=== PATIENT | male | born 1940 | race Caucasian/White ===

== ENCOUNTER 2017-02-08 08:58 | Inpatient (IN) | payer OTHER ==
[~2017-02-08] VITALS: Ht 175.3 cm; Wt 128.5 kg
[~2017-02-08 08:58] MED LIST: ACAR25TA PO; ALBU0.63 NEB; ASPI-612 PO; ASPI-618 PO; ASPI325T8 PO; ASPI81TA44 PO; BUME2TAB PO; CHOL10003 PO; CLOP75TA PO; FERR325T58 PO; FURO-68 PO; GLIP10TA13 PO; GLYB5TAB3 PO; HYDR-2678 PO; HYDR-2758 PO; INSU100C4 SQ; INSU100I13 SQ; INSU100I17 SQ; LEVO250T25 PO; LEVO500T59 PO; LIRA0.6P SQ; LISI-334 PO; Lidocaine Hcl MM; METF-620 PO; METO2.5T PO; METO25TA4 PO; MULT-208 PO; PHEN-444 PO; SIMV40TA3 PO; SPIR25TA3 PO; TAMS0.4C2 PO; TAMS0.4C97 PO; TORS20TA PO; TORS20TA2 PO; TRAZ50TA15 PO; WARF5TAB7 PO; ZOLP10TA4 PO
--- NOTE | 2017-02-08 09:26 | EKG ---
[facility] [address] [place] [address] Test Date: 2017-02-08 Test Time: 09:10:03 Pat Name: BRIDGET TATE Department: Room: Gender: M Jaw Skinner: : 1940 Requested By: CYDNEY ZAVALA Order Number: [id number] Reading MD: Teddy Butler MD Measurements Intervals [place] Rate: 98 P: -47 NM: 186 QRS: -54 QRSD: 180 T: 127 QT: 402 QTc: 515 Interpretive Statements V-PACED RHYTHM Electronically Signed On 02-11-2017 14:13:06 PHOTOGRAPHER by Teddy Butler MD
[2017-02-08 09:30] LABS: BASO # 0.1 x10^3/uL (0.0-0.2); BASO % 1 % (0-3); EOS % 5 % (0-3); HEMATOCRIT 33.8 % (39.0-53.0); HEMOGLOBIN 11.1 g/dL (13.0-17.5); LYMPH # 1.2 x10^3/uL (1.0-4.8); LYMPH % 10 % (24-48); MEAN CORPUSCULAR HEMOGLOBIN 28 pg (25-35); MEAN CORPUSCULAR HGB CONC 33 g/dL (31-37); MEAN CORPUSCULAR VOLUME 85 fL (79-100); MONO % 11 % (0-9); NEUT % 74 % (31-73); PLATELET COUNT 348 x10^3/uL (140-400); RED BLOOD COUNT 3.98 x10^6/uL (4.30-5.70); RED CELL DISTRIBUTION WIDTH 15.1 % (11.5-14.5); WHITE BLOOD COUNT 12.4 x10^3/uL (4.0-11.0)
[2017-02-08] MEDS ORDERED: FUROSEMIDE 40 MG/4 ML VIAL. IVP ONE (09:30)
[2017-02-08] MEDS ORDERED: IPRATRPIUM/ALBUTEROL 0.5/2.5MG 3 ML NEBU. NEB ONE (09:30)
[2017-02-08] MEDS ORDERED: NITROGLYCERIN OINT 1 GM PACKET. TP ONE (09:30)
[2017-02-08 09:42] LABS: CREATININE 2.9 mg/dL (0.7-1.3); GFR 21.3; POTASSIUM 3.8 mmol/L (3.5-5.1)
--- NOTE | 2017-02-08 09:42 | PHYS DOC ---
Past Medical History Past Medical History: Anxiety, CHF, COPD, Diabetes-Type II, Heart Disease, Hypertension, Renal Disease Past Surgical History: Coronary Bypass Surgery, Pacemaker, Tonsillectomy Alcohol Use: Rarely Drug Use: None Adult General Chief Complaint Chief Complaint: SHORTNESS OF BREATH HPI HPI Patient is a 76 year old with history of CHF who presents with orthopnea and dyspnea at rest. Symptoms been progressive for the past 2 weeks and been associated with a 7 pound weight gain with increased peripheral edema. e. Patient compliant with medications but did not take blood pressure medications this morning. Patient states he has had general increase in shortness of breath over the past 2 months he has been sleeping nightly in a recliner as he is unable to lie supine. He has not seen his primary care doctor chemical detection expert during this time. Patient currently denies fever, chills or sweats cough, chest pain, chest tightness, no nausea, or vomiting. No other acute symptoms or complaints. Patient's chemical detection expert is Dr. Ibarra. [] Review of Systems Review of Systems ROS as per HPI. All other systems were reviewed and found to be within normal limits, except as documented in this note. Current Medications Current Medications Current Medications Medications (Trade) Dose Ordered Sig/Cherie Start Time Stop Time Status Last Admin Dose Admin Albuterol/ Ipratropium (Duoneb) 3 ml 1X ONCE 02/08/17 09:30 02/08/17 09:38 DC 02/08/17 10:25 3 ML Furosemide (Lasix) 40 mg 1X ONCE 02/08/17 09:30 02/08/17 09:38 DC 02/08/17 09:45 40 MG Furosemide 100 mg/ Sodium Chloride 100 ml @ 0 mls/hr CONT PRN 02/08/17 11:30 Nitroglycerin (Nitro-Bid Oint) 1 inch 1X ONCE 02/08/17 09:30 02/08/17 09:38 DC 02/08/17 09:45 1 INCH Ondansetron HCl (Zofran) 4 mg PRN Q8HRS PRN 02/08/17 11:30 02/09/17 11:29 Allergies Allergies Allergies Coded Allergies Type Severity Reaction Last Updated Verified bacitracin Allergy Intermediate 05/07/14 Yes neomycin Allergy Intermediate 05/07/14 Yes polymyxin B Allergy Intermediate 05/07/14 Yes Physical Exam Physical Exam Constitutional: Well developed, well nourished, no acute distress, non-toxic appearance. [] HENT: Normocephalic, atraumatic, bilateral external ears normal, oropharynx moist, no oral exudates, nose normal. [] Eyes: PERRLA, EOMI, conjunctiva normal, no discharge. [] Neck: Normal range of motion, no tenderness, supple, no stridor. [] Cardiovascular:Heart rate regular rhythm, no murmur, pitting edema of lower extremities [] Lungs & Thorax: Bilateral breath sounds clear and is coarse breath sounds bilaterally.[] Abdomen: Bowel sounds normal, soft, habitus limiting exam.[] Extremities: No tenderness, no cyanosis. [] Neurologic: Alert and oriented X 3, normal motor function, normal sensory function, no focal deficits noted. [] Psychologic: Affect normal, judgement normal, mood normal. [] Current Patient Data Vital Signs Vital Signs Date Time Temp Pulse Resp B/P (MAP) Pulse Ox O2 Delivery O2 Flow Rate FiO2 02/08/17 10:33 86 24 164/69 (100) 94 Nasal Cannula 2.0 02/08/17 09:04 98.1 98.1 Lab Values Laboratory Tests Test 02/08/17 09:16 02/08/17 10:20 White Blood Count 12.4 x10^3/uL (4.0-11.0) H Red Blood Count 3.98 x10^6/uL (4.30-5.70) L Hemoglobin 11.1 g/dL (13.0-17.5) L Hematocrit 33.8 % (39.0-53.0) L Mean Corpuscular Volume 85 fL (79-100) Mean Corpuscular Hemoglobin 28 pg (25-35) Mean Corpuscular Hemoglobin Concent 33 g/dL (31-37) Red Cell Distribution Width 15.1 % (11.5-14.5) H Platelet Count 348 x10^3/uL (140-400) Neutrophils (%) (Auto) 74 % (31-73) H Lymphocytes (%) (Auto) 10 % (24-48) L Monocytes (%) (Auto) 11 % (0-9) H Eosinophils (%) (Auto) 5 % (0-3) H Basophils (%) (Auto) 1 % (0-3) Neutrophils # (Auto) 9.2 x10^3uL (1.8-7.7) H Lymphocytes # (Auto) 1.2 x10^3/uL (1.0-4.8) Monocytes # (Auto) 1.3 x10^3/uL (0.0-1.1) H Eosinophils # (Auto) 0.6 x10^3/uL (0.0-0.7) Basophils # (Auto) 0.1 x10^3/uL (0.0-0.2) Prothrombin Time 14.2 SEC (11.7-14.0) H Prothrombin Time INR 1.2 (0.8-1.1) H Sodium Level 127 mmol/L (136-145) L Potassium Level 3.8 mmol/L (3.5-5.1) Chloride Level 86 mmol/L (98-107) L Carbon Dioxide Level 26 mmol/L (21-32) Anion Gap 15 (6-14) H Blood Urea Nitrogen 60 mg/dL (8-26) H Creatinine 2.9 mg/dL (0.7-1.3) H Estimated GFR (Cockcroft-Gault) 21.3 BUN/Creatinine Ratio 21 (6-20) H Glucose Level 181 mg/dL (70-99) H Calcium Level 9.0 mg/dL (8.5-10.1) Total Bilirubin 0.9 mg/dL (0.2-1.0) Aspartate Amino Transferase (AST) 35 U/L (15-37) Alanine Aminotransferase (ALT) 24 U/L (16-63) Alkaline Phosphatase 68 U/L (46-116) Troponin I Quantitative 0.044 ng/mL (0.000-0.055) TL-Rad-R-Type Natriuretic Peptide 9315 pg/mL (0-449) H Total Protein 7.4 g/dL (6.4-8.2) Albumin 3.2 g/dL (3.4-5.0) L Albumin/Globulin Ratio 0.8 (1.0-1.7) L Urine Collection Type Unknown Urine Color Yellow Urine Clarity Cloudy Urine pH 6.0 Urine Specific [place] 1.010 Urine Protein Negative mg/dL (NEG-TRACE) Urine Glucose (UA) Negative mg/dL (NEG) Urine Ketones (Stick) Negative mg/dL (NEG) Urine Blood Negative (NEG) Urine Nitrite Negative (NEG) Urine Bilirubin Negative (NEG) Urine Urobilinogen Dipstick 0.2 mg/dL (0.2 mg/dL) Urine Leukocyte Esterase Large (NEG) Urine RBC 0 /HPF (0-2) Urine WBC >40 /HPF (0-4) Urine Squamous Epithelial Cells Few /LPF Urine Bacteria Few /HPF (0-FEW) Urine Hyaline Casts Few /HPF Laboratory Tests 02/08/17 09:16 Laboratory Tests 02/08/17 09:16 EKG EKG [EKG: A. fib, rate 98, left axis deviation, no acute ST-T wave changes.] Radiology/Procedures Radiology/Procedures [Chest x-ray: Mild pulmonary vascular congestion per radiology report.] Course & Med Decision Making Course & Med Decision Making Pertinent Labs and Imaging studies reviewed. (See chart for details) [Patient with congestive heart failure, chronic renal insufficiency and hyponatremia. Will admit.] Dragon Disclaimer Dragon Disclaimer This electronic medical record was generated, in whole or in part, using a voice recognition dictation system. Departure Departure Impression: Primary Impression: CHF (congestive heart failure) Disposition: ADMITTED INPATIENT Admitting Physician: Albin Damon Condition: STABLE Referrals: UNKNOWN PCP NAME (PCP) CYDNEY ZAVALA DO Feb 08, 2017 09:42
[2017-02-08 09:54] LABS: ALBUMIN 3.2 g/dL (3.4-5.0); ALBUMIN/GLOBULIN RATIO 0.8 (1.0-1.7); TOTAL BILIRUBIN 0.9 mg/dL (0.2-1.0); TOTAL PROTEIN 7.4 g/dL (6.4-8.2)
--- NOTE | 2017-02-08 10:00 | RAD ---
Portable chest, 02/08/2017: History: Shortness of breath, congestive heart failure, COPD Comparison is made to a study from 11/24/2016. There has been a previous median sternotomy. A left-sided transvenous pacemaker is in place with 2 leads extending in the right heart. The heart is enlarged. The pulmonary vascularity appears congested. There are prominent perihilar pulmonary markings compatible with mild parahilar-perivascular pulmonary edema. No significant pleural fluid is seen. IMPRESSION: Mild congestive heart failure
[2017-02-08 10:44] LABS: BILIRUBIN,URINE NEGATIVE (NEG); GLUCOSE,URINE NEGATIVE (NEG); NITRITE,URINE NEGATIVE (NEG); PROTEIN,URINE NEGATIVE (NEG-TRACE); UROBILINOGEN,URINE 0.2 mg/dL (0.2 mg/dL)
[2017-02-08 10:56] LABS: BACTERIA,URINE FEW /HPF (0-FEW); RBC,URINE 0 /HPF (0-2); SQUAMOUS EPITHELIAL CELL,UR FEW /LPF; WBC,URINE >40 /HPF (0-4)
[2017-02-08] MEDS ORDERED: ONDANSETRON PF 4 MG/2 ML VIAL. IV PRN ×2 (11:30→16:30)
[2017-02-08 11:52] LABS: INR 1.2 (0.8-1.1); PROTHROMBIN TIME PATIENT 14.2 SEC (11.7-14.0)
[2017-02-08 12:30] VITALS: BP 121/46
[2017-02-08] MEDS ORDERED: TRAZ100T12 PO (13:54)
[2017-02-08] MEDS: FUROSEMIDE INJ 100 MG in IV NORMAL SALINE 100ML 100 ML IV PRN (14:42)
[2017-02-08 15:00] VITALS: BP 129/52
--- NOTE | 2017-02-08 15:26 | PDOC2 ---
CONSULT Date of Consult Date of Consult DATE: 02/08/17 TIME: 15:18 Reason for Consult Reason for Consult: Dyspnea Referring Physician Referring Physician: Dr Damon Identification/Chief Complaint Chief Complaint Dyspnea Problems: History of Present Illness Reason for Visit: This patient is a 76-year-old gentleman that has a known history of an ischemic cardiomyopathy, hypertension, chronic renal disease and usually I see him at the [facility]. The last echocardiogram that the patient had was done 2 months ago and it showed : Technically difficult study. Left ventricle systolic function is severely impaired. The Ejection Fraction is 25%. The left atrium is moderately dilated. There is a pacemaker lead in the right atrium and right ventricle. Mild tricuspid regurgitation. The pulmonary artery systolic pressure is estimated at 33 mmHg. There is no evidence of significant pericardial effusion. For several days the patient has been getting more and more short of breath and more and more edematous and is unable to get around like he used to because of increasing shortness of breath. He came into the emergency room and after being seen and evaluated he was admitted. At the time that I saw him he is complaining of dyspnea and denies any angina. Past Medical History Cardiovascular: CAD, CHF, HTN, [place], Hyperlipidemia GI: No pertinent hx, Constipation Renal/: Chronic renal insuff Endocrine: Diabetes Past Surgical History Past Surgical History: Pacemaker, Arthroscopy, CABG Family History Family History: Hypertension Social History ALCOHOL: none Drugs: None Current Problem List Problem List Problems Medical Problems: (1) CHF (congestive heart failure) Status: Acute Current Medications Current Medications Current Medications Albuterol/ Ipratropium (Duoneb) 3 ml 1X ONCE NEB Last administered on 10:25; Start 02/08/17 at 09:30; Stop 02/08/17 at 09:38; Status DC Nitroglycerin (Nitro-Bid Oint) 1 inch 1X ONCE TP Last administered on 09:45; Start 02/08/17 at 09:30; Stop 02/08/17 at 09:38; Status DC Furosemide (Lasix) 40 mg 1X ONCE IVP Last administered on 02/08/17 09:45; Start 02/08/17 at 09:30; Stop 02/08/17 at 09:38; Status DC Ondansetron HCl (Zofran) 4 mg PRN Q8HRS PRN IV NAUSEA/VOMITING; Start at 11:30; Stop 02/09/17 at 11:29 Furosemide 100 mg/ Sodium Chloride 100 ml @ 0 mls/hr CONT PRN IV PER PROTOCOL Last administered on 02/08/17t 14:42; Start 02/08/17 at 11:30 Active Scripts Active Novolog (Insulin Aspart) 100 Unit/1 Ml Cartridge 25 Unit SQ TID 30 Days Metolazone 2.5 Mg Tablet 2.5 Mg PO DAILY Flomax (Tamsulosin Hcl) 0.4 Mg Cap.er.24h 0.4 Mg PO DAILY Reported Trazodone Hcl 100 Mg Tablet 100 Mg PO HS Glipizide 10 Mg Tablet 1 Tab PO BID Spironolactone 25 Mg Tablet 1 Tab PO DAILY Multi-Day Vitamins (Multivitamin) 1 Each Tablet 1 Tab PO DAILY Vitamin D3 (Cholecalciferol (Vitamin D3)) 1,000 Unit Tablet 1 Tab PO DAILY Aspirin 325 Mg Tablet 1 Tab PO DAILY Bumetanide 2 Mg Tablet 1 Tab PO DAILY Lantus Solostar (Insulin Glargine,Hum.rec.anlog) 100 Unit/1 Ml Insuln.pen 75 Unit SQ QHS Clopidogrel (Clopidogrel Bisulfate) 75 Mg Tablet 1 Tab PO DAILY Allergies Allergies: Coded Allergies: bacitracin (Verified Allergy, Intermediate, 05/07/14) neomycin (Verified Allergy, Intermediate, 05/07/14) polymyxin B (Verified Allergy, Intermediate, 05/07/14) Physical Exam General: Alert, Oriented X3, Cooperative, mild distress HEENT: PERRLA Lungs: Other (decreased breath sounds with bibasilar rales about a third of the way up. Mild wheezing.) Heart: Regular rate, Other (S1-S2 positive S3.) Abdomen: Normal bowel sounds, Soft Extremities: Other (2-3+ pitting edema of both lower extremities) Psych/Mental Status: Mental status NL Vitals VITALS Vital Signs Date Time Temp Pulse Resp B/P (MAP) Pulse Ox O2 Delivery O2 Flow Rate FiO2 02/08/17 12:15 90 18 119/72 (88) 98 Nasal Cannula 2.0 02/08/17 09:04 98.1 98.1 Labs Labs Laboratory Tests Test 02/08/17 09:16 02/08/17 10:20 White Blood Count 12.4 x10^3/uL (4.0-11.0) Red Blood Count 3.98 x10^6/uL (4.30-5.70) Hemoglobin 11.1 g/dL (13.0-17.5) Hematocrit 33.8 % (39.0-53.0) Mean Corpuscular Volume 85 fL (79-100) Mean Corpuscular Hemoglobin 28 pg (25-35) Mean Corpuscular Hemoglobin Concent 33 g/dL (31-37) Red Cell Distribution Width 15.1 % (11.5-14.5) Platelet Count 348 x10^3/uL (140-400) Neutrophils (%) (Auto) 74 % (31-73) Lymphocytes (%) (Auto) 10 % (24-48) Monocytes (%) (Auto) 11 % (0-9) Eosinophils (%) (Auto) 5 % (0-3) Basophils (%) (Auto) 1 % (0-3) Neutrophils # (Auto) 9.2 x10^3uL (1.8-7.7) Lymphocytes # (Auto) 1.2 x10^3/uL (1.0-4.8) Monocytes # (Auto) 1.3 x10^3/uL (0.0-1.1) Eosinophils # (Auto) 0.6 x10^3/uL (0.0-0.7) Basophils # (Auto) 0.1 x10^3/uL (0.0-0.2) Prothrombin Time 14.2 SEC (11.7-14.0) Prothromb Time International Ratio 1.2 (0.8-1.1) Sodium Level 127 mmol/L (136-145) Potassium Level 3.8 mmol/L (3.5-5.1) Chloride Level 86 mmol/L (98-107) Carbon Dioxide Level 26 mmol/L (21-32) Anion Gap 15 (6-14) Blood Urea Nitrogen 60 mg/dL (8-26) Creatinine 2.9 mg/dL (0.7-1.3) Estimated GFR (Cockcroft-Gault) 21.3 BUN/Creatinine Ratio 21 (6-20) Glucose Level 181 mg/dL (70-99) Calcium Level 9.0 mg/dL (8.5-10.1) Total Bilirubin 0.9 mg/dL (0.2-1.0) Aspartate Amino Transf (AST/SGOT) 35 U/L (15-37) Alanine Aminotransferase (ALT/SGPT) 24 U/L (16-63) Alkaline Phosphatase 68 U/L (46-116) Troponin I Quantitative 0.044 ng/mL (0.000-0.055) QQ-Mrd-N-Type Natriuretic Peptide 9315 pg/mL (0-449) Total Protein 7.4 g/dL (6.4-8.2) Albumin 3.2 g/dL (3.4-5.0) Albumin/Globulin Ratio 0.8 (1.0-1.7) Urine Collection Type Unknown Urine Color Yellow Urine Clarity Cloudy Urine pH 6.0 Urine Specific [place] 1.010 Urine Protein Negative mg/dL (NEG-TRACE) Urine Glucose (UA) Negative mg/dL (NEG) Urine Ketones (Stick) Negative mg/dL (NEG) Urine Blood Negative (NEG) Urine Nitrite Negative (NEG) Urine Bilirubin Negative (NEG) Urine Urobilinogen Dipstick 0.2 mg/dL (0.2 mg/dL) Urine Leukocyte Esterase Large (NEG) Urine RBC 0 /HPF (0-2) Urine WBC >40 /HPF (0-4) Urine Squamous Epithelial Cells Few /LPF Urine Bacteria Few /HPF (0-FEW) Urine Hyaline Casts Few /HPF Laboratory Tests Test 02/08/17 09:16 02/08/17 10:20 White Blood Count 12.4 x10^3/uL (4.0-11.0) Red Blood Count 3.98 x10^6/uL (4.30-5.70) Hemoglobin 11.1 g/dL (13.0-17.5) Hematocrit 33.8 % (39.0-53.0) Mean Corpuscular Volume 85 fL (79-100) Mean Corpuscular Hemoglobin 28 pg (25-35) Mean Corpuscular Hemoglobin Concent 33 g/dL (31-37) Red Cell Distribution Width 15.1 % (11.5-14.5) Platelet Count 348 x10^3/uL (140-400) Neutrophils (%) (Auto) 74 % (31-73) Lymphocytes (%) (Auto) 10 % (24-48) Monocytes (%) (Auto) 11 % (0-9) Eosinophils (%) (Auto) 5 % (0-3) Basophils (%) (Auto) 1 % (0-3) Neutrophils # (Auto) 9.2 x10^3uL (1.8-7.7) Lymphocytes # (Auto) 1.2 x10^3/uL (1.0-4.8) Monocytes # (Auto) 1.3 x10^3/uL (0.0-1.1) Eosinophils # (Auto) 0.6 x10^3/uL (0.0-0.7) Basophils # (Auto) 0.1 x10^3/uL (0.0-0.2) Prothrombin Time 14.2 SEC (11.7-14.0) Prothromb Time International Ratio 1.2 (0.8-1.1) Sodium Level 127 mmol/L (136-145) Potassium Level 3.8 mmol/L (3.5-5.1) Chloride Level 86 mmol/L (98-107) Carbon Dioxide Level 26 mmol/L (21-32) Anion Gap 15 (6-14) Blood Urea Nitrogen 60 mg/dL (8-26) Creatinine 2.9 mg/dL (0.7-1.3) Estimated GFR (Cockcroft-Gault) 21.3 BUN/Creatinine Ratio 21 (6-20) Glucose Level 181 mg/dL (70-99) Calcium Level 9.0 mg/dL (8.5-10.1) Total Bilirubin 0.9 mg/dL (0.2-1.0) Aspartate Amino Transf (AST/SGOT) 35 U/L (15-37) Alanine Aminotransferase (ALT/SGPT) 24 U/L (16-63) Alkaline Phosphatase 68 U/L (46-116) Troponin I Quantitative 0.044 ng/mL (0.000-0.055) YC-Cgg-L-Type Natriuretic Peptide 9315 pg/mL (0-449) Total Protein 7.4 g/dL (6.4-8.2) Albumin 3.2 g/dL (3.4-5.0) Albumin/Globulin Ratio 0.8 (1.0-1.7) Urine Collection Type Unknown Urine Color Yellow Urine Clarity Cloudy Urine pH 6.0 Urine Specific [place] 1.010 Urine Protein Negative mg/dL (NEG-TRACE) Urine Glucose (UA) Negative mg/dL (NEG) Urine Ketones (Stick) Negative mg/dL (NEG) Urine Blood Negative (NEG) Urine Nitrite Negative (NEG) Urine Bilirubin Negative (NEG) Urine Urobilinogen Dipstick 0.2 mg/dL (0.2 mg/dL) Urine Leukocyte Esterase Large (NEG) Urine RBC 0 /HPF (0-2) Urine WBC >40 /HPF (0-4) Urine Squamous Epithelial Cells Few /LPF Urine Bacteria Few /HPF (0-FEW) Urine Hyaline Casts Few /HPF Assessment/Plan Assessment/Plan This patient with a dilated ischemic cardiomyopathy comes in with acute on chronic systolic CHF. He has chronic renal disease and in view of this and a creatinine that is above 2 I would recommend to start the patient on a Lasix drip at 10 mg per hour rather than doing boluses. I would also like to start the patient on a dobutamine drip at 5 mics per KG per minute. We need to have an accurate I/O therefore I would also recommend a Srivastava. I will be happy to follow the patient with you. Thank you very much for asking me to participate in the care of this patient. OKSANA JOSEPH MD Feb 08, 2017 15:26
[2017-02-08] MEDS ORDERED: DEXTROSE 50% 25 GM / 50ML DISP.SYRIN. IV PRN (16:30)
[2017-02-08] MEDS ORDERED: hydrALAZINE 20 MG/ML VIAL. IVP PRN (16:30)
[2017-02-08] MEDS ORDERED: MORPHINE SULFATE 4 MG/ML DISP.SYRIN. IV PRN (16:30)
[2017-02-08] MEDS ORDERED: ACETAMINOPHEN 325 MG TABLET. PO PRN (16:30)
[2017-02-08] MEDS ORDERED: ALBUTEROL SULFATE 2.5 MG/3 ML NEBU. NEB PRN (16:30)
--- NOTE | 2017-02-08 16:32 | PDOC1 ---
History and Physical Date of Admission Date of Admission 02/08/17 Identification/Chief Complaint Chief Complaint sob Problems: Source Source: Chart review, Patient History of Present Illness History of Present Illness HPI HPI Patient is a 76 year old with history of CHF who presents with orthopnea and dyspnea at rest x 2 weeks. pt said he didnot get Echo this year, but as per dr. Ohara, 2ms ago echo showed Ef 25%. pt said has sob for 2 weeks, no home o2, orthopnea, also cough with some green sputum, denies fever, chills. Cannot sleep in bed, use recliner to sleep for at lest 2 months. He is on diuretics, watching his salt intake, noticed bl leg more edema then came to ER. denies N/V, diarrhea. Patient's cyber engineer is Dr. Ibarra. Past Medical History Cardiovascular: CAD, CHF, HTN, [place], Hyperlipidemia GI: No pertinent hx, Constipation Renal/: Chronic renal insuff Endocrine: Diabetes Past Surgical History Past Surgical History: Pacemaker, Arthroscopy, CABG Family History Family History: Hypertension Social History Smoke: No ALCOHOL: none Drugs: None Current Problem List Problem List Problems Medical Problems: (1) CHF (congestive heart failure) Status: Acute Current Medications Current Medications Current Medications Medications (Trade) Dose Ordered Sig/Cherie Start Time Stop Time Status Last Admin Dose Admin Albuterol/ Ipratropium (Duoneb) 3 ml 1X ONCE 02/08/17 09:30 02/08/17 09:38 DC 02/08/17 10:25 3 ML Furosemide (Lasix) 40 mg 1X ONCE 02/08/17 09:30 02/08/17 09:38 DC 02/08/17 09:45 40 MG Furosemide 100 mg/ Sodium Chloride 100 ml @ 0 mls/hr CONT PRN 02/08/17 11:30 02/08/17 14:42 10 MLS/HR Nitroglycerin (Nitro-Bid Oint) 1 inch 1X ONCE 02/08/17 09:30 02/08/17 09:38 DC 02/08/17 09:45 1 INCH Ondansetron HCl (Zofran) 4 mg PRN Q8HRS PRN 02/08/17 11:30 02/09/17 11:29 Allergies Allergies Allergies Coded Allergies Type Severity Reaction Last Updated Verified bacitracin Allergy Intermediate 05/07/14 Yes neomycin Allergy Intermediate 05/07/14 Yes polymyxin B Allergy Intermediate 05/07/14 Yes ROS Review of System CONSTITUTIONAL: No fever or chills EYES: No recent changes SKIN: No rash or itching CARDIOVASCULAR: No chest pain, syncope, palpitations, or edema RESPIRATORY: No SOB or cough GASTROINTESTINAL: No nausea, vomiting or abdominal pain NEUROLOGICAL: No headaches or weakness ENDOCRINE: No cold or heat intolerance GENITOURINARY: No urgency or frequency of urination MUSCULOSKELETAL: No back pain or joint pain LYMPHATICS: No enlarged lymph nodes PSYCHIATRIC: No anxiety or depression Physical Exam Physical Exam GEN.: No apparent distress. Alert and oriented. HEENT: Head is normocephalic, atraumatic NECK: Supple. LUNGS: bl lower lob moderate crackles HEART: RRR, S1, S2 present. Peripheral pulses intact ABDOMEN: Soft, nontender. Positive bowel sounds. EXTREMITIES: Without any cyanosis. bl leg 2+ edema NEUROLOGIC: Normal speech, normal tone PSYCHIATRIC: Normal affect, normal mood. SKIN: No ulcerations Vitals Vitals Vital Signs Date Time Temp Pulse Resp B/P (MAP) Pulse Ox O2 Delivery O2 Flow Rate FiO2 02/08/17 12:30 97.3 99 20 121/46 (71) 93 Nasal Cannula 2.0 97.3 Labs Labs Laboratory Tests Test 02/08/17 09:16 02/08/17 10:20 White Blood Count 12.4 x10^3/uL (4.0-11.0) Red Blood Count 3.98 x10^6/uL (4.30-5.70) Hemoglobin 11.1 g/dL (13.0-17.5) Hematocrit 33.8 % (39.0-53.0) Mean Corpuscular Volume 85 fL (79-100) Mean Corpuscular Hemoglobin 28 pg (25-35) Mean Corpuscular Hemoglobin Concent 33 g/dL (31-37) Red Cell Distribution Width 15.1 % (11.5-14.5) Platelet Count 348 x10^3/uL (140-400) Neutrophils (%) (Auto) 74 % (31-73) Lymphocytes (%) (Auto) 10 % (24-48) Monocytes (%) (Auto) 11 % (0-9) Eosinophils (%) (Auto) 5 % (0-3) Basophils (%) (Auto) 1 % (0-3) Neutrophils # (Auto) 9.2 x10^3uL (1.8-7.7) Lymphocytes # (Auto) 1.2 x10^3/uL (1.0-4.8) Monocytes # (Auto) 1.3 x10^3/uL (0.0-1.1) Eosinophils # (Auto) 0.6 x10^3/uL (0.0-0.7) Basophils # (Auto) 0.1 x10^3/uL (0.0-0.2) Prothrombin Time 14.2 SEC (11.7-14.0) Prothromb Time International Ratio 1.2 (0.8-1.1) Sodium Level 127 mmol/L (136-145) Potassium Level 3.8 mmol/L (3.5-5.1) Chloride Level 86 mmol/L (98-107) Carbon Dioxide Level 26 mmol/L (21-32) Anion Gap 15 (6-14) Blood Urea Nitrogen 60 mg/dL (8-26) Creatinine 2.9 mg/dL (0.7-1.3) Estimated GFR (Cockcroft-Gault) 21.3 BUN/Creatinine Ratio 21 (6-20) Glucose Level 181 mg/dL (70-99) Calcium Level 9.0 mg/dL (8.5-10.1) Total Bilirubin 0.9 mg/dL (0.2-1.0) Aspartate Amino Transf (AST/SGOT) 35 U/L (15-37) Alanine Aminotransferase (ALT/SGPT) 24 U/L (16-63) Alkaline Phosphatase 68 U/L (46-116) Troponin I Quantitative 0.044 ng/mL (0.000-0.055) IA-Cvn-Z-Type Natriuretic Peptide 9315 pg/mL (0-449) Total Protein 7.4 g/dL (6.4-8.2) Albumin 3.2 g/dL (3.4-5.0) Albumin/Globulin Ratio 0.8 (1.0-1.7) Urine Collection Type Unknown Urine Color Yellow Urine Clarity Cloudy Urine pH 6.0 Urine Specific [place] 1.010 Urine Protein Negative mg/dL (NEG-TRACE) Urine Glucose (UA) Negative mg/dL (NEG) Urine Ketones (Stick) Negative mg/dL (NEG) Urine Blood Negative (NEG) Urine Nitrite Negative (NEG) Urine Bilirubin Negative (NEG) Urine Urobilinogen Dipstick 0.2 mg/dL (0.2 mg/dL) Urine Leukocyte Esterase Large (NEG) Urine RBC 0 /HPF (0-2) Urine WBC >40 /HPF (0-4) Urine Squamous Epithelial Cells Few /LPF Urine Bacteria Few /HPF (0-FEW) Urine Hyaline Casts Few /HPF Laboratory Tests Test 02/08/17 09:16 02/08/17 10:20 White Blood Count 12.4 x10^3/uL (4.0-11.0) Red Blood Count 3.98 x10^6/uL (4.30-5.70) Hemoglobin 11.1 g/dL (13.0-17.5) Hematocrit 33.8 % (39.0-53.0) Mean Corpuscular Volume 85 fL (79-100) Mean Corpuscular Hemoglobin 28 pg (25-35) Mean Corpuscular Hemoglobin Concent 33 g/dL (31-37) Red Cell Distribution Width 15.1 % (11.5-14.5) Platelet Count 348 x10^3/uL (140-400) Neutrophils (%) (Auto) 74 % (31-73) Lymphocytes (%) (Auto) 10 % (24-48) Monocytes (%) (Auto) 11 % (0-9) Eosinophils (%) (Auto) 5 % (0-3) Basophils (%) (Auto) 1 % (0-3) Neutrophils # (Auto) 9.2 x10^3uL (1.8-7.7) Lymphocytes # (Auto) 1.2 x10^3/uL (1.0-4.8) Monocytes # (Auto) 1.3 x10^3/uL (0.0-1.1) Eosinophils # (Auto) 0.6 x10^3/uL (0.0-0.7) Basophils # (Auto) 0.1 x10^3/uL (0.0-0.2) Prothrombin Time 14.2 SEC (11.7-14.0) Prothromb Time International Ratio 1.2 (0.8-1.1) Sodium Level 127 mmol/L (136-145) Potassium Level 3.8 mmol/L (3.5-5.1) Chloride Level 86 mmol/L (98-107) Carbon Dioxide Level 26 mmol/L (21-32) Anion Gap 15 (6-14) Blood Urea Nitrogen 60 mg/dL (8-26) Creatinine 2.9 mg/dL (0.7-1.3) Estimated GFR (Cockcroft-Gault) 21.3 BUN/Creatinine Ratio 21 (6-20) Glucose Level 181 mg/dL (70-99) Calcium Level 9.0 mg/dL (8.5-10.1) Total Bilirubin 0.9 mg/dL (0.2-1.0) Aspartate Amino Transf (AST/SGOT) 35 U/L (15-37) Alanine Aminotransferase (ALT/SGPT) 24 U/L (16-63) Alkaline Phosphatase 68 U/L (46-116) Troponin I Quantitative 0.044 ng/mL (0.000-0.055) HE-Zbg-C-Type Natriuretic Peptide 9315 pg/mL (0-449) Total Protein 7.4 g/dL (6.4-8.2) Albumin 3.2 g/dL (3.4-5.0) Albumin/Globulin Ratio 0.8 (1.0-1.7) Urine Collection Type Unknown Urine Color Yellow Urine Clarity Cloudy Urine pH 6.0 Urine Specific [place] 1.010 Urine Protein Negative mg/dL (NEG-TRACE) Urine Glucose (UA) Negative mg/dL (NEG) Urine Ketones (Stick) Negative mg/dL (NEG) Urine Blood Negative (NEG) Urine Nitrite Negative (NEG) Urine Bilirubin Negative (NEG) Urine Urobilinogen Dipstick 0.2 mg/dL (0.2 mg/dL) Urine Leukocyte Esterase Large (NEG) Urine RBC 0 /HPF (0-2) Urine WBC >40 /HPF (0-4) Urine Squamous Epithelial Cells Few /LPF Urine Bacteria Few /HPF (0-FEW) Urine Hyaline Casts Few /HPF VTE Prophylaxis Ordered VTE Prophylaxis Devices: Yes VTE Pharmacological Prophylaxi: Yes Assessment/Plan Assessment/Plan acute resp failure with hypoxia acute on chronic systolic CHF exacerbation EF 25% PPM COPD DM2 ON insulin htn h/o CAD with CABG anxiety 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 Ohara, on lasix drip and dobutamin slightly decrease insulin to levemir 60u qhs, aspart 20u tid, ssi cont home meds, hold po diuretics till ok with card dvt ppx albuterol, duoneb daily weight in and out PTOT NILDA PORTILLO MD Feb 08, 2017 16:32
[2017-02-08] MEDS: IPRATRPIUM/ALBUTEROL 0.5/2.5MG 3 ML NEBU. NEB SCH ×2 (16:39→19:46)
[2017-02-08] MEDS ORDERED: ALPRAZolam 0.25 MG TABLET PO PRN (17:15)
[2017-02-08] MEDS: INSULIN ASPART 300 UNITS/3 ML INSULN.PEN SQ SCH ×2 (17:56→17:57)
[2017-02-08 19:00] VITALS: BP 96/55
[2017-02-08] MEDS: cefTRIAXone IV Push 1 GM VIAL. IVP SCH (20:30)
[2017-02-08] MEDS: traZODone 100 MG TABLET. PO SCH (20:57)
[2017-02-08] MEDS: ALPRAZolam 0.25 MG TABLET PO PRN (20:57)
[2017-02-08] MEDS: HEPARIN PF for SUB-Q USE 5,000 UNIT/0.5 ML VIAL. SQ SCH (21:00)
[2017-02-08] MEDS: INSULIN DETEMIR 300 UNITS/3 ML INSULN.PEN. SQ SCH (21:00)
[2017-02-08] MEDS: traMADol 50 MG TABLET PO PRN (21:45)
[2017-02-08 22:51] VITALS: BP 93/57
[2017-02-09] VITALS (13 sets, daily range): BP systolic 97–152; BP diastolic 35–80
[2017-02-09] MEDS: HEPARIN PF for SUB-Q USE 5,000 UNIT/0.5 ML VIAL. SQ SCH ×3 (06:01→22:16)
[2017-02-09 07:08] LABS: BASO # 0.1 x10^3/uL (0.0-0.2); BASO % 1 % (0-3); EOS % 10 % (0-3); HEMATOCRIT 32.4 % (39.0-53.0); HEMOGLOBIN 10.9 g/dL (13.0-17.5); LYMPH # 1.4 x10^3/uL (1.0-4.8); LYMPH % 13 % (24-48); MEAN CORPUSCULAR HEMOGLOBIN 28 pg (25-35); MEAN CORPUSCULAR HGB CONC 34 g/dL (31-37); MEAN CORPUSCULAR VOLUME 84 fL (79-100); MONO % 12 % (0-9); NEUT % 65 % (31-73); PLATELET COUNT 335 x10^3/uL (140-400); RED BLOOD COUNT 3.83 x10^6/uL (4.30-5.70); WHITE BLOOD COUNT 10.2 x10^3/uL (4.0-11.0)
[2017-02-09 07:13] LABS: CALCIUM 9.3 mg/dL (8.5-10.1); CREATININE 2.6 mg/dL (0.7-1.3); GFR 24.2
[2017-02-09 07:16] LABS: POTASSIUM 2.9 mmol/L (3.5-5.1)
[2017-02-09] MEDS: INSULIN ASPART 300 UNITS/3 ML INSULN.PEN SQ SCH ×6 (07:30→17:33)
[2017-02-09] MEDS: IPRATRPIUM/ALBUTEROL 0.5/2.5MG 3 ML NEBU. NEB SCH ×4 (08:07→20:23)
[2017-02-09] MEDS ORDERED: POTASSIUM CHLORIDE 20 MEQ TABLET.ER. PO ONE ×2 (08:15→12:00)
[2017-02-09] MEDS: FUROSEMIDE INJ 100 MG in IV NORMAL SALINE 100ML 100 ML IV PRN ×2 (08:38→19:44)
[2017-02-09] MEDS: MULTIVITAMIN with MINERAL TABLET. PO SCH (08:41)
[2017-02-09] MEDS: TAMSULOSIN 0.4 MG CAP.ER.24H. PO SCH (08:41)
[2017-02-09] MEDS: CHOLECALCIFEROL (VITAMIN D3) 1,000 UNIT TABLET PO SCH (08:42)
[2017-02-09] MEDS: ASPIRIN 325 MG TABLET PO SCH (08:42)
[2017-02-09] MEDS: CLOPIDOGREL BISULFATE 75 MG TABLET PO SCH (08:42)
[2017-02-09] MEDS: ALPRAZolam 0.25 MG TABLET PO PRN ×2 (08:43→22:35)
[2017-02-09] MEDS ORDERED: metOLazone 2.5 MG TABLET PO SCH (09:00)
[2017-02-09] MEDS ORDERED: SPIRONOLACTONE 25 MG TABLET PO SCH (09:00)
[2017-02-09] MEDS ORDERED: NON FORMULARY ITEM (Bumetanide 1 TAB) PO SCH (09:00)
--- NOTE | 2017-02-09 11:07 | PDOC2 ---
CONSULT Date of Consult Date of Consult DATE: 02/09/17 TIME: 10:55 Reason for Consult Reason for Consult: CKD III/ IV CHF Exac Referring Physician Referring Physician: Dr Damon Identification/Chief Complaint Chief Complaint SOb and edema Problems: Source Source: Chart review, Patient History of Present Illness Reason for Visit: as dictated Past Medical History Cardiovascular: CAD, CHF, HTN, [place], Hyperlipidemia GI: No pertinent hx, Constipation Renal/: Chronic renal insuff Endocrine: Diabetes Past Surgical History Past Surgical History: Pacemaker, Arthroscopy, CABG Family History Family History: Hypertension Social History No ALCOHOL: none Drugs: None Lives: with Family Current Problem List Problem List Problems Medical Problems: (1) CHF (congestive heart failure) Status: Acute Current Medications Current Medications Current Medications Albuterol/ Ipratropium (Duoneb) 3 ml 1X ONCE NEB Last administered on 10:25; Start 02/08/17 at 09:30; Stop 02/08/17 at 09:38; Status DC Nitroglycerin (Nitro-Bid Oint) 1 inch 1X ONCE TP Last administered on 09:45; Start 02/08/17 at 09:30; Stop 02/08/17 at 09:38; Status DC Furosemide (Lasix) 40 mg 1X ONCE IVP Last administered on 02/08/17 09:45; Start 02/08/17 at 09:30; Stop 02/08/17 at 09:38; Status DC Ondansetron HCl (Zofran) 4 mg PRN Q8HRS PRN IV NAUSEA/VOMITING; Start at 11:30; Stop 02/09/17 at 11:29 Furosemide 100 mg/ Sodium Chloride 100 ml @ 0 mls/hr CONT PRN IV PER PROTOCOL Last administered on 02/09/17 08:38; Start 02/08/17 at 11:30 Aspirin (Bhavya Aspirin) 325 mg DAILY PO Last administered on 02/09/17 08:42; Start 02/09/17 at 09:00 Vitamin D (Vitamin D3) 1,000 unit DAILY PO Last administered on 02/09/17 08: 42; Start 02/09/17 at 09:00 Clopidogrel Bisulfate (Plavix) 75 mg DAILY PO Last administered on 02/09/17 08:42; Start 02/09/17 at 09:00 Metolazone (Zaroxolyn) 2.5 mg DAILY PO ; Start 02/09/17 at 09:00; Stop at 09:00; Status DC Spironolactone (Aldactone) 25 mg DAILY PO ; Start 02/09/17 at 09:00 Tamsulosin HCl (Flomax) 0.4 mg DAILY PO Last administered on 02/09/17 08:41; Start 02/09/17 at 09:00 Trazodone HCl (Desyrel) 100 mg HS PO Last administered on 02/08/17 20:57; Start 02/08/17 at 21:00 Non-Formulary Medication 1 tab DAILY PO ; Start 02/09/17 at 09:00; Stop at 09:00; Status DC Glipizide (Glucotrol) 10 mg BIDBFRMEAL PO ; Start 02/09/17 at 17:00 Insulin Aspart (NovoLOG) 20 units TIDAC SQ Last administered on 02/08/17 17: 56; Start 02/08/17 at 16:30 Insulin Detemir (Levemir) 60 units QHS SQ ; Start 02/08/17 at 21:00 Multivitamins (Thera M Plus) 1 tab DAILY PO Last administered on 02/09/17 08: 41; Start 02/09/17 at 09:00 Acetaminophen (Tylenol) 650 mg PRN Q6HRS PRN PO FEVER; Start 02/08/17 at 16:30 Ondansetron HCl (Zofran) 4 mg PRN Q6HRS PRN IV NAUSEA/VOMITING; Start at 16:30 Morphine Sulfate 2 mg PRN Q2HR PRN IV PAIN; Start 02/08/17 at 16:30 Tramadol HCl (Ultram) 50 mg PRN Q6HRS PRN PO PAIN Last administered on 21:45; Start 02/08/17 at 16:30 Hydralazine HCl (Apresoline Inj) 10 mg PRN Q4HRS PRN IVP ELEVATED BP, SEE COMMENTS; Start 02/08/17 at 16:30 Docusate Sodium (Colace) 100 mg PRN DAILY PRN PO CONSTIPATION; Start 02/08/17 at 16:30 Insulin Aspart (NovoLOG) 0-9 UNITS TIDWMEALS SQ Last administered on 17:57; Start 02/08/17 at 17:00 Dextrose (Dextrose 50%-Water Syringe) 12.5 gm PRN Q15MIN PRN IV SEE COMMENTS; Start 02/08/17 at 16:30 Albuterol Sulfate (Ventolin Neb Soln) 2.5 mg PRN Q4HRS PRN NEB SHORTNESS OF BREATH; Start 02/08/17 at 16:30 Albuterol/ Ipratropium (Duoneb) 3 ml RTQID NEB Last administered on 02/09/17 08:07; Start 02/08/17 at 17:00 Heparin Sodium (Porcine) (Heparin Sq) 5,000 unit Q8HRS SQ Last administered on 02/09/17 06:01; Start 02/08/17 at 22:00 Alprazolam (Xanax) 0.25 mg PRN BID PRN PO ANXIETY / AGITATION Last administered on 02/08/17 17:52; Start 02/08/17 at 17:15; Stop 02/08/17 at 19 :44; Status DC Ceftriaxone Sodium 50 ml @ 100 mls/hr DAILY IV ; Start 02/09/17 at 09:00; Status UNV Alprazolam (Xanax) 0.5 mg PRN Q6HRS PRN PO ANXIETY / AGITATION Last administered on 02/09/17 08:43; Start 02/08/17 at 19:45 Ceftriaxone Sodium (Rocephin) 1 gm Q24H IVP Last administered on 02/08/17 20: 30; Start 02/08/17 at 20:00 Potassium Chloride (Klor-Con) 40 meq 1X ONCE PO Last administered on 08:43; Start 02/09/17 at 08:15; Stop 02/09/17 at 08:16; Status DC Potassium Chloride (Klor-Con) 40 meq 1X ONCE PO ; Start 02/09/17 at 12:00; Stop 02/09/17 at 12:01 Dobutamine HCl/ Dextrose 250 ml @ 0 mls/hr CONT PRN IV SEE I/O RECORD Last administered on 02/09/17 08:40; Start 02/09/17 at 08:15 Active Scripts Active Novolog (Insulin Aspart) 100 Unit/1 Ml Cartridge 25 Unit SQ TID 30 Days Metolazone 2.5 Mg Tablet 2.5 Mg PO DAILY Flomax (Tamsulosin Hcl) 0.4 Mg Cap.er.24h 0.4 Mg PO DAILY Reported Trazodone Hcl 100 Mg Tablet 100 Mg PO HS Glipizide 10 Mg Tablet 1 Tab PO BID Spironolactone 25 Mg Tablet 1 Tab PO DAILY Multi-Day Vitamins (Multivitamin) 1 Each Tablet 1 Tab PO DAILY Vitamin D3 (Cholecalciferol (Vitamin D3)) 1,000 Unit Tablet 1 Tab PO DAILY Aspirin 325 Mg Tablet 1 Tab PO DAILY Bumetanide 2 Mg Tablet 1 Tab PO DAILY Lantus Solostar (Insulin Glargine,Hum.rec.anlog) 100 Unit/1 Ml Insuln.pen 75 Unit SQ QHS Clopidogrel (Clopidogrel Bisulfate) 75 Mg Tablet 1 Tab PO DAILY Allergies Allergies: Coded Allergies: bacitracin (Verified Allergy, Intermediate, 05/07/14) neomycin (Verified Allergy, Intermediate, 05/07/14) polymyxin B (Verified Allergy, Intermediate, 05/07/14) ROS Review of System GEN: no Fevers no Chills EYES: no new Visual Complaints ENT: no EN Drainage no Hearing deficiets CVS: min Orthopnea no CP RESP: + SOB + HERNANDEZ GI: no Nausea no Vomiting : + Dysuria occ Urgency HEME: no easy bruising no Palp Ly Nodes NEURO no Focal Weakness no Sz PSYCH: no Suicidal Ideation no Depression SKIN: no Rashes ENDO: no Polyuria or Polydipsia no Hot/Cold Intolerance MU SK: no Arthraigia no Myalgia Physical Exam Physical Exam General Appearance: Awake Alert Oriented x 3 In no Distress - drowsy - morbildy obese Eyes: VIsion Unchanged Conjunctiva Normal EN: No EN Drainage Mucous Memb. mosit Neck: no JVD no JVP Supple no Thyromegaly - thick neck CVS: S1 S2 ? Murmur No Gallop No Rub +2-3 Edema Resp: no Rales no Rhonchi no Acc. Muscle use GI: BAS +ve NO Bruit Non Tender Non Distended - obese : no CVA tenderness; no Suprapubic Tenderness SKIN: no Rashes Breast Exam deferred Mu.Sk: Adequate ROM no Muscle Atrophy Heme: Unable to palpate Obvious LAD no Splenomegaly NEURO: Good Strength and Tone Cranial Nerves II - XII grossly intact Psych: ? Depressed no Active hallucination Vital Signs Vital Signs Date Time Temp Pulse Resp B/P (MAP) Pulse Ox O2 Delivery O2 Flow Rate FiO2 02/09/17 08:07 95 Nasal Cannula 2.0 02/09/17 06:16 98.9 80 18 97/64 (75) 98.9 Assessment & Plan CKD III/ Iv - [facility] been seen [facility] - no records avail. : Current FLuid and E-lyte status does not necessitate emergent need for Dialysis. Will re- evaluate for Dialysis in am and continue on [ ] schedule. hypoNatremia - suspect due to CHF Exac. If not better with lasix gtt then he mauy need Vaprisol Hypokalmeia - repalce PO CHF/ edema - lasix gtt and Ionotropes as ordered Anemia- check Iron Possible UTI - await cx Labs Labs Laboratory Tests Test 02/08/17 09:14 02/08/17 09:16 02/08/17 10:20 02/08/17 17:20 Magnesium Level 2.0 mg/dL (1.8-2.4) White Blood Count 12.4 x10^3/uL (4.0-11.0) Red Blood Count 3.98 x10^6/uL (4.30-5.70) Hemoglobin 11.1 g/dL (13.0-17.5) Hematocrit 33.8 % (39.0-53.0) Mean Corpuscular Volume 85 fL (79-100) Mean Corpuscular Hemoglobin 28 pg (25-35) Mean Corpuscular Hemoglobin Concent 33 g/dL (31-37) Red Cell Distribution Width 15.1 % (11.5-14.5) Platelet Count 348 x10^3/uL (140-400) Neutrophils (%) (Auto) 74 % (31-73) Lymphocytes (%) (Auto) 10 % (24-48) Monocytes (%) (Auto) 11 % (0-9) Eosinophils (%) (Auto) 5 % (0-3) Basophils (%) (Auto) 1 % (0-3) Neutrophils # (Auto) 9.2 x10^3uL (1.8-7.7) Lymphocytes # (Auto) 1.2 x10^3/uL (1.0-4.8) Monocytes # (Auto) 1.3 x10^3/uL (0.0-1.1) Eosinophils # (Auto) 0.6 x10^3/uL (0.0-0.7) Basophils # (Auto) 0.1 x10^3/uL (0.0-0.2) Prothrombin Time 14.2 SEC (11.7-14.0) Prothromb Time International Ratio 1.2 (0.8-1.1) Sodium Level 127 mmol/L (136-145) Potassium Level 3.8 mmol/L (3.5-5.1) Chloride Level 86 mmol/L (98-107) Carbon Dioxide Level 26 mmol/L (21-32) Anion Gap 15 (6-14) Blood Urea Nitrogen 60 mg/dL (8-26) Creatinine 2.9 mg/dL (0.7-1.3) Estimated GFR (Cockcroft-Gault) 21.3 BUN/Creatinine Ratio 21 (6-20) Glucose Level 181 mg/dL (70-99) Calcium Level 9.0 mg/dL (8.5-10.1) Total Bilirubin 0.9 mg/dL (0.2-1.0) Aspartate Amino Transf (AST/SGOT) 35 U/L (15-37) Alanine Aminotransferase (ALT/SGPT) 24 U/L (16-63) Alkaline Phosphatase 68 U/L (46-116) Troponin I Quantitative 0.044 ng/mL (0.000-0.055) SB-Mxn-Q-Type Natriuretic Peptide 9315 pg/mL (0-449) Total Protein 7.4 g/dL (6.4-8.2) Albumin 3.2 g/dL (3.4-5.0) Albumin/Globulin Ratio 0.8 (1.0-1.7) Urine Collection Type Unknown Urine Color Yellow Urine Clarity Cloudy Urine pH 6.0 Urine Specific [place] 1.010 Urine Protein Negative mg/dL (NEG-TRACE) Urine Glucose (UA) Negative mg/dL (NEG) Urine Ketones (Stick) Negative mg/dL (NEG) Urine Blood Negative (NEG) Urine Nitrite Negative (NEG) Urine Bilirubin Negative (NEG) Urine Urobilinogen Dipstick 0.2 mg/dL (0.2 mg/dL) Urine Leukocyte Esterase Large (NEG) Urine RBC 0 /HPF (0-2) Urine WBC >40 /HPF (0-4) Urine Squamous Epithelial Cells Few /LPF Urine Bacteria Few /HPF (0-FEW) Urine Hyaline Casts Few /HPF Glucose (Fingerstick) 174 mg/dL (70-99) Test 02/08/17 20:54 02/09/17 06:40 02/09/17 08:13 Glucose (Fingerstick) 72 mg/dL (70-99) 89 mg/dL (70-99) White Blood Count 10.2 x10^3/uL (4.0-11.0) Red Blood Count 3.83 x10^6/uL (4.30-5.70) Hemoglobin 10.9 g/dL (13.0-17.5) Hematocrit 32.4 % (39.0-53.0) Mean Corpuscular Volume 84 fL (79-100) Mean Corpuscular Hemoglobin 28 pg (25-35) Mean Corpuscular Hemoglobin Concent 34 g/dL (31-37) Red Cell Distribution Width 15.0 % (11.5-14.5) Platelet Count 335 x10^3/uL (140-400) Neutrophils (%) (Auto) 65 % (31-73) Lymphocytes (%) (Auto) 13 % (24-48) Monocytes (%) (Auto) 12 % (0-9) Eosinophils (%) (Auto) 10 % (0-3) Basophils (%) (Auto) 1 % (0-3) Neutrophils # (Auto) 6.6 x10^3uL (1.8-7.7) Lymphocytes # (Auto) 1.4 x10^3/uL (1.0-4.8) Monocytes # (Auto) 1.2 x10^3/uL (0.0-1.1) Eosinophils # (Auto) 1.0 x10^3/uL (0.0-0.7) Basophils # (Auto) 0.1 x10^3/uL (0.0-0.2) Sodium Level 127 mmol/L (136-145) Potassium Level 2.9 mmol/L (3.5-5.1) Chloride Level 87 mmol/L (98-107) Carbon Dioxide Level 27 mmol/L (21-32) Anion Gap 13 (6-14) Blood Urea Nitrogen 65 mg/dL (8-26) Creatinine 2.6 mg/dL (0.7-1.3) Estimated GFR (Cockcroft-Gault) 24.2 Glucose Level 87 mg/dL (70-99) Calcium Level 9.3 mg/dL (8.5-10.1) Laboratory Tests Test 02/08/17 17:20 02/08/17 20:54 02/09/17 06:40 02/09/17 08:13 Glucose (Fingerstick) 174 mg/dL (70-99) 72 mg/dL (70-99) 89 mg/dL (70-99) White Blood Count 10.2 x10^3/uL (4.0-11.0) Red Blood Count 3.83 x10^6/uL (4.30-5.70) Hemoglobin 10.9 g/dL (13.0-17.5) Hematocrit 32.4 % (39.0-53.0) Mean Corpuscular Volume 84 fL (79-100) Mean Corpuscular Hemoglobin 28 pg (25-35) Mean Corpuscular Hemoglobin Concent 34 g/dL (31-37) Red Cell Distribution Width 15.0 % (11.5-14.5) Platelet Count 335 x10^3/uL (140-400) Neutrophils (%) (Auto) 65 % (31-73) Lymphocytes (%) (Auto) 13 % (24-48) Monocytes (%) (Auto) 12 % (0-9) Eosinophils (%) (Auto) 10 % (0-3) Basophils (%) (Auto) 1 % (0-3) Neutrophils # (Auto) 6.6 x10^3uL (1.8-7.7) Lymphocytes # (Auto) 1.4 x10^3/uL (1.0-4.8) Monocytes # (Auto) 1.2 x10^3/uL (0.0-1.1) Eosinophils # (Auto) 1.0 x10^3/uL (0.0-0.7) Basophils # (Auto) 0.1 x10^3/uL (0.0-0.2) Sodium Level 127 mmol/L (136-145) Potassium Level 2.9 mmol/L (3.5-5.1) Chloride Level 87 mmol/L (98-107) Carbon Dioxide Level 27 mmol/L (21-32) Anion Gap 13 (6-14) Blood Urea Nitrogen 65 mg/dL (8-26) Creatinine 2.6 mg/dL (0.7-1.3) Estimated GFR (Cockcroft-Gault) 24.2 Glucose Level 87 mg/dL (70-99) Calcium Level 9.3 mg/dL (8.5-10.1) Images Images Technically difficult study. Left ventricle systolic function is severely impaired. The Ejection Fraction is 25%. The left atrium is moderately dilated. There is a pacemaker lead in the right atrium and right ventricle. Mild tricuspid regurgitation. The pulmonary artery systolic pressure is estimated at 33 mmHg. There is no evidence of significant pericardial effusion. AUGIE MONTELONGO MD Feb 09, 2017 11:07
--- NOTE | 2017-02-09 13:00 | PDOC ---
PROGRESS NOTES Subjective Subjective Patient feels better today. Good diuresis. Objective Objective Vital Signs Date Time Temp Pulse Resp B/P (MAP) Pulse Ox O2 Delivery O2 Flow Rate FiO2 02/09/17 11:43 Nasal Cannula 2.0 02/09/17 11:00 98.2 103 20 111/80 (90) 98.2 02/09/17 08:07 95 Intake and Output 02/10/17 07:00 Intake Total 240 ml Balance 240 ml Intake Oral 240 ml Physical Exam Physical Exam Lungs moving air better less rales no wheezing. Heart no changes. Extremities less edema. Assessment Assessment Acute CHF is improving. Would continue with the Lasix drip and dobutamine drip for another 24 hours. Problems Medical Problems: (1) CHF (congestive heart failure) Status: Acute Comment Review of Relevant I have reviewed the following items sukumar (where applicable) has been applied. Labs Laboratory Tests Test 02/08/17 09:14 02/08/17 09:16 02/08/17 10:20 02/08/17 17:20 Magnesium Level 2.0 mg/dL (1.8-2.4) White Blood Count 12.4 x10^3/uL (4.0-11.0) Red Blood Count 3.98 x10^6/uL (4.30-5.70) Hemoglobin 11.1 g/dL (13.0-17.5) Hematocrit 33.8 % (39.0-53.0) Mean Corpuscular Volume 85 fL (79-100) Mean Corpuscular Hemoglobin 28 pg (25-35) Mean Corpuscular Hemoglobin Concent 33 g/dL (31-37) Red Cell Distribution Width 15.1 % (11.5-14.5) Platelet Count 348 x10^3/uL (140-400) Neutrophils (%) (Auto) 74 % (31-73) Lymphocytes (%) (Auto) 10 % (24-48) Monocytes (%) (Auto) 11 % (0-9) Eosinophils (%) (Auto) 5 % (0-3) Basophils (%) (Auto) 1 % (0-3) Neutrophils # (Auto) 9.2 x10^3uL (1.8-7.7) Lymphocytes # (Auto) 1.2 x10^3/uL (1.0-4.8) Monocytes # (Auto) 1.3 x10^3/uL (0.0-1.1) Eosinophils # (Auto) 0.6 x10^3/uL (0.0-0.7) Basophils # (Auto) 0.1 x10^3/uL (0.0-0.2) Prothrombin Time 14.2 SEC (11.7-14.0) Prothromb Time International Ratio 1.2 (0.8-1.1) Sodium Level 127 mmol/L (136-145) Potassium Level 3.8 mmol/L (3.5-5.1) Chloride Level 86 mmol/L (98-107) Carbon Dioxide Level 26 mmol/L (21-32) Anion Gap 15 (6-14) Blood Urea Nitrogen 60 mg/dL (8-26) Creatinine 2.9 mg/dL (0.7-1.3) Estimated GFR (Cockcroft-Gault) 21.3 BUN/Creatinine Ratio 21 (6-20) Glucose Level 181 mg/dL (70-99) Calcium Level 9.0 mg/dL (8.5-10.1) Total Bilirubin 0.9 mg/dL (0.2-1.0) Aspartate Amino Transf (AST/SGOT) 35 U/L (15-37) Alanine Aminotransferase (ALT/SGPT) 24 U/L (16-63) Alkaline Phosphatase 68 U/L (46-116) Troponin I Quantitative 0.044 ng/mL (0.000-0.055) LX-Vgx-Y-Type Natriuretic Peptide 9315 pg/mL (0-449) Total Protein 7.4 g/dL (6.4-8.2) Albumin 3.2 g/dL (3.4-5.0) Albumin/Globulin Ratio 0.8 (1.0-1.7) Urine Collection Type Unknown Urine Color Yellow Urine Clarity Cloudy Urine pH 6.0 Urine Specific [place] 1.010 Urine Protein Negative mg/dL (NEG-TRACE) Urine Glucose (UA) Negative mg/dL (NEG) Urine Ketones (Stick) Negative mg/dL (NEG) Urine Blood Negative (NEG) Urine Nitrite Negative (NEG) Urine Bilirubin Negative (NEG) Urine Urobilinogen Dipstick 0.2 mg/dL (0.2 mg/dL) Urine Leukocyte Esterase Large (NEG) Urine RBC 0 /HPF (0-2) Urine WBC >40 /HPF (0-4) Urine Squamous Epithelial Cells Few /LPF Urine Bacteria Few /HPF (0-FEW) Urine Hyaline Casts Few /HPF Glucose (Fingerstick) 174 mg/dL (70-99) Test 02/08/17 20:54 02/09/17 06:40 02/09/17 08:13 02/09/17 11:30 Glucose (Fingerstick) 72 mg/dL (70-99) 89 mg/dL (70-99) White Blood Count 10.2 x10^3/uL (4.0-11.0) Red Blood Count 3.83 x10^6/uL (4.30-5.70) Hemoglobin 10.9 g/dL (13.0-17.5) Hematocrit 32.4 % (39.0-53.0) Mean Corpuscular Volume 84 fL (79-100) Mean Corpuscular Hemoglobin 28 pg (25-35) Mean Corpuscular Hemoglobin Concent 34 g/dL (31-37) Red Cell Distribution Width 15.0 % (11.5-14.5) Platelet Count 335 x10^3/uL (140-400) Neutrophils (%) (Auto) 65 % (31-73) Lymphocytes (%) (Auto) 13 % (24-48) Monocytes (%) (Auto) 12 % (0-9) Eosinophils (%) (Auto) 10 % (0-3) Basophils (%) (Auto) 1 % (0-3) Neutrophils # (Auto) 6.6 x10^3uL (1.8-7.7) Lymphocytes # (Auto) 1.4 x10^3/uL (1.0-4.8) Monocytes # (Auto) 1.2 x10^3/uL (0.0-1.1) Eosinophils # (Auto) 1.0 x10^3/uL (0.0-0.7) Basophils # (Auto) 0.1 x10^3/uL (0.0-0.2) Sodium Level 127 mmol/L (136-145) Potassium Level 2.9 mmol/L (3.5-5.1) 3.3 mmol/L (3.5-5.1) Chloride Level 87 mmol/L (98-107) Carbon Dioxide Level 27 mmol/L (21-32) Anion Gap 13 (6-14) Blood Urea Nitrogen 65 mg/dL (8-26) Creatinine 2.6 mg/dL (0.7-1.3) Estimated GFR (Cockcroft-Gault) 24.2 Glucose Level 87 mg/dL (70-99) Calcium Level 9.3 mg/dL (8.5-10.1) Magnesium Level 2.3 mg/dL (1.8-2.4) Test 02/09/17 11:51 Glucose (Fingerstick) 251 mg/dL (70-99) Laboratory Tests Test 02/08/17 17:20 02/08/17 20:54 02/09/17 06:40 02/09/17 08:13 Glucose (Fingerstick) 174 mg/dL (70-99) 72 mg/dL (70-99) 89 mg/dL (70-99) White Blood Count 10.2 x10^3/uL (4.0-11.0) Red Blood Count 3.83 x10^6/uL (4.30-5.70) Hemoglobin 10.9 g/dL (13.0-17.5) Hematocrit 32.4 % (39.0-53.0) Mean Corpuscular Volume 84 fL (79-100) Mean Corpuscular Hemoglobin 28 pg (25-35) Mean Corpuscular Hemoglobin Concent 34 g/dL (31-37) Red Cell Distribution Width 15.0 % (11.5-14.5) Platelet Count 335 x10^3/uL (140-400) Neutrophils (%) (Auto) 65 % (31-73) Lymphocytes (%) (Auto) 13 % (24-48) Monocytes (%) (Auto) 12 % (0-9) Eosinophils (%) (Auto) 10 % (0-3) Basophils (%) (Auto) 1 % (0-3) Neutrophils # (Auto) 6.6 x10^3uL (1.8-7.7) Lymphocytes # (Auto) 1.4 x10^3/uL (1.0-4.8) Monocytes # (Auto) 1.2 x10^3/uL (0.0-1.1) Eosinophils # (Auto) 1.0 x10^3/uL (0.0-0.7) Basophils # (Auto) 0.1 x10^3/uL (0.0-0.2) Sodium Level 127 mmol/L (136-145) Potassium Level 2.9 mmol/L (3.5-5.1) Chloride Level 87 mmol/L (98-107) Carbon Dioxide Level 27 mmol/L (21-32) Anion Gap 13 (6-14) Blood Urea Nitrogen 65 mg/dL (8-26) Creatinine 2.6 mg/dL (0.7-1.3) Estimated GFR (Cockcroft-Gault) 24.2 Glucose Level 87 mg/dL (70-99) Calcium Level 9.3 mg/dL (8.5-10.1) Test 02/09/17 11:30 02/09/17 11:51 Potassium Level 3.3 mmol/L (3.5-5.1) Magnesium Level 2.3 mg/dL (1.8-2.4) Glucose (Fingerstick) 251 mg/dL (70-99) Medications Current Medications Albuterol/ Ipratropium (Duoneb) 3 ml 1X ONCE NEB Last administered on 10:25; Start 02/08/17 at 09:30; Stop 02/08/17 at 09:38; Status DC Nitroglycerin (Nitro-Bid Oint) 1 inch 1X ONCE TP Last administered on 09:45; Start 02/08/17 at 09:30; Stop 02/08/17 at 09:38; Status DC Furosemide (Lasix) 40 mg 1X ONCE IVP Last administered on 02/08/17 09:45; Start 02/08/17 at 09:30; Stop 02/08/17 at 09:38; Status DC Ondansetron HCl (Zofran) 4 mg PRN Q8HRS PRN IV NAUSEA/VOMITING; Start at 11:30; Stop 02/09/17 at 11:29; Status DC Furosemide 100 mg/ Sodium Chloride 100 ml @ 0 mls/hr CONT PRN IV PER PROTOCOL Last administered on 02/09/17 08:38; Start 02/08/17 at 11:30 Aspirin (Bhavya Aspirin) 325 mg DAILY PO Last administered on 02/09/17 08:42; Start 02/09/17 at 09:00 Vitamin D (Vitamin D3) 1,000 unit DAILY PO Last administered on 02/09/17 08: 42; Start 02/09/17 at 09:00 Clopidogrel Bisulfate (Plavix) 75 mg DAILY PO Last administered on 02/09/17 08:42; Start 02/09/17 at 09:00 Metolazone (Zaroxolyn) 2.5 mg DAILY PO ; Start 02/09/17 at 09:00; Stop at 09:00; Status DC Spironolactone (Aldactone) 25 mg DAILY PO ; Start 02/09/17 at 09:00 Tamsulosin HCl (Flomax) 0.4 mg DAILY PO Last administered on 02/09/17 08:41; Start 02/09/17 at 09:00 Trazodone HCl (Desyrel) 100 mg HS PO Last administered on 02/08/17 20:57; Start 02/08/17 at 21:00 Non-Formulary Medication 1 tab DAILY PO ; Start 02/09/17 at 09:00; Stop at 09:00; Status DC Glipizide (Glucotrol) 10 mg BIDBFRMEAL PO ; Start 02/09/17 at 17:00 Insulin Aspart (NovoLOG) 20 units TIDAC SQ Last administered on 02/09/17 12: 26; Start 02/08/17 at 16:30 Insulin Detemir (Levemir) 60 units QHS SQ ; Start 02/08/17 at 21:00 Multivitamins (Thera M Plus) 1 tab DAILY PO Last administered on 02/09/17 08: 41; Start 02/09/17 at 09:00 Acetaminophen (Tylenol) 650 mg PRN Q6HRS PRN PO FEVER; Start 02/08/17 at 16:30 Ondansetron HCl (Zofran) 4 mg PRN Q6HRS PRN IV NAUSEA/VOMITING; Start at 16:30 Morphine Sulfate 2 mg PRN Q2HR PRN IV PAIN; Start 02/08/17 at 16:30 Tramadol HCl (Ultram) 50 mg PRN Q6HRS PRN PO PAIN Last administered on 21:45; Start 02/08/17 at 16:30 Hydralazine HCl (Apresoline Inj) 10 mg PRN Q4HRS PRN IVP ELEVATED BP, SEE COMMENTS; Start 02/08/17 at 16:30 Docusate Sodium (Colace) 100 mg PRN DAILY PRN PO CONSTIPATION; Start 02/08/17 at 16:30 Insulin Aspart (NovoLOG) 0-9 UNITS TIDWMEALS SQ Last administered on 12:26; Start 02/08/17 at 17:00 Dextrose (Dextrose 50%-Water Syringe) 12.5 gm PRN Q15MIN PRN IV SEE COMMENTS; Start 02/08/17 at 16:30 Albuterol Sulfate (Ventolin Neb Soln) 2.5 mg PRN Q4HRS PRN NEB SHORTNESS OF BREATH; Start 02/08/17 at 16:30 Albuterol/ Ipratropium (Duoneb) 3 ml RTQID NEB Last administered on 02/09/17 11:43; Start 02/08/17 at 17:00 Heparin Sodium (Porcine) (Heparin Sq) 5,000 unit Q8HRS SQ Last administered on 02/09/17 06:01; Start 02/08/17 at 22:00 Alprazolam (Xanax) 0.25 mg PRN BID PRN PO ANXIETY / AGITATION Last administered on 02/08/17 17:52; Start 02/08/17 at 17:15; Stop 02/08/17 at 19 :44; Status DC Ceftriaxone Sodium 50 ml @ 100 mls/hr DAILY IV ; Start 02/09/17 at 09:00; Status UNV Alprazolam (Xanax) 0.5 mg PRN Q6HRS PRN PO ANXIETY / AGITATION Last administered on 02/09/17 08:43; Start 02/08/17 at 19:45; Stop 02/09/17 at 10 :55; Status DC Ceftriaxone Sodium (Rocephin) 1 gm Q24H IVP Last administered on 02/08/17 20: 30; Start 02/08/17 at 20:00 Potassium Chloride (Klor-Con) 40 meq 1X ONCE PO Last administered on 08:43; Start 02/09/17 at 08:15; Stop 02/09/17 at 08:16; Status DC Potassium Chloride (Klor-Con) 40 meq 1X ONCE PO Last administered on t 12:23; Start 02/09/17 at 12:00; Stop 02/09/17 at 12:01; Status DC Dobutamine HCl/ Dextrose 250 ml @ 0 mls/hr CONT PRN IV SEE I/O RECORD Last administered on 02/09/17 08:40; Start 02/09/17 at 08:15 Alprazolam (Xanax) 0.25 mg PRN Q6HRS PRN PO ANXIETY / AGITATION; Start at 11:00 Potassium Chloride (Klor-Con) 40 meq PRN Q4HRS PRN PO for K < 4.0 ; Start at 11:15 Active Scripts Active Novolog (Insulin Aspart) 100 Unit/1 Ml Cartridge 25 Unit SQ TID 30 Days Metolazone 2.5 Mg Tablet 2.5 Mg PO DAILY Flomax (Tamsulosin Hcl) 0.4 Mg Cap.er.24h 0.4 Mg PO DAILY Reported Trazodone Hcl 100 Mg Tablet 100 Mg PO HS Glipizide 10 Mg Tablet 1 Tab PO BID Spironolactone 25 Mg Tablet 1 Tab PO DAILY Multi-Day Vitamins (Multivitamin) 1 Each Tablet 1 Tab PO DAILY Vitamin D3 (Cholecalciferol (Vitamin D3)) 1,000 Unit Tablet 1 Tab PO DAILY Aspirin 325 Mg Tablet 1 Tab PO DAILY Bumetanide 2 Mg Tablet 1 Tab PO DAILY Lantus Solostar (Insulin Glargine,Hum.rec.anlog) 100 Unit/1 Ml Insuln.pen 75 Unit SQ QHS Clopidogrel (Clopidogrel Bisulfate) 75 Mg Tablet 1 Tab PO DAILY Vitals/I & O Vital Sign - Last 24 Hours 02/08/17 02/08/17 02/08/17 02/08/17 15:00 19:00 19:17 19:46 Temp 97.9 97.5 97.9 97.5 Pulse 91 101 Resp 20 20 B/P (MAP) 129/52 (77) 96/55 (69) Pulse Ox 97 99 93 O2 Delivery Nasal Cannula Nasal Cannula Nasal Cannula O2 Flow Rate 2.0 2.0 2.0 2.0 02/08/17 02/08/17 02/08/17 02/09/17 21:45 22:50 22:51 02:54 Temp 98.2 98.0 98.2 98.0 Pulse 94 81 Resp 18 18 18 20 B/P (MAP) 93/57 (69) 114/56 (75) Pulse Ox 94 96 96 O2 Delivery Nasal Cannula Nasal Cannula Nasal Cannula Nasal Cannula O2 Flow Rate 2.0 2.0 2.0 2.0 02/09/17 02/09/17 02/09/17 02/09/17 06:16 08:00 08:07 11:00 Temp 98.9 98.2 98.9 98.2 Pulse 80 103 Resp 18 20 B/P (MAP) 97/64 (75) 111/80 (90) Pulse Ox 96 95 O2 Delivery Nasal Cannula Nasal Cannula Nasal Cannula Nasal Cannula O2 Flow Rate 2.0 2.0 2.0 2.0 02/09/17 11:43 O2 Delivery Nasal Cannula O2 Flow Rate 2.0 Intake and Output 02/09/17 02/09/17 02/10/17 15:00 23:00 07:00 Intake Total 240 ml Balance 240 ml OKSANA JOSEPH MD Feb 09, 2017 13:00
--- NOTE | 2017-02-09 13:21 | PDOC ---
PROGRESS NOTES Chief Complaint Chief Complaint acute hypoxia, resp failure from acute CHF acute on chronic systolic CHF exacerbation , last known EF 25% COPD, chroinc hypercarbia DM2 ON insulin htn h/o CAD with CABG anxiety d/o NOS liliane on CKD 3-4 mild malnutrition, in morbid obesity, BMI 40.5 hyponatremia with CHF History of Present Illness History of Present Illness replace K+, marked decrease following w. Dr. Ibarra, , on lasix drip and dobutamine cont insulin to levemir 6 cont home meds, hold po diuretics till ok with card dvt ppx albuterol, duoneb daily weight in and out Vitals Vitals Vital Signs Date Time Temp Pulse Resp B/P (MAP) Pulse Ox O2 Delivery O2 Flow Rate FiO2 02/09/17 11:43 Nasal Cannula 2.0 02/09/17 11:00 98.2 103 20 111/80 (90) 98.2 02/09/17 08:07 95 Physical Exam General: Alert, Oriented X3, Cooperative, mild distress Heart: Regular rate, Other (S1-S2 positive S3.) Lungs: Clear, Other Abdomen: Normal bowel sounds, Soft Extremities: No clubbing, Other (2-3+ pitting edema of both lower extremities) Skin: No rashes Labs LABS Laboratory Tests Test 02/08/17 17:20 02/08/17 20:54 02/09/17 06:40 02/09/17 08:13 Glucose (Fingerstick) 174 mg/dL (70-99) 72 mg/dL (70-99) 89 mg/dL (70-99) White Blood Count 10.2 x10^3/uL (4.0-11.0) Red Blood Count 3.83 x10^6/uL (4.30-5.70) Hemoglobin 10.9 g/dL (13.0-17.5) Hematocrit 32.4 % (39.0-53.0) Mean Corpuscular Volume 84 fL (79-100) Mean Corpuscular Hemoglobin 28 pg (25-35) Mean Corpuscular Hemoglobin Concent 34 g/dL (31-37) Red Cell Distribution Width 15.0 % (11.5-14.5) Platelet Count 335 x10^3/uL (140-400) Neutrophils (%) (Auto) 65 % (31-73) Lymphocytes (%) (Auto) 13 % (24-48) Monocytes (%) (Auto) 12 % (0-9) Eosinophils (%) (Auto) 10 % (0-3) Basophils (%) (Auto) 1 % (0-3) Neutrophils # (Auto) 6.6 x10^3uL (1.8-7.7) Lymphocytes # (Auto) 1.4 x10^3/uL (1.0-4.8) Monocytes # (Auto) 1.2 x10^3/uL (0.0-1.1) Eosinophils # (Auto) 1.0 x10^3/uL (0.0-0.7) Basophils # (Auto) 0.1 x10^3/uL (0.0-0.2) Sodium Level 127 mmol/L (136-145) Potassium Level 2.9 mmol/L (3.5-5.1) Chloride Level 87 mmol/L (98-107) Carbon Dioxide Level 27 mmol/L (21-32) Anion Gap 13 (6-14) Blood Urea Nitrogen 65 mg/dL (8-26) Creatinine 2.6 mg/dL (0.7-1.3) Estimated GFR (Cockcroft-Gault) 24.2 Glucose Level 87 mg/dL (70-99) Calcium Level 9.3 mg/dL (8.5-10.1) Test 02/09/17 11:30 02/09/17 11:51 Potassium Level 3.3 mmol/L (3.5-5.1) Magnesium Level 2.3 mg/dL (1.8-2.4) Glucose (Fingerstick) 251 mg/dL (70-99) Review of Systems Review of Systems anxiety earlier, given xanax, now a little too sleepy, Assessment and Plan Assessmemt and Plan Problems Medical Problems: (1) CHF (congestive heart failure) Status: Acute Problems: Comment Review of Relevant I have reviewed the following items sukumar (where applicable) has been applied. Labs Laboratory Tests Test 02/08/17 09:14 02/08/17 09:16 02/08/17 10:20 02/08/17 17:20 Magnesium Level 2.0 mg/dL (1.8-2.4) White Blood Count 12.4 x10^3/uL (4.0-11.0) Red Blood Count 3.98 x10^6/uL (4.30-5.70) Hemoglobin 11.1 g/dL (13.0-17.5) Hematocrit 33.8 % (39.0-53.0) Mean Corpuscular Volume 85 fL (79-100) Mean Corpuscular Hemoglobin 28 pg (25-35) Mean Corpuscular Hemoglobin Concent 33 g/dL (31-37) Red Cell Distribution Width 15.1 % (11.5-14.5) Platelet Count 348 x10^3/uL (140-400) Neutrophils (%) (Auto) 74 % (31-73) Lymphocytes (%) (Auto) 10 % (24-48) Monocytes (%) (Auto) 11 % (0-9) Eosinophils (%) (Auto) 5 % (0-3) Basophils (%) (Auto) 1 % (0-3) Neutrophils # (Auto) 9.2 x10^3uL (1.8-7.7) Lymphocytes # (Auto) 1.2 x10^3/uL (1.0-4.8) Monocytes # (Auto) 1.3 x10^3/uL (0.0-1.1) Eosinophils # (Auto) 0.6 x10^3/uL (0.0-0.7) Basophils # (Auto) 0.1 x10^3/uL (0.0-0.2) Prothrombin Time 14.2 SEC (11.7-14.0) Prothromb Time International Ratio 1.2 (0.8-1.1) Sodium Level 127 mmol/L (136-145) Potassium Level 3.8 mmol/L (3.5-5.1) Chloride Level 86 mmol/L (98-107) Carbon Dioxide Level 26 mmol/L (21-32) Anion Gap 15 (6-14) Blood Urea Nitrogen 60 mg/dL (8-26) Creatinine 2.9 mg/dL (0.7-1.3) Estimated GFR (Cockcroft-Gault) 21.3 BUN/Creatinine Ratio 21 (6-20) Glucose Level 181 mg/dL (70-99) Calcium Level 9.0 mg/dL (8.5-10.1) Total Bilirubin 0.9 mg/dL (0.2-1.0) Aspartate Amino Transf (AST/SGOT) 35 U/L (15-37) Alanine Aminotransferase (ALT/SGPT) 24 U/L (16-63) Alkaline Phosphatase 68 U/L (46-116) Troponin I Quantitative 0.044 ng/mL (0.000-0.055) EK-Bot-C-Type Natriuretic Peptide 9315 pg/mL (0-449) Total Protein 7.4 g/dL (6.4-8.2) Albumin 3.2 g/dL (3.4-5.0) Albumin/Globulin Ratio 0.8 (1.0-1.7) Urine Collection Type Unknown Urine Color Yellow Urine Clarity Cloudy Urine pH 6.0 Urine Specific Starbuck 1.010 Urine Protein Negative mg/dL (NEG-TRACE) Urine Glucose (UA) Negative mg/dL (NEG) Urine Ketones (Stick) Negative mg/dL (NEG) Urine Blood Negative (NEG) Urine Nitrite Negative (NEG) Urine Bilirubin Negative (NEG) Urine Urobilinogen Dipstick 0.2 mg/dL (0.2 mg/dL) Urine Leukocyte Esterase Large (NEG) Urine RBC 0 /HPF (0-2) Urine WBC >40 /HPF (0-4) Urine Squamous Epithelial Cells Few /LPF Urine Bacteria Few /HPF (0-FEW) Urine Hyaline Casts Few /HPF Glucose (Fingerstick) 174 mg/dL (70-99) Test 02/08/17 20:54 02/09/17 06:40 02/09/17 08:13 02/09/17 11:30 Glucose (Fingerstick) 72 mg/dL (70-99) 89 mg/dL (70-99) White Blood Count 10.2 x10^3/uL (4.0-11.0) Red Blood Count 3.83 x10^6/uL (4.30-5.70) Hemoglobin 10.9 g/dL (13.0-17.5) Hematocrit 32.4 % (39.0-53.0) Mean Corpuscular Volume 84 fL (79-100) Mean Corpuscular Hemoglobin 28 pg (25-35) Mean Corpuscular Hemoglobin Concent 34 g/dL (31-37) Red Cell Distribution Width 15.0 % (11.5-14.5) Platelet Count 335 x10^3/uL (140-400) Neutrophils (%) (Auto) 65 % (31-73) Lymphocytes (%) (Auto) 13 % (24-48) Monocytes (%) (Auto) 12 % (0-9) Eosinophils (%) (Auto) 10 % (0-3) Basophils (%) (Auto) 1 % (0-3) Neutrophils # (Auto) 6.6 x10^3uL (1.8-7.7) Lymphocytes # (Auto) 1.4 x10^3/uL (1.0-4.8) Monocytes # (Auto) 1.2 x10^3/uL (0.0-1.1) Eosinophils # (Auto) 1.0 x10^3/uL (0.0-0.7) Basophils # (Auto) 0.1 x10^3/uL (0.0-0.2) Sodium Level 127 mmol/L (136-145) Potassium Level 2.9 mmol/L (3.5-5.1) 3.3 mmol/L (3.5-5.1) Chloride Level 87 mmol/L (98-107) Carbon Dioxide Level 27 mmol/L (21-32) Anion Gap 13 (6-14) Blood Urea Nitrogen 65 mg/dL (8-26) Creatinine 2.6 mg/dL (0.7-1.3) Estimated GFR (Cockcroft-Gault) 24.2 Glucose Level 87 mg/dL (70-99) Calcium Level 9.3 mg/dL (8.5-10.1) Magnesium Level 2.3 mg/dL (1.8-2.4) Test 02/09/17 11:51 Glucose (Fingerstick) 251 mg/dL (70-99) Laboratory Tests Test 02/08/17 17:20 02/08/17 20:54 02/09/17 06:40 02/09/17 08:13 Glucose (Fingerstick) 174 mg/dL (70-99) 72 mg/dL (70-99) 89 mg/dL (70-99) White Blood Count 10.2 x10^3/uL (4.0-11.0) Red Blood Count 3.83 x10^6/uL (4.30-5.70) Hemoglobin 10.9 g/dL (13.0-17.5) Hematocrit 32.4 % (39.0-53.0) Mean Corpuscular Volume 84 fL (79-100) Mean Corpuscular Hemoglobin 28 pg (25-35) Mean Corpuscular Hemoglobin Concent 34 g/dL (31-37) Red Cell Distribution Width 15.0 % (11.5-14.5) Platelet Count 335 x10^3/uL (140-400) Neutrophils (%) (Auto) 65 % (31-73) Lymphocytes (%) (Auto) 13 % (24-48) Monocytes (%) (Auto) 12 % (0-9) Eosinophils (%) (Auto) 10 % (0-3) Basophils (%) (Auto) 1 % (0-3) Neutrophils # (Auto) 6.6 x10^3uL (1.8-7.7) Lymphocytes # (Auto) 1.4 x10^3/uL (1.0-4.8) Monocytes # (Auto) 1.2 x10^3/uL (0.0-1.1) Eosinophils # (Auto) 1.0 x10^3/uL (0.0-0.7) Basophils # (Auto) 0.1 x10^3/uL (0.0-0.2) Sodium Level 127 mmol/L (136-145) Potassium Level 2.9 mmol/L (3.5-5.1) Chloride Level 87 mmol/L (98-107) Carbon Dioxide Level 27 mmol/L (21-32) Anion Gap 13 (6-14) Blood Urea Nitrogen 65 mg/dL (8-26) Creatinine 2.6 mg/dL (0.7-1.3) Estimated GFR (Cockcroft-Gault) 24.2 Glucose Level 87 mg/dL (70-99) Calcium Level 9.3 mg/dL (8.5-10.1) Test 02/09/17 11:30 02/09/17 11:51 Potassium Level 3.3 mmol/L (3.5-5.1) Magnesium Level 2.3 mg/dL (1.8-2.4) Glucose (Fingerstick) 251 mg/dL (70-99) Microbiology 02/08/17 Urine Culture - Preliminary, Resulted 02/08/17 Urine Culture Result 1 (RIANNA) - Preliminary, Resulted Medications Current Medications Albuterol/ Ipratropium (Duoneb) 3 ml 1X ONCE NEB Last administered on 10:25; Start 02/08/17 at 09:30; Stop 02/08/17 at 09:38; Status DC Nitroglycerin (Nitro-Bid Oint) 1 inch 1X ONCE TP Last administered on 09:45; Start 02/08/17 at 09:30; Stop 02/08/17 at 09:38; Status DC Furosemide (Lasix) 40 mg 1X ONCE IVP Last administered on 02/08/17 09:45; Start 02/08/17 at 09:30; Stop 02/08/17 at 09:38; Status DC Ondansetron HCl (Zofran) 4 mg PRN Q8HRS PRN IV NAUSEA/VOMITING; Start at 11:30; Stop 02/09/17 at 11:29; Status DC Furosemide 100 mg/ Sodium Chloride 100 ml @ 0 mls/hr CONT PRN IV PER PROTOCOL Last administered on 02/09/17 08:38; Start 02/08/17 at 11:30 Aspirin (Bhavya Aspirin) 325 mg DAILY PO Last administered on 02/09/17 08:42; Start 02/09/17 at 09:00 Vitamin D (Vitamin D3) 1,000 unit DAILY PO Last administered on 02/09/17 08: 42; Start 02/09/17 at 09:00 Clopidogrel Bisulfate (Plavix) 75 mg DAILY PO Last administered on 02/09/17 08:42; Start 02/09/17 at 09:00 Metolazone (Zaroxolyn) 2.5 mg DAILY PO ; Start 02/09/17 at 09:00; Stop at 09:00; Status DC Spironolactone (Aldactone) 25 mg DAILY PO ; Start 02/09/17 at 09:00 Tamsulosin HCl (Flomax) 0.4 mg DAILY PO Last administered on 02/09/17 08:41; Start 02/09/17 at 09:00 Trazodone HCl (Desyrel) 100 mg HS PO Last administered on 02/08/17 20:57; Start 02/08/17 at 21:00 Non-Formulary Medication 1 tab DAILY PO ; Start 02/09/17 at 09:00; Stop at 09:00; Status DC Glipizide (Glucotrol) 10 mg BIDBFRMEAL PO ; Start 02/09/17 at 17:00 Insulin Aspart (NovoLOG) 20 units TIDAC SQ Last administered on 02/09/17 12: 26; Start 02/08/17 at 16:30 Insulin Detemir (Levemir) 60 units QHS SQ ; Start 02/08/17 at 21:00 Multivitamins (Thera M Plus) 1 tab DAILY PO Last administered on 02/09/17 08: 41; Start 02/09/17 at 09:00 Acetaminophen (Tylenol) 650 mg PRN Q6HRS PRN PO FEVER; Start 02/08/17 at 16:30 Ondansetron HCl (Zofran) 4 mg PRN Q6HRS PRN IV NAUSEA/VOMITING; Start at 16:30 Morphine Sulfate 2 mg PRN Q2HR PRN IV PAIN; Start 02/08/17 at 16:30 Tramadol HCl (Ultram) 50 mg PRN Q6HRS PRN PO PAIN Last administered on 21:45; Start 02/08/17 at 16:30 Hydralazine HCl (Apresoline Inj) 10 mg PRN Q4HRS PRN IVP ELEVATED BP, SEE COMMENTS; Start 02/08/17 at 16:30 Docusate Sodium (Colace) 100 mg PRN DAILY PRN PO CONSTIPATION; Start 02/08/17 at 16:30 Insulin Aspart (NovoLOG) 0-9 UNITS TIDWMEALS SQ Last administered on 12:26; Start 02/08/17 at 17:00 Dextrose (Dextrose 50%-Water Syringe) 12.5 gm PRN Q15MIN PRN IV SEE COMMENTS; Start 02/08/17 at 16:30 Albuterol Sulfate (Ventolin Neb Soln) 2.5 mg PRN Q4HRS PRN NEB SHORTNESS OF BREATH; Start 02/08/17 at 16:30 Albuterol/ Ipratropium (Duoneb) 3 ml RTQID NEB Last administered on 02/09/17 11:43; Start 02/08/17 at 17:00 Heparin Sodium (Porcine) (Heparin Sq) 5,000 unit Q8HRS SQ Last administered on 02/09/17 06:01; Start 02/08/17 at 22:00 Alprazolam (Xanax) 0.25 mg PRN BID PRN PO ANXIETY / AGITATION Last administered on 02/08/17 17:52; Start 02/08/17 at 17:15; Stop 02/08/17 at 19 :44; Status DC Ceftriaxone Sodium 50 ml @ 100 mls/hr DAILY IV ; Start 02/09/17 at 09:00; Status UNV Alprazolam (Xanax) 0.5 mg PRN Q6HRS PRN PO ANXIETY / AGITATION Last administered on 02/09/17 08:43; Start 02/08/17 at 19:45; Stop 02/09/17 at 10 :55; Status DC Ceftriaxone Sodium (Rocephin) 1 gm Q24H IVP Last administered on 02/08/17 20: 30; Start 02/08/17 at 20:00 Potassium Chloride (Klor-Con) 40 meq 1X ONCE PO Last administered on 08:43; Start 02/09/17 at 08:15; Stop 02/09/17 at 08:16; Status DC Potassium Chloride (Klor-Con) 40 meq 1X ONCE PO Last administered on 12:23; Start 02/09/17 at 12:00; Stop 02/09/17 at 12:01; Status DC Dobutamine HCl/ Dextrose 250 ml @ 0 mls/hr CONT PRN IV SEE I/O RECORD Last administered on 02/09/17 08:40; Start 02/09/17 at 08:15 Alprazolam (Xanax) 0.25 mg PRN Q6HRS PRN PO ANXIETY / AGITATION; Start at 11:00 Potassium Chloride (Klor-Con) 40 meq PRN Q4HRS PRN PO for K < 4.0 ; Start at 11:15 Active Scripts Active Novolog (Insulin Aspart) 100 Unit/1 Ml Cartridge 25 Unit SQ TID 30 Days Metolazone 2.5 Mg Tablet 2.5 Mg PO DAILY Flomax (Tamsulosin Hcl) 0.4 Mg Cap.er.24h 0.4 Mg PO DAILY Reported Trazodone Hcl 100 Mg Tablet 100 Mg PO HS Glipizide 10 Mg Tablet 1 Tab PO BID Spironolactone 25 Mg Tablet 1 Tab PO DAILY Multi-Day Vitamins (Multivitamin) 1 Each Tablet 1 Tab PO DAILY Vitamin D3 (Cholecalciferol (Vitamin D3)) 1,000 Unit Tablet 1 Tab PO DAILY Aspirin 325 Mg Tablet 1 Tab PO DAILY Bumetanide 2 Mg Tablet 1 Tab PO DAILY Lantus Solostar (Insulin Glargine,Hum.rec.anlog) 100 Unit/1 Ml Insuln.pen 75 Unit SQ QHS Clopidogrel (Clopidogrel Bisulfate) 75 Mg Tablet 1 Tab PO DAILY Vitals/I & O Vital Sign - Last 24 Hours 02/08/17 02/08/17 02/08/17 02/08/17 15:00 19:00 19:17 19:46 Temp 97.9 97.5 97.9 97.5 Pulse 91 101 Resp 20 20 B/P (MAP) 129/52 (77) 96/55 (69) Pulse Ox 97 99 93 O2 Delivery Nasal Cannula Nasal Cannula Nasal Cannula O2 Flow Rate 2.0 2.0 2.0 2.0 02/08/17 02/08/17 02/08/17 02/09/17 21:45 22:50 22:51 02:54 Temp 98.2 98.0 98.2 98.0 Pulse 94 81 Resp 18 18 18 20 B/P (MAP) 93/57 (69) 114/56 (75) Pulse Ox 94 96 96 O2 Delivery Nasal Cannula Nasal Cannula Nasal Cannula Nasal Cannula O2 Flow Rate 2.0 2.0 2.0 2.0 02/09/17 02/09/17 02/09/17 02/09/17 06:16 08:00 08:07 11:00 Temp 98.9 98.2 98.9 98.2 Pulse 80 103 Resp 18 20 B/P (MAP) 97/64 (75) 111/80 (90) Pulse Ox 96 95 O2 Delivery Nasal Cannula Nasal Cannula Nasal Cannula Nasal Cannula O2 Flow Rate 2.0 2.0 2.0 2.0 02/09/17 11:43 O2 Delivery Nasal Cannula O2 Flow Rate 2.0 Intake and Output 02/08/17 02/08/17 02/09/17 15:00 23:00 07:00 Intake Total 320 ml 420 ml Output Total 1000 ml 600 ml 2200 ml Balance -1000 ml -280 ml -1780 ml VICENTE FLORES MD Feb 09, 2017 13:21
[2017-02-09] MEDS: glipiZIDE 5 MG TABLET PO SCH (17:25)
[2017-02-09] MEDS: POTASSIUM CHLORIDE 20 MEQ TABLET.ER. PO PRN ×2 (17:26→22:13)
--- NOTE | 2017-02-09 18:11 | CONS ---
DATE OF CONSULTATION: HISTORY OF PRESENT ILLNESS: The patient is a 76-year-old gentleman who gets his renal care out at the [facility]. He tells me that he was told that his kidneys are "holding their own." Again, he does not know precisely his GFR or his baseline creatinine. Based on labs available to me here, his creatinine has been 1.8-2.7 in the past. He remains at 2.6 currently. He is known to have systolic CHF. Sonogram from a year and a half ago was reviewed. He denies NSAID use. He presented with CHF exacerbation and has been evaluated by Dr. Ibarra, he is now on a Lasix drip and dobutamine. He is also felt to have a possible UTI. UA has been done, cultures are pending. For rest of the details, see electronic records. FAMILY HISTORY: No history of renal problems. AUGIE MONTELONGO MD DR: CHRISTIANE/thais JOB#: [id number] / [id number]
[2017-02-09] MEDS: cefTRIAXone IV Push 1 GM VIAL. IVP SCH (19:43)
[2017-02-09] MEDS: traZODone 100 MG TABLET. PO SCH (20:48)
[2017-02-09] MEDS: INSULIN DETEMIR 300 UNITS/3 ML INSULN.PEN. SQ SCH (20:50)
[2017-02-10] VITALS (8 sets, daily range): BP systolic 91–147; BP diastolic 44–68
[2017-02-10] MEDS: HEPARIN PF for SUB-Q USE 5,000 UNIT/0.5 ML VIAL. SQ SCH ×3 (06:04→21:27)
[2017-02-10] MEDS: IPRATRPIUM/ALBUTEROL 0.5/2.5MG 3 ML NEBU. NEB SCH ×4 (07:59→19:39)
[2017-02-10] MEDS: glipiZIDE 5 MG TABLET PO SCH ×2 (08:25→16:59)
[2017-02-10] MEDS: CLOPIDOGREL BISULFATE 75 MG TABLET PO SCH (08:25)
[2017-02-10] MEDS: MULTIVITAMIN with MINERAL TABLET. PO SCH (08:25)
[2017-02-10] MEDS: CHOLECALCIFEROL (VITAMIN D3) 1,000 UNIT TABLET PO SCH (08:26)
[2017-02-10] MEDS: ASPIRIN 325 MG TABLET PO SCH (08:26)
[2017-02-10] MEDS: DOCUSATE SODIUM 100 MG CAPSULE. PO PRN (08:26)
[2017-02-10] MEDS: TAMSULOSIN 0.4 MG CAP.ER.24H. PO SCH (08:26)
[2017-02-10] MEDS: INSULIN ASPART 300 UNITS/3 ML INSULN.PEN SQ SCH ×6 (08:33→17:04)
[2017-02-10 08:39] LABS: BASO # 0.1 x10^3/uL (0.0-0.2); BASO % 1 % (0-3); EOS % 5 % (0-3); HEMATOCRIT 29.7 % (39.0-53.0); HEMOGLOBIN 9.9 g/dL (13.0-17.5); LYMPH # 1.2 x10^3/uL (1.0-4.8); LYMPH % 12 % (24-48); MEAN CORPUSCULAR HEMOGLOBIN 28 pg (25-35); MEAN CORPUSCULAR HGB CONC 33 g/dL (31-37); MEAN CORPUSCULAR VOLUME 85 fL (79-100); MONO % 14 % (0-9); NEUT % 67 % (31-73); PLATELET COUNT 315 x10^3/uL (140-400); RED BLOOD COUNT 3.48 x10^6/uL (4.30-5.70)
[2017-02-10] MEDS: FUROSEMIDE INJ 100 MG in IV NORMAL SALINE 100ML 100 ML IV PRN (08:50)
[2017-02-10 08:52] LABS: CREATININE 2.8 mg/dL (0.7-1.3); GFR 22.2; POTASSIUM 4.4 mmol/L (3.5-5.1)
[2017-02-10] MEDS: ALPRAZolam 0.25 MG TABLET PO PRN ×3 (08:52→22:25)
--- NOTE | 2017-02-10 11:59 | PDOC ---
PROGRESS NOTES Subjective Subjective Patient has a decreasing diuresis. Feels tired and weak. Objective Objective Vital Signs Date Time Temp Pulse Resp B/P (MAP) Pulse Ox O2 Delivery O2 Flow Rate FiO2 02/10/17 11:45 Nasal Cannula 2.0 02/10/17 11:30 98.1 101 20 91/44 (60) 96 98.1 Intake and Output 02/11/17 07:00 Intake Total 200 ml Balance 200 ml Intake Oral 200 ml Physical Exam Physical Exam Lungs breath sounds decreased some rales. Heart no changes. Extremities there is still significant edema present. Assessment Assessment Patient's improvement in the CHF seems to be slowing down and I think that he is third spacing a lot of fluid into his legs therefore I would like to continue with the dobutamine drip and the Lasix drip and then start the patient on some albumin 25% to 100 mL now and repeat in 8 hours. Depending on the diuresis will then decide about further changes. Problems Medical Problems: (1) CHF (congestive heart failure) Status: Acute Comment Review of Relevant I have reviewed the following items sukumar (where applicable) has been applied. Labs Laboratory Tests Test 02/08/17 17:20 02/08/17 20:54 02/09/17 06:40 02/09/17 08:13 Glucose (Fingerstick) 174 mg/dL (70-99) 72 mg/dL (70-99) 89 mg/dL (70-99) White Blood Count 10.2 x10^3/uL (4.0-11.0) Red Blood Count 3.83 x10^6/uL (4.30-5.70) Hemoglobin 10.9 g/dL (13.0-17.5) Hematocrit 32.4 % (39.0-53.0) Mean Corpuscular Volume 84 fL (79-100) Mean Corpuscular Hemoglobin 28 pg (25-35) Mean Corpuscular Hemoglobin Concent 34 g/dL (31-37) Red Cell Distribution Width 15.0 % (11.5-14.5) Platelet Count 335 x10^3/uL (140-400) Neutrophils (%) (Auto) 65 % (31-73) Lymphocytes (%) (Auto) 13 % (24-48) Monocytes (%) (Auto) 12 % (0-9) Eosinophils (%) (Auto) 10 % (0-3) Basophils (%) (Auto) 1 % (0-3) Neutrophils # (Auto) 6.6 x10^3uL (1.8-7.7) Lymphocytes # (Auto) 1.4 x10^3/uL (1.0-4.8) Monocytes # (Auto) 1.2 x10^3/uL (0.0-1.1) Eosinophils # (Auto) 1.0 x10^3/uL (0.0-0.7) Basophils # (Auto) 0.1 x10^3/uL (0.0-0.2) Sodium Level 127 mmol/L (136-145) Potassium Level 2.9 mmol/L (3.5-5.1) Chloride Level 87 mmol/L (98-107) Carbon Dioxide Level 27 mmol/L (21-32) Anion Gap 13 (6-14) Blood Urea Nitrogen 65 mg/dL (8-26) Creatinine 2.6 mg/dL (0.7-1.3) Estimated GFR (Cockcroft-Gault) 24.2 Glucose Level 87 mg/dL (70-99) Calcium Level 9.3 mg/dL (8.5-10.1) Test 02/09/17 11:30 02/09/17 11:51 02/09/17 15:50 02/09/17 17:24 Potassium Level 3.3 mmol/L (3.5-5.1) 3.3 mmol/L (3.5-5.1) Magnesium Level 2.3 mg/dL (1.8-2.4) Glucose (Fingerstick) 251 mg/dL (70-99) 303 mg/dL (70-99) Test 02/09/17 20:30 02/09/17 20:44 02/10/17 00:05 02/10/17 03:00 Potassium Level 3.8 mmol/L (3.5-5.1) 4.0 mmol/L (3.5-5.1) 4.2 mmol/L (3.5-5.1) Glucose (Fingerstick) 329 mg/dL (70-99) Magnesium Level 2.3 mg/dL (1.8-2.4) Test 02/10/17 07:38 02/10/17 08:10 02/10/17 11:30 Glucose (Fingerstick) 225 mg/dL (70-99) 195 mg/dL (70-99) White Blood Count 10.0 x10^3/uL (4.0-11.0) Red Blood Count 3.48 x10^6/uL (4.30-5.70) Hemoglobin 9.9 g/dL (13.0-17.5) Hematocrit 29.7 % (39.0-53.0) Mean Corpuscular Volume 85 fL (79-100) Mean Corpuscular Hemoglobin 28 pg (25-35) Mean Corpuscular Hemoglobin Concent 33 g/dL (31-37) Red Cell Distribution Width 15.0 % (11.5-14.5) Platelet Count 315 x10^3/uL (140-400) Neutrophils (%) (Auto) 67 % (31-73) Lymphocytes (%) (Auto) 12 % (24-48) Monocytes (%) (Auto) 14 % (0-9) Eosinophils (%) (Auto) 5 % (0-3) Basophils (%) (Auto) 1 % (0-3) Neutrophils # (Auto) 6.8 x10^3uL (1.8-7.7) Lymphocytes # (Auto) 1.2 x10^3/uL (1.0-4.8) Monocytes # (Auto) 1.4 x10^3/uL (0.0-1.1) Eosinophils # (Auto) 0.5 x10^3/uL (0.0-0.7) Basophils # (Auto) 0.1 x10^3/uL (0.0-0.2) Sodium Level 127 mmol/L (136-145) Potassium Level 4.4 mmol/L (3.5-5.1) Chloride Level 91 mmol/L (98-107) Carbon Dioxide Level 24 mmol/L (21-32) Anion Gap 12 (6-14) Blood Urea Nitrogen 66 mg/dL (8-26) Creatinine 2.8 mg/dL (0.7-1.3) Estimated GFR (Cockcroft-Gault) 22.2 Glucose Level 230 mg/dL (70-99) Calcium Level 9.0 mg/dL (8.5-10.1) Laboratory Tests Test 02/09/17 15:50 02/09/17 17:24 02/09/17 20:30 02/09/17 20:44 Potassium Level 3.3 mmol/L (3.5-5.1) 3.8 mmol/L (3.5-5.1) Glucose (Fingerstick) 303 mg/dL (70-99) 329 mg/dL (70-99) Test 02/10/17 00:05 02/10/17 03:00 02/10/17 07:38 02/10/17 08:10 Potassium Level 4.0 mmol/L (3.5-5.1) 4.2 mmol/L (3.5-5.1) 4.4 mmol/L (3.5-5.1) Magnesium Level 2.3 mg/dL (1.8-2.4) Glucose (Fingerstick) 225 mg/dL (70-99) White Blood Count 10.0 x10^3/uL (4.0-11.0) Red Blood Count 3.48 x10^6/uL (4.30-5.70) Hemoglobin 9.9 g/dL (13.0-17.5) Hematocrit 29.7 % (39.0-53.0) Mean Corpuscular Volume 85 fL (79-100) Mean Corpuscular Hemoglobin 28 pg (25-35) Mean Corpuscular Hemoglobin Concent 33 g/dL (31-37) Red Cell Distribution Width 15.0 % (11.5-14.5) Platelet Count 315 x10^3/uL (140-400) Neutrophils (%) (Auto) 67 % (31-73) Lymphocytes (%) (Auto) 12 % (24-48) Monocytes (%) (Auto) 14 % (0-9) Eosinophils (%) (Auto) 5 % (0-3) Basophils (%) (Auto) 1 % (0-3) Neutrophils # (Auto) 6.8 x10^3uL (1.8-7.7) Lymphocytes # (Auto) 1.2 x10^3/uL (1.0-4.8) Monocytes # (Auto) 1.4 x10^3/uL (0.0-1.1) Eosinophils # (Auto) 0.5 x10^3/uL (0.0-0.7) Basophils # (Auto) 0.1 x10^3/uL (0.0-0.2) Sodium Level 127 mmol/L (136-145) Chloride Level 91 mmol/L (98-107) Carbon Dioxide Level 24 mmol/L (21-32) Anion Gap 12 (6-14) Blood Urea Nitrogen 66 mg/dL (8-26) Creatinine 2.8 mg/dL (0.7-1.3) Estimated GFR (Cockcroft-Gault) 22.2 Glucose Level 230 mg/dL (70-99) Calcium Level 9.0 mg/dL (8.5-10.1) Test 02/10/17 11:30 Glucose (Fingerstick) 195 mg/dL (70-99) Microbiology 02/08/17 Urine Culture - Preliminary, Resulted 02/08/17 Urine Culture Result 1 (RIANNA) - Preliminary, Resulted Medications Current Medications Albuterol/ Ipratropium (Duoneb) 3 ml 1X ONCE NEB Last administered on 10:25; Start 02/08/17 at 09:30; Stop 02/08/17 at 09:38; Status DC Nitroglycerin (Nitro-Bid Oint) 1 inch 1X ONCE TP Last administered on 09:45; Start 02/08/17 at 09:30; Stop 02/08/17 at 09:38; Status DC Furosemide (Lasix) 40 mg 1X ONCE IVP Last administered on 02/08/17 09:45; Start 02/08/17 at 09:30; Stop 02/08/17 at 09:38; Status DC Ondansetron HCl (Zofran) 4 mg PRN Q8HRS PRN IV NAUSEA/VOMITING; Start at 11:30; Stop 02/09/17 at 11:29; Status DC Furosemide 100 mg/ Sodium Chloride 100 ml @ 0 mls/hr CONT PRN IV PER PROTOCOL Last administered on 02/10/17 08:50; Start 02/08/17 at 11:30 Aspirin (Bhavya Aspirin) 325 mg DAILY PO Last administered on 02/10/17 08:26; Start 02/09/17 at 09:00 Vitamin D (Vitamin D3) 1,000 unit DAILY PO Last administered on 02/10/17 08: 26; Start 02/09/17 at 09:00 Clopidogrel Bisulfate (Plavix) 75 mg DAILY PO Last administered on 02/10/17 08:25; Start 02/09/17 at 09:00 Metolazone (Zaroxolyn) 2.5 mg DAILY PO ; Start 02/09/17 at 09:00; Stop at 09:00; Status DC Spironolactone (Aldactone) 25 mg DAILY PO ; Start 02/09/17 at 09:00; Stop at 13:33; Status DC Tamsulosin HCl (Flomax) 0.4 mg DAILY PO Last administered on 02/10/17 08:26; Start 02/09/17 at 09:00 Trazodone HCl (Desyrel) 100 mg HS PO Last administered on 02/09/17 20:48; Start 02/08/17 at 21:00 Non-Formulary Medication 1 tab DAILY PO ; Start 02/09/17 at 09:00; Stop at 09:00; Status DC Glipizide (Glucotrol) 10 mg BIDBFRMEAL PO Last administered on 02/10/17 08:25 ; Start 02/09/17 at 17:00 Insulin Aspart (NovoLOG) 20 units TIDAC SQ Last administered on 02/10/17 08: 33; Start 02/08/17 at 16:30 Insulin Detemir (Levemir) 60 units QHS SQ Last administered on 02/09/17 20:50 ; Start 02/08/17 at 21:00 Multivitamins (Thera M Plus) 1 tab DAILY PO Last administered on 02/10/17 08: 25; Start 02/09/17 at 09:00 Acetaminophen (Tylenol) 650 mg PRN Q6HRS PRN PO FEVER; Start 02/08/17 at 16:30 Ondansetron HCl (Zofran) 4 mg PRN Q6HRS PRN IV NAUSEA/VOMITING; Start at 16:30 Morphine Sulfate 2 mg PRN Q2HR PRN IV PAIN; Start 02/08/17 at 16:30 Tramadol HCl (Ultram) 50 mg PRN Q6HRS PRN PO PAIN Last administered on 21:45; Start 02/08/17 at 16:30 Hydralazine HCl (Apresoline Inj) 10 mg PRN Q4HRS PRN IVP ELEVATED BP, SEE COMMENTS; Start 02/08/17 at 16:30 Docusate Sodium (Colace) 100 mg PRN DAILY PRN PO CONSTIPATION Last administered on 02/10/17 08:26; Start 02/08/17 at 16:30 Insulin Aspart (NovoLOG) 0-9 UNITS TIDWMEALS SQ Last administered on 08:33; Start 02/08/17 at 17:00 Dextrose (Dextrose 50%-Water Syringe) 12.5 gm PRN Q15MIN PRN IV SEE COMMENTS; Start 02/08/17 at 16:30 Albuterol Sulfate (Ventolin Neb Soln) 2.5 mg PRN Q4HRS PRN NEB SHORTNESS OF BREATH Last administered on 02/10/17 04:31; Start 02/08/17 at 16:30 Albuterol/ Ipratropium (Duoneb) 3 ml RTQID NEB Last administered on 02/10/17 11:45; Start 02/08/17 at 17:00 Heparin Sodium (Porcine) (Heparin Sq) 5,000 unit Q8HRS SQ Last administered on 02/10/17 06:04; Start 02/08/17 at 22:00 Alprazolam (Xanax) 0.25 mg PRN BID PRN PO ANXIETY / AGITATION Last administered on 02/08/17 17:52; Start 02/08/17 at 17:15; Stop 02/08/17 at 19 :44; Status DC Ceftriaxone Sodium 50 ml @ 100 mls/hr DAILY IV ; Start 02/09/17 at 09:00; Status UNV Alprazolam (Xanax) 0.5 mg PRN Q6HRS PRN PO ANXIETY / AGITATION Last administered on 02/09/17 08:43; Start 02/08/17 at 19:45; Stop 02/09/17 at 10 :55; Status DC Ceftriaxone Sodium (Rocephin) 1 gm Q24H IVP Last administered on 02/09/17 19: 43; Start 02/08/17 at 20:00 Potassium Chloride (Klor-Con) 40 meq 1X ONCE PO Last administered on 08:43; Start 02/09/17 at 08:15; Stop 02/09/17 at 08:16; Status DC Potassium Chloride (Klor-Con) 40 meq 1X ONCE PO Last administered on 12:23; Start 02/09/17 at 12:00; Stop 02/09/17 at 12:01; Status DC Dobutamine HCl/ Dextrose 250 ml @ 0 mls/hr CONT PRN IV SEE I/O RECORD Last administered on 02/09/17 22:38; Start 02/09/17 at 08:15 Alprazolam (Xanax) 0.25 mg PRN Q6HRS PRN PO ANXIETY / AGITATION Last administered on 02/10/17 08:52; Start 02/09/17 at 11:00 Potassium Chloride (Klor-Con) 40 meq PRN Q4HRS PRN PO for K < 4.0 Last administered on 02/09/17 22:13; Start 02/09/17 at 11:15 Albumin Human 100 ml @ 100 mls/hr 1X ONCE IV ; Start 02/10/17 at 12:00; Stop 02/10/17 at 12:59 Albumin Human 100 ml @ 100 mls/hr 1X ONCE IV ; Start 02/10/17 at 20:00; Stop 02/10/17 at 20:59 Active Scripts Active Novolog (Insulin Aspart) 100 Unit/1 Ml Cartridge 25 Unit SQ TID 30 Days Metolazone 2.5 Mg Tablet 2.5 Mg PO DAILY Flomax (Tamsulosin Hcl) 0.4 Mg Cap.er.24h 0.4 Mg PO DAILY Reported Trazodone Hcl 100 Mg Tablet 100 Mg PO HS Glipizide 10 Mg Tablet 1 Tab PO BID Spironolactone 25 Mg Tablet 1 Tab PO DAILY Multi-Day Vitamins (Multivitamin) 1 Each Tablet 1 Tab PO DAILY Vitamin D3 (Cholecalciferol (Vitamin D3)) 1,000 Unit Tablet 1 Tab PO DAILY Aspirin 325 Mg Tablet 1 Tab PO DAILY Bumetanide 2 Mg Tablet 1 Tab PO DAILY Lantus Solostar (Insulin Glargine,Hum.rec.anlog) 100 Unit/1 Ml Insuln.pen 75 Unit SQ QHS Clopidogrel (Clopidogrel Bisulfate) 75 Mg Tablet 1 Tab PO DAILY Vitals/I & O Vital Sign - Last 24 Hours 11/1802/09/17 02/09/17 02/09/17 12:30 13:30 14:30 15:30 Pulse 69 91 79 82 Resp 20 20 B/P (MAP) 122/35 (64) 151/57 (88) 114/78 (90) 100/78 (85) O2 Delivery Nasal Cannula Nasal Cannula Nasal Cannula Nasal Cannula O2 Flow Rate 2.0 2.0 2.0 2.0 02/09/17 02/09/17 02/09/17 02/09/17 16:21 16:31 18:36 19:06 Temp 98.7 98.7 Pulse 107 87 Resp 20 20 B/P (MAP) 127/59 (81) 128/70 (89) Pulse Ox 96 O2 Delivery Nasal Cannula Nasal Cannula Nasal Cannula Nasal Cannula O2 Flow Rate 2.0 2.0 2.0 2.0 02/09/17 02/09/17 02/09/17 02/10/17 20:25 22:39 23:00 00:00 Temp 98.5 98.5 Pulse 95 Resp 18 B/P (MAP) 125/51 (75) 152/65 (94) 147/65 (92) Pulse Ox 96 O2 Delivery Nasal Cannula Nasal Cannula O2 Flow Rate 2.0 2.0 02/10/17 02/10/17 02/10/17 02/10/17 01:50 03:00 04:31 06:19 Temp 98.6 98.5 98.6 98.5 Pulse 105 100 Resp 18 18 B/P (MAP) 133/66 (88) 145/59 (87) 119/57 (77) Pulse Ox 96 96 O2 Delivery Nasal Cannula Nasal Cannula Room Air O2 Flow Rate 2.0 2.0 2.0 02/10/17 02/10/17 02/10/17 02/10/17 07:59 08:00 11:30 11:45 Temp 98.1 98.1 Pulse 101 Resp 20 B/P (MAP) 91/44 (60) Pulse Ox 97 96 O2 Delivery Nasal Cannula Nasal Cannula Nasal Cannula Nasal Cannula O2 Flow Rate 2.0 2.0 2.0 2.0 Intake and Output 02/10/17 02/10/17 02/11/17 15:00 23:00 07:00 Intake Total 200 ml Balance 200 ml OKSANA JOSEPH MD Feb 10, 2017 11:59
[2017-02-10] MEDS ORDERED: ALBUMIN HUMAN 25% 100 ML IV ONE ×2 (12:00→20:00)
--- NOTE | 2017-02-10 13:57 | PDOC ---
PROGRESS NOTES Chief Complaint Chief Complaint acute hypoxia, resp failure from acute CHF acute on chronic systolic CHF exacerbation , last known EF 25% COPD, chroinc hypercarbia DM2 ON insulin htn h/o CAD with CABG anxiety d/o NOS liliane on CKD 3-4 mild malnutrition, in morbid obesity, BMI 40.5 hyponatremia with CHF hyponatremia, POA UTI History of Present Illness History of Present Illness following wYamile Ibarra, , on lasix drip and dobutamine, now starting IV albumin today to try to pull fluid cont home meds, insulin, lytes better dvt ppx albuterol, duoneb daily weight in and out Vitals Vitals Vital Signs Date Time Temp Pulse Resp B/P (MAP) Pulse Ox O2 Delivery O2 Flow Rate FiO2 02/10/17 11:45 Nasal Cannula 2.0 02/10/17 11:30 98.1 101 20 91/44 (60) 96 98.1 Physical Exam General: Alert, Oriented X3, Cooperative, mild distress Heart: Regular rate, Other (S1-S2 positive S3.) Lungs: Clear, Other Abdomen: Normal bowel sounds, Soft Extremities: No clubbing, Other (2-3+ pitting edema of both lower extremities) Skin: No rashes Labs LABS Laboratory Tests Test 02/09/17 15:50 02/09/17 17:24 02/09/17 20:30 02/09/17 20:44 Potassium Level 3.3 mmol/L (3.5-5.1) 3.8 mmol/L (3.5-5.1) Glucose (Fingerstick) 303 mg/dL (70-99) 329 mg/dL (70-99) Test 02/10/17 00:05 02/10/17 03:00 02/10/17 07:38 02/10/17 08:10 Potassium Level 4.0 mmol/L (3.5-5.1) 4.2 mmol/L (3.5-5.1) 4.4 mmol/L (3.5-5.1) Magnesium Level 2.3 mg/dL (1.8-2.4) Glucose (Fingerstick) 225 mg/dL (70-99) White Blood Count 10.0 x10^3/uL (4.0-11.0) Red Blood Count 3.48 x10^6/uL (4.30-5.70) Hemoglobin 9.9 g/dL (13.0-17.5) Hematocrit 29.7 % (39.0-53.0) Mean Corpuscular Volume 85 fL (79-100) Mean Corpuscular Hemoglobin 28 pg (25-35) Mean Corpuscular Hemoglobin Concent 33 g/dL (31-37) Red Cell Distribution Width 15.0 % (11.5-14.5) Platelet Count 315 x10^3/uL (140-400) Neutrophils (%) (Auto) 67 % (31-73) Lymphocytes (%) (Auto) 12 % (24-48) Monocytes (%) (Auto) 14 % (0-9) Eosinophils (%) (Auto) 5 % (0-3) Basophils (%) (Auto) 1 % (0-3) Neutrophils # (Auto) 6.8 x10^3uL (1.8-7.7) Lymphocytes # (Auto) 1.2 x10^3/uL (1.0-4.8) Monocytes # (Auto) 1.4 x10^3/uL (0.0-1.1) Eosinophils # (Auto) 0.5 x10^3/uL (0.0-0.7) Basophils # (Auto) 0.1 x10^3/uL (0.0-0.2) Sodium Level 127 mmol/L (136-145) Chloride Level 91 mmol/L (98-107) Carbon Dioxide Level 24 mmol/L (21-32) Anion Gap 12 (6-14) Blood Urea Nitrogen 66 mg/dL (8-26) Creatinine 2.8 mg/dL (0.7-1.3) Estimated GFR (Cockcroft-Gault) 22.2 Glucose Level 230 mg/dL (70-99) Calcium Level 9.0 mg/dL (8.5-10.1) Test 02/10/17 11:30 Glucose (Fingerstick) 195 mg/dL (70-99) Review of Systems Review of Systems LE edema some dyspnea no pain, slept OK Assessment and Plan Assessmemt and Plan Problems Medical Problems: (1) CHF (congestive heart failure) Status: Acute Problems: Comment Review of Relevant I have reviewed the following items sukumar (where applicable) has been applied. Labs Laboratory Tests Test 02/08/17 17:20 11/17/17 20:54 02/09/17 06:40 02/09/17 08:13 Glucose (Fingerstick) 174 mg/dL (70-99) 72 mg/dL (70-99) 89 mg/dL (70-99) White Blood Count 10.2 x10^3/uL (4.0-11.0) Red Blood Count 3.83 x10^6/uL (4.30-5.70) Hemoglobin 10.9 g/dL (13.0-17.5) Hematocrit 32.4 % (39.0-53.0) Mean Corpuscular Volume 84 fL (79-100) Mean Corpuscular Hemoglobin 28 pg (25-35) Mean Corpuscular Hemoglobin Concent 34 g/dL (31-37) Red Cell Distribution Width 15.0 % (11.5-14.5) Platelet Count 335 x10^3/uL (140-400) Neutrophils (%) (Auto) 65 % (31-73) Lymphocytes (%) (Auto) 13 % (24-48) Monocytes (%) (Auto) 12 % (0-9) Eosinophils (%) (Auto) 10 % (0-3) Basophils (%) (Auto) 1 % (0-3) Neutrophils # (Auto) 6.6 x10^3uL (1.8-7.7) Lymphocytes # (Auto) 1.4 x10^3/uL (1.0-4.8) Monocytes # (Auto) 1.2 x10^3/uL (0.0-1.1) Eosinophils # (Auto) 1.0 x10^3/uL (0.0-0.7) Basophils # (Auto) 0.1 x10^3/uL (0.0-0.2) Sodium Level 127 mmol/L (136-145) Potassium Level 2.9 mmol/L (3.5-5.1) Chloride Level 87 mmol/L (98-107) Carbon Dioxide Level 27 mmol/L (21-32) Anion Gap 13 (6-14) Blood Urea Nitrogen 65 mg/dL (8-26) Creatinine 2.6 mg/dL (0.7-1.3) Estimated GFR (Cockcroft-Gault) 24.2 Glucose Level 87 mg/dL (70-99) Calcium Level 9.3 mg/dL (8.5-10.1) Test 02/09/17 11:30 02/09/17 11:51 02/09/17 15:50 02/09/17 17:24 Potassium Level 3.3 mmol/L (3.5-5.1) 3.3 mmol/L (3.5-5.1) Magnesium Level 2.3 mg/dL (1.8-2.4) Glucose (Fingerstick) 251 mg/dL (70-99) 303 mg/dL (70-99) Test 02/09/17 20:30 02/09/17 20:44 02/10/17 00:05 02/10/17 03:00 Potassium Level 3.8 mmol/L (3.5-5.1) 4.0 mmol/L (3.5-5.1) 4.2 mmol/L (3.5-5.1) Glucose (Fingerstick) 329 mg/dL (70-99) Magnesium Level 2.3 mg/dL (1.8-2.4) Test 02/10/17 07:38 02/10/17 08:10 02/10/17 11:30 Glucose (Fingerstick) 225 mg/dL (70-99) 195 mg/dL (70-99) White Blood Count 10.0 x10^3/uL (4.0-11.0) Red Blood Count 3.48 x10^6/uL (4.30-5.70) Hemoglobin 9.9 g/dL (13.0-17.5) Hematocrit 29.7 % (39.0-53.0) Mean Corpuscular Volume 85 fL (79-100) Mean Corpuscular Hemoglobin 28 pg (25-35) Mean Corpuscular Hemoglobin Concent 33 g/dL (31-37) Red Cell Distribution Width 15.0 % (11.5-14.5) Platelet Count 315 x10^3/uL (140-400) Neutrophils (%) (Auto) 67 % (31-73) Lymphocytes (%) (Auto) 12 % (24-48) Monocytes (%) (Auto) 14 % (0-9) Eosinophils (%) (Auto) 5 % (0-3) Basophils (%) (Auto) 1 % (0-3) Neutrophils # (Auto) 6.8 x10^3uL (1.8-7.7) Lymphocytes # (Auto) 1.2 x10^3/uL (1.0-4.8) Monocytes # (Auto) 1.4 x10^3/uL (0.0-1.1) Eosinophils # (Auto) 0.5 x10^3/uL (0.0-0.7) Basophils # (Auto) 0.1 x10^3/uL (0.0-0.2) Sodium Level 127 mmol/L (136-145) Potassium Level 4.4 mmol/L (3.5-5.1) Chloride Level 91 mmol/L (98-107) Carbon Dioxide Level 24 mmol/L (21-32) Anion Gap 12 (6-14) Blood Urea Nitrogen 66 mg/dL (8-26) Creatinine 2.8 mg/dL (0.7-1.3) Estimated GFR (Cockcroft-Gault) 22.2 Glucose Level 230 mg/dL (70-99) Calcium Level 9.0 mg/dL (8.5-10.1) Laboratory Tests Test 02/09/17 15:50 02/09/17 17:24 02/09/17 20:30 02/09/17 20:44 Potassium Level 3.3 mmol/L (3.5-5.1) 3.8 mmol/L (3.5-5.1) Glucose (Fingerstick) 303 mg/dL (70-99) 329 mg/dL (70-99) Test 02/10/17 00:05 02/10/17 03:00 02/10/17 07:38 02/10/17 08:10 Potassium Level 4.0 mmol/L (3.5-5.1) 4.2 mmol/L (3.5-5.1) 4.4 mmol/L (3.5-5.1) Magnesium Level 2.3 mg/dL (1.8-2.4) Glucose (Fingerstick) 225 mg/dL (70-99) White Blood Count 10.0 x10^3/uL (4.0-11.0) Red Blood Count 3.48 x10^6/uL (4.30-5.70) Hemoglobin 9.9 g/dL (13.0-17.5) Hematocrit 29.7 % (39.0-53.0) Mean Corpuscular Volume 85 fL (79-100) Mean Corpuscular Hemoglobin 28 pg (25-35) Mean Corpuscular Hemoglobin Concent 33 g/dL (31-37) Red Cell Distribution Width 15.0 % (11.5-14.5) Platelet Count 315 x10^3/uL (140-400) Neutrophils (%) (Auto) 67 % (31-73) Lymphocytes (%) (Auto) 12 % (24-48) Monocytes (%) (Auto) 14 % (0-9) Eosinophils (%) (Auto) 5 % (0-3) Basophils (%) (Auto) 1 % (0-3) Neutrophils # (Auto) 6.8 x10^3uL (1.8-7.7) Lymphocytes # (Auto) 1.2 x10^3/uL (1.0-4.8) Monocytes # (Auto) 1.4 x10^3/uL (0.0-1.1) Eosinophils # (Auto) 0.5 x10^3/uL (0.0-0.7) Basophils # (Auto) 0.1 x10^3/uL (0.0-0.2) Sodium Level 127 mmol/L (136-145) Chloride Level 91 mmol/L (98-107) Carbon Dioxide Level 24 mmol/L (21-32) Anion Gap 12 (6-14) Blood Urea Nitrogen 66 mg/dL (8-26) Creatinine 2.8 mg/dL (0.7-1.3) Estimated GFR (Cockcroft-Gault) 22.2 Glucose Level 230 mg/dL (70-99) Calcium Level 9.0 mg/dL (8.5-10.1) Test 02/10/17 11:30 Glucose (Fingerstick) 195 mg/dL (70-99) Microbiology 02/08/17 Urine Culture - Final, Complete 02/08/17 Urine Culture Result 1 (RIANNA) - Final, Complete Medications Current Medications Albuterol/ Ipratropium (Duoneb) 3 ml 1X ONCE NEB Last administered on t 10:25; Start 02/08/17 at 09:30; Stop 02/08/17 at 09:38; Status DC Nitroglycerin (Nitro-Bid Oint) 1 inch 1X ONCE TP Last administered on 09:45; Start 02/08/17 at 09:30; Stop 02/08/17 at 09:38; Status DC Furosemide (Lasix) 40 mg 1X ONCE IVP Last administered on 02/08/17 09:45; Start 02/08/17 at 09:30; Stop 02/08/17 at 09:38; Status DC Ondansetron HCl (Zofran) 4 mg PRN Q8HRS PRN IV NAUSEA/VOMITING; Start at 11:30; Stop 02/09/17 at 11:29; Status DC Furosemide 100 mg/ Sodium Chloride 100 ml @ 0 mls/hr CONT PRN IV PER PROTOCOL Last administered on 02/10/17 08:50; Start 02/08/17 at 11:30 Aspirin (Bhavya Aspirin) 325 mg DAILY PO Last administered on 02/10/17 08:26; Start 02/09/17 at 09:00 Vitamin D (Vitamin D3) 1,000 unit DAILY PO Last administered on 02/10/17 08: 26; Start 02/09/17 at 09:00 Clopidogrel Bisulfate (Plavix) 75 mg DAILY PO Last administered on 02/10/17 08:25; Start 02/09/17 at 09:00 Metolazone (Zaroxolyn) 2.5 mg DAILY PO ; Start 02/09/17 at 09:00; Stop at 09:00; Status DC Spironolactone (Aldactone) 25 mg DAILY PO ; Start 02/09/17 at 09:00; Stop at 13:33; Status DC Tamsulosin HCl (Flomax) 0.4 mg DAILY PO Last administered on 02/10/17 08:26; Start 02/09/17 at 09:00 Trazodone HCl (Desyrel) 100 mg HS PO Last administered on 02/09/17 20:48; Start 02/08/17 at 21:00 Non-Formulary Medication 1 tab DAILY PO ; Start 02/09/17 at 09:00; Stop at 09:00; Status DC Glipizide (Glucotrol) 10 mg BIDBFRMEAL PO Last administered on 02/10/17 08:25 ; Start 02/09/17 at 17:00 Insulin Aspart (NovoLOG) 20 units TIDAC SQ Last administered on 02/10/17 12: 02; Start 02/08/17 at 16:30 Insulin Detemir (Levemir) 60 units QHS SQ Last administered on 02/09/17 20:50 ; Start 02/08/17 at 21:00 Multivitamins (Thera M Plus) 1 tab DAILY PO Last administered on 02/10/17 08: 25; Start 02/09/17 at 09:00 Acetaminophen (Tylenol) 650 mg PRN Q6HRS PRN PO FEVER; Start 02/08/17 at 16:30 Ondansetron HCl (Zofran) 4 mg PRN Q6HRS PRN IV NAUSEA/VOMITING; Start at 16:30 Morphine Sulfate 2 mg PRN Q2HR PRN IV PAIN; Start 02/08/17 at 16:30 Tramadol HCl (Ultram) 50 mg PRN Q6HRS PRN PO PAIN Last administered on 21:45; Start 02/08/17 at 16:30 Hydralazine HCl (Apresoline Inj) 10 mg PRN Q4HRS PRN IVP ELEVATED BP, SEE COMMENTS; Start 02/08/17 at 16:30 Docusate Sodium (Colace) 100 mg PRN DAILY PRN PO CONSTIPATION Last administered on 02/10/17 08:26; Start 02/08/17 at 16:30 Insulin Aspart (NovoLOG) 0-9 UNITS TIDWMEALS SQ Last administered on 12:01; Start 02/08/17 at 17:00 Dextrose (Dextrose 50%-Water Syringe) 12.5 gm PRN Q15MIN PRN IV SEE COMMENTS; Start 02/08/17 at 16:30 Albuterol Sulfate (Ventolin Neb Soln) 2.5 mg PRN Q4HRS PRN NEB SHORTNESS OF BREATH Last administered on 02/10/17 04:31; Start 02/08/17 at 16:30 Albuterol/ Ipratropium (Duoneb) 3 ml RTQID NEB Last administered on 02/10/17 11:45; Start 02/08/17 at 17:00 Heparin Sodium (Porcine) (Heparin Sq) 5,000 unit Q8HRS SQ Last administered on 02/10/17 06:04; Start 02/08/17 at 22:00 Alprazolam (Xanax) 0.25 mg PRN BID PRN PO ANXIETY / AGITATION Last administered on 02/08/17 17:52; Start 02/08/17 at 17:15; Stop 02/08/17 at 19 :44; Status DC Ceftriaxone Sodium 50 ml @ 100 mls/hr DAILY IV ; Start 02/09/17 at 09:00; Status UNV Alprazolam (Xanax) 0.5 mg PRN Q6HRS PRN PO ANXIETY / AGITATION Last administered on 02/09/17 08:43; Start 02/08/17 at 19:45; Stop 02/09/17 at 10 :55; Status DC Ceftriaxone Sodium (Rocephin) 1 gm Q24H IVP Last administered on 02/09/17 19: 43; Start 02/08/17 at 20:00 Potassium Chloride (Klor-Con) 40 meq 1X ONCE PO Last administered on 08:43; Start 02/09/17 at 08:15; Stop 02/09/17 at 08:16; Status DC Potassium Chloride (Klor-Con) 40 meq 1X ONCE PO Last administered on 12:23; Start 02/09/17 at 12:00; Stop 02/09/17 at 12:01; Status DC Dobutamine HCl/ Dextrose 250 ml @ 0 mls/hr CONT PRN IV SEE I/O RECORD Last administered on 02/09/17 22:38; Start 02/09/17 at 08:15 Alprazolam (Xanax) 0.25 mg PRN Q6HRS PRN PO ANXIETY / AGITATION Last administered on 02/10/17 08:52; Start 02/09/17 at 11:00 Potassium Chloride (Klor-Con) 40 meq PRN Q4HRS PRN PO for K < 4.0 Last administered on 02/09/17 22:13; Start 02/09/17 at 11:15 Albumin Human 100 ml @ 100 mls/hr 1X ONCE IV Last administered on 02/10/17 12:00; Start 02/10/17 at 12:00; Stop 02/10/17 at 12:59; Status DC Albumin Human 100 ml @ 100 mls/hr 1X ONCE IV ; Start 02/10/17 at 20:00; Stop 02/10/17 at 20:59 Active Scripts Active Novolog (Insulin Aspart) 100 Unit/1 Ml Cartridge 25 Unit SQ TID 30 Days Metolazone 2.5 Mg Tablet 2.5 Mg PO DAILY Flomax (Tamsulosin Hcl) 0.4 Mg Cap.er.24h 0.4 Mg PO DAILY Reported Trazodone Hcl 100 Mg Tablet 100 Mg PO HS Glipizide 10 Mg Tablet 1 Tab PO BID Spironolactone 25 Mg Tablet 1 Tab PO DAILY Multi-Day Vitamins (Multivitamin) 1 Each Tablet 1 Tab PO DAILY Vitamin D3 (Cholecalciferol (Vitamin D3)) 1,000 Unit Tablet 1 Tab PO DAILY Aspirin 325 Mg Tablet 1 Tab PO DAILY Bumetanide 2 Mg Tablet 1 Tab PO DAILY Lantus Solostar (Insulin Glargine,Hum.rec.anlog) 100 Unit/1 Ml Insuln.pen 75 Unit SQ QHS Clopidogrel (Clopidogrel Bisulfate) 75 Mg Tablet 1 Tab PO DAILY Vitals/I & O Vital Sign - Last 24 Hours 02/09/17 02/09/17 02/09/17 02/09/17 14:30 15:30 16:21 16:31 Pulse 79 82 107 Resp 20 20 20 B/P (MAP) 114/78 (90) 100/78 (85) 127/59 (81) O2 Delivery Nasal Cannula Nasal Cannula Nasal Cannula Nasal Cannula O2 Flow Rate 2.0 2.0 2.0 2.0 02/09/17 02/09/17 02/09/17 02/09/17 18:36 19:06 20:25 22:39 Temp 98.7 98.5 98.7 98.5 Pulse 87 95 Resp 20 18 B/P (MAP) 128/70 (89) 125/51 (75) Pulse Ox 96 96 O2 Delivery Nasal Cannula Nasal Cannula Nasal Cannula Nasal Cannula O2 Flow Rate 2.0 2.0 2.0 2.0 02/09/17 02/10/17 02/10/17 02/10/17 23:00 00:00 01:50 03:00 Temp 98.6 98.6 Pulse 105 Resp 18 B/P (MAP) 152/65 (94) 147/65 (92) 133/66 (88) 145/59 (87) Pulse Ox 96 O2 Delivery Nasal Cannula O2 Flow Rate 2.0 02/10/17 02/10/17 02/10/17 02/10/17 04:31 06:19 07:59 08:00 Temp 98.5 98.5 Pulse 100 Resp 18 B/P (MAP) 119/57 (77) Pulse Ox 96 97 O2 Delivery Nasal Cannula Room Air Nasal Cannula Nasal Cannula O2 Flow Rate 2.0 2.0 2.0 2.0 02/10/17 02/10/17 11:30 11:45 Temp 98.1 98.1 Pulse 101 Resp 20 B/P (MAP) 91/44 (60) Pulse Ox 96 O2 Delivery Nasal Cannula Nasal Cannula O2 Flow Rate 2.0 2.0 Intake and Output 02/09/17 02/09/17 02/10/17 15:00 23:00 07:00 Intake Total 480 ml 840 ml 995 ml Output Total 925 ml 450 ml Balance 480 ml -85 ml 545 ml VICENTE FLORES MD Feb 10, 2017 13:57
--- NOTE | 2017-02-10 15:32 | PDOC ---
SUBJECTIVE ROS CKD IV Doing OK overall, Breathing maybe a littl better CVS: min Orthopnea, no CP RESP: min SOB, + HERNANDEZ GI: no Nausea, no Vomiting : no Dysuria, no Urgency - regalado in palce OBJECTIVE Vital Signs Vital Signs Date Time Temp Pulse Resp B/P (MAP) Pulse Ox O2 Delivery O2 Flow Rate FiO2 02/10/17 14:31 18 118/49 (72) Nasal Cannula 2.0 02/10/17 11:30 98.1 101 96 98.1 I & 0 Intake and Output 02/10/17 07:00 Intake Total 2315 ml Output Total 1375 ml Balance 940 ml Intake Oral 1970 ml IV Total 345 ml Output Urine Total 1375 ml PHYSICAL EXAM Physical Exam General Appearance: Awake Alert Oriented x 3 In no Distress - drowsy - morbildy obese Eyes: VIsion Unchanged Conjunctiva Normal EN: No EN Drainage Mucous Memb. mosit Neck: no JVD no JVP Supple no Thyromegaly - thick neck CVS: S1 S2 ? Murmur No Gallop No Rub +2-3 Edema Resp: no Rales no Rhonchi no Acc. Muscle use GI: BAS +ve NO Bruit Non Tender Non Distended - obese : no CVA tenderness; no Suprapubic Tenderness Assessment & Plan CKD III/ Iv - [facility]. : Current FLuid and E-lyte status does not necessitate emergent need for Dialysis. Will re- evaluate for Dialysis in am linda if UO drops off hypoNatremia - suspect due to CHF Exac. If not better with lasix gtt then he mauy need Vaprisol but BP are labile currently; check TSH and liver Hypokalemia - replaced PO CHF/ edema / ansarca - lasix gtt and Ionotropes as ordered - may need HD if unable to mobilize fluid to the point of resp comfort Anemia- check Iron Urine cx -ve COMMENT/RELEVANT DATA Meds Current Medications Medications (Trade) Dose Ordered Sig/Cherie Start Time Stop Time Status Last Admin Dose Admin Acetaminophen (Tylenol) 650 mg PRN Q6HRS PRN 02/08/17 16:30 Albumin Human 100 ml @ 100 mls/hr 1X ONCE 02/10/17 20:00 02/10/17 20:59 Albuterol Sulfate (Ventolin Neb Soln) 2.5 mg PRN Q4HRS PRN 02/08/17 16:30 02/10/17 04:31 2.5 MG Albuterol/ Ipratropium (Duoneb) 3 ml RTQID 02/08/17 17:00 02/10/17 11:45 3 ML Alprazolam (Xanax) 0.25 mg PRN Q6HRS PRN 02/09/17 11:00 02/10/17 08:52 0.25 MG Aspirin (Bhavya Aspirin) 325 mg DAILY 02/09/17 09:00 02/10/17 08:26 325 MG Ceftriaxone Sodium (Rocephin) 1 gm Q24H 02/08/17 20:00 02/09/17 19:43 1 GM Clopidogrel Bisulfate (Plavix) 75 mg DAILY 02/09/17 09:00 02/10/17 08:25 75 MG Dextrose (Dextrose 50%-Water Syringe) 12.5 gm PRN Q15MIN PRN 02/08/17 16:30 Dobutamine HCl/ Dextrose 250 ml @ 0 mls/hr CONT PRN 02/09/17 08:15 02/10/17 14:33 18.8 MLS/HR Docusate Sodium (Colace) 100 mg PRN DAILY PRN 02/08/17 16:30 02/10/17 08:26 100 MG Furosemide (Lasix) 40 mg 1X ONCE 02/08/17 09:30 02/08/17 09:38 DC 02/08/17 09:45 40 MG Furosemide 100 mg/ Sodium Chloride 100 ml @ 0 mls/hr CONT PRN 02/08/17 11:30 02/10/17 08:50 10 MLS/HR Glipizide (Glucotrol) 10 mg BIDBFRMEAL 02/09/17 17:00 02/10/17 08:25 10 MG Heparin Sodium (Porcine) (Heparin Sq) 5,000 unit Q8HRS 02/08/17 22:00 02/10/17 14:37 5,000 UNIT Hydralazine HCl (Apresoline Inj) 10 mg PRN Q4HRS PRN 02/08/17 16:30 Insulin Aspart (NovoLOG) 0-9 UNITS TIDWMEALS 02/08/17 17:00 02/10/17 12:01 4 UNITS Insulin Detemir (Levemir) 60 units QHS 02/08/17 21:00 02/09/17 20:50 60 UNITS Metolazone (Zaroxolyn) 2.5 mg DAILY 02/09/17 09:00 02/09/17 09:00 DC Morphine Sulfate 2 mg PRN Q2HR PRN 02/08/17 16:30 Multivitamins (Thera M Plus) 1 tab DAILY 02/09/17 09:00 02/10/17 08:25 1 TAB Nitroglycerin (Nitro-Bid Oint) 1 inch 1X ONCE 02/08/17 09:30 02/08/17 09:38 DC 02/08/17 09:45 1 INCH Non-Formulary Medication 1 tab DAILY 02/09/17 09:00 02/09/17 09:00 DC Ondansetron HCl (Zofran) 4 mg PRN Q6HRS PRN 02/08/17 16:30 Potassium Chloride (Klor-Con) 40 meq PRN Q4HRS PRN 02/09/17 11:15 02/09/17 22:13 40 MEQ Spironolactone (Aldactone) 25 mg DAILY 02/09/17 09:00 02/09/17 13:33 DC Tamsulosin HCl (Flomax) 0.4 mg DAILY 02/09/17 09:00 02/10/17 08:26 0.4 MG Tramadol HCl (Ultram) 50 mg PRN Q6HRS PRN 02/08/17 16:30 02/08/17 21:45 50 MG Trazodone HCl (Desyrel) 100 mg HS 02/08/17 21:00 02/09/17 20:48 100 MG Vitamin D (Vitamin D3) 1,000 unit DAILY 02/09/17 09:00 02/10/17 08:26 1,000 UNIT Lab Laboratory Tests Test 02/09/17 15:50 02/09/17 17:24 02/09/17 20:30 02/09/17 20:44 Potassium Level 3.3 mmol/L (3.5-5.1) 3.8 mmol/L (3.5-5.1) Glucose (Fingerstick) 303 mg/dL (70-99) 329 mg/dL (70-99) Test 02/10/17 00:05 02/10/17 03:00 02/10/17 07:38 02/10/17 08:10 Potassium Level 4.0 mmol/L (3.5-5.1) 4.2 mmol/L (3.5-5.1) 4.4 mmol/L (3.5-5.1) Magnesium Level 2.3 mg/dL (1.8-2.4) Glucose (Fingerstick) 225 mg/dL (70-99) White Blood Count 10.0 x10^3/uL (4.0-11.0) Red Blood Count 3.48 x10^6/uL (4.30-5.70) Hemoglobin 9.9 g/dL (13.0-17.5) Hematocrit 29.7 % (39.0-53.0) Mean Corpuscular Volume 85 fL (79-100) Mean Corpuscular Hemoglobin 28 pg (25-35) Mean Corpuscular Hemoglobin Concent 33 g/dL (31-37) Red Cell Distribution Width 15.0 % (11.5-14.5) Platelet Count 315 x10^3/uL (140-400) Neutrophils (%) (Auto) 67 % (31-73) Lymphocytes (%) (Auto) 12 % (24-48) Monocytes (%) (Auto) 14 % (0-9) Eosinophils (%) (Auto) 5 % (0-3) Basophils (%) (Auto) 1 % (0-3) Neutrophils # (Auto) 6.8 x10^3uL (1.8-7.7) Lymphocytes # (Auto) 1.2 x10^3/uL (1.0-4.8) Monocytes # (Auto) 1.4 x10^3/uL (0.0-1.1) Eosinophils # (Auto) 0.5 x10^3/uL (0.0-0.7) Basophils # (Auto) 0.1 x10^3/uL (0.0-0.2) Sodium Level 127 mmol/L (136-145) Chloride Level 91 mmol/L (98-107) Carbon Dioxide Level 24 mmol/L (21-32) Anion Gap 12 (6-14) Blood Urea Nitrogen 66 mg/dL (8-26) Creatinine 2.8 mg/dL (0.7-1.3) Estimated GFR (Cockcroft-Gault) 22.2 Glucose Level 230 mg/dL (70-99) Calcium Level 9.0 mg/dL (8.5-10.1) Test 02/10/17 11:30 Glucose (Fingerstick) 195 mg/dL (70-99) UAGIE MONTELONGO MD Feb 10, 2017 15:32
[2017-02-10] MEDS: traZODone 100 MG TABLET. PO SCH (21:24)
[2017-02-10] MEDS: traMADol 50 MG TABLET PO PRN (21:24)
[2017-02-10] MEDS: cefTRIAXone IV Push 1 GM VIAL. IVP SCH (21:24)
[2017-02-10] MEDS: INSULIN DETEMIR 300 UNITS/3 ML INSULN.PEN. SQ SCH (21:29)
[2017-02-11 03:00] VITALS: BP 140/60
[2017-02-11] MEDS: HEPARIN PF for SUB-Q USE 5,000 UNIT/0.5 ML VIAL. SQ SCH ×3 (06:35→20:11)
[2017-02-11 07:25] VITALS: BP 97/53
[2017-02-11] MEDS: INSULIN ASPART 300 UNITS/3 ML INSULN.PEN SQ SCH ×6 (07:30→18:02)
[2017-02-11] MEDS: IPRATRPIUM/ALBUTEROL 0.5/2.5MG 3 ML NEBU. NEB SCH ×4 (07:36→19:45)
--- NOTE | 2017-02-11 07:43 | RAD ---
EXAM: ABDOMINAL ULTRASOUND. HISTORY: Cirrhosis, edema, elevated creatinine. COMPARISON: 07/30/2015. FINDINGS: Sonographic evaluation of the abdomen was performed. Visualization was limited secondary to bowel gas and habitus. Hyperechogenicity of the hepatic parenchyma is consistent with diffuse hepatic steatosis. Sensitivity for focal lesions is decreased in this setting, but none are seen. The liver is enlarged spanning 20 cm. There appears to mild hepatic surface nodularity. The spleen measures 13 cm. The gallbladder is unremarkable without evidence of stones, wall thickening or pericholecystic fluid. There is no sonographic Cohen sign. The common duct measures 6 mm. The visualized portions of the head and body of the pancreas reveal no abnormality. The right kidney measures 10.4 cm. Cortical thickness and echogenicity are preserved. There is no hydronephrosis. The left kidney measures 10.8 cm. Cortical thickness and echogenicity are preserved. There is no hydronephrosis. The visualized portions of the abdominal aorta and inferior vena cava are grossly patent and normal in caliber. There is no clear ascites. IMPRESSION: 1. Mild hepatic surface nodularity is consistent with cirrhotic change. Diffuse hepatic steatosis and hepatomegaly. 2. Unremarkable examination of the kidneys. No hydronephrosis.
[2017-02-11] MEDS: ASPIRIN 325 MG TABLET PO SCH ×2 (09:00→09:13)
[2017-02-11] MEDS: CLOPIDOGREL BISULFATE 75 MG TABLET PO SCH ×2 (09:13→20:12)
[2017-02-11] MEDS: MULTIVITAMIN with MINERAL TABLET. PO SCH (09:13)
[2017-02-11] MEDS: CHOLECALCIFEROL (VITAMIN D3) 1,000 UNIT TABLET PO SCH (09:14)
[2017-02-11] MEDS: glipiZIDE 5 MG TABLET PO SCH ×2 (09:14→17:57)
[2017-02-11] MEDS: DOCUSATE SODIUM 100 MG CAPSULE. PO PRN (09:14)
[2017-02-11] MEDS: TAMSULOSIN 0.4 MG CAP.ER.24H. PO SCH (09:14)
--- NOTE | 2017-02-11 09:49 | PDOC ---
PROGRESS NOTES Subjective Subjective Patient with increased lethargy this AM. In and out of sleep. Patient reports that he feels his breathing has been "on and off" overnight and this morning as well. Continues to have weight gain even on Lasix, dobutamine, and albumin. Patient is up ~10lbs in the last 2 days. Denies any chest pain or discomfort. Objective Objective Vital Signs Date Time Temp Pulse Resp B/P (MAP) Pulse Ox O2 Delivery O2 Flow Rate FiO2 02/11/17 08:00 Nasal Cannula 2.0 02/11/17 07:37 93 02/11/17 07:25 99.0 89 24 97/53 (68) 99.0 Intake and Output 02/11/17 06:59 Intake Total 2100 ml Output Total 1000 ml Balance 1100 ml Intake Oral 2100 ml Output Urine Total 1000 ml Physical Exam COMMENT No acute distress Mildly Lethargic No change in cardiac exam Diminished breath sounds and crackles in lungs b/l. +2-3 pitting edema in LE b/l Assessment Assessment Problems Medical Problems: (1) CHF (congestive heart failure) Status: Acute Plan Plan of Care CHF- Patient on IV Lasix, Dobutamine, and is s/p Albumin. Still with decreased urinary output. Continues to gain weight and appears to be deteriorating. Increased SOB. Nephrology following. Possible need for HD today due to deteriorating condition and urinary output drop-off. Nephrology following and will make decision on need for HD. Continue current cardiac medication regimen. Comment Review of Relevant I have reviewed the following items sukumar (where applicable) has been applied. Labs Laboratory Tests Test 02/09/17 11:30 02/09/17 11:51 02/09/17 15:50 02/09/17 17:24 Potassium Level 3.3 mmol/L (3.5-5.1) 3.3 mmol/L (3.5-5.1) Magnesium Level 2.3 mg/dL (1.8-2.4) Glucose (Fingerstick) 251 mg/dL (70-99) 303 mg/dL (70-99) Test 02/09/17 20:30 02/09/17 20:44 02/10/17 00:05 02/10/17 03:00 Potassium Level 3.8 mmol/L (3.5-5.1) 4.0 mmol/L (3.5-5.1) 4.2 mmol/L (3.5-5.1) Glucose (Fingerstick) 329 mg/dL (70-99) Magnesium Level 2.3 mg/dL (1.8-2.4) Test 02/10/17 07:38 02/10/17 08:10 02/10/17 11:30 02/10/17 16:00 Glucose (Fingerstick) 225 mg/dL (70-99) 195 mg/dL (70-99) White Blood Count 10.0 x10^3/uL (4.0-11.0) Red Blood Count 3.48 x10^6/uL (4.30-5.70) Hemoglobin 9.9 g/dL (13.0-17.5) Hematocrit 29.7 % (39.0-53.0) Mean Corpuscular Volume 85 fL (79-100) Mean Corpuscular Hemoglobin 28 pg (25-35) Mean Corpuscular Hemoglobin Concent 33 g/dL (31-37) Red Cell Distribution Width 15.0 % (11.5-14.5) Platelet Count 315 x10^3/uL (140-400) Neutrophils (%) (Auto) 67 % (31-73) Lymphocytes (%) (Auto) 12 % (24-48) Monocytes (%) (Auto) 14 % (0-9) Eosinophils (%) (Auto) 5 % (0-3) Basophils (%) (Auto) 1 % (0-3) Neutrophils # (Auto) 6.8 x10^3uL (1.8-7.7) Lymphocytes # (Auto) 1.2 x10^3/uL (1.0-4.8) Monocytes # (Auto) 1.4 x10^3/uL (0.0-1.1) Eosinophils # (Auto) 0.5 x10^3/uL (0.0-0.7) Basophils # (Auto) 0.1 x10^3/uL (0.0-0.2) Sodium Level 127 mmol/L (136-145) Potassium Level 4.4 mmol/L (3.5-5.1) 4.5 mmol/L (3.5-5.1) Chloride Level 91 mmol/L (98-107) Carbon Dioxide Level 24 mmol/L (21-32) Anion Gap 12 (6-14) Blood Urea Nitrogen 66 mg/dL (8-26) Creatinine 2.8 mg/dL (0.7-1.3) Estimated GFR (Cockcroft-Gault) 22.2 Glucose Level 230 mg/dL (70-99) Calcium Level 9.0 mg/dL (8.5-10.1) Thyroid Stimulating Hormone (TSH) 0.677 uIU/mL (0.358-3.74) Test 02/10/17 16:58 02/10/17 20:10 02/10/17 21:28 02/11/17 03:50 Glucose (Fingerstick) 346 mg/dL (70-99) 346 mg/dL (70-99) Potassium Level 4.6 mmol/L (3.5-5.1) 5.0 mmol/L (3.5-5.1) Magnesium Level 2.4 mg/dL (1.8-2.4) Test 02/11/17 07:27 02/11/17 07:50 Glucose (Fingerstick) 288 mg/dL (70-99) Potassium Level 4.4 mmol/L (3.5-5.1) Laboratory Tests Test 02/10/17 11:30 02/10/17 16:00 02/10/17 16:58 02/10/17 20:10 Glucose (Fingerstick) 195 mg/dL (70-99) 346 mg/dL (70-99) Potassium Level 4.5 mmol/L (3.5-5.1) 4.6 mmol/L (3.5-5.1) Test 02/10/17 21:28 02/11/17 03:50 02/11/17 07:27 02/11/17 07:50 Glucose (Fingerstick) 346 mg/dL (70-99) 288 mg/dL (70-99) Potassium Level 5.0 mmol/L (3.5-5.1) 4.4 mmol/L (3.5-5.1) Magnesium Level 2.4 mg/dL (1.8-2.4) Microbiology 02/08/17 Urine Culture - Final, Complete 02/08/17 Urine Culture Result 1 (RIANNA) - Final, Complete Medications Current Medications Albuterol/ Ipratropium (Duoneb) 3 ml 1X ONCE NEB Last administered on 10:25; Start 02/08/17 at 09:30; Stop 02/08/17 at 09:38; Status DC Nitroglycerin (Nitro-Bid Oint) 1 inch 1X ONCE TP Last administered on 09:45; Start 02/08/17 at 09:30; Stop 02/08/17 at 09:38; Status DC Furosemide (Lasix) 40 mg 1X ONCE IVP Last administered on 02/08/17 09:45; Start 02/08/17 at 09:30; Stop 02/08/17 at 09:38; Status DC Ondansetron HCl (Zofran) 4 mg PRN Q8HRS PRN IV NAUSEA/VOMITING; Start at 11:30; Stop 02/09/17 at 11:29; Status DC Furosemide 100 mg/ Sodium Chloride 100 ml @ 0 mls/hr CONT PRN IV PER PROTOCOL Last administered on 02/11/17 00:00; Start 02/08/17 at 11:30 Aspirin (Bhavya Aspirin) 325 mg DAILY PO Last administered on 02/11/17 09:13; Start 02/09/17 at 09:00 Vitamin D (Vitamin D3) 1,000 unit DAILY PO Last administered on 02/11/17 09: 14; Start 02/09/17 at 09:00 Clopidogrel Bisulfate (Plavix) 75 mg DAILY PO Last administered on 02/11/17 09:13; Start 02/09/17 at 09:00 Metolazone (Zaroxolyn) 2.5 mg DAILY PO ; Start 02/09/17 at 09:00; Stop at 09:00; Status DC Spironolactone (Aldactone) 25 mg DAILY PO ; Start 02/09/17 at 09:00; Stop at 13:33; Status DC Tamsulosin HCl (Flomax) 0.4 mg DAILY PO Last administered on 02/11/17 09:14; Start 02/09/17 at 09:00 Trazodone HCl (Desyrel) 100 mg HS PO Last administered on 02/10/17 21:24; Start 02/08/17 at 21:00 Non-Formulary Medication 1 tab DAILY PO ; Start 02/09/17 at 09:00; Stop at 09:00; Status DC Glipizide (Glucotrol) 10 mg BIDBFRMEAL PO Last administered on 02/11/17 09:14 ; Start 02/09/17 at 17:00 Insulin Aspart (NovoLOG) 20 units TIDAC SQ Last administered on 02/10/17 17: 03; Start 02/08/17 at 16:30 Insulin Detemir (Levemir) 60 units QHS SQ Last administered on 02/10/17 21:29 ; Start 02/08/17 at 21:00 Multivitamins (Thera M Plus) 1 tab DAILY PO Last administered on 02/11/17 09: 13; Start 02/09/17 at 09:00 Acetaminophen (Tylenol) 650 mg PRN Q6HRS PRN PO FEVER; Start 02/08/17 at 16:30 Ondansetron HCl (Zofran) 4 mg PRN Q6HRS PRN IV NAUSEA/VOMITING; Start at 16:30 Morphine Sulfate 2 mg PRN Q2HR PRN IV PAIN; Start 02/08/17 at 16:30 Tramadol HCl (Ultram) 50 mg PRN Q6HRS PRN PO PAIN Last administered on 21:24; Start 02/08/17 at 16:30 Hydralazine HCl (Apresoline Inj) 10 mg PRN Q4HRS PRN IVP ELEVATED BP, SEE COMMENTS; Start 02/08/17 at 16:30 Docusate Sodium (Colace) 100 mg PRN DAILY PRN PO CONSTIPATION Last administered on 02/11/17 09:14; Start 02/08/17 at 16:30 Insulin Aspart (NovoLOG) 0-9 UNITS TIDWMEALS SQ Last administered on 09:18; Start 02/08/17 at 17:00 Dextrose (Dextrose 50%-Water Syringe) 12.5 gm PRN Q15MIN PRN IV SEE COMMENTS; Start 02/08/17 at 16:30 Albuterol Sulfate (Ventolin Neb Soln) 2.5 mg PRN Q4HRS PRN NEB SHORTNESS OF BREATH Last administered on 02/10/17 04:31; Start 02/08/17 at 16:30 Albuterol/ Ipratropium (Duoneb) 3 ml RTQID NEB Last administered on 02/11/17 07:36; Start 02/08/17 at 17:00 Heparin Sodium (Porcine) (Heparin Sq) 5,000 unit Q8HRS SQ Last administered on 02/11/17 06:35; Start 02/08/17 at 22:00 Alprazolam (Xanax) 0.25 mg PRN BID PRN PO ANXIETY / AGITATION Last administered on 02/08/17 17:52; Start 02/08/17 at 17:15; Stop 02/08/17 at 19 :44; Status DC Ceftriaxone Sodium 50 ml @ 100 mls/hr DAILY IV ; Start 02/09/17 at 09:00; Status UNV Alprazolam (Xanax) 0.5 mg PRN Q6HRS PRN PO ANXIETY / AGITATION Last administered on 02/09/17 08:43; Start 02/08/17 at 19:45; Stop 02/09/17 at 10 :55; Status DC Ceftriaxone Sodium (Rocephin) 1 gm Q24H IVP Last administered on 02/10/17 21: 24; Start 02/08/17 at 20:00 Potassium Chloride (Klor-Con) 40 meq 1X ONCE PO Last administered on 08:43; Start 02/09/17 at 08:15; Stop 02/09/17 at 08:16; Status DC Potassium Chloride (Klor-Con) 40 meq 1X ONCE PO Last administered on 12:23; Start 02/09/17 at 12:00; Stop 02/09/17 at 12:01; Status DC Dobutamine HCl/ Dextrose 250 ml @ 0 mls/hr CONT PRN IV SEE I/O RECORD Last administered on 02/11/17 06:03; Start 02/09/17 at 08:15 Alprazolam (Xanax) 0.25 mg PRN Q6HRS PRN PO ANXIETY / AGITATION Last administered on 02/10/17 22:25; Start 02/09/17 at 11:00 Potassium Chloride (Klor-Con) 40 meq PRN Q4HRS PRN PO for K < 4.0 Last administered on 02/09/17 22:13; Start 02/09/17 at 11:15 Albumin Human 100 ml @ 100 mls/hr 1X ONCE IV Last administered on 02/10/17 12:00; Start 02/10/17 at 12:00; Stop 02/10/17 at 12:59; Status DC Albumin Human 100 ml @ 100 mls/hr 1X ONCE IV Last administered on 02/10/17 21:23; Start 02/10/17 at 20:00; Stop 02/10/17 at 20:59; Status DC Active Scripts Active Novolog (Insulin Aspart) 100 Unit/1 Ml Cartridge 25 Unit SQ TID 30 Days Metolazone 2.5 Mg Tablet 2.5 Mg PO DAILY Flomax (Tamsulosin Hcl) 0.4 Mg Cap.er.24h 0.4 Mg PO DAILY Reported Trazodone Hcl 100 Mg Tablet 100 Mg PO HS Glipizide 10 Mg Tablet 1 Tab PO BID Spironolactone 25 Mg Tablet 1 Tab PO DAILY Multi-Day Vitamins (Multivitamin) 1 Each Tablet 1 Tab PO DAILY Vitamin D3 (Cholecalciferol (Vitamin D3)) 1,000 Unit Tablet 1 Tab PO DAILY Aspirin 325 Mg Tablet 1 Tab PO DAILY Bumetanide 2 Mg Tablet 1 Tab PO DAILY Lantus Solostar (Insulin Glargine,Hum.rec.anlog) 100 Unit/1 Ml Insuln.pen 75 Unit SQ QHS Clopidogrel (Clopidogrel Bisulfate) 75 Mg Tablet 1 Tab PO DAILY Vitals/I & O Vital Sign - Last 24 Hours 02/10/17 02/10/17 02/10/17 02/10/17 11:30 11:45 14:31 16:02 Temp 98.1 98.1 Pulse 101 Resp 20 18 B/P (MAP) 91/44 (60) 118/49 (72) Pulse Ox 96 O2 Delivery Nasal Cannula Nasal Cannula Nasal Cannula Nasal Cannula O2 Flow Rate 2.0 2.0 2.0 2.0 02/10/17 02/10/17 02/10/17 02/10/17 19:00 19:39 20:00 22:54 Temp 98.5 99.5 98.5 99.5 Pulse 90 103 Resp 22 20 B/P (MAP) 141/59 (86) 119/68 (85) Pulse Ox 92 97 92 O2 Delivery Nasal Cannula Nasal Cannula Nasal Cannula Nasal Cannula O2 Flow Rate 2.0 2.0 2.0 2.0 02/11/17 02/11/17 02/11/17 02/11/17 03:00 07:25 07:37 08:00 Temp 98.3 99.0 98.3 99.0 Pulse 101 89 Resp 20 24 B/P (MAP) 140/60 (86) 97/53 (68) Pulse Ox 92 94 93 O2 Delivery Nasal Cannula Nasal Cannula Nasal Cannula Nasal Cannula O2 Flow Rate 2.0 2.0 2.0 2.0 Intake and Output 02/10/17 02/10/17 02/11/17 14:59 22:59 06:59 Intake Total 400 ml 700 ml 1000 ml Output Total 500 ml 500 ml Balance 400 ml 200 ml 500 ml OKSANA JOSEPH MD Feb 11, 2017 09:49
[2017-02-11 10:40] VITALS: BP 113/86
[2017-02-11 11:22] LABS: BASO # 0.1 x10^3/uL (0.0-0.2); BASO % 1 % (0-3); EOS % 5 % (0-3); HEMATOCRIT 29.5 % (39.0-53.0); HEMOGLOBIN 9.7 g/dL (13.0-17.5); LYMPH # 1.5 x10^3/uL (1.0-4.8); LYMPH % 15 % (24-48); MEAN CORPUSCULAR HEMOGLOBIN 29 pg (25-35); MEAN CORPUSCULAR HGB CONC 33 g/dL (31-37); MEAN CORPUSCULAR VOLUME 87 fL (79-100); MONO % 13 % (0-9); NEUT % 66 % (31-73); PLATELET COUNT 305 x10^3/uL (140-400); RED BLOOD COUNT 3.39 x10^6/uL (4.30-5.70); RED CELL DISTRIBUTION WIDTH 15.5 % (11.5-14.5)
[2017-02-11] MEDS ORDERED: MAGNESIUM SULFATE 2GM 50 ML IV PRN (11:30)
[2017-02-11 11:31] LABS: CALCIUM 9.3 mg/dL (8.5-10.1); CREATININE 3.1 mg/dL (0.7-1.3); GFR 19.7; POTASSIUM 4.4 mmol/L (3.5-5.1)
--- NOTE | 2017-02-11 11:38 | PDOC ---
SUBJECTIVE ROS CKD IV with Anasarca doing OK, still feels bloated CVS: + Orthopnea, no CP RESP: + subj SOB, no HERNANDEZ GI: no Nausea, no Vomiting : no Dysuria, no Urgency OBJECTIVE Vital Signs Vital Signs Date Time Temp Pulse Resp B/P (MAP) Pulse Ox O2 Delivery O2 Flow Rate FiO2 02/11/17 10:40 98.7 85 24 113/86 (95) 92 Nasal Cannula 2.0 98.7 I & 0 Intake and Output 02/11/17 07:00 Intake Total 2100 ml Output Total 1000 ml Balance 1100 ml Intake Oral 2100 ml Output Urine Total 1000 ml PHYSICAL EXAM Physical Exam General Appearance: Awake Alert Oriented x 3 In no Distress - drowsy - morbildy obese Eyes: VIsion Unchanged Conjunctiva Normal EN: No EN Drainage Mucous Memb. mosit Neck: no JVD no JVP Supple no Thyromegaly - thick neck CVS: S1 S2 ? Murmur No Gallop No Rub +2-3 Edema Resp: no Rales no Rhonchi no Acc. Muscle use GI: BS +ve NO Bruit Non Tender + Distended + obese : no CVA tenderness; no Suprapubic Tenderness Assessment & Plan CKD III/ Iv - [facility]. :Wt gain continues but resp status is Acceptable. He is open to HD for Uf if needed. hypoNatremia - suspect due to CHF Exac. If not better with lasix gtt then he mauy need Vaprisol but BP are labile currently; TSH is OK. US reveals fatty liver Fatty liver may explain a lot if his "Bloating" and fluid retention - GI Eval for ? Tap ascites Hypokalemia - replaced CHF/ edema / ansarca - remains on lasix gtt and Ionotropes as ordered - may need HD - HD Cath as ordered Anemia- check Iron D/w Dr Ibarra COMMENT/RELEVANT DATA Meds Current Medications Medications (Trade) Dose Ordered Sig/Cherie Start Time Stop Time Status Last Admin Dose Admin Acetaminophen (Tylenol) 650 mg PRN Q6HRS PRN 02/08/17 16:30 Albumin Human 100 ml @ 100 mls/hr 1X ONCE 02/10/17 20:00 02/10/17 20:59 DC 02/10/17 21:23 100 MLS/HR Albuterol Sulfate (Ventolin Neb Soln) 2.5 mg PRN Q4HRS PRN 02/08/17 16:30 02/10/17 04:31 2.5 MG Albuterol/ Ipratropium (Duoneb) 3 ml RTQID 02/08/17 17:00 02/11/17 07:36 3 ML Alprazolam (Xanax) 0.25 mg PRN Q6HRS PRN 02/09/17 11:00 02/10/17 22:25 0.25 MG Aspirin (Bhavya Aspirin) 325 mg DAILY 02/09/17 09:00 02/11/17 09:13 325 MG Ceftriaxone Sodium (Rocephin) 1 gm Q24H 02/08/17 20:00 02/10/17 21:24 1 GM Clopidogrel Bisulfate (Plavix) 75 mg DAILY 02/09/17 09:00 02/11/17 09:13 75 MG Dextrose (Dextrose 50%-Water Syringe) 12.5 gm PRN Q15MIN PRN 02/08/17 16:30 Dobutamine HCl/ Dextrose 250 ml @ 0 mls/hr CONT PRN 02/09/17 08:15 02/11/17 06:03 18.8 MLS/HR Docusate Sodium (Colace) 100 mg PRN DAILY PRN 02/08/17 16:30 02/11/17 09:14 100 MG Furosemide (Lasix) 40 mg 1X ONCE 02/08/17 09:30 02/08/17 09:38 DC 02/08/17 09:45 40 MG Furosemide 100 mg/ Sodium Chloride 100 ml @ 0 mls/hr CONT PRN 02/08/17 11:30 02/11/17 00:00 10 MLS/HR Glipizide (Glucotrol) 10 mg BIDBFRMEAL 02/09/17 17:00 02/11/17 09:14 10 MG Heparin Sodium (Porcine) (Heparin Sq) 5,000 unit Q8HRS 02/08/17 22:00 02/11/17 06:35 5,000 UNIT Hydralazine HCl (Apresoline Inj) 10 mg PRN Q4HRS PRN 02/08/17 16:30 Insulin Aspart (NovoLOG) 0-9 UNITS TIDWMEALS 02/08/17 17:00 02/11/17 09:18 4 UNITS Insulin Detemir (Levemir) 60 units QHS 02/08/17 21:00 02/10/17 21:29 60 UNITS Metolazone (Zaroxolyn) 2.5 mg DAILY 02/09/17 09:00 02/09/17 09:00 DC Morphine Sulfate 2 mg PRN Q2HR PRN 02/08/17 16:30 Multivitamins (Thera M Plus) 1 tab DAILY 02/09/17 09:00 02/11/17 09:13 1 TAB Nitroglycerin (Nitro-Bid Oint) 1 inch 1X ONCE 02/08/17 09:30 02/08/17 09:38 DC 02/08/17 09:45 1 INCH Non-Formulary Medication 1 tab DAILY 02/09/17 09:00 02/09/17 09:00 DC Ondansetron HCl (Zofran) 4 mg PRN Q6HRS PRN 02/08/17 16:30 Potassium Chloride (Klor-Con) 40 meq PRN Q4HRS PRN 02/09/17 11:15 02/09/17 22:13 40 MEQ Spironolactone (Aldactone) 25 mg DAILY 02/09/17 09:00 02/09/17 13:33 DC Tamsulosin HCl (Flomax) 0.4 mg DAILY 02/09/17 09:00 02/11/17 09:14 0.4 MG Tramadol HCl (Ultram) 50 mg PRN Q6HRS PRN 02/08/17 16:30 02/10/17 21:24 50 MG Trazodone HCl (Desyrel) 100 mg HS 02/08/17 21:00 02/10/17 21:24 100 MG Vitamin D (Vitamin D3) 1,000 unit DAILY 02/09/17 09:00 02/11/17 09:14 1,000 UNIT Lab Laboratory Tests Test 02/10/17 11:30 02/10/17 16:00 02/10/17 16:58 02/10/17 20:10 Glucose (Fingerstick) 195 mg/dL (70-99) 346 mg/dL (70-99) Potassium Level 4.5 mmol/L (3.5-5.1) 4.6 mmol/L (3.5-5.1) Test 02/10/17 21:28 02/11/17 03:50 02/11/17 07:27 02/11/17 07:50 Glucose (Fingerstick) 346 mg/dL (70-99) 288 mg/dL (70-99) White Blood Count 10.0 x10^3/uL (4.0-11.0) Red Blood Count 3.39 x10^6/uL (4.30-5.70) Hemoglobin 9.7 g/dL (13.0-17.5) Hematocrit 29.5 % (39.0-53.0) Mean Corpuscular Volume 87 fL (79-100) Mean Corpuscular Hemoglobin 29 pg (25-35) Mean Corpuscular Hemoglobin Concent 33 g/dL (31-37) Red Cell Distribution Width 15.5 % (11.5-14.5) Platelet Count 305 x10^3/uL (140-400) Neutrophils (%) (Auto) 66 % (31-73) Lymphocytes (%) (Auto) 15 % (24-48) Monocytes (%) (Auto) 13 % (0-9) Eosinophils (%) (Auto) 5 % (0-3) Basophils (%) (Auto) 1 % (0-3) Neutrophils # (Auto) 6.6 x10^3uL (1.8-7.7) Lymphocytes # (Auto) 1.5 x10^3/uL (1.0-4.8) Monocytes # (Auto) 1.3 x10^3/uL (0.0-1.1) Eosinophils # (Auto) 0.5 x10^3/uL (0.0-0.7) Basophils # (Auto) 0.1 x10^3/uL (0.0-0.2) Potassium Level 5.0 mmol/L (3.5-5.1) 4.4 mmol/L (3.5-5.1) Magnesium Level 2.4 mg/dL (1.8-2.4) AUGIE MONTELONGO MD Feb 11, 2017 11:38
[2017-02-11 11:39] LABS: ALBUMIN/GLOBULIN RATIO 0.6 (1.0-1.7); TOTAL PROTEIN 7.7 g/dL (6.4-8.2)
[2017-02-11 11:57] LABS: % SAT IRON 10 % (15-34); IRON,SERUM 21 ug/dL (65-175)
[2017-02-11 12:16] LABS: HCO3 ABG 23 mmol/L (21-28); PCO2 ABG 35 mmHg (35-46); PH ABG 7.44 (7.35-7.45); PO2 ABG 63 mmHg (65-108); SAT O2 ABG 93 % (92-99)
--- NOTE | 2017-02-11 12:57 | PDOC ---
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 He had 2 albumin infusions during that time. He was on a 1500ml fluid restriction at that time. Following w/ Dr. Ibarra. He is on lasix drip and dobutamine Vitals Vitals Vital Signs Date Time Temp Pulse Resp B/P (MAP) Pulse Ox O2 Delivery O2 Flow Rate FiO2 02/11/17 12:04 96 Nasal Cannula 2.0 02/11/17 10:40 98.7 85 24 113/86 (95) 98.7 Physical Exam Physical Exam Srivastava catheter in place General: Alert, Cooperative, mild distress Heart: Other (S1-S2 positive S3.) Lungs: Clear, Other Extremities: Other (2-3+ pitting edema of both lower extremities) Labs LABS Laboratory Tests Test 02/10/17 16:00 02/10/17 16:58 02/10/17 20:10 02/10/17 21:28 Potassium Level 4.5 mmol/L (3.5-5.1) 4.6 mmol/L (3.5-5.1) Glucose (Fingerstick) 346 mg/dL (70-99) 346 mg/dL (70-99) Test 02/11/17 03:50 02/11/17 07:27 02/11/17 07:50 02/11/17 12:00 White Blood Count 10.0 x10^3/uL (4.0-11.0) Red Blood Count 3.39 x10^6/uL (4.30-5.70) Hemoglobin 9.7 g/dL (13.0-17.5) Hematocrit 29.5 % (39.0-53.0) Mean Corpuscular Volume 87 fL (79-100) Mean Corpuscular Hemoglobin 29 pg (25-35) Mean Corpuscular Hemoglobin Concent 33 g/dL (31-37) Red Cell Distribution Width 15.5 % (11.5-14.5) Platelet Count 305 x10^3/uL (140-400) Neutrophils (%) (Auto) 66 % (31-73) Lymphocytes (%) (Auto) 15 % (24-48) Monocytes (%) (Auto) 13 % (0-9) Eosinophils (%) (Auto) 5 % (0-3) Basophils (%) (Auto) 1 % (0-3) Neutrophils # (Auto) 6.6 x10^3uL (1.8-7.7) Lymphocytes # (Auto) 1.5 x10^3/uL (1.0-4.8) Monocytes # (Auto) 1.3 x10^3/uL (0.0-1.1) Eosinophils # (Auto) 0.5 x10^3/uL (0.0-0.7) Basophils # (Auto) 0.1 x10^3/uL (0.0-0.2) Potassium Level 5.0 mmol/L (3.5-5.1) 4.4 mmol/L (3.5-5.1) Magnesium Level 2.4 mg/dL (1.8-2.4) Iron Level 21 ug/dL (65-175) Total Iron Binding Capacity 213 ug/dL (250-450) Iron Saturation 10 % (15-34) Ferritin 111 ng/mL (26-388) Glucose (Fingerstick) 288 mg/dL (70-99) Reticulocyte Count (auto) 1.7 % (0.5-2.5) Sodium Level 123 mmol/L (136-145) Chloride Level 88 mmol/L (98-107) Carbon Dioxide Level 22 mmol/L (21-32) Anion Gap 13 (6-14) Blood Urea Nitrogen 65 mg/dL (8-26) Creatinine 3.1 mg/dL (0.7-1.3) Estimated GFR (Cockcroft-Gault) 19.7 BUN/Creatinine Ratio 21 (6-20) Glucose Level 325 mg/dL (70-99) Calcium Level 9.3 mg/dL (8.5-10.1) Total Bilirubin 1.0 mg/dL (0.2-1.0) Aspartate Amino Transf (AST/SGOT) 35 U/L (15-37) Alanine Aminotransferase (ALT/SGPT) 28 U/L (16-63) Alkaline Phosphatase 60 U/L (46-116) Total Protein 7.7 g/dL (6.4-8.2) Albumin 3.0 g/dL (3.4-5.0) Albumin/Globulin Ratio 0.6 (1.0-1.7) O2 Saturation 93 % (92-99) Arterial Blood pH 7.44 (7.35-7.45) Arterial Blood pCO2 at Patient Temp 35 mmHg (35-46) Arterial Blood pO2 at Patient Temp 63 mmHg (65-108) Arterial Blood HCO3 23 mmol/L (21-28) Arterial Blood Base Excess -1 mmol/L (-3-3) FiO2 2 lpm nc Review of Systems Review of Systems No JVD, increased lethargy Assessment and Plan Assessmemt and Plan Problems Medical Problems: (1) CHF (congestive heart failure) Status: Acute ASSESSMENT Acute hypoxia: resp failure from acute CHF acute on chronic systolic CHF exacerbation: last known EF 25% COPD: chroinc hypercarbia DM2: ON insulin HTN History of CAD with CABG Anxiety 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 Cont home meds and lasix Continue Dvt ppx Continue cardiac monitoring Consult PT/OT Monitor daily weights Monitor ins and outs Discussed pt with RN Problems: Comment Review of Relevant I have reviewed the following items sukumar (where applicable) has been applied. Labs Laboratory Tests Test 02/09/17 15:50 02/09/17 17:24 02/09/17 20:30 02/09/17 20:44 Potassium Level 3.3 mmol/L (3.5-5.1) 3.8 mmol/L (3.5-5.1) Glucose (Fingerstick) 303 mg/dL (70-99) 329 mg/dL (70-99) Test 02/10/17 00:05 02/10/17 03:00 02/10/17 07:38 02/10/17 08:10 Potassium Level 4.0 mmol/L (3.5-5.1) 4.2 mmol/L (3.5-5.1) 4.4 mmol/L (3.5-5.1) Magnesium Level 2.3 mg/dL (1.8-2.4) Glucose (Fingerstick) 225 mg/dL (70-99) White Blood Count 10.0 x10^3/uL (4.0-11.0) Red Blood Count 3.48 x10^6/uL (4.30-5.70) Hemoglobin 9.9 g/dL (13.0-17.5) Hematocrit 29.7 % (39.0-53.0) Mean Corpuscular Volume 85 fL (79-100) Mean Corpuscular Hemoglobin 28 pg (25-35) Mean Corpuscular Hemoglobin Concent 33 g/dL (31-37) Red Cell Distribution Width 15.0 % (11.5-14.5) Platelet Count 315 x10^3/uL (140-400) Neutrophils (%) (Auto) 67 % (31-73) Lymphocytes (%) (Auto) 12 % (24-48) Monocytes (%) (Auto) 14 % (0-9) Eosinophils (%) (Auto) 5 % (0-3) Basophils (%) (Auto) 1 % (0-3) Neutrophils # (Auto) 6.8 x10^3uL (1.8-7.7) Lymphocytes # (Auto) 1.2 x10^3/uL (1.0-4.8) Monocytes # (Auto) 1.4 x10^3/uL (0.0-1.1) Eosinophils # (Auto) 0.5 x10^3/uL (0.0-0.7) Basophils # (Auto) 0.1 x10^3/uL (0.0-0.2) Sodium Level 127 mmol/L (136-145) Chloride Level 91 mmol/L (98-107) Carbon Dioxide Level 24 mmol/L (21-32) Anion Gap 12 (6-14) Blood Urea Nitrogen 66 mg/dL (8-26) Creatinine 2.8 mg/dL (0.7-1.3) Estimated GFR (Cockcroft-Gault) 22.2 Glucose Level 230 mg/dL (70-99) Calcium Level 9.0 mg/dL (8.5-10.1) Thyroid Stimulating Hormone (TSH) 0.677 uIU/mL (0.358-3.74) Test 02/10/17 11:30 02/10/17 16:00 02/10/17 16:58 02/10/17 20:10 Glucose (Fingerstick) 195 mg/dL (70-99) 346 mg/dL (70-99) Potassium Level 4.5 mmol/L (3.5-5.1) 4.6 mmol/L (3.5-5.1) Test 02/10/17 21:28 02/11/17 03:50 02/11/17 07:27 02/11/17 07:50 Glucose (Fingerstick) 346 mg/dL (70-99) 288 mg/dL (70-99) White Blood Count 10.0 x10^3/uL (4.0-11.0) Red Blood Count 3.39 x10^6/uL (4.30-5.70) Hemoglobin 9.7 g/dL (13.0-17.5) Hematocrit 29.5 % (39.0-53.0) Mean Corpuscular Volume 87 fL (79-100) Mean Corpuscular Hemoglobin 29 pg (25-35) Mean Corpuscular Hemoglobin Concent 33 g/dL (31-37) Red Cell Distribution Width 15.5 % (11.5-14.5) Platelet Count 305 x10^3/uL (140-400) Neutrophils (%) (Auto) 66 % (31-73) Lymphocytes (%) (Auto) 15 % (24-48) Monocytes (%) (Auto) 13 % (0-9) Eosinophils (%) (Auto) 5 % (0-3) Basophils (%) (Auto) 1 % (0-3) Neutrophils # (Auto) 6.6 x10^3uL (1.8-7.7) Lymphocytes # (Auto) 1.5 x10^3/uL (1.0-4.8) Monocytes # (Auto) 1.3 x10^3/uL (0.0-1.1) Eosinophils # (Auto) 0.5 x10^3/uL (0.0-0.7) Basophils # (Auto) 0.1 x10^3/uL (0.0-0.2) Potassium Level 5.0 mmol/L (3.5-5.1) 4.4 mmol/L (3.5-5.1) Magnesium Level 2.4 mg/dL (1.8-2.4) Iron Level 21 ug/dL (65-175) Total Iron Binding Capacity 213 ug/dL (250-450) Iron Saturation 10 % (15-34) Ferritin 111 ng/mL (26-388) Reticulocyte Count (auto) 1.7 % (0.5-2.5) Sodium Level 123 mmol/L (136-145) Chloride Level 88 mmol/L (98-107) Carbon Dioxide Level 22 mmol/L (21-32) Anion Gap 13 (6-14) Blood Urea Nitrogen 65 mg/dL (8-26) Creatinine 3.1 mg/dL (0.7-1.3) Estimated GFR (Cockcroft-Gault) 19.7 BUN/Creatinine Ratio 21 (6-20) Glucose Level 325 mg/dL (70-99) Calcium Level 9.3 mg/dL (8.5-10.1) Total Bilirubin 1.0 mg/dL (0.2-1.0) Aspartate Amino Transf (AST/SGOT) 35 U/L (15-37) Alanine Aminotransferase (ALT/SGPT) 28 U/L (16-63) Alkaline Phosphatase 60 U/L (46-116) Total Protein 7.7 g/dL (6.4-8.2) Albumin 3.0 g/dL (3.4-5.0) Albumin/Globulin Ratio 0.6 (1.0-1.7) Test 02/11/17 12:00 O2 Saturation 93 % (92-99) Arterial Blood pH 7.44 (7.35-7.45) Arterial Blood pCO2 at Patient Temp 35 mmHg (35-46) Arterial Blood pO2 at Patient Temp 63 mmHg (65-108) Arterial Blood HCO3 23 mmol/L (21-28) Arterial Blood Base Excess -1 mmol/L (-3-3) FiO2 2 lpm nc Laboratory Tests Test 02/10/17 16:00 02/10/17 16:58 02/10/17 20:10 02/10/17 21:28 Potassium Level 4.5 mmol/L (3.5-5.1) 4.6 mmol/L (3.5-5.1) Glucose (Fingerstick) 346 mg/dL (70-99) 346 mg/dL (70-99) Test 02/11/17 03:50 02/11/17 07:27 02/11/17 07:50 02/11/17 12:00 White Blood Count 10.0 x10^3/uL (4.0-11.0) Red Blood Count 3.39 x10^6/uL (4.30-5.70) Hemoglobin 9.7 g/dL (13.0-17.5) Hematocrit 29.5 % (39.0-53.0) Mean Corpuscular Volume 87 fL (79-100) Mean Corpuscular Hemoglobin 29 pg (25-35) Mean Corpuscular Hemoglobin Concent 33 g/dL (31-37) Red Cell Distribution Width 15.5 % (11.5-14.5) Platelet Count 305 x10^3/uL (140-400) Neutrophils (%) (Auto) 66 % (31-73) Lymphocytes (%) (Auto) 15 % (24-48) Monocytes (%) (Auto) 13 % (0-9) Eosinophils (%) (Auto) 5 % (0-3) Basophils (%) (Auto) 1 % (0-3) Neutrophils # (Auto) 6.6 x10^3uL (1.8-7.7) Lymphocytes # (Auto) 1.5 x10^3/uL (1.0-4.8) Monocytes # (Auto) 1.3 x10^3/uL (0.0-1.1) Eosinophils # (Auto) 0.5 x10^3/uL (0.0-0.7) Basophils # (Auto) 0.1 x10^3/uL (0.0-0.2) Potassium Level 5.0 mmol/L (3.5-5.1) 4.4 mmol/L (3.5-5.1) Magnesium Level 2.4 mg/dL (1.8-2.4) Iron Level 21 ug/dL (65-175) Total Iron Binding Capacity 213 ug/dL (250-450) Iron Saturation 10 % (15-34) Ferritin 111 ng/mL (26-388) Glucose (Fingerstick) 288 mg/dL (70-99) Reticulocyte Count (auto) 1.7 % (0.5-2.5) Sodium Level 123 mmol/L (136-145) Chloride Level 88 mmol/L (98-107) Carbon Dioxide Level 22 mmol/L (21-32) Anion Gap 13 (6-14) Blood Urea Nitrogen 65 mg/dL (8-26) Creatinine 3.1 mg/dL (0.7-1.3) Estimated GFR (Cockcroft-Gault) 19.7 BUN/Creatinine Ratio 21 (6-20) Glucose Level 325 mg/dL (70-99) Calcium Level 9.3 mg/dL (8.5-10.1) Total Bilirubin 1.0 mg/dL (0.2-1.0) Aspartate Amino Transf (AST/SGOT) 35 U/L (15-37) Alanine Aminotransferase (ALT/SGPT) 28 U/L (16-63) Alkaline Phosphatase 60 U/L (46-116) Total Protein 7.7 g/dL (6.4-8.2) Albumin 3.0 g/dL (3.4-5.0) Albumin/Globulin Ratio 0.6 (1.0-1.7) O2 Saturation 93 % (92-99) Arterial Blood pH 7.44 (7.35-7.45) Arterial Blood pCO2 at Patient Temp 35 mmHg (35-46) Arterial Blood pO2 at Patient Temp 63 mmHg (65-108) Arterial Blood HCO3 23 mmol/L (21-28) Arterial Blood Base Excess -1 mmol/L (-3-3) FiO2 2 lpm nc Microbiology 02/08/17 Urine Culture - Final, Complete 02/08/17 Urine Culture Result 1 (RIANNA) - Final, Complete Medications Current Medications Albuterol/ Ipratropium (Duoneb) 3 ml 1X ONCE NEB Last administered on 10:25; Start 02/08/17 at 09:30; Stop 02/08/17 at 09:38; Status DC Nitroglycerin (Nitro-Bid Oint) 1 inch 1X ONCE TP Last administered on 09:45; Start 02/08/17 at 09:30; Stop 02/08/17 at 09:38; Status DC Furosemide (Lasix) 40 mg 1X ONCE IVP Last administered on 02/08/17 09:45; Start 02/08/17 at 09:30; Stop 02/08/17 at 09:38; Status DC Ondansetron HCl (Zofran) 4 mg PRN Q8HRS PRN IV NAUSEA/VOMITING; Start at 11:30; Stop 02/09/17 at 11:29; Status DC Furosemide 100 mg/ Sodium Chloride 100 ml @ 0 mls/hr CONT PRN IV PER PROTOCOL Last administered on 02/11/17 00:00; Start 02/08/17 at 11:30 Aspirin (Bhavya Aspirin) 325 mg DAILY PO Last administered on 02/11/17 09:13; Start 02/09/17 at 09:00 Vitamin D (Vitamin D3) 1,000 unit DAILY PO Last administered on 02/11/17 09: 14; Start 02/09/17 at 09:00 Clopidogrel Bisulfate (Plavix) 75 mg DAILY PO Last administered on 02/11/17 09:13; Start 02/09/17 at 09:00 Metolazone (Zaroxolyn) 2.5 mg DAILY PO ; Start 02/09/17 at 09:00; Stop at 09:00; Status DC Spironolactone (Aldactone) 25 mg DAILY PO ; Start 02/09/17 at 09:00; Stop at 13:33; Status DC Tamsulosin HCl (Flomax) 0.4 mg DAILY PO Last administered on 02/11/17 09:14; Start 02/09/17 at 09:00 Trazodone HCl (Desyrel) 100 mg HS PO Last administered on 02/10/17 21:24; Start 02/08/17 at 21:00 Non-Formulary Medication 1 tab DAILY PO ; Start 02/09/17 at 09:00; Stop at 09:00; Status DC Glipizide (Glucotrol) 10 mg BIDBFRMEAL PO Last administered on 02/11/17 09:14 ; Start 02/09/17 at 17:00 Insulin Aspart (NovoLOG) 20 units TIDAC SQ Last administered on 02/10/17 17: 03; Start 02/08/17 at 16:30 Insulin Detemir (Levemir) 60 units QHS SQ Last administered on 02/10/17 21:29 ; Start 02/08/17 at 21:00 Multivitamins (Thera M Plus) 1 tab DAILY PO Last administered on 02/11/17 09: 13; Start 02/09/17 at 09:00 Acetaminophen (Tylenol) 650 mg PRN Q6HRS PRN PO FEVER; Start 02/08/17 at 16:30 Ondansetron HCl (Zofran) 4 mg PRN Q6HRS PRN IV NAUSEA/VOMITING; Start at 16:30 Morphine Sulfate 2 mg PRN Q2HR PRN IV PAIN; Start 02/08/17 at 16:30 Tramadol HCl (Ultram) 50 mg PRN Q6HRS PRN PO PAIN Last administered on 21:24; Start 02/08/17 at 16:30 Hydralazine HCl (Apresoline Inj) 10 mg PRN Q4HRS PRN IVP ELEVATED BP, SEE COMMENTS; Start 02/08/17 at 16:30 Docusate Sodium (Colace) 100 mg PRN DAILY PRN PO CONSTIPATION Last administered on 02/11/17 09:14; Start 02/08/17 at 16:30 Insulin Aspart (NovoLOG) 0-9 UNITS TIDWMEALS SQ Last administered on 09:18; Start 02/08/17 at 17:00 Dextrose (Dextrose 50%-Water Syringe) 12.5 gm PRN Q15MIN PRN IV SEE COMMENTS; Start 02/08/17 at 16:30 Albuterol Sulfate (Ventolin Neb Soln) 2.5 mg PRN Q4HRS PRN NEB SHORTNESS OF BREATH Last administered on 02/10/17 04:31; Start 02/08/17 at 16:30 Albuterol/ Ipratropium (Duoneb) 3 ml RTQID NEB Last administered on 02/11/17 12:03; Start 02/08/17 at 17:00 Heparin Sodium (Porcine) (Heparin Sq) 5,000 unit Q8HRS SQ Last administered on 02/11/17 06:35; Start 02/08/17 at 22:00 Alprazolam (Xanax) 0.25 mg PRN BID PRN PO ANXIETY / AGITATION Last administered on 02/08/17 17:52; Start 02/08/17 at 17:15; Stop 02/08/17 at 19 :44; Status DC Ceftriaxone Sodium 50 ml @ 100 mls/hr DAILY IV ; Start 02/09/17 at 09:00; Status UNV Alprazolam (Xanax) 0.5 mg PRN Q6HRS PRN PO ANXIETY / AGITATION Last administered on 02/09/17 08:43; Start 02/08/17 at 19:45; Stop 02/09/17 at 10 :55; Status DC Ceftriaxone Sodium (Rocephin) 1 gm Q24H IVP Last administered on 02/10/17 21: 24; Start 02/08/17 at 20:00 Potassium Chloride (Klor-Con) 40 meq 1X ONCE PO Last administered on 08:43; Start 02/09/17 at 08:15; Stop 02/09/17 at 08:16; Status DC Potassium Chloride (Klor-Con) 40 meq 1X ONCE PO Last administered on 12:23; Start 02/09/17 at 12:00; Stop 02/09/17 at 12:01; Status DC Dobutamine HCl/ Dextrose 250 ml @ 0 mls/hr CONT PRN IV SEE I/O RECORD Last administered on 02/11/17 06:03; Start 02/09/17 at 08:15 Alprazolam (Xanax) 0.25 mg PRN Q6HRS PRN PO ANXIETY / AGITATION Last administered on 02/10/17 22:25; Start 02/09/17 at 11:00 Potassium Chloride (Klor-Con) 40 meq PRN Q4HRS PRN PO for K < 4.0 Last administered on 02/09/17 22:13; Start 02/09/17 at 11:15 Albumin Human 100 ml @ 100 mls/hr 1X ONCE IV Last administered on 02/10/17 12:00; Start 02/10/17 at 12:00; Stop 02/10/17 at 12:59; Status DC Albumin Human 100 ml @ 100 mls/hr 1X ONCE IV Last administered on 02/10/17 21:23; Start 02/10/17 at 20:00; Stop 02/10/17 at 20:59; Status DC Magnesium Sulfate/ Dextrose 50 ml @ 25 mls/hr PRN DAILY PRN IV for Mag < 1.7 on am labs; Start 02/11/17 at 11:30 Active Scripts Active Novolog (Insulin Aspart) 100 Unit/1 Ml Cartridge 25 Unit SQ TID 30 Days Metolazone 2.5 Mg Tablet 2.5 Mg PO DAILY Flomax (Tamsulosin Hcl) 0.4 Mg Cap.er.24h 0.4 Mg PO DAILY Reported Trazodone Hcl 100 Mg Tablet 100 Mg PO HS Glipizide 10 Mg Tablet 1 Tab PO BID Spironolactone 25 Mg Tablet 1 Tab PO DAILY Multi-Day Vitamins (Multivitamin) 1 Each Tablet 1 Tab PO DAILY Vitamin D3 (Cholecalciferol (Vitamin D3)) 1,000 Unit Tablet 1 Tab PO DAILY Aspirin 325 Mg Tablet 1 Tab PO DAILY Bumetanide 2 Mg Tablet 1 Tab PO DAILY Lantus Solostar (Insulin Glargine,Hum.rec.anlog) 100 Unit/1 Ml Insuln.pen 75 Unit SQ QHS Clopidogrel (Clopidogrel Bisulfate) 75 Mg Tablet 1 Tab PO DAILY Vitals/I & O Vital Sign - Last 24 Hours 02/10/17 02/10/17 02/10/17 02/10/17 14:31 16:02 19:00 19:39 Temp 98.5 98.5 Pulse 90 Resp 18 22 B/P (MAP) 118/49 (72) 141/59 (86) Pulse Ox 92 97 O2 Delivery Nasal Cannula Nasal Cannula Nasal Cannula Nasal Cannula O2 Flow Rate 2.0 2.0 2.0 2.0 02/10/17 02/10/17 02/11/17 02/11/17 20:00 22:54 03:00 07:25 Temp 99.5 98.3 99.0 99.5 98.3 99.0 Pulse 103 101 89 Resp 20 20 24 B/P (MAP) 119/68 (85) 140/60 (86) 97/53 (68) Pulse Ox 92 92 94 O2 Delivery Nasal Cannula Nasal Cannula Nasal Cannula Nasal Cannula O2 Flow Rate 2.0 2.0 2.0 2.0 02/11/17 02/11/17 02/11/17 02/11/17 07:37 08:00 10:40 12:04 Temp 98.7 98.7 Pulse 85 Resp 24 B/P (MAP) 113/86 (95) Pulse Ox 93 92 96 O2 Delivery Nasal Cannula Nasal Cannula Nasal Cannula Nasal Cannula O2 Flow Rate 2.0 2.0 2.0 2.0 Intake and Output 02/10/17 02/10/17 02/11/17 15:00 23:00 07:00 Intake Total 400 ml 700 ml 1000 ml Output Total 500 ml 500 ml Balance 400 ml 200 ml 500 ml CASTLE,NIAL K III DO Feb 11, 2017 12:57
--- NOTE | 2017-02-11 13:08 | PDOC2 ---
GI CONSULT Reason For Consult: Ascites HPI: HPI: 76 y/o male admitted 02/08/17 w/ SOA, weight gain, and increased LE swelling w/ BNP >9000. Apparently weight gain is ongoing despite Lasix, dobutamine, albumin. Has felt bloated w/ abd distention as well. On abd US yesterday, hepatomegaly, fatty liver and hepatic nodularity, possible cirrhosis. 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 Denies previous liver history. Occasional nausea after eating, not bothersome lately. Decreased appetite w/ swelling. Feels bloated. Occasional constipation improved w/ MoM. Denies reflux/heartburn, dysphagia, vomiting, abd pain, diarrhea, hematochezia, melena. On Plavix and ASA, denies NSAIDs. H/o blood transfusion, tattoo. No GB or pancreas history. No previous EGD. Colonoscopy in 2014 w/ diverticulosis. 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 PMH: PMH: CAD, COPD, HTN, PVD, CHF, A Fib, MN, CVA, DM, CKD, BPH, anxiety, cataract extraction, tonsillectomy, pacemaker, arthroscopy, CABG FH: Family History: No pertinent hx Social History: Smoke: No ALCOHOL: none Drugs: None ROS: GEN: Denies fevers, chills, sweats HEENT: Denies blurred vision, sore throat CV: Denies chest pain RESP: +SOA GI: Per HPI : Denies hematuria, dysuria ENDO: +weight gain NEURO: Denies confusion, dizziness MSK: +swelling SKIN: Denies jaundice, pruritus Vitals: Vitals: Vital Signs Date Time Temp Pulse Resp B/P (MAP) Pulse Ox O2 Delivery O2 Flow Rate FiO2 02/11/17 12:04 96 Nasal Cannula 2.0 02/11/17 10:40 98.7 85 24 113/86 (95) 98.7 Labs: Labs: Laboratory Tests Test 02/10/17 16:00 02/10/17 16:58 02/10/17 20:10 02/10/17 21:28 Potassium Level 4.5 mmol/L (3.5-5.1) 4.6 mmol/L (3.5-5.1) Glucose (Fingerstick) 346 mg/dL (70-99) 346 mg/dL (70-99) Test 02/11/17 03:50 02/11/17 07:27 02/11/17 07:50 02/11/17 12:00 White Blood Count 10.0 x10^3/uL (4.0-11.0) Red Blood Count 3.39 x10^6/uL (4.30-5.70) Hemoglobin 9.7 g/dL (13.0-17.5) Hematocrit 29.5 % (39.0-53.0) Mean Corpuscular Volume 87 fL (79-100) Mean Corpuscular Hemoglobin 29 pg (25-35) Mean Corpuscular Hemoglobin Concent 33 g/dL (31-37) Red Cell Distribution Width 15.5 % (11.5-14.5) Platelet Count 305 x10^3/uL (140-400) Neutrophils (%) (Auto) 66 % (31-73) Lymphocytes (%) (Auto) 15 % (24-48) Monocytes (%) (Auto) 13 % (0-9) Eosinophils (%) (Auto) 5 % (0-3) Basophils (%) (Auto) 1 % (0-3) Neutrophils # (Auto) 6.6 x10^3uL (1.8-7.7) Lymphocytes # (Auto) 1.5 x10^3/uL (1.0-4.8) Monocytes # (Auto) 1.3 x10^3/uL (0.0-1.1) Eosinophils # (Auto) 0.5 x10^3/uL (0.0-0.7) Basophils # (Auto) 0.1 x10^3/uL (0.0-0.2) Potassium Level 5.0 mmol/L (3.5-5.1) 4.4 mmol/L (3.5-5.1) Magnesium Level 2.4 mg/dL (1.8-2.4) Iron Level 21 ug/dL (65-175) Total Iron Binding Capacity 213 ug/dL (250-450) Iron Saturation 10 % (15-34) Ferritin 111 ng/mL (26-388) Glucose (Fingerstick) 288 mg/dL (70-99) Reticulocyte Count (auto) 1.7 % (0.5-2.5) Sodium Level 123 mmol/L (136-145) Chloride Level 88 mmol/L (98-107) Carbon Dioxide Level 22 mmol/L (21-32) Anion Gap 13 (6-14) Blood Urea Nitrogen 65 mg/dL (8-26) Creatinine 3.1 mg/dL (0.7-1.3) Estimated GFR (Cockcroft-Gault) 19.7 BUN/Creatinine Ratio 21 (6-20) Glucose Level 325 mg/dL (70-99) Calcium Level 9.3 mg/dL (8.5-10.1) Total Bilirubin 1.0 mg/dL (0.2-1.0) Aspartate Amino Transf (AST/SGOT) 35 U/L (15-37) Alanine Aminotransferase (ALT/SGPT) 28 U/L (16-63) Alkaline Phosphatase 60 U/L (46-116) Total Protein 7.7 g/dL (6.4-8.2) Albumin 3.0 g/dL (3.4-5.0) Albumin/Globulin Ratio 0.6 (1.0-1.7) O2 Saturation 93 % (92-99) Arterial Blood pH 7.44 (7.35-7.45) Arterial Blood pCO2 at Patient Temp 35 mmHg (35-46) Arterial Blood pO2 at Patient Temp 63 mmHg (65-108) Arterial Blood HCO3 23 mmol/L (21-28) Arterial Blood Base Excess -1 mmol/L (-3-3) FiO2 2 lpm nc Allergies: Coded Allergies: bacitracin (Verified Allergy, Intermediate, 05/07/14) neomycin (Verified Allergy, Intermediate, 05/07/14) polymyxin B (Verified Allergy, Intermediate, 05/07/14) Medications: Current Medications Medications (Trade) Dose Ordered Sig/Cherie Route PRN Reason Start Time Stop Time Status Last Admin Dose Admin Albumin Human 100 ml @ 100 mls/hr 1X ONCE IV 02/10/17 20:00 02/10/17 20:59 DC 02/10/17 21:23 Imaging: Imaging: CXR IMPRESSION: Mild congestive heart failure. Abd US Hyperechogenicity of the hepatic parenchyma is consistent with diffuse hepatic steatosis. Sensitivity for focal lesions is decreased in this setting, but none are seen. The liver is enlarged spanning 20 cm. There appears to mild hepatic surface nodularity. The spleen measures 13 cm. The gallbladder is unremarkable without evidence of stones, wall thickening or pericholecystic fluid. There is no sonographic Cohen sign. The common duct measures 6 mm. The visualized portions of the head and body of the pancreas reveal no abnormality. The right kidney measures 10.4 cm. Cortical thickness and echogenicity are preserved. There is no hydronephrosis. The left kidney measures 10.8 cm. Cortical thickness and echogenicity are preserved. There is no hydronephrosis. The visualized portions of the abdominal aorta and inferior vena cava are grossly patent and normal in caliber. There is no clear ascites. IMPRESSION: 1. Mild hepatic surface nodularity is consistent with cirrhotic change. Diffuse hepatic steatosis and hepatomegaly. 2. Unremarkable examination of the kidneys. No hydronephrosis. PE: GEN: NAD, up to chair HEENT: Atraumatic, PERRL LUNGS: clear, nasal cannula HEART: RRR ABD: BS+, non-tender, distended EXTREMITY: BLE edema, tight SKIN: LE wrapped NEURO/PSYCH: A & O 3 A/P: A/P: CHF, CKD, LE edema, weight gain Abd distention, decreased appetite, possible cirrhosis -h/o heavy alcohol use, sober for years -no previous EGD -normal INR, LFTs WNL CRC screen -reports colonoscopy in 2014 CAD, h/o CVA, on Plavix and ASA Anemia -iron studies low -- Check Hepatitis panel and AFP. D/w Dr. Bermudez - will ask for therapeutic paracentesis (but is on Plavix). 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 KENAN REICH Feb 11, 2017 13:08
[2017-02-11 15:00] VITALS: BP 92/47
[2017-02-11 18:45] VITALS: BP 123/60
[2017-02-11] MEDS: FUROSEMIDE INJ 100 MG in IV NORMAL SALINE 100ML 100 ML IV PRN ×3 (19:43)
[2017-02-11] MEDS: traZODone 100 MG TABLET. PO SCH (21:00)
[2017-02-11] MEDS: CEFPODOXIME PROXETIL 100 MG TABLET. PO SCH (21:02)
[2017-02-11] MEDS: INSULIN DETEMIR 300 UNITS/3 ML INSULN.PEN. SQ SCH (21:04)
[2017-02-11 23:14] VITALS: BP 103/56
[2017-02-12 03:03] VITALS: BP 111/44
[2017-02-12 05:55] LABS: ALBUMIN 2.9 g/dL (3.4-5.0); CALCIUM 9.7 mg/dL (8.5-10.1); CREATININE 3.4 mg/dL (0.7-1.3); GFR 17.7; MAGNESIUM 2.3 mg/dL (1.8-2.4); PHOSPHORUS 3.6 mg/dL (2.6-4.7); POTASSIUM 5.1 mmol/L (3.5-5.1)
[2017-02-12] MEDS: IPRATRPIUM/ALBUTEROL 0.5/2.5MG 3 ML NEBU. NEB SCH ×4 (07:14→19:26)
[2017-02-12 07:25] VITALS: BP 109/53
[2017-02-12] MEDS: INSULIN ASPART 300 UNITS/3 ML INSULN.PEN SQ SCH ×6 (07:30→18:17)
[2017-02-12 08:32] LABS: INR 1.2 (0.8-1.1)
[2017-02-12] MEDS: FUROSEMIDE INJ 100 MG in IV NORMAL SALINE 100ML 100 ML IV PRN (08:37)
[2017-02-12] MEDS: CHOLECALCIFEROL (VITAMIN D3) 1,000 UNIT TABLET PO SCH (09:01)
[2017-02-12] MEDS: MULTIVITAMIN with MINERAL TABLET. PO SCH (09:01)
[2017-02-12] MEDS: glipiZIDE 5 MG TABLET PO SCH ×2 (09:01→18:01)
[2017-02-12] MEDS: CEFPODOXIME PROXETIL 100 MG TABLET. PO SCH ×2 (09:01→21:27)
[2017-02-12] MEDS: TAMSULOSIN 0.4 MG CAP.ER.24H. PO SCH (09:01)
--- NOTE | 2017-02-12 09:05 | PDOC ---
SUBJECTIVE ROS chantel/ atn not feeling much better since admit,m UO is dec, CVS: + Orthopnea, no CP RESP: + SOB, ? HERNANDEZ + Cough with phlegm GI: no Nausea, no Vomiting; dec apetite : no Dysuria, no Urgency OBJECTIVE Vital Signs Vital Signs Date Time Temp Pulse Resp B/P (MAP) Pulse Ox O2 Delivery O2 Flow Rate FiO2 02/12/17 07:25 96.6 105 18 109/53 (71) 93 Nasal Cannula 2.0 96.6 I & 0 Intake and Output 02/12/17 07:00 Intake Total 1440 ml Output Total 700 ml Balance 740 ml Intake Oral 1440 ml Output Urine Total 700 ml PHYSICAL EXAM Physical Exam General Appearance: Awake Alert Oriented x 3 In no Distress; morbildy obese Eyes: VIsion Unchanged Conjunctiva Normal EN: No EN Drainage Mucous Memb. moist Neck: no JVD no JVP Supple no Thyromegaly - thick neck CVS: S1 S2 ? Murmur No Gallop No Rub +2-3 Edema Resp: no Rales no Rhonchi no Acc. Muscle use GI: BS +ve NO Bruit Non Tender + Distended + obese : no CVA tenderness; no Suprapubic Tenderness Assessment & Plan CHANTEL/ ? 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 Tap ascites CHF: does not seem to be responding to lasix gtt and Dobutamine, he is ready to start HD - HD Cath as ordered Anemia- IV Iron + EPO COMMENT/RELEVANT DATA Meds Current Medications Medications (Trade) Dose Ordered Sig/Cherie Start Time Stop Time Status Last Admin Dose Admin Acetaminophen (Tylenol) 650 mg PRN Q6HRS PRN 02/08/17 16:30 Albumin Human 100 ml @ 100 mls/hr 1X ONCE 02/10/17 20:00 02/10/17 20:59 DC 02/10/17 21:23 100 MLS/HR Albuterol Sulfate (Ventolin Neb Soln) 2.5 mg PRN Q4HRS PRN 02/08/17 16:30 02/10/17 04:31 2.5 MG Albuterol/ Ipratropium (Duoneb) 3 ml RTQID 02/08/17 17:00 02/12/17 07:14 3 ML Alprazolam (Xanax) 0.25 mg PRN Q6HRS PRN 02/09/17 11:00 02/10/17 22:25 0.25 MG Aspirin (Bhavya Aspirin) 325 mg DAILY 02/09/17 09:00 02/11/17 09:13 325 MG Cefpodoxime Proxetil (Vantin) 100 mg BID 02/11/17 21:00 02/11/17 21:02 100 MG Ceftriaxone Sodium (Rocephin) 1 gm Q24H 02/08/17 20:00 02/11/17 15:00 DC 02/10/17 21:24 1 GM Clopidogrel Bisulfate (Plavix) 75 mg DAILY 02/09/17 09:00 02/11/17 09:13 75 MG Dextrose (Dextrose 50%-Water Syringe) 12.5 gm PRN Q15MIN PRN 02/08/17 16:30 Dobutamine HCl/ Dextrose 250 ml @ 0 mls/hr CONT PRN 02/09/17 08:15 02/11/17 19:43 18.8 MLS/HR Docusate Sodium (Colace) 100 mg PRN DAILY PRN 02/08/17 16:30 02/11/17 09:14 100 MG Furosemide (Lasix) 40 mg 1X ONCE 02/08/17 09:30 02/08/17 09:38 DC 02/08/17 09:45 40 MG Furosemide 100 mg/ Sodium Chloride 100 ml @ 0 mls/hr CONT PRN 02/08/17 11:30 02/12/17 08:37 10 MLS/HR Glipizide (Glucotrol) 10 mg BIDBFRMEAL 02/09/17 17:00 02/11/17 17:57 10 MG Heparin Sodium (Porcine) (Heparin Sq) 5,000 unit Q8HRS 02/08/17 22:00 02/11/17 06:35 5,000 UNIT Hydralazine HCl (Apresoline Inj) 10 mg PRN Q4HRS PRN 02/08/17 16:30 Insulin Aspart (NovoLOG) 0-9 UNITS TIDWMEALS 02/08/17 17:00 02/11/17 18:02 5 UNITS Insulin Detemir (Levemir) 60 units QHS 02/08/17 21:00 02/11/17 21:04 60 UNITS Magnesium Sulfate/ Dextrose 50 ml @ 25 mls/hr PRN DAILY PRN 02/11/17 11:30 Metolazone (Zaroxolyn) 2.5 mg DAILY 02/09/17 09:00 02/09/17 09:00 DC Morphine Sulfate 2 mg PRN Q2HR PRN 02/08/17 16:30 Multivitamins (Thera M Plus) 1 tab DAILY 02/09/17 09:00 02/11/17 09:13 1 TAB Nitroglycerin (Nitro-Bid Oint) 1 inch 1X ONCE 02/08/17 09:30 02/08/17 09:38 DC 02/08/17 09:45 1 INCH Non-Formulary Medication 1 tab DAILY 02/09/17 09:00 02/09/17 09:00 DC Ondansetron HCl (Zofran) 4 mg PRN Q6HRS PRN 02/08/17 16:30 Potassium Chloride (Klor-Con) 40 meq PRN Q4HRS PRN 02/09/17 11:15 02/09/17 22:13 40 MEQ Spironolactone (Aldactone) 25 mg DAILY 02/09/17 09:00 02/09/17 13:33 DC Tamsulosin HCl (Flomax) 0.4 mg DAILY 02/09/17 09:00 02/11/17 09:14 0.4 MG Tramadol HCl (Ultram) 50 mg PRN Q6HRS PRN 02/08/17 16:30 02/10/17 21:24 50 MG Trazodone HCl (Desyrel) 100 mg HS 02/08/17 21:00 02/10/17 21:24 100 MG Vitamin D (Vitamin D3) 1,000 unit DAILY 02/09/17 09:00 02/11/17 09:14 1,000 UNIT Lab Laboratory Tests Test 02/11/17 12:00 02/11/17 13:12 02/11/17 16:33 02/12/17 04:10 O2 Saturation 93 % (92-99) Arterial Blood pH 7.44 (7.35-7.45) Arterial Blood pCO2 at Patient Temp 35 mmHg (35-46) Arterial Blood pO2 at Patient Temp 63 mmHg (65-108) Arterial Blood HCO3 23 mmol/L (21-28) Arterial Blood Base Excess -1 mmol/L (-3-3) FiO2 2 lpm nc Glucose (Fingerstick) 254 mg/dL (70-99) 246 mg/dL (70-99) Hemoglobin 9.6 g/dL (13.0-17.5) Sodium Level 123 mmol/L (136-145) Potassium Level 5.1 mmol/L (3.5-5.1) Chloride Level 88 mmol/L (98-107) Carbon Dioxide Level 24 mmol/L (21-32) Anion Gap 11 (6-14) Blood Urea Nitrogen 68 mg/dL (8-26) Creatinine 3.4 mg/dL (0.7-1.3) Estimated GFR (Cockcroft-Gault) 17.7 Glucose Level 303 mg/dL (70-99) Calcium Level 9.7 mg/dL (8.5-10.1) Phosphorus Level 3.6 mg/dL (2.6-4.7) Magnesium Level 2.3 mg/dL (1.8-2.4) Albumin 2.9 g/dL (3.4-5.0) Test 02/12/17 07:24 02/12/17 08:15 Glucose (Fingerstick) 269 mg/dL (70-99) Prothrombin Time 14.0 SEC (11.7-14.0) Prothromb Time International Ratio 1.2 (0.8-1.1) AUGIE MONTELONGO MD Feb 12, 2017 09:05
[2017-02-12] MEDS: ALPRAZolam 0.25 MG TABLET PO PRN (09:30)
--- NOTE | 2017-02-12 10:48 | PDOC ---
PROGRESS NOTES Subjective Subjective Patient still not feeling well this AM. Continues to have weight gain s/p Lasix , dobutamine, and albumin. Patient is up ~14lbs in the last 3 days. Patient c/o increased edema and pain in LE b/l. Denies any chest pain or discomfort. Reports SOB. Patient had chest x-ray this AM that showed cardiomegaly. Plans to undergo HD and tunnel catheter today. No additional concerns at this time. Objective Objective Vital Signs Date Time Temp Pulse Resp B/P (MAP) Pulse Ox O2 Delivery O2 Flow Rate FiO2 02/12/17 08:00 Nasal Cannula 2.0 02/12/17 07:25 96.6 105 18 109/53 (71) 93 96.6 Intake and Output 02/12/17 06:59 Intake Total 1440 ml Output Total 700 ml Balance 740 ml Intake Oral 1440 ml Output Urine Total 700 ml CXR Impression: Cardiomegaly, central vascular congestion, interstitial thickening. Findings most likely reflect distal heart failure. The appearance is similar to prior study. Assessment Assessment Problems Medical Problems: (1) CHF (congestive heart failure) Status: Acute Plan Plan of Care CHF- Patient is s/p IV Lasix, Dobutamine, and Albumin x 2. Still with decreased urinary output. Continues to gain weight and appears to be deteriorating. Increased SOB. Chest Imaging performed this AM for increased SOB.Imaging similar to prior study and showed cardiomegaly, central vascular congestion, interstitial thickening. Findings most likely reflect distal heart failure. Nephrology following. Will undergo HD and Tunnel Catheter today. Will reassess cardiac condition s/p HD. Continue current cardiac medication regimen. Continue strict monitoring of daily weight and in/outs. CAD with h/o CVA- Continue Plavix, ASA Comment Review of Relevant I have reviewed the following items sukumar (where applicable) has been applied. Labs Laboratory Tests Test 02/10/17 11:30 02/10/17 16:00 02/10/17 16:58 02/10/17 20:10 Glucose (Fingerstick) 195 mg/dL (70-99) 346 mg/dL (70-99) Potassium Level 4.5 mmol/L (3.5-5.1) 4.6 mmol/L (3.5-5.1) Test 02/10/17 21:28 02/11/17 03:50 02/11/17 07:27 02/11/17 07:50 Glucose (Fingerstick) 346 mg/dL (70-99) 288 mg/dL (70-99) White Blood Count 10.0 x10^3/uL (4.0-11.0) Red Blood Count 3.39 x10^6/uL (4.30-5.70) Hemoglobin 9.7 g/dL (13.0-17.5) Hematocrit 29.5 % (39.0-53.0) Mean Corpuscular Volume 87 fL (79-100) Mean Corpuscular Hemoglobin 29 pg (25-35) Mean Corpuscular Hemoglobin Concent 33 g/dL (31-37) Red Cell Distribution Width 15.5 % (11.5-14.5) Platelet Count 305 x10^3/uL (140-400) Neutrophils (%) (Auto) 66 % (31-73) Lymphocytes (%) (Auto) 15 % (24-48) Monocytes (%) (Auto) 13 % (0-9) Eosinophils (%) (Auto) 5 % (0-3) Basophils (%) (Auto) 1 % (0-3) Neutrophils # (Auto) 6.6 x10^3uL (1.8-7.7) Lymphocytes # (Auto) 1.5 x10^3/uL (1.0-4.8) Monocytes # (Auto) 1.3 x10^3/uL (0.0-1.1) Eosinophils # (Auto) 0.5 x10^3/uL (0.0-0.7) Basophils # (Auto) 0.1 x10^3/uL (0.0-0.2) Potassium Level 5.0 mmol/L (3.5-5.1) 4.4 mmol/L (3.5-5.1) Magnesium Level 2.4 mg/dL (1.8-2.4) Iron Level 21 ug/dL (65-175) Total Iron Binding Capacity 213 ug/dL (250-450) Iron Saturation 10 % (15-34) Ferritin 111 ng/mL (26-388) Tumor Marker Alpha Fetoprotein 1.4 ng/mL (0.0-8.3) Reticulocyte Count (auto) 1.7 % (0.5-2.5) Sodium Level 123 mmol/L (136-145) Chloride Level 88 mmol/L (98-107) Carbon Dioxide Level 22 mmol/L (21-32) Anion Gap 13 (6-14) Blood Urea Nitrogen 65 mg/dL (8-26) Creatinine 3.1 mg/dL (0.7-1.3) Estimated GFR (Cockcroft-Gault) 19.7 BUN/Creatinine Ratio 21 (6-20) Glucose Level 325 mg/dL (70-99) Calcium Level 9.3 mg/dL (8.5-10.1) Total Bilirubin 1.0 mg/dL (0.2-1.0) Aspartate Amino Transf (AST/SGOT) 35 U/L (15-37) Alanine Aminotransferase (ALT/SGPT) 28 U/L (16-63) Alkaline Phosphatase 60 U/L (46-116) Total Protein 7.7 g/dL (6.4-8.2) Albumin 3.0 g/dL (3.4-5.0) Albumin/Globulin Ratio 0.6 (1.0-1.7) Test 02/11/17 12:00 02/11/17 13:12 02/11/17 16:33 02/12/17 04:10 O2 Saturation 93 % (92-99) Arterial Blood pH 7.44 (7.35-7.45) Arterial Blood pCO2 at Patient Temp 35 mmHg (35-46) Arterial Blood pO2 at Patient Temp 63 mmHg (65-108) Arterial Blood HCO3 23 mmol/L (21-28) Arterial Blood Base Excess -1 mmol/L (-3-3) FiO2 2 lpm nc Glucose (Fingerstick) 254 mg/dL (70-99) 246 mg/dL (70-99) Hemoglobin 9.6 g/dL (13.0-17.5) Sodium Level 123 mmol/L (136-145) Potassium Level 5.1 mmol/L (3.5-5.1) Chloride Level 88 mmol/L (98-107) Carbon Dioxide Level 24 mmol/L (21-32) Anion Gap 11 (6-14) Blood Urea Nitrogen 68 mg/dL (8-26) Creatinine 3.4 mg/dL (0.7-1.3) Estimated GFR (Cockcroft-Gault) 17.7 Glucose Level 303 mg/dL (70-99) Calcium Level 9.7 mg/dL (8.5-10.1) Phosphorus Level 3.6 mg/dL (2.6-4.7) Magnesium Level 2.3 mg/dL (1.8-2.4) Albumin 2.9 g/dL (3.4-5.0) Test 02/12/17 07:24 02/12/17 08:15 Glucose (Fingerstick) 269 mg/dL (70-99) Prothrombin Time 14.0 SEC (11.7-14.0) Prothromb Time International Ratio 1.2 (0.8-1.1) Laboratory Tests Test 02/11/17 12:00 02/11/17 13:12 02/11/17 16:33 02/12/17 04:10 O2 Saturation 93 % (92-99) Arterial Blood pH 7.44 (7.35-7.45) Arterial Blood pCO2 at Patient Temp 35 mmHg (35-46) Arterial Blood pO2 at Patient Temp 63 mmHg (65-108) Arterial Blood HCO3 23 mmol/L (21-28) Arterial Blood Base Excess -1 mmol/L (-3-3) FiO2 2 lpm nc Glucose (Fingerstick) 254 mg/dL (70-99) 246 mg/dL (70-99) Hemoglobin 9.6 g/dL (13.0-17.5) Sodium Level 123 mmol/L (136-145) Potassium Level 5.1 mmol/L (3.5-5.1) Chloride Level 88 mmol/L (98-107) Carbon Dioxide Level 24 mmol/L (21-32) Anion Gap 11 (6-14) Blood Urea Nitrogen 68 mg/dL (8-26) Creatinine 3.4 mg/dL (0.7-1.3) Estimated GFR (Cockcroft-Gault) 17.7 Glucose Level 303 mg/dL (70-99) Calcium Level 9.7 mg/dL (8.5-10.1) Phosphorus Level 3.6 mg/dL (2.6-4.7) Magnesium Level 2.3 mg/dL (1.8-2.4) Albumin 2.9 g/dL (3.4-5.0) Test 02/12/17 07:24 02/12/17 08:15 Glucose (Fingerstick) 269 mg/dL (70-99) Prothrombin Time 14.0 SEC (11.7-14.0) Prothromb Time International Ratio 1.2 (0.8-1.1) Microbiology 02/08/17 Urine Culture - Final, Complete 02/08/17 Urine Culture Result 1 (RIANNA) - Final, Complete Medications Current Medications Albuterol/ Ipratropium (Duoneb) 3 ml 1X ONCE NEB Last administered on 10:25; Start 02/08/17 at 09:30; Stop 02/08/17 at 09:38; Status DC Nitroglycerin (Nitro-Bid Oint) 1 inch 1X ONCE TP Last administered on 09:45; Start 02/08/17 at 09:30; Stop 02/08/17 at 09:38; Status DC Furosemide (Lasix) 40 mg 1X ONCE IVP Last administered on 02/08/17 09:45; Start 02/08/17 at 09:30; Stop 02/08/17 at 09:38; Status DC Ondansetron HCl (Zofran) 4 mg PRN Q8HRS PRN IV NAUSEA/VOMITING; Start at 11:30; Stop 02/09/17 at 11:29; Status DC Furosemide 100 mg/ Sodium Chloride 100 ml @ 0 mls/hr CONT PRN IV PER PROTOCOL Last administered on 02/12/17 08:37; Start 02/08/17 at 11:30; Stop 02/12/17 at 09:53; Status DC Aspirin (Bhavya Aspirin) 325 mg DAILY PO Last administered on 02/11/17 09:13; Start 02/09/17 at 09:00 Vitamin D (Vitamin D3) 1,000 unit DAILY PO Last administered on 02/12/17 09: 01; Start 02/09/17 at 09:00 Clopidogrel Bisulfate (Plavix) 75 mg DAILY PO Last administered on 02/11/17 09:13; Start 02/09/17 at 09:00 Metolazone (Zaroxolyn) 2.5 mg DAILY PO ; Start 02/09/17 at 09:00; Stop at 09:00; Status DC Spironolactone (Aldactone) 25 mg DAILY PO ; Start 02/09/17 at 09:00; Stop at 13:33; Status DC Tamsulosin HCl (Flomax) 0.4 mg DAILY PO Last administered on 02/12/17 09:01; Start 02/09/17 at 09:00 Trazodone HCl (Desyrel) 100 mg HS PO Last administered on 02/10/17 21:24; Start 02/08/17 at 21:00 Non-Formulary Medication 1 tab DAILY PO ; Start 02/09/17 at 09:00; Stop at 09:00; Status DC Glipizide (Glucotrol) 10 mg BIDBFRMEAL PO Last administered on 02/12/17 09:01 ; Start 02/09/17 at 17:00 Insulin Aspart (NovoLOG) 20 units TIDAC SQ Last administered on 02/11/17 18: 02; Start 02/08/17 at 16:30 Insulin Detemir (Levemir) 60 units QHS SQ Last administered on 02/11/17 21:04 ; Start 02/08/17 at 21:00 Multivitamins (Thera M Plus) 1 tab DAILY PO Last administered on 02/12/17 09: 01; Start 02/09/17 at 09:00 Acetaminophen (Tylenol) 650 mg PRN Q6HRS PRN PO FEVER; Start 02/08/17 at 16:30 Ondansetron HCl (Zofran) 4 mg PRN Q6HRS PRN IV NAUSEA/VOMITING; Start at 16:30 Morphine Sulfate 2 mg PRN Q2HR PRN IV PAIN; Start 02/08/17 at 16:30 Tramadol HCl (Ultram) 50 mg PRN Q6HRS PRN PO PAIN Last administered on 21:24; Start 02/08/17 at 16:30 Hydralazine HCl (Apresoline Inj) 10 mg PRN Q4HRS PRN IVP ELEVATED BP, SEE COMMENTS; Start 02/08/17 at 16:30 Docusate Sodium (Colace) 100 mg PRN DAILY PRN PO CONSTIPATION Last administered on 02/11/17 09:14; Start 02/08/17 at 16:30 Insulin Aspart (NovoLOG) 0-9 UNITS TIDWMEALS SQ Last administered on 11/21/ 17at 09:09; Start 02/08/17 at 17:00 Dextrose (Dextrose 50%-Water Syringe) 12.5 gm PRN Q15MIN PRN IV SEE COMMENTS; Start 02/08/17 at 16:30 Albuterol Sulfate (Ventolin Neb Soln) 2.5 mg PRN Q4HRS PRN NEB SHORTNESS OF BREATH Last administered on 02/10/17 04:31; Start 02/08/17 at 16:30 Albuterol/ Ipratropium (Duoneb) 3 ml RTQID NEB Last administered on 02/12/17 07:14; Start 02/08/17 at 17:00 Heparin Sodium (Porcine) (Heparin Sq) 5,000 unit Q8HRS SQ Last administered on 02/11/17 06:35; Start 02/08/17 at 22:00 Alprazolam (Xanax) 0.25 mg PRN BID PRN PO ANXIETY / AGITATION Last administered on 02/08/17 17:52; Start 02/08/17 at 17:15; Stop 02/08/17 at 19 :44; Status DC Ceftriaxone Sodium 50 ml @ 100 mls/hr DAILY IV ; Start 02/09/17 at 09:00; Status UNV Alprazolam (Xanax) 0.5 mg PRN Q6HRS PRN PO ANXIETY / AGITATION Last administered on 02/09/17 08:43; Start 02/08/17 at 19:45; Stop 02/09/17 at 10 :55; Status DC Ceftriaxone Sodium (Rocephin) 1 gm Q24H IVP Last administered on 02/10/17 21: 24; Start 02/08/17 at 20:00; Stop 02/11/17 at 15:00; Status DC Potassium Chloride (Klor-Con) 40 meq 1X ONCE PO Last administered on 08:43; Start 02/09/17 at 08:15; Stop 02/09/17 at 08:16; Status DC Potassium Chloride (Klor-Con) 40 meq 1X ONCE PO Last administered on 12:23; Start 02/09/17 at 12:00; Stop 02/09/17 at 12:01; Status DC Dobutamine HCl/ Dextrose 250 ml @ 0 mls/hr CONT PRN IV SEE I/O RECORD Last administered on 02/11/17 19:43; Start 02/09/17 at 08:15; Stop 02/12/17 at 09 :53; Status DC Alprazolam (Xanax) 0.25 mg PRN Q6HRS PRN PO ANXIETY / AGITATION Last administered on 02/12/17 09:30; Start 02/09/17 at 11:00 Potassium Chloride (Klor-Con) 40 meq PRN Q4HRS PRN PO for K < 4.0 Last administered on 02/09/17 22:13; Start 02/09/17 at 11:15 Albumin Human 100 ml @ 100 mls/hr 1X ONCE IV Last administered on 02/10/17 12:00; Start 02/10/17 at 12:00; Stop 02/10/17 at 12:59; Status DC Albumin Human 100 ml @ 100 mls/hr 1X ONCE IV Last administered on 02/10/17 21:23; Start 02/10/17 at 20:00; Stop 02/10/17 at 20:59; Status DC Magnesium Sulfate/ Dextrose 50 ml @ 25 mls/hr PRN DAILY PRN IV for Mag < 1.7 on am labs; Start 02/11/17 at 11:30 Cefpodoxime Proxetil (Vantin) 100 mg BID PO Last administered on 02/12/17 09: 01; Start 02/11/17 at 21:00 Active Scripts Active Novolog (Insulin Aspart) 100 Unit/1 Ml Cartridge 25 Unit SQ TID 30 Days Metolazone 2.5 Mg Tablet 2.5 Mg PO DAILY Flomax (Tamsulosin Hcl) 0.4 Mg Cap.er.24h 0.4 Mg PO DAILY Reported Trazodone Hcl 100 Mg Tablet 100 Mg PO HS Glipizide 10 Mg Tablet 1 Tab PO BID Spironolactone 25 Mg Tablet 1 Tab PO DAILY Multi-Day Vitamins (Multivitamin) 1 Each Tablet 1 Tab PO DAILY Vitamin D3 (Cholecalciferol (Vitamin D3)) 1,000 Unit Tablet 1 Tab PO DAILY Aspirin 325 Mg Tablet 1 Tab PO DAILY Bumetanide 2 Mg Tablet 1 Tab PO DAILY Lantus Solostar (Insulin Glargine,Hum.rec.anlog) 100 Unit/1 Ml Insuln.pen 75 Unit SQ QHS Clopidogrel (Clopidogrel Bisulfate) 75 Mg Tablet 1 Tab PO DAILY Vitals/I & O Vital Sign - Last 24 Hours 02/11/17 02/11/17 02/11/17 02/11/17 12:04 15:00 17:04 18:45 Temp 98.3 98.4 98.3 98.4 Pulse 107 78 Resp 22 20 B/P (MAP) 92/47 (62) 123/60 (81) Pulse Ox 96 92 91 O2 Delivery Nasal Cannula Nasal Cannula Nasal Cannula Nasal Cannula O2 Flow Rate 2.0 2.0 2.0 2.0 02/11/17 02/11/17 02/11/17 02/12/17 19:45 20:00 23:14 03:03 Temp 97.9 98.7 97.9 98.7 Pulse 88 85 Resp 20 20 B/P (MAP) 103/56 (72) 111/44 (66) Pulse Ox 98 94 94 O2 Delivery Nasal Cannula Nasal Cannula Nasal Cannula Nasal Cannula O2 Flow Rate 2.0 2.0 2.0 2.0 02/12/17 02/12/17 02/12/17 07:16 07:25 08:00 Temp 96.6 96.6 Pulse 105 Resp 18 B/P (MAP) 109/53 (71) Pulse Ox 91 93 O2 Delivery Nasal Cannula Nasal Cannula Nasal Cannula O2 Flow Rate 2.0 2.0 2.0 Intake and Output 02/11/17 02/11/17 02/12/17 14:59 22:59 06:59 Intake Total 600 ml 240 ml 600 ml Output Total 250 ml 450 ml Balance 600 ml -10 ml 150 ml OKSANA JOSEPH MD Feb 12, 2017 10:48
--- NOTE | 2017-02-12 10:50 | RAD ---
2 views of the Chest 02/12/2017 10:54 AM Indication: REVAL CHF, SOB Comparison: Chest radiograph February 08, 2017 Findings: Stable cardiomegaly. Stable central vascular congestion and interstitial coarsening. No pneumothorax or significant effusion is identified. Dual-lead pacemaking device from a subclavian approach is grossly stable. Bony thorax is stable. Impression: Cardiomegaly, central vascular congestion, interstitial thickening. Findings most likely reflect distal heart failure. The appearance is similar to prior study.
[2017-02-12 10:55] VITALS: BP 124/64
--- NOTE | 2017-02-12 11:07 | PDOC ---
Subjective: Subjective: says he feels better than he did yesterday - he doesn't feel bloated. Legs were weak during CXR. Objective: Objective: Plans for dialysis today. Vital Signs: Vital Signs Date Time Temp Pulse Resp B/P (MAP) Pulse Ox O2 Delivery O2 Flow Rate FiO2 02/12/17 08:00 Nasal Cannula 2.0 02/12/17 07:25 96.6 105 18 109/53 (71) 93 96.6 Labs: Laboratory Tests Test 02/11/17 13:12 02/11/17 16:33 02/12/17 07:24 Glucose (Fingerstick) 254 mg/dL (70-99) 246 mg/dL (70-99) 269 mg/dL (70-99) Imaging: CXR Impression: Cardiomegaly, central vascular congestion, interstitial thickening. Findings most likely reflect distal heart failure. The appearance is similar to prior study. PE: GEN: NAD, up to chair LUNGS: nasal cannula HEART: tachycardic ABD: soft, distended EXTREMITY: BLE edema NEURO/PSYCH: A & O 3 A/P: CHF, CKD Abd distention, decreased appetite, possible cirrhosis -h/o heavy alcohol use, now sober -normal INR, LFTs WNL -no clear ascites on US -- D/w Dr. Casey - ?hepatorenal Check Doppler, will review w/ Dr. Bermudez. KENAN REICH Feb 12, 2017 11:07
[2017-02-12] MEDS ORDERED: HEPARIN for IV BOLUS 10,000 UNIT/10 ML VIAL. ONE (12:14)
[2017-02-12] MEDS ORDERED: MIDAZOLAM HCL/PF 2 MG/2 ML VIAL. ONE (12:14)
[2017-02-12] MEDS ORDERED: fentaNYL PF VIAL 100 MCG/2 ML VIAL ONE (12:14)
[2017-02-12] MEDS ORDERED: LIDOCAINE 1%/EPI 1:100,000 20 ML VIAL. ONE (12:14)
--- NOTE | 2017-02-12 12:46 | RAD ---
Limited abdominal ultrasound 02/12/2017 Indication: Abdominal distention. Cirrhosis. Discussion: Ultrasound evaluation was performed is a patient was sitting in a chair. Patient refused to move to bed for exam. Static images are submitted to PACS. Exam is limited by positioning, body habitus, and patient's inability to participate in the exam including inability to breath-hold. The liver is enlarged measuring approximately 20 cm in diameter. Some flow seen within the portal vein. Velocities are above 20 cm/sec. Hepatic veins are grossly patent. Partially visualized right kidney is grossly unremarkable. Spleen is poorly visualized. Hepatic and mesenteric arteries are not visualized. No ascites was identified. Impression: 1. Significantly limited study 2. Hepatomegaly. No evidence of ascites was found 3. Portal vein appears to be patent with flow in the normal direction with grossly normal velocity
[2017-02-12] MEDS ORDERED: MIDAZOLAM HCL/PF 2 MG/2 ML VIAL. IV ONE (13:00)
[2017-02-12] MEDS ORDERED: LIDOCAINE 1%/EPI 1:100,000 20 ML VIAL. IJ ONE (13:00)
[2017-02-12] MEDS ORDERED: fentaNYL PF VIAL 100 MCG/2 ML VIAL IV ONE (13:00)
--- NOTE | 2017-02-12 13:02 | PDOC ---
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 Srivastava catheter is still in place. Vitals Vitals Vital Signs Date Time Temp Pulse Resp B/P (MAP) Pulse Ox O2 Delivery O2 Flow Rate FiO2 02/12/17 11:27 Nasal Cannula 2.0 02/12/17 10:55 98.9 68 20 124/64 (84) 92 98.9 Physical Exam Physical Exam Srivastava catheter in place General: Alert, Cooperative, No acute distress Heart: Regular rate, Normal S1, Normal S2 Lungs: Clear Extremities: Other (2-3+ pitting edema of both lower extremities) Labs LABS Laboratory Tests Test 02/11/17 13:12 02/11/17 16:33 02/12/17 04:10 02/12/17 07:24 Glucose (Fingerstick) 254 mg/dL (70-99) 246 mg/dL (70-99) 269 mg/dL (70-99) Hemoglobin 9.6 g/dL (13.0-17.5) Sodium Level 123 mmol/L (136-145) Potassium Level 5.1 mmol/L (3.5-5.1) Chloride Level 88 mmol/L (98-107) Carbon Dioxide Level 24 mmol/L (21-32) Anion Gap 11 (6-14) Blood Urea Nitrogen 68 mg/dL (8-26) Creatinine 3.4 mg/dL (0.7-1.3) Estimated GFR (Cockcroft-Gault) 17.7 Glucose Level 303 mg/dL (70-99) Calcium Level 9.7 mg/dL (8.5-10.1) Phosphorus Level 3.6 mg/dL (2.6-4.7) Magnesium Level 2.3 mg/dL (1.8-2.4) Albumin 2.9 g/dL (3.4-5.0) Test 02/12/17 08:15 02/12/17 11:33 Prothrombin Time 14.0 SEC (11.7-14.0) Prothromb Time International Ratio 1.2 (0.8-1.1) Glucose (Fingerstick) 292 mg/dL (70-99) Review of Systems Review of Systems No chest pain or shortness of breath Assessment and Plan Assessmemt and Plan Problems Medical Problems: (1) CHF (congestive heart failure) Status: Acute ASSESSMENT: Acute hypoxia Acute on chronic systolic CHF exacerbation COPD DM2 HTN History of CAD with CABG Anxiety 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 Labs Laboratory Tests Test 02/10/17 16:00 02/10/17 16:58 02/10/17 20:10 02/10/17 21:28 Potassium Level 4.5 mmol/L (3.5-5.1) 4.6 mmol/L (3.5-5.1) Glucose (Fingerstick) 346 mg/dL (70-99) 346 mg/dL (70-99) Test 02/11/17 03:50 02/11/17 07:27 02/11/17 07:50 02/11/17 12:00 White Blood Count 10.0 x10^3/uL (4.0-11.0) Red Blood Count 3.39 x10^6/uL (4.30-5.70) Hemoglobin 9.7 g/dL (13.0-17.5) Hematocrit 29.5 % (39.0-53.0) Mean Corpuscular Volume 87 fL (79-100) Mean Corpuscular Hemoglobin 29 pg (25-35) Mean Corpuscular Hemoglobin Concent 33 g/dL (31-37) Red Cell Distribution Width 15.5 % (11.5-14.5) Platelet Count 305 x10^3/uL (140-400) Neutrophils (%) (Auto) 66 % (31-73) Lymphocytes (%) (Auto) 15 % (24-48) Monocytes (%) (Auto) 13 % (0-9) Eosinophils (%) (Auto) 5 % (0-3) Basophils (%) (Auto) 1 % (0-3) Neutrophils # (Auto) 6.6 x10^3uL (1.8-7.7) Lymphocytes # (Auto) 1.5 x10^3/uL (1.0-4.8) Monocytes # (Auto) 1.3 x10^3/uL (0.0-1.1) Eosinophils # (Auto) 0.5 x10^3/uL (0.0-0.7) Basophils # (Auto) 0.1 x10^3/uL (0.0-0.2) Potassium Level 5.0 mmol/L (3.5-5.1) 4.4 mmol/L (3.5-5.1) Magnesium Level 2.4 mg/dL (1.8-2.4) Iron Level 21 ug/dL (65-175) Total Iron Binding Capacity 213 ug/dL (250-450) Iron Saturation 10 % (15-34) Ferritin 111 ng/mL (26-388) Tumor Marker Alpha Fetoprotein 1.4 ng/mL (0.0-8.3) Glucose (Fingerstick) 288 mg/dL (70-99) Reticulocyte Count (auto) 1.7 % (0.5-2.5) Sodium Level 123 mmol/L (136-145) Chloride Level 88 mmol/L (98-107) Carbon Dioxide Level 22 mmol/L (21-32) Anion Gap 13 (6-14) Blood Urea Nitrogen 65 mg/dL (8-26) Creatinine 3.1 mg/dL (0.7-1.3) Estimated GFR (Cockcroft-Gault) 19.7 BUN/Creatinine Ratio 21 (6-20) Glucose Level 325 mg/dL (70-99) Calcium Level 9.3 mg/dL (8.5-10.1) Total Bilirubin 1.0 mg/dL (0.2-1.0) Aspartate Amino Transf (AST/SGOT) 35 U/L (15-37) Alanine Aminotransferase (ALT/SGPT) 28 U/L (16-63) Alkaline Phosphatase 60 U/L (46-116) Total Protein 7.7 g/dL (6.4-8.2) Albumin 3.0 g/dL (3.4-5.0) Albumin/Globulin Ratio 0.6 (1.0-1.7) O2 Saturation 93 % (92-99) Arterial Blood pH 7.44 (7.35-7.45) Arterial Blood pCO2 at Patient Temp 35 mmHg (35-46) Arterial Blood pO2 at Patient Temp 63 mmHg (65-108) Arterial Blood HCO3 23 mmol/L (21-28) Arterial Blood Base Excess -1 mmol/L (-3-3) FiO2 2 lpm nc Test 02/11/17 13:12 02/11/17 16:33 02/12/17 04:10 02/12/17 07:24 Glucose (Fingerstick) 254 mg/dL (70-99) 246 mg/dL (70-99) 269 mg/dL (70-99) Hemoglobin 9.6 g/dL (13.0-17.5) Sodium Level 123 mmol/L (136-145) Potassium Level 5.1 mmol/L (3.5-5.1) Chloride Level 88 mmol/L (98-107) Carbon Dioxide Level 24 mmol/L (21-32) Anion Gap 11 (6-14) Blood Urea Nitrogen 68 mg/dL (8-26) Creatinine 3.4 mg/dL (0.7-1.3) Estimated GFR (Cockcroft-Gault) 17.7 Glucose Level 303 mg/dL (70-99) Calcium Level 9.7 mg/dL (8.5-10.1) Phosphorus Level 3.6 mg/dL (2.6-4.7) Magnesium Level 2.3 mg/dL (1.8-2.4) Albumin 2.9 g/dL (3.4-5.0) Test 02/12/17 08:15 02/12/17 11:33 Prothrombin Time 14.0 SEC (11.7-14.0) Prothromb Time International Ratio 1.2 (0.8-1.1) Glucose (Fingerstick) 292 mg/dL (70-99) Laboratory Tests Test 02/11/17 13:12 02/11/17 16:33 02/12/17 04:10 02/12/17 07:24 Glucose (Fingerstick) 254 mg/dL (70-99) 246 mg/dL (70-99) 269 mg/dL (70-99) Hemoglobin 9.6 g/dL (13.0-17.5) Sodium Level 123 mmol/L (136-145) Potassium Level 5.1 mmol/L (3.5-5.1) Chloride Level 88 mmol/L (98-107) Carbon Dioxide Level 24 mmol/L (21-32) Anion Gap 11 (6-14) Blood Urea Nitrogen 68 mg/dL (8-26) Creatinine 3.4 mg/dL (0.7-1.3) Estimated GFR (Cockcroft-Gault) 17.7 Glucose Level 303 mg/dL (70-99) Calcium Level 9.7 mg/dL (8.5-10.1) Phosphorus Level 3.6 mg/dL (2.6-4.7) Magnesium Level 2.3 mg/dL (1.8-2.4) Albumin 2.9 g/dL (3.4-5.0) Test 02/12/17 08:15 02/12/17 11:33 Prothrombin Time 14.0 SEC (11.7-14.0) Prothromb Time International Ratio 1.2 (0.8-1.1) Glucose (Fingerstick) 292 mg/dL (70-99) Microbiology 02/08/17 Urine Culture - Final, Complete 02/08/17 Urine Culture Result 1 (RIANNA) - Final, Complete Medications Current Medications Albuterol/ Ipratropium (Duoneb) 3 ml 1X ONCE NEB Last administered on 10:25; Start 02/08/17 at 09:30; Stop 02/08/17 at 09:38; Status DC Nitroglycerin (Nitro-Bid Oint) 1 inch 1X ONCE TP Last administered on 09:45; Start 02/08/17 at 09:30; Stop 02/08/17 at 09:38; Status DC Furosemide (Lasix) 40 mg 1X ONCE IVP Last administered on 02/08/17 09:45; Start 02/08/17 at 09:30; Stop 02/08/17 at 09:38; Status DC Ondansetron HCl (Zofran) 4 mg PRN Q8HRS PRN IV NAUSEA/VOMITING; Start at 11:30; Stop 02/09/17 at 11:29; Status DC Furosemide 100 mg/ Sodium Chloride 100 ml @ 0 mls/hr CONT PRN IV PER PROTOCOL Last administered on 02/12/17 08:37; Start 02/08/17 at 11:30; Stop 02/12/17 at 09:53; Status DC Aspirin (Bhavya Aspirin) 325 mg DAILY PO Last administered on 02/11/17 09:13; Start 02/09/17 at 09:00 Vitamin D (Vitamin D3) 1,000 unit DAILY PO Last administered on 02/12/17 09: 01; Start 02/09/17 at 09:00 Clopidogrel Bisulfate (Plavix) 75 mg DAILY PO Last administered on 02/11/17 09:13; Start 02/09/17 at 09:00 Metolazone (Zaroxolyn) 2.5 mg DAILY PO ; Start 02/09/17 at 09:00; Stop at 09:00; Status DC Spironolactone (Aldactone) 25 mg DAILY PO ; Start 02/09/17 at 09:00; Stop at 13:33; Status DC Tamsulosin HCl (Flomax) 0.4 mg DAILY PO Last administered on 02/12/17 09:01; Start 02/09/17 at 09:00 Trazodone HCl (Desyrel) 100 mg HS PO Last administered on 02/10/17 21:24; Start 02/08/17 at 21:00 Non-Formulary Medication 1 tab DAILY PO ; Start 02/09/17 at 09:00; Stop at 09:00; Status DC Glipizide (Glucotrol) 10 mg BIDBFRMEAL PO Last administered on 02/12/17 09:01 ; Start 02/09/17 at 17:00 Insulin Aspart (NovoLOG) 20 units TIDAC SQ Last administered on 02/11/17 18: 02; Start 02/08/17 at 16:30 Insulin Detemir (Levemir) 60 units QHS SQ Last administered on 02/11/17 21:04 ; Start 02/08/17 at 21:00 Multivitamins (Thera M Plus) 1 tab DAILY PO Last administered on 02/12/17 09: 01; Start 02/09/17 at 09:00 Acetaminophen (Tylenol) 650 mg PRN Q6HRS PRN PO FEVER; Start 02/08/17 at 16:30 Ondansetron HCl (Zofran) 4 mg PRN Q6HRS PRN IV NAUSEA/VOMITING; Start at 16:30 Morphine Sulfate 2 mg PRN Q2HR PRN IV PAIN; Start 02/08/17 at 16:30 Tramadol HCl (Ultram) 50 mg PRN Q6HRS PRN PO PAIN Last administered on 21:24; Start 02/08/17 at 16:30 Hydralazine HCl (Apresoline Inj) 10 mg PRN Q4HRS PRN IVP ELEVATED BP, SEE COMMENTS; Start 02/08/17 at 16:30 Docusate Sodium (Colace) 100 mg PRN DAILY PRN PO CONSTIPATION Last administered on 02/11/17 09:14; Start 02/08/17 at 16:30 Insulin Aspart (NovoLOG) 0-9 UNITS TIDWMEALS SQ Last administered on 12:04; Start 02/08/17 at 17:00 Dextrose (Dextrose 50%-Water Syringe) 12.5 gm PRN Q15MIN PRN IV SEE COMMENTS; Start 02/08/17 at 16:30 Albuterol Sulfate (Ventolin Neb Soln) 2.5 mg PRN Q4HRS PRN NEB SHORTNESS OF BREATH Last administered on 02/10/17 04:31; Start 02/08/17 at 16:30 Albuterol/ Ipratropium (Duoneb) 3 ml RTQID NEB Last administered on 02/12/17 11:26; Start 02/08/17 at 17:00 Heparin Sodium (Porcine) (Heparin Sq) 5,000 unit Q8HRS SQ Last administered on 02/11/17 06:35; Start 02/08/17 at 22:00 Alprazolam (Xanax) 0.25 mg PRN BID PRN PO ANXIETY / AGITATION Last administered on 02/08/17 17:52; Start 02/08/17 at 17:15; Stop 02/08/17 at 19 :44; Status DC Ceftriaxone Sodium 50 ml @ 100 mls/hr DAILY IV ; Start 02/09/17 at 09:00; Status UNV Alprazolam (Xanax) 0.5 mg PRN Q6HRS PRN PO ANXIETY / AGITATION Last administered on 02/09/17 08:43; Start 02/08/17 at 19:45; Stop 02/09/17 at 10 :55; Status DC Ceftriaxone Sodium (Rocephin) 1 gm Q24H IVP Last administered on 02/10/17 21: 24; Start 02/08/17 at 20:00; Stop 02/11/17 at 15:00; Status DC Potassium Chloride (Klor-Con) 40 meq 1X ONCE PO Last administered on 08:43; Start 02/09/17 at 08:15; Stop 02/09/17 at 08:16; Status DC Potassium Chloride (Klor-Con) 40 meq 1X ONCE PO Last administered on 12:23; Start 02/09/17 at 12:00; Stop 02/09/17 at 12:01; Status DC Dobutamine HCl/ Dextrose 250 ml @ 0 mls/hr CONT PRN IV SEE I/O RECORD Last administered on 02/11/17 19:43; Start 02/09/17 at 08:15; Stop 02/12/17 at 09 :53; Status DC Alprazolam (Xanax) 0.25 mg PRN Q6HRS PRN PO ANXIETY / AGITATION Last administered on 02/12/17 09:30; Start 02/09/17 at 11:00 Potassium Chloride (Klor-Con) 40 meq PRN Q4HRS PRN PO for K < 4.0 Last administered on 02/09/17 22:13; Start 02/09/17 at 11:15 Albumin Human 100 ml @ 100 mls/hr 1X ONCE IV Last administered on 02/10/17 12:00; Start 02/10/17 at 12:00; Stop 02/10/17 at 12:59; Status DC Albumin Human 100 ml @ 100 mls/hr 1X ONCE IV Last administered on 02/10/17 21:23; Start 02/10/17 at 20:00; Stop 02/10/17 at 20:59; Status DC Magnesium Sulfate/ Dextrose 50 ml @ 25 mls/hr PRN DAILY PRN IV for Mag < 1.7 on am labs; Start 02/11/17 at 11:30 Cefpodoxime Proxetil (Vantin) 100 mg BID PO Last administered on 02/12/17 09: 01; Start 02/11/17 at 21:00 Active Scripts Active Novolog (Insulin Aspart) 100 Unit/1 Ml Cartridge 25 Unit SQ TID 30 Days Metolazone 2.5 Mg Tablet 2.5 Mg PO DAILY Flomax (Tamsulosin Hcl) 0.4 Mg Cap.er.24h 0.4 Mg PO DAILY Reported Trazodone Hcl 100 Mg Tablet 100 Mg PO HS Glipizide 10 Mg Tablet 1 Tab PO BID Spironolactone 25 Mg Tablet 1 Tab PO DAILY Multi-Day Vitamins (Multivitamin) 1 Each Tablet 1 Tab PO DAILY Vitamin D3 (Cholecalciferol (Vitamin D3)) 1,000 Unit Tablet 1 Tab PO DAILY Aspirin 325 Mg Tablet 1 Tab PO DAILY Bumetanide 2 Mg Tablet 1 Tab PO DAILY Lantus Solostar (Insulin Glargine,Hum.rec.anlog) 100 Unit/1 Ml Insuln.pen 75 Unit SQ QHS Clopidogrel (Clopidogrel Bisulfate) 75 Mg Tablet 1 Tab PO DAILY Vitals/I & O Vital Sign - Last 24 Hours 02/11/17 02/11/17 02/11/17 02/11/17 15:00 17:04 18:45 19:45 Temp 98.3 98.4 98.3 98.4 Pulse 107 78 Resp 22 20 B/P (MAP) 92/47 (62) 123/60 (81) Pulse Ox 92 91 98 O2 Delivery Nasal Cannula Nasal Cannula Nasal Cannula Nasal Cannula O2 Flow Rate 2.0 2.0 2.0 2.0 02/11/17 02/11/17 02/12/17 02/12/17 20:00 23:14 03:03 07:16 Temp 97.9 98.7 97.9 98.7 Pulse 88 85 Resp 20 20 B/P (MAP) 103/56 (72) 111/44 (66) Pulse Ox 94 94 91 O2 Delivery Nasal Cannula Nasal Cannula Nasal Cannula Nasal Cannula O2 Flow Rate 2.0 2.0 2.0 2.0 02/12/17 02/12/17 02/12/17 02/12/17 07:25 08:00 10:55 11:27 Temp 96.6 98.9 96.6 98.9 Pulse 105 68 Resp 18 20 B/P (MAP) 109/53 (71) 124/64 (84) Pulse Ox 93 92 O2 Delivery Nasal Cannula Nasal Cannula Nasal Cannula Nasal Cannula O2 Flow Rate 2.0 2.0 2.0 2.0 Intake and Output 1102/11/17 02/12/17 15:00 23:00 07:00 Intake Total 600 ml 240 ml 600 ml Output Total 250 ml 450 ml Balance 600 ml -10 ml 150 ml MARYJANE SALCIDO III, DO Feb 12, 2017 13:02
[2017-02-12 13:14] VITALS: BP 144/70
--- NOTE | 2017-02-12 13:22 | RAD ---
Procedure: Tunneled hemodialysis catheter placement 02/12/2017 Clinical Indication: Need for at least intermediate term dialysis access. Sedation: Conscious sedation was administered for 30 minutes. The patient was monitored by a qualified independent observer throughout the time of sedation. Please refer to the medical record for exact doses of medications utilized to achieve moderate sedation. FLUORO TIME: 1.0 MIN DOSE area product: [id number] Sterility: All elements of maximal sterile barrier technique including the use of a cap, mask, sterile gown, sterile gloves, large sterile sheet, appropriate hand hygiene, and 2% chlorhexidine for cutaneous antisepsis (or acceptable alternative antiseptic per current guidelines) were followed for this procedure. Consent: The procedure was explained in its entirety to the patient or the patients designated phone representative by a member of the treatment team, including a discussion of the risks, benefits and commonly accepted alternatives to the procedure, as well as the expected consequences of no therapy whatsoever. Discussion of the risks included, but was not limited to, those that are most frequent and those that are rare but possibly severe or life-threatening, as well as the possibility of unforeseen complications. Technique and Findings: Following informed consent, the patient was prepped and draped in the usual sterile fashion. Ultrasound interrogation of the right neck revealed patency and compressibility of the right internal jugular vein. A 21-gauge micropuncture was then used to gain access to this vein under ultrasound guidance. A hard copy ultrasound image was recorded. The needle was exchanged over a wire for a 4 [place] sheath which was used to guide an Amplatz wire into the IVC. The skin over the right anterior chest wall was copiously anesthetized with 1% Lidocaine plus Epinephrine and a small dermatotomy was made. 23 cm tip cuff palindrome dialysis catheter catheter was then tunneled subcutaneously towards the neck dermatotomy and deployed through a large caliber peel-away sheath under fluoroscopic guidance such that the distal tip resided in the mid right atrium. Manual flow rates were assessed and found to be excellent. The catheter was then flushed, packed with Heparin, capped, and sutured to the skin. The neck dermatotomy was closed with Dermabond. No immediate complications were identified. Impression: Ultrasound fluoroscopically guided tunneled hemodialysis catheter placement
[2017-02-12] MEDS: HEPARIN PF for SUB-Q USE 5,000 UNIT/0.5 ML VIAL. SQ SCH ×2 (14:00→21:33)
[2017-02-12 15:22] LABS: HEP A IGM ABDY Negative (Negative)
[2017-02-12] MEDS: ALPRAZolam 1 MG TABLET PO PRN (18:01)
[2017-02-12] MEDS ORDERED: IV NORMAL SALINE 1000ML BAG 1,000 ML IV PRN ×2 (18:54)
[2017-02-12] MEDS ORDERED: DIALYSIS PATIENT. MC PRN (19:00)
[2017-02-12 19:49] VITALS: BP 97/47
[2017-02-12] MEDS: traZODone 100 MG TABLET. PO SCH (21:27)
[2017-02-12] MEDS: INSULIN DETEMIR 300 UNITS/3 ML INSULN.PEN. SQ SCH (21:53)
[2017-02-12 23:23] VITALS: BP 100/54
[2017-02-13 03:00] VITALS: BP 117/61
[2017-02-13 05:24] LABS: BASO # 0.1 x10^3/uL (0.0-0.2); BASO % 1 % (0-3); EOS % 8 % (0-3); HEMATOCRIT 30.7 % (39.0-53.0); HEMOGLOBIN 9.9 g/dL (13.0-17.5); LYMPH # 1.1 x10^3/uL (1.0-4.8); LYMPH % 11 % (24-48); MEAN CORPUSCULAR HEMOGLOBIN 28 pg (25-35); MEAN CORPUSCULAR HGB CONC 32 g/dL (31-37); MEAN CORPUSCULAR VOLUME 87 fL (79-100); MONO % 12 % (0-9); NEUT % 68 % (31-73); PLATELET COUNT 306 x10^3/uL (140-400); RED BLOOD COUNT 3.55 x10^6/uL (4.30-5.70); RED CELL DISTRIBUTION WIDTH 15.2 % (11.5-14.5); WHITE BLOOD COUNT 10.3 x10^3/uL (4.0-11.0)
[2017-02-13 06:02] LABS: ALBUMIN 2.6 g/dL (3.4-5.0); CALCIUM 9.3 mg/dL (8.5-10.1); CREATININE 3.1 mg/dL (0.7-1.3); GFR 19.7; MAGNESIUM 2.4 mg/dL (1.8-2.4); PHOSPHORUS 3.8 mg/dL (2.6-4.7); POTASSIUM 4.4 mmol/L (3.5-5.1)
[2017-02-13] MEDS: HEPARIN PF for SUB-Q USE 5,000 UNIT/0.5 ML VIAL. SQ SCH ×3 (06:07→21:39)
[2017-02-13 07:00] VITALS: BP 90/50
[2017-02-13] MEDS: IPRATRPIUM/ALBUTEROL 0.5/2.5MG 3 ML NEBU. NEB SCH ×4 (07:24→20:03)
[2017-02-13] MEDS: INSULIN ASPART 300 UNITS/3 ML INSULN.PEN SQ SCH ×6 (07:30→18:23)
[2017-02-13] MEDS: ALPRAZolam 1 MG TABLET PO PRN ×3 (08:29→21:39)
--- NOTE | 2017-02-13 11:28 | PDOC ---
Dialysis Progress Note Dialysis Note Dialysis Note Seen on Hemodialysis, tolerating treatment Okay so far Vitals on Hemodialysis: 97/52 85 afeb Feeling much better after yesterday's HD General Appearance: Awake: Alert Oriented x 3 Neck: No JVD or JVP Chest: CTA [place] Heart: S1 S2 Abdomen - Soft NTND Extremities - ++ Edema Presumed ESRD: Dialysis as below F 180 NR 3.5 Hrs 3 K 2.5 Ca 140 Na 35 HC03 Qb 350 + Qd 500+ Heparin 0 Units Uf 3-4 Kgs or to dry weight as tolerated May give 25-50 gms of 25% Albumin if needed to maintain Hemodynamic stability Treatment plan reviewed and discussed with larriman helper Vitals Vital Signs Vital Signs Date Time Temp Pulse Resp B/P (MAP) Pulse Ox O2 Delivery O2 Flow Rate FiO2 02/13/17 08:00 Nasal Cannula 2.0 02/13/17 07:26 93 02/13/17 07:00 98.2 98 20 90/50 (63) 98.2 Labs Last Labs Laboratory Tests Test 02/11/17 12:00 02/11/17 13:12 02/11/17 16:33 02/12/17 04:10 O2 Saturation 93 % (92-99) Arterial Blood pH 7.44 (7.35-7.45) Arterial Blood pCO2 at Patient Temp 35 mmHg (35-46) Arterial Blood pO2 at Patient Temp 63 mmHg (65-108) Arterial Blood HCO3 23 mmol/L (21-28) Arterial Blood Base Excess -1 mmol/L (-3-3) FiO2 2 lpm nc Glucose (Fingerstick) 254 mg/dL (70-99) 246 mg/dL (70-99) Hemoglobin 9.6 g/dL (13.0-17.5) Sodium Level 123 mmol/L (136-145) Potassium Level 5.1 mmol/L (3.5-5.1) Chloride Level 88 mmol/L (98-107) Carbon Dioxide Level 24 mmol/L (21-32) Anion Gap 11 (6-14) Blood Urea Nitrogen 68 mg/dL (8-26) Creatinine 3.4 mg/dL (0.7-1.3) Estimated GFR (Cockcroft-Gault) 17.7 Glucose Level 303 mg/dL (70-99) Calcium Level 9.7 mg/dL (8.5-10.1) Phosphorus Level 3.6 mg/dL (2.6-4.7) Magnesium Level 2.3 mg/dL (1.8-2.4) Albumin 2.9 g/dL (3.4-5.0) Test 02/12/17 07:24 02/12/17 08:15 02/12/17 11:33 02/12/17 18:00 Glucose (Fingerstick) 269 mg/dL (70-99) 292 mg/dL (70-99) 162 mg/dL (70-99) Prothrombin Time 14.0 SEC (11.7-14.0) Prothromb Time International Ratio 1.2 (0.8-1.1) Test 02/12/17 19:13 02/12/17 21:28 02/13/17 04:00 25-Hydroxy Vitamin D Total 38.3 ng/mL (30-100) Glucose (Fingerstick) 77 mg/dL (70-99) White Blood Count 10.3 x10^3/uL (4.0-11.0) Red Blood Count 3.55 x10^6/uL (4.30-5.70) Hemoglobin 9.9 g/dL (13.0-17.5) Hematocrit 30.7 % (39.0-53.0) Mean Corpuscular Volume 87 fL (79-100) Mean Corpuscular Hemoglobin 28 pg (25-35) Mean Corpuscular Hemoglobin Concent 32 g/dL (31-37) Red Cell Distribution Width 15.2 % (11.5-14.5) Platelet Count 306 x10^3/uL (140-400) Neutrophils (%) (Auto) 68 % (31-73) Lymphocytes (%) (Auto) 11 % (24-48) Monocytes (%) (Auto) 12 % (0-9) Eosinophils (%) (Auto) 8 % (0-3) Basophils (%) (Auto) 1 % (0-3) Neutrophils # (Auto) 7.1 x10^3uL (1.8-7.7) Lymphocytes # (Auto) 1.1 x10^3/uL (1.0-4.8) Monocytes # (Auto) 1.2 x10^3/uL (0.0-1.1) Eosinophils # (Auto) 0.8 x10^3/uL (0.0-0.7) Basophils # (Auto) 0.1 x10^3/uL (0.0-0.2) Sodium Level 130 mmol/L (136-145) Potassium Level 4.4 mmol/L (3.5-5.1) Chloride Level 92 mmol/L (98-107) Carbon Dioxide Level 29 mmol/L (21-32) Anion Gap 9 (6-14) Blood Urea Nitrogen 43 mg/dL (8-26) Creatinine 3.1 mg/dL (0.7-1.3) Estimated GFR (Cockcroft-Gault) 19.7 Glucose Level 132 mg/dL (70-99) Calcium Level 9.3 mg/dL (8.5-10.1) Phosphorus Level 3.8 mg/dL (2.6-4.7) Magnesium Level 2.4 mg/dL (1.8-2.4) Albumin 2.6 g/dL (3.4-5.0) Laboratory Tests Test 02/12/17 11:33 02/12/17 18:00 02/12/17 19:13 02/12/17 21:28 Glucose (Fingerstick) 292 mg/dL (70-99) 162 mg/dL (70-99) 77 mg/dL (70-99) 25-Hydroxy Vitamin D Total 38.3 ng/mL (30-100) Test 02/13/17 04:00 White Blood Count 10.3 x10^3/uL (4.0-11.0) Red Blood Count 3.55 x10^6/uL (4.30-5.70) Hemoglobin 9.9 g/dL (13.0-17.5) Hematocrit 30.7 % (39.0-53.0) Mean Corpuscular Volume 87 fL (79-100) Mean Corpuscular Hemoglobin 28 pg (25-35) Mean Corpuscular Hemoglobin Concent 32 g/dL (31-37) Red Cell Distribution Width 15.2 % (11.5-14.5) Platelet Count 306 x10^3/uL (140-400) Neutrophils (%) (Auto) 68 % (31-73) Lymphocytes (%) (Auto) 11 % (24-48) Monocytes (%) (Auto) 12 % (0-9) Eosinophils (%) (Auto) 8 % (0-3) Basophils (%) (Auto) 1 % (0-3) Neutrophils # (Auto) 7.1 x10^3uL (1.8-7.7) Lymphocytes # (Auto) 1.1 x10^3/uL (1.0-4.8) Monocytes # (Auto) 1.2 x10^3/uL (0.0-1.1) Eosinophils # (Auto) 0.8 x10^3/uL (0.0-0.7) Basophils # (Auto) 0.1 x10^3/uL (0.0-0.2) Sodium Level 130 mmol/L (136-145) Potassium Level 4.4 mmol/L (3.5-5.1) Chloride Level 92 mmol/L (98-107) Carbon Dioxide Level 29 mmol/L (21-32) Anion Gap 9 (6-14) Blood Urea Nitrogen 43 mg/dL (8-26) Creatinine 3.1 mg/dL (0.7-1.3) Estimated GFR (Cockcroft-Gault) 19.7 Glucose Level 132 mg/dL (70-99) Calcium Level 9.3 mg/dL (8.5-10.1) Phosphorus Level 3.8 mg/dL (2.6-4.7) Magnesium Level 2.4 mg/dL (1.8-2.4) Albumin 2.6 g/dL (3.4-5.0) Assessment Assessment Problems Medical Problems: (1) CHF (congestive heart failure) Status: Acute Problems: Plan Plan of Care Problems Medical Problems: (1) CHF (congestive heart failure) Status: Acute AUGIE MONTELONGO MD Feb 13, 2017 11:28
--- NOTE | 2017-02-13 12:57 | PDOC ---
Subjective: Subjective: Seen during dialysis. No abd complaints - doesn't feel bloated, says eating w/o issue. Objective: Vital Signs: Vital Signs Date Time Temp Pulse Resp B/P (MAP) Pulse Ox O2 Delivery O2 Flow Rate FiO2 02/13/17 08:00 Nasal Cannula 2.0 02/13/17 07:26 93 02/13/17 07:00 98.2 98 20 90/50 (63) 98.2 Labs: Laboratory Tests Test 02/12/17 18:00 02/12/17 19:13 02/12/17 21:28 02/13/17 04:00 Glucose (Fingerstick) 162 mg/dL 77 mg/dL 25-Hydroxy Vitamin D Total 38.3 ng/mL White Blood Count 10.3 x10^3/uL Red Blood Count 3.55 x10^6/uL Hemoglobin 9.9 g/dL Hematocrit 30.7 % Mean Corpuscular Volume 87 fL Mean Corpuscular Hemoglobin 28 pg Mean Corpuscular Hemoglobin Concent 32 g/dL Red Cell Distribution Width 15.2 % Platelet Count 306 x10^3/uL Neutrophils (%) (Auto) 68 % Lymphocytes (%) (Auto) 11 % Monocytes (%) (Auto) 12 % Eosinophils (%) (Auto) 8 % Basophils (%) (Auto) 1 % Neutrophils # (Auto) 7.1 x10^3uL Lymphocytes # (Auto) 1.1 x10^3/uL Monocytes # (Auto) 1.2 x10^3/uL Eosinophils # (Auto) 0.8 x10^3/uL Basophils # (Auto) 0.1 x10^3/uL Sodium Level 130 mmol/L Potassium Level 4.4 mmol/L Chloride Level 92 mmol/L Carbon Dioxide Level 29 mmol/L Anion Gap 9 Blood Urea Nitrogen 43 mg/dL Creatinine 3.1 mg/dL Estimated GFR (Cockcroft-Gault) 19.7 Glucose Level 132 mg/dL Calcium Level 9.3 mg/dL Phosphorus Level 3.8 mg/dL Magnesium Level 2.4 mg/dL Albumin 2.6 g/dL Test 02/13/17 07:38 Glucose (Fingerstick) 124 mg/dL Imaging: Doppler Impression: 1. Significantly limited study 2. Hepatomegaly. No evidence of ascites was found 3. Portal vein appears to be patent with flow in the normal direction with grossly normal velocity. PE: GEN: dialyzing LUNGS: clear HEART: tachycardic ABD: soft, non-tender, ?less distended NEURO/PSYCH: A & O 3 A/P: CHF, CKD/?ESRD (on HD) Decreased appetite, bloating - improved Possible cirrhosis -h/o heavy alcohol use (sober) -normal INR and AFP, LFTs WNL -no clear ascites on US -- Improved/stable GI-patel. KENAN REICH Feb 13, 2017 12:56
[2017-02-13] MEDS ORDERED: IV NORMAL SALINE 1000ML BAG 1,000 ML IV PRN (13:21)
[2017-02-13] MEDS: ASPIRIN 325 MG TABLET PO SCH (13:27)
[2017-02-13] MEDS: CHOLECALCIFEROL (VITAMIN D3) 1,000 UNIT TABLET PO SCH (13:27)
[2017-02-13] MEDS: TAMSULOSIN 0.4 MG CAP.ER.24H. PO SCH (13:27)
[2017-02-13] MEDS: CEFPODOXIME PROXETIL 100 MG TABLET. PO SCH ×2 (13:27→21:39)
[2017-02-13] MEDS: MULTIVITAMIN with MINERAL TABLET. PO SCH (13:27)
[2017-02-13] MEDS: glipiZIDE 5 MG TABLET PO SCH ×2 (13:27→18:19)
[2017-02-13] MEDS: CLOPIDOGREL BISULFATE 75 MG TABLET PO SCH (13:27)
[2017-02-13] MEDS ORDERED: DIALYSIS PATIENT. MC PRN (13:30)
[2017-02-13 14:51] VITALS: BP 88/55
--- NOTE | 2017-02-13 15:04 | PDOC ---
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 Vitals Vitals Vital Signs Date Time Temp Pulse Resp B/P (MAP) Pulse Ox O2 Delivery O2 Flow Rate FiO2 02/13/17 14:51 97.9 53 20 88/55 (66) 92 Nasal Cannula 2.0 97.9 Physical Exam Physical Exam Srivastava catheter in place General: Alert, Cooperative, No acute distress Labs LABS Laboratory Tests Test 02/12/17 18:00 02/12/17 19:13 02/12/17 21:28 02/13/17 04:00 Glucose (Fingerstick) 162 mg/dL (70-99) 77 mg/dL (70-99) 25-Hydroxy Vitamin D Total 38.3 ng/mL (30-100) 39.5 ng/mL (30-100) White Blood Count 10.3 x10^3/uL (4.0-11.0) Red Blood Count 3.55 x10^6/uL (4.30-5.70) Hemoglobin 9.9 g/dL (13.0-17.5) Hematocrit 30.7 % (39.0-53.0) Mean Corpuscular Volume 87 fL (79-100) Mean Corpuscular Hemoglobin 28 pg (25-35) Mean Corpuscular Hemoglobin Concent 32 g/dL (31-37) Red Cell Distribution Width 15.2 % (11.5-14.5) Platelet Count 306 x10^3/uL (140-400) Neutrophils (%) (Auto) 68 % (31-73) Lymphocytes (%) (Auto) 11 % (24-48) Monocytes (%) (Auto) 12 % (0-9) Eosinophils (%) (Auto) 8 % (0-3) Basophils (%) (Auto) 1 % (0-3) Neutrophils # (Auto) 7.1 x10^3uL (1.8-7.7) Lymphocytes # (Auto) 1.1 x10^3/uL (1.0-4.8) Monocytes # (Auto) 1.2 x10^3/uL (0.0-1.1) Eosinophils # (Auto) 0.8 x10^3/uL (0.0-0.7) Basophils # (Auto) 0.1 x10^3/uL (0.0-0.2) Sodium Level 130 mmol/L (136-145) Potassium Level 4.4 mmol/L (3.5-5.1) Chloride Level 92 mmol/L (98-107) Carbon Dioxide Level 29 mmol/L (21-32) Anion Gap 9 (6-14) Blood Urea Nitrogen 43 mg/dL (8-26) Creatinine 3.1 mg/dL (0.7-1.3) Estimated GFR (Cockcroft-Gault) 19.7 Glucose Level 132 mg/dL (70-99) Calcium Level 9.3 mg/dL (8.5-10.1) Phosphorus Level 3.8 mg/dL (2.6-4.7) Magnesium Level 2.4 mg/dL (1.8-2.4) Albumin 2.6 g/dL (3.4-5.0) Test 02/13/17 07:38 02/13/17 13:23 Glucose (Fingerstick) 124 mg/dL (70-99) 175 mg/dL (70-99) Review of Systems Review of Systems Not obtained. 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 Labs Laboratory Tests Test 02/11/17 16:33 02/12/17 04:10 02/12/17 07:24 02/12/17 08:15 Glucose (Fingerstick) 246 mg/dL (70-99) 269 mg/dL (70-99) Hemoglobin 9.6 g/dL (13.0-17.5) Sodium Level 123 mmol/L (136-145) Potassium Level 5.1 mmol/L (3.5-5.1) Chloride Level 88 mmol/L (98-107) Carbon Dioxide Level 24 mmol/L (21-32) Anion Gap 11 (6-14) Blood Urea Nitrogen 68 mg/dL (8-26) Creatinine 3.4 mg/dL (0.7-1.3) Estimated GFR (Cockcroft-Gault) 17.7 Glucose Level 303 mg/dL (70-99) Calcium Level 9.7 mg/dL (8.5-10.1) Phosphorus Level 3.6 mg/dL (2.6-4.7) Magnesium Level 2.3 mg/dL (1.8-2.4) Albumin 2.9 g/dL (3.4-5.0) Prothrombin Time 14.0 SEC (11.7-14.0) Prothromb Time International Ratio 1.2 (0.8-1.1) Test 02/12/17 11:33 02/12/17 18:00 02/12/17 19:13 02/12/17 21:28 Glucose (Fingerstick) 292 mg/dL (70-99) 162 mg/dL (70-99) 77 mg/dL (70-99) 25-Hydroxy Vitamin D Total 38.3 ng/mL (30-100) Test 02/13/17 04:00 02/13/17 07:38 02/13/17 13:23 White Blood Count 10.3 x10^3/uL (4.0-11.0) Red Blood Count 3.55 x10^6/uL (4.30-5.70) Hemoglobin 9.9 g/dL (13.0-17.5) Hematocrit 30.7 % (39.0-53.0) Mean Corpuscular Volume 87 fL (79-100) Mean Corpuscular Hemoglobin 28 pg (25-35) Mean Corpuscular Hemoglobin Concent 32 g/dL (31-37) Red Cell Distribution Width 15.2 % (11.5-14.5) Platelet Count 306 x10^3/uL (140-400) Neutrophils (%) (Auto) 68 % (31-73) Lymphocytes (%) (Auto) 11 % (24-48) Monocytes (%) (Auto) 12 % (0-9) Eosinophils (%) (Auto) 8 % (0-3) Basophils (%) (Auto) 1 % (0-3) Neutrophils # (Auto) 7.1 x10^3uL (1.8-7.7) Lymphocytes # (Auto) 1.1 x10^3/uL (1.0-4.8) Monocytes # (Auto) 1.2 x10^3/uL (0.0-1.1) Eosinophils # (Auto) 0.8 x10^3/uL (0.0-0.7) Basophils # (Auto) 0.1 x10^3/uL (0.0-0.2) Sodium Level 130 mmol/L (136-145) Potassium Level 4.4 mmol/L (3.5-5.1) Chloride Level 92 mmol/L (98-107) Carbon Dioxide Level 29 mmol/L (21-32) Anion Gap 9 (6-14) Blood Urea Nitrogen 43 mg/dL (8-26) Creatinine 3.1 mg/dL (0.7-1.3) Estimated GFR (Cockcroft-Gault) 19.7 Glucose Level 132 mg/dL (70-99) Calcium Level 9.3 mg/dL (8.5-10.1) Phosphorus Level 3.8 mg/dL (2.6-4.7) Magnesium Level 2.4 mg/dL (1.8-2.4) Albumin 2.6 g/dL (3.4-5.0) 25-Hydroxy Vitamin D Total 39.5 ng/mL (30-100) Glucose (Fingerstick) 124 mg/dL (70-99) 175 mg/dL (70-99) Laboratory Tests Test 02/12/17 18:00 02/12/17 19:13 02/12/17 21:28 02/13/17 04:00 Glucose (Fingerstick) 162 mg/dL (70-99) 77 mg/dL (70-99) 25-Hydroxy Vitamin D Total 38.3 ng/mL (30-100) 39.5 ng/mL (30-100) White Blood Count 10.3 x10^3/uL (4.0-11.0) Red Blood Count 3.55 x10^6/uL (4.30-5.70) Hemoglobin 9.9 g/dL (13.0-17.5) Hematocrit 30.7 % (39.0-53.0) Mean Corpuscular Volume 87 fL (79-100) Mean Corpuscular Hemoglobin 28 pg (25-35) Mean Corpuscular Hemoglobin Concent 32 g/dL (31-37) Red Cell Distribution Width 15.2 % (11.5-14.5) Platelet Count 306 x10^3/uL (140-400) Neutrophils (%) (Auto) 68 % (31-73) Lymphocytes (%) (Auto) 11 % (24-48) Monocytes (%) (Auto) 12 % (0-9) Eosinophils (%) (Auto) 8 % (0-3) Basophils (%) (Auto) 1 % (0-3) Neutrophils # (Auto) 7.1 x10^3uL (1.8-7.7) Lymphocytes # (Auto) 1.1 x10^3/uL (1.0-4.8) Monocytes # (Auto) 1.2 x10^3/uL (0.0-1.1) Eosinophils # (Auto) 0.8 x10^3/uL (0.0-0.7) Basophils # (Auto) 0.1 x10^3/uL (0.0-0.2) Sodium Level 130 mmol/L (136-145) Potassium Level 4.4 mmol/L (3.5-5.1) Chloride Level 92 mmol/L (98-107) Carbon Dioxide Level 29 mmol/L (21-32) Anion Gap 9 (6-14) Blood Urea Nitrogen 43 mg/dL (8-26) Creatinine 3.1 mg/dL (0.7-1.3) Estimated GFR (Cockcroft-Gault) 19.7 Glucose Level 132 mg/dL (70-99) Calcium Level 9.3 mg/dL (8.5-10.1) Phosphorus Level 3.8 mg/dL (2.6-4.7) Magnesium Level 2.4 mg/dL (1.8-2.4) Albumin 2.6 g/dL (3.4-5.0) Test 02/13/17 07:38 02/13/17 13:23 Glucose (Fingerstick) 124 mg/dL (70-99) 175 mg/dL (70-99) Microbiology 02/08/17 Urine Culture - Final, Complete 02/08/17 Urine Culture Result 1 (RIANNA) - Final, Complete Medications Current Medications Albuterol/ Ipratropium (Duoneb) 3 ml 1X ONCE NEB Last administered on 10:25; Start 02/08/17 at 09:30; Stop 02/08/17 at 09:38; Status DC Nitroglycerin (Nitro-Bid Oint) 1 inch 1X ONCE TP Last administered on 09:45; Start 02/08/17 at 09:30; Stop 02/08/17 at 09:38; Status DC Furosemide (Lasix) 40 mg 1X ONCE IVP Last administered on 02/08/17 09:45; Start 02/08/17 at 09:30; Stop 02/08/17 at 09:38; Status DC Ondansetron HCl (Zofran) 4 mg PRN Q8HRS PRN IV NAUSEA/VOMITING; Start at 11:30; Stop 02/09/17 at 11:29; Status DC Furosemide 100 mg/ Sodium Chloride 100 ml @ 0 mls/hr CONT PRN IV PER PROTOCOL Last administered on 02/12/17 08:37; Start 02/08/17 at 11:30; Stop 02/12/17 at 09:53; Status DC Aspirin (Bhavya Aspirin) 325 mg DAILY PO Last administered on 02/13/17 13:27; Start 02/09/17 at 09:00 Vitamin D (Vitamin D3) 1,000 unit DAILY PO Last administered on 02/13/17 13: 27; Start 02/09/17 at 09:00 Clopidogrel Bisulfate (Plavix) 75 mg DAILY PO Last administered on 02/13/17 13:27; Start 02/09/17 at 09:00 Metolazone (Zaroxolyn) 2.5 mg DAILY PO ; Start 02/09/17 at 09:00; Stop at 09:00; Status DC Spironolactone (Aldactone) 25 mg DAILY PO ; Start 02/09/17 at 09:00; Stop at 13:33; Status DC Tamsulosin HCl (Flomax) 0.4 mg DAILY PO Last administered on 02/13/17 13:27; Start 02/09/17 at 09:00 Trazodone HCl (Desyrel) 100 mg HS PO Last administered on 02/12/17 21:27; Start 02/08/17 at 21:00 Non-Formulary Medication 1 tab DAILY PO ; Start 02/09/17 at 09:00; Stop at 09:00; Status DC Glipizide (Glucotrol) 10 mg BIDBFRMEAL PO Last administered on 02/13/17 13:27 ; Start 02/09/17 at 17:00 Insulin Aspart (NovoLOG) 20 units TIDAC SQ Last administered on 02/13/17 13: 33; Start 02/08/17 at 16:30 Insulin Detemir (Levemir) 60 units QHS SQ Last administered on 02/12/17 21:53 ; Start 02/08/17 at 21:00 Multivitamins (Thera M Plus) 1 tab DAILY PO Last administered on 02/13/17 13: 27; Start 02/09/17 at 09:00 Acetaminophen (Tylenol) 650 mg PRN Q6HRS PRN PO FEVER; Start 02/08/17 at 16:30 Ondansetron HCl (Zofran) 4 mg PRN Q6HRS PRN IV NAUSEA/VOMITING; Start at 16:30 Morphine Sulfate 2 mg PRN Q2HR PRN IV PAIN; Start 02/08/17 at 16:30 Tramadol HCl (Ultram) 50 mg PRN Q6HRS PRN PO PAIN Last administered on 21:24; Start 02/08/17 at 16:30 Hydralazine HCl (Apresoline Inj) 10 mg PRN Q4HRS PRN IVP ELEVATED BP, SEE COMMENTS; Start 02/08/17 at 16:30 Docusate Sodium (Colace) 100 mg PRN DAILY PRN PO CONSTIPATION Last administered on 02/11/17 09:14; Start 02/08/17 at 16:30 Insulin Aspart (NovoLOG) 0-9 UNITS TIDWMEALS SQ Last administered on 18:17; Start 02/08/17 at 17:00 Dextrose (Dextrose 50%-Water Syringe) 12.5 gm PRN Q15MIN PRN IV SEE COMMENTS; Start 02/08/17 at 16:30 Albuterol Sulfate (Ventolin Neb Soln) 2.5 mg PRN Q4HRS PRN NEB SHORTNESS OF BREATH Last administered on 02/10/17 04:31; Start 02/08/17 at 16:30 Albuterol/ Ipratropium (Duoneb) 3 ml RTQID NEB Last administered on 02/13/17 07:24; Start 02/08/17 at 17:00 Heparin Sodium (Porcine) (Heparin Sq) 5,000 unit Q8HRS SQ Last administered on 02/13/17 13:34; Start 02/08/17 at 22:00 Alprazolam (Xanax) 0.25 mg PRN BID PRN PO ANXIETY / AGITATION Last administered on 02/08/17 17:52; Start 02/08/17 at 17:15; Stop 02/08/17 at 19 :44; Status DC Ceftriaxone Sodium 50 ml @ 100 mls/hr DAILY IV ; Start 02/09/17 at 09:00; Status UNV Alprazolam (Xanax) 0.5 mg PRN Q6HRS PRN PO ANXIETY / AGITATION Last administered on 02/09/17 08:43; Start 02/08/17 at 19:45; Stop 02/09/17 at 10 :55; Status DC Ceftriaxone Sodium (Rocephin) 1 gm Q24H IVP Last administered on 02/10/17 21: 24; Start 02/08/17 at 20:00; Stop 02/11/17 at 15:00; Status DC Potassium Chloride (Klor-Con) 40 meq 1X ONCE PO Last administered on 08:43; Start 02/09/17 at 08:15; Stop 02/09/17 at 08:16; Status DC Potassium Chloride (Klor-Con) 40 meq 1X ONCE PO Last administered on 12:23; Start 02/09/17 at 12:00; Stop 02/09/17 at 12:01; Status DC Dobutamine HCl/ Dextrose 250 ml @ 0 mls/hr CONT PRN IV SEE I/O RECORD Last administered on 02/11/17 19:43; Start 02/09/17 at 08:15; Stop 02/12/17 at 09 :53; Status DC Alprazolam (Xanax) 0.25 mg PRN Q6HRS PRN PO ANXIETY / AGITATION Last administered on 02/12/17 09:30; Start 02/09/17 at 11:00; Stop 02/12/17 at 13 :09; Status DC Potassium Chloride (Klor-Con) 40 meq PRN Q4HRS PRN PO for K < 4.0 Last administered on 02/09/17 22:13; Start 02/09/17 at 11:15 Albumin Human 100 ml @ 100 mls/hr 1X ONCE IV Last administered on 02/10/17 12:00; Start 02/10/17 at 12:00; Stop 02/10/17 at 12:59; Status DC Albumin Human 100 ml @ 100 mls/hr 1X ONCE IV Last administered on 02/10/17 21:23; Start 02/10/17 at 20:00; Stop 02/10/17 at 20:59; Status DC Magnesium Sulfate/ Dextrose 50 ml @ 25 mls/hr PRN DAILY PRN IV for Mag < 1.7 on am labs; Start 02/11/17 at 11:30 Cefpodoxime Proxetil (Vantin) 100 mg BID PO Last administered on 02/13/17 13: 27; Start 02/11/17 at 21:00 Heparin Sodium/ Sodium Chloride 1,000 unit 1X ONCE IART Last administered on 02/12/17 13:18; Start 02/12/17 at 13:00; Stop 02/12/17 at 13:05; Status DC Midazolam HCl (Versed) 2 mg 1X ONCE IV Last administered on 02/12/17 13:20; Start 02/12/17 at 13:00; Stop 02/12/17 at 13:05; Status DC Fentanyl Citrate (Fentanyl 2ml Vial) 100 mcg 1X ONCE IV Last administered on 02/12/17 13:20; Start 02/12/17 at 13:00; Stop 02/12/17 at 13:05; Status DC Lidocaine/ Epinephrine (Xylocaine 1%-Epi 1:100,000) 20 ml 1X ONCE IJ Last administered on 02/12/17 13:21; Start 02/12/17 at 13:00; Stop 02/12/17 at 13 :05; Status DC Heparin Sodium (Porcine) (Heparin Sodium) 3,800 unit 1X ONCE INT CAT Last administered on 02/12/17 13:20; Start 02/12/17 at 13:00; Stop 02/12/17 at 13 :05; Status DC Cefazolin Sodium/ Dextrose 50 ml @ 100 mls/hr 1X ONCE IV Last administered on 02/12/17t 13:21; Start 02/12/17 at 13:00; Stop 02/12/17 at 13:29; Status DC Alprazolam (Xanax) 1 mg PRN Q6HRS PRN PO ANXIETY / AGITATION Last administered on 02/13/17t 14:35; Start 02/12/17 at 13:15 Sodium Chloride 1,000 ml @ 1,000 mls/hr Q1H PRN IV hypotension; Start at 18:54; Stop 02/13/17 at 00:53; Status DC Sodium Chloride 1,000 ml @ 400 mls/hr Q2H30M PRN IV PATENCY; Start 02/12/17 at 18:54; Stop 02/13/17 at 06:53; Status DC Info (PHARMACY MONITORING -- do not chart) 1 each PRN DAILY PRN MC SEE COMMENTS ; Start 02/12/17 at 19:00 Sodium Chloride 1,000 ml @ 1,000 mls/hr Q1H PRN IV hypotension; Start at 13:21; Stop 02/13/17 at 19:20 Info (PHARMACY MONITORING -- do not chart) 1 each PRN DAILY PRN MC SEE COMMENTS ; Start 02/13/17 at 13:30 Active Scripts Active Novolog (Insulin Aspart) 100 Unit/1 Ml Cartridge 25 Unit SQ TID 30 Days Metolazone 2.5 Mg Tablet 2.5 Mg PO DAILY Flomax (Tamsulosin Hcl) 0.4 Mg Cap.er.24h 0.4 Mg PO DAILY Reported Trazodone Hcl 100 Mg Tablet 100 Mg PO HS Glipizide 10 Mg Tablet 1 Tab PO BID Spironolactone 25 Mg Tablet 1 Tab PO DAILY Multi-Day Vitamins (Multivitamin) 1 Each Tablet 1 Tab PO DAILY Vitamin D3 (Cholecalciferol (Vitamin D3)) 1,000 Unit Tablet 1 Tab PO DAILY Aspirin 325 Mg Tablet 1 Tab PO DAILY Bumetanide 2 Mg Tablet 1 Tab PO DAILY Lantus Solostar (Insulin Glargine,Hum.rec.anlog) 100 Unit/1 Ml Insuln.pen 75 Unit SQ QHS Clopidogrel (Clopidogrel Bisulfate) 75 Mg Tablet 1 Tab PO DAILY Vitals/I & O Vital Sign - Last 24 Hours 02/12/17 02/12/17 02/12/17 02/12/17 19:26 19:40 19:49 23:23 Temp 98.9 98.8 98.9 98.8 Pulse 63 95 Resp 24 20 B/P (MAP) 97/47 (64) 100/54 (69) Pulse Ox 99 92 94 O2 Delivery Nasal Cannula Nasal Cannula Nasal Cannula Nasal Cannula O2 Flow Rate 3.5 2.0 2.0 02/13/17 02/13/17 02/13/17 02/13/17 03:00 07:00 07:26 08:00 Temp 97.6 98.2 97.6 98.2 Pulse 105 98 Resp 22 20 B/P (MAP) 117/61 (79) 90/50 (63) Pulse Ox 93 96 93 O2 Delivery Nasal Cannula Nasal Cannula Nasal Cannula Nasal Cannula O2 Flow Rate 2.0 2.0 2.0 2.0 02/13/17 14:51 Temp 97.9 97.9 Pulse 53 Resp 20 B/P (MAP) 88/55 (66) Pulse Ox 92 O2 Delivery Nasal Cannula O2 Flow Rate 2.0 Intake and Output 02/12/17 02/12/17 02/13/17 15:00 23:00 07:00 Intake Total 100 ml Output Total 375 ml Balance -275 ml MARYJANE SALCIDO III DO Feb 13, 2017 15:04
--- NOTE | 2017-02-13 16:45 | PDOC ---
PROGRESS NOTES Subjective Subjective Patient is having dialysis done. Is feeling better. Less dyspnea Objective Objective Vital Signs Date Time Temp Pulse Resp B/P (MAP) Pulse Ox O2 Delivery O2 Flow Rate FiO2 02/13/17 15:19 97 Nasal Cannula 2.0 02/13/17 14:51 97.9 53 20 88/55 (66) 97.9 Physical Exam Physical Exam No significant changes in cardiac exam except for this significantly decreased edema Assessment Assessment The patient's acute CHF is improving since the dialysis was started. I agree with the present plan. Problems Medical Problems: (1) CHF (congestive heart failure) Status: Acute Comment Review of Relevant I have reviewed the following items sukumar (where applicable) has been applied. Labs Laboratory Tests Test 02/12/17 04:10 02/12/17 07:24 02/12/17 08:15 02/12/17 11:33 Hemoglobin 9.6 g/dL (13.0-17.5) Sodium Level 123 mmol/L (136-145) Potassium Level 5.1 mmol/L (3.5-5.1) Chloride Level 88 mmol/L (98-107) Carbon Dioxide Level 24 mmol/L (21-32) Anion Gap 11 (6-14) Blood Urea Nitrogen 68 mg/dL (8-26) Creatinine 3.4 mg/dL (0.7-1.3) Estimated GFR (Cockcroft-Gault) 17.7 Glucose Level 303 mg/dL (70-99) Calcium Level 9.7 mg/dL (8.5-10.1) Phosphorus Level 3.6 mg/dL (2.6-4.7) Magnesium Level 2.3 mg/dL (1.8-2.4) Albumin 2.9 g/dL (3.4-5.0) Glucose (Fingerstick) 269 mg/dL (70-99) 292 mg/dL (70-99) Prothrombin Time 14.0 SEC (11.7-14.0) Prothromb Time International Ratio 1.2 (0.8-1.1) Test 02/12/17 18:00 02/12/17 19:13 02/12/17 21:28 02/13/17 04:00 Glucose (Fingerstick) 162 mg/dL (70-99) 77 mg/dL (70-99) 25-Hydroxy Vitamin D Total 38.3 ng/mL (30-100) 39.5 ng/mL (30-100) White Blood Count 10.3 x10^3/uL (4.0-11.0) Red Blood Count 3.55 x10^6/uL (4.30-5.70) Hemoglobin 9.9 g/dL (13.0-17.5) Hematocrit 30.7 % (39.0-53.0) Mean Corpuscular Volume 87 fL (79-100) Mean Corpuscular Hemoglobin 28 pg (25-35) Mean Corpuscular Hemoglobin Concent 32 g/dL (31-37) Red Cell Distribution Width 15.2 % (11.5-14.5) Platelet Count 306 x10^3/uL (140-400) Neutrophils (%) (Auto) 68 % (31-73) Lymphocytes (%) (Auto) 11 % (24-48) Monocytes (%) (Auto) 12 % (0-9) Eosinophils (%) (Auto) 8 % (0-3) Basophils (%) (Auto) 1 % (0-3) Neutrophils # (Auto) 7.1 x10^3uL (1.8-7.7) Lymphocytes # (Auto) 1.1 x10^3/uL (1.0-4.8) Monocytes # (Auto) 1.2 x10^3/uL (0.0-1.1) Eosinophils # (Auto) 0.8 x10^3/uL (0.0-0.7) Basophils # (Auto) 0.1 x10^3/uL (0.0-0.2) Sodium Level 130 mmol/L (136-145) Potassium Level 4.4 mmol/L (3.5-5.1) Chloride Level 92 mmol/L (98-107) Carbon Dioxide Level 29 mmol/L (21-32) Anion Gap 9 (6-14) Blood Urea Nitrogen 43 mg/dL (8-26) Creatinine 3.1 mg/dL (0.7-1.3) Estimated GFR (Cockcroft-Gault) 19.7 Glucose Level 132 mg/dL (70-99) Calcium Level 9.3 mg/dL (8.5-10.1) Phosphorus Level 3.8 mg/dL (2.6-4.7) Magnesium Level 2.4 mg/dL (1.8-2.4) Albumin 2.6 g/dL (3.4-5.0) Test 02/13/17 07:38 02/13/17 13:23 Glucose (Fingerstick) 124 mg/dL (70-99) 175 mg/dL (70-99) Laboratory Tests Test 02/12/17 18:00 02/12/17 19:13 02/12/17 21:28 02/13/17 04:00 Glucose (Fingerstick) 162 mg/dL (70-99) 77 mg/dL (70-99) 25-Hydroxy Vitamin D Total 38.3 ng/mL (30-100) 39.5 ng/mL (30-100) White Blood Count 10.3 x10^3/uL (4.0-11.0) Red Blood Count 3.55 x10^6/uL (4.30-5.70) Hemoglobin 9.9 g/dL (13.0-17.5) Hematocrit 30.7 % (39.0-53.0) Mean Corpuscular Volume 87 fL (79-100) Mean Corpuscular Hemoglobin 28 pg (25-35) Mean Corpuscular Hemoglobin Concent 32 g/dL (31-37) Red Cell Distribution Width 15.2 % (11.5-14.5) Platelet Count 306 x10^3/uL (140-400) Neutrophils (%) (Auto) 68 % (31-73) Lymphocytes (%) (Auto) 11 % (24-48) Monocytes (%) (Auto) 12 % (0-9) Eosinophils (%) (Auto) 8 % (0-3) Basophils (%) (Auto) 1 % (0-3) Neutrophils # (Auto) 7.1 x10^3uL (1.8-7.7) Lymphocytes # (Auto) 1.1 x10^3/uL (1.0-4.8) Monocytes # (Auto) 1.2 x10^3/uL (0.0-1.1) Eosinophils # (Auto) 0.8 x10^3/uL (0.0-0.7) Basophils # (Auto) 0.1 x10^3/uL (0.0-0.2) Sodium Level 130 mmol/L (136-145) Potassium Level 4.4 mmol/L (3.5-5.1) Chloride Level 92 mmol/L (98-107) Carbon Dioxide Level 29 mmol/L (21-32) Anion Gap 9 (6-14) Blood Urea Nitrogen 43 mg/dL (8-26) Creatinine 3.1 mg/dL (0.7-1.3) Estimated GFR (Cockcroft-Gault) 19.7 Glucose Level 132 mg/dL (70-99) Calcium Level 9.3 mg/dL (8.5-10.1) Phosphorus Level 3.8 mg/dL (2.6-4.7) Magnesium Level 2.4 mg/dL (1.8-2.4) Albumin 2.6 g/dL (3.4-5.0) Test 02/13/17 07:38 02/13/17 13:23 Glucose (Fingerstick) 124 mg/dL (70-99) 175 mg/dL (70-99) Microbiology 02/08/17 Urine Culture - Final, Complete 02/08/17 Urine Culture Result 1 (RIANNA) - Final, Complete Medications Current Medications Albuterol/ Ipratropium (Duoneb) 3 ml 1X ONCE NEB Last administered on 10:25; Start 02/08/17 at 09:30; Stop 02/08/17 at 09:38; Status DC Nitroglycerin (Nitro-Bid Oint) 1 inch 1X ONCE TP Last administered on 09:45; Start 02/08/17 at 09:30; Stop 02/08/17 at 09:38; Status DC Furosemide (Lasix) 40 mg 1X ONCE IVP Last administered on 02/08/17 09:45; Start 02/08/17 at 09:30; Stop 02/08/17 at 09:38; Status DC Ondansetron HCl (Zofran) 4 mg PRN Q8HRS PRN IV NAUSEA/VOMITING; Start at 11:30; Stop 02/09/17 at 11:29; Status DC Furosemide 100 mg/ Sodium Chloride 100 ml @ 0 mls/hr CONT PRN IV PER PROTOCOL Last administered on 02/12/17 08:37; Start 02/08/17 at 11:30; Stop 02/12/17 at 09:53; Status DC Aspirin (Bhavya Aspirin) 325 mg DAILY PO Last administered on 02/13/17 13:27; Start 02/09/17 at 09:00 Vitamin D (Vitamin D3) 1,000 unit DAILY PO Last administered on 02/13/17 13: 27; Start 02/09/17 at 09:00 Clopidogrel Bisulfate (Plavix) 75 mg DAILY PO Last administered on 02/13/17 13:27; Start 02/09/17 at 09:00 Metolazone (Zaroxolyn) 2.5 mg DAILY PO ; Start 02/09/17 at 09:00; Stop at 09:00; Status DC Spironolactone (Aldactone) 25 mg DAILY PO ; Start 02/09/17 at 09:00; Stop at 13:33; Status DC Tamsulosin HCl (Flomax) 0.4 mg DAILY PO Last administered on 02/13/17 13:27; Start 02/09/17 at 09:00 Trazodone HCl (Desyrel) 100 mg HS PO Last administered on 02/12/17 21:27; Start 02/08/17 at 21:00 Non-Formulary Medication 1 tab DAILY PO ; Start 02/09/17 at 09:00; Stop at 09:00; Status DC Glipizide (Glucotrol) 10 mg BIDBFRMEAL PO Last administered on 02/13/17 13:27 ; Start 02/09/17 at 17:00 Insulin Aspart (NovoLOG) 20 units TIDAC SQ Last administered on 02/13/17 13: 33; Start 02/08/17 at 16:30 Insulin Detemir (Levemir) 60 units QHS SQ Last administered on 02/12/17 21:53 ; Start 02/08/17 at 21:00 Multivitamins (Thera M Plus) 1 tab DAILY PO Last administered on 02/13/17 13: 27; Start 02/09/17 at 09:00 Acetaminophen (Tylenol) 650 mg PRN Q6HRS PRN PO FEVER; Start 02/08/17 at 16:30 Ondansetron HCl (Zofran) 4 mg PRN Q6HRS PRN IV NAUSEA/VOMITING; Start at 16:30 Morphine Sulfate 2 mg PRN Q2HR PRN IV PAIN; Start 02/08/17 at 16:30 Tramadol HCl (Ultram) 50 mg PRN Q6HRS PRN PO PAIN Last administered on 21:24; Start 02/08/17 at 16:30 Hydralazine HCl (Apresoline Inj) 10 mg PRN Q4HRS PRN IVP ELEVATED BP, SEE COMMENTS; Start 02/08/17 at 16:30 Docusate Sodium (Colace) 100 mg PRN DAILY PRN PO CONSTIPATION Last administered on 02/11/17 09:14; Start 02/08/17 at 16:30 Insulin Aspart (NovoLOG) 0-9 UNITS TIDWMEALS SQ Last administered on 18:17; Start 02/08/17 at 17:00 Dextrose (Dextrose 50%-Water Syringe) 12.5 gm PRN Q15MIN PRN IV SEE COMMENTS; Start 02/08/17 at 16:30 Albuterol Sulfate (Ventolin Neb Soln) 2.5 mg PRN Q4HRS PRN NEB SHORTNESS OF BREATH Last administered on 02/10/17 04:31; Start 02/08/17 at 16:30 Albuterol/ Ipratropium (Duoneb) 3 ml RTQID NEB Last administered on 02/13/17 15:19; Start 02/08/17 at 17:00 Heparin Sodium (Porcine) (Heparin Sq) 5,000 unit Q8HRS SQ Last administered on 02/13/17 13:34; Start 02/08/17 at 22:00 Alprazolam (Xanax) 0.25 mg PRN BID PRN PO ANXIETY / AGITATION Last administered on 02/08/17 17:52; Start 02/08/17 at 17:15; Stop 02/08/17 at 19 :44; Status DC Ceftriaxone Sodium 50 ml @ 100 mls/hr DAILY IV ; Start 02/09/17 at 09:00; Status UNV Alprazolam (Xanax) 0.5 mg PRN Q6HRS PRN PO ANXIETY / AGITATION Last administered on 02/09/17 08:43; Start 02/08/17 at 19:45; Stop 02/09/17 at 10 :55; Status DC Ceftriaxone Sodium (Rocephin) 1 gm Q24H IVP Last administered on 02/10/17 21: 24; Start 02/08/17 at 20:00; Stop 02/11/17 at 15:00; Status DC Potassium Chloride (Klor-Con) 40 meq 1X ONCE PO Last administered on 08:43; Start 02/09/17 at 08:15; Stop 02/09/17 at 08:16; Status DC Potassium Chloride (Klor-Con) 40 meq 1X ONCE PO Last administered on 12:23; Start 02/09/17 at 12:00; Stop 02/09/17 at 12:01; Status DC Dobutamine HCl/ Dextrose 250 ml @ 0 mls/hr CONT PRN IV SEE I/O RECORD Last administered on 02/11/17 19:43; Start 02/09/17 at 08:15; Stop 02/12/17 at 09 :53; Status DC Alprazolam (Xanax) 0.25 mg PRN Q6HRS PRN PO ANXIETY / AGITATION Last administered on 02/12/17 09:30; Start 02/09/17 at 11:00; Stop 02/12/17 at 13 :09; Status DC Potassium Chloride (Klor-Con) 40 meq PRN Q4HRS PRN PO for K < 4.0 Last administered on 02/09/17 22:13; Start 02/09/17 at 11:15 Albumin Human 100 ml @ 100 mls/hr 1X ONCE IV Last administered on 02/10/17 12:00; Start 02/10/17 at 12:00; Stop 02/10/17 at 12:59; Status DC Albumin Human 100 ml @ 100 mls/hr 1X ONCE IV Last administered on 02/10/17 21:23; Start 02/10/17 at 20:00; Stop 02/10/17 at 20:59; Status DC Magnesium Sulfate/ Dextrose 50 ml @ 25 mls/hr PRN DAILY PRN IV for Mag < 1.7 on am labs; Start 02/11/17 at 11:30 Cefpodoxime Proxetil (Vantin) 100 mg BID PO Last administered on 02/13/17 13: 27; Start 02/11/17 at 21:00 Heparin Sodium/ Sodium Chloride 1,000 unit 1X ONCE IART Last administered on 02/12/17 13:18; Start 02/12/17 at 13:00; Stop 02/12/17 at 13:05; Status DC Midazolam HCl (Versed) 2 mg 1X ONCE IV Last administered on 02/12/17 13:20; Start 02/12/17 at 13:00; Stop 02/12/17 at 13:05; Status DC Fentanyl Citrate (Fentanyl 2ml Vial) 100 mcg 1X ONCE IV Last administered on 02/12/17 13:20; Start 02/12/17 at 13:00; Stop 02/12/17 at 13:05; Status DC Lidocaine/ Epinephrine (Xylocaine 1%-Epi 1:100,000) 20 ml 1X ONCE IJ Last administered on 02/12/17 13:21; Start 02/12/17 at 13:00; Stop 02/12/17 at 13 :05; Status DC Heparin Sodium (Porcine) (Heparin Sodium) 3,800 unit 1X ONCE INT CAT Last administered on 02/12/17 13:20; Start 02/12/17 at 13:00; Stop 02/12/17 at 13 :05; Status DC Cefazolin Sodium/ Dextrose 50 ml @ 100 mls/hr 1X ONCE IV Last administered on 02/12/17 13:21; Start 02/12/17 at 13:00; Stop 02/12/17 at 13:29; Status DC Alprazolam (Xanax) 1 mg PRN Q6HRS PRN PO ANXIETY / AGITATION Last administered on 02/13/17 14:35; Start 02/12/17 at 13:15 Sodium Chloride 1,000 ml @ 1,000 mls/hr Q1H PRN IV hypotension; Start at 18:54; Stop 02/13/17 at 00:53; Status DC Sodium Chloride 1,000 ml @ 400 mls/hr Q2H30M PRN IV PATENCY; Start 02/12/17 at 18:54; Stop 02/13/17 at 06:53; Status DC Info (PHARMACY MONITORING -- do not chart) 1 each PRN DAILY PRN MC SEE COMMENTS ; Start 02/12/17 at 19:00 Sodium Chloride 1,000 ml @ 1,000 mls/hr Q1H PRN IV hypotension; Start at 13:21; Stop 02/13/17 at 19:20 Info (PHARMACY MONITORING -- do not chart) 1 each PRN DAILY PRN MC SEE COMMENTS ; Start 02/13/17 at 13:30 Active Scripts Active Novolog (Insulin Aspart) 100 Unit/1 Ml Cartridge 25 Unit SQ TID 30 Days Metolazone 2.5 Mg Tablet 2.5 Mg PO DAILY Flomax (Tamsulosin Hcl) 0.4 Mg Cap.er.24h 0.4 Mg PO DAILY Reported Trazodone Hcl 100 Mg Tablet 100 Mg PO HS Glipizide 10 Mg Tablet 1 Tab PO BID Spironolactone 25 Mg Tablet 1 Tab PO DAILY Multi-Day Vitamins (Multivitamin) 1 Each Tablet 1 Tab PO DAILY Vitamin D3 (Cholecalciferol (Vitamin D3)) 1,000 Unit Tablet 1 Tab PO DAILY Aspirin 325 Mg Tablet 1 Tab PO DAILY Bumetanide 2 Mg Tablet 1 Tab PO DAILY Lantus Solostar (Insulin Glargine,Hum.rec.anlog) 100 Unit/1 Ml Insuln.pen 75 Unit SQ QHS Clopidogrel (Clopidogrel Bisulfate) 75 Mg Tablet 1 Tab PO DAILY Vitals/I & O Vital Sign - Last 24 Hours 02/12/17 02/12/17 02/12/17 02/12/17 19:26 19:40 19:49 23:23 Temp 98.9 98.8 98.9 98.8 Pulse 63 95 Resp 24 20 B/P (MAP) 97/47 (64) 100/54 (69) Pulse Ox 99 92 94 O2 Delivery Nasal Cannula Nasal Cannula Nasal Cannula Nasal Cannula O2 Flow Rate 3.5 2.0 2.0 02/13/17 02/13/17 02/13/17 02/13/17 03:00 07:00 07:26 08:00 Temp 97.6 98.2 97.6 98.2 Pulse 105 98 Resp 22 20 B/P (MAP) 117/61 (79) 90/50 (63) Pulse Ox 93 96 93 O2 Delivery Nasal Cannula Nasal Cannula Nasal Cannula Nasal Cannula O2 Flow Rate 2.0 2.0 2.0 2.0 02/13/17 02/13/17 14:51 15:19 Temp 97.9 97.9 Pulse 53 Resp 20 B/P (MAP) 88/55 (66) Pulse Ox 92 97 O2 Delivery Nasal Cannula Nasal Cannula O2 Flow Rate 2.0 2.0 OKSANA JOSEPH MD Feb 13, 2017 16:44
[2017-02-13 19:13] VITALS: BP 100/69
[2017-02-13] MEDS: traZODone 100 MG TABLET. PO SCH (21:39)
[2017-02-13] MEDS: INSULIN DETEMIR 300 UNITS/3 ML INSULN.PEN. SQ SCH (21:40)
[2017-02-13 23:50] VITALS: BP 103/62
[2017-02-14 03:43] VITALS: BP 112/63
[2017-02-14] MEDS: ALPRAZolam 1 MG TABLET PO PRN ×2 (03:45→21:18)
[2017-02-14 05:05] LABS: BASO # 0.1 x10^3/uL (0.0-0.2); BASO % 1 % (0-3); EOS % 10 % (0-3); HEMATOCRIT 28.6 % (39.0-53.0); HEMOGLOBIN 9.4 g/dL (13.0-17.5); LYMPH # 1.2 x10^3/uL (1.0-4.8); LYMPH % 11 % (24-48); MEAN CORPUSCULAR HEMOGLOBIN 29 pg (25-35); MEAN CORPUSCULAR HGB CONC 33 g/dL (31-37); MEAN CORPUSCULAR VOLUME 86 fL (79-100); MONO % 11 % (0-9); NEUT % 68 % (31-73); PLATELET COUNT 292 x10^3/uL (140-400); RED BLOOD COUNT 3.31 x10^6/uL (4.30-5.70); RED CELL DISTRIBUTION WIDTH 15.5 % (11.5-14.5); WHITE BLOOD COUNT 10.9 x10^3/uL (4.0-11.0)
[2017-02-14 05:43] LABS: ALBUMIN 2.4 g/dL (3.4-5.0); CALCIUM 8.6 mg/dL (8.5-10.1); CREATININE 3.4 mg/dL (0.7-1.3); GFR 17.7; MAGNESIUM 2.2 mg/dL (1.8-2.4); PHOSPHORUS 3.9 mg/dL (2.6-4.7); POTASSIUM 4.6 mmol/L (3.5-5.1)
[2017-02-14] MEDS: HEPARIN PF for SUB-Q USE 5,000 UNIT/0.5 ML VIAL. SQ SCH ×3 (06:40→21:21)
[2017-02-14 07:00] VITALS: BP 105/67
[2017-02-14] MEDS: IPRATRPIUM/ALBUTEROL 0.5/2.5MG 3 ML NEBU. NEB SCH ×4 (08:14→19:11)
[2017-02-14] MEDS: ASPIRIN 325 MG TABLET PO SCH (08:24)
[2017-02-14] MEDS: CEFPODOXIME PROXETIL 100 MG TABLET. PO SCH ×2 (08:24→21:18)
[2017-02-14] MEDS: CHOLECALCIFEROL (VITAMIN D3) 1,000 UNIT TABLET PO SCH (08:24)
[2017-02-14] MEDS: MULTIVITAMIN with MINERAL TABLET. PO SCH (08:24)
[2017-02-14] MEDS: CLOPIDOGREL BISULFATE 75 MG TABLET PO SCH (08:25)
[2017-02-14] MEDS: glipiZIDE 5 MG TABLET PO SCH ×2 (08:25→16:30)
[2017-02-14] MEDS: TAMSULOSIN 0.4 MG CAP.ER.24H. PO SCH (08:25)
[2017-02-14] MEDS: INSULIN ASPART 300 UNITS/3 ML INSULN.PEN SQ SCH ×6 (08:29→17:00)
--- NOTE | 2017-02-14 10:17 | PDOC ---
PROGRESS NOTES Subjective Subjective Patient resting, situation discussed with the son Objective Objective Vital Signs Date Time Temp Pulse Resp B/P (MAP) Pulse Ox O2 Delivery O2 Flow Rate FiO2 02/14/17 08:15 94 Nasal Cannula 2.0 02/14/17 07:00 97.3 86 20 105/67 (80) 97.3 Physical Exam Physical Exam no cardiac changes, less edema Abdomen: Normal bowel sounds Heart: Regular rate, Normal S1 Extremities: Other (2+ edema ) General: Alert, Oriented X3 Lungs: Clear to auscultation Neck: No JVD Assessment Assessment CHF improving, patient will need to be discharged to long-term for rehab services. Comment Review of Relevant I have reviewed the following items sukumar (where applicable) has been applied. Labs Laboratory Tests Test 02/12/17 11:33 02/12/17 18:00 02/12/17 19:13 02/12/17 21:28 Glucose (Fingerstick) 292 mg/dL (70-99) 162 mg/dL (70-99) 77 mg/dL (70-99) 25-Hydroxy Vitamin D Total 38.3 ng/mL (30-100) Test 02/13/17 04:00 02/13/17 07:38 02/13/17 13:23 02/13/17 16:58 White Blood Count 10.3 x10^3/uL (4.0-11.0) Red Blood Count 3.55 x10^6/uL (4.30-5.70) Hemoglobin 9.9 g/dL (13.0-17.5) Hematocrit 30.7 % (39.0-53.0) Mean Corpuscular Volume 87 fL (79-100) Mean Corpuscular Hemoglobin 28 pg (25-35) Mean Corpuscular Hemoglobin Concent 32 g/dL (31-37) Red Cell Distribution Width 15.2 % (11.5-14.5) Platelet Count 306 x10^3/uL (140-400) Neutrophils (%) (Auto) 68 % (31-73) Lymphocytes (%) (Auto) 11 % (24-48) Monocytes (%) (Auto) 12 % (0-9) Eosinophils (%) (Auto) 8 % (0-3) Basophils (%) (Auto) 1 % (0-3) Neutrophils # (Auto) 7.1 x10^3uL (1.8-7.7) Lymphocytes # (Auto) 1.1 x10^3/uL (1.0-4.8) Monocytes # (Auto) 1.2 x10^3/uL (0.0-1.1) Eosinophils # (Auto) 0.8 x10^3/uL (0.0-0.7) Basophils # (Auto) 0.1 x10^3/uL (0.0-0.2) Sodium Level 130 mmol/L (136-145) Potassium Level 4.4 mmol/L (3.5-5.1) Chloride Level 92 mmol/L (98-107) Carbon Dioxide Level 29 mmol/L (21-32) Anion Gap 9 (6-14) Blood Urea Nitrogen 43 mg/dL (8-26) Creatinine 3.1 mg/dL (0.7-1.3) Estimated GFR (Cockcroft-Gault) 19.7 Glucose Level 132 mg/dL (70-99) Calcium Level 9.3 mg/dL (8.5-10.1) Phosphorus Level 3.8 mg/dL (2.6-4.7) Magnesium Level 2.4 mg/dL (1.8-2.4) Albumin 2.6 g/dL (3.4-5.0) 25-Hydroxy Vitamin D Total 39.5 ng/mL (30-100) Glucose (Fingerstick) 124 mg/dL (70-99) 175 mg/dL (70-99) 295 mg/dL (70-99) Test 02/13/17 21:12 02/14/17 04:20 02/14/17 08:03 Glucose (Fingerstick) 184 mg/dL (70-99) 219 mg/dL (70-99) White Blood Count 10.9 x10^3/uL (4.0-11.0) Red Blood Count 3.31 x10^6/uL (4.30-5.70) Hemoglobin 9.4 g/dL (13.0-17.5) Hematocrit 28.6 % (39.0-53.0) Mean Corpuscular Volume 86 fL (79-100) Mean Corpuscular Hemoglobin 29 pg (25-35) Mean Corpuscular Hemoglobin Concent 33 g/dL (31-37) Red Cell Distribution Width 15.5 % (11.5-14.5) Platelet Count 292 x10^3/uL (140-400) Neutrophils (%) (Auto) 68 % (31-73) Lymphocytes (%) (Auto) 11 % (24-48) Monocytes (%) (Auto) 11 % (0-9) Eosinophils (%) (Auto) 10 % (0-3) Basophils (%) (Auto) 1 % (0-3) Neutrophils # (Auto) 7.4 x10^3uL (1.8-7.7) Lymphocytes # (Auto) 1.2 x10^3/uL (1.0-4.8) Monocytes # (Auto) 1.2 x10^3/uL (0.0-1.1) Eosinophils # (Auto) 1.0 x10^3/uL (0.0-0.7) Basophils # (Auto) 0.1 x10^3/uL (0.0-0.2) Sodium Level 131 mmol/L (136-145) Potassium Level 4.6 mmol/L (3.5-5.1) Chloride Level 94 mmol/L (98-107) Carbon Dioxide Level 29 mmol/L (21-32) Anion Gap 8 (6-14) Blood Urea Nitrogen 38 mg/dL (8-26) Creatinine 3.4 mg/dL (0.7-1.3) Estimated GFR (Cockcroft-Gault) 17.7 Glucose Level 199 mg/dL (70-99) Calcium Level 8.6 mg/dL (8.5-10.1) Phosphorus Level 3.9 mg/dL (2.6-4.7) Magnesium Level 2.2 mg/dL (1.8-2.4) Albumin 2.4 g/dL (3.4-5.0) Laboratory Tests Test 02/13/17 13:23 02/13/17 16:58 02/13/17 21:12 02/14/17 04:20 Glucose (Fingerstick) 175 mg/dL (70-99) 295 mg/dL (70-99) 184 mg/dL (70-99) White Blood Count 10.9 x10^3/uL (4.0-11.0) Red Blood Count 3.31 x10^6/uL (4.30-5.70) Hemoglobin 9.4 g/dL (13.0-17.5) Hematocrit 28.6 % (39.0-53.0) Mean Corpuscular Volume 86 fL (79-100) Mean Corpuscular Hemoglobin 29 pg (25-35) Mean Corpuscular Hemoglobin Concent 33 g/dL (31-37) Red Cell Distribution Width 15.5 % (11.5-14.5) Platelet Count 292 x10^3/uL (140-400) Neutrophils (%) (Auto) 68 % (31-73) Lymphocytes (%) (Auto) 11 % (24-48) Monocytes (%) (Auto) 11 % (0-9) Eosinophils (%) (Auto) 10 % (0-3) Basophils (%) (Auto) 1 % (0-3) Neutrophils # (Auto) 7.4 x10^3uL (1.8-7.7) Lymphocytes # (Auto) 1.2 x10^3/uL (1.0-4.8) Monocytes # (Auto) 1.2 x10^3/uL (0.0-1.1) Eosinophils # (Auto) 1.0 x10^3/uL (0.0-0.7) Basophils # (Auto) 0.1 x10^3/uL (0.0-0.2) Sodium Level 131 mmol/L (136-145) Potassium Level 4.6 mmol/L (3.5-5.1) Chloride Level 94 mmol/L (98-107) Carbon Dioxide Level 29 mmol/L (21-32) Anion Gap 8 (6-14) Blood Urea Nitrogen 38 mg/dL (8-26) Creatinine 3.4 mg/dL (0.7-1.3) Estimated GFR (Cockcroft-Gault) 17.7 Glucose Level 199 mg/dL (70-99) Calcium Level 8.6 mg/dL (8.5-10.1) Phosphorus Level 3.9 mg/dL (2.6-4.7) Magnesium Level 2.2 mg/dL (1.8-2.4) Albumin 2.4 g/dL (3.4-5.0) Test 02/14/17 08:03 Glucose (Fingerstick) 219 mg/dL (70-99) Microbiology 02/08/17 Urine Culture - Final, Complete 02/08/17 Urine Culture Result 1 (RIANNA) - Final, Complete Medications Current Medications Albuterol/ Ipratropium (Duoneb) 3 ml 1X ONCE NEB Last administered on 10:25; Start 02/08/17 at 09:30; Stop 02/08/17 at 09:38; Status DC Nitroglycerin (Nitro-Bid Oint) 1 inch 1X ONCE TP Last administered on 09:45; Start 02/08/17 at 09:30; Stop 02/08/17 at 09:38; Status DC Furosemide (Lasix) 40 mg 1X ONCE IVP Last administered on 02/08/17 09:45; Start 02/08/17 at 09:30; Stop 02/08/17 at 09:38; Status DC Ondansetron HCl (Zofran) 4 mg PRN Q8HRS PRN IV NAUSEA/VOMITING; Start at 11:30; Stop 02/09/17 at 11:29; Status DC Furosemide 100 mg/ Sodium Chloride 100 ml @ 0 mls/hr CONT PRN IV PER PROTOCOL Last administered on 02/12/17 08:37; Start 02/08/17 at 11:30; Stop 02/12/17 at 09:53; Status DC Aspirin (Bhavya Aspirin) 325 mg DAILY PO Last administered on 02/14/17 08:24; Start 02/09/17 at 09:00 Vitamin D (Vitamin D3) 1,000 unit DAILY PO Last administered on 02/14/17 08: 24; Start 02/09/17 at 09:00 Clopidogrel Bisulfate (Plavix) 75 mg DAILY PO Last administered on 02/14/17 08:25; Start 02/09/17 at 09:00 Metolazone (Zaroxolyn) 2.5 mg DAILY PO ; Start 02/09/17 at 09:00; Stop at 09:00; Status DC Spironolactone (Aldactone) 25 mg DAILY PO ; Start 02/09/17 at 09:00; Stop at 13:33; Status DC Tamsulosin HCl (Flomax) 0.4 mg DAILY PO Last administered on 02/14/17 08:25; Start 02/09/17 at 09:00 Trazodone HCl (Desyrel) 100 mg HS PO Last administered on 02/13/17 21:39; Start 02/08/17 at 21:00 Non-Formulary Medication 1 tab DAILY PO ; Start 02/09/17 at 09:00; Stop at 09:00; Status DC Glipizide (Glucotrol) 10 mg BIDBFRMEAL PO Last administered on 02/14/17 08:25 ; Start 02/09/17 at 17:00 Insulin Aspart (NovoLOG) 20 units TIDAC SQ Last administered on 02/14/17 08: 29; Start 02/08/17 at 16:30 Insulin Detemir (Levemir) 60 units QHS SQ Last administered on 02/13/17 21:40 ; Start 02/08/17 at 21:00 Multivitamins (Thera M Plus) 1 tab DAILY PO Last administered on 02/14/17 08: 24; Start 02/09/17 at 09:00 Acetaminophen (Tylenol) 650 mg PRN Q6HRS PRN PO FEVER; Start 02/08/17 at 16:30 Ondansetron HCl (Zofran) 4 mg PRN Q6HRS PRN IV NAUSEA/VOMITING; Start at 16:30 Morphine Sulfate 2 mg PRN Q2HR PRN IV PAIN; Start 02/08/17 at 16:30 Tramadol HCl (Ultram) 50 mg PRN Q6HRS PRN PO PAIN Last administered on 21:24; Start 02/08/17 at 16:30 Hydralazine HCl (Apresoline Inj) 10 mg PRN Q4HRS PRN IVP ELEVATED BP, SEE COMMENTS; Start 02/08/17 at 16:30 Docusate Sodium (Colace) 100 mg PRN DAILY PRN PO CONSTIPATION Last administered on 02/11/17 09:14; Start 02/08/17 at 16:30 Insulin Aspart (NovoLOG) 0-9 UNITS TIDWMEALS SQ Last administered on 08:29; Start 02/08/17 at 17:00 Dextrose (Dextrose 50%-Water Syringe) 12.5 gm PRN Q15MIN PRN IV SEE COMMENTS; Start 02/08/17 at 16:30 Albuterol Sulfate (Ventolin Neb Soln) 2.5 mg PRN Q4HRS PRN NEB SHORTNESS OF BREATH Last administered on 02/10/17 04:31; Start 02/08/17 at 16:30 Albuterol/ Ipratropium (Duoneb) 3 ml RTQID NEB Last administered on 02/14/17 08:14; Start 02/08/17 at 17:00 Heparin Sodium (Porcine) (Heparin Sq) 5,000 unit Q8HRS SQ Last administered on 02/14/17 06:40; Start 02/08/17 at 22:00 Alprazolam (Xanax) 0.25 mg PRN BID PRN PO ANXIETY / AGITATION Last administered on 02/08/17 17:52; Start 02/08/17 at 17:15; Stop 02/08/17 at 19 :44; Status DC Ceftriaxone Sodium 50 ml @ 100 mls/hr DAILY IV ; Start 02/09/17 at 09:00; Status UNV Alprazolam (Xanax) 0.5 mg PRN Q6HRS PRN PO ANXIETY / AGITATION Last administered on 02/09/17 08:43; Start 02/08/17 at 19:45; Stop 02/09/17 at 10 :55; Status DC Ceftriaxone Sodium (Rocephin) 1 gm Q24H IVP Last administered on 02/10/17 21: 24; Start 02/08/17 at 20:00; Stop 02/11/17 at 15:00; Status DC Potassium Chloride (Klor-Con) 40 meq 1X ONCE PO Last administered on 08:43; Start 02/09/17 at 08:15; Stop 02/09/17 at 08:16; Status DC Potassium Chloride (Klor-Con) 40 meq 1X ONCE PO Last administered on 12:23; Start 02/09/17 at 12:00; Stop 02/09/17 at 12:01; Status DC Dobutamine HCl/ Dextrose 250 ml @ 0 mls/hr CONT PRN IV SEE I/O RECORD Last administered on 02/11/17 19:43; Start 02/09/17 at 08:15; Stop 02/12/17 at 09 :53; Status DC Alprazolam (Xanax) 0.25 mg PRN Q6HRS PRN PO ANXIETY / AGITATION Last administered on 02/12/17 09:30; Start 02/09/17 at 11:00; Stop 02/12/17 at 13 :09; Status DC Potassium Chloride (Klor-Con) 40 meq PRN Q4HRS PRN PO for K < 4.0 Last administered on 02/09/17 22:13; Start 02/09/17 at 11:15 Albumin Human 100 ml @ 100 mls/hr 1X ONCE IV Last administered on 02/10/17 12:00; Start 02/10/17 at 12:00; Stop 02/10/17 at 12:59; Status DC Albumin Human 100 ml @ 100 mls/hr 1X ONCE IV Last administered on 02/10/17 21:23; Start 02/10/17 at 20:00; Stop 02/10/17 at 20:59; Status DC Magnesium Sulfate/ Dextrose 50 ml @ 25 mls/hr PRN DAILY PRN IV for Mag < 1.7 on am labs; Start 02/11/17 at 11:30 Cefpodoxime Proxetil (Vantin) 100 mg BID PO Last administered on 02/14/17 08: 24; Start 02/11/17 at 21:00 Heparin Sodium/ Sodium Chloride 1,000 unit 1X ONCE IART Last administered on 02/12/17 13:18; Start 02/12/17 at 13:00; Stop 02/12/17 at 13:05; Status DC Midazolam HCl (Versed) 2 mg 1X ONCE IV Last administered on 02/12/17 13:20; Start 02/12/17 at 13:00; Stop 02/12/17 at 13:05; Status DC Fentanyl Citrate (Fentanyl 2ml Vial) 100 mcg 1X ONCE IV Last administered on 02/12/17 13:20; Start 02/12/17 at 13:00; Stop 02/12/17 at 13:05; Status DC Lidocaine/ Epinephrine (Xylocaine 1%-Epi 1:100,000) 20 ml 1X ONCE IJ Last administered on 02/12/17 13:21; Start 02/12/17 at 13:00; Stop 02/12/17 at 13 :05; Status DC Heparin Sodium (Porcine) (Heparin Sodium) 3,800 unit 1X ONCE INT CAT Last administered on 02/12/17 13:20; Start 02/12/17 at 13:00; Stop 02/12/17 at 13 :05; Status DC Cefazolin Sodium/ Dextrose 50 ml @ 100 mls/hr 1X ONCE IV Last administered on 02/12/17 13:21; Start 02/12/17 at 13:00; Stop 02/12/17 at 13:29; Status DC Alprazolam (Xanax) 1 mg PRN Q6HRS PRN PO ANXIETY / AGITATION Last administered on 02/14/17 03:45; Start 02/12/17 at 13:15 Sodium Chloride 1,000 ml @ 1,000 mls/hr Q1H PRN IV hypotension; Start at 18:54; Stop 02/13/17 at 00:53; Status DC Sodium Chloride 1,000 ml @ 400 mls/hr Q2H30M PRN IV PATENCY; Start 02/12/17 at 18:54; Stop 02/13/17 at 06:53; Status DC Info (PHARMACY MONITORING -- do not chart) 1 each PRN DAILY PRN MC SEE COMMENTS ; Start 02/12/17 at 19:00 Sodium Chloride 1,000 ml @ 1,000 mls/hr Q1H PRN IV hypotension; Start at 13:21; Stop 02/13/17 at 19:20; Status DC Info (PHARMACY MONITORING -- do not chart) 1 each PRN DAILY PRN MC SEE COMMENTS ; Start 02/13/17 at 13:30 Active Scripts Active Novolog (Insulin Aspart) 100 Unit/1 Ml Cartridge 25 Unit SQ TID 30 Days Metolazone 2.5 Mg Tablet 2.5 Mg PO DAILY Flomax (Tamsulosin Hcl) 0.4 Mg Cap.er.24h 0.4 Mg PO DAILY Reported Trazodone Hcl 100 Mg Tablet 100 Mg PO HS Glipizide 10 Mg Tablet 1 Tab PO BID Spironolactone 25 Mg Tablet 1 Tab PO DAILY Multi-Day Vitamins (Multivitamin) 1 Each Tablet 1 Tab PO DAILY Vitamin D3 (Cholecalciferol (Vitamin D3)) 1,000 Unit Tablet 1 Tab PO DAILY Aspirin 325 Mg Tablet 1 Tab PO DAILY Bumetanide 2 Mg Tablet 1 Tab PO DAILY Lantus Solostar (Insulin Glargine,Hum.rec.anlog) 100 Unit/1 Ml Insuln.pen 75 Unit SQ QHS Clopidogrel (Clopidogrel Bisulfate) 75 Mg Tablet 1 Tab PO DAILY Vitals/I & O Vital Sign - Last 24 Hours 02/13/17 02/13/17 02/13/17 02/13/17 14:51 15:19 19:13 20:00 Temp 97.9 98.3 97.9 98.3 Pulse 53 74 Resp 20 20 B/P (MAP) 88/55 (66) 100/69 (79) Pulse Ox 92 97 93 O2 Delivery Nasal Cannula Nasal Cannula Nasal Cannula Nasal Cannula O2 Flow Rate 2.0 2.0 2.0 2.0 02/13/17 02/13/17 02/14/17 02/14/17 20:03 23:50 03:43 07:00 Temp 97.8 98.3 97.3 97.8 98.3 97.3 Pulse 90 84 86 Resp 20 22 20 B/P (MAP) 103/62 (76) 112/63 (79) 105/67 (80) Pulse Ox 96 95 94 93 O2 Delivery Nasal Cannula Nasal Cannula Nasal Cannula Nasal Cannula O2 Flow Rate 2.0 2.0 2.0 2.0 02/14/17 02/14/17 08:15 08:15 Pulse Ox 94 O2 Delivery Nasal Cannula Nasal Cannula O2 Flow Rate 2.0 2.0 OKSANA JOSEPH MD Feb 14, 2017 10:17
[2017-02-14 11:00] VITALS: BP 90/58
--- NOTE | 2017-02-14 11:15 | PDOC ---
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 Srivastava catheter still in place. Tomorrow will be day 3 of dialysis. Vitals Vitals Vital Signs Date Time Temp Pulse Resp B/P (MAP) Pulse Ox O2 Delivery O2 Flow Rate FiO2 02/14/17 08:15 94 Nasal Cannula 2.0 02/14/17 07:00 97.3 86 20 105/67 (80) 97.3 Physical Exam Physical Exam Srivastava catheter in place General: No acute distress, Other (Asleep) Heart: Regular rate, Normal S1, Normal S2 Lungs: Clear Labs LABS Laboratory Tests Test 02/13/17 13:23 02/13/17 16:58 02/13/17 21:12 02/14/17 04:20 Glucose (Fingerstick) 175 mg/dL (70-99) 295 mg/dL (70-99) 184 mg/dL (70-99) White Blood Count 10.9 x10^3/uL (4.0-11.0) Red Blood Count 3.31 x10^6/uL (4.30-5.70) Hemoglobin 9.4 g/dL (13.0-17.5) Hematocrit 28.6 % (39.0-53.0) Mean Corpuscular Volume 86 fL (79-100) Mean Corpuscular Hemoglobin 29 pg (25-35) Mean Corpuscular Hemoglobin Concent 33 g/dL (31-37) Red Cell Distribution Width 15.5 % (11.5-14.5) Platelet Count 292 x10^3/uL (140-400) Neutrophils (%) (Auto) 68 % (31-73) Lymphocytes (%) (Auto) 11 % (24-48) Monocytes (%) (Auto) 11 % (0-9) Eosinophils (%) (Auto) 10 % (0-3) Basophils (%) (Auto) 1 % (0-3) Neutrophils # (Auto) 7.4 x10^3uL (1.8-7.7) Lymphocytes # (Auto) 1.2 x10^3/uL (1.0-4.8) Monocytes # (Auto) 1.2 x10^3/uL (0.0-1.1) Eosinophils # (Auto) 1.0 x10^3/uL (0.0-0.7) Basophils # (Auto) 0.1 x10^3/uL (0.0-0.2) Sodium Level 131 mmol/L (136-145) Potassium Level 4.6 mmol/L (3.5-5.1) Chloride Level 94 mmol/L (98-107) Carbon Dioxide Level 29 mmol/L (21-32) Anion Gap 8 (6-14) Blood Urea Nitrogen 38 mg/dL (8-26) Creatinine 3.4 mg/dL (0.7-1.3) Estimated GFR (Cockcroft-Gault) 17.7 Glucose Level 199 mg/dL (70-99) Calcium Level 8.6 mg/dL (8.5-10.1) Phosphorus Level 3.9 mg/dL (2.6-4.7) Magnesium Level 2.2 mg/dL (1.8-2.4) Albumin 2.4 g/dL (3.4-5.0) Test 02/14/17 08:03 Glucose (Fingerstick) 219 mg/dL (70-99) Review of Systems Review of Systems Unobtainable. 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 Labs Laboratory Tests Test 02/12/17 11:33 02/12/17 18:00 02/12/17 19:13 02/12/17 21:28 Glucose (Fingerstick) 292 mg/dL (70-99) 162 mg/dL (70-99) 77 mg/dL (70-99) 25-Hydroxy Vitamin D Total 38.3 ng/mL (30-100) Test 02/13/17 04:00 02/13/17 07:38 02/13/17 13:23 02/13/17 16:58 White Blood Count 10.3 x10^3/uL (4.0-11.0) Red Blood Count 3.55 x10^6/uL (4.30-5.70) Hemoglobin 9.9 g/dL (13.0-17.5) Hematocrit 30.7 % (39.0-53.0) Mean Corpuscular Volume 87 fL (79-100) Mean Corpuscular Hemoglobin 28 pg (25-35) Mean Corpuscular Hemoglobin Concent 32 g/dL (31-37) Red Cell Distribution Width 15.2 % (11.5-14.5) Platelet Count 306 x10^3/uL (140-400) Neutrophils (%) (Auto) 68 % (31-73) Lymphocytes (%) (Auto) 11 % (24-48) Monocytes (%) (Auto) 12 % (0-9) Eosinophils (%) (Auto) 8 % (0-3) Basophils (%) (Auto) 1 % (0-3) Neutrophils # (Auto) 7.1 x10^3uL (1.8-7.7) Lymphocytes # (Auto) 1.1 x10^3/uL (1.0-4.8) Monocytes # (Auto) 1.2 x10^3/uL (0.0-1.1) Eosinophils # (Auto) 0.8 x10^3/uL (0.0-0.7) Basophils # (Auto) 0.1 x10^3/uL (0.0-0.2) Sodium Level 130 mmol/L (136-145) Potassium Level 4.4 mmol/L (3.5-5.1) Chloride Level 92 mmol/L (98-107) Carbon Dioxide Level 29 mmol/L (21-32) Anion Gap 9 (6-14) Blood Urea Nitrogen 43 mg/dL (8-26) Creatinine 3.1 mg/dL (0.7-1.3) Estimated GFR (Cockcroft-Gault) 19.7 Glucose Level 132 mg/dL (70-99) Calcium Level 9.3 mg/dL (8.5-10.1) Phosphorus Level 3.8 mg/dL (2.6-4.7) Magnesium Level 2.4 mg/dL (1.8-2.4) Albumin 2.6 g/dL (3.4-5.0) 25-Hydroxy Vitamin D Total 39.5 ng/mL (30-100) Glucose (Fingerstick) 124 mg/dL (70-99) 175 mg/dL (70-99) 295 mg/dL (70-99) Test 02/13/17 21:12 02/14/17 04:20 02/14/17 08:03 Glucose (Fingerstick) 184 mg/dL (70-99) 219 mg/dL (70-99) White Blood Count 10.9 x10^3/uL (4.0-11.0) Red Blood Count 3.31 x10^6/uL (4.30-5.70) Hemoglobin 9.4 g/dL (13.0-17.5) Hematocrit 28.6 % (39.0-53.0) Mean Corpuscular Volume 86 fL (79-100) Mean Corpuscular Hemoglobin 29 pg (25-35) Mean Corpuscular Hemoglobin Concent 33 g/dL (31-37) Red Cell Distribution Width 15.5 % (11.5-14.5) Platelet Count 292 x10^3/uL (140-400) Neutrophils (%) (Auto) 68 % (31-73) Lymphocytes (%) (Auto) 11 % (24-48) Monocytes (%) (Auto) 11 % (0-9) Eosinophils (%) (Auto) 10 % (0-3) Basophils (%) (Auto) 1 % (0-3) Neutrophils # (Auto) 7.4 x10^3uL (1.8-7.7) Lymphocytes # (Auto) 1.2 x10^3/uL (1.0-4.8) Monocytes # (Auto) 1.2 x10^3/uL (0.0-1.1) Eosinophils # (Auto) 1.0 x10^3/uL (0.0-0.7) Basophils # (Auto) 0.1 x10^3/uL (0.0-0.2) Sodium Level 131 mmol/L (136-145) Potassium Level 4.6 mmol/L (3.5-5.1) Chloride Level 94 mmol/L (98-107) Carbon Dioxide Level 29 mmol/L (21-32) Anion Gap 8 (6-14) Blood Urea Nitrogen 38 mg/dL (8-26) Creatinine 3.4 mg/dL (0.7-1.3) Estimated GFR (Cockcroft-Gault) 17.7 Glucose Level 199 mg/dL (70-99) Calcium Level 8.6 mg/dL (8.5-10.1) Phosphorus Level 3.9 mg/dL (2.6-4.7) Magnesium Level 2.2 mg/dL (1.8-2.4) Albumin 2.4 g/dL (3.4-5.0) Laboratory Tests Test 02/13/17 13:23 02/13/17 16:58 02/13/17 21:12 02/14/17 04:20 Glucose (Fingerstick) 175 mg/dL (70-99) 295 mg/dL (70-99) 184 mg/dL (70-99) White Blood Count 10.9 x10^3/uL (4.0-11.0) Red Blood Count 3.31 x10^6/uL (4.30-5.70) Hemoglobin 9.4 g/dL (13.0-17.5) Hematocrit 28.6 % (39.0-53.0) Mean Corpuscular Volume 86 fL (79-100) Mean Corpuscular Hemoglobin 29 pg (25-35) Mean Corpuscular Hemoglobin Concent 33 g/dL (31-37) Red Cell Distribution Width 15.5 % (11.5-14.5) Platelet Count 292 x10^3/uL (140-400) Neutrophils (%) (Auto) 68 % (31-73) Lymphocytes (%) (Auto) 11 % (24-48) Monocytes (%) (Auto) 11 % (0-9) Eosinophils (%) (Auto) 10 % (0-3) Basophils (%) (Auto) 1 % (0-3) Neutrophils # (Auto) 7.4 x10^3uL (1.8-7.7) Lymphocytes # (Auto) 1.2 x10^3/uL (1.0-4.8) Monocytes # (Auto) 1.2 x10^3/uL (0.0-1.1) Eosinophils # (Auto) 1.0 x10^3/uL (0.0-0.7) Basophils # (Auto) 0.1 x10^3/uL (0.0-0.2) Sodium Level 131 mmol/L (136-145) Potassium Level 4.6 mmol/L (3.5-5.1) Chloride Level 94 mmol/L (98-107) Carbon Dioxide Level 29 mmol/L (21-32) Anion Gap 8 (6-14) Blood Urea Nitrogen 38 mg/dL (8-26) Creatinine 3.4 mg/dL (0.7-1.3) Estimated GFR (Cockcroft-Gault) 17.7 Glucose Level 199 mg/dL (70-99) Calcium Level 8.6 mg/dL (8.5-10.1) Phosphorus Level 3.9 mg/dL (2.6-4.7) Magnesium Level 2.2 mg/dL (1.8-2.4) Albumin 2.4 g/dL (3.4-5.0) Test 02/14/17 08:03 Glucose (Fingerstick) 219 mg/dL (70-99) Microbiology 02/08/17 Urine Culture - Final, Complete 02/08/17 Urine Culture Result 1 (RIANNA) - Final, Complete Medications Current Medications Albuterol/ Ipratropium (Duoneb) 3 ml 1X ONCE NEB Last administered on 10:25; Start 02/08/17 at 09:30; Stop 02/08/17 at 09:38; Status DC Nitroglycerin (Nitro-Bid Oint) 1 inch 1X ONCE TP Last administered on 09:45; Start 02/08/17 at 09:30; Stop 02/08/17 at 09:38; Status DC Furosemide (Lasix) 40 mg 1X ONCE IVP Last administered on 02/08/17 09:45; Start 02/08/17 at 09:30; Stop 02/08/17 at 09:38; Status DC Ondansetron HCl (Zofran) 4 mg PRN Q8HRS PRN IV NAUSEA/VOMITING; Start at 11:30; Stop 02/09/17 at 11:29; Status DC Furosemide 100 mg/ Sodium Chloride 100 ml @ 0 mls/hr CONT PRN IV PER PROTOCOL Last administered on 02/12/17 08:37; Start 02/08/17 at 11:30; Stop 02/12/17 at 09:53; Status DC Aspirin (Bhavya Aspirin) 325 mg DAILY PO Last administered on 02/14/17 08:24; Start 02/09/17 at 09:00 Vitamin D (Vitamin D3) 1,000 unit DAILY PO Last administered on 02/14/17 08: 24; Start 02/09/17 at 09:00 Clopidogrel Bisulfate (Plavix) 75 mg DAILY PO Last administered on 02/14/17 08:25; Start 02/09/17 at 09:00 Metolazone (Zaroxolyn) 2.5 mg DAILY PO ; Start 02/09/17 at 09:00; Stop at 09:00; Status DC Spironolactone (Aldactone) 25 mg DAILY PO ; Start 02/09/17 at 09:00; Stop at 13:33; Status DC Tamsulosin HCl (Flomax) 0.4 mg DAILY PO Last administered on 02/14/17 08:25; Start 02/09/17 at 09:00 Trazodone HCl (Desyrel) 100 mg HS PO Last administered on 02/13/17 21:39; Start 02/08/17 at 21:00 Non-Formulary Medication 1 tab DAILY PO ; Start 02/09/17 at 09:00; Stop at 09:00; Status DC Glipizide (Glucotrol) 10 mg BIDBFRMEAL PO Last administered on 02/14/17 08:25 ; Start 02/09/17 at 17:00 Insulin Aspart (NovoLOG) 20 units TIDAC SQ Last administered on 02/14/17 08: 29; Start 02/08/17 at 16:30 Insulin Detemir (Levemir) 60 units QHS SQ Last administered on 02/13/17 21:40 ; Start 02/08/17 at 21:00 Multivitamins (Thera M Plus) 1 tab DAILY PO Last administered on 02/14/17 08: 24; Start 02/09/17 at 09:00 Acetaminophen (Tylenol) 650 mg PRN Q6HRS PRN PO FEVER; Start 02/08/17 at 16:30 Ondansetron HCl (Zofran) 4 mg PRN Q6HRS PRN IV NAUSEA/VOMITING; Start at 16:30 Morphine Sulfate 2 mg PRN Q2HR PRN IV PAIN; Start 02/08/17 at 16:30 Tramadol HCl (Ultram) 50 mg PRN Q6HRS PRN PO PAIN Last administered on 21:24; Start 02/08/17 at 16:30 Hydralazine HCl (Apresoline Inj) 10 mg PRN Q4HRS PRN IVP ELEVATED BP, SEE COMMENTS; Start 02/08/17 at 16:30 Docusate Sodium (Colace) 100 mg PRN DAILY PRN PO CONSTIPATION Last administered on 02/11/17 09:14; Start 02/08/17 at 16:30 Insulin Aspart (NovoLOG) 0-9 UNITS TIDWMEALS SQ Last administered on 08:29; Start 02/08/17 at 17:00 Dextrose (Dextrose 50%-Water Syringe) 12.5 gm PRN Q15MIN PRN IV SEE COMMENTS; Start 02/08/17 at 16:30 Albuterol Sulfate (Ventolin Neb Soln) 2.5 mg PRN Q4HRS PRN NEB SHORTNESS OF BREATH Last administered on 02/10/17 04:31; Start 02/08/17 at 16:30 Albuterol/ Ipratropium (Duoneb) 3 ml RTQID NEB Last administered on 02/14/17 08:14; Start 02/08/17 at 17:00 Heparin Sodium (Porcine) (Heparin Sq) 5,000 unit Q8HRS SQ Last administered on 02/14/17 06:40; Start 02/08/17 at 22:00 Alprazolam (Xanax) 0.25 mg PRN BID PRN PO ANXIETY / AGITATION Last administered on 02/08/17 17:52; Start 02/08/17 at 17:15; Stop 02/08/17 at 19 :44; Status DC Ceftriaxone Sodium 50 ml @ 100 mls/hr DAILY IV ; Start 02/09/17 at 09:00; Status UNV Alprazolam (Xanax) 0.5 mg PRN Q6HRS PRN PO ANXIETY / AGITATION Last administered on 02/09/17 08:43; Start 02/08/17 at 19:45; Stop 02/09/17 at 10 :55; Status DC Ceftriaxone Sodium (Rocephin) 1 gm Q24H IVP Last administered on 02/10/17 21: 24; Start 02/08/17 at 20:00; Stop 02/11/17 at 15:00; Status DC Potassium Chloride (Klor-Con) 40 meq 1X ONCE PO Last administered on 08:43; Start 02/09/17 at 08:15; Stop 02/09/17 at 08:16; Status DC Potassium Chloride (Klor-Con) 40 meq 1X ONCE PO Last administered on 12:23; Start 02/09/17 at 12:00; Stop 02/09/17 at 12:01; Status DC Dobutamine HCl/ Dextrose 250 ml @ 0 mls/hr CONT PRN IV SEE I/O RECORD Last administered on 02/11/17 19:43; Start 02/09/17 at 08:15; Stop 02/12/17 at 09 :53; Status DC Alprazolam (Xanax) 0.25 mg PRN Q6HRS PRN PO ANXIETY / AGITATION Last administered on 02/12/17 09:30; Start 02/09/17 at 11:00; Stop 02/12/17 at 13 :09; Status DC Potassium Chloride (Klor-Con) 40 meq PRN Q4HRS PRN PO for K < 4.0 Last administered on 02/09/17 22:13; Start 02/09/17 at 11:15 Albumin Human 100 ml @ 100 mls/hr 1X ONCE IV Last administered on 02/10/17 12:00; Start 02/10/17 at 12:00; Stop 02/10/17 at 12:59; Status DC Albumin Human 100 ml @ 100 mls/hr 1X ONCE IV Last administered on 02/10/17 21:23; Start 02/10/17 at 20:00; Stop 02/10/17 at 20:59; Status DC Magnesium Sulfate/ Dextrose 50 ml @ 25 mls/hr PRN DAILY PRN IV for Mag < 1.7 on am labs; Start 02/11/17 at 11:30 Cefpodoxime Proxetil (Vantin) 100 mg BID PO Last administered on 02/14/17 08: 24; Start 02/11/17 at 21:00 Heparin Sodium/ Sodium Chloride 1,000 unit 1X ONCE IART Last administered on 02/12/17 13:18; Start 02/12/17 at 13:00; Stop 02/12/17 at 13:05; Status DC Midazolam HCl (Versed) 2 mg 1X ONCE IV Last administered on 02/12/17 13:20; Start 02/12/17 at 13:00; Stop 02/12/17 at 13:05; Status DC Fentanyl Citrate (Fentanyl 2ml Vial) 100 mcg 1X ONCE IV Last administered on 02/12/17 13:20; Start 02/12/17 at 13:00; Stop 02/12/17 at 13:05; Status DC Lidocaine/ Epinephrine (Xylocaine 1%-Epi 1:100,000) 20 ml 1X ONCE IJ Last administered on 02/12/17 13:21; Start 02/12/17 at 13:00; Stop 02/12/17 at 13 :05; Status DC Heparin Sodium (Porcine) (Heparin Sodium) 3,800 unit 1X ONCE INT CAT Last administered on 02/12/17 13:20; Start 02/12/17 at 13:00; Stop 02/12/17 at 13 :05; Status DC Cefazolin Sodium/ Dextrose 50 ml @ 100 mls/hr 1X ONCE IV Last administered on 02/12/17 13:21; Start 02/12/17 at 13:00; Stop 02/12/17 at 13:29; Status DC Alprazolam (Xanax) 1 mg PRN Q6HRS PRN PO ANXIETY / AGITATION Last administered on 02/14/17 03:45; Start 02/12/17 at 13:15 Sodium Chloride 1,000 ml @ 1,000 mls/hr Q1H PRN IV hypotension; Start at 18:54; Stop 02/13/17 at 00:53; Status DC Sodium Chloride 1,000 ml @ 400 mls/hr Q2H30M PRN IV PATENCY; Start 02/12/17 at 18:54; Stop 02/13/17 at 06:53; Status DC Info (PHARMACY MONITORING -- do not chart) 1 each PRN DAILY PRN MC SEE COMMENTS ; Start 02/12/17 at 19:00; Stop 02/14/17 at 11:07; Status DC Sodium Chloride 1,000 ml @ 1,000 mls/hr Q1H PRN IV hypotension; Start at 13:21; Stop 02/13/17 at 19:20; Status DC Info (PHARMACY MONITORING -- do not chart) 1 each PRN DAILY PRN MC SEE COMMENTS ; Start 02/13/17 at 13:30 Active Scripts Active Novolog (Insulin Aspart) 100 Unit/1 Ml Cartridge 25 Unit SQ TID 30 Days Metolazone 2.5 Mg Tablet 2.5 Mg PO DAILY Flomax (Tamsulosin Hcl) 0.4 Mg Cap.er.24h 0.4 Mg PO DAILY Reported Trazodone Hcl 100 Mg Tablet 100 Mg PO HS Glipizide 10 Mg Tablet 1 Tab PO BID Spironolactone 25 Mg Tablet 1 Tab PO DAILY Multi-Day Vitamins (Multivitamin) 1 Each Tablet 1 Tab PO DAILY Vitamin D3 (Cholecalciferol (Vitamin D3)) 1,000 Unit Tablet 1 Tab PO DAILY Aspirin 325 Mg Tablet 1 Tab PO DAILY Bumetanide 2 Mg Tablet 1 Tab PO DAILY Lantus Solostar (Insulin Glargine,Hum.rec.anlog) 100 Unit/1 Ml Insuln.pen 75 Unit SQ QHS Clopidogrel (Clopidogrel Bisulfate) 75 Mg Tablet 1 Tab PO DAILY Vitals/I & O Vital Sign - Last 24 Hours 02/13/17 02/13/17 02/13/17 02/13/17 14:51 15:19 19:13 20:00 Temp 97.9 98.3 97.9 98.3 Pulse 53 74 Resp 20 20 B/P (MAP) 88/55 (66) 100/69 (79) Pulse Ox 92 97 93 O2 Delivery Nasal Cannula Nasal Cannula Nasal Cannula Nasal Cannula O2 Flow Rate 2.0 2.0 2.0 2.0 02/13/17 02/13/17 02/14/17 02/14/17 20:03 23:50 03:43 07:00 Temp 97.8 98.3 97.3 97.8 98.3 97.3 Pulse 90 84 86 Resp 20 22 20 B/P (MAP) 103/62 (76) 112/63 (79) 105/67 (80) Pulse Ox 96 95 94 93 O2 Delivery Nasal Cannula Nasal Cannula Nasal Cannula Nasal Cannula O2 Flow Rate 2.0 2.0 2.0 2.0 02/14/17 02/14/17 08:15 08:15 Pulse Ox 94 O2 Delivery Nasal Cannula Nasal Cannula O2 Flow Rate 2.0 2.0 Intake and Output 02/13/17 02/13/17 02/14/17 15:00 23:00 07:00 Intake Total 380 ml 1150 ml Output Total 50 ml Balance 330 ml 1150 ml MARYJANE SALCIDO III DO Feb 14, 2017 11:15
[2017-02-14 15:00] VITALS: BP 91/64
[2017-02-14 19:23] VITALS: BP 105/54
[2017-02-14] MEDS: DOCUSATE SODIUM 100 MG CAPSULE. PO PRN (21:18)
[2017-02-14] MEDS: traZODone 100 MG TABLET. PO SCH (21:18)
[2017-02-14] MEDS: INSULIN DETEMIR 300 UNITS/3 ML INSULN.PEN. SQ SCH (21:20)
[2017-02-14 22:34] VITALS: BP 105/60
[2017-02-15 03:00] VITALS: BP 117/65
[2017-02-15 04:24] LABS: BASO # 0.1 x10^3/uL (0.0-0.2); BASO % 1 % (0-3); EOS % 7 % (0-3); HEMATOCRIT 29.2 % (39.0-53.0); HEMOGLOBIN 9.7 g/dL (13.0-17.5); LYMPH % 10 % (24-48); MEAN CORPUSCULAR HEMOGLOBIN 29 pg (25-35); MEAN CORPUSCULAR HGB CONC 33 g/dL (31-37); MEAN CORPUSCULAR VOLUME 87 fL (79-100); MONO % 10 % (0-9); NEUT % 72 % (31-73); PLATELET COUNT 337 x10^3/uL (140-400); RED BLOOD COUNT 3.37 x10^6/uL (4.30-5.70); RED CELL DISTRIBUTION WIDTH 15.5 % (11.5-14.5); WHITE BLOOD COUNT 10.1 x10^3/uL (4.0-11.0)
[2017-02-15 04:40] LABS: ALBUMIN 2.5 g/dL (3.4-5.0); CALCIUM 8.7 mg/dL (8.5-10.1); CREATININE 3.7 mg/dL (0.7-1.3); GFR 16.1; POTASSIUM 5.1 mmol/L (3.5-5.1)
[2017-02-15] MEDS: HEPARIN PF for SUB-Q USE 5,000 UNIT/0.5 ML VIAL. SQ SCH ×3 (06:01→20:56)
[2017-02-15 07:00] VITALS: BP 123/56
[2017-02-15] MEDS ORDERED: IV NORMAL SALINE 1000ML BAG 1,000 ML IV PRN ×2 (07:46)
[2017-02-15] MEDS: IPRATRPIUM/ALBUTEROL 0.5/2.5MG 3 ML NEBU. NEB SCH ×3 (07:56→20:59)
[2017-02-15] MEDS ORDERED: 0.9 % SODIUM CHLORIDE 10 ML DISP.SYRIN. IV PRN ×2 (08:00)
[2017-02-15] MEDS ORDERED: DIALYSIS PATIENT. MC PRN ×2 (08:00)
[2017-02-15] MEDS: CLOPIDOGREL BISULFATE 75 MG TABLET PO SCH (08:11)
[2017-02-15] MEDS: glipiZIDE 5 MG TABLET PO SCH ×2 (08:11→17:00)
[2017-02-15] MEDS: ASPIRIN 325 MG TABLET PO SCH (08:11)
[2017-02-15] MEDS: MULTIVITAMIN with MINERAL TABLET. PO SCH (08:12)
[2017-02-15] MEDS: ALPRAZolam 1 MG TABLET PO PRN ×2 (08:12→20:47)
[2017-02-15] MEDS: CHOLECALCIFEROL (VITAMIN D3) 1,000 UNIT TABLET PO SCH (08:12)
[2017-02-15] MEDS: TAMSULOSIN 0.4 MG CAP.ER.24H. PO SCH (08:12)
[2017-02-15] MEDS: INSULIN ASPART 300 UNITS/3 ML INSULN.PEN SQ SCH ×6 (08:19→17:01)
--- NOTE | 2017-02-15 12:26 | PDOC ---
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 Dialysis Day 3 Srivastava catheter still in place Pt Fatigued, somnolent Hyponatremic(126), DW nurse NSL infusion . Vitals Vitals Vital Signs Date Time Temp Pulse Resp B/P (MAP) Pulse Ox O2 Delivery O2 Flow Rate FiO2 02/15/17 08:10 Nasal Cannula 2.0 02/15/17 07:57 95 02/15/17 07:00 98.6 95 19 123/56 (78) 98.6 Physical Exam Physical Exam Srivastava catheter in place General: Cooperative, No acute distress, Other (somnolent) Heart: Regular rate, Normal S1, Normal S2 Lungs: Clear Abdomen: Soft, No masses Extremities: No cyanosis, Normal pulses Skin: No rashes, No significant lesion Labs LABS Laboratory Tests Test 02/14/17 16:45 02/14/17 20:33 02/15/17 03:55 02/15/17 07:46 Glucose (Fingerstick) 163 mg/dL (70-99) 270 mg/dL (70-99) 367 mg/dL (70-99) White Blood Count 10.1 x10^3/uL (4.0-11.0) Red Blood Count 3.37 x10^6/uL (4.30-5.70) Hemoglobin 9.7 g/dL (13.0-17.5) Hematocrit 29.2 % (39.0-53.0) Mean Corpuscular Volume 87 fL (79-100) Mean Corpuscular Hemoglobin 29 pg (25-35) Mean Corpuscular Hemoglobin Concent 33 g/dL (31-37) Red Cell Distribution Width 15.5 % (11.5-14.5) Platelet Count 337 x10^3/uL (140-400) Neutrophils (%) (Auto) 72 % (31-73) Lymphocytes (%) (Auto) 10 % (24-48) Monocytes (%) (Auto) 10 % (0-9) Eosinophils (%) (Auto) 7 % (0-3) Basophils (%) (Auto) 1 % (0-3) Neutrophils # (Auto) 7.4 x10^3uL (1.8-7.7) Lymphocytes # (Auto) 1.0 x10^3/uL (1.0-4.8) Monocytes # (Auto) 1.0 x10^3/uL (0.0-1.1) Eosinophils # (Auto) 0.7 x10^3/uL (0.0-0.7) Basophils # (Auto) 0.1 x10^3/uL (0.0-0.2) Sodium Level 126 mmol/L (136-145) Potassium Level 5.1 mmol/L (3.5-5.1) Chloride Level 91 mmol/L (98-107) Carbon Dioxide Level 27 mmol/L (21-32) Anion Gap 8 (6-14) Blood Urea Nitrogen 55 mg/dL (8-26) Creatinine 3.7 mg/dL (0.7-1.3) Estimated GFR (Cockcroft-Gault) 16.1 Glucose Level 438 mg/dL (70-99) Calcium Level 8.7 mg/dL (8.5-10.1) Phosphorus Level 5.0 mg/dL (2.6-4.7) Albumin 2.5 g/dL (3.4-5.0) Test 02/15/17 10:00 25-Hydroxy Vitamin D Total 35.9 ng/mL (30-100) Review of Systems Review of Systems General: No Hunger, Fever, Chills CV: No Chest Pain, Palpitations Assessment and Plan Assessmemt and Plan Assessment: CHF (congestive heart failure) Acute hypoxia Acute on chronic systolic CHF exacerbation COPD DM2 HTN History of CAD with CABG Anxiety 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 Labs Laboratory Tests Test 02/13/17 13:23 02/13/17 16:58 02/13/17 21:12 02/14/17 04:20 Glucose (Fingerstick) 175 mg/dL (70-99) 295 mg/dL (70-99) 184 mg/dL (70-99) White Blood Count 10.9 x10^3/uL (4.0-11.0) Red Blood Count 3.31 x10^6/uL (4.30-5.70) Hemoglobin 9.4 g/dL (13.0-17.5) Hematocrit 28.6 % (39.0-53.0) Mean Corpuscular Volume 86 fL (79-100) Mean Corpuscular Hemoglobin 29 pg (25-35) Mean Corpuscular Hemoglobin Concent 33 g/dL (31-37) Red Cell Distribution Width 15.5 % (11.5-14.5) Platelet Count 292 x10^3/uL (140-400) Neutrophils (%) (Auto) 68 % (31-73) Lymphocytes (%) (Auto) 11 % (24-48) Monocytes (%) (Auto) 11 % (0-9) Eosinophils (%) (Auto) 10 % (0-3) Basophils (%) (Auto) 1 % (0-3) Neutrophils # (Auto) 7.4 x10^3uL (1.8-7.7) Lymphocytes # (Auto) 1.2 x10^3/uL (1.0-4.8) Monocytes # (Auto) 1.2 x10^3/uL (0.0-1.1) Eosinophils # (Auto) 1.0 x10^3/uL (0.0-0.7) Basophils # (Auto) 0.1 x10^3/uL (0.0-0.2) Sodium Level 131 mmol/L (136-145) Potassium Level 4.6 mmol/L (3.5-5.1) Chloride Level 94 mmol/L (98-107) Carbon Dioxide Level 29 mmol/L (21-32) Anion Gap 8 (6-14) Blood Urea Nitrogen 38 mg/dL (8-26) Creatinine 3.4 mg/dL (0.7-1.3) Estimated GFR (Cockcroft-Gault) 17.7 Glucose Level 199 mg/dL (70-99) Calcium Level 8.6 mg/dL (8.5-10.1) Phosphorus Level 3.9 mg/dL (2.6-4.7) Magnesium Level 2.2 mg/dL (1.8-2.4) Albumin 2.4 g/dL (3.4-5.0) Test 02/14/17 08:03 02/14/17 11:53 02/14/17 16:45 02/14/17 20:33 Glucose (Fingerstick) 219 mg/dL (70-99) 235 mg/dL (70-99) 163 mg/dL (70-99) 270 mg/dL (70-99) Test 02/15/17 03:55 02/15/17 07:46 02/15/17 10:00 White Blood Count 10.1 x10^3/uL (4.0-11.0) Red Blood Count 3.37 x10^6/uL (4.30-5.70) Hemoglobin 9.7 g/dL (13.0-17.5) Hematocrit 29.2 % (39.0-53.0) Mean Corpuscular Volume 87 fL (79-100) Mean Corpuscular Hemoglobin 29 pg (25-35) Mean Corpuscular Hemoglobin Concent 33 g/dL (31-37) Red Cell Distribution Width 15.5 % (11.5-14.5) Platelet Count 337 x10^3/uL (140-400) Neutrophils (%) (Auto) 72 % (31-73) Lymphocytes (%) (Auto) 10 % (24-48) Monocytes (%) (Auto) 10 % (0-9) Eosinophils (%) (Auto) 7 % (0-3) Basophils (%) (Auto) 1 % (0-3) Neutrophils # (Auto) 7.4 x10^3uL (1.8-7.7) Lymphocytes # (Auto) 1.0 x10^3/uL (1.0-4.8) Monocytes # (Auto) 1.0 x10^3/uL (0.0-1.1) Eosinophils # (Auto) 0.7 x10^3/uL (0.0-0.7) Basophils # (Auto) 0.1 x10^3/uL (0.0-0.2) Sodium Level 126 mmol/L (136-145) Potassium Level 5.1 mmol/L (3.5-5.1) Chloride Level 91 mmol/L (98-107) Carbon Dioxide Level 27 mmol/L (21-32) Anion Gap 8 (6-14) Blood Urea Nitrogen 55 mg/dL (8-26) Creatinine 3.7 mg/dL (0.7-1.3) Estimated GFR (Cockcroft-Gault) 16.1 Glucose Level 438 mg/dL (70-99) Calcium Level 8.7 mg/dL (8.5-10.1) Phosphorus Level 5.0 mg/dL (2.6-4.7) Albumin 2.5 g/dL (3.4-5.0) Glucose (Fingerstick) 367 mg/dL (70-99) 25-Hydroxy Vitamin D Total 35.9 ng/mL (30-100) Laboratory Tests Test 02/14/17 16:45 02/14/17 20:33 02/15/17 03:55 02/15/17 07:46 Glucose (Fingerstick) 163 mg/dL (70-99) 270 mg/dL (70-99) 367 mg/dL (70-99) White Blood Count 10.1 x10^3/uL (4.0-11.0) Red Blood Count 3.37 x10^6/uL (4.30-5.70) Hemoglobin 9.7 g/dL (13.0-17.5) Hematocrit 29.2 % (39.0-53.0) Mean Corpuscular Volume 87 fL (79-100) Mean Corpuscular Hemoglobin 29 pg (25-35) Mean Corpuscular Hemoglobin Concent 33 g/dL (31-37) Red Cell Distribution Width 15.5 % (11.5-14.5) Platelet Count 337 x10^3/uL (140-400) Neutrophils (%) (Auto) 72 % (31-73) Lymphocytes (%) (Auto) 10 % (24-48) Monocytes (%) (Auto) 10 % (0-9) Eosinophils (%) (Auto) 7 % (0-3) Basophils (%) (Auto) 1 % (0-3) Neutrophils # (Auto) 7.4 x10^3uL (1.8-7.7) Lymphocytes # (Auto) 1.0 x10^3/uL (1.0-4.8) Monocytes # (Auto) 1.0 x10^3/uL (0.0-1.1) Eosinophils # (Auto) 0.7 x10^3/uL (0.0-0.7) Basophils # (Auto) 0.1 x10^3/uL (0.0-0.2) Sodium Level 126 mmol/L (136-145) Potassium Level 5.1 mmol/L (3.5-5.1) Chloride Level 91 mmol/L (98-107) Carbon Dioxide Level 27 mmol/L (21-32) Anion Gap 8 (6-14) Blood Urea Nitrogen 55 mg/dL (8-26) Creatinine 3.7 mg/dL (0.7-1.3) Estimated GFR (Cockcroft-Gault) 16.1 Glucose Level 438 mg/dL (70-99) Calcium Level 8.7 mg/dL (8.5-10.1) Phosphorus Level 5.0 mg/dL (2.6-4.7) Albumin 2.5 g/dL (3.4-5.0) Test 02/15/17 10:00 25-Hydroxy Vitamin D Total 35.9 ng/mL (30-100) Microbiology 02/08/17 Urine Culture - Final, Complete 02/08/17 Urine Culture Result 1 (RIANNA) - Final, Complete Medications Current Medications Albuterol/ Ipratropium (Duoneb) 3 ml 1X ONCE NEB Last administered on 10:25; Start 02/08/17 at 09:30; Stop 02/08/17 at 09:38; Status DC Nitroglycerin (Nitro-Bid Oint) 1 inch 1X ONCE TP Last administered on 09:45; Start 02/08/17 at 09:30; Stop 02/08/17 at 09:38; Status DC Furosemide (Lasix) 40 mg 1X ONCE IVP Last administered on 02/08/17 09:45; Start 02/08/17 at 09:30; Stop 02/08/17 at 09:38; Status DC Ondansetron HCl (Zofran) 4 mg PRN Q8HRS PRN IV NAUSEA/VOMITING; Start at 11:30; Stop 02/09/17 at 11:29; Status DC Furosemide 100 mg/ Sodium Chloride 100 ml @ 0 mls/hr CONT PRN IV PER PROTOCOL Last administered on 02/12/17 08:37; Start 02/08/17 at 11:30; Stop 02/12/17 at 09:53; Status DC Aspirin (Bhavya Aspirin) 325 mg DAILY PO Last administered on 02/15/17 08:11; Start 02/09/17 at 09:00 Vitamin D (Vitamin D3) 1,000 unit DAILY PO Last administered on 02/15/17 08: 12; Start 02/09/17 at 09:00 Clopidogrel Bisulfate (Plavix) 75 mg DAILY PO Last administered on 02/15/17 08:11; Start 02/09/17 at 09:00 Metolazone (Zaroxolyn) 2.5 mg DAILY PO ; Start 02/09/17 at 09:00; Stop at 09:00; Status DC Spironolactone (Aldactone) 25 mg DAILY PO ; Start 02/09/17 at 09:00; Stop at 13:33; Status DC Tamsulosin HCl (Flomax) 0.4 mg DAILY PO Last administered on 02/15/17 08:12; Start 02/09/17 at 09:00 Trazodone HCl (Desyrel) 100 mg HS PO Last administered on 02/14/17 21:18; Start 02/08/17 at 21:00 Non-Formulary Medication 1 tab DAILY PO ; Start 02/09/17 at 09:00; Stop at 09:00; Status DC Glipizide (Glucotrol) 10 mg BIDBFRMEAL PO Last administered on 02/15/17 08:11 ; Start 02/09/17 at 17:00 Insulin Aspart (NovoLOG) 20 units TIDAC SQ Last administered on 02/15/17 08: 19; Start 02/08/17 at 16:30 Insulin Detemir (Levemir) 60 units QHS SQ Last administered on 02/14/17 21:20 ; Start 02/08/17 at 21:00 Multivitamins (Thera M Plus) 1 tab DAILY PO Last administered on 02/15/17 08: 12; Start 02/09/17 at 09:00 Acetaminophen (Tylenol) 650 mg PRN Q6HRS PRN PO FEVER; Start 02/08/17 at 16:30 Ondansetron HCl (Zofran) 4 mg PRN Q6HRS PRN IV NAUSEA/VOMITING; Start at 16:30 Morphine Sulfate 2 mg PRN Q2HR PRN IV PAIN; Start 02/08/17 at 16:30 Tramadol HCl (Ultram) 50 mg PRN Q6HRS PRN PO PAIN Last administered on 21:24; Start 02/08/17 at 16:30 Hydralazine HCl (Apresoline Inj) 10 mg PRN Q4HRS PRN IVP ELEVATED BP, SEE COMMENTS; Start 02/08/17 at 16:30 Docusate Sodium (Colace) 100 mg PRN DAILY PRN PO CONSTIPATION Last administered on 02/14/17 21:18; Start 02/08/17 at 16:30 Insulin Aspart (NovoLOG) 0-9 UNITS TIDWMEALS SQ Last administered on 08:20; Start 02/08/17 at 17:00 Dextrose (Dextrose 50%-Water Syringe) 12.5 gm PRN Q15MIN PRN IV SEE COMMENTS; Start 02/08/17 at 16:30 Albuterol Sulfate (Ventolin Neb Soln) 2.5 mg PRN Q4HRS PRN NEB SHORTNESS OF BREATH Last administered on 02/10/17 04:31; Start 02/08/17 at 16:30 Albuterol/ Ipratropium (Duoneb) 3 ml RTQID NEB Last administered on 02/15/17 07:56; Start 02/08/17 at 17:00 Heparin Sodium (Porcine) (Heparin Sq) 5,000 unit Q8HRS SQ Last administered on 02/15/17 06:01; Start 02/08/17 at 22:00 Alprazolam (Xanax) 0.25 mg PRN BID PRN PO ANXIETY / AGITATION Last administered on 02/08/17 17:52; Start 02/08/17 at 17:15; Stop 02/08/17 at 19 :44; Status DC Ceftriaxone Sodium 50 ml @ 100 mls/hr DAILY IV ; Start 02/09/17 at 09:00; Status UNV Alprazolam (Xanax) 0.5 mg PRN Q6HRS PRN PO ANXIETY / AGITATION Last administered on 02/09/17 08:43; Start 02/08/17 at 19:45; Stop 02/09/17 at 10 :55; Status DC Ceftriaxone Sodium (Rocephin) 1 gm Q24H IVP Last administered on 02/10/17 21: 24; Start 02/08/17 at 20:00; Stop 02/11/17 at 15:00; Status DC Potassium Chloride (Klor-Con) 40 meq 1X ONCE PO Last administered on 08:43; Start 02/09/17 at 08:15; Stop 02/09/17 at 08:16; Status DC Potassium Chloride (Klor-Con) 40 meq 1X ONCE PO Last administered on 12:23; Start 02/09/17 at 12:00; Stop 02/09/17 at 12:01; Status DC Dobutamine HCl/ Dextrose 250 ml @ 0 mls/hr CONT PRN IV SEE I/O RECORD Last administered on 02/11/17 19:43; Start 02/09/17 at 08:15; Stop 02/12/17 at 09 :53; Status DC Alprazolam (Xanax) 0.25 mg PRN Q6HRS PRN PO ANXIETY / AGITATION Last administered on 02/12/17 09:30; Start 02/09/17 at 11:00; Stop 02/12/17 at 13 :09; Status DC Potassium Chloride (Klor-Con) 40 meq PRN Q4HRS PRN PO for K < 4.0 Last administered on 02/09/17 22:13; Start 02/09/17 at 11:15 Albumin Human 100 ml @ 100 mls/hr 1X ONCE IV Last administered on 02/10/17 12:00; Start 02/10/17 at 12:00; Stop 02/10/17 at 12:59; Status DC Albumin Human 100 ml @ 100 mls/hr 1X ONCE IV Last administered on 02/10/17 21:23; Start 02/10/17 at 20:00; Stop 02/10/17 at 20:59; Status DC Magnesium Sulfate/ Dextrose 50 ml @ 25 mls/hr PRN DAILY PRN IV for Mag < 1.7 on am labs; Start 02/11/17 at 11:30 Cefpodoxime Proxetil (Vantin) 100 mg BID PO Last administered on 02/14/17 08: 24; Start 02/11/17 at 21:00; Stop 02/14/17 at 11:12; Status DC Heparin Sodium/ Sodium Chloride 1,000 unit 1X ONCE IART Last administered on 02/12/17 13:18; Start 02/12/17 at 13:00; Stop 02/12/17 at 13:05; Status DC Midazolam HCl (Versed) 2 mg 1X ONCE IV Last administered on 02/12/17 13:20; Start 02/12/17 at 13:00; Stop 02/12/17 at 13:05; Status DC Fentanyl Citrate (Fentanyl 2ml Vial) 100 mcg 1X ONCE IV Last administered on 02/12/17 13:20; Start 02/12/17 at 13:00; Stop 02/12/17 at 13:05; Status DC Lidocaine/ Epinephrine (Xylocaine 1%-Epi 1:100,000) 20 ml 1X ONCE IJ Last administered on 02/12/17 13:21; Start 02/12/17 at 13:00; Stop 02/12/17 at 13 :05; Status DC Heparin Sodium (Porcine) (Heparin Sodium) 3,800 unit 1X ONCE INT CAT Last administered on 02/12/17 13:20; Start 02/12/17 at 13:00; Stop 02/12/17 at 13 :05; Status DC Cefazolin Sodium/ Dextrose 50 ml @ 100 mls/hr 1X ONCE IV Last administered on 02/12/17 13:21; Start 02/12/17 at 13:00; Stop 02/12/17 at 13:29; Status DC Alprazolam (Xanax) 1 mg PRN Q6HRS PRN PO ANXIETY / AGITATION Last administered on 02/15/17 08:12; Start 02/12/17 at 13:15 Sodium Chloride 1,000 ml @ 1,000 mls/hr Q1H PRN IV hypotension; Start at 18:54; Stop 02/13/17 at 00:53; Status DC Sodium Chloride 1,000 ml @ 400 mls/hr Q2H30M PRN IV PATENCY; Start 02/12/17 at 18:54; Stop 02/13/17 at 06:53; Status DC Info (PHARMACY MONITORING -- do not chart) 1 each PRN DAILY PRN MC SEE COMMENTS ; Start 02/12/17 at 19:00; Stop 02/14/17 at 11:07; Status DC Sodium Chloride 1,000 ml @ 1,000 mls/hr Q1H PRN IV hypotension; Start at 13:21; Stop 02/13/17 at 19:20; Status DC Info (PHARMACY MONITORING -- do not chart) 1 each PRN DAILY PRN MC SEE COMMENTS ; Start 02/13/17 at 13:30 Cefpodoxime Proxetil (Vantin) 100 mg QHS PO Last administered on 02/14/17t 21: 18; Start 02/14/17 at 21:00 Sodium Chloride 1,000 ml @ 1,000 mls/hr Q1H PRN IV hypotension; Start at 07:46; Stop 02/15/17 at 13:45 Sodium Chloride (Normal Saline Flush) 10 ml 1X PRN PRN IV AP catheter pack; Start 02/15/17 at 08:00; Stop 02/16/17 at 07:59 Sodium Chloride (Normal Saline Flush) 10 ml 1X PRN PRN IV [employer] HE[employer]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 catheter pack; Start 02/15/17 at 08:00; Stop 02/16/17 at 07:59 Sodium Chloride 1,000 ml @ 400 mls/hr Q2H30M PRN IV PATENCY; Start 02/15/17 at 07:46; Stop 02/15/17 at 19:45 Info (PHARMACY MONITORING -- do not chart) 1 each PRN DAILY PRN MC SEE COMMENTS ; Start 02/15/17 at 08:00; Status UNV Info (PHARMACY MONITORING -- do not chart) 1 each PRN DAILY PRN MC SEE COMMENTS ; Start 02/15/17 at 08:00; Status UNV Active Scripts Active Novolog (Insulin Aspart) 100 Unit/1 Ml Cartridge 25 Unit SQ TID 30 Days Metolazone 2.5 Mg Tablet 2.5 Mg PO DAILY Flomax (Tamsulosin Hcl) 0.4 Mg Cap.er.24h 0.4 Mg PO DAILY Reported Trazodone Hcl 100 Mg Tablet 100 Mg PO HS Glipizide 10 Mg Tablet 1 Tab PO BID Spironolactone 25 Mg Tablet 1 Tab PO DAILY Multi-Day Vitamins (Multivitamin) 1 Each Tablet 1 Tab PO DAILY Vitamin D3 (Cholecalciferol (Vitamin D3)) 1,000 Unit Tablet 1 Tab PO DAILY Aspirin 325 Mg Tablet 1 Tab PO DAILY Bumetanide 2 Mg Tablet 1 Tab PO DAILY Lantus Solostar (Insulin Glargine,Hum.rec.anlog) 100 Unit/1 Ml Insuln.pen 75 Unit SQ QHS Clopidogrel (Clopidogrel Bisulfate) 75 Mg Tablet 1 Tab PO DAILY Vitals/I & O Vital Sign - Last 24 Hours 02/14/17 02/14/17 02/14/17 02/14/17 15:00 16:11 19:12 19:23 Temp 98.2 98.0 98.2 98.0 Pulse 96 94 Resp 20 18 B/P (MAP) 91/64 (73) 105/54 (71) Pulse Ox 94 94 93 O2 Delivery Nasal Cannula Nasal Cannula Nasal Cannula Nasal Cannula O2 Flow Rate 2.0 2.0 2.0 2.0 02/14/17 02/14/17 02/15/17 02/15/17 19:30 22:34 03:00 07:00 Temp 99.1 98.2 98.6 99.1 98.2 98.6 Pulse 103 102 95 Resp 24 20 19 B/P (MAP) 105/60 (75) 117/65 (82) 123/56 (78) Pulse Ox 92 94 92 O2 Delivery Nasal Cannula Nasal Cannula Nasal Cannula Nasal Cannula O2 Flow Rate 2.0 2.0 3.0 2.0 02/15/17 02/15/17 07:57 08:10 Pulse Ox 95 O2 Delivery Nasal Cannula Nasal Cannula O2 Flow Rate 2.0 2.0 Intake and Output 02/14/17 02/14/17 02/15/17 15:00 23:00 07:00 Intake Total 325 ml 630 ml Output Total 500 ml Balance 325 ml 130 ml BETH SALCIDOL K III DO Feb 15, 2017 12:26
--- NOTE | 2017-02-15 14:21 | PDOC ---
PROGRESS NOTES Subjective Subjective No new complaints cardiac-patel. He is not very happy with me because I told him that I was recommending for him to go for at least a couple of weeks to a rehabilitation facility. However I do think that he understands the situation and that his is not going to be able to help him and he cannot help himself at this point and has a BIG fall risk as well Objective Objective Vital Signs Date Time Temp Pulse Resp B/P (MAP) Pulse Ox O2 Delivery O2 Flow Rate FiO2 02/15/17 08:10 Nasal Cannula 2.0 02/15/17 07:57 95 02/15/17 07:00 98.6 95 19 123/56 (78) 98.6 Physical Exam Physical Exam Moving air better. Less rales. Less edema. Assessment Assessment The patient's CHF seems to continue to improve with the dialysis. The patient's severe deconditioning makes it very difficult for him to go home alone. His is not able to pick him up and now she has had an accident with an injury to the shoulder and she is going to be having surgery next week therefore they will be anybody there to help him. I recommended the patient go to some form of a rehabilitation facility for a couple of weeks. Comment Review of Relevant I have reviewed the following items sukumar (where applicable) has been applied. Labs Laboratory Tests Test 02/13/17 16:58 02/13/17 21:12 02/14/17 04:20 02/14/17 08:03 Glucose (Fingerstick) 295 mg/dL (70-99) 184 mg/dL (70-99) 219 mg/dL (70-99) White Blood Count 10.9 x10^3/uL (4.0-11.0) Red Blood Count 3.31 x10^6/uL (4.30-5.70) Hemoglobin 9.4 g/dL (13.0-17.5) Hematocrit 28.6 % (39.0-53.0) Mean Corpuscular Volume 86 fL (79-100) Mean Corpuscular Hemoglobin 29 pg (25-35) Mean Corpuscular Hemoglobin Concent 33 g/dL (31-37) Red Cell Distribution Width 15.5 % (11.5-14.5) Platelet Count 292 x10^3/uL (140-400) Neutrophils (%) (Auto) 68 % (31-73) Lymphocytes (%) (Auto) 11 % (24-48) Monocytes (%) (Auto) 11 % (0-9) Eosinophils (%) (Auto) 10 % (0-3) Basophils (%) (Auto) 1 % (0-3) Neutrophils # (Auto) 7.4 x10^3uL (1.8-7.7) Lymphocytes # (Auto) 1.2 x10^3/uL (1.0-4.8) Monocytes # (Auto) 1.2 x10^3/uL (0.0-1.1) Eosinophils # (Auto) 1.0 x10^3/uL (0.0-0.7) Basophils # (Auto) 0.1 x10^3/uL (0.0-0.2) Sodium Level 131 mmol/L (136-145) Potassium Level 4.6 mmol/L (3.5-5.1) Chloride Level 94 mmol/L (98-107) Carbon Dioxide Level 29 mmol/L (21-32) Anion Gap 8 (6-14) Blood Urea Nitrogen 38 mg/dL (8-26) Creatinine 3.4 mg/dL (0.7-1.3) Estimated GFR (Cockcroft-Gault) 17.7 Glucose Level 199 mg/dL (70-99) Calcium Level 8.6 mg/dL (8.5-10.1) Phosphorus Level 3.9 mg/dL (2.6-4.7) Magnesium Level 2.2 mg/dL (1.8-2.4) Albumin 2.4 g/dL (3.4-5.0) Test 02/14/17 11:53 02/14/17 16:45 02/14/17 20:33 02/15/17 03:55 Glucose (Fingerstick) 235 mg/dL (70-99) 163 mg/dL (70-99) 270 mg/dL (70-99) White Blood Count 10.1 x10^3/uL (4.0-11.0) Red Blood Count 3.37 x10^6/uL (4.30-5.70) Hemoglobin 9.7 g/dL (13.0-17.5) Hematocrit 29.2 % (39.0-53.0) Mean Corpuscular Volume 87 fL (79-100) Mean Corpuscular Hemoglobin 29 pg (25-35) Mean Corpuscular Hemoglobin Concent 33 g/dL (31-37) Red Cell Distribution Width 15.5 % (11.5-14.5) Platelet Count 337 x10^3/uL (140-400) Neutrophils (%) (Auto) 72 % (31-73) Lymphocytes (%) (Auto) 10 % (24-48) Monocytes (%) (Auto) 10 % (0-9) Eosinophils (%) (Auto) 7 % (0-3) Basophils (%) (Auto) 1 % (0-3) Neutrophils # (Auto) 7.4 x10^3uL (1.8-7.7) Lymphocytes # (Auto) 1.0 x10^3/uL (1.0-4.8) Monocytes # (Auto) 1.0 x10^3/uL (0.0-1.1) Eosinophils # (Auto) 0.7 x10^3/uL (0.0-0.7) Basophils # (Auto) 0.1 x10^3/uL (0.0-0.2) Sodium Level 126 mmol/L (136-145) Potassium Level 5.1 mmol/L (3.5-5.1) Chloride Level 91 mmol/L (98-107) Carbon Dioxide Level 27 mmol/L (21-32) Anion Gap 8 (6-14) Blood Urea Nitrogen 55 mg/dL (8-26) Creatinine 3.7 mg/dL (0.7-1.3) Estimated GFR (Cockcroft-Gault) 16.1 Glucose Level 438 mg/dL (70-99) Calcium Level 8.7 mg/dL (8.5-10.1) Phosphorus Level 5.0 mg/dL (2.6-4.7) Albumin 2.5 g/dL (3.4-5.0) Test 02/15/17 07:46 02/15/17 10:00 02/15/17 13:22 Glucose (Fingerstick) 367 mg/dL (70-99) 111 mg/dL (70-99) 25-Hydroxy Vitamin D Total 35.9 ng/mL (30-100) Laboratory Tests Test 02/14/17 16:45 02/14/17 20:33 02/15/17 03:55 02/15/17 07:46 Glucose (Fingerstick) 163 mg/dL (70-99) 270 mg/dL (70-99) 367 mg/dL (70-99) White Blood Count 10.1 x10^3/uL (4.0-11.0) Red Blood Count 3.37 x10^6/uL (4.30-5.70) Hemoglobin 9.7 g/dL (13.0-17.5) Hematocrit 29.2 % (39.0-53.0) Mean Corpuscular Volume 87 fL (79-100) Mean Corpuscular Hemoglobin 29 pg (25-35) Mean Corpuscular Hemoglobin Concent 33 g/dL (31-37) Red Cell Distribution Width 15.5 % (11.5-14.5) Platelet Count 337 x10^3/uL (140-400) Neutrophils (%) (Auto) 72 % (31-73) Lymphocytes (%) (Auto) 10 % (24-48) Monocytes (%) (Auto) 10 % (0-9) Eosinophils (%) (Auto) 7 % (0-3) Basophils (%) (Auto) 1 % (0-3) Neutrophils # (Auto) 7.4 x10^3uL (1.8-7.7) Lymphocytes # (Auto) 1.0 x10^3/uL (1.0-4.8) Monocytes # (Auto) 1.0 x10^3/uL (0.0-1.1) Eosinophils # (Auto) 0.7 x10^3/uL (0.0-0.7) Basophils # (Auto) 0.1 x10^3/uL (0.0-0.2) Sodium Level 126 mmol/L (136-145) Potassium Level 5.1 mmol/L (3.5-5.1) Chloride Level 91 mmol/L (98-107) Carbon Dioxide Level 27 mmol/L (21-32) Anion Gap 8 (6-14) Blood Urea Nitrogen 55 mg/dL (8-26) Creatinine 3.7 mg/dL (0.7-1.3) Estimated GFR (Cockcroft-Gault) 16.1 Glucose Level 438 mg/dL (70-99) Calcium Level 8.7 mg/dL (8.5-10.1) Phosphorus Level 5.0 mg/dL (2.6-4.7) Albumin 2.5 g/dL (3.4-5.0) Test 02/15/17 10:00 02/15/17 13:22 25-Hydroxy Vitamin D Total 35.9 ng/mL (30-100) Glucose (Fingerstick) 111 mg/dL (70-99) Microbiology 02/08/17 Urine Culture - Final, Complete 02/08/17 Urine Culture Result 1 (RIANNA) - Final, Complete Medications Current Medications Albuterol/ Ipratropium (Duoneb) 3 ml 1X ONCE NEB Last administered on 10:25; Start 02/08/17 at 09:30; Stop 02/08/17 at 09:38; Status DC Nitroglycerin (Nitro-Bid Oint) 1 inch 1X ONCE TP Last administered on 09:45; Start 02/08/17 at 09:30; Stop 02/08/17 at 09:38; Status DC Furosemide (Lasix) 40 mg 1X ONCE IVP Last administered on 02/08/17 09:45; Start 02/08/17 at 09:30; Stop 02/08/17 at 09:38; Status DC Ondansetron HCl (Zofran) 4 mg PRN Q8HRS PRN IV NAUSEA/VOMITING; Start at 11:30; Stop 02/09/17 at 11:29; Status DC Furosemide 100 mg/ Sodium Chloride 100 ml @ 0 mls/hr CONT PRN IV PER PROTOCOL Last administered on 02/12/17 08:37; Start 02/08/17 at 11:30; Stop 02/12/17 at 09:53; Status DC Aspirin (Bhavya Aspirin) 325 mg DAILY PO Last administered on 02/15/17 08:11; Start 02/09/17 at 09:00 Vitamin D (Vitamin D3) 1,000 unit DAILY PO Last administered on 02/15/17 08: 12; Start 02/09/17 at 09:00 Clopidogrel Bisulfate (Plavix) 75 mg DAILY PO Last administered on 02/15/17 08:11; Start 02/09/17 at 09:00 Metolazone (Zaroxolyn) 2.5 mg DAILY PO ; Start 02/09/17 at 09:00; Stop at 09:00; Status DC Spironolactone (Aldactone) 25 mg DAILY PO ; Start 02/09/17 at 09:00; Stop at 13:33; Status DC Tamsulosin HCl (Flomax) 0.4 mg DAILY PO Last administered on 02/15/17 08:12; Start 02/09/17 at 09:00 Trazodone HCl (Desyrel) 100 mg HS PO Last administered on 02/14/17 21:18; Start 02/08/17 at 21:00 Non-Formulary Medication 1 tab DAILY PO ; Start 02/09/17 at 09:00; Stop at 09:00; Status DC Glipizide (Glucotrol) 10 mg BIDBFRMEAL PO Last administered on 02/15/17 08:11 ; Start 02/09/17 at 17:00 Insulin Aspart (NovoLOG) 20 units TIDAC SQ Last administered on 02/15/17 08: 19; Start 02/08/17 at 16:30 Insulin Detemir (Levemir) 60 units QHS SQ Last administered on 02/14/17 21:20 ; Start 02/08/17 at 21:00 Multivitamins (Thera M Plus) 1 tab DAILY PO Last administered on 02/15/17 08: 12; Start 02/09/17 at 09:00 Acetaminophen (Tylenol) 650 mg PRN Q6HRS PRN PO FEVER; Start 02/08/17 at 16:30 Ondansetron HCl (Zofran) 4 mg PRN Q6HRS PRN IV NAUSEA/VOMITING; Start at 16:30 Morphine Sulfate 2 mg PRN Q2HR PRN IV PAIN; Start 02/08/17 at 16:30 Tramadol HCl (Ultram) 50 mg PRN Q6HRS PRN PO PAIN Last administered on 21:24; Start 02/08/17 at 16:30 Hydralazine HCl (Apresoline Inj) 10 mg PRN Q4HRS PRN IVP ELEVATED BP, SEE COMMENTS; Start 02/08/17 at 16:30 Docusate Sodium (Colace) 100 mg PRN DAILY PRN PO CONSTIPATION Last administered on 02/14/17 21:18; Start 02/08/17 at 16:30 Insulin Aspart (NovoLOG) 0-9 UNITS TIDWMEALS SQ Last administered on 08:20; Start 02/08/17 at 17:00 Dextrose (Dextrose 50%-Water Syringe) 12.5 gm PRN Q15MIN PRN IV SEE COMMENTS; Start 02/08/17 at 16:30 Albuterol Sulfate (Ventolin Neb Soln) 2.5 mg PRN Q4HRS PRN NEB SHORTNESS OF BREATH Last administered on 02/10/17 04:31; Start 02/08/17 at 16:30 Albuterol/ Ipratropium (Duoneb) 3 ml RTQID NEB Last administered on 02/15/17 07:56; Start 02/08/17 at 17:00 Heparin Sodium (Porcine) (Heparin Sq) 5,000 unit Q8HRS SQ Last administered on 02/15/17 06:01; Start 02/08/17 at 22:00 Alprazolam (Xanax) 0.25 mg PRN BID PRN PO ANXIETY / AGITATION Last administered on 02/08/17 17:52; Start 02/08/17 at 17:15; Stop 02/08/17 at 19 :44; Status DC Ceftriaxone Sodium 50 ml @ 100 mls/hr DAILY IV ; Start 02/09/17 at 09:00; Status UNV Alprazolam (Xanax) 0.5 mg PRN Q6HRS PRN PO ANXIETY / AGITATION Last administered on 02/09/17 08:43; Start 02/08/17 at 19:45; Stop 02/09/17 at 10 :55; Status DC Ceftriaxone Sodium (Rocephin) 1 gm Q24H IVP Last administered on 02/10/17 21: 24; Start 02/08/17 at 20:00; Stop 02/11/17 at 15:00; Status DC Potassium Chloride (Klor-Con) 40 meq 1X ONCE PO Last administered on 08:43; Start 02/09/17 at 08:15; Stop 02/09/17 at 08:16; Status DC Potassium Chloride (Klor-Con) 40 meq 1X ONCE PO Last administered on 12:23; Start 02/09/17 at 12:00; Stop 02/09/17 at 12:01; Status DC Dobutamine HCl/ Dextrose 250 ml @ 0 mls/hr CONT PRN IV SEE I/O RECORD Last administered on 02/11/17 19:43; Start 02/09/17 at 08:15; Stop 02/12/17 at 09 :53; Status DC Alprazolam (Xanax) 0.25 mg PRN Q6HRS PRN PO ANXIETY / AGITATION Last administered on 02/12/17 09:30; Start 02/09/17 at 11:00; Stop 02/12/17 at 13 :09; Status DC Potassium Chloride (Klor-Con) 40 meq PRN Q4HRS PRN PO for K < 4.0 Last administered on 02/09/17 22:13; Start 02/09/17 at 11:15 Albumin Human 100 ml @ 100 mls/hr 1X ONCE IV Last administered on 02/10/17 12:00; Start 02/10/17 at 12:00; Stop 02/10/17 at 12:59; Status DC Albumin Human 100 ml @ 100 mls/hr 1X ONCE IV Last administered on 02/10/17 21:23; Start 02/10/17 at 20:00; Stop 02/10/17 at 20:59; Status DC Magnesium Sulfate/ Dextrose 50 ml @ 25 mls/hr PRN DAILY PRN IV for Mag < 1.7 on am labs; Start 02/11/17 at 11:30 Cefpodoxime Proxetil (Vantin) 100 mg BID PO Last administered on 02/14/17 08: 24; Start 02/11/17 at 21:00; Stop 02/14/17 at 11:12; Status DC Heparin Sodium/ Sodium Chloride 1,000 unit 1X ONCE IART Last administered on 02/12/17 13:18; Start 02/12/17 at 13:00; Stop 02/12/17 at 13:05; Status DC Midazolam HCl (Versed) 2 mg 1X ONCE IV Last administered on 02/12/17 13:20; Start 02/12/17 at 13:00; Stop 02/12/17 at 13:05; Status DC Fentanyl Citrate (Fentanyl 2ml Vial) 100 mcg 1X ONCE IV Last administered on 02/12/17 13:20; Start 02/12/17 at 13:00; Stop 02/12/17 at 13:05; Status DC Lidocaine/ Epinephrine (Xylocaine 1%-Epi 1:100,000) 20 ml 1X ONCE IJ Last administered on 02/12/17 13:21; Start 02/12/17 at 13:00; Stop 02/12/17 at 13 :05; Status DC Heparin Sodium (Porcine) (Heparin Sodium) 3,800 unit 1X ONCE INT CAT Last administered on 02/12/17 13:20; Start 02/12/17 at 13:00; Stop 02/12/17 at 13 :05; Status DC Cefazolin Sodium/ Dextrose 50 ml @ 100 mls/hr 1X ONCE IV Last administered on 02/12/17 13:21; Start 02/12/17 at 13:00; Stop 02/12/17 at 13:29; Status DC Alprazolam (Xanax) 1 mg PRN Q6HRS PRN PO ANXIETY / AGITATION Last administered on 02/15/17 08:12; Start 02/12/17 at 13:15 Sodium Chloride 1,000 ml @ 1,000 mls/hr Q1H PRN IV hypotension; Start at 18:54; Stop 02/13/17 at 00:53; Status DC Sodium Chloride 1,000 ml @ 400 mls/hr Q2H30M PRN IV PATENCY; Start 02/12/17 at 18:54; Stop 02/13/17 at 06:53; Status DC Info (PHARMACY MONITORING -- do not chart) 1 each PRN DAILY PRN MC SEE COMMENTS ; Start 02/12/17 at 19:00; Stop 02/14/17 at 11:07; Status DC Sodium Chloride 1,000 ml @ 1,000 mls/hr Q1H PRN IV hypotension; Start at 13:21; Stop 02/13/17 at 19:20; Status DC Info (PHARMACY MONITORING -- do not chart) 1 each PRN DAILY PRN MC SEE COMMENTS ; Start 02/13/17 at 13:30 Cefpodoxime Proxetil (Vantin) 100 mg QHS PO Last administered on 02/14/17 21: 18; Start 02/14/17 at 21:00 Sodium Chloride 1,000 ml @ 1,000 mls/hr Q1H PRN IV hypotension; Start at 07:46; Stop 02/15/17 at 13:45; Status DC Sodium Chloride (Normal Saline Flush) 10 ml 1X PRN PRN IV AP catheter pack; Start 02/15/17 at 08:00; Stop 02/16/17 at 07:59 Sodium Chloride (Normal Saline Flush) 10 ml 1X PRN PRN IV ASSISTANT [employer]IC catheter pack; Start 02/15/17 at 08:00; Stop 02/16/17 at 07:59 Sodium Chloride 1,000 ml @ 400 mls/hr Q2H30M PRN IV PATENCY; Start 02/15/17 at 07:46; Stop 02/15/17 at 19:45 Info (PHARMACY MONITORING -- do not chart) 1 each PRN DAILY PRN MC SEE COMMENTS ; Start 02/15/17 at 08:00; Status UNV Info (PHARMACY MONITORING -- do not chart) 1 each PRN DAILY PRN MC SEE COMMENTS ; Start 02/15/17 at 08:00; Status UNV Active Scripts Active Novolog (Insulin Aspart) 100 Unit/1 Ml Cartridge 25 Unit SQ TID 30 Days Metolazone 2.5 Mg Tablet 2.5 Mg PO DAILY Flomax (Tamsulosin Hcl) 0.4 Mg Cap.er.24h 0.4 Mg PO DAILY Reported Trazodone Hcl 100 Mg Tablet 100 Mg PO HS Glipizide 10 Mg Tablet 1 Tab PO BID Spironolactone 25 Mg Tablet 1 Tab PO DAILY Multi-Day Vitamins (Multivitamin) 1 Each Tablet 1 Tab PO DAILY Vitamin D3 (Cholecalciferol (Vitamin D3)) 1,000 Unit Tablet 1 Tab PO DAILY Aspirin 325 Mg Tablet 1 Tab PO DAILY Bumetanide 2 Mg Tablet 1 Tab PO DAILY Lantus Solostar (Insulin Glargine,Hum.rec.anlog) 100 Unit/1 Ml Insuln.pen 75 Unit SQ QHS Clopidogrel (Clopidogrel Bisulfate) 75 Mg Tablet 1 Tab PO DAILY Vitals/I & O Vital Sign - Last 24 Hours 02/14/17 02/14/17 02/14/17 02/14/17 15:00 16:11 19:12 19:23 Temp 98.2 98.0 98.2 98.0 Pulse 96 94 Resp 20 18 B/P (MAP) 91/64 (73) 105/54 (71) Pulse Ox 94 94 93 O2 Delivery Nasal Cannula Nasal Cannula Nasal Cannula Nasal Cannula O2 Flow Rate 2.0 2.0 2.0 2.0 02/14/17 02/14/17 02/15/17 02/15/17 19:30 22:34 03:00 07:00 Temp 99.1 98.2 98.6 99.1 98.2 98.6 Pulse 103 102 95 Resp 24 19 B/P (MAP) 105/60 (75) 117/65 (82) 123/56 (78) Pulse Ox 92 94 92 O2 Delivery Nasal Cannula Nasal Cannula Nasal Cannula Nasal Cannula O2 Flow Rate 2.0 2.0 3.0 2.0 02/15/17 02/15/17 07:57 08:10 Pulse Ox 95 O2 Delivery Nasal Cannula Nasal Cannula O2 Flow Rate 2.0 2.0 OKSANA JOSEPH MD Feb 15, 2017 14:21
--- NOTE | 2017-02-15 14:58 | PDOC ---
PROGRESS NOTES Subjective Subjective SEEN IN FOLLOW UP OF ESRD Objective Objective Vital Signs Date Time Temp Pulse Resp B/P (MAP) Pulse Ox O2 Delivery O2 Flow Rate FiO2 02/15/17 08:10 Nasal Cannula 2.0 02/15/17 07:57 95 02/15/17 07:00 98.6 95 19 123/56 (78) 98.6 Intake and Output 02/15/17 07:00 Intake Total 955 ml Output Total 500 ml Balance 455 ml Intake Oral 955 ml Output Urine Total 500 ml Physical Exam Abdomen: Normal bowel sounds, Soft, No tenderness, No hepatosplenomegaly, No masses Heart: Regular rate, Normal S1, Normal S2, No murmurs, Gallops Extremities: No clubbing, No cyanosis, No edema, Normal pulses, No tenderness/ swelling General: Alert, Oriented X3, Cooperative, No acute distress Lungs: Clear to auscultation, Normal air movement Psych/Mental Status: Mental status NL, Mood NL Diagnosis RENAL FAILURE: ESRD Assessment Assessment Problems Medical Problems: (1) CHF (congestive heart failure) Status: Acute Plan Plan of Care DIALYSIS NEEDED TODAY FOR SOLUTE CLEARANCE AND FLUID BALANCE. HE IS VERY WEAK AND NEEDS POST HOSPITAL REHAB. HAVE DISCUSSED THIS WITH CARDIOLOGY AND PATIENT/ FAMILY. CONT EPOGEN FOR ANEMIA OF CKD. Comment Review of Relevant I have reviewed the following items sukumar (where applicable) has been applied. Labs Laboratory Tests Test 02/13/17 16:58 02/13/17 21:12 02/14/17 04:20 02/14/17 08:03 Glucose (Fingerstick) 295 mg/dL (70-99) 184 mg/dL (70-99) 219 mg/dL (70-99) White Blood Count 10.9 x10^3/uL (4.0-11.0) Red Blood Count 3.31 x10^6/uL (4.30-5.70) Hemoglobin 9.4 g/dL (13.0-17.5) Hematocrit 28.6 % (39.0-53.0) Mean Corpuscular Volume 86 fL (79-100) Mean Corpuscular Hemoglobin 29 pg (25-35) Mean Corpuscular Hemoglobin Concent 33 g/dL (31-37) Red Cell Distribution Width 15.5 % (11.5-14.5) Platelet Count 292 x10^3/uL (140-400) Neutrophils (%) (Auto) 68 % (31-73) Lymphocytes (%) (Auto) 11 % (24-48) Monocytes (%) (Auto) 11 % (0-9) Eosinophils (%) (Auto) 10 % (0-3) Basophils (%) (Auto) 1 % (0-3) Neutrophils # (Auto) 7.4 x10^3uL (1.8-7.7) Lymphocytes # (Auto) 1.2 x10^3/uL (1.0-4.8) Monocytes # (Auto) 1.2 x10^3/uL (0.0-1.1) Eosinophils # (Auto) 1.0 x10^3/uL (0.0-0.7) Basophils # (Auto) 0.1 x10^3/uL (0.0-0.2) Sodium Level 131 mmol/L (136-145) Potassium Level 4.6 mmol/L (3.5-5.1) Chloride Level 94 mmol/L (98-107) Carbon Dioxide Level 29 mmol/L (21-32) Anion Gap 8 (6-14) Blood Urea Nitrogen 38 mg/dL (8-26) Creatinine 3.4 mg/dL (0.7-1.3) Estimated GFR (Cockcroft-Gault) 17.7 Glucose Level 199 mg/dL (70-99) Calcium Level 8.6 mg/dL (8.5-10.1) Phosphorus Level 3.9 mg/dL (2.6-4.7) Magnesium Level 2.2 mg/dL (1.8-2.4) Albumin 2.4 g/dL (3.4-5.0) Test 02/14/17 11:53 02/14/17 16:45 02/14/17 20:33 02/15/17 03:55 Glucose (Fingerstick) 235 mg/dL (70-99) 163 mg/dL (70-99) 270 mg/dL (70-99) White Blood Count 10.1 x10^3/uL (4.0-11.0) Red Blood Count 3.37 x10^6/uL (4.30-5.70) Hemoglobin 9.7 g/dL (13.0-17.5) Hematocrit 29.2 % (39.0-53.0) Mean Corpuscular Volume 87 fL (79-100) Mean Corpuscular Hemoglobin 29 pg (25-35) Mean Corpuscular Hemoglobin Concent 33 g/dL (31-37) Red Cell Distribution Width 15.5 % (11.5-14.5) Platelet Count 337 x10^3/uL (140-400) Neutrophils (%) (Auto) 72 % (31-73) Lymphocytes (%) (Auto) 10 % (24-48) Monocytes (%) (Auto) 10 % (0-9) Eosinophils (%) (Auto) 7 % (0-3) Basophils (%) (Auto) 1 % (0-3) Neutrophils # (Auto) 7.4 x10^3uL (1.8-7.7) Lymphocytes # (Auto) 1.0 x10^3/uL (1.0-4.8) Monocytes # (Auto) 1.0 x10^3/uL (0.0-1.1) Eosinophils # (Auto) 0.7 x10^3/uL (0.0-0.7) Basophils # (Auto) 0.1 x10^3/uL (0.0-0.2) Sodium Level 126 mmol/L (136-145) Potassium Level 5.1 mmol/L (3.5-5.1) Chloride Level 91 mmol/L (98-107) Carbon Dioxide Level 27 mmol/L (21-32) Anion Gap 8 (6-14) Blood Urea Nitrogen 55 mg/dL (8-26) Creatinine 3.7 mg/dL (0.7-1.3) Estimated GFR (Cockcroft-Gault) 16.1 Glucose Level 438 mg/dL (70-99) Calcium Level 8.7 mg/dL (8.5-10.1) Phosphorus Level 5.0 mg/dL (2.6-4.7) Albumin 2.5 g/dL (3.4-5.0) Test 02/15/17 07:46 02/15/17 10:00 02/15/17 13:22 Glucose (Fingerstick) 367 mg/dL (70-99) 111 mg/dL (70-99) 25-Hydroxy Vitamin D Total 35.9 ng/mL (30-100) Laboratory Tests Test 02/14/17 16:45 02/14/17 20:33 02/15/17 03:55 02/15/17 07:46 Glucose (Fingerstick) 163 mg/dL (70-99) 270 mg/dL (70-99) 367 mg/dL (70-99) White Blood Count 10.1 x10^3/uL (4.0-11.0) Red Blood Count 3.37 x10^6/uL (4.30-5.70) Hemoglobin 9.7 g/dL (13.0-17.5) Hematocrit 29.2 % (39.0-53.0) Mean Corpuscular Volume 87 fL (79-100) Mean Corpuscular Hemoglobin 29 pg (25-35) Mean Corpuscular Hemoglobin Concent 33 g/dL (31-37) Red Cell Distribution Width 15.5 % (11.5-14.5) Platelet Count 337 x10^3/uL (140-400) Neutrophils (%) (Auto) 72 % (31-73) Lymphocytes (%) (Auto) 10 % (24-48) Monocytes (%) (Auto) 10 % (0-9) Eosinophils (%) (Auto) 7 % (0-3) Basophils (%) (Auto) 1 % (0-3) Neutrophils # (Auto) 7.4 x10^3uL (1.8-7.7) Lymphocytes # (Auto) 1.0 x10^3/uL (1.0-4.8) Monocytes # (Auto) 1.0 x10^3/uL (0.0-1.1) Eosinophils # (Auto) 0.7 x10^3/uL (0.0-0.7) Basophils # (Auto) 0.1 x10^3/uL (0.0-0.2) Sodium Level 126 mmol/L (136-145) Potassium Level 5.1 mmol/L (3.5-5.1) Chloride Level 91 mmol/L (98-107) Carbon Dioxide Level 27 mmol/L (21-32) Anion Gap 8 (6-14) Blood Urea Nitrogen 55 mg/dL (8-26) Creatinine 3.7 mg/dL (0.7-1.3) Estimated GFR (Cockcroft-Gault) 16.1 Glucose Level 438 mg/dL (70-99) Calcium Level 8.7 mg/dL (8.5-10.1) Phosphorus Level 5.0 mg/dL (2.6-4.7) Albumin 2.5 g/dL (3.4-5.0) Test 02/15/17 10:00 02/15/17 13:22 25-Hydroxy Vitamin D Total 35.9 ng/mL (30-100) Glucose (Fingerstick) 111 mg/dL (70-99) Microbiology 02/08/17 Urine Culture - Final, Complete 02/08/17 Urine Culture Result 1 (RIANNA) - Final, Complete Medications Current Medications Albuterol/ Ipratropium (Duoneb) 3 ml 1X ONCE NEB Last administered on 10:25; Start 02/08/17 at 09:30; Stop 02/08/17 at 09:38; Status DC Nitroglycerin (Nitro-Bid Oint) 1 inch 1X ONCE TP Last administered on 09:45; Start 02/08/17 at 09:30; Stop 02/08/17 at 09:38; Status DC Furosemide (Lasix) 40 mg 1X ONCE IVP Last administered on 02/08/17 09:45; Start 02/08/17 at 09:30; Stop 02/08/17 at 09:38; Status DC Ondansetron HCl (Zofran) 4 mg PRN Q8HRS PRN IV NAUSEA/VOMITING; Start at 11:30; Stop 02/09/17 at 11:29; Status DC Furosemide 100 mg/ Sodium Chloride 100 ml @ 0 mls/hr CONT PRN IV PER PROTOCOL Last administered on 02/12/17 08:37; Start 02/08/17 at 11:30; Stop 02/12/17 at 09:53; Status DC Aspirin (Bhavya Aspirin) 325 mg DAILY PO Last administered on 02/15/17 08:11; Start 02/09/17 at 09:00 Vitamin D (Vitamin D3) 1,000 unit DAILY PO Last administered on 02/15/17 08: 12; Start 02/09/17 at 09:00 Clopidogrel Bisulfate (Plavix) 75 mg DAILY PO Last administered on 02/15/17 08:11; Start 02/09/17 at 09:00 Metolazone (Zaroxolyn) 2.5 mg DAILY PO ; Start 02/09/17 at 09:00; Stop at 09:00; Status DC Spironolactone (Aldactone) 25 mg DAILY PO ; Start 02/09/17 at 09:00; Stop at 13:33; Status DC Tamsulosin HCl (Flomax) 0.4 mg DAILY PO Last administered on 02/15/17 08:12; Start 02/09/17 at 09:00 Trazodone HCl (Desyrel) 100 mg HS PO Last administered on 02/14/17 21:18; Start 02/08/17 at 21:00 Non-Formulary Medication 1 tab DAILY PO ; Start 02/09/17 at 09:00; Stop at 09:00; Status DC Glipizide (Glucotrol) 10 mg BIDBFRMEAL PO Last administered on 02/15/17 08:11 ; Start 02/09/17 at 17:00 Insulin Aspart (NovoLOG) 20 units TIDAC SQ Last administered on 02/15/17 08: 19; Start 02/08/17 at 16:30 Insulin Detemir (Levemir) 60 units QHS SQ Last administered on 02/14/17 21:20 ; Start 02/08/17 at 21:00 Multivitamins (Thera M Plus) 1 tab DAILY PO Last administered on 02/15/17 08: 12; Start 02/09/17 at 09:00 Acetaminophen (Tylenol) 650 mg PRN Q6HRS PRN PO FEVER; Start 02/08/17 at 16:30 Ondansetron HCl (Zofran) 4 mg PRN Q6HRS PRN IV NAUSEA/VOMITING; Start at 16:30 Morphine Sulfate 2 mg PRN Q2HR PRN IV PAIN; Start 02/08/17 at 16:30 Tramadol HCl (Ultram) 50 mg PRN Q6HRS PRN PO PAIN Last administered on 21:24; Start 02/08/17 at 16:30 Hydralazine HCl (Apresoline Inj) 10 mg PRN Q4HRS PRN IVP ELEVATED BP, SEE COMMENTS; Start 02/08/17 at 16:30 Docusate Sodium (Colace) 100 mg PRN DAILY PRN PO CONSTIPATION Last administered on 02/14/17 21:18; Start 02/08/17 at 16:30 Insulin Aspart (NovoLOG) 0-9 UNITS TIDWMEALS SQ Last administered on 08:20; Start 02/08/17 at 17:00 Dextrose (Dextrose 50%-Water Syringe) 12.5 gm PRN Q15MIN PRN IV SEE COMMENTS; Start 02/08/17 at 16:30 Albuterol Sulfate (Ventolin Neb Soln) 2.5 mg PRN Q4HRS PRN NEB SHORTNESS OF BREATH Last administered on 02/10/17 04:31; Start 02/08/17 at 16:30 Albuterol/ Ipratropium (Duoneb) 3 ml RTQID NEB Last administered on 02/15/17 07:56; Start 02/08/17 at 17:00 Heparin Sodium (Porcine) (Heparin Sq) 5,000 unit Q8HRS SQ Last administered on 02/15/17 06:01; Start 02/08/17 at 22:00 Alprazolam (Xanax) 0.25 mg PRN BID PRN PO ANXIETY / AGITATION Last administered on 02/08/17 17:52; Start 02/08/17 at 17:15; Stop 02/08/17 at 19 :44; Status DC Ceftriaxone Sodium 50 ml @ 100 mls/hr DAILY IV ; Start 02/09/17 at 09:00; Status UNV Alprazolam (Xanax) 0.5 mg PRN Q6HRS PRN PO ANXIETY / AGITATION Last administered on 02/09/17 08:43; Start 02/08/17 at 19:45; Stop 02/09/17 at 10 :55; Status DC Ceftriaxone Sodium (Rocephin) 1 gm Q24H IVP Last administered on 02/10/17 21: 24; Start 02/08/17 at 20:00; Stop 02/11/17 at 15:00; Status DC Potassium Chloride (Klor-Con) 40 meq 1X ONCE PO Last administered on 08:43; Start 02/09/17 at 08:15; Stop 02/09/17 at 08:16; Status DC Potassium Chloride (Klor-Con) 40 meq 1X ONCE PO Last administered on 12:23; Start 02/09/17 at 12:00; Stop 02/09/17 at 12:01; Status DC Dobutamine HCl/ Dextrose 250 ml @ 0 mls/hr CONT PRN IV SEE I/O RECORD Last administered on 02/11/17 19:43; Start 02/09/17 at 08:15; Stop 02/12/17 at 09 :53; Status DC Alprazolam (Xanax) 0.25 mg PRN Q6HRS PRN PO ANXIETY / AGITATION Last administered on 02/12/17 09:30; Start 02/09/17 at 11:00; Stop 02/12/17 at 13 :09; Status DC Potassium Chloride (Klor-Con) 40 meq PRN Q4HRS PRN PO for K < 4.0 Last administered on 02/09/17 22:13; Start 02/09/17 at 11:15 Albumin Human 100 ml @ 100 mls/hr 1X ONCE IV Last administered on 02/10/17 12:00; Start 02/10/17 at 12:00; Stop 02/10/17 at 12:59; Status DC Albumin Human 100 ml @ 100 mls/hr 1X ONCE IV Last administered on 02/10/17 21:23; Start 02/10/17 at 20:00; Stop 02/10/17 at 20:59; Status DC Magnesium Sulfate/ Dextrose 50 ml @ 25 mls/hr PRN DAILY PRN IV for Mag < 1.7 on am labs; Start 02/11/17 at 11:30 Cefpodoxime Proxetil (Vantin) 100 mg BID PO Last administered on 02/14/17 08: 24; Start 02/11/17 at 21:00; Stop 02/14/17 at 11:12; Status DC Heparin Sodium/ Sodium Chloride 1,000 unit 1X ONCE IART Last administered on 02/12/17 13:18; Start 02/12/17 at 13:00; Stop 02/12/17 at 13:05; Status DC Midazolam HCl (Versed) 2 mg 1X ONCE IV Last administered on 02/12/17 13:20; Start 02/12/17 at 13:00; Stop 02/12/17 at 13:05; Status DC Fentanyl Citrate (Fentanyl 2ml Vial) 100 mcg 1X ONCE IV Last administered on 02/12/17 13:20; Start 02/12/17 at 13:00; Stop 02/12/17 at 13:05; Status DC Lidocaine/ Epinephrine (Xylocaine 1%-Epi 1:100,000) 20 ml 1X ONCE IJ Last administered on 02/12/17 13:21; Start 02/12/17 at 13:00; Stop 02/12/17 at 13 :05; Status DC Heparin Sodium (Porcine) (Heparin Sodium) 3,800 unit 1X ONCE INT CAT Last administered on 02/12/17 13:20; Start 02/12/17 at 13:00; Stop 02/12/17 at 13 :05; Status DC Cefazolin Sodium/ Dextrose 50 ml @ 100 mls/hr 1X ONCE IV Last administered on 02/12/17 13:21; Start 02/12/17 at 13:00; Stop 02/12/17 at 13:29; Status DC Alprazolam (Xanax) 1 mg PRN Q6HRS PRN PO ANXIETY / AGITATION Last administered on 02/15/17 08:12; Start 02/12/17 at 13:15 Sodium Chloride 1,000 ml @ 1,000 mls/hr Q1H PRN IV hypotension; Start at 18:54; Stop 02/13/17 at 00:53; Status DC Sodium Chloride 1,000 ml @ 400 mls/hr Q2H30M PRN IV PATENCY; Start 02/12/17 at 18:54; Stop 02/13/17 at 06:53; Status DC Info (PHARMACY MONITORING -- do not chart) 1 each PRN DAILY PRN MC SEE COMMENTS ; Start 02/12/17 at 19:00; Stop 02/14/17 at 11:07; Status DC Sodium Chloride 1,000 ml @ 1,000 mls/hr Q1H PRN IV hypotension; Start at 13:21; Stop 02/13/17 at 19:20; Status DC Info (PHARMACY MONITORING -- do not chart) 1 each PRN DAILY PRN MC SEE COMMENTS ; Start 02/13/17 at 13:30 Cefpodoxime Proxetil (Vantin) 100 mg QHS PO Last administered on 02/14/17 21: 18; Start 02/14/17 at 21:00 Sodium Chloride 1,000 ml @ 1,000 mls/hr Q1H PRN IV hypotension; Start at 07:46; Stop 02/15/17 at 13:45; Status DC Sodium Chloride (Normal Saline Flush) 10 ml 1X PRN PRN IV AP catheter pack; Start 02/15/17 at 08:00; Stop 02/16/17 at 07:59 Sodium Chloride (Normal Saline Flush) 10 ml 1X PRN PRN IV [employer]LYST catheter pack; Start 02/15/17 at 08:00; Stop 02/16/17 at 07:59 Sodium Chloride 1,000 ml @ 400 mls/hr Q2H30M PRN IV PATENCY; Start 02/15/17 at 07:46; Stop 02/15/17 at 19:45 Info (PHARMACY MONITORING -- do not chart) 1 each PRN DAILY PRN MC SEE COMMENTS ; Start 02/15/17 at 08:00; Status UNV Info (PHARMACY MONITORING -- do not chart) 1 each PRN DAILY PRN MC SEE COMMENTS ; Start 02/15/17 at 08:00; Status UNV Active Scripts Active Novolog (Insulin Aspart) 100 Unit/1 Ml Cartridge 25 Unit SQ TID 30 Days Metolazone 2.5 Mg Tablet 2.5 Mg PO DAILY Flomax (Tamsulosin Hcl) 0.4 Mg Cap.er.24h 0.4 Mg PO DAILY Reported Trazodone Hcl 100 Mg Tablet 100 Mg PO HS Glipizide 10 Mg Tablet 1 Tab PO BID Spironolactone 25 Mg Tablet 1 Tab PO DAILY Multi-Day Vitamins (Multivitamin) 1 Each Tablet 1 Tab PO DAILY Vitamin D3 (Cholecalciferol (Vitamin D3)) 1,000 Unit Tablet 1 Tab PO DAILY Aspirin 325 Mg Tablet 1 Tab PO DAILY Bumetanide 2 Mg Tablet 1 Tab PO DAILY Lantus Solostar (Insulin Glargine,Hum.rec.anlog) 100 Unit/1 Ml Insuln.pen 75 Unit SQ QHS Clopidogrel (Clopidogrel Bisulfate) 75 Mg Tablet 1 Tab PO DAILY Vitals/I & O Vital Sign - Last 24 Hours 02/14/17 02/14/17 02/14/17 02/14/17 15:00 16:11 19:12 19:23 Temp 98.2 98.0 98.2 98.0 Pulse 96 94 Resp 20 18 B/P (MAP) 91/64 (73) 105/54 (71) Pulse Ox 94 94 93 O2 Delivery Nasal Cannula Nasal Cannula Nasal Cannula Nasal Cannula O2 Flow Rate 2.0 2.0 2.0 2.0 02/14/17 02/14/17 02/15/17 02/15/17 19:30 22:34 03:00 07:00 Temp 99.1 98.2 98.6 99.1 98.2 98.6 Pulse 103 102 95 Resp 24 19 B/P (MAP) 105/60 (75) 117/65 (82) 123/56 (78) Pulse Ox 92 94 92 O2 Delivery Nasal Cannula Nasal Cannula Nasal Cannula Nasal Cannula O2 Flow Rate 2.0 2.0 3.0 2.0 02/15/17 02/15/17 07:57 08:10 Pulse Ox 95 O2 Delivery Nasal Cannula Nasal Cannula O2 Flow Rate 2.0 2.0 Intake and Output 02/14/17 02/14/17 02/15/17 15:00 23:00 07:00 Intake Total 325 ml 630 ml Output Total 500 ml Balance 325 ml 130 ml CARMENZA DICKERSON MD Feb 15, 2017 14:58
[2017-02-15 14:59] VITALS: BP 124/42
[2017-02-15] MEDS: IV NORMAL SALINE 1000ML BAG 1,000 ML IV SCH (18:39)
[2017-02-15 19:05] VITALS: BP 98/46
[2017-02-15] MEDS: CEFPODOXIME PROXETIL 100 MG TABLET. PO SCH (20:47)
[2017-02-15] MEDS: traZODone 100 MG TABLET. PO SCH (20:47)
[2017-02-15] MEDS: INSULIN DETEMIR 300 UNITS/3 ML INSULN.PEN. SQ SCH (20:55)
[2017-02-15 23:15] VITALS: BP 99/50
[2017-02-16 03:20] VITALS: BP 98/53
[2017-02-16 05:12] LABS: BASO # 0.1 x10^3/uL (0.0-0.2); BASO % 1 % (0-3); EOS % 5 % (0-3); HEMATOCRIT 29.2 % (39.0-53.0); HEMOGLOBIN 9.6 g/dL (13.0-17.5); LYMPH # 1.2 x10^3/uL (1.0-4.8); LYMPH % 12 % (24-48); MEAN CORPUSCULAR HEMOGLOBIN 28 pg (25-35); MEAN CORPUSCULAR HGB CONC 33 g/dL (31-37); MEAN CORPUSCULAR VOLUME 86 fL (79-100); MONO % 10 % (0-9); NEUT % 73 % (31-73); PLATELET COUNT 332 x10^3/uL (140-400); RED BLOOD COUNT 3.39 x10^6/uL (4.30-5.70); RED CELL DISTRIBUTION WIDTH 15.1 % (11.5-14.5); WHITE BLOOD COUNT 10.2 x10^3/uL (4.0-11.0)
[2017-02-16 05:46] LABS: CALCIUM 8.9 mg/dL (8.5-10.1); CREATININE 2.7 mg/dL (0.7-1.3); GFR 23.2; POTASSIUM 3.6 mmol/L (3.5-5.1)
[2017-02-16] MEDS: HEPARIN PF for SUB-Q USE 5,000 UNIT/0.5 ML VIAL. SQ SCH ×3 (05:56→21:26)
[2017-02-16 06:10] LABS: ALBUMIN 2.7 g/dL (3.4-5.0); CALCIUM 8.7 mg/dL (8.5-10.1); CREATININE 2.7 mg/dL (0.7-1.3); GFR 23.2; PHOSPHORUS 4.4 mg/dL (2.6-4.7); POTASSIUM 3.8 mmol/L (3.5-5.1)
[2017-02-16 07:00] VITALS: BP 151/58
[2017-02-16] MEDS: INSULIN ASPART 300 UNITS/3 ML INSULN.PEN SQ SCH ×6 (07:30→17:31)
[2017-02-16] MEDS: glipiZIDE 5 MG TABLET PO SCH ×2 (07:30→17:27)
[2017-02-16] MEDS: CHOLECALCIFEROL (VITAMIN D3) 1,000 UNIT TABLET PO SCH (07:54)
[2017-02-16] MEDS: TAMSULOSIN 0.4 MG CAP.ER.24H. PO SCH (07:54)
[2017-02-16] MEDS: ASPIRIN 325 MG TABLET PO SCH (07:54)
[2017-02-16] MEDS: MULTIVITAMIN with MINERAL TABLET. PO SCH (07:57)
[2017-02-16] MEDS: CLOPIDOGREL BISULFATE 75 MG TABLET PO SCH (07:57)
[2017-02-16] MEDS: IPRATRPIUM/ALBUTEROL 0.5/2.5MG 3 ML NEBU. NEB SCH ×4 (08:17→17:42)
[2017-02-16 11:00] VITALS: BP 102/53
--- NOTE | 2017-02-16 11:15 | PDOC ---
PROGRESS NOTES Subjective Subjective Patient is resting. No new complaints. Feels a little stronger. Objective Objective Vital Signs Date Time Temp Pulse Resp B/P (MAP) Pulse Ox O2 Delivery O2 Flow Rate FiO2 02/16/17 08:18 96 Nasal Cannula 2.0 02/16/17 07:00 98.0 75 22 151/58 (89) 98.0 Physical Exam Physical Exam No significant changes in cardiac exam. Assessment Assessment She continues to improve. I think that he will need dialysis for life but I will leave that up to the juvenile justice specialist. From my perspective I think that he may go to a rehabilitation facility whenever it is set up. Problems Medical Problems: (1) CHF (congestive heart failure) Status: Acute Comment Review of Relevant I have reviewed the following items sukumar (where applicable) has been applied. Labs Laboratory Tests Test 02/14/17 11:53 02/14/17 16:45 02/14/17 20:33 02/15/17 03:55 Glucose (Fingerstick) 235 mg/dL (70-99) 163 mg/dL (70-99) 270 mg/dL (70-99) White Blood Count 10.1 x10^3/uL (4.0-11.0) Red Blood Count 3.37 x10^6/uL (4.30-5.70) Hemoglobin 9.7 g/dL (13.0-17.5) Hematocrit 29.2 % (39.0-53.0) Mean Corpuscular Volume 87 fL (79-100) Mean Corpuscular Hemoglobin 29 pg (25-35) Mean Corpuscular Hemoglobin Concent 33 g/dL (31-37) Red Cell Distribution Width 15.5 % (11.5-14.5) Platelet Count 337 x10^3/uL (140-400) Neutrophils (%) (Auto) 72 % (31-73) Lymphocytes (%) (Auto) 10 % (24-48) Monocytes (%) (Auto) 10 % (0-9) Eosinophils (%) (Auto) 7 % (0-3) Basophils (%) (Auto) 1 % (0-3) Neutrophils # (Auto) 7.4 x10^3uL (1.8-7.7) Lymphocytes # (Auto) 1.0 x10^3/uL (1.0-4.8) Monocytes # (Auto) 1.0 x10^3/uL (0.0-1.1) Eosinophils # (Auto) 0.7 x10^3/uL (0.0-0.7) Basophils # (Auto) 0.1 x10^3/uL (0.0-0.2) Sodium Level 126 mmol/L (136-145) Potassium Level 5.1 mmol/L (3.5-5.1) Chloride Level 91 mmol/L (98-107) Carbon Dioxide Level 27 mmol/L (21-32) Anion Gap 8 (6-14) Blood Urea Nitrogen 55 mg/dL (8-26) Creatinine 3.7 mg/dL (0.7-1.3) Estimated GFR (Cockcroft-Gault) 16.1 Glucose Level 438 mg/dL (70-99) Calcium Level 8.7 mg/dL (8.5-10.1) Phosphorus Level 5.0 mg/dL (2.6-4.7) Albumin 2.5 g/dL (3.4-5.0) Test 02/15/17 07:46 02/15/17 10:00 02/15/17 13:22 02/15/17 16:07 Glucose (Fingerstick) 367 mg/dL (70-99) 111 mg/dL (70-99) 199 mg/dL (70-99) 25-Hydroxy Vitamin D Total 35.9 ng/mL (30-100) Hepatitis B Surface Antibody Non reactive (.) Test 02/15/17 19:30 02/16/17 04:15 02/16/17 07:57 02/16/17 08:53 Glucose (Fingerstick) 124 mg/dL (70-99) 55 mg/dL (70-99) 78 mg/dL (70-99) White Blood Count 10.2 x10^3/uL (4.0-11.0) Red Blood Count 3.39 x10^6/uL (4.30-5.70) Hemoglobin 9.6 g/dL (13.0-17.5) Hematocrit 29.2 % (39.0-53.0) Mean Corpuscular Volume 86 fL (79-100) Mean Corpuscular Hemoglobin 28 pg (25-35) Mean Corpuscular Hemoglobin Concent 33 g/dL (31-37) Red Cell Distribution Width 15.1 % (11.5-14.5) Platelet Count 332 x10^3/uL (140-400) Neutrophils (%) (Auto) 73 % (31-73) Lymphocytes (%) (Auto) 12 % (24-48) Monocytes (%) (Auto) 10 % (0-9) Eosinophils (%) (Auto) 5 % (0-3) Basophils (%) (Auto) 1 % (0-3) Neutrophils # (Auto) 7.5 x10^3uL (1.8-7.7) Lymphocytes # (Auto) 1.2 x10^3/uL (1.0-4.8) Monocytes # (Auto) 1.0 x10^3/uL (0.0-1.1) Eosinophils # (Auto) 0.5 x10^3/uL (0.0-0.7) Basophils # (Auto) 0.1 x10^3/uL (0.0-0.2) Sodium Level 136 mmol/L (136-145) Potassium Level 3.6 mmol/L (3.5-5.1) Chloride Level 98 mmol/L (98-107) Carbon Dioxide Level 29 mmol/L (21-32) Anion Gap 9 (6-14) Blood Urea Nitrogen 32 mg/dL (8-26) Creatinine 2.7 mg/dL (0.7-1.3) Estimated GFR (Cockcroft-Gault) 23.2 Glucose Level 53 mg/dL (70-99) Calcium Level 8.9 mg/dL (8.5-10.1) Phosphorus Level 4.4 mg/dL (2.6-4.7) Albumin 2.7 g/dL (3.4-5.0) Laboratory Tests Test 02/15/17 13:22 02/15/17 16:07 02/15/17 19:30 02/16/17 04:15 Glucose (Fingerstick) 111 mg/dL (70-99) 199 mg/dL (70-99) 124 mg/dL (70-99) White Blood Count 10.2 x10^3/uL (4.0-11.0) Red Blood Count 3.39 x10^6/uL (4.30-5.70) Hemoglobin 9.6 g/dL (13.0-17.5) Hematocrit 29.2 % (39.0-53.0) Mean Corpuscular Volume 86 fL (79-100) Mean Corpuscular Hemoglobin 28 pg (25-35) Mean Corpuscular Hemoglobin Concent 33 g/dL (31-37) Red Cell Distribution Width 15.1 % (11.5-14.5) Platelet Count 332 x10^3/uL (140-400) Neutrophils (%) (Auto) 73 % (31-73) Lymphocytes (%) (Auto) 12 % (24-48) Monocytes (%) (Auto) 10 % (0-9) Eosinophils (%) (Auto) 5 % (0-3) Basophils (%) (Auto) 1 % (0-3) Neutrophils # (Auto) 7.5 x10^3uL (1.8-7.7) Lymphocytes # (Auto) 1.2 x10^3/uL (1.0-4.8) Monocytes # (Auto) 1.0 x10^3/uL (0.0-1.1) Eosinophils # (Auto) 0.5 x10^3/uL (0.0-0.7) Basophils # (Auto) 0.1 x10^3/uL (0.0-0.2) Sodium Level 136 mmol/L (136-145) Potassium Level 3.6 mmol/L (3.5-5.1) Chloride Level 98 mmol/L (98-107) Carbon Dioxide Level 29 mmol/L (21-32) Anion Gap 9 (6-14) Blood Urea Nitrogen 32 mg/dL (8-26) Creatinine 2.7 mg/dL (0.7-1.3) Estimated GFR (Cockcroft-Gault) 23.2 Glucose Level 53 mg/dL (70-99) Calcium Level 8.9 mg/dL (8.5-10.1) Phosphorus Level 4.4 mg/dL (2.6-4.7) Albumin 2.7 g/dL (3.4-5.0) Test 02/16/17 07:57 02/16/17 08:53 Glucose (Fingerstick) 55 mg/dL (70-99) 78 mg/dL (70-99) Microbiology 02/08/17 Urine Culture - Final, Complete 02/08/17 Urine Culture Result 1 (RIANNA) - Final, Complete Medications Current Medications Albuterol/ Ipratropium (Duoneb) 3 ml 1X ONCE NEB Last administered on 10:25; Start 02/08/17 at 09:30; Stop 02/08/17 at 09:38; Status DC Nitroglycerin (Nitro-Bid Oint) 1 inch 1X ONCE TP Last administered on 09:45; Start 02/08/17 at 09:30; Stop 02/08/17 at 09:38; Status DC Furosemide (Lasix) 40 mg 1X ONCE IVP Last administered on 02/08/17 09:45; Start 02/08/17 at 09:30; Stop 02/08/17 at 09:38; Status DC Ondansetron HCl (Zofran) 4 mg PRN Q8HRS PRN IV NAUSEA/VOMITING; Start at 11:30; Stop 02/09/17 at 11:29; Status DC Furosemide 100 mg/ Sodium Chloride 100 ml @ 0 mls/hr CONT PRN IV PER PROTOCOL Last administered on 02/12/17 08:37; Start 02/08/17 at 11:30; Stop 02/12/17 at 09:53; Status DC Aspirin (Bhavya Aspirin) 325 mg DAILY PO Last administered on 02/16/17 07:54; Start 02/09/17 at 09:00 Vitamin D (Vitamin D3) 1,000 unit DAILY PO Last administered on 02/16/17 07: 54; Start 02/09/17 at 09:00 Clopidogrel Bisulfate (Plavix) 75 mg DAILY PO Last administered on 02/16/17 07:57; Start 02/09/17 at 09:00 Metolazone (Zaroxolyn) 2.5 mg DAILY PO ; Start 02/09/17 at 09:00; Stop at 09:00; Status DC Spironolactone (Aldactone) 25 mg DAILY PO ; Start 02/09/17 at 09:00; Stop at 13:33; Status DC Tamsulosin HCl (Flomax) 0.4 mg DAILY PO Last administered on 02/16/17 07:54; Start 02/09/17 at 09:00 Trazodone HCl (Desyrel) 100 mg HS PO Last administered on 02/15/17 20:47; Start 02/08/17 at 21:00 Non-Formulary Medication 1 tab DAILY PO ; Start 02/09/17 at 09:00; Stop at 09:00; Status DC Glipizide (Glucotrol) 10 mg BIDBFRMEAL PO Last administered on 02/15/17 17:00 ; Start 02/09/17 at 17:00 Insulin Aspart (NovoLOG) 20 units TIDAC SQ Last administered on 02/15/17 17: 01; Start 02/08/17 at 16:30 Insulin Detemir (Levemir) 60 units QHS SQ Last administered on 02/15/17 20:55 ; Start 02/08/17 at 21:00 Multivitamins (Thera M Plus) 1 tab DAILY PO Last administered on 02/16/17 07: 57; Start 02/09/17 at 09:00 Acetaminophen (Tylenol) 650 mg PRN Q6HRS PRN PO FEVER; Start 02/08/17 at 16:30 Ondansetron HCl (Zofran) 4 mg PRN Q6HRS PRN IV NAUSEA/VOMITING; Start at 16:30 Morphine Sulfate 2 mg PRN Q2HR PRN IV PAIN; Start 02/08/17 at 16:30 Tramadol HCl (Ultram) 50 mg PRN Q6HRS PRN PO PAIN Last administered on 21:24; Start 02/08/17 at 16:30 Hydralazine HCl (Apresoline Inj) 10 mg PRN Q4HRS PRN IVP ELEVATED BP, SEE COMMENTS; Start 02/08/17 at 16:30 Docusate Sodium (Colace) 100 mg PRN DAILY PRN PO CONSTIPATION Last administered on 02/14/17 21:18; Start 02/08/17 at 16:30 Insulin Aspart (NovoLOG) 0-9 UNITS TIDWMEALS SQ Last administered on 08:20; Start 02/08/17 at 17:00 Dextrose (Dextrose 50%-Water Syringe) 12.5 gm PRN Q15MIN PRN IV SEE COMMENTS; Start 02/08/17 at 16:30 Albuterol Sulfate (Ventolin Neb Soln) 2.5 mg PRN Q4HRS PRN NEB SHORTNESS OF BREATH Last administered on 02/10/17 04:31; Start 02/08/17 at 16:30 Albuterol/ Ipratropium (Duoneb) 3 ml RTQID NEB Last administered on 02/16/17 08:17; Start 02/08/17 at 17:00 Heparin Sodium (Porcine) (Heparin Sq) 5,000 unit Q8HRS SQ Last administered on 02/16/17 05:56; Start 02/08/17 at 22:00 Alprazolam (Xanax) 0.25 mg PRN BID PRN PO ANXIETY / AGITATION Last administered on 02/08/17 17:52; Start 02/08/17 at 17:15; Stop 02/08/17 at 19 :44; Status DC Ceftriaxone Sodium 50 ml @ 100 mls/hr DAILY IV ; Start 02/09/17 at 09:00; Status UNV Alprazolam (Xanax) 0.5 mg PRN Q6HRS PRN PO ANXIETY / AGITATION Last administered on 02/09/17 08:43; Start 02/08/17 at 19:45; Stop 02/09/17 at 10 :55; Status DC Ceftriaxone Sodium (Rocephin) 1 gm Q24H IVP Last administered on 02/10/17 21: 24; Start 02/08/17 at 20:00; Stop 02/11/17 at 15:00; Status DC Potassium Chloride (Klor-Con) 40 meq 1X ONCE PO Last administered on 08:43; Start 02/09/17 at 08:15; Stop 02/09/17 at 08:16; Status DC Potassium Chloride (Klor-Con) 40 meq 1X ONCE PO Last administered on 12:23; Start 02/09/17 at 12:00; Stop 02/09/17 at 12:01; Status DC Dobutamine HCl/ Dextrose 250 ml @ 0 mls/hr CONT PRN IV SEE I/O RECORD Last administered on 02/11/17 19:43; Start 02/09/17 at 08:15; Stop 02/12/17 at 09 :53; Status DC Alprazolam (Xanax) 0.25 mg PRN Q6HRS PRN PO ANXIETY / AGITATION Last administered on 02/12/17 09:30; Start 02/09/17 at 11:00; Stop 02/12/17 at 13 :09; Status DC Potassium Chloride (Klor-Con) 40 meq PRN Q4HRS PRN PO for K < 4.0 Last administered on 02/09/17 22:13; Start 02/09/17 at 11:15 Albumin Human 100 ml @ 100 mls/hr 1X ONCE IV Last administered on 02/10/17 12:00; Start 02/10/17 at 12:00; Stop 02/10/17 at 12:59; Status DC Albumin Human 100 ml @ 100 mls/hr 1X ONCE IV Last administered on 02/10/17 21:23; Start 02/10/17 at 20:00; Stop 02/10/17 at 20:59; Status DC Magnesium Sulfate/ Dextrose 50 ml @ 25 mls/hr PRN DAILY PRN IV for Mag < 1.7 on am labs; Start 02/11/17 at 11:30 Cefpodoxime Proxetil (Vantin) 100 mg BID PO Last administered on 02/14/17 08: 24; Start 02/11/17 at 21:00; Stop 02/14/17 at 11:12; Status DC Heparin Sodium/ Sodium Chloride 1,000 unit 1X ONCE IART Last administered on 02/12/17 13:18; Start 02/12/17 at 13:00; Stop 02/12/17 at 13:05; Status DC Midazolam HCl (Versed) 2 mg 1X ONCE IV Last administered on 02/12/17 13:20; Start 02/12/17 at 13:00; Stop 02/12/17 at 13:05; Status DC Fentanyl Citrate (Fentanyl 2ml Vial) 100 mcg 1X ONCE IV Last administered on 02/12/17 13:20; Start 02/12/17 at 13:00; Stop 02/12/17 at 13:05; Status DC Lidocaine/ Epinephrine (Xylocaine 1%-Epi 1:100,000) 20 ml 1X ONCE IJ Last administered on 02/12/17 13:21; Start 02/12/17 at 13:00; Stop 02/12/17 at 13 :05; Status DC Heparin Sodium (Porcine) (Heparin Sodium) 3,800 unit 1X ONCE INT CAT Last administered on 02/12/17 13:20; Start 02/12/17 at 13:00; Stop 02/12/17 at 13 :05; Status DC Cefazolin Sodium/ Dextrose 50 ml @ 100 mls/hr 1X ONCE IV Last administered on 02/12/17 13:21; Start 02/12/17 at 13:00; Stop 02/12/17 at 13:29; Status DC Alprazolam (Xanax) 1 mg PRN Q6HRS PRN PO ANXIETY / AGITATION Last administered on 02/15/17 20:47; Start 02/12/17 at 13:15 Sodium Chloride 1,000 ml @ 1,000 mls/hr Q1H PRN IV hypotension; Start at 18:54; Stop 02/13/17 at 00:53; Status DC Sodium Chloride 1,000 ml @ 400 mls/hr Q2H30M PRN IV PATENCY; Start 02/12/17 at 18:54; Stop 02/13/17 at 06:53; Status DC Info (PHARMACY MONITORING -- do not chart) 1 each PRN DAILY PRN MC SEE COMMENTS ; Start 02/12/17 at 19:00; Stop 02/14/17 at 11:07; Status DC Sodium Chloride 1,000 ml @ 1,000 mls/hr Q1H PRN IV hypotension; Start at 13:21; Stop 02/13/17 at 19:20; Status DC Info (PHARMACY MONITORING -- do not chart) 1 each PRN DAILY PRN MC SEE COMMENTS ; Start 02/13/17 at 13:30 Cefpodoxime Proxetil (Vantin) 100 mg QHS PO Last administered on 02/15/17 20: 47; Start 02/14/17 at 21:00 Sodium Chloride 1,000 ml @ 1,000 mls/hr Q1H PRN IV hypotension; Start at 07:46; Stop 02/15/17 at 13:45; Status DC Sodium Chloride (Normal Saline Flush) 10 ml 1X PRN PRN IV AP catheter pack; Start 02/15/17 at 08:00; Stop 02/16/17 at 07:59; Status DC Sodium Chloride (Normal Saline Flush) 10 ml 1X PRN PRN IV INFECTION CONTROL PRACTITIONER catheter pack; Start 02/15/17 at 08:00; Stop 02/16/17 at 07:59; Status DC Sodium Chloride 1,000 ml @ 400 mls/hr Q2H30M PRN IV PATENCY; Start 02/15/17 at 07:46; Stop 02/15/17 at 19:45; Status DC Info (PHARMACY MONITORING -- do not chart) 1 each PRN DAILY PRN MC SEE COMMENTS ; Start 02/15/17 at 08:00; Status UNV Info (PHARMACY MONITORING -- do not chart) 1 each PRN DAILY PRN MC SEE COMMENTS ; Start 02/15/17 at 08:00; Status UNV Sodium Chloride 1,000 ml @ 60 mls/hr [id number] IV Last administered on t 18:39; Start 02/15/17 at 19:00 Active Scripts Active Novolog (Insulin Aspart) 100 Unit/1 Ml Cartridge 25 Unit SQ TID 30 Days Metolazone 2.5 Mg Tablet 2.5 Mg PO DAILY Flomax (Tamsulosin Hcl) 0.4 Mg Cap.er.24h 0.4 Mg PO DAILY Reported Trazodone Hcl 100 Mg Tablet 100 Mg PO HS Glipizide 10 Mg Tablet 1 Tab PO BID Spironolactone 25 Mg Tablet 1 Tab PO DAILY Multi-Day Vitamins (Multivitamin) 1 Each Tablet 1 Tab PO DAILY Vitamin D3 (Cholecalciferol (Vitamin D3)) 1,000 Unit Tablet 1 Tab PO DAILY Aspirin 325 Mg Tablet 1 Tab PO DAILY Bumetanide 2 Mg Tablet 1 Tab PO DAILY Lantus Solostar (Insulin Glargine,Hum.rec.anlog) 100 Unit/1 Ml Insuln.pen 75 Unit SQ QHS Clopidogrel (Clopidogrel Bisulfate) 75 Mg Tablet 1 Tab PO DAILY Vitals/I & O Vital Sign - Last 24 Hours 02/15/17 02/15/17 02/15/17 02/15/17 14:59 16:19 19:05 20:00 Temp 97.6 98.1 97.6 98.1 Pulse 86 64 Resp 24 22 B/P (MAP) 124/42 (69) 98/46 (63) Pulse Ox 94 92 95 O2 Delivery Nasal Cannula Nasal Cannula Nasal Cannula Nasal Cannula O2 Flow Rate 2.0 2.0 2.0 2.0 02/15/17 02/15/17 02/16/1725/17 20:59 23:15 03:20 07:00 Temp 98.0 97.6 98.0 98.0 97.6 98.0 Pulse 77 67 75 Resp 20 19 22 B/P (MAP) 99/50 (66) 98/53 (68) 151/58 (89) Pulse Ox 93 95 94 93 O2 Delivery Nasal Cannula Nasal Cannula Nasal Cannula O2 Flow Rate 2.0 3.0 3.0 02/16/17 02/16/17 08:00 08:18 Pulse Ox 96 O2 Delivery Nasal Cannula Nasal Cannula O2 Flow Rate 2.0 2.0 OKSANA JOSEPH MD Feb 16, 2017 11:15
[2017-02-16] MEDS: IV NORMAL SALINE 1000ML BAG 1,000 ML IV SCH (11:40)
--- NOTE | 2017-02-16 12:24 | PDOC ---
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 He has finished 3 days of dialysis. . Vitals Vitals Vital Signs Date Time Temp Pulse Resp B/P (MAP) Pulse Ox O2 Delivery O2 Flow Rate FiO2 02/16/17 11:35 99 Nasal Cannula 2.0 02/16/17 11:00 82 20 102/53 (69) 02/16/17 07:00 98.0 98.0 Physical Exam Physical Exam Srivastava catheter in place General: No acute distress, Other (Asleep) Heart: Regular rate, Normal S1, Normal S2, No murmurs Lungs: Clear, Other (no rubs, rales, rhonchi, wheezing) Extremities: No clubbing, No cyanosis Skin: No rashes, No significant lesion Labs LABS Laboratory Tests Test 02/15/17 13:22 02/15/17 16:07 02/15/17 19:30 02/16/17 04:15 Glucose (Fingerstick) 111 mg/dL (70-99) 199 mg/dL (70-99) 124 mg/dL (70-99) White Blood Count 10.2 x10^3/uL (4.0-11.0) Red Blood Count 3.39 x10^6/uL (4.30-5.70) Hemoglobin 9.6 g/dL (13.0-17.5) Hematocrit 29.2 % (39.0-53.0) Mean Corpuscular Volume 86 fL (79-100) Mean Corpuscular Hemoglobin 28 pg (25-35) Mean Corpuscular Hemoglobin Concent 33 g/dL (31-37) Red Cell Distribution Width 15.1 % (11.5-14.5) Platelet Count 332 x10^3/uL (140-400) Neutrophils (%) (Auto) 73 % (31-73) Lymphocytes (%) (Auto) 12 % (24-48) Monocytes (%) (Auto) 10 % (0-9) Eosinophils (%) (Auto) 5 % (0-3) Basophils (%) (Auto) 1 % (0-3) Neutrophils # (Auto) 7.5 x10^3uL (1.8-7.7) Lymphocytes # (Auto) 1.2 x10^3/uL (1.0-4.8) Monocytes # (Auto) 1.0 x10^3/uL (0.0-1.1) Eosinophils # (Auto) 0.5 x10^3/uL (0.0-0.7) Basophils # (Auto) 0.1 x10^3/uL (0.0-0.2) Sodium Level 136 mmol/L (136-145) Potassium Level 3.6 mmol/L (3.5-5.1) Chloride Level 98 mmol/L (98-107) Carbon Dioxide Level 29 mmol/L (21-32) Anion Gap 9 (6-14) Blood Urea Nitrogen 32 mg/dL (8-26) Creatinine 2.7 mg/dL (0.7-1.3) Estimated GFR (Cockcroft-Gault) 23.2 Glucose Level 53 mg/dL (70-99) Calcium Level 8.9 mg/dL (8.5-10.1) Phosphorus Level 4.4 mg/dL (2.6-4.7) Albumin 2.7 g/dL (3.4-5.0) Test 02/16/17 07:57 02/16/17 08:53 02/16/17 11:25 Glucose (Fingerstick) 55 mg/dL (70-99) 78 mg/dL (70-99) 184 mg/dL (70-99) Review of Systems Review of Systems Unobtainable Assessment and Plan Assessmemt and Plan Problems Medical Problems: (1) CHF (congestive heart failure) Status: Acute ASSESSMENT: Acute hypoxia Acute on chronic systolic CHF exacerbation COPD DM2 HTN History of CAD with CABG Anxiety 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 Labs Laboratory Tests Test 02/14/17 16:45 02/14/17 20:33 02/15/17 03:55 02/15/17 07:46 Glucose (Fingerstick) 163 mg/dL (70-99) 270 mg/dL (70-99) 367 mg/dL (70-99) White Blood Count 10.1 x10^3/uL (4.0-11.0) Red Blood Count 3.37 x10^6/uL (4.30-5.70) Hemoglobin 9.7 g/dL (13.0-17.5) Hematocrit 29.2 % (39.0-53.0) Mean Corpuscular Volume 87 fL (79-100) Mean Corpuscular Hemoglobin 29 pg (25-35) Mean Corpuscular Hemoglobin Concent 33 g/dL (31-37) Red Cell Distribution Width 15.5 % (11.5-14.5) Platelet Count 337 x10^3/uL (140-400) Neutrophils (%) (Auto) 72 % (31-73) Lymphocytes (%) (Auto) 10 % (24-48) Monocytes (%) (Auto) 10 % (0-9) Eosinophils (%) (Auto) 7 % (0-3) Basophils (%) (Auto) 1 % (0-3) Neutrophils # (Auto) 7.4 x10^3uL (1.8-7.7) Lymphocytes # (Auto) 1.0 x10^3/uL (1.0-4.8) Monocytes # (Auto) 1.0 x10^3/uL (0.0-1.1) Eosinophils # (Auto) 0.7 x10^3/uL (0.0-0.7) Basophils # (Auto) 0.1 x10^3/uL (0.0-0.2) Sodium Level 126 mmol/L (136-145) Potassium Level 5.1 mmol/L (3.5-5.1) Chloride Level 91 mmol/L (98-107) Carbon Dioxide Level 27 mmol/L (21-32) Anion Gap 8 (6-14) Blood Urea Nitrogen 55 mg/dL (8-26) Creatinine 3.7 mg/dL (0.7-1.3) Estimated GFR (Cockcroft-Gault) 16.1 Glucose Level 438 mg/dL (70-99) Calcium Level 8.7 mg/dL (8.5-10.1) Phosphorus Level 5.0 mg/dL (2.6-4.7) Albumin 2.5 g/dL (3.4-5.0) Test 02/15/17 10:00 02/15/17 13:22 02/15/17 16:07 02/15/17 19:30 25-Hydroxy Vitamin D Total 35.9 ng/mL (30-100) Hepatitis B Surface Antibody Non reactive (.) Glucose (Fingerstick) 111 mg/dL (70-99) 199 mg/dL (70-99) 124 mg/dL (70-99) Test 02/16/17 04:15 02/16/17 07:57 02/16/17 08:53 02/16/17 11:25 White Blood Count 10.2 x10^3/uL (4.0-11.0) Red Blood Count 3.39 x10^6/uL (4.30-5.70) Hemoglobin 9.6 g/dL (13.0-17.5) Hematocrit 29.2 % (39.0-53.0) Mean Corpuscular Volume 86 fL (79-100) Mean Corpuscular Hemoglobin 28 pg (25-35) Mean Corpuscular Hemoglobin Concent 33 g/dL (31-37) Red Cell Distribution Width 15.1 % (11.5-14.5) Platelet Count 332 x10^3/uL (140-400) Neutrophils (%) (Auto) 73 % (31-73) Lymphocytes (%) (Auto) 12 % (24-48) Monocytes (%) (Auto) 10 % (0-9) Eosinophils (%) (Auto) 5 % (0-3) Basophils (%) (Auto) 1 % (0-3) Neutrophils # (Auto) 7.5 x10^3uL (1.8-7.7) Lymphocytes # (Auto) 1.2 x10^3/uL (1.0-4.8) Monocytes # (Auto) 1.0 x10^3/uL (0.0-1.1) Eosinophils # (Auto) 0.5 x10^3/uL (0.0-0.7) Basophils # (Auto) 0.1 x10^3/uL (0.0-0.2) Sodium Level 136 mmol/L (136-145) Potassium Level 3.6 mmol/L (3.5-5.1) Chloride Level 98 mmol/L (98-107) Carbon Dioxide Level 29 mmol/L (21-32) Anion Gap 9 (6-14) Blood Urea Nitrogen 32 mg/dL (8-26) Creatinine 2.7 mg/dL (0.7-1.3) Estimated GFR (Cockcroft-Gault) 23.2 Glucose Level 53 mg/dL (70-99) Calcium Level 8.9 mg/dL (8.5-10.1) Phosphorus Level 4.4 mg/dL (2.6-4.7) Albumin 2.7 g/dL (3.4-5.0) Glucose (Fingerstick) 55 mg/dL (70-99) 78 mg/dL (70-99) 184 mg/dL (70-99) Laboratory Tests Test 02/15/17 13:22 02/15/17 16:07 02/15/17 19:30 02/16/17 04:15 Glucose (Fingerstick) 111 mg/dL (70-99) 199 mg/dL (70-99) 124 mg/dL (70-99) White Blood Count 10.2 x10^3/uL (4.0-11.0) Red Blood Count 3.39 x10^6/uL (4.30-5.70) Hemoglobin 9.6 g/dL (13.0-17.5) Hematocrit 29.2 % (39.0-53.0) Mean Corpuscular Volume 86 fL (79-100) Mean Corpuscular Hemoglobin 28 pg (25-35) Mean Corpuscular Hemoglobin Concent 33 g/dL (31-37) Red Cell Distribution Width 15.1 % (11.5-14.5) Platelet Count 332 x10^3/uL (140-400) Neutrophils (%) (Auto) 73 % (31-73) Lymphocytes (%) (Auto) 12 % (24-48) Monocytes (%) (Auto) 10 % (0-9) Eosinophils (%) (Auto) 5 % (0-3) Basophils (%) (Auto) 1 % (0-3) Neutrophils # (Auto) 7.5 x10^3uL (1.8-7.7) Lymphocytes # (Auto) 1.2 x10^3/uL (1.0-4.8) Monocytes # (Auto) 1.0 x10^3/uL (0.0-1.1) Eosinophils # (Auto) 0.5 x10^3/uL (0.0-0.7) Basophils # (Auto) 0.1 x10^3/uL (0.0-0.2) Sodium Level 136 mmol/L (136-145) Potassium Level 3.6 mmol/L (3.5-5.1) Chloride Level 98 mmol/L (98-107) Carbon Dioxide Level 29 mmol/L (21-32) Anion Gap 9 (6-14) Blood Urea Nitrogen 32 mg/dL (8-26) Creatinine 2.7 mg/dL (0.7-1.3) Estimated GFR (Cockcroft-Gault) 23.2 Glucose Level 53 mg/dL (70-99) Calcium Level 8.9 mg/dL (8.5-10.1) Phosphorus Level 4.4 mg/dL (2.6-4.7) Albumin 2.7 g/dL (3.4-5.0) Test 02/16/17 07:57 02/16/17 08:53 02/16/17 11:25 Glucose (Fingerstick) 55 mg/dL (70-99) 78 mg/dL (70-99) 184 mg/dL (70-99) Microbiology 02/08/17 Urine Culture - Final, Complete 02/08/17 Urine Culture Result 1 (RIANNA) - Final, Complete Medications Current Medications Albuterol/ Ipratropium (Duoneb) 3 ml 1X ONCE NEB Last administered on 10:25; Start 02/08/17 at 09:30; Stop 02/08/17 at 09:38; Status DC Nitroglycerin (Nitro-Bid Oint) 1 inch 1X ONCE TP Last administered on 09:45; Start 02/08/17 at 09:30; Stop 02/08/17 at 09:38; Status DC Furosemide (Lasix) 40 mg 1X ONCE IVP Last administered on 02/08/17 09:45; Start 02/08/17 at 09:30; Stop 02/08/17 at 09:38; Status DC Ondansetron HCl (Zofran) 4 mg PRN Q8HRS PRN IV NAUSEA/VOMITING; Start at 11:30; Stop 02/09/17 at 11:29; Status DC Furosemide 100 mg/ Sodium Chloride 100 ml @ 0 mls/hr CONT PRN IV PER PROTOCOL Last administered on 02/12/17 08:37; Start 02/08/17 at 11:30; Stop 02/12/17 at 09:53; Status DC Aspirin (Bhavya Aspirin) 325 mg DAILY PO Last administered on 02/16/17 07:54; Start 02/09/17 at 09:00 Vitamin D (Vitamin D3) 1,000 unit DAILY PO Last administered on 02/16/17 07: 54; Start 02/09/17 at 09:00 Clopidogrel Bisulfate (Plavix) 75 mg DAILY PO Last administered on 02/16/17 07:57; Start 02/09/17 at 09:00 Metolazone (Zaroxolyn) 2.5 mg DAILY PO ; Start 02/09/17 at 09:00; Stop at 09:00; Status DC Spironolactone (Aldactone) 25 mg DAILY PO ; Start 02/09/17 at 09:00; Stop at 13:33; Status DC Tamsulosin HCl (Flomax) 0.4 mg DAILY PO Last administered on 02/16/17 07:54; Start 02/09/17 at 09:00 Trazodone HCl (Desyrel) 100 mg HS PO Last administered on 02/15/17 20:47; Start 02/08/17 at 21:00 Non-Formulary Medication 1 tab DAILY PO ; Start 02/09/17 at 09:00; Stop at 09:00; Status DC Glipizide (Glucotrol) 10 mg BIDBFRMEAL PO Last administered on 02/15/17 17:00 ; Start 02/09/17 at 17:00 Insulin Aspart (NovoLOG) 20 units TIDAC SQ Last administered on 02/15/17 17: 01; Start 02/08/17 at 16:30 Insulin Detemir (Levemir) 60 units QHS SQ Last administered on 02/15/17 20:55 ; Start 02/08/17 at 21:00 Multivitamins (Thera M Plus) 1 tab DAILY PO Last administered on 02/16/17 07: 57; Start 02/09/17 at 09:00 Acetaminophen (Tylenol) 650 mg PRN Q6HRS PRN PO FEVER; Start 02/08/17 at 16:30 Ondansetron HCl (Zofran) 4 mg PRN Q6HRS PRN IV NAUSEA/VOMITING; Start at 16:30 Morphine Sulfate 2 mg PRN Q2HR PRN IV PAIN; Start 02/08/17 at 16:30 Tramadol HCl (Ultram) 50 mg PRN Q6HRS PRN PO PAIN Last administered on 21:24; Start 02/08/17 at 16:30 Hydralazine HCl (Apresoline Inj) 10 mg PRN Q4HRS PRN IVP ELEVATED BP, SEE COMMENTS; Start 02/08/17 at 16:30 Docusate Sodium (Colace) 100 mg PRN DAILY PRN PO CONSTIPATION Last administered on 02/14/17 21:18; Start 02/08/17 at 16:30 Insulin Aspart (NovoLOG) 0-9 UNITS TIDWMEALS SQ Last administered on 08:20; Start 02/08/17 at 17:00 Dextrose (Dextrose 50%-Water Syringe) 12.5 gm PRN Q15MIN PRN IV SEE COMMENTS; Start 02/08/17 at 16:30 Albuterol Sulfate (Ventolin Neb Soln) 2.5 mg PRN Q4HRS PRN NEB SHORTNESS OF BREATH Last administered on 02/10/17 04:31; Start 02/08/17 at 16:30 Albuterol/ Ipratropium (Duoneb) 3 ml RTQID NEB Last administered on 02/16/17 11:35; Start 02/08/17 at 17:00 Heparin Sodium (Porcine) (Heparin Sq) 5,000 unit Q8HRS SQ Last administered on 02/16/17 05:56; Start 02/08/17 at 22:00 Alprazolam (Xanax) 0.25 mg PRN BID PRN PO ANXIETY / AGITATION Last administered on 02/08/17 17:52; Start 02/08/17 at 17:15; Stop 02/08/17 at 19 :44; Status DC Ceftriaxone Sodium 50 ml @ 100 mls/hr DAILY IV ; Start 02/09/17 at 09:00; Status UNV Alprazolam (Xanax) 0.5 mg PRN Q6HRS PRN PO ANXIETY / AGITATION Last administered on 02/09/17 08:43; Start 02/08/17 at 19:45; Stop 02/09/17 at 10 :55; Status DC Ceftriaxone Sodium (Rocephin) 1 gm Q24H IVP Last administered on 02/10/17 21: 24; Start 02/08/17 at 20:00; Stop 02/11/17 at 15:00; Status DC Potassium Chloride (Klor-Con) 40 meq 1X ONCE PO Last administered on 08:43; Start 02/09/17 at 08:15; Stop 02/09/17 at 08:16; Status DC Potassium Chloride (Klor-Con) 40 meq 1X ONCE PO Last administered on 12:23; Start 02/09/17 at 12:00; Stop 02/09/17 at 12:01; Status DC Dobutamine HCl/ Dextrose 250 ml @ 0 mls/hr CONT PRN IV SEE I/O RECORD Last administered on 02/11/17 19:43; Start 02/09/17 at 08:15; Stop 02/12/17 at 09 :53; Status DC Alprazolam (Xanax) 0.25 mg PRN Q6HRS PRN PO ANXIETY / AGITATION Last administered on 02/12/17 09:30; Start 02/09/17 at 11:00; Stop 02/12/17 at 13 :09; Status DC Potassium Chloride (Klor-Con) 40 meq PRN Q4HRS PRN PO for K < 4.0 Last administered on 02/09/17 22:13; Start 02/09/17 at 11:15 Albumin Human 100 ml @ 100 mls/hr 1X ONCE IV Last administered on 02/10/17 12:00; Start 02/10/17 at 12:00; Stop 02/10/17 at 12:59; Status DC Albumin Human 100 ml @ 100 mls/hr 1X ONCE IV Last administered on 02/10/17 21:23; Start 02/10/17 at 20:00; Stop 02/10/17 at 20:59; Status DC Magnesium Sulfate/ Dextrose 50 ml @ 25 mls/hr PRN DAILY PRN IV for Mag < 1.7 on am labs; Start 02/11/17 at 11:30 Cefpodoxime Proxetil (Vantin) 100 mg BID PO Last administered on 02/14/17 08: 24; Start 02/11/17 at 21:00; Stop 02/14/17 at 11:12; Status DC Heparin Sodium/ Sodium Chloride 1,000 unit 1X ONCE IART Last administered on 02/12/17 13:18; Start 02/12/17 at 13:00; Stop 02/12/17 at 13:05; Status DC Midazolam HCl (Versed) 2 mg 1X ONCE IV Last administered on 02/12/17 13:20; Start 02/12/17 at 13:00; Stop 02/12/17 at 13:05; Status DC Fentanyl Citrate (Fentanyl 2ml Vial) 100 mcg 1X ONCE IV Last administered on 02/12/17 13:20; Start 02/12/17 at 13:00; Stop 02/12/17 at 13:05; Status DC Lidocaine/ Epinephrine (Xylocaine 1%-Epi 1:100,000) 20 ml 1X ONCE IJ Last administered on 02/12/17 13:21; Start 02/12/17 at 13:00; Stop 02/12/17 at 13 :05; Status DC Heparin Sodium (Porcine) (Heparin Sodium) 3,800 unit 1X ONCE INT CAT Last administered on 02/12/17 13:20; Start 02/12/17 at 13:00; Stop 02/12/17 at 13 :05; Status DC Cefazolin Sodium/ Dextrose 50 ml @ 100 mls/hr 1X ONCE IV Last administered on 02/12/17 13:21; Start 02/12/17 at 13:00; Stop 02/12/17 at 13:29; Status DC Alprazolam (Xanax) 1 mg PRN Q6HRS PRN PO ANXIETY / AGITATION Last administered on 02/15/17 20:47; Start 02/12/17 at 13:15 Sodium Chloride 1,000 ml @ 1,000 mls/hr Q1H PRN IV hypotension; Start at 18:54; Stop 02/13/17 at 00:53; Status DC Sodium Chloride 1,000 ml @ 400 mls/hr Q2H30M PRN IV PATENCY; Start 02/12/17 at 18:54; Stop 02/13/17 at 06:53; Status DC Info (PHARMACY MONITORING -- do not chart) 1 each PRN DAILY PRN MC SEE COMMENTS ; Start 02/12/17 at 19:00; Stop 02/14/17 at 11:07; Status DC Sodium Chloride 1,000 ml @ 1,000 mls/hr Q1H PRN IV hypotension; Start at 13:21; Stop 02/13/17 at 19:20; Status DC Info (PHARMACY MONITORING -- do not chart) 1 each PRN DAILY PRN MC SEE COMMENTS ; Start 02/13/17 at 13:30 Cefpodoxime Proxetil (Vantin) 100 mg QHS PO Last administered on 02/15/17 20: 47; Start 02/14/17 at 21:00 Sodium Chloride 1,000 ml @ 1,000 mls/hr Q1H PRN IV hypotension; Start at 07:46; Stop 02/15/17 at 13:45; Status DC Sodium Chloride (Normal Saline Flush) 10 ml 1X PRN PRN IV AP catheter pack; Start 02/15/17 at 08:00; Stop 02/16/17 at 07:59; Status DC Sodium Chloride (Normal Saline Flush) 10 ml 1X PRN PRN IV CERTIFIED CYTOTECHNOLOGIST catheter pack; Start 02/15/17 at 08:00; Stop 02/16/17 at 07:59; Status DC Sodium Chloride 1,000 ml @ 400 mls/hr Q2H30M PRN IV PATENCY; Start 02/15/17 at 07:46; Stop 02/15/17 at 19:45; Status DC Info (PHARMACY MONITORING -- do not chart) 1 each PRN DAILY PRN MC SEE COMMENTS ; Start 02/15/17 at 08:00; Status UNV Info (PHARMACY MONITORING -- do not chart) 1 each PRN DAILY PRN MC SEE COMMENTS ; Start 02/15/17 at 08:00; Status UNV Sodium Chloride 1,000 ml @ 60 mls/hr [id number] IV Last administered on 18:39; Start 02/15/17 at 19:00 Active Scripts Active Novolog (Insulin Aspart) 100 Unit/1 Ml Cartridge 25 Unit SQ TID 30 Days Metolazone 2.5 Mg Tablet 2.5 Mg PO DAILY Flomax (Tamsulosin Hcl) 0.4 Mg Cap.er.24h 0.4 Mg PO DAILY Reported Trazodone Hcl 100 Mg Tablet 100 Mg PO HS Glipizide 10 Mg Tablet 1 Tab PO BID Spironolactone 25 Mg Tablet 1 Tab PO DAILY Multi-Day Vitamins (Multivitamin) 1 Each Tablet 1 Tab PO DAILY Vitamin D3 (Cholecalciferol (Vitamin D3)) 1,000 Unit Tablet 1 Tab PO DAILY Aspirin 325 Mg Tablet 1 Tab PO DAILY Bumetanide 2 Mg Tablet 1 Tab PO DAILY Lantus Solostar (Insulin Glargine,Hum.rec.anlog) 100 Unit/1 Ml Insuln.pen 75 Unit SQ QHS Clopidogrel (Clopidogrel Bisulfate) 75 Mg Tablet 1 Tab PO DAILY Vitals/I & O Vital Sign - Last 24 Hours 02/15/17 02/15/17 02/15/17 02/15/17 14:59 16:19 19:05 20:00 Temp 97.6 98.1 97.6 98.1 Pulse 86 64 Resp 24 22 B/P (MAP) 124/42 (69) 98/46 (63) Pulse Ox 94 92 95 O2 Delivery Nasal Cannula Nasal Cannula Nasal Cannula Nasal Cannula O2 Flow Rate 2.0 2.0 2.0 2.0 02/15/17 02/15/17 02/16/17 02/16/17 20:59 23:15 03:20 07:00 Temp 98.0 97.6 98.0 98.0 97.6 98.0 Pulse 77 67 75 Resp 20 19 22 B/P (MAP) 99/50 (66) 98/53 (68) 151/58 (89) Pulse Ox 93 95 94 93 O2 Delivery Nasal Cannula Nasal Cannula Nasal Cannula O2 Flow Rate 2.0 3.0 3.0 02/16/17 02/16/17 02/16/17 02/16/17 08:00 08:18 11:00 11:35 Pulse 82 Resp 20 B/P (MAP) 102/53 (69) Pulse Ox 96 97 99 O2 Delivery Nasal Cannula Nasal Cannula Room Air Nasal Cannula O2 Flow Rate 2.0 2.0 2.0 Intake and Output 02/15/17 02/15/17 02/16/17 14:59 22:59 06:59 Intake Total 925 ml 100 ml Output Total 150 ml 100 ml Balance 775 ml 0 ml MARYJANE SALCIDO III DO Feb 16, 2017 12:24
[2017-02-16 15:00] VITALS: BP 104/50
[2017-02-16 19:40] VITALS: BP 108/56
[2017-02-16] MEDS: traZODone 100 MG TABLET. PO SCH (21:19)
[2017-02-16] MEDS: INSULIN DETEMIR 300 UNITS/3 ML INSULN.PEN. SQ SCH (21:27)
[2017-02-16 23:45] VITALS: BP 119/49
[2017-02-17] MEDS: ALPRAZolam 1 MG TABLET PO PRN ×3 (03:12→21:19)
[2017-02-17 03:20] VITALS: BP 105/51
[2017-02-17] MEDS: IV NORMAL SALINE 1000ML BAG 1,000 ML IV SCH (04:20)
[2017-02-17 05:20] LABS: BASO # 0.1 x10^3/uL (0.0-0.2); BASO % 1 % (0-3); EOS % 7 % (0-3); HEMATOCRIT 29.8 % (39.0-53.0); HEMOGLOBIN 9.8 g/dL (13.0-17.5); LYMPH # 1.2 x10^3/uL (1.0-4.8); LYMPH % 12 % (24-48); MEAN CORPUSCULAR HEMOGLOBIN 28 pg (25-35); MEAN CORPUSCULAR HGB CONC 33 g/dL (31-37); MEAN CORPUSCULAR VOLUME 86 fL (79-100); MONO % 10 % (0-9); NEUT % 71 % (31-73); PLATELET COUNT 359 x10^3/uL (140-400); RED BLOOD COUNT 3.47 x10^6/uL (4.30-5.70); RED CELL DISTRIBUTION WIDTH 15.4 % (11.5-14.5); WHITE BLOOD COUNT 10.5 x10^3/uL (4.0-11.0)
[2017-02-17 06:06] LABS: ALBUMIN 2.6 g/dL (3.4-5.0); CALCIUM 8.9 mg/dL (8.5-10.1); CREATININE 3.3 mg/dL (0.7-1.3); GFR 18.4; POTASSIUM 4.7 mmol/L (3.5-5.1)
[2017-02-17] MEDS: HEPARIN PF for SUB-Q USE 5,000 UNIT/0.5 ML VIAL. SQ SCH ×3 (06:21→21:24)
[2017-02-17 07:00] VITALS: BP 131/55
[2017-02-17] MEDS: glipiZIDE 5 MG TABLET PO SCH ×2 (08:10→17:07)
[2017-02-17] MEDS: TAMSULOSIN 0.4 MG CAP.ER.24H. PO SCH (08:10)
[2017-02-17] MEDS: MULTIVITAMIN with MINERAL TABLET. PO SCH (08:10)
[2017-02-17] MEDS: CLOPIDOGREL BISULFATE 75 MG TABLET PO SCH (08:10)
[2017-02-17] MEDS: ASPIRIN 325 MG TABLET PO SCH (08:10)
[2017-02-17] MEDS: CHOLECALCIFEROL (VITAMIN D3) 1,000 UNIT TABLET PO SCH (08:10)
[2017-02-17] MEDS: INSULIN ASPART 300 UNITS/3 ML INSULN.PEN SQ SCH ×6 (08:12→17:00)
[2017-02-17] MEDS: IPRATRPIUM/ALBUTEROL 0.5/2.5MG 3 ML NEBU. NEB SCH ×4 (08:32→19:44)
[2017-02-17 12:18] VITALS: BP 130/60
[2017-02-17] MEDS: DOCUSATE SODIUM 100 MG CAPSULE. PO PRN (14:11)
[2017-02-17] MEDS ORDERED: POLYETHYLENE GLYCOL 3350 17 GM PACKET. PO PRN (14:45)
--- NOTE | 2017-02-17 14:56 | PDOC ---
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 He has finished 3 days of dialysis. He reports that he didn't sleep well because of feelings of anxiety, has a lousy appetite, and hasn't had a bowel movement for nearly a week. He has a Srivastava in place. . Vitals Vitals Vital Signs Date Time Temp Pulse Resp B/P (MAP) Pulse Ox O2 Delivery O2 Flow Rate FiO2 02/17/17 12:18 130/60 (83) 02/17/17 11:41 95 Nasal Cannula 1.0 02/17/17 11:00 97.9 69 24 97.9 Physical Exam Physical Exam Psych: Increased anxiety, no depression Srivastava catheter in place General: Alert, Cooperative, No acute distress, Other (Asleep) Heart: Regular rate, Normal S1, Normal S2, No murmurs Lungs: Clear, Crackles (lower lobes), Other (no rubs, rhonchi, wheezing) Abdomen: Normal bowel sounds, Soft, No tenderness, Other (Possible distention) Extremities: No cyanosis, Other (3+ pitting edema, clubbing of the fingernails) Skin: No rashes, Other (open lesion on right castellanos) Labs LABS Laboratory Tests Test 02/16/17 15:27 02/16/17 21:00 02/17/17 04:00 02/17/17 07:14 Glucose (Fingerstick) 233 mg/dL (70-99) 285 mg/dL (70-99) 200 mg/dL (70-99) White Blood Count 10.5 x10^3/uL (4.0-11.0) Red Blood Count 3.47 x10^6/uL (4.30-5.70) Hemoglobin 9.8 g/dL (13.0-17.5) Hematocrit 29.8 % (39.0-53.0) Mean Corpuscular Volume 86 fL (79-100) Mean Corpuscular Hemoglobin 28 pg (25-35) Mean Corpuscular Hemoglobin Concent 33 g/dL (31-37) Red Cell Distribution Width 15.4 % (11.5-14.5) Platelet Count 359 x10^3/uL (140-400) Neutrophils (%) (Auto) 71 % (31-73) Lymphocytes (%) (Auto) 12 % (24-48) Monocytes (%) (Auto) 10 % (0-9) Eosinophils (%) (Auto) 7 % (0-3) Basophils (%) (Auto) 1 % (0-3) Neutrophils # (Auto) 7.5 x10^3uL (1.8-7.7) Lymphocytes # (Auto) 1.2 x10^3/uL (1.0-4.8) Monocytes # (Auto) 1.0 x10^3/uL (0.0-1.1) Eosinophils # (Auto) 0.7 x10^3/uL (0.0-0.7) Basophils # (Auto) 0.1 x10^3/uL (0.0-0.2) Sodium Level 131 mmol/L (136-145) Potassium Level 4.7 mmol/L (3.5-5.1) Chloride Level 93 mmol/L (98-107) Carbon Dioxide Level 27 mmol/L (21-32) Anion Gap 11 (6-14) Blood Urea Nitrogen 47 mg/dL (8-26) Creatinine 3.3 mg/dL (0.7-1.3) Estimated GFR (Cockcroft-Gault) 18.4 Glucose Level 205 mg/dL (70-99) Calcium Level 8.9 mg/dL (8.5-10.1) Phosphorus Level 5.0 mg/dL (2.6-4.7) Albumin 2.6 g/dL (3.4-5.0) Test 02/17/17 11:08 Glucose (Fingerstick) 101 mg/dL (70-99) Review of Systems Review of Systems Denies chest pain and shortness of breath Assessment and Plan Assessmemt and Plan Problems Medical Problems: (1) CHF (congestive heart failure) Status: Acute ASSESSMENT: Acute hypoxia Acute on chronic systolic CHF exacerbation COPD DM2 HTN History of CAD with CABG Anxiety 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 Labs Laboratory Tests Test 02/15/17 16:07 02/15/17 19:30 02/16/17 04:15 02/16/17 07:57 Glucose (Fingerstick) 199 mg/dL (70-99) 124 mg/dL (70-99) 55 mg/dL (70-99) White Blood Count 10.2 x10^3/uL (4.0-11.0) Red Blood Count 3.39 x10^6/uL (4.30-5.70) Hemoglobin 9.6 g/dL (13.0-17.5) Hematocrit 29.2 % (39.0-53.0) Mean Corpuscular Volume 86 fL (79-100) Mean Corpuscular Hemoglobin 28 pg (25-35) Mean Corpuscular Hemoglobin Concent 33 g/dL (31-37) Red Cell Distribution Width 15.1 % (11.5-14.5) Platelet Count 332 x10^3/uL (140-400) Neutrophils (%) (Auto) 73 % (31-73) Lymphocytes (%) (Auto) 12 % (24-48) Monocytes (%) (Auto) 10 % (0-9) Eosinophils (%) (Auto) 5 % (0-3) Basophils (%) (Auto) 1 % (0-3) Neutrophils # (Auto) 7.5 x10^3uL (1.8-7.7) Lymphocytes # (Auto) 1.2 x10^3/uL (1.0-4.8) Monocytes # (Auto) 1.0 x10^3/uL (0.0-1.1) Eosinophils # (Auto) 0.5 x10^3/uL (0.0-0.7) Basophils # (Auto) 0.1 x10^3/uL (0.0-0.2) Sodium Level 136 mmol/L (136-145) Potassium Level 3.6 mmol/L (3.5-5.1) Chloride Level 98 mmol/L (98-107) Carbon Dioxide Level 29 mmol/L (21-32) Anion Gap 9 (6-14) Blood Urea Nitrogen 32 mg/dL (8-26) Creatinine 2.7 mg/dL (0.7-1.3) Estimated GFR (Cockcroft-Gault) 23.2 Glucose Level 53 mg/dL (70-99) Calcium Level 8.9 mg/dL (8.5-10.1) Phosphorus Level 4.4 mg/dL (2.6-4.7) Albumin 2.7 g/dL (3.4-5.0) Test 02/16/17 08:53 02/16/17 11:25 02/16/17 15:27 02/16/17 21:00 Glucose (Fingerstick) 78 mg/dL (70-99) 184 mg/dL (70-99) 233 mg/dL (70-99) 285 mg/dL (70-99) Test 02/17/17 04:00 02/17/17 07:14 02/17/17 11:08 White Blood Count 10.5 x10^3/uL (4.0-11.0) Red Blood Count 3.47 x10^6/uL (4.30-5.70) Hemoglobin 9.8 g/dL (13.0-17.5) Hematocrit 29.8 % (39.0-53.0) Mean Corpuscular Volume 86 fL (79-100) Mean Corpuscular Hemoglobin 28 pg (25-35) Mean Corpuscular Hemoglobin Concent 33 g/dL (31-37) Red Cell Distribution Width 15.4 % (11.5-14.5) Platelet Count 359 x10^3/uL (140-400) Neutrophils (%) (Auto) 71 % (31-73) Lymphocytes (%) (Auto) 12 % (24-48) Monocytes (%) (Auto) 10 % (0-9) Eosinophils (%) (Auto) 7 % (0-3) Basophils (%) (Auto) 1 % (0-3) Neutrophils # (Auto) 7.5 x10^3uL (1.8-7.7) Lymphocytes # (Auto) 1.2 x10^3/uL (1.0-4.8) Monocytes # (Auto) 1.0 x10^3/uL (0.0-1.1) Eosinophils # (Auto) 0.7 x10^3/uL (0.0-0.7) Basophils # (Auto) 0.1 x10^3/uL (0.0-0.2) Sodium Level 131 mmol/L (136-145) Potassium Level 4.7 mmol/L (3.5-5.1) Chloride Level 93 mmol/L (98-107) Carbon Dioxide Level 27 mmol/L (21-32) Anion Gap 11 (6-14) Blood Urea Nitrogen 47 mg/dL (8-26) Creatinine 3.3 mg/dL (0.7-1.3) Estimated GFR (Cockcroft-Gault) 18.4 Glucose Level 205 mg/dL (70-99) Calcium Level 8.9 mg/dL (8.5-10.1) Phosphorus Level 5.0 mg/dL (2.6-4.7) Albumin 2.6 g/dL (3.4-5.0) Glucose (Fingerstick) 200 mg/dL (70-99) 101 mg/dL (70-99) Laboratory Tests Test 02/16/17 15:27 02/16/17 21:00 02/17/17 04:00 02/17/17 07:14 Glucose (Fingerstick) 233 mg/dL (70-99) 285 mg/dL (70-99) 200 mg/dL (70-99) White Blood Count 10.5 x10^3/uL (4.0-11.0) Red Blood Count 3.47 x10^6/uL (4.30-5.70) Hemoglobin 9.8 g/dL (13.0-17.5) Hematocrit 29.8 % (39.0-53.0) Mean Corpuscular Volume 86 fL (79-100) Mean Corpuscular Hemoglobin 28 pg (25-35) Mean Corpuscular Hemoglobin Concent 33 g/dL (31-37) Red Cell Distribution Width 15.4 % (11.5-14.5) Platelet Count 359 x10^3/uL (140-400) Neutrophils (%) (Auto) 71 % (31-73) Lymphocytes (%) (Auto) 12 % (24-48) Monocytes (%) (Auto) 10 % (0-9) Eosinophils (%) (Auto) 7 % (0-3) Basophils (%) (Auto) 1 % (0-3) Neutrophils # (Auto) 7.5 x10^3uL (1.8-7.7) Lymphocytes # (Auto) 1.2 x10^3/uL (1.0-4.8) Monocytes # (Auto) 1.0 x10^3/uL (0.0-1.1) Eosinophils # (Auto) 0.7 x10^3/uL (0.0-0.7) Basophils # (Auto) 0.1 x10^3/uL (0.0-0.2) Sodium Level 131 mmol/L (136-145) Potassium Level 4.7 mmol/L (3.5-5.1) Chloride Level 93 mmol/L (98-107) Carbon Dioxide Level 27 mmol/L (21-32) Anion Gap 11 (6-14) Blood Urea Nitrogen 47 mg/dL (8-26) Creatinine 3.3 mg/dL (0.7-1.3) Estimated GFR (Cockcroft-Gault) 18.4 Glucose Level 205 mg/dL (70-99) Calcium Level 8.9 mg/dL (8.5-10.1) Phosphorus Level 5.0 mg/dL (2.6-4.7) Albumin 2.6 g/dL (3.4-5.0) Test 02/17/17 11:08 Glucose (Fingerstick) 101 mg/dL (70-99) Microbiology 02/08/17 Urine Culture - Final, Complete 02/08/17 Urine Culture Result 1 (RIANNA) - Final, Complete Medications Current Medications Albuterol/ Ipratropium (Duoneb) 3 ml 1X ONCE NEB Last administered on 10:25; Start 02/08/17 at 09:30; Stop 02/08/17 at 09:38; Status DC Nitroglycerin (Nitro-Bid Oint) 1 inch 1X ONCE TP Last administered on 09:45; Start 02/08/17 at 09:30; Stop 02/08/17 at 09:38; Status DC Furosemide (Lasix) 40 mg 1X ONCE IVP Last administered on 02/08/17 09:45; Start 02/08/17 at 09:30; Stop 02/08/17 at 09:38; Status DC Ondansetron HCl (Zofran) 4 mg PRN Q8HRS PRN IV NAUSEA/VOMITING; Start at 11:30; Stop 02/09/17 at 11:29; Status DC Furosemide 100 mg/ Sodium Chloride 100 ml @ 0 mls/hr CONT PRN IV PER PROTOCOL Last administered on 02/12/17 08:37; Start 02/08/17 at 11:30; Stop 02/12/17 at 09:53; Status DC Aspirin (Bhavya Aspirin) 325 mg DAILY PO Last administered on 02/17/17 08:10; Start 02/09/17 at 09:00 Vitamin D (Vitamin D3) 1,000 unit DAILY PO Last administered on 02/17/17 08: 10; Start 02/09/17 at 09:00 Clopidogrel Bisulfate (Plavix) 75 mg DAILY PO Last administered on 02/17/17 08:10; Start 02/09/17 at 09:00 Metolazone (Zaroxolyn) 2.5 mg DAILY PO ; Start 02/09/17 at 09:00; Stop at 09:00; Status DC Spironolactone (Aldactone) 25 mg DAILY PO ; Start 02/09/17 at 09:00; Stop at 13:33; Status DC Tamsulosin HCl (Flomax) 0.4 mg DAILY PO Last administered on 02/17/17 08:10; Start 02/09/17 at 09:00 Trazodone HCl (Desyrel) 100 mg HS PO Last administered on 02/16/17 21:19; Start 02/08/17 at 21:00 Non-Formulary Medication 1 tab DAILY PO ; Start 02/09/17 at 09:00; Stop at 09:00; Status DC Glipizide (Glucotrol) 10 mg BIDBFRMEAL PO Last administered on 02/17/17 08:10 ; Start 02/09/17 at 17:00 Insulin Aspart (NovoLOG) 20 units TIDAC SQ Last administered on 02/17/17 08: 12; Start 02/08/17 at 16:30 Insulin Detemir (Levemir) 60 units QHS SQ Last administered on 02/16/17 21:27 ; Start 02/08/17 at 21:00 Multivitamins (Thera M Plus) 1 tab DAILY PO Last administered on 02/17/17 08: 10; Start 02/09/17 at 09:00 Acetaminophen (Tylenol) 650 mg PRN Q6HRS PRN PO FEVER; Start 02/08/17 at 16:30 Ondansetron HCl (Zofran) 4 mg PRN Q6HRS PRN IV NAUSEA/VOMITING; Start at 16:30 Morphine Sulfate 2 mg PRN Q2HR PRN IV PAIN; Start 02/08/17 at 16:30 Tramadol HCl (Ultram) 50 mg PRN Q6HRS PRN PO PAIN Last administered on 21:24; Start 02/08/17 at 16:30 Hydralazine HCl (Apresoline Inj) 10 mg PRN Q4HRS PRN IVP ELEVATED BP, SEE COMMENTS; Start 02/08/17 at 16:30 Docusate Sodium (Colace) 100 mg PRN DAILY PRN PO CONSTIPATION Last administered on 02/17/17 14:11; Start 02/08/17 at 16:30 Insulin Aspart (NovoLOG) 0-9 UNITS TIDWMEALS SQ Last administered on 08:12; Start 02/08/17 at 17:00 Dextrose (Dextrose 50%-Water Syringe) 12.5 gm PRN Q15MIN PRN IV SEE COMMENTS; Start 02/08/17 at 16:30 Albuterol Sulfate (Ventolin Neb Soln) 2.5 mg PRN Q4HRS PRN NEB SHORTNESS OF BREATH Last administered on 02/10/17 04:31; Start 02/08/17 at 16:30 Albuterol/ Ipratropium (Duoneb) 3 ml RTQID NEB Last administered on 02/17/17 11:41; Start 02/08/17 at 17:00 Heparin Sodium (Porcine) (Heparin Sq) 5,000 unit Q8HRS SQ Last administered on 02/17/17 14:20; Start 02/08/17 at 22:00 Alprazolam (Xanax) 0.25 mg PRN BID PRN PO ANXIETY / AGITATION Last administered on 02/08/17 17:52; Start 02/08/17 at 17:15; Stop 02/08/17 at 19 :44; Status DC Ceftriaxone Sodium 50 ml @ 100 mls/hr DAILY IV ; Start 02/09/17 at 09:00; Status UNV Alprazolam (Xanax) 0.5 mg PRN Q6HRS PRN PO ANXIETY / AGITATION Last administered on 02/09/17 08:43; Start 02/08/17 at 19:45; Stop 02/09/17 at 10 :55; Status DC Ceftriaxone Sodium (Rocephin) 1 gm Q24H IVP Last administered on 02/10/17 21: 24; Start 02/08/17 at 20:00; Stop 02/11/17 at 15:00; Status DC Potassium Chloride (Klor-Con) 40 meq 1X ONCE PO Last administered on 08:43; Start 02/09/17 at 08:15; Stop 02/09/17 at 08:16; Status DC Potassium Chloride (Klor-Con) 40 meq 1X ONCE PO Last administered on 12:23; Start 02/09/17 at 12:00; Stop 02/09/17 at 12:01; Status DC Dobutamine HCl/ Dextrose 250 ml @ 0 mls/hr CONT PRN IV SEE I/O RECORD Last administered on 02/11/17 19:43; Start 02/09/17 at 08:15; Stop 02/12/17 at 09 :53; Status DC Alprazolam (Xanax) 0.25 mg PRN Q6HRS PRN PO ANXIETY / AGITATION Last administered on 02/12/17 09:30; Start 02/09/17 at 11:00; Stop 02/12/17 at 13 :09; Status DC Potassium Chloride (Klor-Con) 40 meq PRN Q4HRS PRN PO for K < 4.0 Last administered on 02/09/17 22:13; Start 02/09/17 at 11:15 Albumin Human 100 ml @ 100 mls/hr 1X ONCE IV Last administered on 02/10/17 12:00; Start 02/10/17 at 12:00; Stop 02/10/17 at 12:59; Status DC Albumin Human 100 ml @ 100 mls/hr 1X ONCE IV Last administered on 02/10/17 21:23; Start 02/10/17 at 20:00; Stop 02/10/17 at 20:59; Status DC Magnesium Sulfate/ Dextrose 50 ml @ 25 mls/hr PRN DAILY PRN IV for Mag < 1.7 on am labs; Start 02/11/17 at 11:30 Cefpodoxime Proxetil (Vantin) 100 mg BID PO Last administered on 02/14/17 08: 24; Start 02/11/17 at 21:00; Stop 02/14/17 at 11:12; Status DC Heparin Sodium/ Sodium Chloride 1,000 unit 1X ONCE IART Last administered on 02/12/17 13:18; Start 02/12/17 at 13:00; Stop 02/12/17 at 13:05; Status DC Midazolam HCl (Versed) 2 mg 1X ONCE IV Last administered on 02/12/17 13:20; Start 02/12/17 at 13:00; Stop 02/12/17 at 13:05; Status DC Fentanyl Citrate (Fentanyl 2ml Vial) 100 mcg 1X ONCE IV Last administered on 02/12/17 13:20; Start 02/12/17 at 13:00; Stop 02/12/17 at 13:05; Status DC Lidocaine/ Epinephrine (Xylocaine 1%-Epi 1:100,000) 20 ml 1X ONCE IJ Last administered on 02/12/17 13:21; Start 02/12/17 at 13:00; Stop 02/12/17 at 13 :05; Status DC Heparin Sodium (Porcine) (Heparin Sodium) 3,800 unit 1X ONCE INT CAT Last administered on 02/12/17 13:20; Start 02/12/17 at 13:00; Stop 02/12/17 at 13 :05; Status DC Cefazolin Sodium/ Dextrose 50 ml @ 100 mls/hr 1X ONCE IV Last administered on 02/12/17 13:21; Start 02/12/17 at 13:00; Stop 02/12/17 at 13:29; Status DC Alprazolam (Xanax) 1 mg PRN Q6HRS PRN PO ANXIETY / AGITATION Last administered on 02/17/17 14:11; Start 02/12/17 at 13:15 Sodium Chloride 1,000 ml @ 1,000 mls/hr Q1H PRN IV hypotension; Start at 18:54; Stop 02/13/17 at 00:53; Status DC Sodium Chloride 1,000 ml @ 400 mls/hr Q2H30M PRN IV PATENCY; Start 02/12/17 at 18:54; Stop 02/13/17 at 06:53; Status DC Info (PHARMACY MONITORING -- do not chart) 1 each PRN DAILY PRN MC SEE COMMENTS ; Start 02/12/17 at 19:00; Stop 02/14/17 at 11:07; Status DC Sodium Chloride 1,000 ml @ 1,000 mls/hr Q1H PRN IV hypotension; Start at 13:21; Stop 02/13/17 at 19:20; Status DC Info (PHARMACY MONITORING -- do not chart) 1 each PRN DAILY PRN MC SEE COMMENTS ; Start 02/13/17 at 13:30 Cefpodoxime Proxetil (Vantin) 100 mg QHS PO Last administered on 02/15/17 20: 47; Start 02/14/17 at 21:00; Stop 02/16/17 at 14:02; Status DC Sodium Chloride 1,000 ml @ 1,000 mls/hr Q1H PRN IV hypotension; Start at 07:46; Stop 02/15/17 at 13:45; Status DC Sodium Chloride (Normal Saline Flush) 10 ml 1X PRN PRN IV AP catheter pack; Start 02/15/17 at 08:00; Stop 02/16/17 at 07:59; Status DC Sodium Chloride (Normal Saline Flush) 10 ml 1X PRN PRN IV CAGE/VAULT SUPERVISOR catheter pack; Start 02/15/17 at 08:00; Stop 02/16/17 at 07:59; Status DC Sodium Chloride 1,000 ml @ 400 mls/hr Q2H30M PRN IV PATENCY; Start 02/15/17 at 07:46; Stop 02/15/17 at 19:45; Status DC Info (PHARMACY MONITORING -- do not chart) 1 each PRN DAILY PRN MC SEE COMMENTS ; Start 02/15/17 at 08:00; Status UNV Info (PHARMACY MONITORING -- do not chart) 1 each PRN DAILY PRN MC SEE COMMENTS ; Start 02/15/17 at 08:00; Status UNV Sodium Chloride 1,000 ml @ 60 mls/hr [id number] IV Last administered on t 18:39; Start 02/15/17 at 19:00 Active Scripts Active Novolog (Insulin Aspart) 100 Unit/1 Ml Cartridge 25 Unit SQ TID 30 Days Metolazone 2.5 Mg Tablet 2.5 Mg PO DAILY Flomax (Tamsulosin Hcl) 0.4 Mg Cap.er.24h 0.4 Mg PO DAILY Reported Trazodone Hcl 100 Mg Tablet 100 Mg PO HS Glipizide 10 Mg Tablet 1 Tab PO BID Spironolactone 25 Mg Tablet 1 Tab PO DAILY Multi-Day Vitamins (Multivitamin) 1 Each Tablet 1 Tab PO DAILY Vitamin D3 (Cholecalciferol (Vitamin D3)) 1,000 Unit Tablet 1 Tab PO DAILY Aspirin 325 Mg Tablet 1 Tab PO DAILY Bumetanide 2 Mg Tablet 1 Tab PO DAILY Lantus Solostar (Insulin Glargine,Hum.rec.anlog) 100 Unit/1 Ml Insuln.pen 75 Unit SQ QHS Clopidogrel (Clopidogrel Bisulfate) 75 Mg Tablet 1 Tab PO DAILY Vitals/I & O Vital Sign - Last 24 Hours 02/16/17 02/16/17 02/16/17 02/16/17 15:00 15:42 17:42 19:40 Temp 97.3 98.0 97.3 98.0 Pulse 93 84 Resp 20 24 B/P (MAP) 104/50 (68) 108/56 (73) Pulse Ox 92 95 93 91 O2 Delivery Nasal Cannula Nasal Cannula Nasal Cannula O2 Flow Rate 2.0 1.0 1.0 02/16/17 02/16/17 02/17/17 02/17/17 20:00 23:45 03:20 07:00 Temp 98.0 97.7 97.7 98.0 97.7 97.7 Pulse 83 81 94 Resp 22 22 18 B/P (MAP) 119/49 (72) 105/51 (69) 131/55 (80) Pulse Ox 94 93 94 O2 Delivery Nasal Cannula Nasal Cannula Nasal Cannula Nasal Cannula O2 Flow Rate 2.0 1.0 1.0 2.0 02/17/17 02/17/17 02/17/17 02/17/17 08:00 08:34 11:00 11:41 Temp 97.9 97.9 Pulse 69 Resp 24 B/P (MAP) Pulse Ox 95 92 95 O2 Delivery Nasal Cannula Nasal Cannula Nasal Cannula Nasal Cannula O2 Flow Rate 2.0 1.0 1.5 1.0 02/17/17 12:18 B/P (MAP) 130/60 (83) Intake and Output 02/16/17 02/16/17 02/17/17 14:59 22:59 06:59 Intake Total 1000 ml 700 ml 260 ml Output Total 150 ml 150 ml Balance 1000 ml 550 ml 110 ml MARYJANE SALCIDO III DO Feb 17, 2017 14:56
--- NOTE | 2017-02-17 15:15 | PDOC ---
PROGRESS NOTES Subjective Subjective The patient is a little upset following a family discussion. No significant dyspnea or chest pains at this time. Objective Objective Vital Signs Date Time Temp Pulse Resp B/P (MAP) Pulse Ox O2 Delivery O2 Flow Rate FiO2 02/17/17 12:18 130/60 (83) 02/17/17 11:41 95 Nasal Cannula 1.0 02/17/17 11:00 97.9 69 24 97.9 Intake and Output 02/18/17 07:00 Intake Total 120 ml Balance 120 ml Intake Oral 120 ml Physical Exam Physical Exam Neck 1 cm JVD. Lungs some basal rales, no wheezing, moving air better. Heart no changes. Extremities no changes in edema. Assessment Assessment The patient's CHF is unchanged. He needs to have dialysis tomorrow. Social service needs to make arrangements for him to go to rehabilitation for a period of time. Problems Medical Problems: (1) CHF (congestive heart failure) Status: Acute Comment Review of Relevant I have reviewed the following items sukumar (where applicable) has been applied. Labs Laboratory Tests Test 02/15/17 16:07 02/15/17 19:30 02/16/17 04:15 02/16/17 07:57 Glucose (Fingerstick) 199 mg/dL (70-99) 124 mg/dL (70-99) 55 mg/dL (70-99) White Blood Count 10.2 x10^3/uL (4.0-11.0) Red Blood Count 3.39 x10^6/uL (4.30-5.70) Hemoglobin 9.6 g/dL (13.0-17.5) Hematocrit 29.2 % (39.0-53.0) Mean Corpuscular Volume 86 fL (79-100) Mean Corpuscular Hemoglobin 28 pg (25-35) Mean Corpuscular Hemoglobin Concent 33 g/dL (31-37) Red Cell Distribution Width 15.1 % (11.5-14.5) Platelet Count 332 x10^3/uL (140-400) Neutrophils (%) (Auto) 73 % (31-73) Lymphocytes (%) (Auto) 12 % (24-48) Monocytes (%) (Auto) 10 % (0-9) Eosinophils (%) (Auto) 5 % (0-3) Basophils (%) (Auto) 1 % (0-3) Neutrophils # (Auto) 7.5 x10^3uL (1.8-7.7) Lymphocytes # (Auto) 1.2 x10^3/uL (1.0-4.8) Monocytes # (Auto) 1.0 x10^3/uL (0.0-1.1) Eosinophils # (Auto) 0.5 x10^3/uL (0.0-0.7) Basophils # (Auto) 0.1 x10^3/uL (0.0-0.2) Sodium Level 136 mmol/L (136-145) Potassium Level 3.6 mmol/L (3.5-5.1) Chloride Level 98 mmol/L (98-107) Carbon Dioxide Level 29 mmol/L (21-32) Anion Gap 9 (6-14) Blood Urea Nitrogen 32 mg/dL (8-26) Creatinine 2.7 mg/dL (0.7-1.3) Estimated GFR (Cockcroft-Gault) 23.2 Glucose Level 53 mg/dL (70-99) Calcium Level 8.9 mg/dL (8.5-10.1) Phosphorus Level 4.4 mg/dL (2.6-4.7) Albumin 2.7 g/dL (3.4-5.0) Test 02/16/17 08:53 02/16/17 11:25 02/16/17 15:27 02/16/17 21:00 Glucose (Fingerstick) 78 mg/dL (70-99) 184 mg/dL (70-99) 233 mg/dL (70-99) 285 mg/dL (70-99) Test 02/17/17 04:00 02/17/17 07:14 02/17/17 11:08 White Blood Count 10.5 x10^3/uL (4.0-11.0) Red Blood Count 3.47 x10^6/uL (4.30-5.70) Hemoglobin 9.8 g/dL (13.0-17.5) Hematocrit 29.8 % (39.0-53.0) Mean Corpuscular Volume 86 fL (79-100) Mean Corpuscular Hemoglobin 28 pg (25-35) Mean Corpuscular Hemoglobin Concent 33 g/dL (31-37) Red Cell Distribution Width 15.4 % (11.5-14.5) Platelet Count 359 x10^3/uL (140-400) Neutrophils (%) (Auto) 71 % (31-73) Lymphocytes (%) (Auto) 12 % (24-48) Monocytes (%) (Auto) 10 % (0-9) Eosinophils (%) (Auto) 7 % (0-3) Basophils (%) (Auto) 1 % (0-3) Neutrophils # (Auto) 7.5 x10^3uL (1.8-7.7) Lymphocytes # (Auto) 1.2 x10^3/uL (1.0-4.8) Monocytes # (Auto) 1.0 x10^3/uL (0.0-1.1) Eosinophils # (Auto) 0.7 x10^3/uL (0.0-0.7) Basophils # (Auto) 0.1 x10^3/uL (0.0-0.2) Sodium Level 131 mmol/L (136-145) Potassium Level 4.7 mmol/L (3.5-5.1) Chloride Level 93 mmol/L (98-107) Carbon Dioxide Level 27 mmol/L (21-32) Anion Gap 11 (6-14) Blood Urea Nitrogen 47 mg/dL (8-26) Creatinine 3.3 mg/dL (0.7-1.3) Estimated GFR (Cockcroft-Gault) 18.4 Glucose Level 205 mg/dL (70-99) Calcium Level 8.9 mg/dL (8.5-10.1) Phosphorus Level 5.0 mg/dL (2.6-4.7) Albumin 2.6 g/dL (3.4-5.0) Glucose (Fingerstick) 200 mg/dL (70-99) 101 mg/dL (70-99) Laboratory Tests Test 02/16/17 15:27 02/16/17 21:00 02/17/17 04:00 02/17/17 07:14 Glucose (Fingerstick) 233 mg/dL (70-99) 285 mg/dL (70-99) 200 mg/dL (70-99) White Blood Count 10.5 x10^3/uL (4.0-11.0) Red Blood Count 3.47 x10^6/uL (4.30-5.70) Hemoglobin 9.8 g/dL (13.0-17.5) Hematocrit 29.8 % (39.0-53.0) Mean Corpuscular Volume 86 fL (79-100) Mean Corpuscular Hemoglobin 28 pg (25-35) Mean Corpuscular Hemoglobin Concent 33 g/dL (31-37) Red Cell Distribution Width 15.4 % (11.5-14.5) Platelet Count 359 x10^3/uL (140-400) Neutrophils (%) (Auto) 71 % (31-73) Lymphocytes (%) (Auto) 12 % (24-48) Monocytes (%) (Auto) 10 % (0-9) Eosinophils (%) (Auto) 7 % (0-3) Basophils (%) (Auto) 1 % (0-3) Neutrophils # (Auto) 7.5 x10^3uL (1.8-7.7) Lymphocytes # (Auto) 1.2 x10^3/uL (1.0-4.8) Monocytes # (Auto) 1.0 x10^3/uL (0.0-1.1) Eosinophils # (Auto) 0.7 x10^3/uL (0.0-0.7) Basophils # (Auto) 0.1 x10^3/uL (0.0-0.2) Sodium Level 131 mmol/L (136-145) Potassium Level 4.7 mmol/L (3.5-5.1) Chloride Level 93 mmol/L (98-107) Carbon Dioxide Level 27 mmol/L (21-32) Anion Gap 11 (6-14) Blood Urea Nitrogen 47 mg/dL (8-26) Creatinine 3.3 mg/dL (0.7-1.3) Estimated GFR (Cockcroft-Gault) 18.4 Glucose Level 205 mg/dL (70-99) Calcium Level 8.9 mg/dL (8.5-10.1) Phosphorus Level 5.0 mg/dL (2.6-4.7) Albumin 2.6 g/dL (3.4-5.0) Test 02/17/17 11:08 Glucose (Fingerstick) 101 mg/dL (70-99) Microbiology 02/08/17 Urine Culture - Final, Complete 02/08/17 Urine Culture Result 1 (RIANNA) - Final, Complete Medications Current Medications Albuterol/ Ipratropium (Duoneb) 3 ml 1X ONCE NEB Last administered on 10:25; Start 02/08/17 at 09:30; Stop 02/08/17 at 09:38; Status DC Nitroglycerin (Nitro-Bid Oint) 1 inch 1X ONCE TP Last administered on 09:45; Start 02/08/17 at 09:30; Stop 02/08/17 at 09:38; Status DC Furosemide (Lasix) 40 mg 1X ONCE IVP Last administered on 02/08/17 09:45; Start 02/08/17 at 09:30; Stop 02/08/17 at 09:38; Status DC Ondansetron HCl (Zofran) 4 mg PRN Q8HRS PRN IV NAUSEA/VOMITING; Start at 11:30; Stop 02/09/17 at 11:29; Status DC Furosemide 100 mg/ Sodium Chloride 100 ml @ 0 mls/hr CONT PRN IV PER PROTOCOL Last administered on 02/12/17 08:37; Start 02/08/17 at 11:30; Stop 02/12/17 at 09:53; Status DC Aspirin (Bhavya Aspirin) 325 mg DAILY PO Last administered on 02/17/17 08:10; Start 02/09/17 at 09:00 Vitamin D (Vitamin D3) 1,000 unit DAILY PO Last administered on 02/17/17 08: 10; Start 02/09/17 at 09:00 Clopidogrel Bisulfate (Plavix) 75 mg DAILY PO Last administered on 02/17/17 08:10; Start 02/09/17 at 09:00 Metolazone (Zaroxolyn) 2.5 mg DAILY PO ; Start 02/09/17 at 09:00; Stop at 09:00; Status DC Spironolactone (Aldactone) 25 mg DAILY PO ; Start 02/09/17 at 09:00; Stop at 13:33; Status DC Tamsulosin HCl (Flomax) 0.4 mg DAILY PO Last administered on 02/17/17 08:10; Start 02/09/17 at 09:00 Trazodone HCl (Desyrel) 100 mg HS PO Last administered on 02/16/17 21:19; Start 02/08/17 at 21:00 Non-Formulary Medication 1 tab DAILY PO ; Start 02/09/17 at 09:00; Stop at 09:00; Status DC Glipizide (Glucotrol) 10 mg BIDBFRMEAL PO Last administered on 02/17/17 08:10 ; Start 02/09/17 at 17:00 Insulin Aspart (NovoLOG) 20 units TIDAC SQ Last administered on 02/17/17 08: 12; Start 02/08/17 at 16:30 Insulin Detemir (Levemir) 60 units QHS SQ Last administered on 02/16/17 21:27 ; Start 02/08/17 at 21:00 Multivitamins (Thera M Plus) 1 tab DAILY PO Last administered on 02/17/17 08: 10; Start 02/09/17 at 09:00 Acetaminophen (Tylenol) 650 mg PRN Q6HRS PRN PO FEVER; Start 02/08/17 at 16:30 Ondansetron HCl (Zofran) 4 mg PRN Q6HRS PRN IV NAUSEA/VOMITING; Start at 16:30 Morphine Sulfate 2 mg PRN Q2HR PRN IV PAIN; Start 02/08/17 at 16:30 Tramadol HCl (Ultram) 50 mg PRN Q6HRS PRN PO PAIN Last administered on 21:24; Start 02/08/17 at 16:30 Hydralazine HCl (Apresoline Inj) 10 mg PRN Q4HRS PRN IVP ELEVATED BP, SEE COMMENTS; Start 02/08/17 at 16:30 Docusate Sodium (Colace) 100 mg PRN DAILY PRN PO CONSTIPATION Last administered on 02/17/17 14:11; Start 02/08/17 at 16:30 Insulin Aspart (NovoLOG) 0-9 UNITS TIDWMEALS SQ Last administered on 08:12; Start 02/08/17 at 17:00 Dextrose (Dextrose 50%-Water Syringe) 12.5 gm PRN Q15MIN PRN IV SEE COMMENTS; Start 02/08/17 at 16:30 Albuterol Sulfate (Ventolin Neb Soln) 2.5 mg PRN Q4HRS PRN NEB SHORTNESS OF BREATH Last administered on 02/10/17 04:31; Start 02/08/17 at 16:30 Albuterol/ Ipratropium (Duoneb) 3 ml RTQID NEB Last administered on 02/17/17 11:41; Start 02/08/17 at 17:00 Heparin Sodium (Porcine) (Heparin Sq) 5,000 unit Q8HRS SQ Last administered on 02/17/17 14:20; Start 02/08/17 at 22:00 Alprazolam (Xanax) 0.25 mg PRN BID PRN PO ANXIETY / AGITATION Last administered on 02/08/17 17:52; Start 02/08/17 at 17:15; Stop 02/08/17 at 19 :44; Status DC Ceftriaxone Sodium 50 ml @ 100 mls/hr DAILY IV ; Start 02/09/17 at 09:00; Status UNV Alprazolam (Xanax) 0.5 mg PRN Q6HRS PRN PO ANXIETY / AGITATION Last administered on 02/09/17 08:43; Start 02/08/17 at 19:45; Stop 02/09/17 at 10 :55; Status DC Ceftriaxone Sodium (Rocephin) 1 gm Q24H IVP Last administered on 02/10/17 21: 24; Start 02/08/17 at 20:00; Stop 02/11/17 at 15:00; Status DC Potassium Chloride (Klor-Con) 40 meq 1X ONCE PO Last administered on 08:43; Start 02/09/17 at 08:15; Stop 02/09/17 at 08:16; Status DC Potassium Chloride (Klor-Con) 40 meq 1X ONCE PO Last administered on 12:23; Start 02/09/17 at 12:00; Stop 02/09/17 at 12:01; Status DC Dobutamine HCl/ Dextrose 250 ml @ 0 mls/hr CONT PRN IV SEE I/O RECORD Last administered on 02/11/17 19:43; Start 02/09/17 at 08:15; Stop 02/12/17 at 09 :53; Status DC Alprazolam (Xanax) 0.25 mg PRN Q6HRS PRN PO ANXIETY / AGITATION Last administered on 02/12/17 09:30; Start 02/09/17 at 11:00; Stop 02/12/17 at 13 :09; Status DC Potassium Chloride (Klor-Con) 40 meq PRN Q4HRS PRN PO for K < 4.0 Last administered on 02/09/17 22:13; Start 02/09/17 at 11:15 Albumin Human 100 ml @ 100 mls/hr 1X ONCE IV Last administered on 02/10/17 12:00; Start 02/10/17 at 12:00; Stop 02/10/17 at 12:59; Status DC Albumin Human 100 ml @ 100 mls/hr 1X ONCE IV Last administered on 02/10/17 21:23; Start 02/10/17 at 20:00; Stop 02/10/17 at 20:59; Status DC Magnesium Sulfate/ Dextrose 50 ml @ 25 mls/hr PRN DAILY PRN IV for Mag < 1.7 on am labs; Start 02/11/17 at 11:30 Cefpodoxime Proxetil (Vantin) 100 mg BID PO Last administered on 02/14/17 08: 24; Start 02/11/17 at 21:00; Stop 02/14/17 at 11:12; Status DC Heparin Sodium/ Sodium Chloride 1,000 unit 1X ONCE IART Last administered on 02/12/17 13:18; Start 02/12/17 at 13:00; Stop 02/12/17 at 13:05; Status DC Midazolam HCl (Versed) 2 mg 1X ONCE IV Last administered on 02/12/17 13:20; Start 02/12/17 at 13:00; Stop 02/12/17 at 13:05; Status DC Fentanyl Citrate (Fentanyl 2ml Vial) 100 mcg 1X ONCE IV Last administered on 02/12/17 13:20; Start 02/12/17 at 13:00; Stop 02/12/17 at 13:05; Status DC Lidocaine/ Epinephrine (Xylocaine 1%-Epi 1:100,000) 20 ml 1X ONCE IJ Last administered on 02/12/17 13:21; Start 02/12/17 at 13:00; Stop 02/12/17 at 13 :05; Status DC Heparin Sodium (Porcine) (Heparin Sodium) 3,800 unit 1X ONCE INT CAT Last administered on 02/12/17 13:20; Start 02/12/17 at 13:00; Stop 02/12/17 at 13 :05; Status DC Cefazolin Sodium/ Dextrose 50 ml @ 100 mls/hr 1X ONCE IV Last administered on 02/12/17 13:21; Start 02/12/17 at 13:00; Stop 02/12/17 at 13:29; Status DC Alprazolam (Xanax) 1 mg PRN Q6HRS PRN PO ANXIETY / AGITATION Last administered on 02/17/17 14:11; Start 02/12/17 at 13:15 Sodium Chloride 1,000 ml @ 1,000 mls/hr Q1H PRN IV hypotension; Start at 18:54; Stop 02/13/17 at 00:53; Status DC Sodium Chloride 1,000 ml @ 400 mls/hr Q2H30M PRN IV PATENCY; Start 02/12/17 at 18:54; Stop 02/13/17 at 06:53; Status DC Info (PHARMACY MONITORING -- do not chart) 1 each PRN DAILY PRN MC SEE COMMENTS ; Start 02/12/17 at 19:00; Stop 02/14/17 at 11:07; Status DC Sodium Chloride 1,000 ml @ 1,000 mls/hr Q1H PRN IV hypotension; Start at 13:21; Stop 02/13/17 at 19:20; Status DC Info (PHARMACY MONITORING -- do not chart) 1 each PRN DAILY PRN MC SEE COMMENTS ; Start 02/13/17 at 13:30 Cefpodoxime Proxetil (Vantin) 100 mg QHS PO Last administered on 02/15/17 20: 47; Start 02/14/17 at 21:00; Stop 02/16/17 at 14:02; Status DC Sodium Chloride 1,000 ml @ 1,000 mls/hr Q1H PRN IV hypotension; Start at 07:46; Stop 02/15/17 at 13:45; Status DC Sodium Chloride (Normal Saline Flush) 10 ml 1X PRN PRN IV AP catheter pack; Start 02/15/17 at 08:00; Stop 02/16/17 at 07:59; Status DC Sodium Chloride (Normal Saline Flush) 10 ml 1X PRN PRN IV VULNERABILITY ASSESSMENT ANALYST catheter pack; Start 02/15/17 at 08:00; Stop 02/16/17 at 07:59; Status DC Sodium Chloride 1,000 ml @ 400 mls/hr Q2H30M PRN IV PATENCY; Start 02/15/17 at 07:46; Stop 02/15/17 at 19:45; Status DC Info (PHARMACY MONITORING -- do not chart) 1 each PRN DAILY PRN MC SEE COMMENTS ; Start 02/15/17 at 08:00; Status UNV Info (PHARMACY MONITORING -- do not chart) 1 each PRN DAILY PRN MC SEE COMMENTS ; Start 02/15/17 at 08:00; Status UNV Sodium Chloride 1,000 ml @ 60 mls/hr [id number] IV Last administered on t 18:39; Start 02/15/17 at 19:00 Polyethylene Glycol (miraLAX PACKET) 17 gm PRN DAILY PRN PO CONSTIPATION; Start 02/17/17 at 14:45 Active Scripts Active Novolog (Insulin Aspart) 100 Unit/1 Ml Cartridge 25 Unit SQ TID 30 Days Metolazone 2.5 Mg Tablet 2.5 Mg PO DAILY Flomax (Tamsulosin Hcl) 0.4 Mg Cap.er.24h 0.4 Mg PO DAILY Reported Trazodone Hcl 100 Mg Tablet 100 Mg PO HS Glipizide 10 Mg Tablet 1 Tab PO BID Spironolactone 25 Mg Tablet 1 Tab PO DAILY Multi-Day Vitamins (Multivitamin) 1 Each Tablet 1 Tab PO DAILY Vitamin D3 (Cholecalciferol (Vitamin D3)) 1,000 Unit Tablet 1 Tab PO DAILY Aspirin 325 Mg Tablet 1 Tab PO DAILY Bumetanide 2 Mg Tablet 1 Tab PO DAILY Lantus Solostar (Insulin Glargine,Hum.rec.anlog) 100 Unit/1 Ml Insuln.pen 75 Unit SQ QHS Clopidogrel (Clopidogrel Bisulfate) 75 Mg Tablet 1 Tab PO DAILY Vitals/I & O Vital Sign - Last 24 Hours 02/16/17 02/16/17 02/16/17 02/16/17 15:42 17:42 19:40 20:00 Temp 98.0 98.0 Pulse 84 Resp 24 B/P (MAP) 108/56 (73) Pulse Ox 95 93 91 O2 Delivery Nasal Cannula Nasal Cannula Nasal Cannula Nasal Cannula O2 Flow Rate 2.0 1.0 1.0 2.0 02/16/17 02/17/17 02/17/17 02/17/17 23:45 03:20 07:00 08:00 Temp 98.0 97.7 97.7 98.0 97.7 97.7 Pulse 83 81 94 Resp 22 22 18 B/P (MAP) 119/49 (72) 105/51 (69) 131/55 (80) Pulse Ox 94 93 94 O2 Delivery Nasal Cannula Nasal Cannula Nasal Cannula Nasal Cannula O2 Flow Rate 1.0 1.0 2.0 2.0 02/17/17 02/17/17 02/17/17 02/17/17 08:34 11:00 11:41 12:18 Temp 97.9 97.9 Pulse 69 Resp 24 B/P (MAP) 130/60 (83) Pulse Ox 95 92 95 O2 Delivery Nasal Cannula Nasal Cannula Nasal Cannula O2 Flow Rate 1.0 1.5 1.0 Intake and Output 02/17/17 02/17/17 02/18/17 15:00 23:00 07:00 Intake Total 120 ml Balance 120 ml OKSANA JOSEPH MD Feb 17, 2017 15:15
[2017-02-17 19:00] VITALS: BP 111/77
[2017-02-17] MEDS: traZODone 100 MG TABLET. PO SCH (21:19)
[2017-02-17] MEDS: INSULIN DETEMIR 300 UNITS/3 ML INSULN.PEN. SQ SCH (21:25)
[2017-02-17 22:46] VITALS: BP 115/67
[2017-02-18] MEDS: ALPRAZolam 1 MG TABLET PO PRN ×3 (03:47→16:11)
[2017-02-18 04:11] LABS: BASO # 0.1 x10^3/uL (0.0-0.2); BASO % 1 % (0-3); EOS % 10 % (0-3); HEMATOCRIT 29.1 % (39.0-53.0); HEMOGLOBIN 9.7 g/dL (13.0-17.5); LYMPH # 1.1 x10^3/uL (1.0-4.8); LYMPH % 12 % (24-48); MEAN CORPUSCULAR HEMOGLOBIN 29 pg (25-35); MEAN CORPUSCULAR HGB CONC 33 g/dL (31-37); MEAN CORPUSCULAR VOLUME 86 fL (79-100); MONO % 12 % (0-9); NEUT % 66 % (31-73); PLATELET COUNT 385 x10^3/uL (140-400); RED BLOOD COUNT 3.39 x10^6/uL (4.30-5.70); RED CELL DISTRIBUTION WIDTH 15.7 % (11.5-14.5); WHITE BLOOD COUNT 9.4 x10^3/uL (4.0-11.0)
[2017-02-18 04:45] LABS: ALBUMIN 2.7 g/dL (3.4-5.0); CALCIUM 9.4 mg/dL (8.5-10.1); CREATININE 3.5 mg/dL (0.7-1.3); GFR 17.2; PHOSPHORUS 5.5 mg/dL (2.6-4.7); POTASSIUM 4.4 mmol/L (3.5-5.1)
[2017-02-18] MEDS: HEPARIN PF for SUB-Q USE 5,000 UNIT/0.5 ML VIAL. SQ SCH ×3 (06:03→21:18)
[2017-02-18 07:00] VITALS: BP 107/46
[2017-02-18] MEDS: IPRATRPIUM/ALBUTEROL 0.5/2.5MG 3 ML NEBU. NEB SCH ×4 (07:33→19:33)
[2017-02-18] MEDS: INSULIN ASPART 300 UNITS/3 ML INSULN.PEN SQ SCH ×6 (08:00→17:00)
[2017-02-18] MEDS ORDERED: IV NORMAL SALINE 1000ML BAG 1,000 ML IV PRN ×2 (08:50)
[2017-02-18] MEDS: CLOPIDOGREL BISULFATE 75 MG TABLET PO SCH (08:50)
[2017-02-18] MEDS: MULTIVITAMIN with MINERAL TABLET. PO SCH (08:50)
[2017-02-18] MEDS: ASPIRIN 325 MG TABLET PO SCH (08:50)
[2017-02-18] MEDS: CHOLECALCIFEROL (VITAMIN D3) 1,000 UNIT TABLET PO SCH (08:50)
[2017-02-18] MEDS: TAMSULOSIN 0.4 MG CAP.ER.24H. PO SCH (08:50)
[2017-02-18] MEDS: glipiZIDE 5 MG TABLET PO SCH ×2 (08:50→16:11)
[2017-02-18] MEDS ORDERED: diphenhydrAMINE 50 MG/ML VIAL IV PRN ×2 (09:00)
[2017-02-18] MEDS ORDERED: DIALYSIS PATIENT. MC PRN ×2 (09:00)
[2017-02-18] MEDS ORDERED: ACETAMINOPHEN 500 MG TABLET PO PRN (09:00)
--- NOTE | 2017-02-18 09:34 | PDOC ---
PROGRESS NOTES Subjective Subjective Patient sitting up in chair eating breakfast this AM. Slightly agitated about care and not going to dialysis on time this morning. Patient is still short of breath, but this has not worsened since yesterday. Denies any chest pain or cardiac complaints. He is very eager to leave the hospital and go to the SNU because he is "sick of the food" at the hospital. No additional concerns at this time. Objective Objective Vital Signs Date Time Temp Pulse Resp B/P (MAP) Pulse Ox O2 Delivery O2 Flow Rate FiO2 02/18/17 07:33 92 Nasal Cannula 2.0 02/17/17 22:46 97.5 79 18 115/67 (83) 97.5 Intake and Output 02/18/17 07:00 Intake Total 520 ml Output Total 200 ml Balance 320 ml Intake Oral 520 ml Output Urine Total 200 ml Physical Exam COMMENT Neck 1 cm JVD. Awake, alert, oriented In No Acute Distress Lungs some basal rales b/l, no wheezing No changes in cardiac exam Extremities no changes in edema. +2-3 pitting edema in LE b/l. Non-tender to palpation of LE b/l Assessment Assessment Problems Medical Problems: (1) CHF (congestive heart failure) Status: Acute Plan Plan of Care CHF- The patient's CHF remains unchanged. Is scheduled to undergo dialysis this AM. Will reevaluate CHF s/p dialysis. 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 Plan to transfer to SNU as soon as arrangements are made. Comment Review of Relevant I have reviewed the following items sukumar (where applicable) has been applied. Labs Laboratory Tests Test 02/16/17 11:25 02/16/17 15:27 02/16/17 21:00 02/17/17 04:00 Glucose (Fingerstick) 184 mg/dL (70-99) 233 mg/dL (70-99) 285 mg/dL (70-99) White Blood Count 10.5 x10^3/uL (4.0-11.0) Red Blood Count 3.47 x10^6/uL (4.30-5.70) Hemoglobin 9.8 g/dL (13.0-17.5) Hematocrit 29.8 % (39.0-53.0) Mean Corpuscular Volume 86 fL (79-100) Mean Corpuscular Hemoglobin 28 pg (25-35) Mean Corpuscular Hemoglobin Concent 33 g/dL (31-37) Red Cell Distribution Width 15.4 % (11.5-14.5) Platelet Count 359 x10^3/uL (140-400) Neutrophils (%) (Auto) 71 % (31-73) Lymphocytes (%) (Auto) 12 % (24-48) Monocytes (%) (Auto) 10 % (0-9) Eosinophils (%) (Auto) 7 % (0-3) Basophils (%) (Auto) 1 % (0-3) Neutrophils # (Auto) 7.5 x10^3uL (1.8-7.7) Lymphocytes # (Auto) 1.2 x10^3/uL (1.0-4.8) Monocytes # (Auto) 1.0 x10^3/uL (0.0-1.1) Eosinophils # (Auto) 0.7 x10^3/uL (0.0-0.7) Basophils # (Auto) 0.1 x10^3/uL (0.0-0.2) Sodium Level 131 mmol/L (136-145) Potassium Level 4.7 mmol/L (3.5-5.1) Chloride Level 93 mmol/L (98-107) Carbon Dioxide Level 27 mmol/L (21-32) Anion Gap 11 (6-14) Blood Urea Nitrogen 47 mg/dL (8-26) Creatinine 3.3 mg/dL (0.7-1.3) Estimated GFR (Cockcroft-Gault) 18.4 Glucose Level 205 mg/dL (70-99) Calcium Level 8.9 mg/dL (8.5-10.1) Phosphorus Level 5.0 mg/dL (2.6-4.7) Albumin 2.6 g/dL (3.4-5.0) Test 02/17/17 07:14 02/17/17 11:08 02/17/17 16:40 02/17/17 20:39 Glucose (Fingerstick) 200 mg/dL (70-99) 101 mg/dL (70-99) 158 mg/dL (70-99) 228 mg/dL (70-99) Test 02/18/17 03:20 02/18/17 07:30 White Blood Count 9.4 x10^3/uL (4.0-11.0) Red Blood Count 3.39 x10^6/uL (4.30-5.70) Hemoglobin 9.7 g/dL (13.0-17.5) Hematocrit 29.1 % (39.0-53.0) Mean Corpuscular Volume 86 fL (79-100) Mean Corpuscular Hemoglobin 29 pg (25-35) Mean Corpuscular Hemoglobin Concent 33 g/dL (31-37) Red Cell Distribution Width 15.7 % (11.5-14.5) Platelet Count 385 x10^3/uL (140-400) Neutrophils (%) (Auto) 66 % (31-73) Lymphocytes (%) (Auto) 12 % (24-48) Monocytes (%) (Auto) 12 % (0-9) Eosinophils (%) (Auto) 10 % (0-3) Basophils (%) (Auto) 1 % (0-3) Neutrophils # (Auto) 6.2 x10^3uL (1.8-7.7) Lymphocytes # (Auto) 1.1 x10^3/uL (1.0-4.8) Monocytes # (Auto) 1.1 x10^3/uL (0.0-1.1) Eosinophils # (Auto) 0.9 x10^3/uL (0.0-0.7) Basophils # (Auto) 0.1 x10^3/uL (0.0-0.2) Sodium Level 129 mmol/L (136-145) Potassium Level 4.4 mmol/L (3.5-5.1) Chloride Level 92 mmol/L (98-107) Carbon Dioxide Level 28 mmol/L (21-32) Anion Gap 9 (6-14) Blood Urea Nitrogen 59 mg/dL (8-26) Creatinine 3.5 mg/dL (0.7-1.3) Estimated GFR (Cockcroft-Gault) 17.2 Glucose Level 220 mg/dL (70-99) Calcium Level 9.4 mg/dL (8.5-10.1) Phosphorus Level 5.5 mg/dL (2.6-4.7) Albumin 2.7 g/dL (3.4-5.0) Glucose (Fingerstick) 195 mg/dL (70-99) Laboratory Tests Test 02/17/17 11:08 02/17/17 16:40 02/17/17 20:39 02/18/17 03:20 Glucose (Fingerstick) 101 mg/dL (70-99) 158 mg/dL (70-99) 228 mg/dL (70-99) White Blood Count 9.4 x10^3/uL (4.0-11.0) Red Blood Count 3.39 x10^6/uL (4.30-5.70) Hemoglobin 9.7 g/dL (13.0-17.5) Hematocrit 29.1 % (39.0-53.0) Mean Corpuscular Volume 86 fL (79-100) Mean Corpuscular Hemoglobin 29 pg (25-35) Mean Corpuscular Hemoglobin Concent 33 g/dL (31-37) Red Cell Distribution Width 15.7 % (11.5-14.5) Platelet Count 385 x10^3/uL (140-400) Neutrophils (%) (Auto) 66 % (31-73) Lymphocytes (%) (Auto) 12 % (24-48) Monocytes (%) (Auto) 12 % (0-9) Eosinophils (%) (Auto) 10 % (0-3) Basophils (%) (Auto) 1 % (0-3) Neutrophils # (Auto) 6.2 x10^3uL (1.8-7.7) Lymphocytes # (Auto) 1.1 x10^3/uL (1.0-4.8) Monocytes # (Auto) 1.1 x10^3/uL (0.0-1.1) Eosinophils # (Auto) 0.9 x10^3/uL (0.0-0.7) Basophils # (Auto) 0.1 x10^3/uL (0.0-0.2) Sodium Level 129 mmol/L (136-145) Potassium Level 4.4 mmol/L (3.5-5.1) Chloride Level 92 mmol/L (98-107) Carbon Dioxide Level 28 mmol/L (21-32) Anion Gap 9 (6-14) Blood Urea Nitrogen 59 mg/dL (8-26) Creatinine 3.5 mg/dL (0.7-1.3) Estimated GFR (Cockcroft-Gault) 17.2 Glucose Level 220 mg/dL (70-99) Calcium Level 9.4 mg/dL (8.5-10.1) Phosphorus Level 5.5 mg/dL (2.6-4.7) Albumin 2.7 g/dL (3.4-5.0) Test 02/18/17 07:30 Glucose (Fingerstick) 195 mg/dL (70-99) Microbiology 02/08/17 Urine Culture - Final, Complete 02/08/17 Urine Culture Result 1 (RIANNA) - Final, Complete Medications Current Medications Albuterol/ Ipratropium (Duoneb) 3 ml 1X ONCE NEB Last administered on 10:25; Start 02/08/17 at 09:30; Stop 02/08/17 at 09:38; Status DC Nitroglycerin (Nitro-Bid Oint) 1 inch 1X ONCE TP Last administered on 09:45; Start 02/08/17 at 09:30; Stop 02/08/17 at 09:38; Status DC Furosemide (Lasix) 40 mg 1X ONCE IVP Last administered on 02/08/17 09:45; Start 02/08/17 at 09:30; Stop 02/08/17 at 09:38; Status DC Ondansetron HCl (Zofran) 4 mg PRN Q8HRS PRN IV NAUSEA/VOMITING; Start at 11:30; Stop 02/09/17 at 11:29; Status DC Furosemide 100 mg/ Sodium Chloride 100 ml @ 0 mls/hr CONT PRN IV PER PROTOCOL Last administered on 02/12/17 08:37; Start 02/08/17 at 11:30; Stop 02/12/17 at 09:53; Status DC Aspirin (Bhavya Aspirin) 325 mg DAILY PO Last administered on 02/18/17 08:50; Start 02/09/17 at 09:00 Vitamin D (Vitamin D3) 1,000 unit DAILY PO Last administered on 02/18/17 08: 50; Start 02/09/17 at 09:00 Clopidogrel Bisulfate (Plavix) 75 mg DAILY PO Last administered on 02/18/17 08:50; Start 02/09/17 at 09:00 Metolazone (Zaroxolyn) 2.5 mg DAILY PO ; Start 02/09/17 at 09:00; Stop at 09:00; Status DC Spironolactone (Aldactone) 25 mg DAILY PO ; Start 02/09/17 at 09:00; Stop at 13:33; Status DC Tamsulosin HCl (Flomax) 0.4 mg DAILY PO Last administered on 02/18/17 08:50; Start 02/09/17 at 09:00 Trazodone HCl (Desyrel) 100 mg HS PO Last administered on 02/17/17 21:19; Start 02/08/17 at 21:00 Non-Formulary Medication 1 tab DAILY PO ; Start 02/09/17 at 09:00; Stop at 09:00; Status DC Glipizide (Glucotrol) 10 mg BIDBFRMEAL PO Last administered on 02/18/17 08:50 ; Start 02/09/17 at 17:00 Insulin Aspart (NovoLOG) 20 units TIDAC SQ Last administered on 02/18/17 08: 56; Start 02/08/17 at 16:30 Insulin Detemir (Levemir) 60 units QHS SQ Last administered on 02/17/17 21:25 ; Start 02/08/17 at 21:00 Multivitamins (Thera M Plus) 1 tab DAILY PO Last administered on 02/18/17 08: 50; Start 02/09/17 at 09:00 Acetaminophen (Tylenol) 650 mg PRN Q6HRS PRN PO FEVER; Start 02/08/17 at 16:30 Ondansetron HCl (Zofran) 4 mg PRN Q6HRS PRN IV NAUSEA/VOMITING; Start at 16:30 Morphine Sulfate 2 mg PRN Q2HR PRN IV PAIN; Start 02/08/17 at 16:30 Tramadol HCl (Ultram) 50 mg PRN Q6HRS PRN PO PAIN Last administered on 21:24; Start 02/08/17 at 16:30 Hydralazine HCl (Apresoline Inj) 10 mg PRN Q4HRS PRN IVP ELEVATED BP, SEE COMMENTS; Start 02/08/17 at 16:30 Docusate Sodium (Colace) 100 mg PRN DAILY PRN PO CONSTIPATION Last administered on 02/17/17 14:11; Start 02/08/17 at 16:30 Insulin Aspart (NovoLOG) 0-9 UNITS TIDWMEALS SQ Last administered on 08:12; Start 02/08/17 at 17:00 Dextrose (Dextrose 50%-Water Syringe) 12.5 gm PRN Q15MIN PRN IV SEE COMMENTS; Start 02/08/17 at 16:30 Albuterol Sulfate (Ventolin Neb Soln) 2.5 mg PRN Q4HRS PRN NEB SHORTNESS OF BREATH Last administered on 02/10/17 04:31; Start 02/08/17 at 16:30 Albuterol/ Ipratropium (Duoneb) 3 ml RTQID NEB Last administered on 02/18/17 07:33; Start 02/08/17 at 17:00 Heparin Sodium (Porcine) (Heparin Sq) 5,000 unit Q8HRS SQ Last administered on 02/18/17 06:03; Start 02/08/17 at 22:00 Alprazolam (Xanax) 0.25 mg PRN BID PRN PO ANXIETY / AGITATION Last administered on 02/08/17 17:52; Start 02/08/17 at 17:15; Stop 02/08/17 at 19 :44; Status DC Ceftriaxone Sodium 50 ml @ 100 mls/hr DAILY IV ; Start 02/09/17 at 09:00; Status UNV Alprazolam (Xanax) 0.5 mg PRN Q6HRS PRN PO ANXIETY / AGITATION Last administered on 02/09/17 08:43; Start 02/08/17 at 19:45; Stop 02/09/17 at 10 :55; Status DC Ceftriaxone Sodium (Rocephin) 1 gm Q24H IVP Last administered on 02/10/17 21: 24; Start 02/08/17 at 20:00; Stop 02/11/17 at 15:00; Status DC Potassium Chloride (Klor-Con) 40 meq 1X ONCE PO Last administered on 08:43; Start 02/09/17 at 08:15; Stop 02/09/17 at 08:16; Status DC Potassium Chloride (Klor-Con) 40 meq 1X ONCE PO Last administered on 12:23; Start 02/09/17 at 12:00; Stop 02/09/17 at 12:01; Status DC Dobutamine HCl/ Dextrose 250 ml @ 0 mls/hr CONT PRN IV SEE I/O RECORD Last administered on 02/11/17 19:43; Start 02/09/17 at 08:15; Stop 02/12/17 at 09 :53; Status DC Alprazolam (Xanax) 0.25 mg PRN Q6HRS PRN PO ANXIETY / AGITATION Last administered on 02/12/17 09:30; Start 02/09/17 at 11:00; Stop 02/12/17 at 13 :09; Status DC Potassium Chloride (Klor-Con) 40 meq PRN Q4HRS PRN PO for K < 4.0 Last administered on 02/09/17 22:13; Start 02/09/17 at 11:15 Albumin Human 100 ml @ 100 mls/hr 1X ONCE IV Last administered on 02/10/17 12:00; Start 02/10/17 at 12:00; Stop 02/10/17 at 12:59; Status DC Albumin Human 100 ml @ 100 mls/hr 1X ONCE IV Last administered on 02/10/17 21:23; Start 02/10/17 at 20:00; Stop 02/10/17 at 20:59; Status DC Magnesium Sulfate/ Dextrose 50 ml @ 25 mls/hr PRN DAILY PRN IV for Mag < 1.7 on am labs; Start 02/11/17 at 11:30 Cefpodoxime Proxetil (Vantin) 100 mg BID PO Last administered on 02/14/17 08: 24; Start 02/11/17 at 21:00; Stop 02/14/17 at 11:12; Status DC Heparin Sodium/ Sodium Chloride 1,000 unit 1X ONCE IART Last administered on 02/12/17 13:18; Start 02/12/17 at 13:00; Stop 02/12/17 at 13:05; Status DC Midazolam HCl (Versed) 2 mg 1X ONCE IV Last administered on 02/12/17 13:20; Start 02/12/17 at 13:00; Stop 02/12/17 at 13:05; Status DC Fentanyl Citrate (Fentanyl 2ml Vial) 100 mcg 1X ONCE IV Last administered on 02/12/17 13:20; Start 02/12/17 at 13:00; Stop 02/12/17 at 13:05; Status DC Lidocaine/ Epinephrine (Xylocaine 1%-Epi 1:100,000) 20 ml 1X ONCE IJ Last administered on 02/12/17 13:21; Start 02/12/17 at 13:00; Stop 02/12/17 at 13 :05; Status DC Heparin Sodium (Porcine) (Heparin Sodium) 3,800 unit 1X ONCE INT CAT Last administered on 02/12/17 13:20; Start 02/12/17 at 13:00; Stop 02/12/17 at 13 :05; Status DC Cefazolin Sodium/ Dextrose 50 ml @ 100 mls/hr 1X ONCE IV Last administered on 02/12/17 13:21; Start 02/12/17 at 13:00; Stop 02/12/17 at 13:29; Status DC Alprazolam (Xanax) 1 mg PRN Q6HRS PRN PO ANXIETY / AGITATION Last administered on 02/18/17 03:47; Start 02/12/17 at 13:15 Sodium Chloride 1,000 ml @ 1,000 mls/hr Q1H PRN IV hypotension; Start at 18:54; Stop 02/13/17 at 00:53; Status DC Sodium Chloride 1,000 ml @ 400 mls/hr Q2H30M PRN IV PATENCY; Start 02/12/17 at 18:54; Stop 02/13/17 at 06:53; Status DC Info (PHARMACY MONITORING -- do not chart) 1 each PRN DAILY PRN MC SEE COMMENTS ; Start 02/12/17 at 19:00; Stop 02/14/17 at 11:07; Status DC Sodium Chloride 1,000 ml @ 1,000 mls/hr Q1H PRN IV hypotension; Start at 13:21; Stop 02/13/17 at 19:20; Status DC Info (PHARMACY MONITORING -- do not chart) 1 each PRN DAILY PRN MC SEE COMMENTS ; Start 02/13/17 at 13:30 Cefpodoxime Proxetil (Vantin) 100 mg QHS PO Last administered on 02/15/17 20: 47; Start 02/14/17 at 21:00; Stop 02/16/17 at 14:02; Status DC Sodium Chloride 1,000 ml @ 1,000 mls/hr Q1H PRN IV hypotension; Start at 07:46; Stop 02/15/17 at 13:45; Status DC Sodium Chloride (Normal Saline Flush) 10 ml 1X PRN PRN IV AP catheter pack; Start 02/15/17 at 08:00; Stop 02/16/17 at 07:59; Status DC Sodium Chloride (Normal Saline Flush) 10 ml 1X PRN PRN IV WARDSPERSON catheter pack; Start 02/15/17 at 08:00; Stop 02/16/17 at 07:59; Status DC Sodium Chloride 1,000 ml @ 400 mls/hr Q2H30M PRN IV PATENCY; Start 02/15/17 at 07:46; Stop 02/15/17 at 19:45; Status DC Info (PHARMACY MONITORING -- do not chart) 1 each PRN DAILY PRN MC SEE COMMENTS ; Start 02/15/17 at 08:00; Status UNV Info (PHARMACY MONITORING -- do not chart) 1 each PRN DAILY PRN MC SEE COMMENTS ; Start 02/15/17 at 08:00; Status UNV Sodium Chloride 1,000 ml @ 60 mls/hr [id number] IV Last administered on t 18:39; Start 02/15/17 at 19:00; Stop 02/17/17 at 17:44; Status DC Polyethylene Glycol (miraLAX PACKET) 17 gm PRN DAILY PRN PO CONSTIPATION; Start 02/17/17 at 14:45 Sodium Chloride 1,000 ml @ 1,000 mls/hr Q1H PRN IV hypotension; Start at 08:50; Stop 02/18/17 at 14:49 Acetaminophen (Tylenol) 500 mg 1X PRN PRN PO MILD PAIN / TEMP; Start 02/18/17 at 09:00; Stop 02/19/17 at 08:59 Diphenhydramine HCl (Benadryl) 25 mg 1X PRN PRN IV ITCHING; Start 02/18/17 at 09:00; Stop 02/19/17 at 08:59 Diphenhydramine HCl (Benadryl) 25 mg 1X PRN PRN IV ITCHING; Start 02/18/17 at 09:00; Stop 02/19/17 at 08:59 Sodium Chloride 1,000 ml @ 400 mls/hr Q2H30M PRN IV PATENCY; Start 02/18/17 at 08:50; Stop 02/18/17 at 20:49 Info (PHARMACY MONITORING -- do not chart) 1 each PRN DAILY PRN MC SEE COMMENTS ; Start 02/18/17 at 09:00; Stop 02/18/17 at 09:00; Status DC Info (PHARMACY MONITORING -- do not chart) 1 each PRN DAILY PRN MC SEE COMMENTS ; Start 02/18/17 at 09:00; Status UNV Active Scripts Active Novolog (Insulin Aspart) 100 Unit/1 Ml Cartridge 25 Unit SQ TID 30 Days Metolazone 2.5 Mg Tablet 2.5 Mg PO DAILY Flomax (Tamsulosin Hcl) 0.4 Mg Cap.er.24h 0.4 Mg PO DAILY Reported Trazodone Hcl 100 Mg Tablet 100 Mg PO HS Glipizide 10 Mg Tablet 1 Tab PO BID Spironolactone 25 Mg Tablet 1 Tab PO DAILY Multi-Day Vitamins (Multivitamin) 1 Each Tablet 1 Tab PO DAILY Vitamin D3 (Cholecalciferol (Vitamin D3)) 1,000 Unit Tablet 1 Tab PO DAILY Aspirin 325 Mg Tablet 1 Tab PO DAILY Bumetanide 2 Mg Tablet 1 Tab PO DAILY Lantus Solostar (Insulin Glargine,Hum.rec.anlog) 100 Unit/1 Ml Insuln.pen 75 Unit SQ QHS Clopidogrel (Clopidogrel Bisulfate) 75 Mg Tablet 1 Tab PO DAILY Vitals/I & O Vital Sign - Last 24 Hours 02/17/17 02/17/17 02/17/17 02/17/17 11:00 11:41 12:18 15:18 Temp 97.9 97.9 Pulse 69 Resp 24 B/P (MAP) 130/60 (83) Pulse Ox 92 95 95 O2 Delivery Nasal Cannula Nasal Cannula Nasal Cannula O2 Flow Rate 1.5 1.0 1.0 02/17/17 02/17/17 02/17/17 02/17/17 19:00 19:35 19:45 22:46 Temp 98.2 97.5 98.2 97.5 Pulse 91 79 Resp 18 18 B/P (MAP) 111/77 (88) 115/67 (83) Pulse Ox 93 95 91 O2 Delivery Nasal Cannula Nasal Cannula Nasal Cannula Nasal Cannula O2 Flow Rate 1.0 2.0 1.0 1.5 02/18/17 07:33 Pulse Ox 92 O2 Delivery Nasal Cannula O2 Flow Rate 2.0 Intake and Output 02/17/17 02/17/17 02/18/17 15:00 23:00 07:00 Intake Total 120 ml 400 ml Output Total 200 ml Balance 120 ml -200 ml 400 ml OKSANA JOSEPH MD Feb 18, 2017 09:34
[2017-02-18 11:00] VITALS: BP 133/61
--- NOTE | 2017-02-18 11:26 | PDOC ---
Renal-Progress Notes Subjective Notes Notes NONE History of Present Illness Hx of present illness STABLE Vitals Vitals Vital Signs Date Time Temp Pulse Resp B/P (MAP) Pulse Ox O2 Delivery O2 Flow Rate FiO2 02/18/17 11:01 95 Nasal Cannula 2.0 02/18/17 07:00 97.5 101 22 107/46 (66) 97.5 Weight Weight [ ] I.O. Intake and Output Intake and Output 02/18/17 07:00 Intake Total 520 ml Output Total 200 ml Balance 320 ml Intake Oral 520 ml Output Urine Total 200 ml Labs Labs Laboratory Tests Test 02/17/17 16:40 02/17/17 20:39 02/18/17 03:20 02/18/17 07:30 Glucose (Fingerstick) 158 mg/dL (70-99) 228 mg/dL (70-99) 195 mg/dL (70-99) White Blood Count 9.4 x10^3/uL (4.0-11.0) Red Blood Count 3.39 x10^6/uL (4.30-5.70) Hemoglobin 9.7 g/dL (13.0-17.5) Hematocrit 29.1 % (39.0-53.0) Mean Corpuscular Volume 86 fL (79-100) Mean Corpuscular Hemoglobin 29 pg (25-35) Mean Corpuscular Hemoglobin Concent 33 g/dL (31-37) Red Cell Distribution Width 15.7 % (11.5-14.5) Platelet Count 385 x10^3/uL (140-400) Neutrophils (%) (Auto) 66 % (31-73) Lymphocytes (%) (Auto) 12 % (24-48) Monocytes (%) (Auto) 12 % (0-9) Eosinophils (%) (Auto) 10 % (0-3) Basophils (%) (Auto) 1 % (0-3) Neutrophils # (Auto) 6.2 x10^3uL (1.8-7.7) Lymphocytes # (Auto) 1.1 x10^3/uL (1.0-4.8) Monocytes # (Auto) 1.1 x10^3/uL (0.0-1.1) Eosinophils # (Auto) 0.9 x10^3/uL (0.0-0.7) Basophils # (Auto) 0.1 x10^3/uL (0.0-0.2) Sodium Level 129 mmol/L (136-145) Potassium Level 4.4 mmol/L (3.5-5.1) Chloride Level 92 mmol/L (98-107) Carbon Dioxide Level 28 mmol/L (21-32) Anion Gap 9 (6-14) Blood Urea Nitrogen 59 mg/dL (8-26) Creatinine 3.5 mg/dL (0.7-1.3) Estimated GFR (Cockcroft-Gault) 17.2 Glucose Level 220 mg/dL (70-99) Calcium Level 9.4 mg/dL (8.5-10.1) Phosphorus Level 5.5 mg/dL (2.6-4.7) Albumin 2.7 g/dL (3.4-5.0) Micro Micro Microbiology 02/08/17 Urine Culture - Final, Complete 02/08/17 Urine Culture Result 1 (RIANNA) - Final, Complete Review of Systems Constitutional: yes: weakness, alert, oriented Ears/Nose/Throat: Yes: no symptom reported Eyes: Yes: no symptom reported Pulmonary: Yes dyspnea Cardiovascular: Yes edema Genitourinary: Yes: other (OLIGURIA) Musculoskeletal: Yes: muscle stiffness Skin: Yes no symptom reported Psychiatric/Neurological: Yes: no symptom reported Endocrine: Yes: no symptom reported Hematologic/Lymphatic: Yes: no symptom reported Physical Exam General Appearance: no apparent distress Skin: warm Respiratory: decreased breath sounds Abdomen: soft, bowel sounds present Genitourinary: bladder flat Extremities: pulses present, edema Neurology: alert, oriented Assessment Assessment IMP ESRD ANEMIA LE EDEMA CHF PLAN HD TODAY UF TO DW [facility] TOLERATED START [facility] OP HD HAS BEEN SET UP FOR [facility] LOUIE CHOPRA MD Feb 18, 2017 11:26
--- NOTE | 2017-02-18 12:16 | PDOC ---
Objective: Objective: Reviewed other notes. DC orders. Vital Signs: Vital Signs Date Time Temp Pulse Resp B/P (MAP) Pulse Ox O2 Delivery O2 Flow Rate FiO2 02/18/17 11:01 95 Nasal Cannula 2.0 02/18/17 07:00 97.5 101 22 107/46 (66) 97.5 Labs: Laboratory Tests Test 02/17/17 16:40 02/17/17 20:39 02/18/17 03:20 02/18/17 07:30 Glucose (Fingerstick) 158 mg/dL 228 mg/dL 195 mg/dL White Blood Count 9.4 x10^3/uL Red Blood Count 3.39 x10^6/uL Hemoglobin 9.7 g/dL Hematocrit 29.1 % Mean Corpuscular Volume 86 fL Mean Corpuscular Hemoglobin 29 pg Mean Corpuscular Hemoglobin Concent 33 g/dL Red Cell Distribution Width 15.7 % Platelet Count 385 x10^3/uL Neutrophils (%) (Auto) 66 % Lymphocytes (%) (Auto) 12 % Monocytes (%) (Auto) 12 % Eosinophils (%) (Auto) 10 % Basophils (%) (Auto) 1 % Neutrophils # (Auto) 6.2 x10^3uL Lymphocytes # (Auto) 1.1 x10^3/uL Monocytes # (Auto) 1.1 x10^3/uL Eosinophils # (Auto) 0.9 x10^3/uL Basophils # (Auto) 0.1 x10^3/uL Sodium Level 129 mmol/L Potassium Level 4.4 mmol/L Chloride Level 92 mmol/L Carbon Dioxide Level 28 mmol/L Anion Gap 9 Blood Urea Nitrogen 59 mg/dL Creatinine 3.5 mg/dL Estimated GFR (Cockcroft-Gault) 17.2 Glucose Level 220 mg/dL Calcium Level 9.4 mg/dL Phosphorus Level 5.5 mg/dL Albumin 2.7 g/dL PE: GEN: dialyzing in ICU LUNGS: clear HEART: RRR ABD: soft, non-tender, BS+ NEURO/PSYCH: asleep, did not awaken during exam A/P: CHF, ESRD on HD, anemia (stable) Possible cirrhosis -h/o heavy alcohol use (sober now) -- Stable GI-patel. DC per primary. KENAN REICH Feb 18, 2017 12:16
--- NOTE | 2017-02-18 13:33 | PDOC ---
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 Vitals Vitals Vital Signs Date Time Temp Pulse Resp B/P (MAP) Pulse Ox O2 Delivery O2 Flow Rate FiO2 02/18/17 11:01 95 Nasal Cannula 2.0 02/18/17 11:00 97.6 96 24 133/61 (85) 97.6 Physical Exam General: Alert, Oriented X3, Cooperative, No acute distress, Other (Asleep) Heart: Regular rate, Normal S1, Normal S2, No murmurs Lungs: Clear, Other (No RRW) Abdomen: Normal bowel sounds, Soft, No tenderness, Other (Possible distention) Extremities: No cyanosis, Other (3+ pitting edema, clubbing of the fingernails) Skin: No rashes, No breakdown, Other (open lesion on right castellanos) Labs LABS Laboratory Tests Test 02/17/17 16:40 02/17/17 20:39 02/18/17 03:20 02/18/17 07:30 Glucose (Fingerstick) 158 mg/dL (70-99) 228 mg/dL (70-99) 195 mg/dL (70-99) White Blood Count 9.4 x10^3/uL (4.0-11.0) Red Blood Count 3.39 x10^6/uL (4.30-5.70) Hemoglobin 9.7 g/dL (13.0-17.5) Hematocrit 29.1 % (39.0-53.0) Mean Corpuscular Volume 86 fL (79-100) Mean Corpuscular Hemoglobin 29 pg (25-35) Mean Corpuscular Hemoglobin Concent 33 g/dL (31-37) Red Cell Distribution Width 15.7 % (11.5-14.5) Platelet Count 385 x10^3/uL (140-400) Neutrophils (%) (Auto) 66 % (31-73) Lymphocytes (%) (Auto) 12 % (24-48) Monocytes (%) (Auto) 12 % (0-9) Eosinophils (%) (Auto) 10 % (0-3) Basophils (%) (Auto) 1 % (0-3) Neutrophils # (Auto) 6.2 x10^3uL (1.8-7.7) Lymphocytes # (Auto) 1.1 x10^3/uL (1.0-4.8) Monocytes # (Auto) 1.1 x10^3/uL (0.0-1.1) Eosinophils # (Auto) 0.9 x10^3/uL (0.0-0.7) Basophils # (Auto) 0.1 x10^3/uL (0.0-0.2) Sodium Level 129 mmol/L (136-145) Potassium Level 4.4 mmol/L (3.5-5.1) Chloride Level 92 mmol/L (98-107) Carbon Dioxide Level 28 mmol/L (21-32) Anion Gap 9 (6-14) Blood Urea Nitrogen 59 mg/dL (8-26) Creatinine 3.5 mg/dL (0.7-1.3) Estimated GFR (Cockcroft-Gault) 17.2 Glucose Level 220 mg/dL (70-99) Calcium Level 9.4 mg/dL (8.5-10.1) Phosphorus Level 5.5 mg/dL (2.6-4.7) Albumin 2.7 g/dL (3.4-5.0) Review of Systems Review of Systems General: No Fever, Fatigue, CV: Has Pacemaker, No Chest Pain, Dizziness Assessment and Plan Assessmemt and Plan Assessment: CHF Acute hypoxia Acute on chronic systolic CHF exacerbation COPD DM2 HTN History of CAD with CABG Anxiety 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 Target Today Problems: Comment Review of Relevant I have reviewed the following items sukumar (where applicable) has been applied. Labs Laboratory Tests Test 02/16/17 15:27 02/16/17 21:00 02/17/17 04:00 02/17/17 07:14 Glucose (Fingerstick) 233 mg/dL (70-99) 285 mg/dL (70-99) 200 mg/dL (70-99) White Blood Count 10.5 x10^3/uL (4.0-11.0) Red Blood Count 3.47 x10^6/uL (4.30-5.70) Hemoglobin 9.8 g/dL (13.0-17.5) Hematocrit 29.8 % (39.0-53.0) Mean Corpuscular Volume 86 fL (79-100) Mean Corpuscular Hemoglobin 28 pg (25-35) Mean Corpuscular Hemoglobin Concent 33 g/dL (31-37) Red Cell Distribution Width 15.4 % (11.5-14.5) Platelet Count 359 x10^3/uL (140-400) Neutrophils (%) (Auto) 71 % (31-73) Lymphocytes (%) (Auto) 12 % (24-48) Monocytes (%) (Auto) 10 % (0-9) Eosinophils (%) (Auto) 7 % (0-3) Basophils (%) (Auto) 1 % (0-3) Neutrophils # (Auto) 7.5 x10^3uL (1.8-7.7) Lymphocytes # (Auto) 1.2 x10^3/uL (1.0-4.8) Monocytes # (Auto) 1.0 x10^3/uL (0.0-1.1) Eosinophils # (Auto) 0.7 x10^3/uL (0.0-0.7) Basophils # (Auto) 0.1 x10^3/uL (0.0-0.2) Sodium Level 131 mmol/L (136-145) Potassium Level 4.7 mmol/L (3.5-5.1) Chloride Level 93 mmol/L (98-107) Carbon Dioxide Level 27 mmol/L (21-32) Anion Gap 11 (6-14) Blood Urea Nitrogen 47 mg/dL (8-26) Creatinine 3.3 mg/dL (0.7-1.3) Estimated GFR (Cockcroft-Gault) 18.4 Glucose Level 205 mg/dL (70-99) Calcium Level 8.9 mg/dL (8.5-10.1) Phosphorus Level 5.0 mg/dL (2.6-4.7) Albumin 2.6 g/dL (3.4-5.0) Test 02/17/17 11:08 02/17/17 16:40 02/17/17 20:39 02/18/17 03:20 Glucose (Fingerstick) 101 mg/dL (70-99) 158 mg/dL (70-99) 228 mg/dL (70-99) White Blood Count 9.4 x10^3/uL (4.0-11.0) Red Blood Count 3.39 x10^6/uL (4.30-5.70) Hemoglobin 9.7 g/dL (13.0-17.5) Hematocrit 29.1 % (39.0-53.0) Mean Corpuscular Volume 86 fL (79-100) Mean Corpuscular Hemoglobin 29 pg (25-35) Mean Corpuscular Hemoglobin Concent 33 g/dL (31-37) Red Cell Distribution Width 15.7 % (11.5-14.5) Platelet Count 385 x10^3/uL (140-400) Neutrophils (%) (Auto) 66 % (31-73) Lymphocytes (%) (Auto) 12 % (24-48) Monocytes (%) (Auto) 12 % (0-9) Eosinophils (%) (Auto) 10 % (0-3) Basophils (%) (Auto) 1 % (0-3) Neutrophils # (Auto) 6.2 x10^3uL (1.8-7.7) Lymphocytes # (Auto) 1.1 x10^3/uL (1.0-4.8) Monocytes # (Auto) 1.1 x10^3/uL (0.0-1.1) Eosinophils # (Auto) 0.9 x10^3/uL (0.0-0.7) Basophils # (Auto) 0.1 x10^3/uL (0.0-0.2) Sodium Level 129 mmol/L (136-145) Potassium Level 4.4 mmol/L (3.5-5.1) Chloride Level 92 mmol/L (98-107) Carbon Dioxide Level 28 mmol/L (21-32) Anion Gap 9 (6-14) Blood Urea Nitrogen 59 mg/dL (8-26) Creatinine 3.5 mg/dL (0.7-1.3) Estimated GFR (Cockcroft-Gault) 17.2 Glucose Level 220 mg/dL (70-99) Calcium Level 9.4 mg/dL (8.5-10.1) Phosphorus Level 5.5 mg/dL (2.6-4.7) Albumin 2.7 g/dL (3.4-5.0) Test 02/18/17 07:30 Glucose (Fingerstick) 195 mg/dL (70-99) Laboratory Tests Test 02/17/17 16:40 02/17/17 20:39 02/18/17 03:20 02/18/17 07:30 Glucose (Fingerstick) 158 mg/dL (70-99) 228 mg/dL (70-99) 195 mg/dL (70-99) White Blood Count 9.4 x10^3/uL (4.0-11.0) Red Blood Count 3.39 x10^6/uL (4.30-5.70) Hemoglobin 9.7 g/dL (13.0-17.5) Hematocrit 29.1 % (39.0-53.0) Mean Corpuscular Volume 86 fL (79-100) Mean Corpuscular Hemoglobin 29 pg (25-35) Mean Corpuscular Hemoglobin Concent 33 g/dL (31-37) Red Cell Distribution Width 15.7 % (11.5-14.5) Platelet Count 385 x10^3/uL (140-400) Neutrophils (%) (Auto) 66 % (31-73) Lymphocytes (%) (Auto) 12 % (24-48) Monocytes (%) (Auto) 12 % (0-9) Eosinophils (%) (Auto) 10 % (0-3) Basophils (%) (Auto) 1 % (0-3) Neutrophils # (Auto) 6.2 x10^3uL (1.8-7.7) Lymphocytes # (Auto) 1.1 x10^3/uL (1.0-4.8) Monocytes # (Auto) 1.1 x10^3/uL (0.0-1.1) Eosinophils # (Auto) 0.9 x10^3/uL (0.0-0.7) Basophils # (Auto) 0.1 x10^3/uL (0.0-0.2) Sodium Level 129 mmol/L (136-145) Potassium Level 4.4 mmol/L (3.5-5.1) Chloride Level 92 mmol/L (98-107) Carbon Dioxide Level 28 mmol/L (21-32) Anion Gap 9 (6-14) Blood Urea Nitrogen 59 mg/dL (8-26) Creatinine 3.5 mg/dL (0.7-1.3) Estimated GFR (Cockcroft-Gault) 17.2 Glucose Level 220 mg/dL (70-99) Calcium Level 9.4 mg/dL (8.5-10.1) Phosphorus Level 5.5 mg/dL (2.6-4.7) Albumin 2.7 g/dL (3.4-5.0) Microbiology 02/08/17 Urine Culture - Final, Complete 02/08/17 Urine Culture Result 1 (RIANNA) - Final, Complete Medications Current Medications Albuterol/ Ipratropium (Duoneb) 3 ml 1X ONCE NEB Last administered on 10:25; Start 02/08/17 at 09:30; Stop 02/08/17 at 09:38; Status DC Nitroglycerin (Nitro-Bid Oint) 1 inch 1X ONCE TP Last administered on 09:45; Start 02/08/17 at 09:30; Stop 02/08/17 at 09:38; Status DC Furosemide (Lasix) 40 mg 1X ONCE IVP Last administered on 02/08/17 09:45; Start 02/08/17 at 09:30; Stop 02/08/17 at 09:38; Status DC Ondansetron HCl (Zofran) 4 mg PRN Q8HRS PRN IV NAUSEA/VOMITING; Start at 11:30; Stop 02/09/17 at 11:29; Status DC Furosemide 100 mg/ Sodium Chloride 100 ml @ 0 mls/hr CONT PRN IV PER PROTOCOL Last administered on 02/12/17 08:37; Start 02/08/17 at 11:30; Stop 02/12/17 at 09:53; Status DC Aspirin (Bhavya Aspirin) 325 mg DAILY PO Last administered on 02/18/17 08:50; Start 02/09/17 at 09:00 Vitamin D (Vitamin D3) 1,000 unit DAILY PO Last administered on 02/18/17 08: 50; Start 02/09/17 at 09:00 Clopidogrel Bisulfate (Plavix) 75 mg DAILY PO Last administered on 02/18/17 08:50; Start 02/09/17 at 09:00 Metolazone (Zaroxolyn) 2.5 mg DAILY PO ; Start 02/09/17 at 09:00; Stop at 09:00; Status DC Spironolactone (Aldactone) 25 mg DAILY PO ; Start 02/09/17 at 09:00; Stop at 13:33; Status DC Tamsulosin HCl (Flomax) 0.4 mg DAILY PO Last administered on 02/18/17 08:50; Start 02/09/17 at 09:00 Trazodone HCl (Desyrel) 100 mg HS PO Last administered on 02/17/17 21:19; Start 02/08/17 at 21:00 Non-Formulary Medication 1 tab DAILY PO ; Start 02/09/17 at 09:00; Stop at 09:00; Status DC Glipizide (Glucotrol) 10 mg BIDBFRMEAL PO Last administered on 02/18/17 08:50 ; Start 02/09/17 at 17:00 Insulin Aspart (NovoLOG) 20 units TIDAC SQ Last administered on 02/18/17 08: 56; Start 02/08/17 at 16:30 Insulin Detemir (Levemir) 60 units QHS SQ Last administered on 02/17/17 21:25 ; Start 02/08/17 at 21:00 Multivitamins (Thera M Plus) 1 tab DAILY PO Last administered on 02/18/17 08: 50; Start 02/09/17 at 09:00 Acetaminophen (Tylenol) 650 mg PRN Q6HRS PRN PO FEVER; Start 02/08/17 at 16:30 Ondansetron HCl (Zofran) 4 mg PRN Q6HRS PRN IV NAUSEA/VOMITING; Start at 16:30 Morphine Sulfate 2 mg PRN Q2HR PRN IV PAIN; Start 02/08/17 at 16:30 Tramadol HCl (Ultram) 50 mg PRN Q6HRS PRN PO PAIN Last administered on 21:24; Start 02/08/17 at 16:30 Hydralazine HCl (Apresoline Inj) 10 mg PRN Q4HRS PRN IVP ELEVATED BP, SEE COMMENTS; Start 02/08/17 at 16:30 Docusate Sodium (Colace) 100 mg PRN DAILY PRN PO CONSTIPATION Last administered on 02/17/17 14:11; Start 02/08/17 at 16:30 Insulin Aspart (NovoLOG) 0-9 UNITS TIDWMEALS SQ Last administered on 08:12; Start 02/08/17 at 17:00 Dextrose (Dextrose 50%-Water Syringe) 12.5 gm PRN Q15MIN PRN IV SEE COMMENTS; Start 02/08/17 at 16:30 Albuterol Sulfate (Ventolin Neb Soln) 2.5 mg PRN Q4HRS PRN NEB SHORTNESS OF BREATH Last administered on 02/10/17 04:31; Start 02/08/17 at 16:30 Albuterol/ Ipratropium (Duoneb) 3 ml RTQID NEB Last administered on 02/18/17 11:01; Start 02/08/17 at 17:00 Heparin Sodium (Porcine) (Heparin Sq) 5,000 unit Q8HRS SQ Last administered on 02/18/17 06:03; Start 02/08/17 at 22:00 Alprazolam (Xanax) 0.25 mg PRN BID PRN PO ANXIETY / AGITATION Last administered on 02/08/17 17:52; Start 02/08/17 at 17:15; Stop 02/08/17 at 19 :44; Status DC Ceftriaxone Sodium 50 ml @ 100 mls/hr DAILY IV ; Start 02/09/17 at 09:00; Status UNV Alprazolam (Xanax) 0.5 mg PRN Q6HRS PRN PO ANXIETY / AGITATION Last administered on 02/09/17 08:43; Start 02/08/17 at 19:45; Stop 02/09/17 at 10 :55; Status DC Ceftriaxone Sodium (Rocephin) 1 gm Q24H IVP Last administered on 02/10/17 21: 24; Start 02/08/17 at 20:00; Stop 02/11/17 at 15:00; Status DC Potassium Chloride (Klor-Con) 40 meq 1X ONCE PO Last administered on 08:43; Start 02/09/17 at 08:15; Stop 02/09/17 at 08:16; Status DC Potassium Chloride (Klor-Con) 40 meq 1X ONCE PO Last administered on 12:23; Start 02/09/17 at 12:00; Stop 02/09/17 at 12:01; Status DC Dobutamine HCl/ Dextrose 250 ml @ 0 mls/hr CONT PRN IV SEE I/O RECORD Last administered on 02/11/17 19:43; Start 02/09/17 at 08:15; Stop 02/12/17 at 09 :53; Status DC Alprazolam (Xanax) 0.25 mg PRN Q6HRS PRN PO ANXIETY / AGITATION Last administered on 02/12/17 09:30; Start 02/09/17 at 11:00; Stop 02/12/17 at 13 :09; Status DC Potassium Chloride (Klor-Con) 40 meq PRN Q4HRS PRN PO for K < 4.0 Last administered on 02/09/17 22:13; Start 02/09/17 at 11:15 Albumin Human 100 ml @ 100 mls/hr 1X ONCE IV Last administered on 02/10/17 12:00; Start 02/10/17 at 12:00; Stop 02/10/17 at 12:59; Status DC Albumin Human 100 ml @ 100 mls/hr 1X ONCE IV Last administered on 02/10/17 21:23; Start 02/10/17 at 20:00; Stop 02/10/17 at 20:59; Status DC Magnesium Sulfate/ Dextrose 50 ml @ 25 mls/hr PRN DAILY PRN IV for Mag < 1.7 on am labs; Start 02/11/17 at 11:30 Cefpodoxime Proxetil (Vantin) 100 mg BID PO Last administered on 02/14/17 08: 24; Start 02/11/17 at 21:00; Stop 02/14/17 at 11:12; Status DC Heparin Sodium/ Sodium Chloride 1,000 unit 1X ONCE IART Last administered on 02/12/17 13:18; Start 02/12/17 at 13:00; Stop 02/12/17 at 13:05; Status DC Midazolam HCl (Versed) 2 mg 1X ONCE IV Last administered on 02/12/17 13:20; Start 02/12/17 at 13:00; Stop 02/12/17 at 13:05; Status DC Fentanyl Citrate (Fentanyl 2ml Vial) 100 mcg 1X ONCE IV Last administered on 02/12/17 13:20; Start 02/12/17 at 13:00; Stop 02/12/17 at 13:05; Status DC Lidocaine/ Epinephrine (Xylocaine 1%-Epi 1:100,000) 20 ml 1X ONCE IJ Last administered on 02/12/17 13:21; Start 02/12/17 at 13:00; Stop 02/12/17 at 13 :05; Status DC Heparin Sodium (Porcine) (Heparin Sodium) 3,800 unit 1X ONCE INT CAT Last administered on 02/12/17 13:20; Start 02/12/17 at 13:00; Stop 02/12/17 at 13 :05; Status DC Cefazolin Sodium/ Dextrose 50 ml @ 100 mls/hr 1X ONCE IV Last administered on 02/12/17 13:21; Start 02/12/17 at 13:00; Stop 02/12/17 at 13:29; Status DC Alprazolam (Xanax) 1 mg PRN Q6HRS PRN PO ANXIETY / AGITATION Last administered on 02/18/17 09:41; Start 02/12/17 at 13:15 Sodium Chloride 1,000 ml @ 1,000 mls/hr Q1H PRN IV hypotension; Start at 18:54; Stop 02/13/17 at 00:53; Status DC Sodium Chloride 1,000 ml @ 400 mls/hr Q2H30M PRN IV PATENCY; Start 02/12/17 at 18:54; Stop 02/13/17 at 06:53; Status DC Info (PHARMACY MONITORING -- do not chart) 1 each PRN DAILY PRN MC SEE COMMENTS ; Start 02/12/17 at 19:00; Stop 02/14/17 at 11:07; Status DC Sodium Chloride 1,000 ml @ 1,000 mls/hr Q1H PRN IV hypotension; Start at 13:21; Stop 02/13/17 at 19:20; Status DC Info (PHARMACY MONITORING -- do not chart) 1 each PRN DAILY PRN MC SEE COMMENTS ; Start 02/13/17 at 13:30 Cefpodoxime Proxetil (Vantin) 100 mg QHS PO Last administered on 02/15/17 20: 47; Start 02/14/17 at 21:00; Stop 02/16/17 at 14:02; Status DC Sodium Chloride 1,000 ml @ 1,000 mls/hr Q1H PRN IV hypotension; Start at 07:46; Stop 02/15/17 at 13:45; Status DC Sodium Chloride (Normal Saline Flush) 10 ml 1X PRN PRN IV AP catheter pack; Start 02/15/17 at 08:00; Stop 02/16/17 at 07:59; Status DC Sodium Chloride (Normal Saline Flush) 10 ml 1X PRN PRN IV M[employer] DES[employer] catheter pack; Start 02/15/17 at 08:00; Stop 02/16/17 at 07:59; Status DC Sodium Chloride 1,000 ml @ 400 mls/hr Q2H30M PRN IV PATENCY; Start 02/15/17 at 07:46; Stop 02/15/17 at 19:45; Status DC Info (PHARMACY MONITORING -- do not chart) 1 each PRN DAILY PRN MC SEE COMMENTS ; Start 02/15/17 at 08:00; Status UNV Info (PHARMACY MONITORING -- do not chart) 1 each PRN DAILY PRN MC SEE COMMENTS ; Start 02/15/17 at 08:00; Status UNV Sodium Chloride 1,000 ml @ 60 mls/hr [id number] IV Last administered on 18:39; Start 02/15/17 at 19:00; Stop 02/17/17 at 17:44; Status DC Polyethylene Glycol (miraLAX PACKET) 17 gm PRN DAILY PRN PO CONSTIPATION; Start 02/17/17 at 14:45 Sodium Chloride 1,000 ml @ 1,000 mls/hr Q1H PRN IV hypotension; Start at 08:50; Stop 02/18/17 at 14:49 Acetaminophen (Tylenol) 500 mg 1X PRN PRN PO MILD PAIN / TEMP; Start 02/18/17 at 09:00; Stop 02/19/17 at 08:59 Diphenhydramine HCl (Benadryl) 25 mg 1X PRN PRN IV ITCHING; Start 02/18/17 at 09:00; Stop 02/19/17 at 08:59 Diphenhydramine HCl (Benadryl) 25 mg 1X PRN PRN IV ITCHING; Start 02/18/17 at 09:00; Stop 02/19/17 at 08:59 Sodium Chloride 1,000 ml @ 400 mls/hr Q2H30M PRN IV PATENCY; Start 02/18/17 at 08:50; Stop 02/18/17 at 20:49 Info (PHARMACY MONITORING -- do not chart) 1 each PRN DAILY PRN MC SEE COMMENTS ; Start 02/18/17 at 09:00; Stop 02/18/17 at 09:00; Status DC Info (PHARMACY MONITORING -- do not chart) 1 each PRN DAILY PRN MC SEE COMMENTS ; Start 02/18/17 at 09:00; Status UNV Fentanyl Citrate (Fentanyl 2ml Vial) 100 mcg STK-MED ONCE .ROUTE ; Start at 12:14; Stop 02/18/17 at 10:41; Status DC Midazolam HCl (Versed) 2 mg STK-MED ONCE .ROUTE ; Start 02/12/17 at 12:14; Stop 02/18/17 at 10:41; Status DC Lidocaine/ Epinephrine (Xylocaine 1%-Epi 1:100,000) 20 ml STK-MED ONCE .ROUTE ; Start 02/12/17 at 12:14; Stop 02/18/17 at 10:41; Status DC Heparin Sodium (Porcine) (Heparin Sodium) 10,000 unit STK-MED ONCE .ROUTE ; Start 02/12/17 at 12:14; Stop 02/18/17 at 10:41; Status DC Heparin Sodium/ Sodium Chloride 500 ml @ As Directed STK-MED ONCE .ROUTE ; Start 02/12/17 at 12:14; Stop 02/18/17 at 10:41; Status DC Darbepoetin [place] (Aranesp) 60 mcg [id number] SQ ; Start 02/18/17 at 21:00 Active Scripts Active Novolog (Insulin Aspart) 100 Unit/1 Ml Cartridge 25 Unit SQ TID 30 Days Metolazone 2.5 Mg Tablet 2.5 Mg PO DAILY Flomax (Tamsulosin Hcl) 0.4 Mg Cap.er.24h 0.4 Mg PO DAILY Reported Trazodone Hcl 100 Mg Tablet 100 Mg PO HS Glipizide 10 Mg Tablet 1 Tab PO BID Spironolactone 25 Mg Tablet 1 Tab PO DAILY Multi-Day Vitamins (Multivitamin) 1 Each Tablet 1 Tab PO DAILY Vitamin D3 (Cholecalciferol (Vitamin D3)) 1,000 Unit Tablet 1 Tab PO DAILY Aspirin 325 Mg Tablet 1 Tab PO DAILY Bumetanide 2 Mg Tablet 1 Tab PO DAILY Lantus Solostar (Insulin Glargine,Hum.rec.anlog) 100 Unit/1 Ml Insuln.pen 75 Unit SQ QHS Clopidogrel (Clopidogrel Bisulfate) 75 Mg Tablet 1 Tab PO DAILY Vitals/I & O Vital Sign - Last 24 Hours 02/17/17 02/17/17 02/17/17 02/17/17 15:18 19:00 19:35 19:45 Temp 98.2 98.2 Pulse 91 Resp 18 B/P (MAP) 111/77 (88) Pulse Ox 95 93 95 O2 Delivery Nasal Cannula Nasal Cannula Nasal Cannula Nasal Cannula O2 Flow Rate 1.0 1.0 2.0 1.0 02/17/17 02/18/17 02/18/17 02/18/17 22:46 07:00 07:33 08:30 Temp 97.5 97.5 97.5 97.5 Pulse 79 101 Resp 18 22 B/P (MAP) 115/67 (83) 107/46 (66) Pulse Ox 91 89 92 O2 Delivery Nasal Cannula Nasal Cannula Nasal Cannula Nasal Cannula O2 Flow Rate 1.5 1.0 2.0 2.0 02/18/17 02/18/17 11:00 11:01 Temp 97.6 97.6 Pulse 96 Resp 24 B/P (MAP) 133/61 (85) Pulse Ox 92 95 O2 Delivery Nasal Cannula Nasal Cannula O2 Flow Rate 1.0 2.0 Intake and Output 02/17/17 02/17/17 02/18/17 15:00 23:00 07:00 Intake Total 120 ml 400 ml Output Total 200 ml Balance 120 ml -200 ml 400 ml MARYJANE SALCIDO III DO Feb 18, 2017 13:33
[2017-02-18 19:15] VITALS: BP 114/57
[2017-02-18] MEDS ORDERED: DARBEPOETIN ALFA 60 MCG/0.3 ML DISP.SYRIN. SQ SCH (21:00)
[2017-02-18] MEDS: traZODone 100 MG TABLET. PO SCH (21:10)
[2017-02-18] MEDS: INSULIN DETEMIR 300 UNITS/3 ML INSULN.PEN. SQ SCH (21:17)
[2017-02-18 22:44] VITALS: BP 97/55
[2017-02-19 02:28] VITALS: BP 108/50
[2017-02-19] MEDS: ALPRAZolam 1 MG TABLET PO PRN ×3 (02:29→17:35)
[2017-02-19 05:44] LABS: BASO # 0.1 x10^3/uL (0.0-0.2); BASO % 1 % (0-3); EOS % 8 % (0-3); HEMATOCRIT 27.2 % (39.0-53.0); HEMOGLOBIN 8.8 g/dL (13.0-17.5); LYMPH # 0.9 x10^3/uL (1.0-4.8); LYMPH % 9 % (24-48); MEAN CORPUSCULAR HEMOGLOBIN 28 pg (25-35); MEAN CORPUSCULAR HGB CONC 32 g/dL (31-37); MEAN CORPUSCULAR VOLUME 86 fL (79-100); MONO % 12 % (0-9); NEUT % 72 % (31-73); PLATELET COUNT 341 x10^3/uL (140-400); RED BLOOD COUNT 3.17 x10^6/uL (4.30-5.70); RED CELL DISTRIBUTION WIDTH 15.6 % (11.5-14.5); WHITE BLOOD COUNT 9.9 x10^3/uL (4.0-11.0)
[2017-02-19 06:06] LABS: CALCIUM 9.3 mg/dL (8.5-10.1); CREATININE 2.3 mg/dL (0.7-1.3); GFR 27.9; POTASSIUM 4.6 mmol/L (3.5-5.1)
[2017-02-19] MEDS: HEPARIN PF for SUB-Q USE 5,000 UNIT/0.5 ML VIAL. SQ SCH ×3 (06:17→21:20)
[2017-02-19 07:00] VITALS: BP 116/63
[2017-02-19] MEDS: IPRATRPIUM/ALBUTEROL 0.5/2.5MG 3 ML NEBU. NEB SCH ×4 (07:54→19:24)
[2017-02-19] MEDS: INSULIN ASPART 300 UNITS/3 ML INSULN.PEN SQ SCH ×6 (08:00→16:55)
[2017-02-19] MEDS: CHOLECALCIFEROL (VITAMIN D3) 1,000 UNIT TABLET PO SCH (09:22)
[2017-02-19] MEDS: ASPIRIN 325 MG TABLET PO SCH (09:23)
[2017-02-19] MEDS: CLOPIDOGREL BISULFATE 75 MG TABLET PO SCH (09:23)
[2017-02-19] MEDS: MULTIVITAMIN with MINERAL TABLET. PO SCH (09:23)
[2017-02-19] MEDS: DOCUSATE SODIUM 100 MG CAPSULE. PO PRN (09:23)
[2017-02-19] MEDS: TAMSULOSIN 0.4 MG CAP.ER.24H. PO SCH (09:23)
[2017-02-19] MEDS: glipiZIDE 5 MG TABLET PO SCH ×2 (09:24→16:49)
--- NOTE | 2017-02-19 09:45 | PDOC ---
PROGRESS NOTES Subjective Subjective Patient sitting up sleeping in chair this AM. He was difficult to awaken and was sleeping very heavily. RN reported that patient had a very busy night and got up/moved around, took a shower, and got dressed which could be contributing to his tiredness this morning. Patient stated for brief second that he felt fine before he fell back asleep. He received dialysis yesterday. Family member at side. Family and patient planning for d/c as soon as arrangements are made. No additional concerns at this time. Objective Objective Vital Signs Date Time Temp Pulse Resp B/P (MAP) Pulse Ox O2 Delivery O2 Flow Rate FiO2 02/19/17 07:55 96 Nasal Cannula 2.0 02/19/17 07:00 97.4 91 20 116/63 (80) 97.4 Intake and Output 02/19/17 07:00 Intake Total 760 ml Output Total 375 ml Balance 385 ml Intake Oral 760 ml Output Urine Total 375 ml Physical Exam COMMENT .Awake, alert, oriented In No Acute Distress Neck 1 cm JVD Lungs some basal rales b/l, mild wheezing R>L No changes in cardiac exam Extremities; slight improvement in edema. +2 pitting edema in LE b/l. Non- tender to palpation of LE b/l Assessment Assessment Problems Medical Problems: (1) CHF (congestive heart failure) Status: Acute Plan Plan of Care CHF- The patient's CHF remains unchanged. Continue Dialysis per nephrology. Continue cardiac monitoring and serial enzymes/EKG. Agree with plan to work with geriatric social worker in arranging patient transfer to SNU to undergo rehabilitation for a period of time. From a cardiac standpoint, patient is stable enough to be transfered to SNU today as soon as arrangements are made. Comment Review of Relevant I have reviewed the following items sukumar (where applicable) has been applied. Labs Laboratory Tests Test 02/17/17 11:08 02/17/17 16:40 02/17/17 20:39 02/18/17 03:20 Glucose (Fingerstick) 101 mg/dL (70-99) 158 mg/dL (70-99) 228 mg/dL (70-99) White Blood Count 9.4 x10^3/uL (4.0-11.0) Red Blood Count 3.39 x10^6/uL (4.30-5.70) Hemoglobin 9.7 g/dL (13.0-17.5) Hematocrit 29.1 % (39.0-53.0) Mean Corpuscular Volume 86 fL (79-100) Mean Corpuscular Hemoglobin 29 pg (25-35) Mean Corpuscular Hemoglobin Concent 33 g/dL (31-37) Red Cell Distribution Width 15.7 % (11.5-14.5) Platelet Count 385 x10^3/uL (140-400) Neutrophils (%) (Auto) 66 % (31-73) Lymphocytes (%) (Auto) 12 % (24-48) Monocytes (%) (Auto) 12 % (0-9) Eosinophils (%) (Auto) 10 % (0-3) Basophils (%) (Auto) 1 % (0-3) Neutrophils # (Auto) 6.2 x10^3uL (1.8-7.7) Lymphocytes # (Auto) 1.1 x10^3/uL (1.0-4.8) Monocytes # (Auto) 1.1 x10^3/uL (0.0-1.1) Eosinophils # (Auto) 0.9 x10^3/uL (0.0-0.7) Basophils # (Auto) 0.1 x10^3/uL (0.0-0.2) Sodium Level 129 mmol/L (136-145) Potassium Level 4.4 mmol/L (3.5-5.1) Chloride Level 92 mmol/L (98-107) Carbon Dioxide Level 28 mmol/L (21-32) Anion Gap 9 (6-14) Blood Urea Nitrogen 59 mg/dL (8-26) Creatinine 3.5 mg/dL (0.7-1.3) Estimated GFR (Cockcroft-Gault) 17.2 Glucose Level 220 mg/dL (70-99) Calcium Level 9.4 mg/dL (8.5-10.1) Phosphorus Level 5.5 mg/dL (2.6-4.7) Albumin 2.7 g/dL (3.4-5.0) Test 02/18/17 07:30 02/18/17 11:14 02/18/17 16:18 02/18/17 20:58 Glucose (Fingerstick) 195 mg/dL (70-99) 154 mg/dL (70-99) 59 mg/dL (70-99) 118 mg/dL (70-99) Test 02/19/17 04:55 02/19/17 04:57 02/19/17 07:38 White Blood Count 9.9 x10^3/uL (4.0-11.0) Red Blood Count 3.17 x10^6/uL (4.30-5.70) Hemoglobin 8.8 g/dL (13.0-17.5) Hematocrit 27.2 % (39.0-53.0) Mean Corpuscular Volume 86 fL (79-100) Mean Corpuscular Hemoglobin 28 pg (25-35) Mean Corpuscular Hemoglobin Concent 32 g/dL (31-37) Red Cell Distribution Width 15.6 % (11.5-14.5) Platelet Count 341 x10^3/uL (140-400) Neutrophils (%) (Auto) 72 % (31-73) Lymphocytes (%) (Auto) 9 % (24-48) Monocytes (%) (Auto) 12 % (0-9) Eosinophils (%) (Auto) 8 % (0-3) Basophils (%) (Auto) 1 % (0-3) Neutrophils # (Auto) 7.1 x10^3uL (1.8-7.7) Lymphocytes # (Auto) 0.9 x10^3/uL (1.0-4.8) Monocytes # (Auto) 1.1 x10^3/uL (0.0-1.1) Eosinophils # (Auto) 0.8 x10^3/uL (0.0-0.7) Basophils # (Auto) 0.1 x10^3/uL (0.0-0.2) Sodium Level 131 mmol/L (136-145) Potassium Level 4.6 mmol/L (3.5-5.1) Chloride Level 96 mmol/L (98-107) Carbon Dioxide Level 27 mmol/L (21-32) Anion Gap 8 (6-14) Blood Urea Nitrogen 38 mg/dL (8-26) Creatinine 2.3 mg/dL (0.7-1.3) Estimated GFR (Cockcroft-Gault) 27.9 Glucose Level 160 mg/dL (70-99) Calcium Level 9.3 mg/dL (8.5-10.1) Glucose (Fingerstick) 169 mg/dL (70-99) 154 mg/dL (70-99) Laboratory Tests Test 02/18/17 11:14 02/18/17 16:18 02/18/17 20:58 02/19/17 04:55 Glucose (Fingerstick) 154 mg/dL (70-99) 59 mg/dL (70-99) 118 mg/dL (70-99) White Blood Count 9.9 x10^3/uL (4.0-11.0) Red Blood Count 3.17 x10^6/uL (4.30-5.70) Hemoglobin 8.8 g/dL (13.0-17.5) Hematocrit 27.2 % (39.0-53.0) Mean Corpuscular Volume 86 fL (79-100) Mean Corpuscular Hemoglobin 28 pg (25-35) Mean Corpuscular Hemoglobin Concent 32 g/dL (31-37) Red Cell Distribution Width 15.6 % (11.5-14.5) Platelet Count 341 x10^3/uL (140-400) Neutrophils (%) (Auto) 72 % (31-73) Lymphocytes (%) (Auto) 9 % (24-48) Monocytes (%) (Auto) 12 % (0-9) Eosinophils (%) (Auto) 8 % (0-3) Basophils (%) (Auto) 1 % (0-3) Neutrophils # (Auto) 7.1 x10^3uL (1.8-7.7) Lymphocytes # (Auto) 0.9 x10^3/uL (1.0-4.8) Monocytes # (Auto) 1.1 x10^3/uL (0.0-1.1) Eosinophils # (Auto) 0.8 x10^3/uL (0.0-0.7) Basophils # (Auto) 0.1 x10^3/uL (0.0-0.2) Sodium Level 131 mmol/L (136-145) Potassium Level 4.6 mmol/L (3.5-5.1) Chloride Level 96 mmol/L (98-107) Carbon Dioxide Level 27 mmol/L (21-32) Anion Gap 8 (6-14) Blood Urea Nitrogen 38 mg/dL (8-26) Creatinine 2.3 mg/dL (0.7-1.3) Estimated GFR (Cockcroft-Gault) 27.9 Glucose Level 160 mg/dL (70-99) Calcium Level 9.3 mg/dL (8.5-10.1) Test 02/19/17 04:57 02/19/17 07:38 Glucose (Fingerstick) 169 mg/dL (70-99) 154 mg/dL (70-99) Microbiology 02/08/17 Urine Culture - Final, Complete 02/08/17 Urine Culture Result 1 (RIANNA) - Final, Complete Medications Current Medications Albuterol/ Ipratropium (Duoneb) 3 ml 1X ONCE NEB Last administered on 10:25; Start 02/08/17 at 09:30; Stop 02/08/17 at 09:38; Status DC Nitroglycerin (Nitro-Bid Oint) 1 inch 1X ONCE TP Last administered on 09:45; Start 02/08/17 at 09:30; Stop 02/08/17 at 09:38; Status DC Furosemide (Lasix) 40 mg 1X ONCE IVP Last administered on 02/08/17 09:45; Start 02/08/17 at 09:30; Stop 02/08/17 at 09:38; Status DC Ondansetron HCl (Zofran) 4 mg PRN Q8HRS PRN IV NAUSEA/VOMITING; Start at 11:30; Stop 02/09/17 at 11:29; Status DC Furosemide 100 mg/ Sodium Chloride 100 ml @ 0 mls/hr CONT PRN IV PER PROTOCOL Last administered on 02/12/17 08:37; Start 02/08/17 at 11:30; Stop 02/12/17 at 09:53; Status DC Aspirin (Bhavya Aspirin) 325 mg DAILY PO Last administered on 02/19/17 09:23; Start 02/09/17 at 09:00 Vitamin D (Vitamin D3) 1,000 unit DAILY PO Last administered on 02/19/17 09: 22; Start 02/09/17 at 09:00 Clopidogrel Bisulfate (Plavix) 75 mg DAILY PO Last administered on 02/19/17 09:23; Start 02/09/17 at 09:00 Metolazone (Zaroxolyn) 2.5 mg DAILY PO ; Start 02/09/17 at 09:00; Stop at 09:00; Status DC Spironolactone (Aldactone) 25 mg DAILY PO ; Start 02/09/17 at 09:00; Stop at 13:33; Status DC Tamsulosin HCl (Flomax) 0.4 mg DAILY PO Last administered on 02/19/17 09:23; Start 02/09/17 at 09:00 Trazodone HCl (Desyrel) 100 mg HS PO Last administered on 02/18/17 21:10; Start 02/08/17 at 21:00 Non-Formulary Medication 1 tab DAILY PO ; Start 02/09/17 at 09:00; Stop at 09:00; Status DC Glipizide (Glucotrol) 10 mg BIDBFRMEAL PO Last administered on 02/19/17 09:24 ; Start 02/09/17 at 17:00 Insulin Aspart (NovoLOG) 20 units TIDAC SQ Last administered on 02/19/17 09: 32; Start 02/08/17 at 16:30 Insulin Detemir (Levemir) 60 units QHS SQ Last administered on 02/18/17 21:17 ; Start 02/08/17 at 21:00 Multivitamins (Thera M Plus) 1 tab DAILY PO Last administered on 02/19/17 09: 23; Start 02/09/17 at 09:00 Acetaminophen (Tylenol) 650 mg PRN Q6HRS PRN PO FEVER; Start 02/08/17 at 16:30 Ondansetron HCl (Zofran) 4 mg PRN Q6HRS PRN IV NAUSEA/VOMITING; Start at 16:30 Morphine Sulfate 2 mg PRN Q2HR PRN IV PAIN; Start 02/08/17 at 16:30 Tramadol HCl (Ultram) 50 mg PRN Q6HRS PRN PO PAIN Last administered on 21:24; Start 02/08/17 at 16:30 Hydralazine HCl (Apresoline Inj) 10 mg PRN Q4HRS PRN IVP ELEVATED BP, SEE COMMENTS; Start 02/08/17 at 16:30 Docusate Sodium (Colace) 100 mg PRN DAILY PRN PO CONSTIPATION Last administered on 02/19/17 09:23; Start 02/08/17 at 16:30 Insulin Aspart (NovoLOG) 0-9 UNITS TIDWMEALS SQ Last administered on 08:12; Start 02/08/17 at 17:00 Dextrose (Dextrose 50%-Water Syringe) 12.5 gm PRN Q15MIN PRN IV SEE COMMENTS; Start 02/08/17 at 16:30 Albuterol Sulfate (Ventolin Neb Soln) 2.5 mg PRN Q4HRS PRN NEB SHORTNESS OF BREATH Last administered on 02/10/17 04:31; Start 02/08/17 at 16:30 Albuterol/ Ipratropium (Duoneb) 3 ml RTQID NEB Last administered on 02/19/17 07:54; Start 02/08/17 at 17:00 Heparin Sodium (Porcine) (Heparin Sq) 5,000 unit Q8HRS SQ Last administered on 02/19/17 06:17; Start 02/08/17 at 22:00 Alprazolam (Xanax) 0.25 mg PRN BID PRN PO ANXIETY / AGITATION Last administered on 02/08/17 17:52; Start 02/08/17 at 17:15; Stop 02/08/17 at 19 :44; Status DC Ceftriaxone Sodium 50 ml @ 100 mls/hr DAILY IV ; Start 02/09/17 at 09:00; Status UNV Alprazolam (Xanax) 0.5 mg PRN Q6HRS PRN PO ANXIETY / AGITATION Last administered on 02/09/17 08:43; Start 02/08/17 at 19:45; Stop 02/09/17 at 10 :55; Status DC Ceftriaxone Sodium (Rocephin) 1 gm Q24H IVP Last administered on 02/10/17 21: 24; Start 02/08/17 at 20:00; Stop 02/11/17 at 15:00; Status DC Potassium Chloride (Klor-Con) 40 meq 1X ONCE PO Last administered on 08:43; Start 02/09/17 at 08:15; Stop 02/09/17 at 08:16; Status DC Potassium Chloride (Klor-Con) 40 meq 1X ONCE PO Last administered on 12:23; Start 02/09/17 at 12:00; Stop 02/09/17 at 12:01; Status DC Dobutamine HCl/ Dextrose 250 ml @ 0 mls/hr CONT PRN IV SEE I/O RECORD Last administered on 02/11/17 19:43; Start 02/09/17 at 08:15; Stop 02/12/17 at 09 :53; Status DC Alprazolam (Xanax) 0.25 mg PRN Q6HRS PRN PO ANXIETY / AGITATION Last administered on 02/12/17 09:30; Start 02/09/17 at 11:00; Stop 02/12/17 at 13 :09; Status DC Potassium Chloride (Klor-Con) 40 meq PRN Q4HRS PRN PO for K < 4.0 Last administered on 02/09/17 22:13; Start 02/09/17 at 11:15 Albumin Human 100 ml @ 100 mls/hr 1X ONCE IV Last administered on 02/10/17 12:00; Start 02/10/17 at 12:00; Stop 02/10/17 at 12:59; Status DC Albumin Human 100 ml @ 100 mls/hr 1X ONCE IV Last administered on 02/10/17 21:23; Start 02/10/17 at 20:00; Stop 02/10/17 at 20:59; Status DC Magnesium Sulfate/ Dextrose 50 ml @ 25 mls/hr PRN DAILY PRN IV for Mag < 1.7 on am labs; Start 02/11/17 at 11:30 Cefpodoxime Proxetil (Vantin) 100 mg BID PO Last administered on 02/14/17 08: 24; Start 02/11/17 at 21:00; Stop 02/14/17 at 11:12; Status DC Heparin Sodium/ Sodium Chloride 1,000 unit 1X ONCE IART Last administered on 02/12/17 13:18; Start 02/12/17 at 13:00; Stop 02/12/17 at 13:05; Status DC Midazolam HCl (Versed) 2 mg 1X ONCE IV Last administered on 02/12/17 13:20; Start 02/12/17 at 13:00; Stop 02/12/17 at 13:05; Status DC Fentanyl Citrate (Fentanyl 2ml Vial) 100 mcg 1X ONCE IV Last administered on 02/12/17 13:20; Start 02/12/17 at 13:00; Stop 02/12/17 at 13:05; Status DC Lidocaine/ Epinephrine (Xylocaine 1%-Epi 1:100,000) 20 ml 1X ONCE IJ Last administered on 02/12/17 13:21; Start 02/12/17 at 13:00; Stop 02/12/17 at 13 :05; Status DC Heparin Sodium (Porcine) (Heparin Sodium) 3,800 unit 1X ONCE INT CAT Last administered on 02/12/17 13:20; Start 02/12/17 at 13:00; Stop 02/12/17 at 13 :05; Status DC Cefazolin Sodium/ Dextrose 50 ml @ 100 mls/hr 1X ONCE IV Last administered on 02/12/17 13:21; Start 02/12/17 at 13:00; Stop 02/12/17 at 13:29; Status DC Alprazolam (Xanax) 1 mg PRN Q6HRS PRN PO ANXIETY / AGITATION Last administered on 02/19/17 09:24; Start 02/12/17 at 13:15 Sodium Chloride 1,000 ml @ 1,000 mls/hr Q1H PRN IV hypotension; Start at 18:54; Stop 02/13/17 at 00:53; Status DC Sodium Chloride 1,000 ml @ 400 mls/hr Q2H30M PRN IV PATENCY; Start 02/12/17 at 18:54; Stop 02/13/17 at 06:53; Status DC Info (PHARMACY MONITORING -- do not chart) 1 each PRN DAILY PRN MC SEE COMMENTS ; Start 02/12/17 at 19:00; Stop 02/14/17 at 11:07; Status DC Sodium Chloride 1,000 ml @ 1,000 mls/hr Q1H PRN IV hypotension; Start at 13:21; Stop 02/13/17 at 19:20; Status DC Info (PHARMACY MONITORING -- do not chart) 1 each PRN DAILY PRN MC SEE COMMENTS ; Start 02/13/17 at 13:30 Cefpodoxime Proxetil (Vantin) 100 mg QHS PO Last administered on 02/15/17 20: 47; Start 02/14/17 at 21:00; Stop 02/16/17 at 14:02; Status DC Sodium Chloride 1,000 ml @ 1,000 mls/hr Q1H PRN IV hypotension; Start at 07:46; Stop 02/15/17 at 13:45; Status DC Sodium Chloride (Normal Saline Flush) 10 ml 1X PRN PRN IV AP catheter pack; Start 02/15/17 at 08:00; Stop 02/16/17 at 07:59; Status DC Sodium Chloride (Normal Saline Flush) 10 ml 1X PRN PRN IV MAGAZINE FILLER catheter pack; Start 02/15/17 at 08:00; Stop 02/16/17 at 07:59; Status DC Sodium Chloride 1,000 ml @ 400 mls/hr Q2H30M PRN IV PATENCY; Start 02/15/17 at 07:46; Stop 02/15/17 at 19:45; Status DC Info (PHARMACY MONITORING -- do not chart) 1 each PRN DAILY PRN MC SEE COMMENTS ; Start 02/15/17 at 08:00; Status UNV Info (PHARMACY MONITORING -- do not chart) 1 each PRN DAILY PRN MC SEE COMMENTS ; Start 02/15/17 at 08:00; Status UNV Sodium Chloride 1,000 ml @ 60 mls/hr [id number] IV Last administered on 18:39; Start 02/15/17 at 19:00; Stop 02/17/17 at 17:44; Status DC Polyethylene Glycol (miraLAX PACKET) 17 gm PRN DAILY PRN PO CONSTIPATION Last administered on 02/19/17 09:22; Start 02/17/17 at 14:45 Sodium Chloride 1,000 ml @ 1,000 mls/hr Q1H PRN IV hypotension; Start at 08:50; Stop 02/18/17 at 14:49; Status DC Acetaminophen (Tylenol) 500 mg 1X PRN PRN PO MILD PAIN / TEMP; Start 02/18/17 at 09:00; Stop 02/19/17 at 08:59; Status DC Diphenhydramine HCl (Benadryl) 25 mg 1X PRN PRN IV ITCHING; Start 02/18/17 at 09:00; Stop 02/19/17 at 08:59; Status DC Diphenhydramine HCl (Benadryl) 25 mg 1X PRN PRN IV ITCHING; Start 02/18/17 at 09:00; Stop 02/19/17 at 08:59; Status DC Sodium Chloride 1,000 ml @ 400 mls/hr Q2H30M PRN IV PATENCY; Start 02/18/17 at 08:50; Stop 02/18/17 at 20:49; Status DC Info (PHARMACY MONITORING -- do not chart) 1 each PRN DAILY PRN MC SEE COMMENTS ; Start 02/18/17 at 09:00; Stop 02/18/17 at 09:00; Status DC Info (PHARMACY MONITORING -- do not chart) 1 each PRN DAILY PRN MC SEE COMMENTS ; Start 02/18/17 at 09:00; Status UNV Fentanyl Citrate (Fentanyl 2ml Vial) 100 mcg STK-MED ONCE .ROUTE ; Start at 12:14; Stop 02/18/17 at 10:41; Status DC Midazolam HCl (Versed) 2 mg STK-MED ONCE .ROUTE ; Start 02/12/17 at 12:14; Stop 02/18/17 at 10:41; Status DC Lidocaine/ Epinephrine (Xylocaine 1%-Epi 1:100,000) 20 ml STK-MED ONCE .ROUTE ; Start 02/12/17 at 12:14; Stop 02/18/17 at 10:41; Status DC Heparin Sodium (Porcine) (Heparin Sodium) 10,000 unit STK-MED ONCE .ROUTE ; Start 02/12/17 at 12:14; Stop 02/18/17 at 10:41; Status DC Heparin Sodium/ Sodium Chloride 500 ml @ As Directed STK-MED ONCE .ROUTE ; Start 02/12/17 at 12:14; Stop 02/18/17 at 10:41; Status DC Darbepoetin [place] (Aranesp) 60 mcg [id number] SQ Last administered on 02/18/17t 21:10; Start 02/18/17 at 21:00 Active Scripts Active Novolog (Insulin Aspart) 100 Unit/1 Ml Cartridge 25 Unit SQ TID 30 Days Metolazone 2.5 Mg Tablet 2.5 Mg PO DAILY Flomax (Tamsulosin Hcl) 0.4 Mg Cap.er.24h 0.4 Mg PO DAILY Reported Trazodone Hcl 100 Mg Tablet 100 Mg PO HS Glipizide 10 Mg Tablet 1 Tab PO BID Spironolactone 25 Mg Tablet 1 Tab PO DAILY Multi-Day Vitamins (Multivitamin) 1 Each Tablet 1 Tab PO DAILY Vitamin D3 (Cholecalciferol (Vitamin D3)) 1,000 Unit Tablet 1 Tab PO DAILY Aspirin 325 Mg Tablet 1 Tab PO DAILY Bumetanide 2 Mg Tablet 1 Tab PO DAILY Lantus Solostar (Insulin Glargine,Hum.rec.anlog) 100 Unit/1 Ml Insuln.pen 75 Unit SQ QHS Clopidogrel (Clopidogrel Bisulfate) 75 Mg Tablet 1 Tab PO DAILY Vitals/I & O Vital Sign - Last 24 Hours 02/18/17 02/18/17 02/18/17 02/18/17 11:00 11:01 16:30 19:15 Temp 97.6 98.2 97.6 98.2 Pulse 96 92 Resp 24 20 B/P (MAP) 133/61 (85) 114/57 (76) Pulse Ox 92 95 91 O2 Delivery Nasal Cannula Nasal Cannula Nasal Cannula Nasal Cannula O2 Flow Rate 1.0 2.0 2.0 2.0 02/18/17 02/18/17 02/18/17 02/19/17 19:34 19:55 22:44 02:28 Temp 98.4 97.7 98.4 97.7 Pulse 103 97 Resp 18 22 B/P (MAP) 97/55 (69) 108/50 (69) Pulse Ox 95 93 94 O2 Delivery Nasal Cannula Nasal Cannula Nasal Cannula Nasal Cannula O2 Flow Rate 2.0 2.0 2.0 2.0 02/19/17 02/19/17 07:00 07:55 Temp 97.4 97.4 Pulse 91 Resp 20 B/P (MAP) 116/63 (80) Pulse Ox 96 96 O2 Delivery Nasal Cannula Nasal Cannula O2 Flow Rate 2.0 2.0 Intake and Output 02/18/17 02/18/17 02/19/17 15:00 23:00 07:00 Intake Total 200 ml 440 ml 120 ml Output Total 250 ml 125 ml Balance 200 ml 190 ml -5 ml OKSANA JOSEPH MD Feb 19, 2017 09:45
--- NOTE | 2017-02-19 09:56 | PDOC ---
Subjective: Subjective: I looked at his breakfast tray - "Don't look at that. It's hog slop." RN has already asked for toast and cereal to be brought up in place of pancakes , eggs, and sausage which apparently he doesn't like. Says abd feels okay. Says he hasn't stooled in >1 week and would like MoM. "At times" feels urge to stool. Objective: Objective: Awaiting insurance approval for PP. Vital Signs: Vital Signs Date Time Temp Pulse Resp B/P (MAP) Pulse Ox O2 Delivery O2 Flow Rate FiO2 02/19/17 07:55 96 Nasal Cannula 2.0 02/19/17 07:00 97.4 91 20 116/63 (80) 97.4 Labs: Laboratory Tests Test 02/18/17 11:14 02/18/17 16:18 02/18/17 20:58 02/19/17 04:55 Glucose (Fingerstick) 154 mg/dL 59 mg/dL 118 mg/dL White Blood Count 9.9 x10^3/uL Red Blood Count 3.17 x10^6/uL Hemoglobin 8.8 g/dL Hematocrit 27.2 % Mean Corpuscular Volume 86 fL Mean Corpuscular Hemoglobin 28 pg Mean Corpuscular Hemoglobin Concent 32 g/dL Red Cell Distribution Width 15.6 % Platelet Count 341 x10^3/uL Neutrophils (%) (Auto) 72 % Lymphocytes (%) (Auto) 9 % Monocytes (%) (Auto) 12 % Eosinophils (%) (Auto) 8 % Basophils (%) (Auto) 1 % Neutrophils # (Auto) 7.1 x10^3uL Lymphocytes # (Auto) 0.9 x10^3/uL Monocytes # (Auto) 1.1 x10^3/uL Eosinophils # (Auto) 0.8 x10^3/uL Basophils # (Auto) 0.1 x10^3/uL Sodium Level 131 mmol/L Potassium Level 4.6 mmol/L Chloride Level 96 mmol/L Carbon Dioxide Level 27 mmol/L Anion Gap 8 Blood Urea Nitrogen 38 mg/dL Creatinine 2.3 mg/dL Estimated GFR (Cockcroft-Gault) 27.9 Glucose Level 160 mg/dL Calcium Level 9.3 mg/dL Test 02/19/17 04:57 02/19/17 07:38 Glucose (Fingerstick) 169 mg/dL 154 mg/dL PE: GEN: NAD, up to chair LUNGS: nasal cannula HEART: tachy ABD: BS+, some distention NEURO/PSYCH: A & O 3, grouchy A/P: CHF ESRD on HD Anemia (on Plavix and ASA) ?cirrhosis (w/o ascites on imaging) Constipation -- Doesn't like the food here. Increase Miralax, try MoM x1. Await DC plans. KENAN REICH Feb 19, 2017 09:56
[2017-02-19] MEDS ORDERED: BISACODYL 5 MG TABLET.DR. PO PRN (10:00)
[2017-02-19] MEDS: POLYETHYLENE GLYCOL 3350 17 GM PACKET. PO SCH ×2 (10:00→21:00)
[2017-02-19] MEDS ORDERED: MAGNESIUM HYDROXIDE 2,400 MG/30 ML ORAL.SUSP. PO ONE (10:15)
--- NOTE | 2017-02-19 10:22 | PDOC ---
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 Vitals Vitals Vital Signs Date Time Temp Pulse Resp B/P (MAP) Pulse Ox O2 Delivery O2 Flow Rate FiO2 02/19/17 07:55 96 Nasal Cannula 2.0 02/19/17 07:00 97.4 91 20 116/63 (80) 97.4 Physical Exam General: Alert, Oriented X3, Cooperative, No acute distress Heart: Regular rate, Normal S1, Normal S2 Lungs: Clear, Other (No RRW) Abdomen: Normal bowel sounds, Soft, No tenderness Extremities: No clubbing, No cyanosis Skin: No rashes, No breakdown, Other (open lesion on right castellanos) Labs LABS Laboratory Tests Test 02/18/17 11:14 02/18/17 16:18 02/18/17 20:58 02/19/17 04:55 Glucose (Fingerstick) 154 mg/dL (70-99) 59 mg/dL (70-99) 118 mg/dL (70-99) White Blood Count 9.9 x10^3/uL (4.0-11.0) Red Blood Count 3.17 x10^6/uL (4.30-5.70) Hemoglobin 8.8 g/dL (13.0-17.5) Hematocrit 27.2 % (39.0-53.0) Mean Corpuscular Volume 86 fL (79-100) Mean Corpuscular Hemoglobin 28 pg (25-35) Mean Corpuscular Hemoglobin Concent 32 g/dL (31-37) Red Cell Distribution Width 15.6 % (11.5-14.5) Platelet Count 341 x10^3/uL (140-400) Neutrophils (%) (Auto) 72 % (31-73) Lymphocytes (%) (Auto) 9 % (24-48) Monocytes (%) (Auto) 12 % (0-9) Eosinophils (%) (Auto) 8 % (0-3) Basophils (%) (Auto) 1 % (0-3) Neutrophils # (Auto) 7.1 x10^3uL (1.8-7.7) Lymphocytes # (Auto) 0.9 x10^3/uL (1.0-4.8) Monocytes # (Auto) 1.1 x10^3/uL (0.0-1.1) Eosinophils # (Auto) 0.8 x10^3/uL (0.0-0.7) Basophils # (Auto) 0.1 x10^3/uL (0.0-0.2) Sodium Level 131 mmol/L (136-145) Potassium Level 4.6 mmol/L (3.5-5.1) Chloride Level 96 mmol/L (98-107) Carbon Dioxide Level 27 mmol/L (21-32) Anion Gap 8 (6-14) Blood Urea Nitrogen 38 mg/dL (8-26) Creatinine 2.3 mg/dL (0.7-1.3) Estimated GFR (Cockcroft-Gault) 27.9 Glucose Level 160 mg/dL (70-99) Calcium Level 9.3 mg/dL (8.5-10.1) Test 02/19/17 04:57 02/19/17 07:38 Glucose (Fingerstick) 169 mg/dL (70-99) 154 mg/dL (70-99) Review of Systems Review of Systems General: Admits Loss of Appetite, No fever Assessment and Plan Assessmemt and Plan Assessment: Acute hypoxia Acute on chronic systolic CHF exacerbation COPD DM2 HTN History of CAD with CABG Anxiety 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 Labs Laboratory Tests Test 02/17/17 11:08 02/17/17 16:40 02/17/17 20:39 02/18/17 03:20 Glucose (Fingerstick) 101 mg/dL (70-99) 158 mg/dL (70-99) 228 mg/dL (70-99) White Blood Count 9.4 x10^3/uL (4.0-11.0) Red Blood Count 3.39 x10^6/uL (4.30-5.70) Hemoglobin 9.7 g/dL (13.0-17.5) Hematocrit 29.1 % (39.0-53.0) Mean Corpuscular Volume 86 fL (79-100) Mean Corpuscular Hemoglobin 29 pg (25-35) Mean Corpuscular Hemoglobin Concent 33 g/dL (31-37) Red Cell Distribution Width 15.7 % (11.5-14.5) Platelet Count 385 x10^3/uL (140-400) Neutrophils (%) (Auto) 66 % (31-73) Lymphocytes (%) (Auto) 12 % (24-48) Monocytes (%) (Auto) 12 % (0-9) Eosinophils (%) (Auto) 10 % (0-3) Basophils (%) (Auto) 1 % (0-3) Neutrophils # (Auto) 6.2 x10^3uL (1.8-7.7) Lymphocytes # (Auto) 1.1 x10^3/uL (1.0-4.8) Monocytes # (Auto) 1.1 x10^3/uL (0.0-1.1) Eosinophils # (Auto) 0.9 x10^3/uL (0.0-0.7) Basophils # (Auto) 0.1 x10^3/uL (0.0-0.2) Sodium Level 129 mmol/L (136-145) Potassium Level 4.4 mmol/L (3.5-5.1) Chloride Level 92 mmol/L (98-107) Carbon Dioxide Level 28 mmol/L (21-32) Anion Gap 9 (6-14) Blood Urea Nitrogen 59 mg/dL (8-26) Creatinine 3.5 mg/dL (0.7-1.3) Estimated GFR (Cockcroft-Gault) 17.2 Glucose Level 220 mg/dL (70-99) Calcium Level 9.4 mg/dL (8.5-10.1) Phosphorus Level 5.5 mg/dL (2.6-4.7) Albumin 2.7 g/dL (3.4-5.0) Test 02/18/17 07:30 02/18/17 11:14 02/18/17 16:18 02/18/17 20:58 Glucose (Fingerstick) 195 mg/dL (70-99) 154 mg/dL (70-99) 59 mg/dL (70-99) 118 mg/dL (70-99) Test 02/19/17 04:55 02/19/17 04:57 02/19/17 07:38 White Blood Count 9.9 x10^3/uL (4.0-11.0) Red Blood Count 3.17 x10^6/uL (4.30-5.70) Hemoglobin 8.8 g/dL (13.0-17.5) Hematocrit 27.2 % (39.0-53.0) Mean Corpuscular Volume 86 fL (79-100) Mean Corpuscular Hemoglobin 28 pg (25-35) Mean Corpuscular Hemoglobin Concent 32 g/dL (31-37) Red Cell Distribution Width 15.6 % (11.5-14.5) Platelet Count 341 x10^3/uL (140-400) Neutrophils (%) (Auto) 72 % (31-73) Lymphocytes (%) (Auto) 9 % (24-48) Monocytes (%) (Auto) 12 % (0-9) Eosinophils (%) (Auto) 8 % (0-3) Basophils (%) (Auto) 1 % (0-3) Neutrophils # (Auto) 7.1 x10^3uL (1.8-7.7) Lymphocytes # (Auto) 0.9 x10^3/uL (1.0-4.8) Monocytes # (Auto) 1.1 x10^3/uL (0.0-1.1) Eosinophils # (Auto) 0.8 x10^3/uL (0.0-0.7) Basophils # (Auto) 0.1 x10^3/uL (0.0-0.2) Sodium Level 131 mmol/L (136-145) Potassium Level 4.6 mmol/L (3.5-5.1) Chloride Level 96 mmol/L (98-107) Carbon Dioxide Level 27 mmol/L (21-32) Anion Gap 8 (6-14) Blood Urea Nitrogen 38 mg/dL (8-26) Creatinine 2.3 mg/dL (0.7-1.3) Estimated GFR (Cockcroft-Gault) 27.9 Glucose Level 160 mg/dL (70-99) Calcium Level 9.3 mg/dL (8.5-10.1) Glucose (Fingerstick) 169 mg/dL (70-99) 154 mg/dL (70-99) Laboratory Tests Test 02/18/17 11:14 02/18/17 16:18 02/18/17 20:58 02/19/17 04:55 Glucose (Fingerstick) 154 mg/dL (70-99) 59 mg/dL (70-99) 118 mg/dL (70-99) White Blood Count 9.9 x10^3/uL (4.0-11.0) Red Blood Count 3.17 x10^6/uL (4.30-5.70) Hemoglobin 8.8 g/dL (13.0-17.5) Hematocrit 27.2 % (39.0-53.0) Mean Corpuscular Volume 86 fL (79-100) Mean Corpuscular Hemoglobin 28 pg (25-35) Mean Corpuscular Hemoglobin Concent 32 g/dL (31-37) Red Cell Distribution Width 15.6 % (11.5-14.5) Platelet Count 341 x10^3/uL (140-400) Neutrophils (%) (Auto) 72 % (31-73) Lymphocytes (%) (Auto) 9 % (24-48) Monocytes (%) (Auto) 12 % (0-9) Eosinophils (%) (Auto) 8 % (0-3) Basophils (%) (Auto) 1 % (0-3) Neutrophils # (Auto) 7.1 x10^3uL (1.8-7.7) Lymphocytes # (Auto) 0.9 x10^3/uL (1.0-4.8) Monocytes # (Auto) 1.1 x10^3/uL (0.0-1.1) Eosinophils # (Auto) 0.8 x10^3/uL (0.0-0.7) Basophils # (Auto) 0.1 x10^3/uL (0.0-0.2) Sodium Level 131 mmol/L (136-145) Potassium Level 4.6 mmol/L (3.5-5.1) Chloride Level 96 mmol/L (98-107) Carbon Dioxide Level 27 mmol/L (21-32) Anion Gap 8 (6-14) Blood Urea Nitrogen 38 mg/dL (8-26) Creatinine 2.3 mg/dL (0.7-1.3) Estimated GFR (Cockcroft-Gault) 27.9 Glucose Level 160 mg/dL (70-99) Calcium Level 9.3 mg/dL (8.5-10.1) Test 02/19/17 04:57 02/19/17 07:38 Glucose (Fingerstick) 169 mg/dL (70-99) 154 mg/dL (70-99) Microbiology 02/08/17 Urine Culture - Final, Complete 02/08/17 Urine Culture Result 1 (RIANNA) - Final, Complete Medications Current Medications Albuterol/ Ipratropium (Duoneb) 3 ml 1X ONCE NEB Last administered on 10:25; Start 02/08/17 at 09:30; Stop 02/08/17 at 09:38; Status DC Nitroglycerin (Nitro-Bid Oint) 1 inch 1X ONCE TP Last administered on 09:45; Start 02/08/17 at 09:30; Stop 02/08/17 at 09:38; Status DC Furosemide (Lasix) 40 mg 1X ONCE IVP Last administered on 02/08/17 09:45; Start 02/08/17 at 09:30; Stop 02/08/17 at 09:38; Status DC Ondansetron HCl (Zofran) 4 mg PRN Q8HRS PRN IV NAUSEA/VOMITING; Start at 11:30; Stop 02/09/17 at 11:29; Status DC Furosemide 100 mg/ Sodium Chloride 100 ml @ 0 mls/hr CONT PRN IV PER PROTOCOL Last administered on 02/12/17 08:37; Start 02/08/17 at 11:30; Stop 02/12/17 at 09:53; Status DC Aspirin (Bhavya Aspirin) 325 mg DAILY PO Last administered on 02/19/17 09:23; Start 02/09/17 at 09:00 Vitamin D (Vitamin D3) 1,000 unit DAILY PO Last administered on 02/19/17 09: 22; Start 02/09/17 at 09:00 Clopidogrel Bisulfate (Plavix) 75 mg DAILY PO Last administered on 02/19/17 09:23; Start 02/09/17 at 09:00 Metolazone (Zaroxolyn) 2.5 mg DAILY PO ; Start 02/09/17 at 09:00; Stop at 09:00; Status DC Spironolactone (Aldactone) 25 mg DAILY PO ; Start 02/09/17 at 09:00; Stop at 13:33; Status DC Tamsulosin HCl (Flomax) 0.4 mg DAILY PO Last administered on 02/19/17 09:23; Start 02/09/17 at 09:00 Trazodone HCl (Desyrel) 100 mg HS PO Last administered on 02/18/17 21:10; Start 02/08/17 at 21:00 Non-Formulary Medication 1 tab DAILY PO ; Start 02/09/17 at 09:00; Stop at 09:00; Status DC Glipizide (Glucotrol) 10 mg BIDBFRMEAL PO Last administered on 02/19/17 09:24 ; Start 02/09/17 at 17:00 Insulin Aspart (NovoLOG) 20 units TIDAC SQ Last administered on 02/19/17 09: 32; Start 02/08/17 at 16:30 Insulin Detemir (Levemir) 60 units QHS SQ Last administered on 02/18/17 21:17 ; Start 02/08/17 at 21:00 Multivitamins (Thera M Plus) 1 tab DAILY PO Last administered on 02/19/17 09: 23; Start 02/09/17 at 09:00 Acetaminophen (Tylenol) 650 mg PRN Q6HRS PRN PO FEVER; Start 02/08/17 at 16:30 Ondansetron HCl (Zofran) 4 mg PRN Q6HRS PRN IV NAUSEA/VOMITING; Start at 16:30 Morphine Sulfate 2 mg PRN Q2HR PRN IV PAIN; Start 02/08/17 at 16:30 Tramadol HCl (Ultram) 50 mg PRN Q6HRS PRN PO PAIN Last administered on 21:24; Start 02/08/17 at 16:30 Hydralazine HCl (Apresoline Inj) 10 mg PRN Q4HRS PRN IVP ELEVATED BP, SEE COMMENTS; Start 02/08/17 at 16:30 Docusate Sodium (Colace) 100 mg PRN DAILY PRN PO CONSTIPATION Last administered on 02/19/17 09:23; Start 02/08/17 at 16:30 Insulin Aspart (NovoLOG) 0-9 UNITS TIDWMEALS SQ Last administered on 08:12; Start 02/08/17 at 17:00 Dextrose (Dextrose 50%-Water Syringe) 12.5 gm PRN Q15MIN PRN IV SEE COMMENTS; Start 02/08/17 at 16:30 Albuterol Sulfate (Ventolin Neb Soln) 2.5 mg PRN Q4HRS PRN NEB SHORTNESS OF BREATH Last administered on 02/10/17 04:31; Start 02/08/17 at 16:30 Albuterol/ Ipratropium (Duoneb) 3 ml RTQID NEB Last administered on 02/19/17 07:54; Start 02/08/17 at 17:00 Heparin Sodium (Porcine) (Heparin Sq) 5,000 unit Q8HRS SQ Last administered on 02/19/17 06:17; Start 02/08/17 at 22:00 Alprazolam (Xanax) 0.25 mg PRN BID PRN PO ANXIETY / AGITATION Last administered on 02/08/17 17:52; Start 02/08/17 at 17:15; Stop 02/08/17 at 19 :44; Status DC Ceftriaxone Sodium 50 ml @ 100 mls/hr DAILY IV ; Start 02/09/17 at 09:00; Status UNV Alprazolam (Xanax) 0.5 mg PRN Q6HRS PRN PO ANXIETY / AGITATION Last administered on 02/09/17 08:43; Start 02/08/17 at 19:45; Stop 02/09/17 at 10 :55; Status DC Ceftriaxone Sodium (Rocephin) 1 gm Q24H IVP Last administered on 02/10/17 21: 24; Start 02/08/17 at 20:00; Stop 02/11/17 at 15:00; Status DC Potassium Chloride (Klor-Con) 40 meq 1X ONCE PO Last administered on 08:43; Start 02/09/17 at 08:15; Stop 02/09/17 at 08:16; Status DC Potassium Chloride (Klor-Con) 40 meq 1X ONCE PO Last administered on 12:23; Start 02/09/17 at 12:00; Stop 02/09/17 at 12:01; Status DC Dobutamine HCl/ Dextrose 250 ml @ 0 mls/hr CONT PRN IV SEE I/O RECORD Last administered on 02/11/17 19:43; Start 02/09/17 at 08:15; Stop 02/12/17 at 09 :53; Status DC Alprazolam (Xanax) 0.25 mg PRN Q6HRS PRN PO ANXIETY / AGITATION Last administered on 02/12/17 09:30; Start 02/09/17 at 11:00; Stop 02/12/17 at 13 :09; Status DC Potassium Chloride (Klor-Con) 40 meq PRN Q4HRS PRN PO for K < 4.0 Last administered on 02/09/17 22:13; Start 02/09/17 at 11:15 Albumin Human 100 ml @ 100 mls/hr 1X ONCE IV Last administered on 02/10/17 12:00; Start 02/10/17 at 12:00; Stop 02/10/17 at 12:59; Status DC Albumin Human 100 ml @ 100 mls/hr 1X ONCE IV Last administered on 02/10/17 21:23; Start 02/10/17 at 20:00; Stop 02/10/17 at 20:59; Status DC Magnesium Sulfate/ Dextrose 50 ml @ 25 mls/hr PRN DAILY PRN IV for Mag < 1.7 on am labs; Start 02/11/17 at 11:30 Cefpodoxime Proxetil (Vantin) 100 mg BID PO Last administered on 02/14/17 08: 24; Start 02/11/17 at 21:00; Stop 02/14/17 at 11:12; Status DC Heparin Sodium/ Sodium Chloride 1,000 unit 1X ONCE IART Last administered on 02/12/17 13:18; Start 02/12/17 at 13:00; Stop 02/12/17 at 13:05; Status DC Midazolam HCl (Versed) 2 mg 1X ONCE IV Last administered on 02/12/17 13:20; Start 02/12/17 at 13:00; Stop 02/12/17 at 13:05; Status DC Fentanyl Citrate (Fentanyl 2ml Vial) 100 mcg 1X ONCE IV Last administered on 02/12/17 13:20; Start 02/12/17 at 13:00; Stop 02/12/17 at 13:05; Status DC Lidocaine/ Epinephrine (Xylocaine 1%-Epi 1:100,000) 20 ml 1X ONCE IJ Last administered on 02/12/17 13:21; Start 02/12/17 at 13:00; Stop 02/12/17 at 13 :05; Status DC Heparin Sodium (Porcine) (Heparin Sodium) 3,800 unit 1X ONCE INT CAT Last administered on 02/12/17 13:20; Start 02/12/17 at 13:00; Stop 02/12/17 at 13 :05; Status DC Cefazolin Sodium/ Dextrose 50 ml @ 100 mls/hr 1X ONCE IV Last administered on 02/12/17 13:21; Start 02/12/17 at 13:00; Stop 02/12/17 at 13:29; Status DC Alprazolam (Xanax) 1 mg PRN Q6HRS PRN PO ANXIETY / AGITATION Last administered on 02/19/17 09:24; Start 02/12/17 at 13:15 Sodium Chloride 1,000 ml @ 1,000 mls/hr Q1H PRN IV hypotension; Start at 18:54; Stop 02/13/17 at 00:53; Status DC Sodium Chloride 1,000 ml @ 400 mls/hr Q2H30M PRN IV PATENCY; Start 02/12/17 at 18:54; Stop 02/13/17 at 06:53; Status DC Info (PHARMACY MONITORING -- do not chart) 1 each PRN DAILY PRN MC SEE COMMENTS ; Start 02/12/17 at 19:00; Stop 02/14/17 at 11:07; Status DC Sodium Chloride 1,000 ml @ 1,000 mls/hr Q1H PRN IV hypotension; Start at 13:21; Stop 02/13/17 at 19:20; Status DC Info (PHARMACY MONITORING -- do not chart) 1 each PRN DAILY PRN MC SEE COMMENTS ; Start 02/13/17 at 13:30 Cefpodoxime Proxetil (Vantin) 100 mg QHS PO Last administered on 02/15/17 20: 47; Start 02/14/17 at 21:00; Stop 02/16/17 at 14:02; Status DC Sodium Chloride 1,000 ml @ 1,000 mls/hr Q1H PRN IV hypotension; Start at 07:46; Stop 02/15/17 at 13:45; Status DC Sodium Chloride (Normal Saline Flush) 10 ml 1X PRN PRN IV AP catheter pack; Start 02/15/17 at 08:00; Stop 02/16/17 at 07:59; Status DC Sodium Chloride (Normal Saline Flush) 10 ml 1X PRN PRN IV NOU[employer]ACHINE catheter pack; Start 02/15/17 at 08:00; Stop 02/16/17 at 07:59; Status DC Sodium Chloride 1,000 ml @ 400 mls/hr Q2H30M PRN IV PATENCY; Start 02/15/17 at 07:46; Stop 02/15/17 at 19:45; Status DC Info (PHARMACY MONITORING -- do not chart) 1 each PRN DAILY PRN MC SEE COMMENTS ; Start 02/15/17 at 08:00; Status UNV Info (PHARMACY MONITORING -- do not chart) 1 each PRN DAILY PRN MC SEE COMMENTS ; Start 02/15/17 at 08:00; Status UNV Sodium Chloride 1,000 ml @ 60 mls/hr [id number] IV Last administered on 18:39; Start 02/15/17 at 19:00; Stop 02/17/17 at 17:44; Status DC Polyethylene Glycol (miraLAX PACKET) 17 gm PRN DAILY PRN PO CONSTIPATION Last administered on 02/19/17 09:22; Start 02/17/17 at 14:45; Stop 02/19/17 at 09 :56; Status DC Sodium Chloride 1,000 ml @ 1,000 mls/hr Q1H PRN IV hypotension; Start at 08:50; Stop 02/18/17 at 14:49; Status DC Acetaminophen (Tylenol) 500 mg 1X PRN PRN PO MILD PAIN / TEMP; Start 02/18/17 at 09:00; Stop 02/19/17 at 08:59; Status DC Diphenhydramine HCl (Benadryl) 25 mg 1X PRN PRN IV ITCHING; Start 02/18/17 at 09:00; Stop 02/19/17 at 08:59; Status DC Diphenhydramine HCl (Benadryl) 25 mg 1X PRN PRN IV ITCHING; Start 02/18/17 at 09:00; Stop 02/19/17 at 08:59; Status DC Sodium Chloride 1,000 ml @ 400 mls/hr Q2H30M PRN IV PATENCY; Start 02/18/17 at 08:50; Stop 02/18/17 at 20:49; Status DC Info (PHARMACY MONITORING -- do not chart) 1 each PRN DAILY PRN MC SEE COMMENTS ; Start 02/18/17 at 09:00; Stop 02/18/17 at 09:00; Status DC Info (PHARMACY MONITORING -- do not chart) 1 each PRN DAILY PRN MC SEE COMMENTS ; Start 02/18/17 at 09:00; Status UNV Fentanyl Citrate (Fentanyl 2ml Vial) 100 mcg STK-MED ONCE .ROUTE ; Start at 12:14; Stop 02/18/17 at 10:41; Status DC Midazolam HCl (Versed) 2 mg STK-MED ONCE .ROUTE ; Start 02/12/17 at 12:14; Stop 02/18/17 at 10:41; Status DC Lidocaine/ Epinephrine (Xylocaine 1%-Epi 1:100,000) 20 ml STK-MED ONCE .ROUTE ; Start 02/12/17 at 12:14; Stop 02/18/17 at 10:41; Status DC Heparin Sodium (Porcine) (Heparin Sodium) 10,000 unit STK-MED ONCE .ROUTE ; Start 02/12/17 at 12:14; Stop 02/18/17 at 10:41; Status DC Heparin Sodium/ Sodium Chloride 500 ml @ As Directed STK-MED ONCE .ROUTE ; Start 02/12/17 at 12:14; Stop 02/18/17 at 10:41; Status DC Darbepoetin Dedrick (Aranesp) 60 mcg [id number] SQ Last administered on 02/18/17t 21:10; Start 02/18/17 at 21:00 Polyethylene Glycol (miraLAX PACKET) 17 gm BID PO ; Start 02/19/17 at 10:00 Magnesium Hydroxide (Milk Of Magnesia) 2,400 mg 1X ONCE PO ; Start 02/19/17 at 10:15; Stop 02/19/17 at 10:16 Bisacodyl (Dulcolax Tab) 5 mg PRN DAILY PRN PO CONSTIPATION; Start 02/19/17 at 10:00 Active Scripts Active Novolog (Insulin Aspart) 100 Unit/1 Ml Cartridge 25 Unit SQ TID 30 Days Metolazone 2.5 Mg Tablet 2.5 Mg PO DAILY Flomax (Tamsulosin Hcl) 0.4 Mg Cap.er.24h 0.4 Mg PO DAILY Reported Trazodone Hcl 100 Mg Tablet 100 Mg PO HS Glipizide 10 Mg Tablet 1 Tab PO BID Spironolactone 25 Mg Tablet 1 Tab PO DAILY Multi-Day Vitamins (Multivitamin) 1 Each Tablet 1 Tab PO DAILY Vitamin D3 (Cholecalciferol (Vitamin D3)) 1,000 Unit Tablet 1 Tab PO DAILY Aspirin 325 Mg Tablet 1 Tab PO DAILY Bumetanide 2 Mg Tablet 1 Tab PO DAILY Lantus Solostar (Insulin Glargine,Hum.rec.anlog) 100 Unit/1 Ml Insuln.pen 75 Unit SQ QHS Clopidogrel (Clopidogrel Bisulfate) 75 Mg Tablet 1 Tab PO DAILY Vitals/I & O Vital Sign - Last 24 Hours 02/18/17 02/18/17 02/18/17 02/18/17 11:00 11:01 16:30 19:15 Temp 97.6 98.2 97.6 98.2 Pulse 96 92 Resp 24 20 B/P (MAP) 133/61 (85) 114/57 (76) Pulse Ox 92 95 91 O2 Delivery Nasal Cannula Nasal Cannula Nasal Cannula Nasal Cannula O2 Flow Rate 1.0 2.0 2.0 2.0 02/18/17 02/18/17 02/18/17 02/19/17 19:34 19:55 22:44 02:28 Temp 98.4 97.7 98.4 97.7 Pulse 103 97 Resp 18 22 B/P (MAP) 97/55 (69) 108/50 (69) Pulse Ox 95 93 94 O2 Delivery Nasal Cannula Nasal Cannula Nasal Cannula Nasal Cannula O2 Flow Rate 2.0 2.0 2.0 2.0 02/19/17 02/19/17 07:00 07:55 Temp 97.4 97.4 Pulse 91 Resp 20 B/P (MAP) 116/63 (80) Pulse Ox 96 96 O2 Delivery Nasal Cannula Nasal Cannula O2 Flow Rate 2.0 2.0 Intake and Output 02/18/17 02/18/17 02/19/17 15:00 23:00 07:00 Intake Total 200 ml 440 ml 120 ml Output Total 250 ml 125 ml Balance 200 ml 190 ml -5 ml MARYJANE SALCIDO III DO Feb 19, 2017 10:22
[2017-02-19 10:59] VITALS: BP 120/60
--- NOTE | 2017-02-19 11:49 | PDOC ---
Renal-Progress Notes Subjective Notes Notes NONE History of Present Illness Hx of present illness STABLE Vitals Vitals Vital Signs Date Time Temp Pulse Resp B/P (MAP) Pulse Ox O2 Delivery O2 Flow Rate FiO2 02/19/17 11:29 94 Nasal Cannula 2.0 02/19/17 10:59 97.3 64 20 120/60 (80) 97.3 Weight Weight [ ] I.O. Intake and Output Intake and Output 02/19/17 07:00 Intake Total 760 ml Output Total 375 ml Balance 385 ml Intake Oral 760 ml Output Urine Total 375 ml Labs Labs Laboratory Tests Test 02/18/17 16:18 02/18/17 20:58 02/19/17 04:55 02/19/17 04:57 Glucose (Fingerstick) 59 mg/dL (70-99) 118 mg/dL (70-99) 169 mg/dL (70-99) White Blood Count 9.9 x10^3/uL (4.0-11.0) Red Blood Count 3.17 x10^6/uL (4.30-5.70) Hemoglobin 8.8 g/dL (13.0-17.5) Hematocrit 27.2 % (39.0-53.0) Mean Corpuscular Volume 86 fL (79-100) Mean Corpuscular Hemoglobin 28 pg (25-35) Mean Corpuscular Hemoglobin Concent 32 g/dL (31-37) Red Cell Distribution Width 15.6 % (11.5-14.5) Platelet Count 341 x10^3/uL (140-400) Neutrophils (%) (Auto) 72 % (31-73) Lymphocytes (%) (Auto) 9 % (24-48) Monocytes (%) (Auto) 12 % (0-9) Eosinophils (%) (Auto) 8 % (0-3) Basophils (%) (Auto) 1 % (0-3) Neutrophils # (Auto) 7.1 x10^3uL (1.8-7.7) Lymphocytes # (Auto) 0.9 x10^3/uL (1.0-4.8) Monocytes # (Auto) 1.1 x10^3/uL (0.0-1.1) Eosinophils # (Auto) 0.8 x10^3/uL (0.0-0.7) Basophils # (Auto) 0.1 x10^3/uL (0.0-0.2) Sodium Level 131 mmol/L (136-145) Potassium Level 4.6 mmol/L (3.5-5.1) Chloride Level 96 mmol/L (98-107) Carbon Dioxide Level 27 mmol/L (21-32) Anion Gap 8 (6-14) Blood Urea Nitrogen 38 mg/dL (8-26) Creatinine 2.3 mg/dL (0.7-1.3) Estimated GFR (Cockcroft-Gault) 27.9 Glucose Level 160 mg/dL (70-99) Calcium Level 9.3 mg/dL (8.5-10.1) Test 02/19/17 07:38 Glucose (Fingerstick) 154 mg/dL (70-99) Micro Micro Microbiology 02/08/17 Urine Culture - Final, Complete 02/08/17 Urine Culture Result 1 (RIANNA) - Final, Complete Review of Systems Constitutional: yes: weakness, alert, oriented Ears/Nose/Throat: Yes: no symptom reported Eyes: Yes: no symptom reported Pulmonary: Yes dyspnea Cardiovascular: Yes edema Genitourinary: Yes: other (OLIGURIA) Musculoskeletal: Yes: muscle stiffness Skin: Yes no symptom reported Psychiatric/Neurological: Yes: no symptom reported Endocrine: Yes: no symptom reported Hematologic/Lymphatic: Yes: no symptom reported Physical Exam General Appearance: no apparent distress Skin: warm Respiratory: decreased breath sounds Abdomen: soft, bowel sounds present Genitourinary: bladder flat Extremities: pulses present, edema Neurology: alert, oriented Assessment Assessment IMP ESRD ANEMIA LE EDEMA CHF PLAN HD TOMORROW CONT KVNG OP HD HAS BEEN SET UP FOR MWF D/C 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
--- NOTE | 2017-02-19 14:49 | PDOC2 ---
PALLIATIVE CARE Palliative Care Note Palliative Care Consult requested by Dr. Mendiola to address goals of care. Information obtained from medical record, patient and his . Diagnosis: on admission. acute resp failure with hypoxia acute on chronic systolic CHF exacerbation EF 25% PPM COPD DM2 ON insulin htn h/o CAD with CABG anxiety liliane on CKD 3-4 mild malnutrition hyponatremia with CHF morbid obesity Patient alert and oriented. Sitting up in chair. Reviewed above medical condition. States his goal is to get stronger and go home. Wants to get to [facility] so he can start rehab. Understands he has a weak heart and kidney failure. Reviewed other medical issues with and patient. Discussed Code Status; Patient requests DNR/DNI. Understands that without this attempt likely he would . Patient would like to complete AD. Will ask [facility] for assistance. Above reviewed with Kyle AMIN. Will call Dr. Mendiola for orders. Plan: DNR/DNI per request of patient. in agreement. Reviewed with May GROVE who will assist with AD Continue current treatment plan for PP to get stronger. Will meet with patient and in am to discuss any further questions. J CARLOS FIGUEROA Feb 19, 2017 14:49
[2017-02-19 15:00] VITALS: BP 128/62
[2017-02-19] MEDS: traMADol 50 MG TABLET PO PRN (16:49)
[2017-02-19 19:57] VITALS: BP 90/51
[2017-02-19] MEDS: traZODone 100 MG TABLET. PO SCH (21:15)
[2017-02-19] MEDS: INSULIN DETEMIR 300 UNITS/3 ML INSULN.PEN. SQ SCH (21:19)
[2017-02-19 23:00] VITALS: BP 116/50
[2017-02-20 03:00] VITALS: BP 87/56
[2017-02-20 06:02] LABS: HEMATOCRIT 29.3 % (39.0-53.0); HEMOGLOBIN 9.3 g/dL (13.0-17.5); RED BLOOD COUNT 3.43 x10^6/uL (4.30-5.70); RED CELL DISTRIBUTION WIDTH 15.5 % (11.5-14.5); WHITE BLOOD COUNT 13.1 x10^3/uL (4.0-11.0)
[2017-02-20] MEDS: HEPARIN PF for SUB-Q USE 5,000 UNIT/0.5 ML VIAL. SQ SCH ×2 (06:11→14:00)
[2017-02-20 06:14] LABS: CALCIUM 9.3 mg/dL (8.5-10.1); CREATININE 3.2 mg/dL (0.7-1.3); POTASSIUM 4.7 mmol/L (3.5-5.1)
[2017-02-20 07:00] VITALS: BP 117/56
[2017-02-20] MEDS: INSULIN ASPART 300 UNITS/3 ML INSULN.PEN SQ SCH ×4 (07:30→12:00)
[2017-02-20] MEDS: IPRATRPIUM/ALBUTEROL 0.5/2.5MG 3 ML NEBU. NEB SCH ×2 (07:50→11:55)
[2017-02-20] MEDS ORDERED: IV NORMAL SALINE 1000ML BAG 1,000 ML IV PRN (08:17)
[2017-02-20] MEDS ORDERED: diphenhydrAMINE 50 MG/ML VIAL IV PRN ×2 (08:30)
[2017-02-20] MEDS ORDERED: ALBUMIN HUMAN 25% 200 ML IV PRN (08:30)
[2017-02-20] MEDS ORDERED: DIALYSIS PATIENT. MC PRN ×2 (08:30)
[2017-02-20] MEDS ORDERED: ACETAMINOPHEN 500 MG TABLET PO PRN (08:30)
[2017-02-20] MEDS: ALPRAZolam 1 MG TABLET PO PRN ×2 (08:38→14:00)
--- NOTE | 2017-02-20 09:08 | PDOC ---
PROGRESS NOTES Subjective Subjective Patient in dialysis this AM. Family and patient planning for d/c to [facility] today or tomorrow once approved by insurance. Patient understanding of his current condition and now wishes to be DNR/DNI. No additional concerns at this time. Objective Objective Vital Signs Date Time Temp Pulse Resp B/P (MAP) Pulse Ox O2 Delivery O2 Flow Rate FiO2 02/20/17 08:00 Nasal Cannula 2.0 02/20/17 07:51 91 02/20/17 07:00 97.6 94 19 117/56 (76) 97.6 Intake and Output 02/20/17 07:00 Intake Total 1585 ml Output Total 175 ml Balance 1410 ml Intake Oral 1585 ml Output Urine Total 175 ml # Bowel Movements 3 Physical Exam COMMENT Awake, alert, oriented In No Acute Distress Neck 1 cm JVD Lungs some basal rales b/l, mild wheezing b/l S1,S2, No murmurs/gallops/rubs. No changes in cardiac exam Extremities; minimal improvement in edema. +2 pitting edema in LE b/l Assessment Assessment Problems Medical Problems: (1) CHF (congestive heart failure) Status: Acute Plan Plan of Care CHF- The patient's CHF remains unchanged. Continue Dialysis per nephrology. Continue cardiac monitoring and serial enzymes/EKG. From a cardiac standpoint, patient is stable enough to be transferred to SNU today or as soon as arrangements are made. SW following, plan to transfer patient to [facility] residential [facility] rehab once approved by [facility]. AD discussed and patient now wishes to be a DNR /DNI. Palliative care consulted regarding patients long-term goals. Comment Review of Relevant I have reviewed the following items sukumar (where applicable) has been applied. Labs Laboratory Tests Test 02/18/17 11:14 02/18/17 16:18 02/18/17 20:58 02/19/17 04:55 Glucose (Fingerstick) 154 mg/dL (70-99) 59 mg/dL (70-99) 118 mg/dL (70-99) White Blood Count 9.9 x10^3/uL (4.0-11.0) Red Blood Count 3.17 x10^6/uL (4.30-5.70) Hemoglobin 8.8 g/dL (13.0-17.5) Hematocrit 27.2 % (39.0-53.0) Mean Corpuscular Volume 86 fL (79-100) Mean Corpuscular Hemoglobin 28 pg (25-35) Mean Corpuscular Hemoglobin Concent 32 g/dL (31-37) Red Cell Distribution Width 15.6 % (11.5-14.5) Platelet Count 341 x10^3/uL (140-400) Neutrophils (%) (Auto) 72 % (31-73) Lymphocytes (%) (Auto) 9 % (24-48) Monocytes (%) (Auto) 12 % (0-9) Eosinophils (%) (Auto) 8 % (0-3) Basophils (%) (Auto) 1 % (0-3) Neutrophils # (Auto) 7.1 x10^3uL (1.8-7.7) Lymphocytes # (Auto) 0.9 x10^3/uL (1.0-4.8) Monocytes # (Auto) 1.1 x10^3/uL (0.0-1.1) Eosinophils # (Auto) 0.8 x10^3/uL (0.0-0.7) Basophils # (Auto) 0.1 x10^3/uL (0.0-0.2) Sodium Level 131 mmol/L (136-145) Potassium Level 4.6 mmol/L (3.5-5.1) Chloride Level 96 mmol/L (98-107) Carbon Dioxide Level 27 mmol/L (21-32) Anion Gap 8 (6-14) Blood Urea Nitrogen 38 mg/dL (8-26) Creatinine 2.3 mg/dL (0.7-1.3) Estimated GFR (Cockcroft-Gault) 27.9 Glucose Level 160 mg/dL (70-99) Calcium Level 9.3 mg/dL (8.5-10.1) Test 02/19/17 04:57 02/19/17 07:38 02/19/17 11:47 02/19/17 16:47 Glucose (Fingerstick) 169 mg/dL (70-99) 154 mg/dL (70-99) 110 mg/dL (70-99) 255 mg/dL (70-99) Test 02/19/17 21:11 02/20/17 05:10 Glucose (Fingerstick) 128 mg/dL (70-99) White Blood Count 13.1 x10^3/uL (4.0-11.0) Red Blood Count 3.43 x10^6/uL (4.30-5.70) Hemoglobin 9.3 g/dL (13.0-17.5) Hematocrit 29.3 % (39.0-53.0) Mean Corpuscular Volume 85 fL (79-100) Mean Corpuscular Hemoglobin 27 pg (25-35) Mean Corpuscular Hemoglobin Concent 32 g/dL (31-37) Red Cell Distribution Width 15.5 % (11.5-14.5) Platelet Count 419 x10^3/uL (140-400) Sodium Level 130 mmol/L (136-145) Potassium Level 4.7 mmol/L (3.5-5.1) Chloride Level 94 mmol/L (98-107) Carbon Dioxide Level 28 mmol/L (21-32) Anion Gap 8 (6-14) Blood Urea Nitrogen 49 mg/dL (8-26) Creatinine 3.2 mg/dL (0.7-1.3) Estimated GFR (Cockcroft-Gault) 19.0 Glucose Level 103 mg/dL (70-99) Calcium Level 9.3 mg/dL (8.5-10.1) Laboratory Tests Test 02/19/17 11:47 02/19/17 16:47 02/19/17 21:11 02/20/17 05:10 Glucose (Fingerstick) 110 mg/dL (70-99) 255 mg/dL (70-99) 128 mg/dL (70-99) White Blood Count 13.1 x10^3/uL (4.0-11.0) Red Blood Count 3.43 x10^6/uL (4.30-5.70) Hemoglobin 9.3 g/dL (13.0-17.5) Hematocrit 29.3 % (39.0-53.0) Mean Corpuscular Volume 85 fL (79-100) Mean Corpuscular Hemoglobin 27 pg (25-35) Mean Corpuscular Hemoglobin Concent 32 g/dL (31-37) Red Cell Distribution Width 15.5 % (11.5-14.5) Platelet Count 419 x10^3/uL (140-400) Sodium Level 130 mmol/L (136-145) Potassium Level 4.7 mmol/L (3.5-5.1) Chloride Level 94 mmol/L (98-107) Carbon Dioxide Level 28 mmol/L (21-32) Anion Gap 8 (6-14) Blood Urea Nitrogen 49 mg/dL (8-26) Creatinine 3.2 mg/dL (0.7-1.3) Estimated GFR (Cockcroft-Gault) 19.0 Glucose Level 103 mg/dL (70-99) Calcium Level 9.3 mg/dL (8.5-10.1) Microbiology 02/08/17 Urine Culture - Final, Complete 02/08/17 Urine Culture Result 1 (RIANNA) - Final, Complete Medications Current Medications Albuterol/ Ipratropium (Duoneb) 3 ml 1X ONCE NEB Last administered on 10:25; Start 02/08/17 at 09:30; Stop 02/08/17 at 09:38; Status DC Nitroglycerin (Nitro-Bid Oint) 1 inch 1X ONCE TP Last administered on 09:45; Start 02/08/17 at 09:30; Stop 02/08/17 at 09:38; Status DC Furosemide (Lasix) 40 mg 1X ONCE IVP Last administered on 02/08/17 09:45; Start 02/08/17 at 09:30; Stop 02/08/17 at 09:38; Status DC Ondansetron HCl (Zofran) 4 mg PRN Q8HRS PRN IV NAUSEA/VOMITING; Start at 11:30; Stop 02/09/17 at 11:29; Status DC Furosemide 100 mg/ Sodium Chloride 100 ml @ 0 mls/hr CONT PRN IV PER PROTOCOL Last administered on 02/12/17 08:37; Start 02/08/17 at 11:30; Stop 02/12/17 at 09:53; Status DC Aspirin (Bhavya Aspirin) 325 mg DAILY PO Last administered on 02/19/17 09:23; Start 02/09/17 at 09:00 Vitamin D (Vitamin D3) 1,000 unit DAILY PO Last administered on 02/19/17 09: 22; Start 02/09/17 at 09:00 Clopidogrel Bisulfate (Plavix) 75 mg DAILY PO Last administered on 02/19/17 09:23; Start 02/09/17 at 09:00 Metolazone (Zaroxolyn) 2.5 mg DAILY PO ; Start 02/09/17 at 09:00; Stop at 09:00; Status DC Spironolactone (Aldactone) 25 mg DAILY PO ; Start 02/09/17 at 09:00; Stop at 13:33; Status DC Tamsulosin HCl (Flomax) 0.4 mg DAILY PO Last administered on 02/19/17 09:23; Start 02/09/17 at 09:00 Trazodone HCl (Desyrel) 100 mg HS PO Last administered on 02/19/17 21:15; Start 02/08/17 at 21:00 Non-Formulary Medication 1 tab DAILY PO ; Start 02/09/17 at 09:00; Stop at 09:00; Status DC Glipizide (Glucotrol) 10 mg BIDBFRMEAL PO Last administered on 02/19/17 16:49 ; Start 02/09/17 at 17:00 Insulin Aspart (NovoLOG) 20 units TIDAC SQ Last administered on 02/19/17 16: 55; Start 02/08/17 at 16:30 Insulin Detemir (Levemir) 60 units QHS SQ Last administered on 02/19/17 21:19 ; Start 02/08/17 at 21:00 Multivitamins (Thera M Plus) 1 tab DAILY PO Last administered on 02/19/17 09: 23; Start 02/09/17 at 09:00 Acetaminophen (Tylenol) 650 mg PRN Q6HRS PRN PO FEVER; Start 02/08/17 at 16:30 Ondansetron HCl (Zofran) 4 mg PRN Q6HRS PRN IV NAUSEA/VOMITING; Start at 16:30 Morphine Sulfate 2 mg PRN Q2HR PRN IV PAIN; Start 02/08/17 at 16:30 Tramadol HCl (Ultram) 50 mg PRN Q6HRS PRN PO PAIN Last administered on 16:49; Start 02/08/17 at 16:30 Hydralazine HCl (Apresoline Inj) 10 mg PRN Q4HRS PRN IVP ELEVATED BP, SEE COMMENTS; Start 02/08/17 at 16:30 Docusate Sodium (Colace) 100 mg PRN DAILY PRN PO CONSTIPATION Last administered on 02/19/17 09:23; Start 02/08/17 at 16:30 Insulin Aspart (NovoLOG) 0-9 UNITS TIDWMEALS SQ Last administered on 16:55; Start 02/08/17 at 17:00 Dextrose (Dextrose 50%-Water Syringe) 12.5 gm PRN Q15MIN PRN IV SEE COMMENTS; Start 02/08/17 at 16:30 Albuterol Sulfate (Ventolin Neb Soln) 2.5 mg PRN Q4HRS PRN NEB SHORTNESS OF BREATH Last administered on 02/10/17 04:31; Start 02/08/17 at 16:30 Albuterol/ Ipratropium (Duoneb) 3 ml RTQID NEB Last administered on 02/20/17 07:50; Start 02/08/17 at 17:00 Heparin Sodium (Porcine) (Heparin Sq) 5,000 unit Q8HRS SQ Last administered on 02/20/17 06:11; Start 02/08/17 at 22:00 Alprazolam (Xanax) 0.25 mg PRN BID PRN PO ANXIETY / AGITATION Last administered on 02/08/17 17:52; Start 02/08/17 at 17:15; Stop 02/08/17 at 19 :44; Status DC Ceftriaxone Sodium 50 ml @ 100 mls/hr DAILY IV ; Start 02/09/17 at 09:00; Status UNV Alprazolam (Xanax) 0.5 mg PRN Q6HRS PRN PO ANXIETY / AGITATION Last administered on 02/09/17 08:43; Start 02/08/17 at 19:45; Stop 02/09/17 at 10 :55; Status DC Ceftriaxone Sodium (Rocephin) 1 gm Q24H IVP Last administered on 02/10/17 21: 24; Start 02/08/17 at 20:00; Stop 02/11/17 at 15:00; Status DC Potassium Chloride (Klor-Con) 40 meq 1X ONCE PO Last administered on 08:43; Start 02/09/17 at 08:15; Stop 02/09/17 at 08:16; Status DC Potassium Chloride (Klor-Con) 40 meq 1X ONCE PO Last administered on 12:23; Start 02/09/17 at 12:00; Stop 02/09/17 at 12:01; Status DC Dobutamine HCl/ Dextrose 250 ml @ 0 mls/hr CONT PRN IV SEE I/O RECORD Last administered on 02/11/17 19:43; Start 02/09/17 at 08:15; Stop 02/12/17 at 09 :53; Status DC Alprazolam (Xanax) 0.25 mg PRN Q6HRS PRN PO ANXIETY / AGITATION Last administered on 02/12/17 09:30; Start 02/09/17 at 11:00; Stop 02/12/17 at 13 :09; Status DC Potassium Chloride (Klor-Con) 40 meq PRN Q4HRS PRN PO for K < 4.0 Last administered on 02/09/17 22:13; Start 02/09/17 at 11:15 Albumin Human 100 ml @ 100 mls/hr 1X ONCE IV Last administered on 02/10/17 12:00; Start 02/10/17 at 12:00; Stop 02/10/17 at 12:59; Status DC Albumin Human 100 ml @ 100 mls/hr 1X ONCE IV Last administered on 02/10/17 21:23; Start 02/10/17 at 20:00; Stop 02/10/17 at 20:59; Status DC Magnesium Sulfate/ Dextrose 50 ml @ 25 mls/hr PRN DAILY PRN IV for Mag < 1.7 on am labs; Start 02/11/17 at 11:30 Cefpodoxime Proxetil (Vantin) 100 mg BID PO Last administered on 02/14/17 08: 24; Start 02/11/17 at 21:00; Stop 02/14/17 at 11:12; Status DC Heparin Sodium/ Sodium Chloride 1,000 unit 1X ONCE IART Last administered on 02/12/17 13:18; Start 02/12/17 at 13:00; Stop 02/12/17 at 13:05; Status DC Midazolam HCl (Versed) 2 mg 1X ONCE IV Last administered on 02/12/17 13:20; Start 02/12/17 at 13:00; Stop 02/12/17 at 13:05; Status DC Fentanyl Citrate (Fentanyl 2ml Vial) 100 mcg 1X ONCE IV Last administered on 02/12/17 13:20; Start 02/12/17 at 13:00; Stop 02/12/17 at 13:05; Status DC Lidocaine/ Epinephrine (Xylocaine 1%-Epi 1:100,000) 20 ml 1X ONCE IJ Last administered on 02/12/17 13:21; Start 02/12/17 at 13:00; Stop 02/12/17 at 13 :05; Status DC Heparin Sodium (Porcine) (Heparin Sodium) 3,800 unit 1X ONCE INT CAT Last administered on 02/12/17 13:20; Start 02/12/17 at 13:00; Stop 02/12/17 at 13 :05; Status DC Cefazolin Sodium/ Dextrose 50 ml @ 100 mls/hr 1X ONCE IV Last administered on 02/12/17 13:21; Start 02/12/17 at 13:00; Stop 02/12/17 at 13:29; Status DC Alprazolam (Xanax) 1 mg PRN Q6HRS PRN PO ANXIETY / AGITATION Last administered on 02/20/17 08:38; Start 02/12/17 at 13:15 Sodium Chloride 1,000 ml @ 1,000 mls/hr Q1H PRN IV hypotension; Start at 18:54; Stop 02/13/17 at 00:53; Status DC Sodium Chloride 1,000 ml @ 400 mls/hr Q2H30M PRN IV PATENCY; Start 02/12/17 at 18:54; Stop 02/13/17 at 06:53; Status DC Info (PHARMACY MONITORING -- do not chart) 1 each PRN DAILY PRN MC SEE COMMENTS ; Start 02/12/17 at 19:00; Stop 02/14/17 at 11:07; Status DC Sodium Chloride 1,000 ml @ 1,000 mls/hr Q1H PRN IV hypotension; Start at 13:21; Stop 02/13/17 at 19:20; Status DC Info (PHARMACY MONITORING -- do not chart) 1 each PRN DAILY PRN MC SEE COMMENTS ; Start 02/13/17 at 13:30 Cefpodoxime Proxetil (Vantin) 100 mg QHS PO Last administered on 02/15/17 20: 47; Start 02/14/17 at 21:00; Stop 02/16/17 at 14:02; Status DC Sodium Chloride 1,000 ml @ 1,000 mls/hr Q1H PRN IV hypotension; Start at 07:46; Stop 02/15/17 at 13:45; Status DC Sodium Chloride (Normal Saline Flush) 10 ml 1X PRN PRN IV AP catheter pack; Start 02/15/17 at 08:00; Stop 02/16/17 at 07:59; Status DC Sodium Chloride (Normal Saline Flush) 10 ml 1X PRN PRN IV [employer] catheter pack; Start 02/15/17 at 08:00; Stop 02/16/17 at 07:59; Status DC Sodium Chloride 1,000 ml @ 400 mls/hr Q2H30M PRN IV PATENCY; Start 02/15/17 at 07:46; Stop 02/15/17 at 19:45; Status DC Info (PHARMACY MONITORING -- do not chart) 1 each PRN DAILY PRN MC SEE COMMENTS ; Start 02/15/17 at 08:00; Status UNV Info (PHARMACY MONITORING -- do not chart) 1 each PRN DAILY PRN MC SEE COMMENTS ; Start 02/15/17 at 08:00; Status UNV Sodium Chloride 1,000 ml @ 60 mls/hr [id number] IV Last administered on 18:39; Start 02/15/17 at 19:00; Stop 02/17/17 at 17:44; Status DC Polyethylene Glycol (miraLAX PACKET) 17 gm PRN DAILY PRN PO CONSTIPATION Last administered on 02/19/17 09:22; Start 02/17/17 at 14:45; Stop 02/19/17 at 09 :56; Status DC Sodium Chloride 1,000 ml @ 1,000 mls/hr Q1H PRN IV hypotension; Start at 08:50; Stop 02/18/17 at 14:49; Status DC Acetaminophen (Tylenol) 500 mg 1X PRN PRN PO MILD PAIN / TEMP; Start 02/18/17 at 09:00; Stop 02/19/17 at 08:59; Status DC Diphenhydramine HCl (Benadryl) 25 mg 1X PRN PRN IV ITCHING; Start 02/18/17 at 09:00; Stop 02/19/17 at 08:59; Status DC Diphenhydramine HCl (Benadryl) 25 mg 1X PRN PRN IV ITCHING; Start 02/18/17 at 09:00; Stop 02/19/17 at 08:59; Status DC Sodium Chloride 1,000 ml @ 400 mls/hr Q2H30M PRN IV PATENCY; Start 02/18/17 at 08:50; Stop 02/18/17 at 20:49; Status DC Info (PHARMACY MONITORING -- do not chart) 1 each PRN DAILY PRN MC SEE COMMENTS ; Start 02/18/17 at 09:00; Stop 02/18/17 at 09:00; Status DC Info (PHARMACY MONITORING -- do not chart) 1 each PRN DAILY PRN MC SEE COMMENTS ; Start 02/18/17 at 09:00; Status UNV Fentanyl Citrate (Fentanyl 2ml Vial) 100 mcg STK-MED ONCE .ROUTE ; Start at 12:14; Stop 02/18/17 at 10:41; Status DC Midazolam HCl (Versed) 2 mg STK-MED ONCE .ROUTE ; Start 02/12/17 at 12:14; Stop 02/18/17 at 10:41; Status DC Lidocaine/ Epinephrine (Xylocaine 1%-Epi 1:100,000) 20 ml STK-MED ONCE .ROUTE ; Start 02/12/17 at 12:14; Stop 02/18/17 at 10:41; Status DC Heparin Sodium (Porcine) (Heparin Sodium) 10,000 unit STK-MED ONCE .ROUTE ; Start 02/12/17 at 12:14; Stop 02/18/17 at 10:41; Status DC Heparin Sodium/ Sodium Chloride 500 ml @ As Directed STK-MED ONCE .ROUTE ; Start 02/12/17 at 12:14; Stop 02/18/17 at 10:41; Status DC Darbepoetin Dedrick (Aranesp) 60 mcg WEEKLYHS SQ Last administered on 02/18/17t 21:10; Start 02/18/17 at 21:00 Polyethylene Glycol (miraLAX PACKET) 17 gm BID PO ; Start 02/19/17 at 10:00 Magnesium Hydroxide (Milk Of Magnesia) 2,400 mg 1X ONCE PO ; Start 02/19/17 at 10:15; Stop 02/19/17 at 10:16; Status DC Bisacodyl (Dulcolax Tab) 5 mg PRN DAILY PRN PO CONSTIPATION; Start 02/19/17 at 10:00 Heparin Sodium (Porcine) (Heparin Sodium) 500 unit 1X PRN PRN INT CAT COMM; Start 02/20/17 at 08:30; Stop 02/21/17 at 08:29 Sodium Chloride 1,000 ml @ 1,000 mls/hr Q1H PRN IV hypotension; Start at 08:17; Stop 02/20/17 at 14:16 Albumin Human 200 ml @ 200 mls/hr 1X PRN PRN IV Hypotension; Start 02/20/17 at 08:30; Stop 02/20/17 at 14:29 Acetaminophen (Tylenol) 500 mg 1X PRN PRN PO MILD PAIN / TEMP; Start 02/20/17 at 08:30; Stop 02/21/17 at 08:29 Diphenhydramine HCl (Benadryl) 25 mg 1X PRN PRN IV ITCHING; Start 02/20/17 at 08:30; Stop 02/21/17 at 08:29 Diphenhydramine HCl (Benadryl) 25 mg 1X PRN PRN IV ITCHING; Start 02/20/17 at 08:30; Stop 02/21/17 at 08:29 Info (PHARMACY MONITORING -- do not chart) 1 each PRN DAILY PRN MC SEE COMMENTS ; Start 02/20/17 at 08:30 Info (PHARMACY MONITORING -- do not chart) 1 each PRN DAILY PRN MC SEE COMMENTS ; Start 02/20/17 at 08:30; Stop 02/20/17 at 08:37; Status DC Active Scripts Active Novolog (Insulin Aspart) 100 Unit/1 Ml Cartridge 25 Unit SQ TID 30 Days Metolazone 2.5 Mg Tablet 2.5 Mg PO DAILY Flomax (Tamsulosin Hcl) 0.4 Mg Cap.er.24h 0.4 Mg PO DAILY Reported Trazodone Hcl 100 Mg Tablet 100 Mg PO HS Glipizide 10 Mg Tablet 1 Tab PO BID Spironolactone 25 Mg Tablet 1 Tab PO DAILY Multi-Day Vitamins (Multivitamin) 1 Each Tablet 1 Tab PO DAILY Vitamin D3 (Cholecalciferol (Vitamin D3)) 1,000 Unit Tablet 1 Tab PO DAILY Aspirin 325 Mg Tablet 1 Tab PO DAILY Bumetanide 2 Mg Tablet 1 Tab PO DAILY Lantus Solostar (Insulin Glargine,Hum.rec.anlog) 100 Unit/1 Ml Insuln.pen 75 Unit SQ QHS Clopidogrel (Clopidogrel Bisulfate) 75 Mg Tablet 1 Tab PO DAILY Vitals/I & O Vital Sign - Last 24 Hours 02/19/17 02/19/17 02/19/17 02/19/17 10:59 11:29 15:00 15:23 Temp 97.3 97.5 97.3 97.5 Pulse 64 105 Resp 20 21 B/P (MAP) 120/60 (80) 128/62 (84) Pulse Ox 90 94 93 O2 Delivery Nasal Cannula Nasal Cannula Nasal Cannula Nasal Cannula O2 Flow Rate 2.0 2.0 2.0 2.0 02/19/17 02/19/17 02/19/17 02/19/17 16:49 19:25 19:50 19:57 Temp 99.4 99.4 Pulse 102 Resp 2 22 B/P (MAP) 90/51 (64) Pulse Ox 93 92 90 O2 Delivery Nasal Cannula Nasal Cannula Nasal Cannula Nasal Cannula O2 Flow Rate 2.0 2.0 2.0 2.0 02/19/17 02/20/17 02/20/17 02/20/17 23:00 03:00 07:00 07:51 Temp 99.4 98.5 97.6 99.4 98.5 97.6 Pulse 90 93 94 Resp 18 18 19 B/P (MAP) 116/50 (72) 87/56 (66) 117/56 (76) Pulse Ox 93 93 94 91 O2 Delivery Nasal Cannula Nasal Cannula Nasal Cannula Nasal Cannula O2 Flow Rate 2.0 2.0 2.0 2.0 02/20/17 08:00 O2 Delivery Nasal Cannula O2 Flow Rate 2.0 Intake and Output 02/19/17 02/19/17 02/20/17 15:00 23:00 07:00 Intake Total 240 ml 925 ml 420 ml Output Total 175 ml Balance 65 ml 925 ml 420 ml OKSANA JOSEPH MD Feb 20, 2017 09:08
--- NOTE | 2017-02-20 11:39 | PDOC ---
Renal-Progress Notes Subjective Notes Notes FEELS BETTER History of Present Illness Hx of present illness STABLE Vitals Vitals Vital Signs Date Time Temp Pulse Resp B/P (MAP) Pulse Ox O2 Delivery O2 Flow Rate FiO2 02/20/17 08:00 Nasal Cannula 2.0 02/20/17 07:51 91 02/20/17 07:00 97.6 94 19 117/56 (76) 97.6 Weight Weight [ ] I.O. Intake and Output Intake and Output 02/20/17 06:59 Intake Total 1585 ml Output Total 175 ml Balance 1410 ml Intake Oral 1585 ml Output Urine Total 175 ml # Bowel Movements 3 Labs Labs Laboratory Tests Test 02/19/17 11:47 02/19/17 16:47 02/19/17 21:11 02/20/17 05:10 Glucose (Fingerstick) 110 mg/dL (70-99) 255 mg/dL (70-99) 128 mg/dL (70-99) White Blood Count 13.1 x10^3/uL (4.0-11.0) Red Blood Count 3.43 x10^6/uL (4.30-5.70) Hemoglobin 9.3 g/dL (13.0-17.5) Hematocrit 29.3 % (39.0-53.0) Mean Corpuscular Volume 85 fL (79-100) Mean Corpuscular Hemoglobin 27 pg (25-35) Mean Corpuscular Hemoglobin Concent 32 g/dL (31-37) Red Cell Distribution Width 15.5 % (11.5-14.5) Platelet Count 419 x10^3/uL (140-400) Sodium Level 130 mmol/L (136-145) Potassium Level 4.7 mmol/L (3.5-5.1) Chloride Level 94 mmol/L (98-107) Carbon Dioxide Level 28 mmol/L (21-32) Anion Gap 8 (6-14) Blood Urea Nitrogen 49 mg/dL (8-26) Creatinine 3.2 mg/dL (0.7-1.3) Estimated GFR (Cockcroft-Gault) 19.0 Glucose Level 103 mg/dL (70-99) Calcium Level 9.3 mg/dL (8.5-10.1) 25-Hydroxy Vitamin D Total 46.0 ng/mL (30-100) Micro Micro Microbiology 02/08/17 Urine Culture - Final, Complete 02/08/17 Urine Culture Result 1 (RIANNA) - Final, Complete Review of Systems Constitutional: yes: weakness, alert, oriented Ears/Nose/Throat: Yes: no symptom reported Eyes: Yes: no symptom reported Pulmonary: Yes dyspnea Cardiovascular: Yes edema Genitourinary: Yes: other (OLIGURIA) Musculoskeletal: Yes: muscle stiffness Skin: Yes no symptom reported Psychiatric/Neurological: Yes: no symptom reported Endocrine: Yes: no symptom reported Hematologic/Lymphatic: Yes: no symptom reported Physical Exam General Appearance: no apparent distress Skin: warm Respiratory: decreased breath sounds Abdomen: soft, bowel sounds present Genitourinary: bladder flat Extremities: pulses present, edema Neurology: alert, oriented Assessment Assessment IMP ESRD ANEMIA LE EDEMA CHF PLAN HD TODAY UF 4-5 LITERS TOLERATED CONT KVNG OP HD HAS BEEN SET UP FOR MWF PROB D/C TODAY LOUIE CHOPRA MD Feb 20, 2017 11:39
--- NOTE | 2017-02-20 13:01 | PDOC ---
Subjective: Subjective: No complaints. Got a little, doesn't remember stooling. Objective: Objective: D/w RN - awaiting insurance approval to DC to [facility]. 3 stools charted yesterday. Vital Signs: Vital Signs Date Time Temp Pulse Resp B/P (MAP) Pulse Ox O2 Delivery O2 Flow Rate FiO2 02/20/17 11:55 91 Nasal Cannula 2.0 02/20/17 07:00 97.6 94 19 117/56 (76) 97.6 Labs: Laboratory Tests Test 02/19/17 16:47 02/19/17 21:11 02/20/17 05:10 02/20/17 07:37 Glucose (Fingerstick) 255 mg/dL 128 mg/dL 80 mg/dL White Blood Count 13.1 x10^3/uL Red Blood Count 3.43 x10^6/uL Hemoglobin 9.3 g/dL Hematocrit 29.3 % Mean Corpuscular Volume 85 fL Mean Corpuscular Hemoglobin 27 pg Mean Corpuscular Hemoglobin Concent 32 g/dL Red Cell Distribution Width 15.5 % Platelet Count 419 x10^3/uL Sodium Level 130 mmol/L Potassium Level 4.7 mmol/L Chloride Level 94 mmol/L Carbon Dioxide Level 28 mmol/L Anion Gap 8 Blood Urea Nitrogen 49 mg/dL Creatinine 3.2 mg/dL Estimated GFR (Cockcroft-Gault) 19.0 Glucose Level 103 mg/dL Calcium Level 9.3 mg/dL 25-Hydroxy Vitamin D Total 46.0 ng/mL PE: GEN: NAD, just finished dialyzing LUNGS: clear HEART: RRR ABD: soft, non-tender NEURO/PSYCH: A & O 3 A/P: CHF, ESRD on HD, anemia (on Plavix and ASA) ?cirrhosis Constipation - resolved -- Await DC plans. KENAN REICH Feb 20, 2017 13:01
[2017-02-20] MEDS: ASPIRIN 325 MG TABLET PO SCH (13:59)
[2017-02-20] MEDS: POLYETHYLENE GLYCOL 3350 17 GM PACKET. PO SCH (13:59)
[2017-02-20] MEDS: traMADol 50 MG TABLET PO PRN (14:00)
[2017-02-20] MEDS: CLOPIDOGREL BISULFATE 75 MG TABLET PO SCH (14:00)
[2017-02-20] MEDS: CHOLECALCIFEROL (VITAMIN D3) 1,000 UNIT TABLET PO SCH (14:00)
[2017-02-20] MEDS: TAMSULOSIN 0.4 MG CAP.ER.24H. PO SCH (14:00)
[2017-02-20] MEDS: glipiZIDE 5 MG TABLET PO SCH (14:01)
[2017-02-20] MEDS: MULTIVITAMIN with MINERAL TABLET. PO SCH (14:01)
[2017-02-20 14:50] VITALS: BP 133/40
--- NOTE | 2017-02-21 19:19 | DS ---
DATE OF DISCHARGE: 02/20/2017 CHIEF COMPLAINT: Acute hypoxic respiratory failure. HOSPITAL COURSE: The patient is a 76-year-old gentleman who presented to the hospital with dyspnea. He has a history of CHF and clinical findings in the Emergency Room confirmed exacerbation and he was promptly admitted. A Cardiology consult was obtained with his animal caretaker supervisor, Dr. Ibarra. Given his end-stage renal disease, and may and ever knew of restoring his fluid balance was ultrafiltration with dialysis. No further workup was done from a cardiac standpoint. Medications were optimized. The patient does also have history of COPD and nebulizers and supplemental O2 were administered. In addition, medications for diabetes, hypertension and other chronic problems were continued and no further complications arose. Because of the GI symptoms including mild nausea as well as abdominal distention, GI service was consulted to determine a possible alcoholic cirrhosis playing a role in his fluid status. No ascites however, was found on a CAT scan and therefore the liver was not deemed to be involved. PHYSICAL EXAMINATION: VITAL SIGNS: Show a blood pressure of 116/63, heart rate of 91, respiratory rate at 20, no fevers. GENERAL: A 76-year-old obese gentleman, alert, oriented, no acute distress. LUNGS: Clear. HEART: Regular rate and rhythm. ABDOMEN: Positive bowel sounds, soft, nontender. EXTREMITIES: Trace edema. DISCHARGE DIAGNOSES: Congestive heart failure exacerbation, end-stage renal disease, chronic obstructive pulmonary disease. DISCHARGE DISPOSITION: To care home. DISCHARGE CONDITION: Improved. DISCHARGE MEDICATIONS: Please refer to MAR. DISCHARGE INSTRUCTIONS: The patient will follow up with PCP after completion of rehab. Greater than 30 minutes were spent in arranging discharge. ROGELIO PHAN MD DR: FINA/nts JOB#: [id number] / [id number] [place]
--- NOTE | 2017-02-22 10:12 | DS ---
DATE OF DISCHARGE: 02/20/2017 ADMISSION DIAGNOSES: Congestive heart failure, volume overload and chronic renal failure. DISCHARGE DIAGNOSES: 1. Resolving volume overload. 2. Initiation of hemodialysis. HOSPITAL COURSE: The patient is a pleasant elderly male who has been in the hospital recently with back surgery. When he went home, he was doing relatively well but then developed [id number] kidney failure with volume overload. He was then readmitted. Consult Nephrology and he has now been initiated on dialysis. He also underwent a bone marrow biopsy while he was here at the hospital but we do not expect anything serious there. It is mainly just to check for fibrodysplasia or perhaps early multiple myeloma. Dr. Alfonso wants to see him in his office in a few weeks, basically wants to discharge the patient to detention. DISPOSITION: Skilled. ACTIVITY: As tolerated. DIET: Low sodium. MEDICATIONS: Please see the MRAD. TOTAL TIME: 32 minutes. MARYJANE SALCIDO DO DR: MICKI/thais JOB#: [id number] / [id number]
--- NOTE | 2017-02-22 10:18 | DS ---
DATE OF DISCHARGE: 02/20/2017 ADMISSION DIAGNOSES: Congestive heart failure, volume overload and [id number] renal failure. DISCHARGE DIAGNOSIS: New initiation of dialysis. HOSPITAL COURSE: The patient is a pleasant 76-year-old male who presented with end-stage renal disease and volume overload. He was admitted. We consulted Cardiology and Nephrology. We placed a dialysis catheter, did several treatments with dialysis. He is doing better. We plan to discharge to skilled. DISPOSITION: Skilled. ACTIVITY: As tolerated. DIET: Low sodium. MEDICATIONS: Please see the MRAD. TOTAL TIME: 33 minutes. BETHL Calvin SALCIDO DO DR: MICKI/thais JOB#: [id number] / [id number]
== END 2017-02-20 15:20 | DRG 871 ==
LOC: ER 08:58 → 2 SOUTH 11:30
PROVIDERS: ADMIT Internal Medicine; ATTEND Internal Medicine
PROC: 02H633Z Insertion of Infusion Device into Right Atrium, Percutaneous Approach (ICD-10-PCS; principal; 2017-02-12)
PROC: B2141ZZ Fluoroscopy of Right Heart using Low Osmolar Contrast (ICD-10-PCS; 2017-02-12)
PROC: B244YZZ Ultrasonography of Right Heart using Other Contrast (ICD-10-PCS; 2017-02-12)
PROC: 5A1D70Z Performance of Urinary Filtration, Intermittent, Less than 6 Hours Per Day (ICD-10-PCS; 2017-02-12)
PROC: 0JH63XZ Insertion of Tunneled Vascular Access Device into Chest Subcutaneous Tissue and Fascia, Percutaneous Approach (ICD-10-PCS; 2017-02-12)
PROC: 5A1D70Z Performance of Urinary Filtration, Intermittent, Less than 6 Hours Per Day (ICD-10-PCS; 2017-02-13)
PROC: 5A1D70Z Performance of Urinary Filtration, Intermittent, Less than 6 Hours Per Day (ICD-10-PCS; 2017-02-15)
PROC: 5A1D70Z Performance of Urinary Filtration, Intermittent, Less than 6 Hours Per Day (ICD-10-PCS; 2017-02-18)
PROC: 5A1D70Z Performance of Urinary Filtration, Intermittent, Less than 6 Hours Per Day (ICD-10-PCS; 2017-02-20)
PROC: 5A1D70Z Performance of Urinary Filtration, Intermittent, Less than 6 Hours Per Day (ICD-10-PCS; 2017-02-20)
DX: A41.9 Sepsis, unspecified organism (principal); I50.23 Acute on chronic systolic (congestive) heart failure; J96.01 Acute respiratory failure with hypoxia; N17.0 Acute kidney failure with tubular necrosis; E11.22 Type 2 diabetes mellitus with diabetic chronic kidney disease; N18.6 End stage renal disease; I07.1 Rheumatic tricuspid insufficiency; E44.1 Mild protein-calorie malnutrition; R18.8 Other ascites; N17.9 Acute kidney failure, unspecified; Z68.41 Body mass index [BMI] 40.0-44.9, adult; E87.1 Hypo-osmolality and hyponatremia; I42.0 Dilated cardiomyopathy; N39.0 Urinary tract infection, site not specified; E11.51 Type 2 diabetes mellitus with diabetic peripheral angiopathy without gangrene; D63.1 Anemia in chronic kidney disease; E66.01 Morbid (severe) obesity due to excess calories; E78.5 Hyperlipidemia, unspecified; Z88.8 Allergy status to other drugs, medicaments and biological substances; F41.9 Anxiety disorder, unspecified; I12.9 Hypertensive chronic kidney disease with stage 1 through stage 4 chronic kidney disease, or unspecified chronic kidney disease; I25.10 Atherosclerotic heart disease of native coronary artery without angina pectoris; I25.5 Ischemic cardiomyopathy; K57.90 Diverticulosis of intestine, part unspecified, without perforation or abscess without bleeding; I48.91 Unspecified atrial fibrillation; J44.9 Chronic obstructive pulmonary disease, unspecified; K59.00 Constipation, unspecified; K74.60 Unspecified cirrhosis of liver; K76.0 Fatty (change of) liver, not elsewhere classified; N40.0 Benign prostatic hyperplasia without lower urinary tract symptoms; Z66 Do not resuscitate; Z79.4 Long term (current) use of insulin; Z82.49 Family history of ischemic heart disease and other diseases of the circulatory system; Z95.1 Presence of aortocoronary bypass graft; Z99.2 Dependence on renal dialysis; Z86.73 Personal history of transient ischemic attack (TIA), and cerebral infarction without residual deficits; Z98.49 Cataract extraction status, unspecified eye; I25.2 Old myocardial infarction; Z95.0 Presence of cardiac pacemaker; Z90.49 Acquired absence of other specified parts of digestive tract
CPT/HCPCS: 36415; 36558; 36600; 71010; 71020; 76700; 76937; 77001; 80048; 80053; 80069; 80074; 81001; 82105; 82306; 82728; 82805; 82962; 83540; 83550; 83735; 83880; 84132; 84443; 84484; 85018; 85025; 85027; 85045; 85610; 86704; 86706; 87086; 93005; 93976; 94250; 94640; 94760; 96374; 99152; 99153; A4314; C1750; C1769; C1892; J0690; J0696; J0881; J1250; J1644; J1815; J1940; J2250; J3010; J3490; J7030; J7613; J7620; P9046; 97110; 97116; 97530; 97535; 99285-25

== ENCOUNTER → 2017-04-07 | Outpatient (CLI) | payer OTHER ==
[2017-04-07 21:25] LABS: BILIRUBIN,URINE MODERATE (NEG); CLARITY,URINE CLOUDY; COLOR,URINE RED; GLUCOSE,URINE 100 mg/dL (NEG)
[2017-04-07 21:26] LABS: NITRITE,URINE NEGATIVE (NEG); PROTEIN,URINE 30 mg/dL (NEG-TRACE)
[2017-04-07 21:27] LABS: BACTERIA,URINE FEW /HPF (0-FEW); RBC,URINE OCC /HPF (0-2)
== END | disposition home or self-care (01) ==
LOC: SPEC 20:57
DX: I13.0 Hypertensive heart and chronic kidney disease with heart failure and stage 1 through stage 4 chronic kidney disease, or unspecified chronic kidney disease (principal); N18.4 Chronic kidney disease, stage 4 (severe); I50.9 Heart failure, unspecified; R30.0 Dysuria
CPT/HCPCS: 81001; 87086

== ENCOUNTER 2017-05-16 08:04 | Outpatient (CLI) | payer OTHER ==
[2017-05-16 08:31] LABS: ADD MAN DIFF? NO
[2017-05-16 08:44] LABS: BASO # 0.1 x10^3/uL (0.0-0.2); BASO % 1 % (0-3); EOS # 0.5 x10^3/uL (0.0-0.7); EOS % 5 % (0-3); HEMOGLOBIN 11.1 g/dL (13.0-17.5); LYMPH # 2.3 x10^3/uL (1.0-4.8); LYMPH % 21 % (24-48); MEAN CORPUSCULAR HEMOGLOBIN 30 pg (25-35); MEAN CORPUSCULAR HGB CONC 33 g/dL (31-37); MEAN CORPUSCULAR VOLUME 90 fL (79-100); MONO % 10 % (0-9); NEUT # 6.9 x10^3uL (1.8-7.7); NEUT % 64 % (31-73); PLATELET COUNT 246 x10^3/uL (140-400); RED BLOOD COUNT 3.76 x10^6/uL (4.30-5.70); RED CELL DISTRIBUTION WIDTH 18.2 % (11.5-14.5); WHITE BLOOD COUNT 10.7 x10^3/uL (4.0-11.0)
[2017-05-16 08:48] LABS: ANION GAP 12 (6-14); BLOOD UREA NITROGEN 15 mg/dL (8-26); CALCIUM 8.9 mg/dL (8.5-10.1); CARBON DIOXIDE 25 mmol/L (21-32); CHLORIDE 99 mmol/L (98-107); CREATININE 2.3 mg/dL (0.7-1.3); GFR 27.9; GLUCOSE 173 mg/dL (70-99); POTASSIUM 4.3 mmol/L (3.5-5.1); SODIUM 136 mmol/L (136-145)
[2017-05-16 08:55] LABS: INR 1.2 (0.8-1.1); PROTHROMBIN TIME PATIENT 14.1 SEC (11.7-14.0)
[2017-05-16] MEDS: ALPRAZolam 1 MG TABLET PO (09:48)
[2017-05-16] MEDS ORDERED: IODIXANOL 320 MG/ML 100 ML VIAL. ×2 (09:54→12:22)
[2017-05-16] MEDS ORDERED: LIDOCAINE WITH 8.4% SOD BICARB 3 ML DISP.SYRIN. (09:54)
[2017-05-16] MEDS ORDERED: fentaNYL PF VIAL 250 MCG/5 ML VIAL (11:02)
[2017-05-16] MEDS ORDERED: MIDAZOLAM HCL/PF 5 MG/5 ML VIAL. (11:02)
[2017-05-16] MEDS ORDERED: HEPARIN for IV BOLUS 10,000 UNIT/10 ML VIAL. (11:30)
[2017-05-16] MEDS: IODIXANOL 320 MG/ML 100 ML VIAL. IART (13:28)
[2017-05-16] MEDS: LIDOCAINE WITH 8.4% SOD BICARB 3 ML DISP.SYRIN. IJ (13:28)
[2017-05-16] MEDS: fentaNYL PF VIAL 250 MCG/5 ML VIAL IV (13:35)
[2017-05-16] MEDS: MIDAZOLAM HCL/PF 5 MG/5 ML VIAL. IV (13:36)
[2017-05-16] MEDS: HEPARIN for IV BOLUS 10,000 UNIT/10 ML VIAL. IV (13:39)
[2017-05-16] MEDS ORDERED: CLOPIDOGREL BISULFATE 75 MG TABLET (14:03)
[2017-05-16] MEDS: CLOPIDOGREL BISULFATE 75 MG TABLET PO (14:11)
[2017-05-16] MEDS ORDERED: oxyCODONE IR 5 MG TABLET PO (14:15)
[2017-05-16] MEDS: oxyCODONE IR 5 MG TABLET PO (14:16)
== END 2017-05-16 16:20 | disposition home or self-care (01) ==
LOC: INTRAD 08:04
DX: I70.212 Atherosclerosis of native arteries of extremities with intermittent claudication, left leg (principal); T82.858A Stenosis of other vascular prosthetic devices, implants and grafts, initial encounter; Y84.8 Other medical procedures as the cause of abnormal reaction of the patient, or of later complication, without mention of misadventure at the time of the procedure; Y92.89 Other specified places as the place of occurrence of the external cause; I13.0 Hypertensive heart and chronic kidney disease with heart failure and stage 1 through stage 4 chronic kidney disease, or unspecified chronic kidney disease; E11.22 Type 2 diabetes mellitus with diabetic chronic kidney disease; N18.9 Chronic kidney disease, unspecified; I50.9 Heart failure, unspecified; J44.9 Chronic obstructive pulmonary disease, unspecified; I48.91 Unspecified atrial fibrillation; F41.9 Anxiety disorder, unspecified; F17.200 Nicotine dependence, unspecified, uncomplicated; Z72.89 Other problems related to lifestyle; Z98.890 Other specified postprocedural states; Z79.82 Long term (current) use of aspirin; Z79.4 Long term (current) use of insulin; Z87.39 Personal history of other diseases of the musculoskeletal system and connective tissue; Z88.1 Allergy status to other antibiotic agents; Z88.8 Allergy status to other drugs, medicaments and biological substances
CPT/HCPCS: 36415; 37226; 75625; 75710; 76937; 80048; 85025; 85610; 93971; 99152; 99153; C1713; C1725; C1769; C1892; C1894; C2623; G0269; J1644; J2250; J3010

== ENCOUNTER 2017-05-30 10:22 | Inpatient (IN) | payer OTHER ==
[2017-05-30 11:58] LABS: POC GLUCOSE 281 mg/dL (70-99)
[2017-05-30] MEDS: HYDROmorphone 2 MG/ML VIAL IV (13:47)
[2017-05-30] MEDS: oxyCODONE/APAP 10/325 1 TAB TABLET PO (15:58)
[2017-05-30] MEDS ORDERED: PIP/TAZO PER PHARMACY MC (16:00)
[2017-05-30] MEDS ORDERED: hydrALAZINE 20 MG/ML VIAL. IVP (16:00)
[2017-05-30 16:28] LABS: ADD MAN DIFF? NO
[2017-05-30 16:31] LABS: BASO # 0.1 x10^3/uL (0.0-0.2); BASO % 1 % (0-3); EOS # 0.2 x10^3/uL (0.0-0.7); EOS % 2 % (0-3); HEMATOCRIT 35.8 % (39.0-53.0); HEMOGLOBIN 11.4 g/dL (13.0-17.5); LYMPH # 1.9 x10^3/uL (1.0-4.8); LYMPH % 22 % (24-48); MEAN CORPUSCULAR HEMOGLOBIN 30 pg (25-35); MEAN CORPUSCULAR HGB CONC 32 g/dL (31-37); MEAN CORPUSCULAR VOLUME 93 fL (79-100); MONO # 0.9 x10^3/uL (0.0-1.1); MONO % 10 % (0-9); NEUT # 5.8 x10^3uL (1.8-7.7); NEUT % 65 % (31-73); PLATELET COUNT 298 x10^3/uL (140-400); RED BLOOD COUNT 3.86 x10^6/uL (4.30-5.70); RED CELL DISTRIBUTION WIDTH 19.8 % (11.5-14.5); WHITE BLOOD COUNT 8.8 x10^3/uL (4.0-11.0)
[2017-05-30] MEDS: VANCOMYCIN 2 GM in IV DEXTROSE 5% 500 ML IV (16:47)
[2017-05-30] MEDS: glipiZIDE 5 MG TABLET PO (16:54)
[2017-05-30 16:57] LABS: POC GLUCOSE 314 mg/dL (70-99)
[2017-05-30] MEDS: INSULIN ASPART 300 UNITS/3 ML INSULN.PEN SQ ×2 (17:01→17:02)
[2017-05-30] MEDS: HEPARIN PF for SUB-Q USE 5,000 UNIT/0.5 ML VIAL. SQ (17:02)
[2017-05-30 17:48] LABS: ANION GAP 9 (6-14); BLOOD UREA NITROGEN 22 mg/dL (8-26); CALCIUM 8.9 mg/dL (8.5-10.1); CARBON DIOXIDE 27 mmol/L (21-32); CHLORIDE 96 mmol/L (98-107); GFR 20.5; GLUCOSE 367 mg/dL (70-99); POTASSIUM 4.3 mmol/L (3.5-5.1); SODIUM 132 mmol/L (136-145)
[2017-05-30] MEDS: PIPERACILLIN/TAZOBACTAM 3.375 GM in IV NORMAL SALINE 50ML 50 ML IV (20:06)
[2017-05-30] MEDS: VANCOMYCIN PER PHARMACY MC (20:35)
[2017-05-30 20:55] LABS: POC GLUCOSE 113 mg/dL (70-99)
[2017-05-30] MEDS: TEMAZEPAM 15 MG CAPSULE PO (21:00)
[2017-05-30] MEDS ORDERED: INSULIN GLARGINE HUM REC ANLOG 75 UNIT SQ (21:00)
[2017-05-30] MEDS ORDERED: NON FORMULARY ITEM (Insulin Aspart (Novolog) 25 UNIT) SQ (21:00)
[2017-05-30] MEDS: INSULIN DETEMIR 300 UNITS/3 ML INSULN.PEN. SQ (21:00)
[2017-05-30] MEDS: traZODone 100 MG TABLET. PO (22:16)
[2017-05-30] MEDS: oxyCODONE ER 10 MG TAB.ER.12H PO (22:17)
[2017-05-31] MEDS: oxyCODONE/APAP 10/325 1 TAB TABLET PO ×2 (02:02→17:49)
[2017-05-31] MEDS: PIPERACILLIN/TAZOBACTAM 2.25 GM in IV NORMAL SALINE 50ML 50 ML IV ×4 (05:34→21:38)
[2017-05-31 05:56] LABS: ADD MAN DIFF? NO
[2017-05-31] MEDS: VANCOMYCIN RANDOM LEVEL. MC (06:00)
[2017-05-31 06:20] LABS: ANION GAP 8 (6-14); BLOOD UREA NITROGEN 26 mg/dL (8-26); CALCIUM 9.2 mg/dL (8.5-10.1); CARBON DIOXIDE 30 mmol/L (21-32); CHLORIDE 96 mmol/L (98-107); CREATININE 3.4 mg/dL (0.7-1.3); GFR 17.7; GLUCOSE 69 mg/dL (70-99); POTASSIUM 4.7 mmol/L (3.5-5.1); SODIUM 134 mmol/L (136-145)
[2017-05-31 06:39] LABS: BASO # 0.1 x10^3/uL (0.0-0.2); BASO % 1 % (0-3); EOS # 0.3 x10^3/uL (0.0-0.7); EOS % 3 % (0-3); HEMATOCRIT 36.5 % (39.0-53.0); HEMOGLOBIN 11.7 g/dL (13.0-17.5); LYMPH # 2.3 x10^3/uL (1.0-4.8); LYMPH % 23 % (24-48); MEAN CORPUSCULAR HEMOGLOBIN 30 pg (25-35); MEAN CORPUSCULAR HGB CONC 32 g/dL (31-37); MEAN CORPUSCULAR VOLUME 92 fL (79-100); MONO % 10 % (0-9); NEUT # 6.3 x10^3uL (1.8-7.7); NEUT % 64 % (31-73); PLATELET COUNT 327 x10^3/uL (140-400); RED BLOOD COUNT 3.95 x10^6/uL (4.30-5.70); RED CELL DISTRIBUTION WIDTH 20.1 % (11.5-14.5)
[2017-05-31] MEDS: glipiZIDE 5 MG TABLET PO (07:30)
[2017-05-31] MEDS: INSULIN ASPART 300 UNITS/3 ML INSULN.PEN SQ ×7 (07:30→21:38)
[2017-05-31] MEDS ORDERED: IV NORMAL SALINE 1000ML BAG 1,000 ML IV ×2 (07:31)
[2017-05-31] MEDS: DEXTROSE 50% 25 GM / 50ML DISP.SYRIN. IV (07:36)
[2017-05-31] MEDS ORDERED: ALBUMIN HUMAN 25% 200 ML IV (07:45)
[2017-05-31] MEDS ORDERED: DIALYSIS PATIENT. MC (07:45)
[2017-05-31] MEDS ORDERED: diphenhydrAMINE 50 MG/ML VIAL IV ×2 (07:45)
[2017-05-31 07:49] LABS: POC GLUCOSE 65 mg/dL (70-99)
[2017-05-31] MEDS: busPIRone 10 MG TABLET. PO (08:13)
[2017-05-31] MEDS: BUMETANIDE 1 MG TABLET. PO (08:13)
[2017-05-31] MEDS: ASPIRIN 325 MG TABLET PO (08:13)
[2017-05-31] MEDS: POLYETHYLENE GLYCOL 3350 17 GM PACKET. PO (08:13)
[2017-05-31] MEDS: oxyCODONE ER 10 MG TAB.ER.12H PO ×3 (08:13→21:27)
[2017-05-31] MEDS: VENLAFAXINE XR 37.5 MG CAP.ER.24H. PO (08:13)
[2017-05-31] MEDS: TAMSULOSIN 0.4 MG CAP.ER.24H. PO (08:13)
[2017-05-31] MEDS: CLOPIDOGREL BISULFATE 75 MG TABLET PO (08:14)
[2017-05-31] MEDS: metOLazone 2.5 MG TABLET PO (08:14)
[2017-05-31] MEDS: MULTIVITAMIN with MINERAL TABLET. PO (08:14)
[2017-05-31] MEDS: CHOLECALCIFEROL (VITAMIN D3) 1,000 UNIT TABLET PO (08:14)
[2017-05-31] MEDS: IV RINGERS,LACTATED 1000ML 1,000 ML IV (08:31)
[2017-05-31] MEDS: ALPRAZolam 1 MG TABLET PO ×2 (08:37→15:50)
[2017-05-31] MEDS ORDERED: PROCHLORPERAZINE 10 MG/2 ML VIAL. IV (08:45)
[2017-05-31] MEDS ORDERED: LIDOCAINE 1% PF 2 ML VIAL. ID (08:45)
[2017-05-31] MEDS ORDERED: ONDANSETRON PF 4 MG/2 ML VIAL. IV (08:45)
[2017-05-31] MEDS ORDERED: MORPHINE SULFATE 2 MG/ML DISP.SYRIN. IV (08:45)
[2017-05-31] MEDS: ACETAMINOPHEN 500 MG TABLET PO (09:28)
[2017-05-31] MEDS: ALBUMIN HUMAN 25% 200 ML IV (10:08)
[2017-05-31 10:11] LABS: ANISOCYTOSIS MOD
[2017-05-31 10:13] LABS: PLT ESTIMATE ADEQUATE (ADEQUATE)
[2017-05-31] MEDS: VANCOMYCIN PER PHARMACY MC (10:35)
[2017-05-31 11:00] LABS: POC GLUCOSE 84 mg/dL (70-99)
[2017-05-31 12:46] LABS: POC GLUCOSE 94 mg/dL (70-99)
[2017-05-31] MEDS ORDERED: LIDOCAINE 1% 20 ML VIAL. (13:24)
[2017-05-31] MEDS ORDERED: silver sulfADIAZINE 1% CREAM 25GM TUBE. TP (13:24)
[2017-05-31] MEDS ORDERED: DEXAMETHASONE SOD PHOS 20 MG/5 ML VIAL. (15:47)
[2017-05-31] MEDS ORDERED: SEVOFLURANE 61 TO 120 MINUTES. IH (15:47)
[2017-05-31] MEDS: VANCOMYCIN 500 MG in IV DEXTROSE 5% 100 ML IV (16:33)
[2017-05-31 16:44] LABS: HEMATOCRIT 32.1 % (39.0-53.0); HEMOGLOBIN 10.3 g/dL (13.0-17.5); MEAN CORPUSCULAR HGB CONC 32 g/dL (31-37)
[2017-05-31] MEDS: fentaNYL PF VIAL 100 MCG/2 ML VIAL IV ×4 (16:54→17:30)
[2017-05-31] MEDS ORDERED: VANCOMYCIN 1.75 GM in IV DEXTROSE 5 %-0.2 % NACL 500 ML IV (17:00)
[2017-05-31 17:16] LABS: POC GLUCOSE 71 mg/dL (70-99)
[2017-05-31] MEDS: FLUCONAZOLE 100 MG TABLET. PO (17:49)
[2017-05-31] MEDS: TEMAZEPAM 15 MG CAPSULE PO (21:00)
[2017-05-31] MEDS: traZODone 100 MG TABLET. PO (21:27)
[2017-05-31] MEDS: INSULIN DETEMIR 300 UNITS/3 ML INSULN.PEN. SQ (21:37)
[2017-05-31 21:38] LABS: POC GLUCOSE 220 mg/dL (70-99)
[2017-06-01 05:21] LABS: ADD MAN DIFF? NO
[2017-06-01 05:26] LABS: BASO % 0 % (0-3); EOS % 0 % (0-3); HEMOGLOBIN 10.9 g/dL (13.0-17.5); LYMPH # 0.6 x10^3/uL (1.0-4.8); LYMPH % 12 % (24-48); MEAN CORPUSCULAR HEMOGLOBIN 30 pg (25-35); MEAN CORPUSCULAR HGB CONC 32 g/dL (31-37); MEAN CORPUSCULAR VOLUME 94 fL (79-100); MONO # 0.4 x10^3/uL (0.0-1.1); MONO % 8 % (0-9); NEUT # 3.8 x10^3uL (1.8-7.7); NEUT % 80 % (31-73); PLATELET COUNT 214 x10^3/uL (140-400); RED BLOOD COUNT 3.61 x10^6/uL (4.30-5.70); WHITE BLOOD COUNT 4.8 x10^3/uL (4.0-11.0)
[2017-06-01 05:46] LABS: ANION GAP 13 (6-14); BLOOD UREA NITROGEN 20 mg/dL (8-26); CALCIUM 9.1 mg/dL (8.5-10.1); CARBON DIOXIDE 22 mmol/L (21-32); CHLORIDE 98 mmol/L (98-107); CREATININE 2.8 mg/dL (0.7-1.3); GFR 22.2; GLUCOSE 468 mg/dL (70-99); SODIUM 133 mmol/L (136-145)
[2017-06-01 05:52] LABS: POTASSIUM 5.4 mmol/L (3.5-5.1)
[2017-06-01] MEDS: PIPERACILLIN/TAZOBACTAM 2.25 GM in IV NORMAL SALINE 50ML 50 ML IV ×3 (06:30→21:09)
[2017-06-01] MEDS: INSULIN ASPART 300 UNITS/3 ML INSULN.PEN SQ ×10 (07:30→16:01)
[2017-06-01 07:48] LABS: POC GLUCOSE 459 mg/dL (70-99)
[2017-06-01] MEDS: CHOLECALCIFEROL (VITAMIN D3) 1,000 UNIT TABLET PO (08:51)
[2017-06-01] MEDS: MULTIVITAMIN with MINERAL TABLET. PO (08:52)
[2017-06-01] MEDS: BUMETANIDE 1 MG TABLET. PO (08:52)
[2017-06-01] MEDS: busPIRone 10 MG TABLET. PO (08:52)
[2017-06-01] MEDS: ASPIRIN 325 MG TABLET PO (08:52)
[2017-06-01] MEDS: CLOPIDOGREL BISULFATE 75 MG TABLET PO (08:52)
[2017-06-01] MEDS: DOCUSATE SODIUM 100 MG CAPSULE. PO (08:52)
[2017-06-01] MEDS: metOLazone 2.5 MG TABLET PO (08:52)
[2017-06-01] MEDS: TAMSULOSIN 0.4 MG CAP.ER.24H. PO (08:52)
[2017-06-01] MEDS: FLUCONAZOLE 100 MG TABLET. PO (08:53)
[2017-06-01] MEDS: VENLAFAXINE XR 37.5 MG CAP.ER.24H. PO (08:53)
[2017-06-01] MEDS: oxyCODONE ER 10 MG TAB.ER.12H PO ×2 (08:54→21:08)
[2017-06-01] MEDS: POLYETHYLENE GLYCOL 3350 17 GM PACKET. PO (08:54)
[2017-06-01] MEDS: INSULIN REGULAR 100 UNIT/ML 10ML VIAL. IV (08:58)
[2017-06-01 09:49] LABS: POC GLUCOSE 362 mg/dL (70-99)
[2017-06-01] MEDS ORDERED: SILVER NITRATE STICK TP (11:15)
[2017-06-01 11:25] LABS: POC GLUCOSE 418 mg/dL (70-99)
[2017-06-01] MEDS: oxyCODONE/APAP 10/325 1 TAB TABLET PO (13:25)
[2017-06-01 14:05] LABS: POC GLUCOSE 357 mg/dL (70-99)
[2017-06-01] MEDS: LORazepam 0.5 MG TABLET PO (14:08)
[2017-06-01] MEDS: INSULIN DETEMIR 300 UNITS/3 ML INSULN.PEN. SQ (15:54)
[2017-06-01 16:11] LABS: POC GLUCOSE 200 mg/dL (70-99)
[2017-06-01 17:53] LABS: POC GLUCOSE 111 mg/dL (70-99)
[2017-06-01] MEDS: traZODone 100 MG TABLET. PO (21:07)
[2017-06-01] MEDS: TEMAZEPAM 15 MG CAPSULE PO (21:07)
[2017-06-01] MEDS: LACTOBACILLUS RHAMNOSUS GG 1 CAPSULE. PO (21:07)
[2017-06-01 21:38] LABS: POC GLUCOSE 62 mg/dL (70-99)
[2017-06-01 22:52] LABS: POC GLUCOSE 77 mg/dL (70-99)
[2017-06-02 03:15] LABS: POC GLUCOSE 87 mg/dL (70-99)
[2017-06-02 05:26] LABS: ADD MAN DIFF? NO
[2017-06-02 05:28] LABS: BASO # 0.1 x10^3/uL (0.0-0.2); BASO % 1 % (0-3); EOS # 0.3 x10^3/uL (0.0-0.7); EOS % 4 % (0-3); HEMATOCRIT 33.6 % (39.0-53.0); HEMOGLOBIN 10.9 g/dL (13.0-17.5); LYMPH # 1.6 x10^3/uL (1.0-4.8); LYMPH % 22 % (24-48); MEAN CORPUSCULAR HEMOGLOBIN 30 pg (25-35); MEAN CORPUSCULAR HGB CONC 32 g/dL (31-37); MEAN CORPUSCULAR VOLUME 93 fL (79-100); MONO # 0.8 x10^3/uL (0.0-1.1); MONO % 11 % (0-9); NEUT # 4.5 x10^3uL (1.8-7.7); NEUT % 62 % (31-73); PLATELET COUNT 227 x10^3/uL (140-400); RED BLOOD COUNT 3.62 x10^6/uL (4.30-5.70); WHITE BLOOD COUNT 7.3 x10^3/uL (4.0-11.0)
[2017-06-02 05:36] LABS: ANION GAP 9 (6-14); BLOOD UREA NITROGEN 31 mg/dL (8-26); CALCIUM 8.9 mg/dL (8.5-10.1); CARBON DIOXIDE 24 mmol/L (21-32); CHLORIDE 99 mmol/L (98-107); CREATININE 3.8 mg/dL (0.7-1.3); GFR 15.6; GLUCOSE 95 mg/dL (70-99); SODIUM 132 mmol/L (136-145)
[2017-06-02] MEDS: oxyCODONE/APAP 10/325 1 TAB TABLET PO ×2 (06:11→14:30)
[2017-06-02] MEDS: PIPERACILLIN/TAZOBACTAM 2.25 GM in IV NORMAL SALINE 50ML 50 ML IV ×3 (06:12→22:32)
[2017-06-02] MEDS: INSULIN ASPART 300 UNITS/3 ML INSULN.PEN SQ ×6 (08:00→17:00)
[2017-06-02 08:20] LABS: POC GLUCOSE 99 mg/dL (70-99)
[2017-06-02] MEDS: POLYETHYLENE GLYCOL 3350 17 GM PACKET. PO (09:45)
[2017-06-02] MEDS: CHOLECALCIFEROL (VITAMIN D3) 1,000 UNIT TABLET PO (09:45)
[2017-06-02] MEDS: BUMETANIDE 1 MG TABLET. PO (09:45)
[2017-06-02] MEDS: TAMSULOSIN 0.4 MG CAP.ER.24H. PO (09:46)
[2017-06-02] MEDS: MULTIVITAMIN with MINERAL TABLET. PO (09:46)
[2017-06-02] MEDS: CLOPIDOGREL BISULFATE 75 MG TABLET PO (09:46)
[2017-06-02] MEDS: ASPIRIN 325 MG TABLET PO (09:46)
[2017-06-02] MEDS: LACTOBACILLUS RHAMNOSUS GG 1 CAPSULE. PO ×2 (09:47→22:31)
[2017-06-02] MEDS: VENLAFAXINE XR 37.5 MG CAP.ER.24H. PO (09:47)
[2017-06-02] MEDS: busPIRone 10 MG TABLET. PO (09:47)
[2017-06-02] MEDS: metOLazone 2.5 MG TABLET PO (09:47)
[2017-06-02] MEDS: FLUCONAZOLE 100 MG TABLET. PO (09:47)
[2017-06-02] MEDS: oxyCODONE ER 10 MG TAB.ER.12H PO ×2 (09:48→22:32)
[2017-06-02 12:06] LABS: POC GLUCOSE 91 mg/dL (70-99)
[2017-06-02 12:19] LABS: POC GLUCOSE 86 mg/dL (70-99)
[2017-06-02] MEDS: ALPRAZolam 0.25 MG TABLET PO ×2 (13:50→22:50)
[2017-06-02] MEDS: ONDANSETRON PF 4 MG/2 ML VIAL. IV (13:50)
[2017-06-02 15:49] LABS: POC GLUCOSE 130 mg/dL (70-99)
[2017-06-02 21:21] LABS: POC GLUCOSE 169 mg/dL (70-99)
[2017-06-02] MEDS: TEMAZEPAM 15 MG CAPSULE PO (22:31)
[2017-06-02] MEDS: traZODone 100 MG TABLET. PO (22:31)
[2017-06-02] MEDS: INSULIN DETEMIR 300 UNITS/3 ML INSULN.PEN. SQ (22:41)
[2017-06-03] MEDS: PIPERACILLIN/TAZOBACTAM 2.25 GM in IV NORMAL SALINE 50ML 50 ML IV (05:45)
[2017-06-03] MEDS: INSULIN ASPART 300 UNITS/3 ML INSULN.PEN SQ ×6 (07:30→17:00)
[2017-06-03 07:38] LABS: POC GLUCOSE 93 mg/dL (70-99)
[2017-06-03] MEDS ORDERED: ACETAMINOPHEN 500 MG TABLET PO (09:00)
[2017-06-03] MEDS ORDERED: IV NORMAL SALINE 1000ML BAG 1,000 ML IV ×2 (09:00)
[2017-06-03] MEDS ORDERED: DIALYSIS PATIENT. MC (09:00)
[2017-06-03] MEDS ORDERED: diphenhydrAMINE 50 MG/ML VIAL IV ×2 (09:00)
[2017-06-03] MEDS: ALPRAZolam 1 MG TABLET PO (09:10)
[2017-06-03] MEDS: oxyCODONE ER 10 MG TAB.ER.12H PO ×2 (09:10→21:23)
[2017-06-03] MEDS: BUMETANIDE 1 MG TABLET. PO (13:54)
[2017-06-03] MEDS: oxyCODONE/APAP 10/325 1 TAB TABLET PO (13:54)
[2017-06-03] MEDS: POLYETHYLENE GLYCOL 3350 17 GM PACKET. PO (13:54)
[2017-06-03] MEDS: CLOPIDOGREL BISULFATE 75 MG TABLET PO (13:54)
[2017-06-03] MEDS: CHOLECALCIFEROL (VITAMIN D3) 1,000 UNIT TABLET PO (13:55)
[2017-06-03] MEDS: LACTOBACILLUS RHAMNOSUS GG 1 CAPSULE. PO ×2 (13:55→21:22)
[2017-06-03] MEDS: MULTIVITAMIN with MINERAL TABLET. PO (13:55)
[2017-06-03] MEDS: busPIRone 10 MG TABLET. PO (13:55)
[2017-06-03] MEDS: TAMSULOSIN 0.4 MG CAP.ER.24H. PO (13:55)
[2017-06-03] MEDS: FLUCONAZOLE 100 MG TABLET. PO (13:55)
[2017-06-03] MEDS: VENLAFAXINE XR 37.5 MG CAP.ER.24H. PO (13:55)
[2017-06-03] MEDS: PIPERACILLIN/TAZOBACTAM 2.25 GM in IV NORMAL SALINE 100ML 100 ML IV ×2 (13:55→22:00)
[2017-06-03] MEDS: metOLazone 2.5 MG TABLET PO (13:55)
[2017-06-03] MEDS: ASPIRIN 325 MG TABLET PO (13:55)
[2017-06-03] MEDS: VANCOMYCIN PER PHARMACY MC (14:22)
[2017-06-03 17:02] LABS: POC GLUCOSE 103 mg/dL (70-99)
[2017-06-03] MEDS: VANCOMYCIN 500 MG in IV DEXTROSE 5% 100 ML IV (17:52)
[2017-06-03 21:02] LABS: POC GLUCOSE 122 mg/dL (70-99)
[2017-06-03] MEDS: TEMAZEPAM 15 MG CAPSULE PO (21:22)
[2017-06-03] MEDS: traZODone 100 MG TABLET. PO (21:22)
[2017-06-03] MEDS: INSULIN DETEMIR 300 UNITS/3 ML INSULN.PEN. SQ (21:28)
[2017-06-04 04:19] LABS: ADD MAN DIFF? NO
[2017-06-04 04:27] LABS: BASO % 0 % (0-3); EOS # 0.3 x10^3/uL (0.0-0.7); EOS % 5 % (0-3); HEMATOCRIT 33.1 % (39.0-53.0); HEMOGLOBIN 10.6 g/dL (13.0-17.5); LYMPH # 1.7 x10^3/uL (1.0-4.8); LYMPH % 26 % (24-48); MEAN CORPUSCULAR HEMOGLOBIN 30 pg (25-35); MEAN CORPUSCULAR HGB CONC 32 g/dL (31-37); MEAN CORPUSCULAR VOLUME 94 fL (79-100); MONO # 0.9 x10^3/uL (0.0-1.1); MONO % 13 % (0-9); NEUT # 3.7 x10^3uL (1.8-7.7); NEUT % 56 % (31-73); PLATELET COUNT 221 x10^3/uL (140-400); RED BLOOD COUNT 3.54 x10^6/uL (4.30-5.70); WHITE BLOOD COUNT 6.6 x10^3/uL (4.0-11.0)
[2017-06-04 04:45] LABS: ANION GAP 10 (6-14); BLOOD UREA NITROGEN 22 mg/dL (8-26); CALCIUM 8.7 mg/dL (8.5-10.1); CARBON DIOXIDE 29 mmol/L (21-32); CHLORIDE 100 mmol/L (98-107); CREATININE 2.8 mg/dL (0.7-1.3); GFR 22.2; GLUCOSE 99 mg/dL (70-99); SODIUM 139 mmol/L (136-145)
[2017-06-04] MEDS: PIPERACILLIN/TAZOBACTAM 2.25 GM in IV NORMAL SALINE 100ML 100 ML IV (06:10)
[2017-06-04] MEDS: INSULIN ASPART 300 UNITS/3 ML INSULN.PEN SQ ×6 (07:30→17:00)
[2017-06-04 07:35] LABS: HEP B SURFACE AG Negative (Negative)
[2017-06-04 08:23] LABS: POC GLUCOSE 67 mg/dL (70-99)
[2017-06-04 08:29] LABS: POC GLUCOSE 56 mg/dL (70-99)
[2017-06-04] MEDS: busPIRone 10 MG TABLET. PO (08:35)
[2017-06-04] MEDS: LACTOBACILLUS RHAMNOSUS GG 1 CAPSULE. PO ×2 (08:35→21:08)
[2017-06-04] MEDS: FLUCONAZOLE 100 MG TABLET. PO (08:35)
[2017-06-04] MEDS: CHOLECALCIFEROL (VITAMIN D3) 1,000 UNIT TABLET PO (08:35)
[2017-06-04] MEDS: VENLAFAXINE XR 37.5 MG CAP.ER.24H. PO (08:35)
[2017-06-04] MEDS: TAMSULOSIN 0.4 MG CAP.ER.24H. PO (08:36)
[2017-06-04] MEDS: oxyCODONE ER 10 MG TAB.ER.12H PO ×2 (08:36→21:10)
[2017-06-04] MEDS: ASPIRIN 325 MG TABLET PO (08:36)
[2017-06-04] MEDS: CLOPIDOGREL BISULFATE 75 MG TABLET PO (08:36)
[2017-06-04] MEDS: MULTIVITAMIN with MINERAL TABLET. PO (08:36)
[2017-06-04] MEDS: POLYETHYLENE GLYCOL 3350 17 GM PACKET. PO (08:36)
[2017-06-04] MEDS: BUMETANIDE 1 MG TABLET. PO (08:38)
[2017-06-04] MEDS: metOLazone 2.5 MG TABLET PO (08:38)
[2017-06-04] MEDS: CEFEPIME HCL 1 GM in IV DEXTROSE 5% 50 ML IV (09:50)
[2017-06-04 11:39] LABS: POC GLUCOSE 127 mg/dL (70-99)
[2017-06-04] MEDS: VANCOMYCIN PER PHARMACY MC (15:55)
[2017-06-04 16:53] LABS: POC GLUCOSE 150 mg/dL (70-99)
[2017-06-04 21:06] LABS: POC GLUCOSE 181 mg/dL (70-99)
[2017-06-04] MEDS: traZODone 100 MG TABLET. PO (21:08)
[2017-06-04] MEDS: TEMAZEPAM 15 MG CAPSULE PO (21:08)
[2017-06-04] MEDS: DARBEPOETIN ALFA 60 MCG/0.3 ML DISP.SYRIN. SQ (21:11)
[2017-06-04] MEDS: INSULIN DETEMIR 300 UNITS/3 ML INSULN.PEN. SQ (21:15)
[2017-06-05 04:10] LABS: ADD MAN DIFF? NO
[2017-06-05 04:20] LABS: BASO % 0 % (0-3); EOS # 0.3 x10^3/uL (0.0-0.7); EOS % 5 % (0-3); HEMOGLOBIN 10.7 g/dL (13.0-17.5); LYMPH # 1.8 x10^3/uL (1.0-4.8); LYMPH % 28 % (24-48); MEAN CORPUSCULAR HEMOGLOBIN 30 pg (25-35); MEAN CORPUSCULAR HGB CONC 32 g/dL (31-37); MEAN CORPUSCULAR VOLUME 93 fL (79-100); MONO # 0.8 x10^3/uL (0.0-1.1); MONO % 12 % (0-9); NEUT # 3.6 x10^3uL (1.8-7.7); NEUT % 55 % (31-73); PLATELET COUNT 223 x10^3/uL (140-400); RED BLOOD COUNT 3.53 x10^6/uL (4.30-5.70); RED CELL DISTRIBUTION WIDTH 19.4 % (11.5-14.5); WHITE BLOOD COUNT 6.6 x10^3/uL (4.0-11.0)
[2017-06-05 04:50] LABS: ANION GAP 9 (6-14); BLOOD UREA NITROGEN 31 mg/dL (8-26); CALCIUM 8.4 mg/dL (8.5-10.1); CARBON DIOXIDE 28 mmol/L (21-32); CHLORIDE 99 mmol/L (98-107); CREATININE 3.3 mg/dL (0.7-1.3); GFR 18.4; GLUCOSE 151 mg/dL (70-99); POTASSIUM 4.6 mmol/L (3.5-5.1); SODIUM 136 mmol/L (136-145)
[2017-06-05] MEDS: VANCOMYCIN RANDOM LEVEL. MC (05:00)
[2017-06-05] MEDS: INSULIN ASPART 300 UNITS/3 ML INSULN.PEN SQ ×6 (07:42→17:00)
[2017-06-05 07:46] LABS: POC GLUCOSE 124 mg/dL (70-99)
[2017-06-05] MEDS: CEFEPIME HCL 1 GM in IV DEXTROSE 5% 50 ML IV ×2 (09:00→20:39)
[2017-06-05] MEDS: busPIRone 10 MG TABLET. PO (09:38)
[2017-06-05] MEDS: TAMSULOSIN 0.4 MG CAP.ER.24H. PO (09:38)
[2017-06-05] MEDS: CLOPIDOGREL BISULFATE 75 MG TABLET PO (09:38)
[2017-06-05] MEDS: VENLAFAXINE XR 37.5 MG CAP.ER.24H. PO (09:38)
[2017-06-05] MEDS: ALPRAZolam 1 MG TABLET PO (09:38)
[2017-06-05] MEDS: LACTOBACILLUS RHAMNOSUS GG 1 CAPSULE. PO ×2 (09:39→20:36)
[2017-06-05] MEDS: CHOLECALCIFEROL (VITAMIN D3) 1,000 UNIT TABLET PO (09:39)
[2017-06-05] MEDS: MULTIVITAMIN with MINERAL TABLET. PO (09:39)
[2017-06-05] MEDS: ASPIRIN 325 MG TABLET PO (09:39)
[2017-06-05] MEDS: metOLazone 2.5 MG TABLET PO (09:39)
[2017-06-05] MEDS: BUMETANIDE 1 MG TABLET. PO (09:39)
[2017-06-05] MEDS: FLUCONAZOLE 100 MG TABLET. PO (09:40)
[2017-06-05] MEDS: oxyCODONE ER 10 MG TAB.ER.12H PO ×2 (09:41→20:36)
[2017-06-05] MEDS: POLYETHYLENE GLYCOL 3350 17 GM PACKET. PO (09:41)
[2017-06-05] MEDS: VANCOMYCIN PER PHARMACY MC (11:38)
[2017-06-05] MEDS ORDERED: IV NORMAL SALINE 1000ML BAG 1,000 ML IV ×2 (12:29)
[2017-06-05] MEDS ORDERED: diphenhydrAMINE 50 MG/ML VIAL IV ×2 (12:30)
[2017-06-05] MEDS ORDERED: ACETAMINOPHEN 500 MG TABLET PO (12:30)
[2017-06-05] MEDS ORDERED: DIALYSIS PATIENT. MC (12:30)
[2017-06-05 13:45] LABS: POC GLUCOSE 72 mg/dL (70-99)
[2017-06-05] MEDS: oxyCODONE/APAP 10/325 1 TAB TABLET PO (14:24)
[2017-06-05 14:53] LABS: POC GLUCOSE 57 mg/dL (70-99)
[2017-06-05] MEDS: VANCOMYCIN 500 MG in IV DEXTROSE 5% 100 ML IV (19:21)
[2017-06-05] MEDS: MORPHINE SULFATE 4 MG/ML DISP.SYRIN. IV (19:22)
[2017-06-05 20:13] LABS: POC GLUCOSE 84 mg/dL (70-99)
[2017-06-05] MEDS: traZODone 100 MG TABLET. PO (20:36)
[2017-06-05] MEDS: ALPRAZolam 0.25 MG TABLET PO (20:36)
[2017-06-05] MEDS: TEMAZEPAM 15 MG CAPSULE PO (21:00)
[2017-06-05] MEDS: INSULIN DETEMIR 300 UNITS/3 ML INSULN.PEN. SQ (21:00)
[2017-06-06 04:13] LABS: ADD MAN DIFF? NO
[2017-06-06 04:27] LABS: BASO % 0 % (0-3); EOS # 0.4 x10^3/uL (0.0-0.7); EOS % 5 % (0-3); HEMATOCRIT 33.2 % (39.0-53.0); HEMOGLOBIN 10.8 g/dL (13.0-17.5); LYMPH # 1.7 x10^3/uL (1.0-4.8); LYMPH % 24 % (24-48); MEAN CORPUSCULAR HEMOGLOBIN 30 pg (25-35); MEAN CORPUSCULAR HGB CONC 33 g/dL (31-37); MEAN CORPUSCULAR VOLUME 93 fL (79-100); MONO # 0.8 x10^3/uL (0.0-1.1); MONO % 11 % (0-9); NEUT # 4.2 x10^3uL (1.8-7.7); NEUT % 60 % (31-73); PLATELET COUNT 204 x10^3/uL (140-400); RED BLOOD COUNT 3.58 x10^6/uL (4.30-5.70); RED CELL DISTRIBUTION WIDTH 18.9 % (11.5-14.5); WHITE BLOOD COUNT 7.1 x10^3/uL (4.0-11.0)
[2017-06-06 04:37] LABS: INR 1.1 (0.8-1.1); PROTHROMBIN TIME PATIENT 14.1 SEC (11.7-14.0)
[2017-06-06 04:41] LABS: ANION GAP 6 (6-14); BLOOD UREA NITROGEN 18 mg/dL (8-26); CALCIUM 8.7 mg/dL (8.5-10.1); CARBON DIOXIDE 30 mmol/L (21-32); CHLORIDE 99 mmol/L (98-107); CREATININE 2.2 mg/dL (0.7-1.3); GFR 29.3; GLUCOSE 100 mg/dL (70-99); POTASSIUM 4.1 mmol/L (3.5-5.1); SODIUM 135 mmol/L (136-145)
[2017-06-06] MEDS: INSULIN ASPART 300 UNITS/3 ML INSULN.PEN SQ ×6 (07:30→17:00)
[2017-06-06 07:37] LABS: POC GLUCOSE 89 mg/dL (70-99)
[2017-06-06] MEDS: POLYETHYLENE GLYCOL 3350 17 GM PACKET. PO (09:00)
[2017-06-06] MEDS: oxyCODONE ER 10 MG TAB.ER.12H PO ×3 (09:00→21:36)
[2017-06-06] MEDS: TAMSULOSIN 0.4 MG CAP.ER.24H. PO (09:00)
[2017-06-06] MEDS: MULTIVITAMIN with MINERAL TABLET. PO (09:00)
[2017-06-06] MEDS: LACTOBACILLUS RHAMNOSUS GG 1 CAPSULE. PO ×2 (09:00→21:36)
[2017-06-06] MEDS: VENLAFAXINE XR 37.5 MG CAP.ER.24H. PO (09:00)
[2017-06-06] MEDS: CHOLECALCIFEROL (VITAMIN D3) 1,000 UNIT TABLET PO (09:00)
[2017-06-06] MEDS: ASPIRIN 325 MG TABLET PO (09:00)
[2017-06-06] MEDS: busPIRone 10 MG TABLET. PO (09:00)
[2017-06-06] MEDS: BUMETANIDE 1 MG TABLET. PO (09:00)
[2017-06-06] MEDS: CLOPIDOGREL BISULFATE 75 MG TABLET PO (09:00)
[2017-06-06] MEDS: FLUCONAZOLE 100 MG TABLET. PO (09:00)
[2017-06-06] MEDS: metOLazone 2.5 MG TABLET PO (09:00)
[2017-06-06 09:09] LABS: POC GLUCOSE 99 mg/dL (70-99)
[2017-06-06] MEDS: VANCOMYCIN PER PHARMACY MC (10:51)
[2017-06-06 10:57] LABS: POC GLUCOSE 109 mg/dL (70-99)
[2017-06-06] MEDS ORDERED: IODIXANOL 320 MG/ML 100 ML VIAL. (13:02)
[2017-06-06] MEDS ORDERED: LIDOCAINE WITH 8.4% SOD BICARB 3 ML DISP.SYRIN. (13:02)
[2017-06-06] MEDS ORDERED: MIDAZOLAM HCL/PF 5 MG/5 ML VIAL. (13:38)
[2017-06-06] MEDS ORDERED: fentaNYL PF VIAL 250 MCG/5 ML VIAL (13:39)
[2017-06-06] MEDS ORDERED: NALOXONE 0.4 MG/ML VIAL. (13:39)
[2017-06-06] MEDS ORDERED: FLUMAZENIL 0.5 MG/5 ML VIAL. IV (13:39)
[2017-06-06] MEDS ORDERED: HEPARIN for IV BOLUS 10,000 UNIT/10 ML VIAL. (14:43)
[2017-06-06] MEDS: fentaNYL PF VIAL 250 MCG/5 ML VIAL IV (15:11)
[2017-06-06] MEDS: IODIXANOL 320 MG/ML 100 ML VIAL. IART (15:12)
[2017-06-06] MEDS: MIDAZOLAM HCL/PF 5 MG/5 ML VIAL. IV (15:12)
[2017-06-06] MEDS: LIDOCAINE WITH 8.4% SOD BICARB 3 ML DISP.SYRIN. IJ (15:13)
[2017-06-06] MEDS: MORPHINE SULFATE 4 MG/ML DISP.SYRIN. IV (15:26)
[2017-06-06] MEDS: INSULIN DETEMIR 300 UNITS/3 ML INSULN.PEN. SQ (21:00)
[2017-06-06] MEDS: ALPRAZolam 0.25 MG TABLET PO (21:36)
[2017-06-06] MEDS: traZODone 100 MG TABLET. PO (21:36)
[2017-06-06] MEDS: CEFEPIME HCL 1 GM in IV DEXTROSE 5% 50 ML IV (21:37)
[2017-06-06 21:44] LABS: POC GLUCOSE 190 mg/dL (70-99)
[2017-06-07] MEDS ORDERED: CEFEPIME HCL 1 GM in IV NORMAL SALINE 50ML 50 ML IV (04:09)
[2017-06-07 04:39] LABS: ADD MAN DIFF? NO
[2017-06-07 04:45] LABS: BASO % 0 % (0-3); EOS # 0.4 x10^3/uL (0.0-0.7); EOS % 6 % (0-3); HEMATOCRIT 33.3 % (39.0-53.0); HEMOGLOBIN 10.8 g/dL (13.0-17.5); LYMPH # 1.4 x10^3/uL (1.0-4.8); LYMPH % 22 % (24-48); MEAN CORPUSCULAR HEMOGLOBIN 30 pg (25-35); MEAN CORPUSCULAR HGB CONC 32 g/dL (31-37); MEAN CORPUSCULAR VOLUME 93 fL (79-100); MONO # 0.7 x10^3/uL (0.0-1.1); MONO % 11 % (0-9); NEUT # 3.9 x10^3uL (1.8-7.7); NEUT % 61 % (31-73); PLATELET COUNT 219 x10^3/uL (140-400); RED BLOOD COUNT 3.58 x10^6/uL (4.30-5.70); RED CELL DISTRIBUTION WIDTH 18.7 % (11.5-14.5); WHITE BLOOD COUNT 6.4 x10^3/uL (4.0-11.0)
[2017-06-07 05:06] LABS: ANION GAP 8 (6-14); BLOOD UREA NITROGEN 26 mg/dL (8-26); CALCIUM 9.1 mg/dL (8.5-10.1); CARBON DIOXIDE 28 mmol/L (21-32); CHLORIDE 99 mmol/L (98-107); CREATININE 2.5 mg/dL (0.7-1.3); GFR 25.3; GLUCOSE 163 mg/dL (70-99); POTASSIUM 4.2 mmol/L (3.5-5.1); SODIUM 135 mmol/L (136-145)
[2017-06-07] MEDS ORDERED: IOHEXOL 300 MG/ML 100ML VIAL. (06:21)
[2017-06-07] MEDS ORDERED: MORPHINE SULFATE 2 MG/ML DISP.SYRIN. IV (07:00)
[2017-06-07] MEDS ORDERED: PROCHLORPERAZINE 10 MG/2 ML VIAL. IV (07:00)
[2017-06-07] MEDS ORDERED: LIDOCAINE 1% PF 2 ML VIAL. ID (07:00)
[2017-06-07] MEDS: BUMETANIDE 1 MG TABLET. PO (07:11)
[2017-06-07] MEDS: busPIRone 10 MG TABLET. PO (07:11)
[2017-06-07] MEDS: INSULIN ASPART 300 UNITS/3 ML INSULN.PEN SQ ×6 (07:11→19:00)
[2017-06-07] MEDS: LACTOBACILLUS RHAMNOSUS GG 1 CAPSULE. PO ×2 (07:11→21:21)
[2017-06-07] MEDS: TAMSULOSIN 0.4 MG CAP.ER.24H. PO (07:12)
[2017-06-07] MEDS: oxyCODONE ER 10 MG TAB.ER.12H PO ×2 (07:12→21:21)
[2017-06-07] MEDS: FLUCONAZOLE 100 MG TABLET. PO (07:12)
[2017-06-07] MEDS: VENLAFAXINE XR 37.5 MG CAP.ER.24H. PO (07:12)
[2017-06-07] MEDS: POLYETHYLENE GLYCOL 3350 17 GM PACKET. PO (07:12)
[2017-06-07] MEDS: ALPRAZolam 1 MG TABLET PO (07:13)
[2017-06-07] MEDS: MULTIVITAMIN with MINERAL TABLET. PO (07:13)
[2017-06-07] MEDS: metOLazone 2.5 MG TABLET PO (07:13)
[2017-06-07] MEDS: CHOLECALCIFEROL (VITAMIN D3) 1,000 UNIT TABLET PO (07:13)
[2017-06-07 07:23] LABS: POC GLUCOSE 121 mg/dL (70-99)
[2017-06-07 07:34] LABS: POC GLUCOSE 160 mg/dL (70-99)
[2017-06-07] MEDS: VANCOMYCIN PER PHARMACY MC (10:54)
[2017-06-07] MEDS ORDERED: DEXAMETHASONE SOD PHOS 20 MG/5 ML VIAL. (11:00)
[2017-06-07] MEDS ORDERED: fentaNYL PF VIAL 100 MCG/2 ML VIAL (11:00)
[2017-06-07] MEDS ORDERED: PROPOFOL 0 ML IV (11:00)
[2017-06-07] MEDS ORDERED: ONDANSETRON PF 4 MG/2 ML VIAL. (11:00)
[2017-06-07 11:17] LABS: POC GLUCOSE 140 mg/dL (70-99)
[2017-06-07] MEDS: IV RINGERS,LACTATED 1000ML 1,000 ML IV (11:33)
[2017-06-07] MEDS: IV NORMAL SALINE 1000ML BAG 500 ML IV (11:35)
[2017-06-07] MEDS ORDERED: ETOMIDATE 20 MG/10 ML VIAL. IV (11:48)
[2017-06-07] MEDS ORDERED: ROCURONIUM 50 MG/5 ML VIAL. (11:50)
[2017-06-07] MEDS ORDERED: DESFLURANE > 120 MINUTES IH (13:56)
[2017-06-07] MEDS ORDERED: PHENYLEPHRINE 10 MG/ML VIAL. ×2 (13:56)
[2017-06-07] MEDS: SURGICEL FIBRILLAR 1X2 EACH. (14:50)
[2017-06-07] MEDS: HEPARIN SODIUM 5,000 UNIT in IV NORMAL SALINE 500ML BAG 500 ML IRR (14:50)
[2017-06-07] MEDS: HEPARIN SODIUM 5,000 UNIT in IV RINGERS,LACTATED 500ML 500 ML IRR (14:50)
[2017-06-07] MEDS ORDERED: HEPARIN for IV BOLUS 10,000 UNIT/10 ML VIAL. ×2 (15:06→16:59)
[2017-06-07] MEDS ORDERED: ROCURONIUM 100 MG/10 ML VIAL. (15:13)
[2017-06-07] MEDS ORDERED: NEOSTIGMINE 10 MG/10 ML VIAL. (15:27)
[2017-06-07] MEDS ORDERED: GLYCOPYRROLATE 1 MG/5 ML VIAL. (15:27)
[2017-06-07] MEDS ORDERED: ALBUMIN HUMAN 5% 500 ML IV (16:19)
[2017-06-07] MEDS ORDERED: PROTAMINE 50 MG/5 ML VIAL. IV ×2 (16:29→16:38)
[2017-06-07] MEDS: HEPARIN for IV BOLUS 10,000 UNIT/10 ML VIAL. IV (17:00)
[2017-06-07 17:22] LABS: HEMATOCRIT 27.6 % (39.0-53.0); HEMOGLOBIN 9.3 g/dL (13.0-17.5); MEAN CORPUSCULAR HGB CONC 34 g/dL (31-37)
[2017-06-07] MEDS: fentaNYL PF VIAL 100 MCG/2 ML VIAL IV (18:37)
[2017-06-07] MEDS: VANCOMYCIN 500 MG in IV DEXTROSE 5% 100 ML IV (19:00)
[2017-06-07] MEDS: INSULIN DETEMIR 300 UNITS/3 ML INSULN.PEN. SQ (21:00)
[2017-06-07] MEDS: ALPRAZolam 0.25 MG TABLET PO (21:21)
[2017-06-07] MEDS: traZODone 100 MG TABLET. PO (21:22)
[2017-06-07] MEDS: CEFEPIME HCL 1 GM in IV NORMAL SALINE 50ML 50 ML IV (21:24)
[2017-06-07 21:41] LABS: BASO % 0 % (0-3); EOS % 0 % (0-3); HEMATOCRIT 28.9 % (39.0-53.0); HEMOGLOBIN 9.4 g/dL (13.0-17.5); LYMPH # 0.5 x10^3/uL (1.0-4.8); LYMPH % 7 % (24-48); MEAN CORPUSCULAR HEMOGLOBIN 30 pg (25-35); MEAN CORPUSCULAR HGB CONC 33 g/dL (31-37); MEAN CORPUSCULAR VOLUME 93 fL (79-100); MONO # 0.2 x10^3/uL (0.0-1.1); MONO % 2 % (0-9); NEUT # 6.8 x10^3uL (1.8-7.7); NEUT % 91 % (31-73); PLATELET COUNT 213 x10^3/uL (140-400); RED CELL DISTRIBUTION WIDTH 18.5 % (11.5-14.5); WHITE BLOOD COUNT 7.5 x10^3/uL (4.0-11.0)
[2017-06-07 21:46] LABS: ADD MAN DIFF? YES
[2017-06-07 21:55] LABS: INR 1.3 (0.8-1.1); PROTHROMBIN TIME PATIENT 15.5 SEC (11.7-14.0)
[2017-06-07 22:00] LABS: POC GLUCOSE 171 mg/dL (70-99)
[2017-06-07] MEDS: ACETAMINOPHEN 325 MG TABLET. PO (22:51)
[2017-06-08 00:09] LABS: % BANDS 3 % (0-9); % LYMPHS 4 % (24-48); % METAS 1 % (0-0); % MONOS 2 % (0-10); % SEGS 90 % (35-66)
[2017-06-08 00:10] LABS: ANISOCYTOSIS SLIGHT; PLT ESTIMATE ADEQUATE (ADEQUATE)
[2017-06-08] MEDS: CLOPIDOGREL BISULFATE 75 MG TABLET PO ×2 (00:35→13:28)
[2017-06-08] MEDS: ASPIRIN 325 MG TABLET PO ×2 (00:35→13:28)
[2017-06-08] MEDS: oxyCODONE/APAP 10/325 1 TAB TABLET PO ×2 (01:12→13:27)
[2017-06-08] MEDS: INSULIN DETEMIR 300 UNITS/3 ML INSULN.PEN. SQ ×3 (01:22→21:27)
[2017-06-08] MEDS: ALPRAZolam 0.25 MG TABLET PO (06:43)
[2017-06-08] MEDS: traMADol 50 MG TABLET PO (06:44)
[2017-06-08] MEDS ORDERED: IV NORMAL SALINE 1000ML BAG 1,000 ML IV ×2 (07:47)
[2017-06-08 07:57] LABS: ADD MAN DIFF? NO
[2017-06-08] MEDS ORDERED: DIALYSIS PATIENT. MC ×2 (08:00)
[2017-06-08] MEDS ORDERED: ALBUMIN HUMAN 25% 200 ML IV (08:00)
[2017-06-08] MEDS ORDERED: LABETALOL 20 MG/4 ML DISP.SYRIN. IVP (08:00)
[2017-06-08] MEDS ORDERED: diphenhydrAMINE 50 MG/ML VIAL IV ×2 (08:00)
[2017-06-08] MEDS ORDERED: ACETAMINOPHEN 500 MG TABLET PO (08:00)
[2017-06-08] MEDS ORDERED: 0.9 % SODIUM CHLORIDE 10 ML DISP.SYRIN. IV ×2 (08:00)
[2017-06-08 08:07] LABS: BASO % 0 % (0-3); EOS % 1 % (0-3); HEMATOCRIT 28.1 % (39.0-53.0); HEMOGLOBIN 9.1 g/dL (13.0-17.5); LYMPH # 1.1 x10^3/uL (1.0-4.8); LYMPH % 17 % (24-48); MEAN CORPUSCULAR HEMOGLOBIN 30 pg (25-35); MEAN CORPUSCULAR HGB CONC 32 g/dL (31-37); MEAN CORPUSCULAR VOLUME 93 fL (79-100); MONO # 0.7 x10^3/uL (0.0-1.1); MONO % 11 % (0-9); NEUT # 4.6 x10^3uL (1.8-7.7); NEUT % 71 % (31-73); PLATELET COUNT 203 x10^3/uL (140-400); RED BLOOD COUNT 3.02 x10^6/uL (4.30-5.70); RED CELL DISTRIBUTION WIDTH 17.9 % (11.5-14.5); WHITE BLOOD COUNT 6.5 x10^3/uL (4.0-11.0)
[2017-06-08 08:11] LABS: ANION GAP 10 (6-14); BLOOD UREA NITROGEN 35 mg/dL (8-26); CALCIUM 9.2 mg/dL (8.5-10.1); CARBON DIOXIDE 27 mmol/L (21-32); CHLORIDE 99 mmol/L (98-107); CREATININE 2.7 mg/dL (0.7-1.3); GFR 23.2; GLUCOSE 278 mg/dL (70-99); POTASSIUM 4.9 mmol/L (3.5-5.1); SODIUM 136 mmol/L (136-145)
[2017-06-08 08:30] LABS: POC GLUCOSE 252 mg/dL (70-99)
[2017-06-08] MEDS: oxyCODONE ER 10 MG TAB.ER.12H PO ×2 (08:42→21:17)
[2017-06-08] MEDS: INSULIN ASPART 300 UNITS/3 ML INSULN.PEN SQ ×7 (08:50→17:05)
[2017-06-08] MEDS: ALPRAZolam 1 MG TABLET PO (08:51)
[2017-06-08] MEDS: VANCOMYCIN PER PHARMACY MC ×2 (10:58→11:01)
[2017-06-08 13:17] LABS: POC GLUCOSE 104 mg/dL (70-99)
[2017-06-08] MEDS: LACTOBACILLUS RHAMNOSUS GG 1 CAPSULE. PO ×2 (13:28→21:16)
[2017-06-08] MEDS: FLUCONAZOLE 100 MG TABLET. PO (13:28)
[2017-06-08] MEDS: TAMSULOSIN 0.4 MG CAP.ER.24H. PO (13:28)
[2017-06-08] MEDS: VENLAFAXINE XR 37.5 MG CAP.ER.24H. PO (13:28)
[2017-06-08] MEDS: CHOLECALCIFEROL (VITAMIN D3) 1,000 UNIT TABLET PO (13:28)
[2017-06-08] MEDS: busPIRone 10 MG TABLET. PO (13:28)
[2017-06-08] MEDS: MULTIVITAMIN with MINERAL TABLET. PO (13:28)
[2017-06-08] MEDS: POLYETHYLENE GLYCOL 3350 17 GM PACKET. PO (13:29)
[2017-06-08] MEDS: BUMETANIDE 1 MG TABLET. PO (13:29)
[2017-06-08] MEDS: metOLazone 2.5 MG TABLET PO (13:29)
[2017-06-08 16:46] LABS: POC GLUCOSE 179 mg/dL (70-99)
[2017-06-08 20:19] LABS: POC GLUCOSE 175 mg/dL (70-99)
[2017-06-08] MEDS: traZODone 100 MG TABLET. PO (21:16)
[2017-06-08] MEDS: CEFEPIME HCL 1 GM in IV NORMAL SALINE 50ML 50 ML IV (21:17)
[2017-06-09 07:12] LABS: POC GLUCOSE 124 mg/dL (70-99)
[2017-06-09] MEDS: INSULIN ASPART 300 UNITS/3 ML INSULN.PEN SQ ×6 (07:43→17:12)
[2017-06-09 08:07] LABS: ADD MAN DIFF? NO
[2017-06-09] MEDS: CHOLECALCIFEROL (VITAMIN D3) 1,000 UNIT TABLET PO (08:21)
[2017-06-09] MEDS: POLYETHYLENE GLYCOL 3350 17 GM PACKET. PO (08:21)
[2017-06-09] MEDS: CLOPIDOGREL BISULFATE 75 MG TABLET PO (08:21)
[2017-06-09] MEDS: MULTIVITAMIN with MINERAL TABLET. PO (08:21)
[2017-06-09] MEDS: TAMSULOSIN 0.4 MG CAP.ER.24H. PO (08:21)
[2017-06-09] MEDS: metOLazone 2.5 MG TABLET PO (08:21)
[2017-06-09] MEDS: BUMETANIDE 1 MG TABLET. PO (08:21)
[2017-06-09] MEDS: FLUCONAZOLE 100 MG TABLET. PO (08:22)
[2017-06-09] MEDS: busPIRone 10 MG TABLET. PO (08:22)
[2017-06-09] MEDS: LACTOBACILLUS RHAMNOSUS GG 1 CAPSULE. PO ×2 (08:22→20:39)
[2017-06-09] MEDS: VENLAFAXINE XR 37.5 MG CAP.ER.24H. PO (08:22)
[2017-06-09] MEDS: oxyCODONE ER 10 MG TAB.ER.12H PO ×2 (08:22→20:39)
[2017-06-09] MEDS: ASPIRIN 325 MG TABLET PO (08:23)
[2017-06-09 08:25] LABS: ANION GAP 9 (6-14); BLOOD UREA NITROGEN 18 mg/dL (8-26); CALCIUM 8.9 mg/dL (8.5-10.1); CARBON DIOXIDE 31 mmol/L (21-32); CHLORIDE 100 mmol/L (98-107); CREATININE 2.4 mg/dL (0.7-1.3); GFR 26.5; GLUCOSE 139 mg/dL (70-99); SODIUM 140 mmol/L (136-145)
[2017-06-09 08:31] LABS: BASO # 0.1 x10^3/uL (0.0-0.2); BASO % 1 % (0-3); EOS # 0.6 x10^3/uL (0.0-0.7); EOS % 6 % (0-3); HEMATOCRIT 29.6 % (39.0-53.0); HEMOGLOBIN 9.6 g/dL (13.0-17.5); LYMPH # 2.3 x10^3/uL (1.0-4.8); LYMPH % 26 % (24-48); MEAN CORPUSCULAR HEMOGLOBIN 30 pg (25-35); MEAN CORPUSCULAR HGB CONC 32 g/dL (31-37); MEAN CORPUSCULAR VOLUME 94 fL (79-100); MONO # 1.1 x10^3/uL (0.0-1.1); MONO % 13 % (0-9); NEUT # 4.9 x10^3uL (1.8-7.7); NEUT % 55 % (31-73); PLATELET COUNT 220 x10^3/uL (140-400); RED BLOOD COUNT 3.16 x10^6/uL (4.30-5.70); RED CELL DISTRIBUTION WIDTH 18.7 % (11.5-14.5)
[2017-06-09 12:18] LABS: POC GLUCOSE 144 mg/dL (70-99)
[2017-06-09] MEDS: VANCOMYCIN PER PHARMACY MC (13:21)
[2017-06-09] MEDS: VANCOMYCIN 500 MG in IV DEXTROSE 5% 100 ML IV (15:06)
[2017-06-09 16:42] LABS: POC GLUCOSE 177 mg/dL (70-99)
[2017-06-09] MEDS: oxyCODONE/APAP 10/325 1 TAB TABLET PO (17:09)
[2017-06-09 20:01] LABS: POC GLUCOSE 96 mg/dL (70-99)
[2017-06-09] MEDS: CEFEPIME HCL 1 GM in IV NORMAL SALINE 50ML 50 ML IV (20:38)
[2017-06-09] MEDS: traZODone 100 MG TABLET. PO (20:39)
[2017-06-09] MEDS: INSULIN DETEMIR 300 UNITS/3 ML INSULN.PEN. SQ (20:46)
[2017-06-10 04:16] LABS: ADD MAN DIFF? NO
[2017-06-10 05:12] LABS: BASO % 0 % (0-3); EOS # 0.5 x10^3/uL (0.0-0.7); EOS % 5 % (0-3); HEMATOCRIT 28.7 % (39.0-53.0); HEMOGLOBIN 9.3 g/dL (13.0-17.5); LYMPH # 1.8 x10^3/uL (1.0-4.8); LYMPH % 20 % (24-48); MEAN CORPUSCULAR HEMOGLOBIN 30 pg (25-35); MEAN CORPUSCULAR HGB CONC 32 g/dL (31-37); MEAN CORPUSCULAR VOLUME 93 fL (79-100); MONO % 11 % (0-9); NEUT # 5.6 x10^3uL (1.8-7.7); NEUT % 63 % (31-73); PLATELET COUNT 219 x10^3/uL (140-400); RED CELL DISTRIBUTION WIDTH 18.6 % (11.5-14.5); WHITE BLOOD COUNT 8.8 x10^3/uL (4.0-11.0)
[2017-06-10 05:36] LABS: ANION GAP 7 (6-14); BLOOD UREA NITROGEN 21 mg/dL (8-26); CALCIUM 8.9 mg/dL (8.5-10.1); CARBON DIOXIDE 29 mmol/L (21-32); CHLORIDE 99 mmol/L (98-107); CREATININE 2.8 mg/dL (0.7-1.3); GFR 22.2; GLUCOSE 48 mg/dL (70-99); POTASSIUM 3.9 mmol/L (3.5-5.1); SODIUM 135 mmol/L (136-145)
[2017-06-10] MEDS: DEXTROSE 50% 25 GM / 50ML DISP.SYRIN. IV (05:49)
[2017-06-10 06:17] LABS: POC GLUCOSE 110 mg/dL (70-99)
[2017-06-10 06:17] LABS: POC GLUCOSE 45 mg/dL (70-99)
[2017-06-10] MEDS: INSULIN ASPART 300 UNITS/3 ML INSULN.PEN SQ ×6 (07:30→17:00)
[2017-06-10 07:55] LABS: POC GLUCOSE 88 mg/dL (70-99)
[2017-06-10] MEDS: ASPIRIN 325 MG TABLET PO (08:46)
[2017-06-10] MEDS: oxyCODONE ER 10 MG TAB.ER.12H PO ×2 (08:46→21:17)
[2017-06-10] MEDS: ALPRAZolam 1 MG TABLET PO (08:46)
[2017-06-10] MEDS: CLOPIDOGREL BISULFATE 75 MG TABLET PO (08:46)
[2017-06-10] MEDS: metOLazone 2.5 MG TABLET PO (09:00)
[2017-06-10] MEDS: BUMETANIDE 1 MG TABLET. PO (09:00)
[2017-06-10] MEDS: POLYETHYLENE GLYCOL 3350 17 GM PACKET. PO (09:00)
[2017-06-10] MEDS: VENLAFAXINE XR 37.5 MG CAP.ER.24H. PO (09:00)
[2017-06-10] MEDS: TAMSULOSIN 0.4 MG CAP.ER.24H. PO (09:00)
[2017-06-10] MEDS: CHOLECALCIFEROL (VITAMIN D3) 1,000 UNIT TABLET PO (09:00)
[2017-06-10] MEDS: busPIRone 10 MG TABLET. PO (09:00)
[2017-06-10] MEDS: MULTIVITAMIN with MINERAL TABLET. PO (09:00)
[2017-06-10] MEDS: LACTOBACILLUS RHAMNOSUS GG 1 CAPSULE. PO ×2 (09:00→21:17)
[2017-06-10] MEDS: FLUCONAZOLE 100 MG TABLET. PO (09:00)
[2017-06-10] MEDS ORDERED: IV NORMAL SALINE 1000ML BAG 1,000 ML IV (09:37)
[2017-06-10] MEDS ORDERED: DIALYSIS PATIENT. MC (09:45)
[2017-06-10] MEDS: VANCOMYCIN PER PHARMACY MC (10:43)
[2017-06-10] MEDS: ALBUMIN HUMAN 25% 200 ML IV ×2 (12:06→12:25)
[2017-06-10] MEDS: VANCOMYCIN 500 MG in IV DEXTROSE 5% 100 ML IV (16:00)
[2017-06-10] MEDS ORDERED: VANCOMYCIN 1 GM in IV DEXTROSE 5% 250 ML IV (16:00)
[2017-06-10 17:56] LABS: POC GLUCOSE 105 mg/dL (70-99)
[2017-06-10 20:43] LABS: POC GLUCOSE 120 mg/dL (70-99)
[2017-06-10] MEDS: traZODone 100 MG TABLET. PO (21:17)
[2017-06-10] MEDS: CEFEPIME HCL 1 GM in IV NORMAL SALINE 50ML 50 ML IV (21:17)
[2017-06-10] MEDS: INSULIN DETEMIR 300 UNITS/3 ML INSULN.PEN. SQ (21:24)
[2017-06-11 05:09] LABS: ADD MAN DIFF? NO
[2017-06-11 05:17] LABS: BASO # 0.1 x10^3/uL (0.0-0.2); BASO % 1 % (0-3); EOS # 0.6 x10^3/uL (0.0-0.7); EOS % 8 % (0-3); HEMATOCRIT 28.5 % (39.0-53.0); HEMOGLOBIN 9.3 g/dL (13.0-17.5); LYMPH # 1.8 x10^3/uL (1.0-4.8); LYMPH % 26 % (24-48); MEAN CORPUSCULAR HEMOGLOBIN 30 pg (25-35); MEAN CORPUSCULAR HGB CONC 33 g/dL (31-37); MEAN CORPUSCULAR VOLUME 93 fL (79-100); MONO # 0.7 x10^3/uL (0.0-1.1); MONO % 10 % (0-9); NEUT # 3.9 x10^3uL (1.8-7.7); NEUT % 55 % (31-73); PLATELET COUNT 223 x10^3/uL (140-400); RED BLOOD COUNT 3.07 x10^6/uL (4.30-5.70); RED CELL DISTRIBUTION WIDTH 18.6 % (11.5-14.5); WHITE BLOOD COUNT 7.1 x10^3/uL (4.0-11.0)
[2017-06-11 05:37] LABS: ALBUMIN 3.1 g/dL (3.4-5.0); ALBUMIN/GLOBULIN RATIO 0.7 (1.0-1.7); BLOOD UREA NITROGEN 16 mg/dL (8-26); BUN/CREATININE RATIO 7 (6-20); CALCIUM 9.3 mg/dL (8.5-10.1); CREATININE 2.3 mg/dL (0.7-1.3); GFR 27.9; GLUCOSE 108 mg/dL (70-99); TOTAL BILIRUBIN 0.7 mg/dL (0.2-1.0); TOTAL PROTEIN 7.4 g/dL (6.4-8.2)
[2017-06-11 05:38] LABS: ALK PHOS 69 U/L (46-116); ALT (SGPT) 16 U/L (16-63); ANION GAP 7 (6-14); AST (SGOT) 23 U/L (15-37); CARBON DIOXIDE 31 mmol/L (21-32); CHLORIDE 98 mmol/L (98-107); POTASSIUM 4.6 mmol/L (3.5-5.1); SODIUM 136 mmol/L (136-145)
[2017-06-11] MEDS: INSULIN ASPART 300 UNITS/3 ML INSULN.PEN SQ ×6 (07:30→16:39)
[2017-06-11] MEDS: BUMETANIDE 1 MG TABLET. PO (09:23)
[2017-06-11] MEDS: TAMSULOSIN 0.4 MG CAP.ER.24H. PO (09:24)
[2017-06-11] MEDS: oxyCODONE ER 10 MG TAB.ER.12H PO ×2 (09:24→20:28)
[2017-06-11] MEDS: FLUCONAZOLE 100 MG TABLET. PO (09:24)
[2017-06-11] MEDS: LACTOBACILLUS RHAMNOSUS GG 1 CAPSULE. PO ×2 (09:24→20:29)
[2017-06-11] MEDS: ASPIRIN 325 MG TABLET PO (09:24)
[2017-06-11] MEDS: busPIRone 10 MG TABLET. PO (09:24)
[2017-06-11] MEDS: VENLAFAXINE XR 37.5 MG CAP.ER.24H. PO (09:24)
[2017-06-11] MEDS: DOCUSATE SODIUM 100 MG CAPSULE. PO (09:24)
[2017-06-11] MEDS: POLYETHYLENE GLYCOL 3350 17 GM PACKET. PO (09:25)
[2017-06-11] MEDS: MULTIVITAMIN with MINERAL TABLET. PO (09:25)
[2017-06-11] MEDS: CLOPIDOGREL BISULFATE 75 MG TABLET PO (09:25)
[2017-06-11] MEDS: metOLazone 2.5 MG TABLET PO (09:25)
[2017-06-11] MEDS: CHOLECALCIFEROL (VITAMIN D3) 1,000 UNIT TABLET PO (09:25)
[2017-06-11] MEDS: VANCOMYCIN PER PHARMACY MC (10:31)
[2017-06-11 10:39] LABS: POC GLUCOSE 89 mg/dL (70-99)
[2017-06-11 12:16] LABS: POC GLUCOSE 182 mg/dL (70-99)
[2017-06-11] MEDS: ALPRAZolam 0.25 MG TABLET PO ×2 (12:46→20:29)
[2017-06-11] MEDS: oxyCODONE/APAP 10/325 1 TAB TABLET PO (12:46)
[2017-06-11 16:15] LABS: POC GLUCOSE 163 mg/dL (70-99)
[2017-06-11] MEDS: CEFEPIME HCL 1 GM in IV NORMAL SALINE 50ML 50 ML IV (20:28)
[2017-06-11] MEDS: DARBEPOETIN ALFA 100 MCG/0.5 ML DISP.SYRIN. SQ (20:29)
[2017-06-11] MEDS: traZODone 100 MG TABLET. PO (20:29)
[2017-06-11] MEDS: INSULIN DETEMIR 300 UNITS/3 ML INSULN.PEN. SQ (21:00)
[2017-06-11 21:07] LABS: POC GLUCOSE 152 mg/dL (70-99)
[2017-06-12] MEDS: INSULIN ASPART 300 UNITS/3 ML INSULN.PEN SQ ×5 (08:00→17:00)
[2017-06-12 08:07] LABS: POC GLUCOSE 146 mg/dL (70-99)
[2017-06-12] MEDS: VENLAFAXINE XR 37.5 MG CAP.ER.24H. PO (09:00)
[2017-06-12] MEDS: FLUCONAZOLE 100 MG TABLET. PO (09:13)
[2017-06-12] MEDS: TAMSULOSIN 0.4 MG CAP.ER.24H. PO (09:13)
[2017-06-12] MEDS: CHOLECALCIFEROL (VITAMIN D3) 1,000 UNIT TABLET PO (09:14)
[2017-06-12] MEDS: CLOPIDOGREL BISULFATE 75 MG TABLET PO (09:14)
[2017-06-12] MEDS: LACTOBACILLUS RHAMNOSUS GG 1 CAPSULE. PO (09:14)
[2017-06-12] MEDS: ASPIRIN 325 MG TABLET PO (09:14)
[2017-06-12] MEDS: oxyCODONE ER 10 MG TAB.ER.12H PO (09:14)
[2017-06-12] MEDS: MULTIVITAMIN with MINERAL TABLET. PO (09:14)
[2017-06-12] MEDS: busPIRone 10 MG TABLET. PO (09:14)
[2017-06-12] MEDS: POLYETHYLENE GLYCOL 3350 17 GM PACKET. PO (09:15)
[2017-06-12] MEDS: ALPRAZolam 1 MG TABLET PO (09:35)
[2017-06-12] MEDS ORDERED: IV NORMAL SALINE 1000ML BAG 1,000 ML IV (09:48)
[2017-06-12] MEDS ORDERED: ALBUMIN HUMAN 25% 200 ML IV (10:00)
[2017-06-12] MEDS ORDERED: DIALYSIS PATIENT. MC (10:00)
[2017-06-12 13:11] LABS: POC GLUCOSE 137 mg/dL (70-99)
[2017-06-12 13:11] LABS: POC GLUCOSE 196 mg/dL (70-99)
[2017-06-12] MEDS ORDERED: MAGNESIUM SULFATE 2GM 50 ML IV (15:00)
[2017-06-12] MEDS: oxyCODONE/APAP 10/325 1 TAB TABLET PO (15:38)
[2017-06-12] MEDS ORDERED: VANCOMYCIN 500 MG in IV DEXTROSE 5% 100 ML IV (16:00)
[2017-06-12] MEDS: diphenhydrAMINE 50 MG/ML VIAL IVP (17:19)
[2017-06-12] MEDS ORDERED: diphenhydrAMINE 50 MG/ML VIAL (17:22)
== END 2017-06-12 18:50 | DRG 252 ==
LOC: 4 NORTH 10:22
PROVIDERS: Internal Medicine
PROC: 0Y6U0Z0 Detachment at Left 3rd Toe, Complete, Open Approach (ICD-10-PCS; principal; 2017-05-31 14:00)
PROC: 0Y6W0Z0 Detachment at Left 4th Toe, Complete, Open Approach (ICD-10-PCS; 2017-05-31 14:00)
PROC: 041L0KQ Bypass Left Femoral Artery to Lower Extremity Artery with Nonautologous Tissue Substitute, Open Approach (ICD-10-PCS; 2017-05-31 15:10)
PROC: 0X380ZZ Control Bleeding in Right Upper Arm, Open Approach (ICD-10-PCS; 2017-05-31 15:10)
PROC: 0JBR0ZZ Excision of Left Foot Subcutaneous Tissue and Fascia, Open Approach (ICD-10-PCS; 2017-05-31 15:10)
PROC: 05HM33Z Insertion of Infusion Device into Right Internal Jugular Vein, Percutaneous Approach (ICD-10-PCS; 2017-05-31 15:10)
PROC: 02HV33Z Insertion of Infusion Device into Superior Vena Cava, Percutaneous Approach (ICD-10-PCS; 2017-05-31 15:10)
PROC: 5A1D70Z Performance of Urinary Filtration, Intermittent, Less than 6 Hours Per Day (ICD-10-PCS; 2017-05-31 15:10)
PROC: 5A1D70Z Performance of Urinary Filtration, Intermittent, Less than 6 Hours Per Day (ICD-10-PCS; 2017-05-31 15:10)
PROC: 5A1D70Z Performance of Urinary Filtration, Intermittent, Less than 6 Hours Per Day (ICD-10-PCS; 2017-05-31 15:10)
PROC: 5A1D70Z Performance of Urinary Filtration, Intermittent, Less than 6 Hours Per Day (ICD-10-PCS; 2017-05-31 15:10)
PROC: 5A1D70Z Performance of Urinary Filtration, Intermittent, Less than 6 Hours Per Day (ICD-10-PCS; 2017-05-31 15:10)
PROC: 5A1D70Z Performance of Urinary Filtration, Intermittent, Less than 6 Hours Per Day (ICD-10-PCS; 2017-05-31 15:10)
DX: E11.52 Type 2 diabetes mellitus with diabetic peripheral angiopathy with gangrene (principal); N18.6 End stage renal disease; I13.2 Hypertensive heart and chronic kidney disease with heart failure and with stage 5 chronic kidney disease, or end stage renal disease; E11.22 Type 2 diabetes mellitus with diabetic chronic kidney disease; E11.621 Type 2 diabetes mellitus with foot ulcer; L03.115 Cellulitis of right lower limb; L03.116 Cellulitis of left lower limb; E11.65 Type 2 diabetes mellitus with hyperglycemia; D64.9 Anemia, unspecified; B35.1 Tinea unguium; L97.524 Non-pressure chronic ulcer of other part of left foot with necrosis of bone; E11.649 Type 2 diabetes mellitus with hypoglycemia without coma; E66.9 Obesity, unspecified; E78.5 Hyperlipidemia, unspecified; F17.200 Nicotine dependence, unspecified, uncomplicated; I25.10 Atherosclerotic heart disease of native coronary artery without angina pectoris; I25.2 Old myocardial infarction; I50.9 Heart failure, unspecified; I70.202 Unspecified atherosclerosis of native arteries of extremities, left leg; L60.0 Ingrowing nail; L60.1 Onycholysis; Z68.38 Body mass index [BMI] 38.0-38.9, adult; Z82.49 Family history of ischemic heart disease and other diseases of the circulatory system; Z95.1 Presence of aortocoronary bypass graft; Z95.820 Peripheral vascular angioplasty status with implants and grafts; Z99.2 Dependence on renal dialysis; E11.622 Type 2 diabetes mellitus with other skin ulcer; K59.00 Constipation, unspecified; L98.499 Non-pressure chronic ulcer of skin of other sites with unspecified severity
CPT/HCPCS: 36246; 36415; 71045; 71046; 75710; 76937; 80048; 80053; 80202; 82962; 85007; 85014; 85018; 85025; 85610; 86850; 86900; 86901; 87340; 88305; 88311; 93926; 93931; 93970; 93971; 97110-GO; 97110-GP; 97163-GP; 97164-GP; 97166-GO; 97530-GO; 97530-GP; 97535-GO; 99152; 99153; A4215; C1713; C1753; C1760; C1768; C1769; C1892; C1894; G0269; J0690; J0692; J0881; J1100; J1170; J1200; J1644; J1815; J2250; J2270; J2405; J2543; J2704; J2710; J3010; J3370; J3490; J7030; J7040; J7042; J7120; P9045; P9046; Q9967

== ENCOUNTER → 2017-08-05 | Outpatient (CLI) | payer OTHER | END | disposition home or self-care (01) | LOC: PMGWOUND 10:50 | DX: E11.621 Type 2 diabetes mellitus with foot ulcer (principal); L97.521 Non-pressure chronic ulcer of other part of left foot limited to breakdown of skin; L97.511 Non-pressure chronic ulcer of other part of right foot limited to breakdown of skin; F41.9 Anxiety disorder, unspecified; I25.10 Atherosclerotic heart disease of native coronary artery without angina pectoris; J44.9 Chronic obstructive pulmonary disease, unspecified; E11.22 Type 2 diabetes mellitus with diabetic chronic kidney disease; I13.2 Hypertensive heart and chronic kidney disease with heart failure and with stage 5 chronic kidney disease, or end stage renal disease; N18.6 End stage renal disease; I50.9 Heart failure, unspecified; E11.52 Type 2 diabetes mellitus with diabetic peripheral angiopathy with gangrene; I96 Gangrene, not elsewhere classified; E78.5 Hyperlipidemia, unspecified; F32.9 Major depressive disorder, single episode, unspecified; E66.01 Morbid (severe) obesity due to excess calories; I25.2 Old myocardial infarction; G89.29 Other chronic pain; F17.200 Nicotine dependence, unspecified, uncomplicated; Z95.1 Presence of aortocoronary bypass graft; Z68.38 Body mass index [BMI] 38.0-38.9, adult; Z79.4 Long term (current) use of insulin; Z99.2 Dependence on renal dialysis | CPT/HCPCS: 97597 ==

== ENCOUNTER → 2017-08-21 | Outpatient (CLI) | payer OTHER | END | disposition home or self-care (01) | LOC: PMGWOUND 09:38 | DX: E11.621 Type 2 diabetes mellitus with foot ulcer (principal); L97.524 Non-pressure chronic ulcer of other part of left foot with necrosis of bone; L97.511 Non-pressure chronic ulcer of other part of right foot limited to breakdown of skin; L97.221 Non-pressure chronic ulcer of left calf limited to breakdown of skin; F41.9 Anxiety disorder, unspecified; I25.10 Atherosclerotic heart disease of native coronary artery without angina pectoris; J44.9 Chronic obstructive pulmonary disease, unspecified; E11.22 Type 2 diabetes mellitus with diabetic chronic kidney disease; I13.2 Hypertensive heart and chronic kidney disease with heart failure and with stage 5 chronic kidney disease, or end stage renal disease; N18.6 End stage renal disease; I50.9 Heart failure, unspecified; E11.52 Type 2 diabetes mellitus with diabetic peripheral angiopathy with gangrene; I96 Gangrene, not elsewhere classified; E78.5 Hyperlipidemia, unspecified; F32.9 Major depressive disorder, single episode, unspecified; I48.2 Chronic atrial fibrillation; E66.01 Morbid (severe) obesity due to excess calories; I25.2 Old myocardial infarction; G89.29 Other chronic pain; F17.200 Nicotine dependence, unspecified, uncomplicated; Z95.1 Presence of aortocoronary bypass graft; Z68.38 Body mass index [BMI] 38.0-38.9, adult; Z79.4 Long term (current) use of insulin; Z99.2 Dependence on renal dialysis; I87.313 Chronic venous hypertension (idiopathic) with ulcer of bilateral lower extremity | CPT/HCPCS: 97597; 97598 ==

== ENCOUNTER → 2017-08-28 | Outpatient (CLI) | payer OTHER | END | disposition home or self-care (01) | LOC: PMGWOUND 08:13 | DX: E11.621 Type 2 diabetes mellitus with foot ulcer (principal); L97.524 Non-pressure chronic ulcer of other part of left foot with necrosis of bone; L97.511 Non-pressure chronic ulcer of other part of right foot limited to breakdown of skin; L97.221 Non-pressure chronic ulcer of left calf limited to breakdown of skin; I87.313 Chronic venous hypertension (idiopathic) with ulcer of bilateral lower extremity; F41.9 Anxiety disorder, unspecified; I25.10 Atherosclerotic heart disease of native coronary artery without angina pectoris; J44.9 Chronic obstructive pulmonary disease, unspecified; E11.22 Type 2 diabetes mellitus with diabetic chronic kidney disease; I13.2 Hypertensive heart and chronic kidney disease with heart failure and with stage 5 chronic kidney disease, or end stage renal disease; N18.6 End stage renal disease; I50.9 Heart failure, unspecified; E11.52 Type 2 diabetes mellitus with diabetic peripheral angiopathy with gangrene; I96 Gangrene, not elsewhere classified; E78.5 Hyperlipidemia, unspecified; F32.9 Major depressive disorder, single episode, unspecified; I48.2 Chronic atrial fibrillation; E66.01 Morbid (severe) obesity due to excess calories; I25.2 Old myocardial infarction; G89.29 Other chronic pain; F17.200 Nicotine dependence, unspecified, uncomplicated; Z95.1 Presence of aortocoronary bypass graft; Z68.38 Body mass index [BMI] 38.0-38.9, adult; Z79.4 Long term (current) use of insulin; Z99.2 Dependence on renal dialysis | CPT/HCPCS: 11042; 97605 ==

== ENCOUNTER → 2017-09-05 | Outpatient (CLI) | payer OTHER | END | disposition home or self-care (01) | LOC: PMGWOUND 08:13 | DX: E11.621 Type 2 diabetes mellitus with foot ulcer (principal); L97.524 Non-pressure chronic ulcer of other part of left foot with necrosis of bone; L97.511 Non-pressure chronic ulcer of other part of right foot limited to breakdown of skin; L97.221 Non-pressure chronic ulcer of left calf limited to breakdown of skin; I87.313 Chronic venous hypertension (idiopathic) with ulcer of bilateral lower extremity; F41.9 Anxiety disorder, unspecified; I25.10 Atherosclerotic heart disease of native coronary artery without angina pectoris; J44.9 Chronic obstructive pulmonary disease, unspecified; E11.22 Type 2 diabetes mellitus with diabetic chronic kidney disease; I13.2 Hypertensive heart and chronic kidney disease with heart failure and with stage 5 chronic kidney disease, or end stage renal disease; N18.6 End stage renal disease; I50.9 Heart failure, unspecified; E11.52 Type 2 diabetes mellitus with diabetic peripheral angiopathy with gangrene; I96 Gangrene, not elsewhere classified; E78.5 Hyperlipidemia, unspecified; F32.9 Major depressive disorder, single episode, unspecified; I48.2 Chronic atrial fibrillation; E66.01 Morbid (severe) obesity due to excess calories; I25.2 Old myocardial infarction; G89.29 Other chronic pain; F17.200 Nicotine dependence, unspecified, uncomplicated; Z95.1 Presence of aortocoronary bypass graft; Z68.38 Body mass index [BMI] 38.0-38.9, adult; Z79.4 Long term (current) use of insulin; Z99.2 Dependence on renal dialysis | CPT/HCPCS: 11042; 11045; 97597 ==

== ENCOUNTER → 2017-09-11 | Outpatient (CLI) | payer OTHER | END | disposition home or self-care (01) | LOC: PMGWOUND 08:09 | DX: E11.621 Type 2 diabetes mellitus with foot ulcer (principal); L97.524 Non-pressure chronic ulcer of other part of left foot with necrosis of bone; L97.511 Non-pressure chronic ulcer of other part of right foot limited to breakdown of skin; E11.622 Type 2 diabetes mellitus with other skin ulcer; L97.221 Non-pressure chronic ulcer of left calf limited to breakdown of skin; I87.313 Chronic venous hypertension (idiopathic) with ulcer of bilateral lower extremity; F41.9 Anxiety disorder, unspecified; I25.10 Atherosclerotic heart disease of native coronary artery without angina pectoris; J44.9 Chronic obstructive pulmonary disease, unspecified; E11.22 Type 2 diabetes mellitus with diabetic chronic kidney disease; I13.2 Hypertensive heart and chronic kidney disease with heart failure and with stage 5 chronic kidney disease, or end stage renal disease; N18.6 End stage renal disease; I50.9 Heart failure, unspecified; E11.52 Type 2 diabetes mellitus with diabetic peripheral angiopathy with gangrene; I96 Gangrene, not elsewhere classified; E78.5 Hyperlipidemia, unspecified; F32.9 Major depressive disorder, single episode, unspecified; I48.2 Chronic atrial fibrillation; E66.01 Morbid (severe) obesity due to excess calories; I25.2 Old myocardial infarction; G89.29 Other chronic pain; F17.200 Nicotine dependence, unspecified, uncomplicated; Z95.1 Presence of aortocoronary bypass graft; Z68.38 Body mass index [BMI] 38.0-38.9, adult; Z79.4 Long term (current) use of insulin; Z99.2 Dependence on renal dialysis | CPT/HCPCS: 11042; 11045; 97605 ==

== ENCOUNTER → 2017-09-18 | Outpatient (CLI) | payer OTHER | END | disposition home or self-care (01) | LOC: PMGWOUND 08:13 | DX: E11.621 Type 2 diabetes mellitus with foot ulcer (principal); L97.524 Non-pressure chronic ulcer of other part of left foot with necrosis of bone; L97.511 Non-pressure chronic ulcer of other part of right foot limited to breakdown of skin; E11.622 Type 2 diabetes mellitus with other skin ulcer; L97.221 Non-pressure chronic ulcer of left calf limited to breakdown of skin; I70.203 Unspecified atherosclerosis of native arteries of extremities, bilateral legs; I87.313 Chronic venous hypertension (idiopathic) with ulcer of bilateral lower extremity; F41.9 Anxiety disorder, unspecified; I25.10 Atherosclerotic heart disease of native coronary artery without angina pectoris; J44.9 Chronic obstructive pulmonary disease, unspecified; I48.2 Chronic atrial fibrillation; E11.52 Type 2 diabetes mellitus with diabetic peripheral angiopathy with gangrene; I96 Gangrene, not elsewhere classified; E78.5 Hyperlipidemia, unspecified; F32.9 Major depressive disorder, single episode, unspecified; E66.01 Morbid (severe) obesity due to excess calories; I25.2 Old myocardial infarction; G89.29 Other chronic pain; E11.22 Type 2 diabetes mellitus with diabetic chronic kidney disease; I13.2 Hypertensive heart and chronic kidney disease with heart failure and with stage 5 chronic kidney disease, or end stage renal disease; N18.6 End stage renal disease; I50.9 Heart failure, unspecified; Z99.2 Dependence on renal dialysis; Z95.1 Presence of aortocoronary bypass graft; Z68.38 Body mass index [BMI] 38.0-38.9, adult; Z79.4 Long term (current) use of insulin | CPT/HCPCS: 73630; 97597; 97598; 97605 ==

== ENCOUNTER → 2017-09-24 | Outpatient (CLI) | payer MEDICARE, OTHER | END | disposition home or self-care (01) | LOC: PMGWOUND 13:08 | DX: E11.621 Type 2 diabetes mellitus with foot ulcer (principal); L97.524 Non-pressure chronic ulcer of other part of left foot with necrosis of bone; L97.511 Non-pressure chronic ulcer of other part of right foot limited to breakdown of skin; E11.622 Type 2 diabetes mellitus with other skin ulcer; L97.221 Non-pressure chronic ulcer of left calf limited to breakdown of skin; I87.313 Chronic venous hypertension (idiopathic) with ulcer of bilateral lower extremity; F41.9 Anxiety disorder, unspecified; I25.10 Atherosclerotic heart disease of native coronary artery without angina pectoris; J44.9 Chronic obstructive pulmonary disease, unspecified; E11.22 Type 2 diabetes mellitus with diabetic chronic kidney disease; I13.2 Hypertensive heart and chronic kidney disease with heart failure and with stage 5 chronic kidney disease, or end stage renal disease; N18.6 End stage renal disease; I50.9 Heart failure, unspecified; E11.52 Type 2 diabetes mellitus with diabetic peripheral angiopathy with gangrene; I96 Gangrene, not elsewhere classified; E78.5 Hyperlipidemia, unspecified; F32.9 Major depressive disorder, single episode, unspecified; I48.2 Chronic atrial fibrillation; E66.01 Morbid (severe) obesity due to excess calories; I25.2 Old myocardial infarction; G89.29 Other chronic pain; F17.200 Nicotine dependence, unspecified, uncomplicated; Z95.1 Presence of aortocoronary bypass graft; Z68.38 Body mass index [BMI] 38.0-38.9, adult; Z79.4 Long term (current) use of insulin; Z99.2 Dependence on renal dialysis | CPT/HCPCS: 11042; 11045; 93926 ==

== ENCOUNTER → 2017-10-02 | Outpatient (CLI) | payer MEDICARE | END | disposition home or self-care (01) | LOC: PMGWOUND 08:11 | DX: E11.621 Type 2 diabetes mellitus with foot ulcer (principal); L97.524 Non-pressure chronic ulcer of other part of left foot with necrosis of bone; L97.511 Non-pressure chronic ulcer of other part of right foot limited to breakdown of skin; I70.203 Unspecified atherosclerosis of native arteries of extremities, bilateral legs; F41.9 Anxiety disorder, unspecified; I25.10 Atherosclerotic heart disease of native coronary artery without angina pectoris; I48.2 Chronic atrial fibrillation; J44.9 Chronic obstructive pulmonary disease, unspecified; E11.52 Type 2 diabetes mellitus with diabetic peripheral angiopathy with gangrene; I96 Gangrene, not elsewhere classified; E11.22 Type 2 diabetes mellitus with diabetic chronic kidney disease; I13.2 Hypertensive heart and chronic kidney disease with heart failure and with stage 5 chronic kidney disease, or end stage renal disease; N18.6 End stage renal disease; I50.9 Heart failure, unspecified; E78.5 Hyperlipidemia, unspecified; F32.9 Major depressive disorder, single episode, unspecified; I25.2 Old myocardial infarction; G89.29 Other chronic pain; E66.01 Morbid (severe) obesity due to excess calories; F17.210 Nicotine dependence, cigarettes, uncomplicated; Z95.1 Presence of aortocoronary bypass graft; Z99.2 Dependence on renal dialysis; Z79.4 Long term (current) use of insulin; Z68.38 Body mass index [BMI] 38.0-38.9, adult | CPT/HCPCS: 97597; 97598; 97605 ==

== ENCOUNTER → 2017-10-09 | Outpatient (CLI) | payer MEDICARE | END | disposition home or self-care (01) | LOC: PMGWOUND 08:30 | DX: E11.621 Type 2 diabetes mellitus with foot ulcer (principal); L97.524 Non-pressure chronic ulcer of other part of left foot with necrosis of bone; L97.511 Non-pressure chronic ulcer of other part of right foot limited to breakdown of skin; F41.9 Anxiety disorder, unspecified; I25.10 Atherosclerotic heart disease of native coronary artery without angina pectoris; I48.2 Chronic atrial fibrillation; J44.9 Chronic obstructive pulmonary disease, unspecified; E11.52 Type 2 diabetes mellitus with diabetic peripheral angiopathy with gangrene; I96 Gangrene, not elsewhere classified; E11.22 Type 2 diabetes mellitus with diabetic chronic kidney disease; I13.2 Hypertensive heart and chronic kidney disease with heart failure and with stage 5 chronic kidney disease, or end stage renal disease; N18.6 End stage renal disease; I50.9 Heart failure, unspecified; E78.5 Hyperlipidemia, unspecified; F32.9 Major depressive disorder, single episode, unspecified; E66.01 Morbid (severe) obesity due to excess calories; I25.2 Old myocardial infarction; F17.210 Nicotine dependence, cigarettes, uncomplicated; G89.29 Other chronic pain; Z95.1 Presence of aortocoronary bypass graft; Z68.38 Body mass index [BMI] 38.0-38.9, adult; Z79.4 Long term (current) use of insulin; Z99.2 Dependence on renal dialysis | CPT/HCPCS: 11042; 97597; 97598; 97605 ==

== ENCOUNTER → 2017-10-16 | Outpatient (CLI) | payer MEDICARE | END | disposition home or self-care (01) | LOC: PMGWOUND 08:17 | DX: E11.621 Type 2 diabetes mellitus with foot ulcer (principal); L97.524 Non-pressure chronic ulcer of other part of left foot with necrosis of bone; L97.511 Non-pressure chronic ulcer of other part of right foot limited to breakdown of skin; F41.9 Anxiety disorder, unspecified; I25.10 Atherosclerotic heart disease of native coronary artery without angina pectoris; I48.2 Chronic atrial fibrillation; J44.9 Chronic obstructive pulmonary disease, unspecified; E11.52 Type 2 diabetes mellitus with diabetic peripheral angiopathy with gangrene; I96 Gangrene, not elsewhere classified; E11.22 Type 2 diabetes mellitus with diabetic chronic kidney disease; I13.2 Hypertensive heart and chronic kidney disease with heart failure and with stage 5 chronic kidney disease, or end stage renal disease; N18.6 End stage renal disease; I50.9 Heart failure, unspecified; E78.5 Hyperlipidemia, unspecified; F32.9 Major depressive disorder, single episode, unspecified; E66.01 Morbid (severe) obesity due to excess calories; I25.2 Old myocardial infarction; F17.210 Nicotine dependence, cigarettes, uncomplicated; G89.29 Other chronic pain; Z95.1 Presence of aortocoronary bypass graft; Z68.38 Body mass index [BMI] 38.0-38.9, adult; Z79.4 Long term (current) use of insulin; Z99.2 Dependence on renal dialysis | CPT/HCPCS: 11042; 97597; 97598 ==

== ENCOUNTER → 2017-10-23 | Outpatient (CLI) | payer MEDICARE | END | disposition home or self-care (01) | LOC: PMGWOUND 08:13 | DX: E11.621 Type 2 diabetes mellitus with foot ulcer (principal); L97.524 Non-pressure chronic ulcer of other part of left foot with necrosis of bone; L97.511 Non-pressure chronic ulcer of other part of right foot limited to breakdown of skin; F41.9 Anxiety disorder, unspecified; I25.10 Atherosclerotic heart disease of native coronary artery without angina pectoris; I70.203 Unspecified atherosclerosis of native arteries of extremities, bilateral legs; I48.2 Chronic atrial fibrillation; J44.9 Chronic obstructive pulmonary disease, unspecified; E11.52 Type 2 diabetes mellitus with diabetic peripheral angiopathy with gangrene; I96 Gangrene, not elsewhere classified; E11.22 Type 2 diabetes mellitus with diabetic chronic kidney disease; I13.2 Hypertensive heart and chronic kidney disease with heart failure and with stage 5 chronic kidney disease, or end stage renal disease; N18.6 End stage renal disease; I50.9 Heart failure, unspecified; E78.5 Hyperlipidemia, unspecified; F32.9 Major depressive disorder, single episode, unspecified; E66.01 Morbid (severe) obesity due to excess calories; I25.2 Old myocardial infarction; F17.210 Nicotine dependence, cigarettes, uncomplicated; G89.29 Other chronic pain; Z95.1 Presence of aortocoronary bypass graft; Z68.38 Body mass index [BMI] 38.0-38.9, adult; Z79.4 Long term (current) use of insulin; Z99.2 Dependence on renal dialysis | CPT/HCPCS: 97597; 97605 ==

== ENCOUNTER → 2017-10-30 | Outpatient (CLI) | payer MEDICARE ==
[2017-06-26 13:00] VITALS: BP 111/52
[~2017-10-30] MED LIST changes: +ALPR1TAB2 PO; -ASPI81TA44 PO; +ASPI81TA59 PO; +BUSP10TA PO; -METF-620 PO; +METF10003 PO; +OXYC10TA PO; +OXYC10TA45 PO; +POLY17PO29 PO; -SPIR25TA3 PO; +SPIR25TA5 PO; +TEMA30CA PO; +TRAZ-85 PO; +TRAZ-86 PO; -TRAZ50TA15 PO; +VENL37.5 PO; +WARF-31 PO; -WARF5TAB7 PO
== END | disposition home or self-care (01) ==
LOC: PMGWOUND 08:10
PROVIDERS: ATTEND Preventive Medicine Undersea and Hyperbaric Medicine
DX: E11.621 Type 2 diabetes mellitus with foot ulcer (principal); L97.511 Non-pressure chronic ulcer of other part of right foot limited to breakdown of skin; L97.524 Non-pressure chronic ulcer of other part of left foot with necrosis of bone; F41.9 Anxiety disorder, unspecified; I25.10 Atherosclerotic heart disease of native coronary artery without angina pectoris; I70.203 Unspecified atherosclerosis of native arteries of extremities, bilateral legs; I48.2 Chronic atrial fibrillation; J44.9 Chronic obstructive pulmonary disease, unspecified; E11.52 Type 2 diabetes mellitus with diabetic peripheral angiopathy with gangrene; I96 Gangrene, not elsewhere classified; E11.22 Type 2 diabetes mellitus with diabetic chronic kidney disease; I13.2 Hypertensive heart and chronic kidney disease with heart failure and with stage 5 chronic kidney disease, or end stage renal disease; N18.6 End stage renal disease; I50.9 Heart failure, unspecified; E78.5 Hyperlipidemia, unspecified; F32.9 Major depressive disorder, single episode, unspecified; E66.01 Morbid (severe) obesity due to excess calories; I25.2 Old myocardial infarction; F17.210 Nicotine dependence, cigarettes, uncomplicated; G89.29 Other chronic pain; Z95.1 Presence of aortocoronary bypass graft; Z68.38 Body mass index [BMI] 38.0-38.9, adult; Z79.4 Long term (current) use of insulin; Z99.2 Dependence on renal dialysis
CPT/HCPCS: 11042; 11043; 97597; 97605

== ENCOUNTER → 2017-11-06 | Outpatient (CLI) | payer MEDICARE ==
[2017-06-26 13:00] VITALS: BP 111/52
== END | disposition home or self-care (01) ==
LOC: PMGWOUND 08:22
PROVIDERS: ATTEND Preventive Medicine Undersea and Hyperbaric Medicine
DX: E11.621 Type 2 diabetes mellitus with foot ulcer (principal); L97.524 Non-pressure chronic ulcer of other part of left foot with necrosis of bone; L97.511 Non-pressure chronic ulcer of other part of right foot limited to breakdown of skin; I13.2 Hypertensive heart and chronic kidney disease with heart failure and with stage 5 chronic kidney disease, or end stage renal disease; E11.22 Type 2 diabetes mellitus with diabetic chronic kidney disease; N18.6 End stage renal disease; I50.9 Heart failure, unspecified; I48.2 Chronic atrial fibrillation; E66.01 Morbid (severe) obesity due to excess calories; E11.52 Type 2 diabetes mellitus with diabetic peripheral angiopathy with gangrene; E78.4 Other hyperlipidemia; I25.10 Atherosclerotic heart disease of native coronary artery without angina pectoris; I25.2 Old myocardial infarction; I70.203 Unspecified atherosclerosis of native arteries of extremities, bilateral legs; J44.9 Chronic obstructive pulmonary disease, unspecified; I96 Gangrene, not elsewhere classified; L84 Corns and callosities; G89.4 Chronic pain syndrome; F41.9 Anxiety disorder, unspecified; F17.210 Nicotine dependence, cigarettes, uncomplicated; F32.9 Major depressive disorder, single episode, unspecified; Z68.38 Body mass index [BMI] 38.0-38.9, adult; Z95.1 Presence of aortocoronary bypass graft; Z79.4 Long term (current) use of insulin; Z99.2 Dependence on renal dialysis
CPT/HCPCS: 97597; 97598; 97605

== ENCOUNTER → 2017-11-13 | Outpatient (CLI) | payer MEDICARE ==
[2017-06-26 13:00] VITALS: BP 111/52
== END | disposition home or self-care (01) ==
LOC: PMGWOUND 07:59
PROVIDERS: ATTEND Preventive Medicine Undersea and Hyperbaric Medicine
DX: E11.621 Type 2 diabetes mellitus with foot ulcer (principal); L97.524 Non-pressure chronic ulcer of other part of left foot with necrosis of bone; L97.511 Non-pressure chronic ulcer of other part of right foot limited to breakdown of skin; I87.313 Chronic venous hypertension (idiopathic) with ulcer of bilateral lower extremity; I70.203 Unspecified atherosclerosis of native arteries of extremities, bilateral legs; I13.2 Hypertensive heart and chronic kidney disease with heart failure and with stage 5 chronic kidney disease, or end stage renal disease; E11.22 Type 2 diabetes mellitus with diabetic chronic kidney disease; N18.6 End stage renal disease; I50.9 Heart failure, unspecified; E11.52 Type 2 diabetes mellitus with diabetic peripheral angiopathy with gangrene; I25.10 Atherosclerotic heart disease of native coronary artery without angina pectoris; E78.4 Other hyperlipidemia; I48.2 Chronic atrial fibrillation; J44.9 Chronic obstructive pulmonary disease, unspecified; G89.4 Chronic pain syndrome; L84 Corns and callosities; I25.2 Old myocardial infarction; E66.01 Morbid (severe) obesity due to excess calories; F41.9 Anxiety disorder, unspecified; F32.9 Major depressive disorder, single episode, unspecified; Z68.38 Body mass index [BMI] 38.0-38.9, adult; Z99.2 Dependence on renal dialysis; Z95.1 Presence of aortocoronary bypass graft; Z79.4 Long term (current) use of insulin; Z87.891 Personal history of nicotine dependence
CPT/HCPCS: 11042; 97597; 97605

== ENCOUNTER → 2017-11-20 | Outpatient (CLI) | payer MEDICARE ==
[2017-06-26 13:00] VITALS: BP 111/52
[~2017-11-20] MED LIST changes: -METF10003 PO; +METF10007 PO
[2017-11-20 09:51] LABS: BASO # 0.1 x10^3/uL (0.0-0.2); BASO % 1 % (0-3); EOS # 0.4 x10^3/uL (0.0-0.7); EOS % 6 % (0-3); HEMATOCRIT 36.2 % (39.0-53.0); HEMOGLOBIN 12.1 g/dL (13.0-17.5); LYMPH # 1.3 x10^3/uL (1.0-4.8); LYMPH % 21 % (24-48); MEAN CORPUSCULAR HEMOGLOBIN 31 pg (25-35); MEAN CORPUSCULAR HGB CONC 33 g/dL (31-37); MEAN CORPUSCULAR VOLUME 93 fL (79-100); MONO # 0.6 x10^3/uL (0.0-1.1); MONO % 10 % (0-9); NEUT # 3.8 x10^3uL (1.8-7.7); NEUT % 61 % (31-73); PLATELET COUNT 197 x10^3/uL (140-400); RED BLOOD COUNT 3.88 x10^6/uL (4.30-5.70); RED CELL DISTRIBUTION WIDTH 16.2 % (11.5-14.5); WHITE BLOOD COUNT 6.2 x10^3/uL (4.0-11.0)
--- NOTE | 2017-11-20 11:43 | RAD ---
Right foot, 3 views, 11/20/2017: HISTORY: Nonhealing great toe wound There is moderate patchy bony demineralization. There are mild scattered degenerative changes. No fracture or destructive bony lesion is seen. Moderate arterial calcifications are evident. IMPRESSION: 1. Moderate patchy bony demineralization. 2. Scattered degenerative changes. 3. No acute bony abnormality is detected. Electronically signed by: Jeffry Smith MD (11/20/2017 11:40 AM) [facility]
== END | disposition home or self-care (01) ==
LOC: PMGWOUND 08:00
PROVIDERS: ATTEND Preventive Medicine Undersea and Hyperbaric Medicine
DX: E11.621 Type 2 diabetes mellitus with foot ulcer (principal); L97.424 Non-pressure chronic ulcer of left heel and midfoot with necrosis of bone; L97.521 Non-pressure chronic ulcer of other part of left foot limited to breakdown of skin; L97.511 Non-pressure chronic ulcer of other part of right foot limited to breakdown of skin; L97.211 Non-pressure chronic ulcer of right calf limited to breakdown of skin; I87.313 Chronic venous hypertension (idiopathic) with ulcer of bilateral lower extremity; E11.52 Type 2 diabetes mellitus with diabetic peripheral angiopathy with gangrene; I13.2 Hypertensive heart and chronic kidney disease with heart failure and with stage 5 chronic kidney disease, or end stage renal disease; E11.22 Type 2 diabetes mellitus with diabetic chronic kidney disease; N18.6 End stage renal disease; I50.9 Heart failure, unspecified; I70.203 Unspecified atherosclerosis of native arteries of extremities, bilateral legs; F41.9 Anxiety disorder, unspecified; F32.9 Major depressive disorder, single episode, unspecified; I25.10 Atherosclerotic heart disease of native coronary artery without angina pectoris; I48.2 Chronic atrial fibrillation; G89.4 Chronic pain syndrome; I25.2 Old myocardial infarction; E78.4 Other hyperlipidemia; L84 Corns and callosities; E66.01 Morbid (severe) obesity due to excess calories; Z68.38 Body mass index [BMI] 38.0-38.9, adult; Z95.1 Presence of aortocoronary bypass graft; Z99.2 Dependence on renal dialysis; Z79.4 Long term (current) use of insulin; Z87.891 Personal history of nicotine dependence
CPT/HCPCS: 36415; 73630; 85025; 85651; 86140; 97597; 97605

== ENCOUNTER → 2017-11-27 | Outpatient (CLI) | payer MEDICARE ==
[2017-06-26 13:00] VITALS: BP 111/52
== END | disposition home or self-care (01) ==
LOC: PMGWOUND 07:55
PROVIDERS: ATTEND Preventive Medicine Undersea and Hyperbaric Medicine
DX: E11.621 Type 2 diabetes mellitus with foot ulcer (principal); I87.313 Chronic venous hypertension (idiopathic) with ulcer of bilateral lower extremity; L97.524 Non-pressure chronic ulcer of other part of left foot with necrosis of bone; L97.511 Non-pressure chronic ulcer of other part of right foot limited to breakdown of skin; S81.811D Laceration without foreign body, right lower leg, subsequent encounter; I13.2 Hypertensive heart and chronic kidney disease with heart failure and with stage 5 chronic kidney disease, or end stage renal disease; E11.22 Type 2 diabetes mellitus with diabetic chronic kidney disease; N18.6 End stage renal disease; I50.9 Heart failure, unspecified; E11.52 Type 2 diabetes mellitus with diabetic peripheral angiopathy with gangrene; I96 Gangrene, not elsewhere classified; L84 Corns and callosities; F32.9 Major depressive disorder, single episode, unspecified; F41.9 Anxiety disorder, unspecified; I48.2 Chronic atrial fibrillation; G89.4 Chronic pain syndrome; I25.2 Old myocardial infarction; M54.9 Dorsalgia, unspecified; E78.4 Other hyperlipidemia; I25.10 Atherosclerotic heart disease of native coronary artery without angina pectoris; J44.9 Chronic obstructive pulmonary disease, unspecified; E66.01 Morbid (severe) obesity due to excess calories; Z68.38 Body mass index [BMI] 38.0-38.9, adult; Z99.2 Dependence on renal dialysis; Z79.4 Long term (current) use of insulin; Z87.891 Personal history of nicotine dependence; X58.XXXD Exposure to other specified factors, subsequent encounter
CPT/HCPCS: 97597

== ENCOUNTER → 2017-12-04 | Outpatient (CLI) | payer MEDICARE ==
[2017-06-26 13:00] VITALS: BP 111/52
== END | disposition home or self-care (01) ==
LOC: PMGWOUND 08:15
PROVIDERS: ATTEND Emergency Medicine Undersea and Hyperbaric Medicine
DX: E11.621 Type 2 diabetes mellitus with foot ulcer (principal); I87.313 Chronic venous hypertension (idiopathic) with ulcer of bilateral lower extremity; L97.524 Non-pressure chronic ulcer of other part of left foot with necrosis of bone; L97.511 Non-pressure chronic ulcer of other part of right foot limited to breakdown of skin; I70.203 Unspecified atherosclerosis of native arteries of extremities, bilateral legs; S81.811D Laceration without foreign body, right lower leg, subsequent encounter; I13.2 Hypertensive heart and chronic kidney disease with heart failure and with stage 5 chronic kidney disease, or end stage renal disease; I50.9 Heart failure, unspecified; E11.22 Type 2 diabetes mellitus with diabetic chronic kidney disease; N18.6 End stage renal disease; F41.9 Anxiety disorder, unspecified; E11.52 Type 2 diabetes mellitus with diabetic peripheral angiopathy with gangrene; I96 Gangrene, not elsewhere classified; L84 Corns and callosities; F32.9 Major depressive disorder, single episode, unspecified; I25.10 Atherosclerotic heart disease of native coronary artery without angina pectoris; I48.2 Chronic atrial fibrillation; J44.9 Chronic obstructive pulmonary disease, unspecified; G89.29 Other chronic pain; M54.9 Dorsalgia, unspecified; E78.4 Other hyperlipidemia; I25.2 Old myocardial infarction; E66.01 Morbid (severe) obesity due to excess calories; Z68.38 Body mass index [BMI] 38.0-38.9, adult; Z99.2 Dependence on renal dialysis; Z79.4 Long term (current) use of insulin; Z87.891 Personal history of nicotine dependence; X58.XXXD Exposure to other specified factors, subsequent encounter
CPT/HCPCS: 97597; 97598

== ENCOUNTER → 2017-12-11 | Outpatient (CLI) | payer MEDICARE ==
[2017-06-26 13:00] VITALS: BP 111/52
== END | disposition home or self-care (01) ==
LOC: PMGWOUND 08:18
PROVIDERS: ATTEND Preventive Medicine Undersea and Hyperbaric Medicine
DX: E11.621 Type 2 diabetes mellitus with foot ulcer (principal); I87.313 Chronic venous hypertension (idiopathic) with ulcer of bilateral lower extremity; I70.203 Unspecified atherosclerosis of native arteries of extremities, bilateral legs; L97.524 Non-pressure chronic ulcer of other part of left foot with necrosis of bone; L97.511 Non-pressure chronic ulcer of other part of right foot limited to breakdown of skin; I13.2 Hypertensive heart and chronic kidney disease with heart failure and with stage 5 chronic kidney disease, or end stage renal disease; E11.22 Type 2 diabetes mellitus with diabetic chronic kidney disease; N18.6 End stage renal disease; I50.9 Heart failure, unspecified; E11.52 Type 2 diabetes mellitus with diabetic peripheral angiopathy with gangrene; I96 Gangrene, not elsewhere classified; L84 Corns and callosities; F41.9 Anxiety disorder, unspecified; F32.9 Major depressive disorder, single episode, unspecified; I25.2 Old myocardial infarction; G89.29 Other chronic pain; M54.9 Dorsalgia, unspecified; E78.4 Other hyperlipidemia; I48.2 Chronic atrial fibrillation; J44.9 Chronic obstructive pulmonary disease, unspecified; I25.10 Atherosclerotic heart disease of native coronary artery without angina pectoris; E66.01 Morbid (severe) obesity due to excess calories; Z68.38 Body mass index [BMI] 38.0-38.9, adult; Z99.2 Dependence on renal dialysis; Z79.4 Long term (current) use of insulin; Z87.891 Personal history of nicotine dependence
CPT/HCPCS: 11042

== ENCOUNTER → 2017-12-17 | Outpatient (CLI) | payer MEDICARE ==
[2017-06-26 13:00] VITALS: BP 111/52
== END | disposition home or self-care (01) ==
LOC: PMGWOUND 10:33
PROVIDERS: ATTEND Emergency Medicine Undersea and Hyperbaric Medicine
DX: E11.621 Type 2 diabetes mellitus with foot ulcer (principal); I87.313 Chronic venous hypertension (idiopathic) with ulcer of bilateral lower extremity; L97.524 Non-pressure chronic ulcer of other part of left foot with necrosis of bone; L97.512 Non-pressure chronic ulcer of other part of right foot with fat layer exposed; I70.203 Unspecified atherosclerosis of native arteries of extremities, bilateral legs; I13.2 Hypertensive heart and chronic kidney disease with heart failure and with stage 5 chronic kidney disease, or end stage renal disease; E11.22 Type 2 diabetes mellitus with diabetic chronic kidney disease; N18.6 End stage renal disease; I50.89 Other heart failure; E11.52 Type 2 diabetes mellitus with diabetic peripheral angiopathy with gangrene; I96 Gangrene, not elsewhere classified; L84 Corns and callosities; F41.9 Anxiety disorder, unspecified; F32.9 Major depressive disorder, single episode, unspecified; I48.2 Chronic atrial fibrillation; G89.29 Other chronic pain; M54.9 Dorsalgia, unspecified; J44.9 Chronic obstructive pulmonary disease, unspecified; I25.2 Old myocardial infarction; I25.10 Atherosclerotic heart disease of native coronary artery without angina pectoris; E78.5 Hyperlipidemia, unspecified; E66.01 Morbid (severe) obesity due to excess calories; Z68.38 Body mass index [BMI] 38.0-38.9, adult; Z99.2 Dependence on renal dialysis; Z79.4 Long term (current) use of insulin; Z87.891 Personal history of nicotine dependence
CPT/HCPCS: 11750

== ENCOUNTER → 2017-12-25 | Outpatient (CLI) | payer MEDICARE ==
[2017-06-26 13:00] VITALS: BP 111/52
[~2017-12-25] MED LIST changes: +ALBU2SYR2 PO; +METO5TAB4 PO; +SILV20CR14 TP
== END | disposition home or self-care (01) ==
LOC: PMGWOUND 08:22
PROVIDERS: ATTEND Emergency Medicine Undersea and Hyperbaric Medicine
DX: E11.621 Type 2 diabetes mellitus with foot ulcer (principal); I87.313 Chronic venous hypertension (idiopathic) with ulcer of bilateral lower extremity; I70.203 Unspecified atherosclerosis of native arteries of extremities, bilateral legs; L97.524 Non-pressure chronic ulcer of other part of left foot with necrosis of bone; L97.512 Non-pressure chronic ulcer of other part of right foot with fat layer exposed; E11.622 Type 2 diabetes mellitus with other skin ulcer; L97.811 Non-pressure chronic ulcer of other part of right lower leg limited to breakdown of skin; E11.52 Type 2 diabetes mellitus with diabetic peripheral angiopathy with gangrene; I96 Gangrene, not elsewhere classified; I13.2 Hypertensive heart and chronic kidney disease with heart failure and with stage 5 chronic kidney disease, or end stage renal disease; E11.22 Type 2 diabetes mellitus with diabetic chronic kidney disease; N18.6 End stage renal disease; I50.89 Other heart failure; L84 Corns and callosities; F32.9 Major depressive disorder, single episode, unspecified; F41.9 Anxiety disorder, unspecified; G89.29 Other chronic pain; M54.9 Dorsalgia, unspecified; I48.2 Chronic atrial fibrillation; J44.9 Chronic obstructive pulmonary disease, unspecified; I25.2 Old myocardial infarction; E78.49 Other hyperlipidemia; I25.10 Atherosclerotic heart disease of native coronary artery without angina pectoris; E66.01 Morbid (severe) obesity due to excess calories; Z68.38 Body mass index [BMI] 38.0-38.9, adult; Z99.2 Dependence on renal dialysis; Z79.4 Long term (current) use of insulin; Z87.891 Personal history of nicotine dependence
CPT/HCPCS: 11042; 11045

== ENCOUNTER → 2018-01-22 | Outpatient (CLI) | payer MEDICARE ==
[2018-01-09 11:00] VITALS: BP 112/49
[~2018-01-22] MED LIST changes: +CEPH-264 PO; +CLOP75TA57 PO; +CRESTOR20 MG PO; +LISI-130 PO; +SERT100T8 PO; +SODI650T PO
== END | disposition home or self-care (01) ==
LOC: PMGWOUND 08:22
PROVIDERS: ATTEND Preventive Medicine Undersea and Hyperbaric Medicine
DX: E11.621 Type 2 diabetes mellitus with foot ulcer (principal); I87.313 Chronic venous hypertension (idiopathic) with ulcer of bilateral lower extremity; L97.524 Non-pressure chronic ulcer of other part of left foot with necrosis of bone; L97.512 Non-pressure chronic ulcer of other part of right foot with fat layer exposed; L97.411 Non-pressure chronic ulcer of right heel and midfoot limited to breakdown of skin; I70.203 Unspecified atherosclerosis of native arteries of extremities, bilateral legs; E11.52 Type 2 diabetes mellitus with diabetic peripheral angiopathy with gangrene; I96 Gangrene, not elsewhere classified; E11.42 Type 2 diabetes mellitus with diabetic polyneuropathy; I13.2 Hypertensive heart and chronic kidney disease with heart failure and with stage 5 chronic kidney disease, or end stage renal disease; E11.22 Type 2 diabetes mellitus with diabetic chronic kidney disease; N18.6 End stage renal disease; I50.89 Other heart failure; L84 Corns and callosities; F32.9 Major depressive disorder, single episode, unspecified; I48.2 Chronic atrial fibrillation; F41.9 Anxiety disorder, unspecified; E78.49 Other hyperlipidemia; G89.29 Other chronic pain; M54.9 Dorsalgia, unspecified; E78.5 Hyperlipidemia, unspecified; M19.90 Unspecified osteoarthritis, unspecified site; I42.9 Cardiomyopathy, unspecified; I25.2 Old myocardial infarction; I25.10 Atherosclerotic heart disease of native coronary artery without angina pectoris; E66.01 Morbid (severe) obesity due to excess calories; Z68.38 Body mass index [BMI] 38.0-38.9, adult; Z99.2 Dependence on renal dialysis; Z87.891 Personal history of nicotine dependence; Z86.19 Personal history of other infectious and parasitic diseases; Z79.4 Long term (current) use of insulin
CPT/HCPCS: 97597; 97598

== ENCOUNTER → 2018-02-19 | Outpatient (CLI) | payer MEDICARE ==
[2018-01-09 11:00] VITALS: BP 112/49
[~2018-02-19] MED LIST changes: -HYDR-2758 PO; +HYDR-2761 PO; -OXYC10TA45 PO; +OXYC10TA46 PO
== END | disposition home or self-care (01) ==
LOC: PMGWOUND 08:25
PROVIDERS: ATTEND Preventive Medicine Undersea and Hyperbaric Medicine
DX: E11.621 Type 2 diabetes mellitus with foot ulcer (principal); I87.313 Chronic venous hypertension (idiopathic) with ulcer of bilateral lower extremity; L97.524 Non-pressure chronic ulcer of other part of left foot with necrosis of bone; L97.512 Non-pressure chronic ulcer of other part of right foot with fat layer exposed; L97.411 Non-pressure chronic ulcer of right heel and midfoot limited to breakdown of skin; E11.622 Type 2 diabetes mellitus with other skin ulcer; L98.491 Non-pressure chronic ulcer of skin of other sites limited to breakdown of skin; L89.313 Pressure ulcer of right buttock, stage 3; I70.203 Unspecified atherosclerosis of native arteries of extremities, bilateral legs; E11.42 Type 2 diabetes mellitus with diabetic polyneuropathy; E11.52 Type 2 diabetes mellitus with diabetic peripheral angiopathy with gangrene; I96 Gangrene, not elsewhere classified; I13.11 Hypertensive heart and chronic kidney disease without heart failure, with stage 5 chronic kidney disease, or end stage renal disease; E11.22 Type 2 diabetes mellitus with diabetic chronic kidney disease; N18.6 End stage renal disease; L84 Corns and callosities; F41.9 Anxiety disorder, unspecified; F32.9 Major depressive disorder, single episode, unspecified; I48.0 Paroxysmal atrial fibrillation; G89.29 Other chronic pain; M54.9 Dorsalgia, unspecified; I42.9 Cardiomyopathy, unspecified; I25.2 Old myocardial infarction; E78.49 Other hyperlipidemia; M19.90 Unspecified osteoarthritis, unspecified site; I25.10 Atherosclerotic heart disease of native coronary artery without angina pectoris; Z68.38 Body mass index [BMI] 38.0-38.9, adult; Z87.891 Personal history of nicotine dependence; Z99.2 Dependence on renal dialysis; Z79.4 Long term (current) use of insulin
CPT/HCPCS: 97597; 97598

== ENCOUNTER → 2018-02-27 | Outpatient (CLI) | payer MEDICARE ==
[2018-01-09 11:00] VITALS: BP 112/49
== END | disposition home or self-care (01) ==
LOC: PMGWOUND 10:35
PROVIDERS: ATTEND Emergency Medicine Undersea and Hyperbaric Medicine
DX: E11.621 Type 2 diabetes mellitus with foot ulcer (principal); I87.313 Chronic venous hypertension (idiopathic) with ulcer of bilateral lower extremity; L97.524 Non-pressure chronic ulcer of other part of left foot with necrosis of bone; L97.512 Non-pressure chronic ulcer of other part of right foot with fat layer exposed; L97.411 Non-pressure chronic ulcer of right heel and midfoot limited to breakdown of skin; E11.622 Type 2 diabetes mellitus with other skin ulcer; L98.491 Non-pressure chronic ulcer of skin of other sites limited to breakdown of skin; L89.313 Pressure ulcer of right buttock, stage 3; I70.203 Unspecified atherosclerosis of native arteries of extremities, bilateral legs; E11.42 Type 2 diabetes mellitus with diabetic polyneuropathy; E11.52 Type 2 diabetes mellitus with diabetic peripheral angiopathy with gangrene; I96 Gangrene, not elsewhere classified; E11.22 Type 2 diabetes mellitus with diabetic chronic kidney disease; I13.2 Hypertensive heart and chronic kidney disease with heart failure and with stage 5 chronic kidney disease, or end stage renal disease; N18.6 End stage renal disease; I50.89 Other heart failure; L84 Corns and callosities; F41.9 Anxiety disorder, unspecified; F32.9 Major depressive disorder, single episode, unspecified; I48.0 Paroxysmal atrial fibrillation; G89.29 Other chronic pain; I25.2 Old myocardial infarction; E78.49 Other hyperlipidemia; I25.10 Atherosclerotic heart disease of native coronary artery without angina pectoris; M19.90 Unspecified osteoarthritis, unspecified site; I48.2 Chronic atrial fibrillation; Z68.38 Body mass index [BMI] 38.0-38.9, adult; Z87.891 Personal history of nicotine dependence; Z99.2 Dependence on renal dialysis; Z79.4 Long term (current) use of insulin; Z95.1 Presence of aortocoronary bypass graft; Z88.1 Allergy status to other antibiotic agents; Z88.8 Allergy status to other drugs, medicaments and biological substances
CPT/HCPCS: 99215

== ENCOUNTER → 2018-03-12 | Outpatient (CLI) | payer MEDICARE ==
[2018-03-08 11:00] VITALS: BP 103/43
[~2018-03-12] MED LIST changes: +HYDR-3164 PO; +INSU100V13 SQ
== END | disposition home or self-care (01) ==
LOC: PMGWOUND 08:16
PROVIDERS: ATTEND Preventive Medicine Undersea and Hyperbaric Medicine
DX: E11.621 Type 2 diabetes mellitus with foot ulcer (principal); I87.313 Chronic venous hypertension (idiopathic) with ulcer of bilateral lower extremity; L97.524 Non-pressure chronic ulcer of other part of left foot with necrosis of bone; L97.512 Non-pressure chronic ulcer of other part of right foot with fat layer exposed; L97.412 Non-pressure chronic ulcer of right heel and midfoot with fat layer exposed; I70.203 Unspecified atherosclerosis of native arteries of extremities, bilateral legs; I13.2 Hypertensive heart and chronic kidney disease with heart failure and with stage 5 chronic kidney disease, or end stage renal disease; E11.22 Type 2 diabetes mellitus with diabetic chronic kidney disease; N18.6 End stage renal disease; I50.89 Other heart failure; L84 Corns and callosities; E11.52 Type 2 diabetes mellitus with diabetic peripheral angiopathy with gangrene; I96 Gangrene, not elsewhere classified; E11.42 Type 2 diabetes mellitus with diabetic polyneuropathy; G89.29 Other chronic pain; M54.9 Dorsalgia, unspecified; I48.2 Chronic atrial fibrillation; E78.5 Hyperlipidemia, unspecified; F41.9 Anxiety disorder, unspecified; I25.2 Old myocardial infarction; E78.49 Other hyperlipidemia; I48.0 Paroxysmal atrial fibrillation; M19.90 Unspecified osteoarthritis, unspecified site; F32.9 Major depressive disorder, single episode, unspecified; I25.10 Atherosclerotic heart disease of native coronary artery without angina pectoris; E66.01 Morbid (severe) obesity due to excess calories; Z68.38 Body mass index [BMI] 38.0-38.9, adult; Z99.2 Dependence on renal dialysis; Z79.4 Long term (current) use of insulin; Z86.19 Personal history of other infectious and parasitic diseases; Z90.49 Acquired absence of other specified parts of digestive tract
CPT/HCPCS: 11042; 11045; 82962

== ENCOUNTER → 2018-04-02 | Outpatient (CLI) | payer MEDICARE ==
[2018-03-26 07:00] VITALS: BP 132/80
[~2018-04-02] MED LIST changes: +VANC1VIA3 MC
== END | disposition home or self-care (01) ==
LOC: PMGWOUND 08:17
PROVIDERS: ATTEND Preventive Medicine Undersea and Hyperbaric Medicine
DX: E11.621 Type 2 diabetes mellitus with foot ulcer (principal); I87.313 Chronic venous hypertension (idiopathic) with ulcer of bilateral lower extremity; L97.524 Non-pressure chronic ulcer of other part of left foot with necrosis of bone; L97.512 Non-pressure chronic ulcer of other part of right foot with fat layer exposed; L97.411 Non-pressure chronic ulcer of right heel and midfoot limited to breakdown of skin; E11.622 Type 2 diabetes mellitus with other skin ulcer; L97.221 Non-pressure chronic ulcer of left calf limited to breakdown of skin; I70.203 Unspecified atherosclerosis of native arteries of extremities, bilateral legs; E11.52 Type 2 diabetes mellitus with diabetic peripheral angiopathy with gangrene; I96 Gangrene, not elsewhere classified; E11.69 Type 2 diabetes mellitus with other specified complication; M86.8X7 Other osteomyelitis, ankle and foot; E11.42 Type 2 diabetes mellitus with diabetic polyneuropathy; E11.649 Type 2 diabetes mellitus with hypoglycemia without coma; E11.51 Type 2 diabetes mellitus with diabetic peripheral angiopathy without gangrene; I13.2 Hypertensive heart and chronic kidney disease with heart failure and with stage 5 chronic kidney disease, or end stage renal disease; E11.22 Type 2 diabetes mellitus with diabetic chronic kidney disease; N18.6 End stage renal disease; I50.89 Other heart failure; L84 Corns and callosities; I48.2 Chronic atrial fibrillation; G89.29 Other chronic pain; M54.9 Dorsalgia, unspecified; F41.9 Anxiety disorder, unspecified; J44.9 Chronic obstructive pulmonary disease, unspecified; K21.9 Gastro-esophageal reflux disease without esophagitis; M19.90 Unspecified osteoarthritis, unspecified site; F32.9 Major depressive disorder, single episode, unspecified; I25.10 Atherosclerotic heart disease of native coronary artery without angina pectoris; I25.2 Old myocardial infarction; E78.49 Other hyperlipidemia; I48.0 Paroxysmal atrial fibrillation; I42.9 Cardiomyopathy, unspecified; Z99.2 Dependence on renal dialysis; Z79.4 Long term (current) use of insulin; E66.01 Morbid (severe) obesity due to excess calories; Z68.38 Body mass index [BMI] 38.0-38.9, adult; Z90.49 Acquired absence of other specified parts of digestive tract
CPT/HCPCS: 97597

== ENCOUNTER → 2018-04-09 | Outpatient (CLI) | payer MEDICARE ==
[2018-03-26 07:00] VITALS: BP 132/80
== END | disposition home or self-care (01) ==
LOC: PMGWOUND 08:16
PROVIDERS: ATTEND Preventive Medicine Undersea and Hyperbaric Medicine
DX: E11.621 Type 2 diabetes mellitus with foot ulcer (principal); I87.313 Chronic venous hypertension (idiopathic) with ulcer of bilateral lower extremity; L97.524 Non-pressure chronic ulcer of other part of left foot with necrosis of bone; L97.512 Non-pressure chronic ulcer of other part of right foot with fat layer exposed; L97.411 Non-pressure chronic ulcer of right heel and midfoot limited to breakdown of skin; I70.203 Unspecified atherosclerosis of native arteries of extremities, bilateral legs; E11.69 Type 2 diabetes mellitus with other specified complication; M86.8X7 Other osteomyelitis, ankle and foot; E11.52 Type 2 diabetes mellitus with diabetic peripheral angiopathy with gangrene; I96 Gangrene, not elsewhere classified; E11.42 Type 2 diabetes mellitus with diabetic polyneuropathy; E11.649 Type 2 diabetes mellitus with hypoglycemia without coma; I13.2 Hypertensive heart and chronic kidney disease with heart failure and with stage 5 chronic kidney disease, or end stage renal disease; E11.22 Type 2 diabetes mellitus with diabetic chronic kidney disease; N18.6 End stage renal disease; I50.89 Other heart failure; L84 Corns and callosities; I48.2 Chronic atrial fibrillation; M54.9 Dorsalgia, unspecified; G89.29 Other chronic pain; F41.9 Anxiety disorder, unspecified; I42.9 Cardiomyopathy, unspecified; I25.2 Old myocardial infarction; E78.49 Other hyperlipidemia; I48.0 Paroxysmal atrial fibrillation; M19.90 Unspecified osteoarthritis, unspecified site; J44.9 Chronic obstructive pulmonary disease, unspecified; K21.9 Gastro-esophageal reflux disease without esophagitis; I25.10 Atherosclerotic heart disease of native coronary artery without angina pectoris; F32.9 Major depressive disorder, single episode, unspecified; E66.01 Morbid (severe) obesity due to excess calories; Z68.38 Body mass index [BMI] 38.0-38.9, adult; Z79.4 Long term (current) use of insulin; Z90.49 Acquired absence of other specified parts of digestive tract
CPT/HCPCS: 11042; 11045; 97597

== ENCOUNTER → 2018-04-22 | Outpatient (CLI) | payer MEDICARE ==
[2018-03-26 07:00] VITALS: BP 132/80
== END | disposition home or self-care (01) ==
LOC: PMGWOUND 11:50
PROVIDERS: ATTEND Nurse Practitioner Family
DX: E11.621 Type 2 diabetes mellitus with foot ulcer (principal); I87.313 Chronic venous hypertension (idiopathic) with ulcer of bilateral lower extremity; L97.524 Non-pressure chronic ulcer of other part of left foot with necrosis of bone; L97.415 Non-pressure chronic ulcer of right heel and midfoot with muscle involvement without evidence of necrosis; L97.221 Non-pressure chronic ulcer of left calf limited to breakdown of skin; L97.512 Non-pressure chronic ulcer of other part of right foot with fat layer exposed; I70.203 Unspecified atherosclerosis of native arteries of extremities, bilateral legs; E11.69 Type 2 diabetes mellitus with other specified complication; M86.8X7 Other osteomyelitis, ankle and foot; E11.42 Type 2 diabetes mellitus with diabetic polyneuropathy; E11.649 Type 2 diabetes mellitus with hypoglycemia without coma; E11.52 Type 2 diabetes mellitus with diabetic peripheral angiopathy with gangrene; I96 Gangrene, not elsewhere classified; I13.2 Hypertensive heart and chronic kidney disease with heart failure and with stage 5 chronic kidney disease, or end stage renal disease; E11.22 Type 2 diabetes mellitus with diabetic chronic kidney disease; N18.6 End stage renal disease; I50.89 Other heart failure; L84 Corns and callosities; I48.2 Chronic atrial fibrillation; G89.29 Other chronic pain; M54.9 Dorsalgia, unspecified; I42.9 Cardiomyopathy, unspecified; I25.2 Old myocardial infarction; I48.0 Paroxysmal atrial fibrillation; E78.49 Other hyperlipidemia; J44.9 Chronic obstructive pulmonary disease, unspecified; K21.9 Gastro-esophageal reflux disease without esophagitis; F32.9 Major depressive disorder, single episode, unspecified; F41.9 Anxiety disorder, unspecified; I25.10 Atherosclerotic heart disease of native coronary artery without angina pectoris; M19.90 Unspecified osteoarthritis, unspecified site; E66.01 Morbid (severe) obesity due to excess calories; Z68.38 Body mass index [BMI] 38.0-38.9, adult; Z99.2 Dependence on renal dialysis; Z79.4 Long term (current) use of insulin; Z90.49 Acquired absence of other specified parts of digestive tract
CPT/HCPCS: 11042; 97597; 97598

== ENCOUNTER → 2018-04-29 | Outpatient (CLI) | payer MEDICARE ==
[2018-03-26 07:00] VITALS: BP 132/80
--- NOTE | 2018-04-29 12:42 | RAD ---
Indication:RIGHT GREAT TOE NON HEALING WOUND, DIABETIC WITH NEUROPATHY TECHNIQUE: 3 views of the right foot COMPARISON:None FINDINGS: No acute fracture or dislocation. Diffuse osteopenia. No cortical erosion or periosteal reaction to suggest radiographic signs of osteomyelitis. Vascular calcifications suggesting peripheral arterial disease. Soft tissue swelling of the distal foot. IMPRESSION: No radiographic evidence of osteomyelitis. Triple phase bone scan recommended if concern for osteomyelitis is high. Electronically signed by: Alexander Paula DO (04/29/2018 12:37 PM) [id number]
== END | disposition home or self-care (01) ==
LOC: RAD 10:12
PROVIDERS: ATTEND Nurse Practitioner Family
DX: S91.101D Unspecified open wound of right great toe without damage to nail, subsequent encounter (principal); R22.41 Localized swelling, mass and lump, right lower limb; X58.XXXD Exposure to other specified factors, subsequent encounter
CPT/HCPCS: 73630

== ENCOUNTER 2018-05-09 12:52 | Inpatient (IN) | payer MEDICARE ==
[~2018-05-09] VITALS: Ht 182.9 cm; Wt 100.7 kg
[~2018-05-09 12:52] MED LIST changes: -ASPI-618 PO; +ASPI-861 PO; -BUME2TAB PO; +BUME2TAB3 PO; +TRAZ-118 PO; -TRAZ-85 PO
[2018-05-09 14:07] LABS: BASO # 0.1 x10^3/uL (0.0-0.2); BASO % 1 % (0-3); EOS # 0.5 x10^3/uL (0.0-0.7); EOS % 5 % (0-3); HEMATOCRIT 37.6 % (39.0-53.0); HEMOGLOBIN 12.5 g/dL (13.0-17.5); LYMPH # 1.8 x10^3/uL (1.0-4.8); LYMPH % 20 % (24-48); MEAN CORPUSCULAR HEMOGLOBIN 32 pg (25-35); MEAN CORPUSCULAR HGB CONC 33 g/dL (31-37); MEAN CORPUSCULAR VOLUME 96 fL (79-100); MONO % 11 % (0-9); NEUT # 5.9 x10^3uL (1.8-7.7); NEUT % 63 % (31-73); PLATELET COUNT 210 x10^3/uL (140-400); RED BLOOD COUNT 3.93 x10^6/uL (4.30-5.70); RED CELL DISTRIBUTION WIDTH 13.2 % (11.5-14.5); WHITE BLOOD COUNT 9.3 x10^3/uL (4.0-11.0)
[2018-05-09] MEDS ORDERED: PIPERACILLIN/TAZOBACTAM 2.25 GM in IV NORMAL SALINE 50ML 50 ML IV ONE (14:15)
[2018-05-09] MEDS ORDERED: PIP/TAZO PER PHARMACY MC PRN (14:15)
[2018-05-09 14:27] LABS: CALCIUM 9.2 mg/dL (8.5-10.1); GFR 14.7; POTASSIUM 5.1 mmol/L (3.5-5.1)
[2018-05-09 14:33] LABS: ALBUMIN 2.8 g/dL (3.4-5.0); DIRECT BILIRUBIN 0.2 mg/dL (0.0-0.2); TOTAL BILIRUBIN 0.5 mg/dL (0.2-1.0); TOTAL PROTEIN 7.4 g/dL (6.4-8.2)
[2018-05-09] MEDS ORDERED: VANCOMYCIN 2 GM in IV NORMAL SALINE 500ML BAG 500 ML IV ONE (15:00)
--- NOTE | 2018-05-09 15:08 | PDOC1 ---
History and Physical Date of Admission Date of Admission DATE: 05/09/18 TIME: 15:06 Identification/Chief Complaint Chief Complaint sent by DR SALINAS, he follows with [facility] wound care 3 times a week, for diabetes right heel along with recent I&D of the left DM wound on the left foot. There is more redness, PT MISSED DIALYSIS THIS WEEK X 3 , NO hx osteo in past per pt. No significant allergies to IV antibiotics. He is also dialysis Saturday Past Medical History Past Medical History Past Medical History Past Medical History: Anxiety, CHF, COPD, Diabetes-Type II, Heart Disease, Hypertension, Renal Disease Past Surgical History: Coronary Bypass Surgery, Pacemaker, Tonsillectomy Additional Past Surgical Histo: R chest dialysis access Alcohol Use: Rarely Drug Use: None family hx HTN Past Medical History Cardiovascular: CAD, CHF, HTN, MS, Hyperlipidemia Pulmonary: Bronchitis CENTRAL NERVOUS SYSTEM: Periperal neuropathy GI: No pertinent hx, Constipation, GERD Hepatobiliary: Cholelithiasis Musculoskeletal: Osteoarthritis Renal/: Chronic renal insuff Endocrine: Diabetes Past Surgical History Past Surgical History: Pacemaker, Arthroscopy, CABG Family History Family History: Hypertension Social History Smoke: No ALCOHOL: none Drugs: None Cardiovascular: CAD, CHF, HTN, MS, Hyperlipidemia Pulmonary: Bronchitis CENTRAL NERVOUS SYSTEM: Periperal neuropathy GI: No pertinent hx, Constipation, GERD Hepatobiliary: Cholelithiasis Musculoskeletal: Osteoarthritis Renal/: Chronic renal insuff Endocrine: Diabetes, Hyperparathyroidism Past Surgical History Past Surgical History: Pacemaker, Arthroscopy, CABG Family History Family History: Hypertension Social History Smoke: No ALCOHOL: none Drugs: None Current Medications Current Medications Current Medications Vancomycin HCl (Vanco Per Pharmacy) 1 each PRN DAILY PRN MC SEE COMMENTS; Start 05/09/18 at 14:15; Status UNV Piperacillin Sod/ Tazobactam Sod (Zosyn Per Pharmacy) 1 each PRN DAILY PRN MC SEE COMMENTS; Start 05/09/18 at 14:15; Status UNV Piperacillin Sod/ Tazobactam Sod 2.25 gm/Sodium Chloride 50 ml @ 100 mls/hr 1X ONCE IV Last administered on 05/09/18at 14:52; Start 05/09/18 at 14:15; Stop 05/09/18 at 14:44; Status DC Vancomycin HCl 2 gm/Sodium Chloride 500 ml @ 250 mls/hr 1X ONCE IV ; Start at 15:00; Stop 05/09/18 at 16:59 Active Scripts Active Lantus Solostar (Insulin Glargine,Hum.rec.anlog) 100 Unit/1 Ml Insuln.pen 20 Units SQ QHS 30 Days Vancomycin Hcl 1 Gm Vial 1 Each MC MWF WITH DIALYSIS PRN 14 Days [place] 5-325 Tablet (Acetaminophen/Hydrocodone Bitart) 1 Each Tablet 1-2 Tab PO Q4-6HRS 6 Days Aspirin Ec (Aspirin) 81 Mg Tablet.dr 81 Mg PO DAILYWBKFT 30 Days Flomax (Tamsulosin Hcl) 0.4 Mg Cap.er.24h 0.4 Mg PO DAILY Reported Trazodone Hcl 50 Mg Tablet 0.5 Tab PO PRN 1X Trazodone Hcl 50 Mg Tablet 3 Tab PO QHS Lisinopril 20 Mg Tablet 1 Tab PO DAILY Crestor (Rosuvastatin Calcium) 20 Mg Tablet 0.5 Tab PO DAILY Plavix (Clopidogrel Bisulfate) 75 Mg Tablet 75 Mg PO DAILY Sodium Bicarbonate 650 Mg Tablet 650 Mg PO BID Sertraline Hcl 100 Mg Tablet 100 Mg PO DAILY Novolog (Insulin Aspart) 100 Unit/1 Ml Cartridge 10 Unit SQ TIDAC Metoprolol Tartrate 25 Mg Tablet 1 Tab PO BID Metolazone 5 Mg Tablet 5 Mg PO DAILY Vitamin D3 (Cholecalciferol (Vitamin D3)) 1,000 Unit Tablet 1 Tab PO DAILY Bumetanide 2 Mg Tablet 1 Tab PO DAILY Allergies Allergies: Coded Allergies: atorvastatin (Verified Allergy, Intermediate, 03/07/18) bacitracin (Verified Allergy, Intermediate, 05/31/17) neomycin (Verified Allergy, Intermediate, 05/31/17) polymyxin B (Verified Allergy, Intermediate, 05/31/17) rosiglitazone (Verified Allergy, Intermediate, 03/07/18) I S O L A T I O N *CONTACT* (Verified Allergy, Unknown, 12/30/17) +MRSA nares 06/21/17 ROS Review of System Review of Systems Review of Systems Constitutional: Denies fever or chills. [] Eyes: Denies change in visual acuity. [] HENT: Denies nasal congestion or sore throat. [] Respiratory: Denies cough or shortness of breath. [] Cardiovascular: Denies chest pain, reports edema. [] GI: Denies abdominal pain, nausea, vomiting, or diarrhea. [] : Denies dysuria. [] Musculoskeletal: Denies back pain or joint pain, reports peripheral edema. [] Integument: WORSENING RIGHT HEEL ulcer with bone exposure, right toe ulcer deeper [] Neurologic: Denies headache, focal weakness or sensory changes. [] Endocrine: Denies polyuria or polydipsia. [] Psychiatric: Denies depression or anxiety. [] General: YES: Fatigue Respiratory: No: Cough, Hemoptysis, Orthopnea, Pleuritic Pain, Shortness of breath, SOB with excertion, Sputum Changes, Stridor, Tachypnea, Wheezing, Other Musculoskeletal: Yes Gait Disturbance, Yes Joint Pain, Yes Joint Stiffness Neurological: Yes Gait Disturbance Skin: Yes Skin Lesion Changes Physical Exam Physical Exam CONSTITUTIONAL: Well developed, well nourished HEAD: normocephalic, atraumatic EENT: PERRL, EOMI. Conjunctivae normal color, sclerae non-icteric; moist mucous membranes. NECK: Supple, non-tender; no meningismus. LUNGS: CTA, breathing even and unlabored. Normal air movement. HEART: Regular rate and rhythm, no murmur CHEST: No deformity; non-tender ABDOMEN: The abdomen is soft, and non-tender, no masses or bruits. EXTREM: On the posterior aspect of the right heel, there is a large area of eschar, tenderness to palpation, but with significant warmth and erythema. There is some excoriation of the soft tissue margins around the eschar. The area of the eschar is tender to palpation. SKIN: no diaphoresis NEURO: Alert; normal speech and cognition; CN's grossly intact; strength grossly intact without focal deficit. BACK: No CVA TTP. General: Alert, Oriented X3, Cooperative, mild distress HEENT: Atraumatic, EOMI, Mucous membr. moist/pink Lungs: Normal air movement Rectal Exam: not examined Neuro: Normal speech, Cranial nerves 3-12 NL Psych/Mental Status: Mood NL Vitals Vitals Vital Signs Date Time Temp Pulse Resp B/P (MAP) Pulse Ox O2 Delivery O2 Flow Rate FiO2 05/09/18 13:38 98.8 60 18 109/53 (71) 97 Room Air 98.8 Labs Labs Laboratory Tests Test 05/09/18 13:57 White Blood Count 9.3 x10^3/uL (4.0-11.0) Red Blood Count 3.93 x10^6/uL (4.30-5.70) Hemoglobin 12.5 g/dL (13.0-17.5) Hematocrit 37.6 % (39.0-53.0) Mean Corpuscular Volume 96 fL (79-100) Mean Corpuscular Hemoglobin 32 pg (25-35) Mean Corpuscular Hemoglobin Concent 33 g/dL (31-37) Red Cell Distribution Width 13.2 % (11.5-14.5) Platelet Count 210 x10^3/uL (140-400) Neutrophils (%) (Auto) 63 % (31-73) Lymphocytes (%) (Auto) 20 % (24-48) Monocytes (%) (Auto) 11 % (0-9) Eosinophils (%) (Auto) 5 % (0-3) Basophils (%) (Auto) 1 % (0-3) Neutrophils # (Auto) 5.9 x10^3uL (1.8-7.7) Lymphocytes # (Auto) 1.8 x10^3/uL (1.0-4.8) Monocytes # (Auto) 1.0 x10^3/uL (0.0-1.1) Eosinophils # (Auto) 0.5 x10^3/uL (0.0-0.7) Basophils # (Auto) 0.1 x10^3/uL (0.0-0.2) Sodium Level 130 mmol/L (136-145) Potassium Level 5.1 mmol/L (3.5-5.1) Chloride Level 94 mmol/L (98-107) Carbon Dioxide Level 26 mmol/L (21-32) Anion Gap 10 (6-14) Blood Urea Nitrogen 73 mg/dL (8-26) Creatinine 4.0 mg/dL (0.7-1.3) Estimated GFR (Cockcroft-Gault) 14.7 Glucose Level 282 mg/dL (70-99) Lactic Acid Level 1.5 mmol/L (0.4-2.0) Calcium Level 9.2 mg/dL (8.5-10.1) Total Bilirubin 0.5 mg/dL (0.2-1.0) Direct Bilirubin 0.2 mg/dL (0.0-0.2) Aspartate Amino Transf (AST/SGOT) 12 U/L (15-37) Alanine Aminotransferase (ALT/SGPT) 11 U/L (16-63) Alkaline Phosphatase 87 U/L (46-116) Troponin I Quantitative 0.032 ng/mL (0.000-0.055) NK-Mhw-R-Type Natriuretic Peptide 9818 pg/mL (0-449) Total Protein 7.4 g/dL (6.4-8.2) Albumin 2.8 g/dL (3.4-5.0) Lipase 77 U/L (73-393) Laboratory Tests Test 05/09/18 13:57 White Blood Count 9.3 x10^3/uL (4.0-11.0) Red Blood Count 3.93 x10^6/uL (4.30-5.70) Hemoglobin 12.5 g/dL (13.0-17.5) Hematocrit 37.6 % (39.0-53.0) Mean Corpuscular Volume 96 fL (79-100) Mean Corpuscular Hemoglobin 32 pg (25-35) Mean Corpuscular Hemoglobin Concent 33 g/dL (31-37) Red Cell Distribution Width 13.2 % (11.5-14.5) Platelet Count 210 x10^3/uL (140-400) Neutrophils (%) (Auto) 63 % (31-73) Lymphocytes (%) (Auto) 20 % (24-48) Monocytes (%) (Auto) 11 % (0-9) Eosinophils (%) (Auto) 5 % (0-3) Basophils (%) (Auto) 1 % (0-3) Neutrophils # (Auto) 5.9 x10^3uL (1.8-7.7) Lymphocytes # (Auto) 1.8 x10^3/uL (1.0-4.8) Monocytes # (Auto) 1.0 x10^3/uL (0.0-1.1) Eosinophils # (Auto) 0.5 x10^3/uL (0.0-0.7) Basophils # (Auto) 0.1 x10^3/uL (0.0-0.2) Sodium Level 130 mmol/L (136-145) Potassium Level 5.1 mmol/L (3.5-5.1) Chloride Level 94 mmol/L (98-107) Carbon Dioxide Level 26 mmol/L (21-32) Anion Gap 10 (6-14) Blood Urea Nitrogen 73 mg/dL (8-26) Creatinine 4.0 mg/dL (0.7-1.3) Estimated GFR (Cockcroft-Gault) 14.7 Glucose Level 282 mg/dL (70-99) Lactic Acid Level 1.5 mmol/L (0.4-2.0) Calcium Level 9.2 mg/dL (8.5-10.1) Total Bilirubin 0.5 mg/dL (0.2-1.0) Direct Bilirubin 0.2 mg/dL (0.0-0.2) Aspartate Amino Transf (AST/SGOT) 12 U/L (15-37) Alanine Aminotransferase (ALT/SGPT) 11 U/L (16-63) Alkaline Phosphatase 87 U/L (46-116) Troponin I Quantitative 0.032 ng/mL (0.000-0.055) MB-Lnm-C-Type Natriuretic Peptide 9818 pg/mL (0-449) Total Protein 7.4 g/dL (6.4-8.2) Albumin 2.8 g/dL (3.4-5.0) Lipase 77 U/L (73-393) Images Images STATUS: REG CLI ORD. PHYSICIAN: SARATH LAWSON APRN REASON: RIGHT GREAT TOE NON-HEALING WOUND. DIABETIC, NEUROPATHY PROCEDURE: FOOT RIGHT 3V Indication:RIGHT GREAT TOE NON HEALING WOUND, DIABETIC WITH NEUROPATHY TECHNIQUE: 3 views of the right foot COMPARISON:None FINDINGS: No acute fracture or dislocation. Diffuse osteopenia. No cortical erosion or periosteal reaction to suggest radiographic signs of osteomyelitis. Vascular calcifications suggesting peripheral arterial disease. Soft tissue swelling of the distal foot. IMPRESSION: No radiographic evidence of osteomyelitis. Triple phase bone scan recommended if concern for osteomyelitis is high. Electronically signed by: Alexander Paula DO (04/29/2018 12:37 PM) [id number] DICTATED and SIGNED BY: ALEXANDER PAULA DO DATE: 04/29/18 1236 VTE Prophylaxis Ordered VTE Prophylaxis Devices: Yes VTE Pharmacological Prophylaxi: Yes Assessment/Plan Assessment/Plan impression DM DEEP complicated wound/HEEL right foot suspect osteomyelitis Diabetes type 2 with HX hypoglycemic episodes- Generalized weakness- ESRD on dialysis Saturday, noncompliance x 1 week with dialysis Anemia of ESRD Hypertension controlled Indwelling right HD catheter Right calcaneal wound s/p debridement, excision subcutaneous tissue and skin . Right big toe ulcer - increased redness PAD ESRD/HD via AVF plan admit ID consult wound care consult nephrology consult VASCULAR SURGERY CONSULT xray right foot emperic iv antibiotics blood cult may require amputation r foot COMPARISON: None available TECHNIQUE: Axial CT images of the right foot were performed without and with IV contrast. Coronal and sagittal reformats are performed Exposure: One or more of the following individualized dose reduction techniques were utilized for this examination: 1. Automated exposure control 2. Adjustment of the mA and/or kV according to patient size 3. Use of iterative reconstruction technique FINDINGS: The attachment of the Achilles tendon to the calcaneus grossly appears intact. The alignment of the tarsal bones, tarsometatarsal joints, tarsophalangeal joints, interphalangeal grossly appears unremarkable. There is a skin ulcer identified in the plantar medial aspect of the heel with tiny foci of air posteriorly. Mild fat stranding identified in the soft tissue of the heel inferiorly and posterior to the calcaneus. No evidence of cortical disruption is identified however there is mild scalloping of the cortex of the posterior inferior calcaneus laterally with surrounding sclerosis. Mild degenerative disease identified in the ankle joint. Small subchondral cysts or old osteochondral defects identified in the talar dome medially and laterally. Mild to moderate degenerative changes identified in the tarsal joints, tarsometatarsal joints, metatarsophalangeal joints. Vascular calcifications identified. IMPRESSION: 1. No evidence of cortical disruption to suggest osteomyelitis on this CT scan however examination is limited. There is mild scalloping of the posterolateral inferior calcaneus probably physiological. Consider follow-up triphasic bone scan. 2. Degenerative changes as described above. 3. Small skin ulcer ulcer identified in the plantar medial aspect of the heel with tiny foci of air posteriorly. Mild fat stranding identified in the soft tissue of the heel inferiorly and posterior to the calcaneus could be edema or soft tissue infection. 2. Electronically signed by: Damion Ricks MD (03/19/2018 9:30 AM) [facility] DICTATED and SIGNED BY: DAMION RICKS MD DATE: 03/19/18920 RYAN ROY MD May 09, 2018 15:08
[2018-05-09] MEDS ORDERED: ONDANSETRON PF 4 MG/2 ML VIAL. IV PRN (15:15)
[2018-05-09] MEDS: VANCOMYCIN PER PHARMACY MC PRN (16:00)
--- NOTE | 2018-05-09 16:00 | RAD ---
Right foot, 3 views, 05/09/2018: HISTORY: Diabetic foot ulcer There is moderate patchy bony demineralization. There are mild scattered degenerative changes. No fracture or dislocation is identified. There does appear to be a soft tissue defect along the posterior aspect of the calcaneus. There is subtle underlying cortical discontinuity raising the possibility of osteomyelitis versus neuropathic change. Moderate scattered arterial calcifications are present. IMPRESSION: 1. Patchy bony demineralization. 2. Subtle cortical discontinuity along the posterior margin of the calcaneus raising the possibility of osteomyelitis. Electronically signed by: Jeffry Smith MD (05/09/2018 3:57 PM) [facility]
--- NOTE | 2018-05-09 16:06 | NUR ---
Pharmacy Vancomycin Dosing Note S:Consulted to monitor and dose vancomycin started 05/09/18. O:BRIDGET TATE is a 77 year old M with Cellulitis . Height: 6 feet, 0 inches Weight: 104.237046 kg [place] Body Weight: 77.60 Adjusted Body Weight: 88.28 Dosing Weight: Actual Other Antibiotics: Zosyn LABS: Last BUN: 73 Last Creatinine: 4.0 Creatinine Clearance: HD on mL/min Last WBC: 9.3 Last Procalcitonin: Tmax (past 24 hours): 98.8 Microbiology: I/O: Drug Levels: Last level: on at Last dose given 05/09/18 at 1528 Vancomycin Dosing: Loading Dose: 2000 mg x1 Dosing Weight: Actual Target Trough: 10-20 A: Based on weight and HD status: P: 1. Vancomycin 2000mg IV X1. 2. Follow up Random level on 05/11/18 at 0600 3. Pharmacy will continue to monitor, follow and adjust therapy as needed. Ger Almeida RPH, 05/09/18 1607 Addendum: 05/09/18 at 1614 by Ger Almeida RPH PHA Random trough is timed for 05/12 @ 0600
--- NOTE | 2018-05-09 16:48 | PHYS DOC ---
Past Medical History Past Medical History: Anxiety, CHF, COPD, Diabetes-Type II, Heart Disease, Hypertension, Renal Disease Additional Past Medical Histor: CHORNIC KIDNEY DISEASE-DIALYSIS Past Surgical History: Coronary Bypass Surgery, Pacemaker, Tonsillectomy Additional Past Surgical Histo: R chest dialysis access, PACEMAKER, BILAT FEET Alcohol Use: Rarely Drug Use: None Adult General Chief Complaint Chief Complaint: OTHER COMPLAINTS HPI HPI 77-year-old male presenting the emergency department today with worsening ulcer in the right foot with generalized weakness and not gained dialysis for about a week. He was seen in local wound clinic and referred here for admission to the hospital. He has pain in the right foot that is a throbbing moderate nonradiating intermittent pain. He denies any fevers or chills or cough. Review of systems is negative for chest pain shortness of breath abdominal pain cough vomiting or chills. All other review of systems is negative unless otherwise noted in history of present illness. ED course: 77-year-old male presenting with right foot wound that is worsening and has not received dialysis for about a week. On arrival he is afebrile with normal heart rate satting well on room air. He did have low blood pressure in clinic in the 90s area here, the patient's blood pressure was about 110 systolic he is well-appearing and alert. We initiated broad-spectrum antibiotics took an x-ray of the foot along with drawing blood work. He has a mild anemia , WBC count is within normal limits. CBC shows mildly elevated potassium. Sodium is mildly low. Her BNP is quite elevated. Troponin is normal limits. Lactic acid is within normal limits. Albumin is low to suggest malnutrition. X-ray shows probable osteomyelitis. We will admit the patient for IV antibiotics. I spoke with Dr. Neff who accepts the patient for admission. Review of Systems Review of Systems SEE ABOVE. Current Medications Current Medications Current Medications Medications (Trade) Dose Ordered Sig/Cherie Start Time Stop Time Status Last Admin Dose Admin Piperacillin Sod/ Tazobactam Sod (Zosyn Per Pharmacy) 1 each PRN DAILY PRN 05/09/18 14:15 Piperacillin Sod/ Tazobactam Sod 2.25 gm/Sodium Chloride 50 ml @ 100 mls/hr 1X ONCE 05/09/18 14:15 05/09/18 14:44 DC 05/09/18 14:52 100 MLS/HR Vancomycin HCl (Vanco Per Pharmacy) 1 each PRN DAILY PRN 05/09/18 14:15 05/09/18 16:00 1 EACH Vancomycin HCl 2 gm/Sodium Chloride 500 ml @ 250 mls/hr 1X ONCE 05/09/18 15:00 05/09/18 16:59 05/09/18 15:28 250 MLS/HR Allergies Allergies Allergies Coded Allergies Type Severity Reaction Last Updated Verified atorvastatin Allergy Intermediate 03/07/18 Yes bacitracin Allergy Intermediate 05/31/17 Yes neomycin Allergy Intermediate 05/31/17 Yes polymyxin B Allergy Intermediate 05/31/17 Yes rosiglitazone Allergy Intermediate 03/07/18 Yes I S O L A T I O N *CONTACT* Allergy Unknown 12/30/17 Yes Physical Exam Physical Exam SEE ABOVE Constitutional: Well developed, well nourished, no acute distress, non-toxic appearance. HENT: Normocephalic, atraumatic, bilateral external ears normal, oropharynx moist, no oral exudates, nose normal. [] Eyes: PERRLA, EOMI, conjunctiva normal, no discharge. Neck: Normal range of motion, no tenderness, supple, no stridor. [] Cardiovascular:Heart rate regular rhythm, no murmur Lungs & Thorax: Bilateral breath sounds clear to auscultation [] Abdomen: Bowel sounds normal, soft, no tenderness, no masses, no pulsatile masses. Skin: Warm, dry, no erythema, no rash. [] Back: No tenderness, no CVA tenderness. [] Extremities: The patient's right heel has a large ulcer that probably probes down to bone though the tissue has drainage that obscures the view. He also has a large ulcer on the dorsum of his first MTP joint. Otherwise the extremities have 2 second cap refill and are atraumatic. Neurologic: Alert and oriented X 3, normal motor function, normal sensory function, no focal deficits noted. Psychologic: Affect normal, judgement normal, mood normal. [] Current Patient Data Vital Signs Vital Signs Date Time Temp Pulse Resp B/P (MAP) Pulse Ox O2 Delivery O2 Flow Rate FiO2 05/09/18 14:30 62 20 110/59 (76) 96 Room Air 05/09/18 13:38 98.8 98.8 Lab Values Laboratory Tests Test 05/09/18 13:57 White Blood Count 9.3 x10^3/uL (4.0-11.0) Red Blood Count 3.93 x10^6/uL (4.30-5.70) L Hemoglobin 12.5 g/dL (13.0-17.5) L Hematocrit 37.6 % (39.0-53.0) L Mean Corpuscular Volume 96 fL (79-100) Mean Corpuscular Hemoglobin 32 pg (25-35) Mean Corpuscular Hemoglobin Concent 33 g/dL (31-37) Red Cell Distribution Width 13.2 % (11.5-14.5) Platelet Count 210 x10^3/uL (140-400) Neutrophils (%) (Auto) 63 % (31-73) Lymphocytes (%) (Auto) 20 % (24-48) L Monocytes (%) (Auto) 11 % (0-9) H Eosinophils (%) (Auto) 5 % (0-3) H Basophils (%) (Auto) 1 % (0-3) Neutrophils # (Auto) 5.9 x10^3uL (1.8-7.7) Lymphocytes # (Auto) 1.8 x10^3/uL (1.0-4.8) Monocytes # (Auto) 1.0 x10^3/uL (0.0-1.1) Eosinophils # (Auto) 0.5 x10^3/uL (0.0-0.7) Basophils # (Auto) 0.1 x10^3/uL (0.0-0.2) Sodium Level 130 mmol/L (136-145) L Potassium Level 5.1 mmol/L (3.5-5.1) Chloride Level 94 mmol/L (98-107) L Carbon Dioxide Level 26 mmol/L (21-32) Anion Gap 10 (6-14) Blood Urea Nitrogen 73 mg/dL (8-26) H Creatinine 4.0 mg/dL (0.7-1.3) H Estimated GFR (Cockcroft-Gault) 14.7 Glucose Level 282 mg/dL (70-99) H Lactic Acid Level 1.5 mmol/L (0.4-2.0) Calcium Level 9.2 mg/dL (8.5-10.1) Total Bilirubin 0.5 mg/dL (0.2-1.0) Direct Bilirubin 0.2 mg/dL (0.0-0.2) Aspartate Amino Transferase (AST) 12 U/L (15-37) L Alanine Aminotransferase (ALT) 11 U/L (16-63) L Alkaline Phosphatase 87 U/L (46-116) Troponin I Quantitative 0.032 ng/mL (0.000-0.055) OW-Rvb-F-Type Natriuretic Peptide 9818 pg/mL (0-449) H Total Protein 7.4 g/dL (6.4-8.2) Albumin 2.8 g/dL (3.4-5.0) L Lipase 77 U/L (73-393) Laboratory Tests 05/09/18 13:57 Laboratory Tests 05/09/18 13:57 EKG EKG [] Radiology/Procedures Radiology/Procedures [] Course & Med Decision Making Course & Med Decision Making Pertinent Labs and Imaging studies reviewed. (See chart for details) [] Dragon Disclaimer Dragon Disclaimer This electronic medical record was generated, in whole or in part, using a voice recognition dictation system. Departure Departure Impression: Primary Impression: Open wound of right foot Additional Impressions: End stage renal disease Osteomyelitis Disposition: ADMITTED INPATIENT Admitting Physician: Edu Boogie Condition: STABLE Referrals: ANDREA TSANG MD (PCP) Problem Qualifiers DARCIE BROOKS MD May 09, 2018 16:48
[2018-05-09 19:00] VITALS: BP 105/43
[2018-05-09] MEDS: LACTOBACILLUS RHAMNOSUS GG 1 CAPSULE. PO SCH (20:59)
[2018-05-09] MEDS: PIPERACILLIN/TAZOBACTAM 2.25 GM in IV NORMAL SALINE 50ML 50 ML IV SCH (21:53)
[2018-05-09 23:00] VITALS: BP 107/44
[2018-05-09] MEDS: MORPHINE SULFATE 4 MG/ML VIAL. IV PRN (23:04)
[2018-05-10] VITALS (8 sets, daily range): BP systolic 94–124; BP diastolic 39–76
[2018-05-10] MEDS: MORPHINE SULFATE 4 MG/ML VIAL. IV PRN ×2 (01:52→06:43)
[2018-05-10 05:22] LABS: BASO % 1 % (0-3); EOS # 0.6 x10^3/uL (0.0-0.7); EOS % 7 % (0-3); HEMATOCRIT 33.6 % (39.0-53.0); HEMOGLOBIN 11.2 g/dL (13.0-17.5); LYMPH # 2.1 x10^3/uL (1.0-4.8); LYMPH % 23 % (24-48); MEAN CORPUSCULAR HEMOGLOBIN 32 pg (25-35); MEAN CORPUSCULAR HGB CONC 33 g/dL (31-37); MEAN CORPUSCULAR VOLUME 96 fL (79-100); MONO # 1.1 x10^3/uL (0.0-1.1); MONO % 12 % (0-9); NEUT # 5.4 x10^3uL (1.8-7.7); NEUT % 59 % (31-73); PLATELET COUNT 190 x10^3/uL (140-400); RED BLOOD COUNT 3.49 x10^6/uL (4.30-5.70); RED CELL DISTRIBUTION WIDTH 13.1 % (11.5-14.5); WHITE BLOOD COUNT 9.3 x10^3/uL (4.0-11.0)
[2018-05-10 05:57] LABS: CALCIUM 8.5 mg/dL (8.5-10.1); CREATININE 4.1 mg/dL (0.7-1.3); GFR 14.3; POTASSIUM 4.8 mmol/L (3.5-5.1)
[2018-05-10] MEDS: PIPERACILLIN/TAZOBACTAM 2.25 GM in IV NORMAL SALINE 50ML 50 ML IV SCH ×3 (05:58→21:36)
--- NOTE | 2018-05-10 08:33 | NUR ---
Dr. Mendiola making rounds notified patient blood sugar 202, no insulin orders and home medications need reconciliation, he verb. understanding.
[2018-05-10] MEDS: LACTOBACILLUS RHAMNOSUS GG 1 CAPSULE. PO SCH ×2 (08:38→09:36)
[2018-05-10] MEDS ORDERED: traZODone 50 MG TABLET. PO PRN (08:45)
[2018-05-10] MEDS: METOPROLOL TART IMMED RELEASE 25 MG TABLET. PO SCH ×2 (09:00→21:36)
[2018-05-10] MEDS: metOLazone 2.5 MG TABLET PO SCH (09:30)
[2018-05-10] MEDS: BUMETANIDE 1 MG TABLET. PO SCH (09:30)
[2018-05-10] MEDS: CHOLECALCIFEROL (VITAMIN D3) 1,000 UNIT TABLET PO SCH (09:36)
[2018-05-10] MEDS: SERTRALINE 50 MG TABLET. PO SCH (09:36)
[2018-05-10] MEDS: SODIUM BICARBONATE 650 MG TABLET. PO SCH ×2 (09:36→21:33)
[2018-05-10] MEDS: HYDROcodone/APAP 5/325MG 1 TAB TABLET PO PRN (09:40)
--- NOTE | 2018-05-10 10:40 | NUR ---
Holding some medications r/t dialysis scheduled for noon per dialysis nurse Laurel AMIN. Patient verb. understanding POC.
--- NOTE | 2018-05-10 10:45 | PDOC ---
PROGRESS NOTES Chief Complaint Chief Complaint DM DEEP complicated wound/HEEL right foot suspect osteomyelitis Diabetes type 2 with HX hypoglycemic episodes- Generalized weakness- ESRD on dialysis Saturday, noncompliance x 1 week with dialysis Anemia of ESRD Hypertension controlled Indwelling right HD catheter Right calcaneal wound s/p debridement, excision subcutaneous tissue and skin . Right big toe ulcer - increased redness PAD ESRD/HD via AVF History of Present Illness History of Present Illness MRI foot, cannot have contrast due to ESRD ID consult wound care consult nephrology consult VASCULAR SURGERY CONSULT Vitals Vitals Vital Signs Date Time Temp Pulse Resp B/P (MAP) Pulse Ox O2 Delivery O2 Flow Rate FiO2 05/10/18 09:40 18 05/10/18 07:15 Room Air 05/10/18 07:00 97.9 63 113/43 (66) 91 97.9 Physical Exam General: Alert, Oriented X3, Cooperative, mild distress Lungs: Clear, Other Abdomen: Normal bowel sounds Extremities: No clubbing Skin: No rashes, No breakdown Labs LABS Laboratory Tests Test 05/09/18 13:57 05/09/18 17:45 05/09/18 20:38 05/10/18 05:00 White Blood Count 9.3 x10^3/uL (4.0-11.0) 9.3 x10^3/uL (4.0-11.0) Red Blood Count 3.93 x10^6/uL (4.30-5.70) 3.49 x10^6/uL (4.30-5.70) Hemoglobin 12.5 g/dL (13.0-17.5) 11.2 g/dL (13.0-17.5) Hematocrit 37.6 % (39.0-53.0) 33.6 % (39.0-53.0) Mean Corpuscular Volume 96 fL (79-100) 96 fL (79-100) Mean Corpuscular Hemoglobin 32 pg (25-35) 32 pg (25-35) Mean Corpuscular Hemoglobin Concent 33 g/dL (31-37) 33 g/dL (31-37) Red Cell Distribution Width 13.2 % (11.5-14.5) 13.1 % (11.5-14.5) Platelet Count 210 x10^3/uL (140-400) 190 x10^3/uL (140-400) Neutrophils (%) (Auto) 63 % (31-73) 59 % (31-73) Lymphocytes (%) (Auto) 20 % (24-48) 23 % (24-48) Monocytes (%) (Auto) 11 % (0-9) 12 % (0-9) Eosinophils (%) (Auto) 5 % (0-3) 7 % (0-3) Basophils (%) (Auto) 1 % (0-3) 1 % (0-3) Neutrophils # (Auto) 5.9 x10^3uL (1.8-7.7) 5.4 x10^3uL (1.8-7.7) Lymphocytes # (Auto) 1.8 x10^3/uL (1.0-4.8) 2.1 x10^3/uL (1.0-4.8) Monocytes # (Auto) 1.0 x10^3/uL (0.0-1.1) 1.1 x10^3/uL (0.0-1.1) Eosinophils # (Auto) 0.5 x10^3/uL (0.0-0.7) 0.6 x10^3/uL (0.0-0.7) Basophils # (Auto) 0.1 x10^3/uL (0.0-0.2) 0.0 x10^3/uL (0.0-0.2) Sodium Level 130 mmol/L (136-145) 131 mmol/L (136-145) Potassium Level 5.1 mmol/L (3.5-5.1) 4.8 mmol/L (3.5-5.1) Chloride Level 94 mmol/L (98-107) 95 mmol/L (98-107) Carbon Dioxide Level 26 mmol/L (21-32) 24 mmol/L (21-32) Anion Gap 10 (6-14) 12 (6-14) Blood Urea Nitrogen 73 mg/dL (8-26) 78 mg/dL (8-26) Creatinine 4.0 mg/dL (0.7-1.3) 4.1 mg/dL (0.7-1.3) Estimated GFR (Cockcroft-Gault) 14.7 14.3 Glucose Level 282 mg/dL (70-99) 238 mg/dL (70-99) Lactic Acid Level 1.5 mmol/L (0.4-2.0) Calcium Level 9.2 mg/dL (8.5-10.1) 8.5 mg/dL (8.5-10.1) Total Bilirubin 0.5 mg/dL (0.2-1.0) Direct Bilirubin 0.2 mg/dL (0.0-0.2) Aspartate Amino Transf (AST/SGOT) 12 U/L (15-37) Alanine Aminotransferase (ALT/SGPT) 11 U/L (16-63) Alkaline Phosphatase 87 U/L (46-116) Troponin I Quantitative 0.032 ng/mL (0.000-0.055) CP-Tch-D-Type Natriuretic Peptide 9818 pg/mL (0-449) Total Protein 7.4 g/dL (6.4-8.2) Albumin 2.8 g/dL (3.4-5.0) Lipase 77 U/L (73-393) Glucose (Fingerstick) 197 mg/dL (70-99) 240 mg/dL (70-99) Test 05/10/18 08:04 Glucose (Fingerstick) 202 mg/dL (70-99) Review of Systems Review of Systems no n.v.d Assessment and Plan Assessmemt and Plan Problems Medical Problems: (1) Open wound of right foot Status: Acute (2) Osteomyelitis Status: Acute Comment Review of Relevant I have reviewed the following items sukumar (where applicable) has been applied. Labs Laboratory Tests Test 05/09/18 13:57 05/09/18 17:45 05/09/18 20:38 05/10/18 05:00 White Blood Count 9.3 x10^3/uL (4.0-11.0) 9.3 x10^3/uL (4.0-11.0) Red Blood Count 3.93 x10^6/uL (4.30-5.70) 3.49 x10^6/uL (4.30-5.70) Hemoglobin 12.5 g/dL (13.0-17.5) 11.2 g/dL (13.0-17.5) Hematocrit 37.6 % (39.0-53.0) 33.6 % (39.0-53.0) Mean Corpuscular Volume 96 fL (79-100) 96 fL (79-100) Mean Corpuscular Hemoglobin 32 pg (25-35) 32 pg (25-35) Mean Corpuscular Hemoglobin Concent 33 g/dL (31-37) 33 g/dL (31-37) Red Cell Distribution Width 13.2 % (11.5-14.5) 13.1 % (11.5-14.5) Platelet Count 210 x10^3/uL (140-400) 190 x10^3/uL (140-400) Neutrophils (%) (Auto) 63 % (31-73) 59 % (31-73) Lymphocytes (%) (Auto) 20 % (24-48) 23 % (24-48) Monocytes (%) (Auto) 11 % (0-9) 12 % (0-9) Eosinophils (%) (Auto) 5 % (0-3) 7 % (0-3) Basophils (%) (Auto) 1 % (0-3) 1 % (0-3) Neutrophils # (Auto) 5.9 x10^3uL (1.8-7.7) 5.4 x10^3uL (1.8-7.7) Lymphocytes # (Auto) 1.8 x10^3/uL (1.0-4.8) 2.1 x10^3/uL (1.0-4.8) Monocytes # (Auto) 1.0 x10^3/uL (0.0-1.1) 1.1 x10^3/uL (0.0-1.1) Eosinophils # (Auto) 0.5 x10^3/uL (0.0-0.7) 0.6 x10^3/uL (0.0-0.7) Basophils # (Auto) 0.1 x10^3/uL (0.0-0.2) 0.0 x10^3/uL (0.0-0.2) Sodium Level 130 mmol/L (136-145) 131 mmol/L (136-145) Potassium Level 5.1 mmol/L (3.5-5.1) 4.8 mmol/L (3.5-5.1) Chloride Level 94 mmol/L (98-107) 95 mmol/L (98-107) Carbon Dioxide Level 26 mmol/L (21-32) 24 mmol/L (21-32) Anion Gap 10 (6-14) 12 (6-14) Blood Urea Nitrogen 73 mg/dL (8-26) 78 mg/dL (8-26) Creatinine 4.0 mg/dL (0.7-1.3) 4.1 mg/dL (0.7-1.3) Estimated GFR (Cockcroft-Gault) 14.7 14.3 Glucose Level 282 mg/dL (70-99) 238 mg/dL (70-99) Lactic Acid Level 1.5 mmol/L (0.4-2.0) Calcium Level 9.2 mg/dL (8.5-10.1) 8.5 mg/dL (8.5-10.1) Total Bilirubin 0.5 mg/dL (0.2-1.0) Direct Bilirubin 0.2 mg/dL (0.0-0.2) Aspartate Amino Transf (AST/SGOT) 12 U/L (15-37) Alanine Aminotransferase (ALT/SGPT) 11 U/L (16-63) Alkaline Phosphatase 87 U/L (46-116) Troponin I Quantitative 0.032 ng/mL (0.000-0.055) SG-Xem-A-Type Natriuretic Peptide 9818 pg/mL (0-449) Total Protein 7.4 g/dL (6.4-8.2) Albumin 2.8 g/dL (3.4-5.0) Lipase 77 U/L (73-393) Glucose (Fingerstick) 197 mg/dL (70-99) 240 mg/dL (70-99) Test 05/10/18 08:04 Glucose (Fingerstick) 202 mg/dL (70-99) Laboratory Tests Test 05/09/18 13:57 05/09/18 17:45 05/09/18 20:38 05/10/18 05:00 White Blood Count 9.3 x10^3/uL (4.0-11.0) 9.3 x10^3/uL (4.0-11.0) Red Blood Count 3.93 x10^6/uL (4.30-5.70) 3.49 x10^6/uL (4.30-5.70) Hemoglobin 12.5 g/dL (13.0-17.5) 11.2 g/dL (13.0-17.5) Hematocrit 37.6 % (39.0-53.0) 33.6 % (39.0-53.0) Mean Corpuscular Volume 96 fL (79-100) 96 fL (79-100) Mean Corpuscular Hemoglobin 32 pg (25-35) 32 pg (25-35) Mean Corpuscular Hemoglobin Concent 33 g/dL (31-37) 33 g/dL (31-37) Red Cell Distribution Width 13.2 % (11.5-14.5) 13.1 % (11.5-14.5) Platelet Count 210 x10^3/uL (140-400) 190 x10^3/uL (140-400) Neutrophils (%) (Auto) 63 % (31-73) 59 % (31-73) Lymphocytes (%) (Auto) 20 % (24-48) 23 % (24-48) Monocytes (%) (Auto) 11 % (0-9) 12 % (0-9) Eosinophils (%) (Auto) 5 % (0-3) 7 % (0-3) Basophils (%) (Auto) 1 % (0-3) 1 % (0-3) Neutrophils # (Auto) 5.9 x10^3uL (1.8-7.7) 5.4 x10^3uL (1.8-7.7) Lymphocytes # (Auto) 1.8 x10^3/uL (1.0-4.8) 2.1 x10^3/uL (1.0-4.8) Monocytes # (Auto) 1.0 x10^3/uL (0.0-1.1) 1.1 x10^3/uL (0.0-1.1) Eosinophils # (Auto) 0.5 x10^3/uL (0.0-0.7) 0.6 x10^3/uL (0.0-0.7) Basophils # (Auto) 0.1 x10^3/uL (0.0-0.2) 0.0 x10^3/uL (0.0-0.2) Sodium Level 130 mmol/L (136-145) 131 mmol/L (136-145) Potassium Level 5.1 mmol/L (3.5-5.1) 4.8 mmol/L (3.5-5.1) Chloride Level 94 mmol/L (98-107) 95 mmol/L (98-107) Carbon Dioxide Level 26 mmol/L (21-32) 24 mmol/L (21-32) Anion Gap 10 (6-14) 12 (6-14) Blood Urea Nitrogen 73 mg/dL (8-26) 78 mg/dL (8-26) Creatinine 4.0 mg/dL (0.7-1.3) 4.1 mg/dL (0.7-1.3) Estimated GFR (Cockcroft-Gault) 14.7 14.3 Glucose Level 282 mg/dL (70-99) 238 mg/dL (70-99) Lactic Acid Level 1.5 mmol/L (0.4-2.0) Calcium Level 9.2 mg/dL (8.5-10.1) 8.5 mg/dL (8.5-10.1) Total Bilirubin 0.5 mg/dL (0.2-1.0) Direct Bilirubin 0.2 mg/dL (0.0-0.2) Aspartate Amino Transf (AST/SGOT) 12 U/L (15-37) Alanine Aminotransferase (ALT/SGPT) 11 U/L (16-63) Alkaline Phosphatase 87 U/L (46-116) Troponin I Quantitative 0.032 ng/mL (0.000-0.055) AC-Jxj-L-Type Natriuretic Peptide 9818 pg/mL (0-449) Total Protein 7.4 g/dL (6.4-8.2) Albumin 2.8 g/dL (3.4-5.0) Lipase 77 U/L (73-393) Glucose (Fingerstick) 197 mg/dL (70-99) 240 mg/dL (70-99) Test 05/10/18 08:04 Glucose (Fingerstick) 202 mg/dL (70-99) Medications Current Medications Vancomycin HCl (Vanco Per Pharmacy) 1 each PRN DAILY PRN MC SEE COMMENTS Last administered on 05/09/18at 16:00; Start 05/09/18 at 14:15 Piperacillin Sod/ Tazobactam Sod (Zosyn Per Pharmacy) 1 each PRN DAILY PRN MC SEE COMMENTS; Start 05/09/18 at 14:15 Piperacillin Sod/ Tazobactam Sod 2.25 gm/Sodium Chloride 50 ml @ 100 mls/hr 1X ONCE IV Last administered on 05/09/18at 14:52; Start 05/09/18 at 14:15; Stop 05/09/18 at 14:44; Status DC Vancomycin HCl 2 gm/Sodium Chloride 500 ml @ 250 mls/hr 1X ONCE IV Last administered on 05/09/18at 15:28; Start 05/09/18 at 15:00; Stop 05/09/18 at 16:59 ; Status DC Ondansetron HCl (Zofran) 4 mg PRN Q8HRS PRN IV NAUSEA/VOMITING; Start 05/09/18 at 15:15; Stop 05/10/18 at 15:14 Morphine Sulfate (Morphine Sulfate) 2 mg PRN Q2HR PRN IV PAIN Last administered on 05/10/18at 06:43; Start 05/09/18 at 15:15; Stop 05/10/18 at 15:14 Piperacillin Sod/ Tazobactam Sod 2.25 gm/Sodium Chloride 50 ml @ 100 mls/hr Q8HRS IV Last administered on 05/10/18at 05:58; Start 05/09/18 at 22:00 Vancomycin HCl (Vancomycin Random Level) 1 each 1X ONCE MC ; Start 05/12/18 at 06:00; Stop 05/12/18 at 06:01 Lactobacillus Rhamnosus (Culturelle) 1 cap BID PO Last administered on at 09:36; Start 05/09/18 at 21:00 Aspirin (Ecotrin) 81 mg DAILYWBKFT PO ; Start 05/10/18 at 09:00 Vitamin D (Vitamin D3) 1,000 unit DAILY PO Last administered on 05/10/18at 09:36 ; Start 05/10/18 at 09:00 Clopidogrel Bisulfate (Plavix) 75 mg DAILY PO ; Start 05/10/18 at 09:00 Acetaminophen/ Hydrocodone Bitart (Lortab 5/325) 1 tab PRN Q4HRS PRN PO pain MILD TO MOD Last administered on 05/10/18at 09:40; Start 05/10/18 at 08:45 Insulin Glargine (Lantus) 20 units QHS SQ ; Start 05/10/18 at 21:00 Metoprolol Tartrate (Lopressor) 25 mg BID PO ; Start 05/10/18 at 09:00 Sodium Bicarbonate (Sodium Bicarbonate) 650 mg BID PO Last administered on 05/10at 09:36; Start 05/10/18 at 09:00 Tamsulosin HCl (Flomax) 0.4 mg DAILY PO ; Start 05/10/18 at 09:00 Trazodone HCl (Desyrel) 25 mg PRN QHS PRN PO INSOMNIA; Start 05/10/18 at 08:45 Trazodone HCl (Desyrel) 150 mg QHS PO ; Start 05/10/18 at 21:00 Bumetanide (Bumex) 2 mg DAILY PO ; Start 05/10/18 at 09:30 Insulin Human Lispro (HumaLOG) 10 units TIDWMEALS SQ ; Start 05/10/18 at 12:00 Metolazone (Zaroxolyn) 5 mg DAILY PO ; Start 05/10/18 at 09:30 Simvastatin (Zocor) 80 mg QHS PO ; Start 05/10/18 at 21:00 Sertraline HCl (Zoloft) 100 mg DAILY PO Last administered on 05/10/18at 09:36; Start 05/10/18 at 09:30 Active Scripts Active Lantus Solostar (Insulin Glargine,Hum.rec.anlog) 100 Unit/1 Ml Insuln.pen 20 Units SQ QHS 30 Days Vancomycin Hcl 1 Gm Vial 1 Each MWF WITH DIALYSIS PRN 14 Days [place] 5-325 Tablet (Acetaminophen/Hydrocodone Bitart) 1 Each Tablet 1-2 Tab PO Q4-6HRS 6 Days Aspirin Ec (Aspirin) 81 Mg Tablet.dr 81 Mg PO DAILYWBKFT 30 Days Flomax (Tamsulosin Hcl) 0.4 Mg Cap.er.24h 0.4 Mg PO DAILY Reported Trazodone Hcl 50 Mg Tablet 0.5 Tab PO PRN 1X Trazodone Hcl 50 Mg Tablet 3 Tab PO QHS Lisinopril 20 Mg Tablet 1 Tab PO DAILY Crestor (Rosuvastatin Calcium) 20 Mg Tablet 0.5 Tab PO DAILY Plavix (Clopidogrel Bisulfate) 75 Mg Tablet 75 Mg PO DAILY Sodium Bicarbonate 650 Mg Tablet 650 Mg PO BID Sertraline Hcl 100 Mg Tablet 100 Mg PO DAILY Novolog (Insulin Aspart) 100 Unit/1 Ml Cartridge 10 Unit SQ TIDAC Metoprolol Tartrate 25 Mg Tablet 1 Tab PO BID Metolazone 5 Mg Tablet 5 Mg PO DAILY Vitamin D3 (Cholecalciferol (Vitamin D3)) 1,000 Unit Tablet 1 Tab PO DAILY Bumetanide 2 Mg Tablet 1 Tab PO DAILY Vitals/I & O Vital Sign - Last 24 Hours 05/09/18 05/09/18 05/09/18 05/09/18 13:38 14:30 15:30 16:20 Temp 98.8 98.8 Pulse 60 62 60 60 Resp 18 20 20 20 B/P (MAP) 109/53 (71) 110/59 (76) 111/53 (72) 114/54 (74) Pulse Ox 97 96 97 100 O2 Delivery Room Air Room Air Room Air Room Air 05/09/18 05/09/18 05/09/18 05/09/18 17:00 19:00 19:45 23:00 Temp 97.8 98.6 97.8 98.6 Pulse 71 60 Resp 18 18 B/P (MAP) 105/43 (63) 107/44 (65) Pulse Ox 94 94 O2 Delivery Room Air Room Air Room Air Room Air 05/09/18 05/10/18 05/10/18 05/10/18 23:04 01:52 02:57 06:43 Temp 98.6 98.6 Pulse 61 Resp 18 B/P (MAP) 94/76 (82) Pulse Ox 96 O2 Delivery Room Air Room Air Room Air Room Air 05/10/18 05/10/18 05/10/18 07:00 07:15 09:40 Temp 97.9 97.9 Pulse 63 Resp 18 18 18 B/P (MAP) 113/43 (66) Pulse Ox 91 O2 Delivery Room Air Room Air Intake and Output 05/09/18 05/09/18 05/10/18 15:00 23:00 07:00 Intake Total 170 ml 60 ml Output Total 200 ml 200 ml Balance -30 ml -140 ml VICENTE FLORES MD May 10, 2018 10:45
[2018-05-10] MEDS ORDERED: IV NORMAL SALINE 1000ML BAG 1,000 ML IV PRN ×2 (10:59)
[2018-05-10] MEDS ORDERED: DIALYSIS PATIENT. MC PRN ×2 (11:00)
--- NOTE | 2018-05-10 11:06 | NUR ---
Patient to dialysis per bed, report to [facility] associate.
[2018-05-10] MEDS: VANCOMYCIN PER PHARMACY MC PRN ×2 (11:36→11:37)
--- NOTE | 2018-05-10 11:48 | PDOC2 ---
CONSULT Date of Consult Date of Consult DATE: 05/10/18 TIME: 11:43 Reason for Consult Reason for Consult: ESRD Referring Physician Referring Physician: KIRILL Identification/Chief Complaint Chief Complaint HEEL WOUND Source Source: Chart review History of Present Illness Reason for Visit: THIS IS A 77 YR OLD WITH ESRD, NON COMPLIANT WITH HIS HD. ON OP HD ON MWF BUT SKIPPED HIS TREATMENTS THIS SATURDAY AND SATURDAY DUE TO DIARRHEA. HE HAS A RIGHT HEEL DM RELATED WOUND AND WENT TO THE WOUND CLINIC AND AND WAS SENT TO THE ER FOR POOR WOUND HEALING. LABS ARE C/W ESRD. ESRD IS DUE TO DM II AND HTN Past Medical History Cardiovascular: CAD, CHF, HTN, CA, Hyperlipidemia Pulmonary: Bronchitis CENTRAL NERVOUS SYSTEM: Periperal neuropathy GI: No pertinent hx, Constipation, GERD Hepatobiliary: Cholelithiasis Musculoskeletal: Osteoarthritis Renal/: Chronic renal insuff Endocrine: Diabetes, Hyperparathyroidism Past Surgical History Past Surgical History: Pacemaker, Arthroscopy, CABG Family History Family History: Hypertension Social History No ALCOHOL: none Drugs: None Lives: with Family Current Problem List Problem List Problems Medical Problems: (1) Open wound of right foot Status: Acute (2) Osteomyelitis Status: Acute Current Medications Current Medications Current Medications Vancomycin HCl (Vanco Per Pharmacy) 1 each PRN DAILY PRN MC SEE COMMENTS Last administered on 05/10/18at 11:37; Start 05/09/18 at 14:15 Piperacillin Sod/ Tazobactam Sod (Zosyn Per Pharmacy) 1 each PRN DAILY PRN MC SEE COMMENTS; Start 05/09/18 at 14:15 Piperacillin Sod/ Tazobactam Sod 2.25 gm/Sodium Chloride 50 ml @ 100 mls/hr 1X ONCE IV Last administered on 05/09/18at 14:52; Start 05/09/18 at 14:15; Stop 05/09/18 at 14:44; Status DC Vancomycin HCl 2 gm/Sodium Chloride 500 ml @ 250 mls/hr 1X ONCE IV Last administered on 05/09/18at 15:28; Start 05/09/18 at 15:00; Stop 05/09/18 at 16:59 ; Status DC Ondansetron HCl (Zofran) 4 mg PRN Q8HRS PRN IV NAUSEA/VOMITING; Start 05/09/18 at 15:15; Stop 05/10/18 at 15:14 Morphine Sulfate (Morphine Sulfate) 2 mg PRN Q2HR PRN IV PAIN Last administered on 05/10/18at 06:43; Start 05/09/18 at 15:15; Stop 05/10/18 at 15:14 Piperacillin Sod/ Tazobactam Sod 2.25 gm/Sodium Chloride 50 ml @ 100 mls/hr Q8HRS IV Last administered on 05/10/18at 05:58; Start 05/09/18 at 22:00 Vancomycin HCl (Vancomycin Random Level) 1 each 1X ONCE MC ; Start 05/12/18 at 06:00; Stop 05/12/18 at 06:01 Lactobacillus Rhamnosus (Culturelle) 1 cap BID PO Last administered on at 09:36; Start 05/09/18 at 21:00 Aspirin (Ecotrin) 81 mg DAILYWBKFT PO ; Start 05/10/18 at 09:00 Vitamin D (Vitamin D3) 1,000 unit DAILY PO Last administered on 05/10/18at 09:36 ; Start 05/10/18 at 09:00 Clopidogrel Bisulfate (Plavix) 75 mg DAILY PO ; Start 05/10/18 at 09:00 Acetaminophen/ Hydrocodone Bitart (Lortab 5/325) 1 tab PRN Q4HRS PRN PO pain MILD TO MOD Last administered on 05/10/18at 09:40; Start 05/10/18 at 08:45 Insulin Glargine (Lantus) 20 units QHS SQ ; Start 05/10/18 at 21:00 Metoprolol Tartrate (Lopressor) 25 mg BID PO ; Start 05/10/18 at 09:00 Sodium Bicarbonate (Sodium Bicarbonate) 650 mg BID PO Last administered on 05/10at 09:36; Start 05/10/18 at 09:00 Tamsulosin HCl (Flomax) 0.4 mg DAILY PO ; Start 05/10/18 at 09:00 Trazodone HCl (Desyrel) 25 mg PRN QHS PRN PO INSOMNIA; Start 05/10/18 at 08:45 Trazodone HCl (Desyrel) 150 mg QHS PO ; Start 05/10/18 at 21:00 Bumetanide (Bumex) 2 mg DAILY PO ; Start 05/10/18 at 09:30 Insulin Human Lispro (HumaLOG) 10 units TIDWMEALS SQ ; Start 05/10/18 at 12:00 Metolazone (Zaroxolyn) 5 mg DAILY PO ; Start 05/10/18 at 09:30 Simvastatin (Zocor) 80 mg QHS PO ; Start 05/10/18 at 21:00 Sertraline HCl (Zoloft) 100 mg DAILY PO Last administered on 05/10/18at 09:36; Start 05/10/18 at 09:30 Sodium Chloride 1,000 ml @ 1,000 mls/hr Q1H PRN IV hypotension; Start 05/10/18 at 10:59; Stop 05/10/18 at 16:58 Sodium Chloride 1,000 ml @ 400 mls/hr Q2H30M PRN IV PATENCY; Start 05/10/18 at 10:59; Stop 05/10/18 at 22:58 Info (PHARMACY MONITORING -- do not chart) 1 each PRN DAILY PRN MC SEE COMMENTS ; Start 05/10/18 at 11:00 Info (PHARMACY MONITORING -- do not chart) 1 each PRN DAILY PRN MC SEE COMMENTS ; Start 05/10/18 at 11:00; Status UNV Active Scripts Active Lantus Solostar (Insulin Glargine,Hum.rec.anlog) 100 Unit/1 Ml Insuln.pen 20 Units SQ QHS 30 Days Vancomycin Hcl 1 Gm Vial 1 Each MWF WITH DIALYSIS PRN 14 Days Johnson 5-325 Tablet (Acetaminophen/Hydrocodone Bitart) 1 Each Tablet 1-2 Tab PO Q4-6HRS 6 Days Aspirin Ec (Aspirin) 81 Mg Tablet.dr 81 Mg PO DAILYWBKFT 30 Days Flomax (Tamsulosin Hcl) 0.4 Mg Cap.er.24h 0.4 Mg PO DAILY Reported Trazodone Hcl 50 Mg Tablet 0.5 Tab PO PRN 1X Trazodone Hcl 50 Mg Tablet 3 Tab PO QHS Lisinopril 20 Mg Tablet 1 Tab PO DAILY Crestor (Rosuvastatin Calcium) 20 Mg Tablet 0.5 Tab PO DAILY Plavix (Clopidogrel Bisulfate) 75 Mg Tablet 75 Mg PO DAILY Sodium Bicarbonate 650 Mg Tablet 650 Mg PO BID Sertraline Hcl 100 Mg Tablet 100 Mg PO DAILY Novolog (Insulin Aspart) 100 Unit/1 Ml Cartridge 10 Unit SQ TIDAC Metoprolol Tartrate 25 Mg Tablet 1 Tab PO BID Metolazone 5 Mg Tablet 5 Mg PO DAILY Vitamin D3 (Cholecalciferol (Vitamin D3)) 1,000 Unit Tablet 1 Tab PO DAILY Bumetanide 2 Mg Tablet 1 Tab PO DAILY Allergies Allergies: Coded Allergies: atorvastatin (Verified Allergy, Intermediate, 03/07/18) bacitracin (Verified Allergy, Intermediate, 05/31/17) neomycin (Verified Allergy, Intermediate, 05/31/17) polymyxin B (Verified Allergy, Intermediate, 05/31/17) rosiglitazone (Verified Allergy, Intermediate, 03/07/18) I S O L A T I O N *CONTACT* (Verified Allergy, Unknown, 12/30/17) +MRSA nares 06/21/17 ROS Review of System RIGHT HAND PAIN, CHRONIC AND BETTER DUE TO ACCESS RELATED STEAL General: YES: Fatigue, Malaise, Appetite PSYCHOLOGICAL ROS: YES: Anxiety Eyes: Yes Decreased vision HEENT: YES: [place] ALLERGY AND IMMUNOLOGY: YES: Seasonal Allergies Respiratory: YES: Cough, Shortness of breath Cardiovascular: yes Orthopnea Gastrointestinal: Yes Diarrhea Genitourinary: YES Other (OLIGURIA) Musculoskeletal: Yes Muscular Weakness Neurological: Yes Weakness Skin: Yes Dry Skin Physical Exam General: Alert, Oriented X3, Cooperative, No acute distress HEENT: Atraumatic, PERRLA, EOMI, Mucous membr. moist/pink Lungs: Clear to auscultation Heart: Regular rate, Normal S1, Normal S2 Abdomen: Normal bowel sounds, Soft, No tenderness Extremities: No cyanosis Skin: No breakdown Neuro: Normal speech, Cranial nerves 3-12 NL Psych/Mental Status: Mental status NL, Mood NL MUSCULOSKELETAL: No joint tenderness, No swelling Vitals VITALS Vital Signs Date Time Temp Pulse Resp B/P (MAP) Pulse Ox O2 Delivery O2 Flow Rate FiO2 05/10/18 11:00 98.4 74 18 124/52 (76) 93 Room Air 98.4 05/10/18 10:40 3.0 Labs Labs Laboratory Tests Test 05/09/18 13:57 05/09/18 17:45 05/09/18 20:38 05/10/18 05:00 White Blood Count 9.3 x10^3/uL (4.0-11.0) 9.3 x10^3/uL (4.0-11.0) Red Blood Count 3.93 x10^6/uL (4.30-5.70) 3.49 x10^6/uL (4.30-5.70) Hemoglobin 12.5 g/dL (13.0-17.5) 11.2 g/dL (13.0-17.5) Hematocrit 37.6 % (39.0-53.0) 33.6 % (39.0-53.0) Mean Corpuscular Volume 96 fL (79-100) 96 fL (79-100) Mean Corpuscular Hemoglobin 32 pg (25-35) 32 pg (25-35) Mean Corpuscular Hemoglobin Concent 33 g/dL (31-37) 33 g/dL (31-37) Red Cell Distribution Width 13.2 % (11.5-14.5) 13.1 % (11.5-14.5) Platelet Count 210 x10^3/uL (140-400) 190 x10^3/uL (140-400) Neutrophils (%) (Auto) 63 % (31-73) 59 % (31-73) Lymphocytes (%) (Auto) 20 % (24-48) 23 % (24-48) Monocytes (%) (Auto) 11 % (0-9) 12 % (0-9) Eosinophils (%) (Auto) 5 % (0-3) 7 % (0-3) Basophils (%) (Auto) 1 % (0-3) 1 % (0-3) Neutrophils # (Auto) 5.9 x10^3uL (1.8-7.7) 5.4 x10^3uL (1.8-7.7) Lymphocytes # (Auto) 1.8 x10^3/uL (1.0-4.8) 2.1 x10^3/uL (1.0-4.8) Monocytes # (Auto) 1.0 x10^3/uL (0.0-1.1) 1.1 x10^3/uL (0.0-1.1) Eosinophils # (Auto) 0.5 x10^3/uL (0.0-0.7) 0.6 x10^3/uL (0.0-0.7) Basophils # (Auto) 0.1 x10^3/uL (0.0-0.2) 0.0 x10^3/uL (0.0-0.2) Sodium Level 130 mmol/L (136-145) 131 mmol/L (136-145) Potassium Level 5.1 mmol/L (3.5-5.1) 4.8 mmol/L (3.5-5.1) Chloride Level 94 mmol/L (98-107) 95 mmol/L (98-107) Carbon Dioxide Level 26 mmol/L (21-32) 24 mmol/L (21-32) Anion Gap 10 (6-14) 12 (6-14) Blood Urea Nitrogen 73 mg/dL (8-26) 78 mg/dL (8-26) Creatinine 4.0 mg/dL (0.7-1.3) 4.1 mg/dL (0.7-1.3) Estimated GFR (Cockcroft-Gault) 14.7 14.3 Glucose Level 282 mg/dL (70-99) 238 mg/dL (70-99) Lactic Acid Level 1.5 mmol/L (0.4-2.0) Calcium Level 9.2 mg/dL (8.5-10.1) 8.5 mg/dL (8.5-10.1) Total Bilirubin 0.5 mg/dL (0.2-1.0) Direct Bilirubin 0.2 mg/dL (0.0-0.2) Aspartate Amino Transf (AST/SGOT) 12 U/L (15-37) Alanine Aminotransferase (ALT/SGPT) 11 U/L (16-63) Alkaline Phosphatase 87 U/L (46-116) Troponin I Quantitative 0.032 ng/mL (0.000-0.055) JR-Bjt-P-Type Natriuretic Peptide 9818 pg/mL (0-449) Total Protein 7.4 g/dL (6.4-8.2) Albumin 2.8 g/dL (3.4-5.0) Lipase 77 U/L (73-393) Glucose (Fingerstick) 197 mg/dL (70-99) 240 mg/dL (70-99) Test 05/10/18 08:04 Glucose (Fingerstick) 202 mg/dL (70-99) Laboratory Tests Test 05/09/18 13:57 05/09/18 17:45 05/09/18 20:38 05/10/18 05:00 White Blood Count 9.3 x10^3/uL (4.0-11.0) 9.3 x10^3/uL (4.0-11.0) Red Blood Count 3.93 x10^6/uL (4.30-5.70) 3.49 x10^6/uL (4.30-5.70) Hemoglobin 12.5 g/dL (13.0-17.5) 11.2 g/dL (13.0-17.5) Hematocrit 37.6 % (39.0-53.0) 33.6 % (39.0-53.0) Mean Corpuscular Volume 96 fL (79-100) 96 fL (79-100) Mean Corpuscular Hemoglobin 32 pg (25-35) 32 pg (25-35) Mean Corpuscular Hemoglobin Concent 33 g/dL (31-37) 33 g/dL (31-37) Red Cell Distribution Width 13.2 % (11.5-14.5) 13.1 % (11.5-14.5) Platelet Count 210 x10^3/uL (140-400) 190 x10^3/uL (140-400) Neutrophils (%) (Auto) 63 % (31-73) 59 % (31-73) Lymphocytes (%) (Auto) 20 % (24-48) 23 % (24-48) Monocytes (%) (Auto) 11 % (0-9) 12 % (0-9) Eosinophils (%) (Auto) 5 % (0-3) 7 % (0-3) Basophils (%) (Auto) 1 % (0-3) 1 % (0-3) Neutrophils # (Auto) 5.9 x10^3uL (1.8-7.7) 5.4 x10^3uL (1.8-7.7) Lymphocytes # (Auto) 1.8 x10^3/uL (1.0-4.8) 2.1 x10^3/uL (1.0-4.8) Monocytes # (Auto) 1.0 x10^3/uL (0.0-1.1) 1.1 x10^3/uL (0.0-1.1) Eosinophils # (Auto) 0.5 x10^3/uL (0.0-0.7) 0.6 x10^3/uL (0.0-0.7) Basophils # (Auto) 0.1 x10^3/uL (0.0-0.2) 0.0 x10^3/uL (0.0-0.2) Sodium Level 130 mmol/L (136-145) 131 mmol/L (136-145) Potassium Level 5.1 mmol/L (3.5-5.1) 4.8 mmol/L (3.5-5.1) Chloride Level 94 mmol/L (98-107) 95 mmol/L (98-107) Carbon Dioxide Level 26 mmol/L (21-32) 24 mmol/L (21-32) Anion Gap 10 (6-14) 12 (6-14) Blood Urea Nitrogen 73 mg/dL (8-26) 78 mg/dL (8-26) Creatinine 4.0 mg/dL (0.7-1.3) 4.1 mg/dL (0.7-1.3) Estimated GFR (Cockcroft-Gault) 14.7 14.3 Glucose Level 282 mg/dL (70-99) 238 mg/dL (70-99) Lactic Acid Level 1.5 mmol/L (0.4-2.0) Calcium Level 9.2 mg/dL (8.5-10.1) 8.5 mg/dL (8.5-10.1) Total Bilirubin 0.5 mg/dL (0.2-1.0) Direct Bilirubin 0.2 mg/dL (0.0-0.2) Aspartate Amino Transf (AST/SGOT) 12 U/L (15-37) Alanine Aminotransferase (ALT/SGPT) 11 U/L (16-63) Alkaline Phosphatase 87 U/L (46-116) Troponin I Quantitative 0.032 ng/mL (0.000-0.055) QO-Sbw-C-Type Natriuretic Peptide 9818 pg/mL (0-449) Total Protein 7.4 g/dL (6.4-8.2) Albumin 2.8 g/dL (3.4-5.0) Lipase 77 U/L (73-393) Glucose (Fingerstick) 197 mg/dL (70-99) 240 mg/dL (70-99) Test 05/10/18 08:04 Glucose (Fingerstick) 202 mg/dL (70-99) Assessment/Plan Assessment/Plan IMP [id number] M AND W THIS WK NON COMPLIANCE DIARRHEA-BETTER ANEMIA DM II HTN RIGHT HEEL WOUND PLAN WOUND CARE ANTIBIOTICS HD TODAY UF TO LOUIE MENSAH MD May 10, 2018 11:48
[2018-05-10] MEDS: INSULIN LISPRO 300 UNITS/3 ML INSULN.PEN. SQ SCH ×2 (12:00→17:19)
[2018-05-10] MEDS: CLOPIDOGREL BISULFATE 75 MG TABLET PO SCH (15:19)
[2018-05-10] MEDS: ASPIRIN ENTERIC COATED 81 MG TABLET.DR. PO SCH (15:19)
[2018-05-10] MEDS: TAMSULOSIN 0.4 MG CAP.ER.24H. PO SCH (15:19)
--- NOTE | 2018-05-10 15:26 | NUR ---
Patient return from dialysis per bed at 1500, patient blood pressure 82/32, pulse 80, [place] ground service equipment mechanic reports blood pressure last taken for her was 120/70. Patient denies symptoms, eating late lunch, will recheck blood pressure when done. Patient alert and oriented times four, skin warm and dry, side rails up times two, call light at hand. Insulin at noon not given as patient in dialysis and blood sugar at end of run 146. Dr. Mendiola notified MRI ordered was cancelled as patient has a pacemaker. Continue cares and monitor. Patient verb. understanding POC.
--- NOTE | 2018-05-10 15:42 | PDOC ---
Infectious Disease Note Vital Sign Vital Signs Vital Signs Date Time Temp Pulse Resp B/P (MAP) Pulse Ox O2 Delivery O2 Flow Rate FiO2 05/10/18 11:00 98.4 74 18 124/52 (76) 93 Room Air 98.4 05/10/18 10:40 3.0 Labs Lab Laboratory Tests Test 05/09/18 17:45 05/09/18 20:38 05/10/18 05:00 05/10/18 08:04 Glucose (Fingerstick) 197 mg/dL (70-99) 240 mg/dL (70-99) 202 mg/dL (70-99) White Blood Count 9.3 x10^3/uL (4.0-11.0) Red Blood Count 3.49 x10^6/uL (4.30-5.70) Hemoglobin 11.2 g/dL (13.0-17.5) Hematocrit 33.6 % (39.0-53.0) Mean Corpuscular Volume 96 fL (79-100) Mean Corpuscular Hemoglobin 32 pg (25-35) Mean Corpuscular Hemoglobin Concent 33 g/dL (31-37) Red Cell Distribution Width 13.1 % (11.5-14.5) Platelet Count 190 x10^3/uL (140-400) Neutrophils (%) (Auto) 59 % (31-73) Lymphocytes (%) (Auto) 23 % (24-48) Monocytes (%) (Auto) 12 % (0-9) Eosinophils (%) (Auto) 7 % (0-3) Basophils (%) (Auto) 1 % (0-3) Neutrophils # (Auto) 5.4 x10^3uL (1.8-7.7) Lymphocytes # (Auto) 2.1 x10^3/uL (1.0-4.8) Monocytes # (Auto) 1.1 x10^3/uL (0.0-1.1) Eosinophils # (Auto) 0.6 x10^3/uL (0.0-0.7) Basophils # (Auto) 0.0 x10^3/uL (0.0-0.2) Sodium Level 131 mmol/L (136-145) Potassium Level 4.8 mmol/L (3.5-5.1) Chloride Level 95 mmol/L (98-107) Carbon Dioxide Level 24 mmol/L (21-32) Anion Gap 12 (6-14) Blood Urea Nitrogen 78 mg/dL (8-26) Creatinine 4.1 mg/dL (0.7-1.3) Estimated GFR (Cockcroft-Gault) 14.3 Glucose Level 238 mg/dL (70-99) Calcium Level 8.5 mg/dL (8.5-10.1) Test 05/10/18 14:00 05/10/18 14:08 Hepatitis B Surface Antigen Nonreactive (Nonreactive) Hepatitis B Surface Antibody Nonreactive Glucose (Fingerstick) 146 mg/dL (70-99) Objective Assessment Large nonhealing calcaneal wound with suspected osteo on x-ray. -h/o debridement subcutaneous tissue and skin, 02/2018. no cultures and CT neg -d/c home on vanc and augmentin x 3 weeks. PVD DM II CKD/HD Pacemaker h/o MRSA h/o Klebsiella (R amp) Plan Plan of Care Vascular surgeon has been consulted, awaiting evaluation. Patient says he is now ready for amputation as he is tired of fighting and burdening his with c/o pain. Continue vanc and Zosyn. Monitor labs/temp. add ESR in am Local wound care Thank you [phone] Patient seen and examined. Chart reviewed in detail. Case discussed with HEALTHCARE RECRUITER. Agree with above plan. NAT BARAKAT APRN May 10, 2018 15:42 ELISE MANE MD May 10, 2018 23:12
--- NOTE | 2018-05-10 17:47 | NUR ---
Patient with coccyx wound, pictured and measured, found with return from dialysis and brief removed for pericare. Nursing news production supervisor Carolyn AMIN notified for P500 bed per protocol, to be ordered. Patient verb. understanding POC.
--- NOTE | 2018-05-10 19:53 | PDOC ---
Provider Note Provider Note (please see full dictation) 77 yo male with ESRD and severe PAD presents with right heel ulcer as well as lateral left foot ulcers. Will get arterial duplex scan to evaluate arterial supply. He will likely need a right below knee amputation. Prognosis of the left foot is also not good. EMANUEL LONG MD May 10, 2018 19:53
[2018-05-10] MEDS: traZODone 50 MG TABLET. PO SCH (21:33)
[2018-05-10] MEDS: SIMVASTATIN 40 MG TABLET. PO SCH (21:35)
[2018-05-10] MEDS: INSULIN GLARGINE 300 UNITS/3 ML INSULN.PEN. SQ SCH (21:40)
--- NOTE | 2018-05-11 01:30 | CONS ---
DATE OF CONSULTATION: 05/10/2018 REFERRING PHYSICIAN: Dr. Fiore and Dr. Neff CHIEF COMPLAINT: Foot ulcer with possible osteomyelitis. HISTORY OF PRESENT ILLNESS: This patient is a 77-year-old male with a past medical history of peripheral vascular disease; diabetes type 2; chronic kidney disease, on hemodialysis as well as a previous history of a left foot infection, status post resection of the fifth toe and metatarsal. He was admitted in February 2018 for right calcaneal wound infection with a high sed rate of 110. Cultures were not obtained at that time and a CT was negative for osteomyelitis. He underwent a debridement and excision of subcutaneous tissue and skin on 03/21/2018. A right [id number] amputation was recommended, but he refused. He wanted to go home. Thus, he was discharged on vancomycin and Augmentin for 3 weeks. Since then, he says he has had nothing, but problems. He continued to follow up with the wound care center where they did several "scrapings." He has been in constant and at times unbearable pain. He says he is tired of fighting and he has had enough. He says it has also been hard on his as he keeps her up at night complaining of pain and he does not want to keep doing that to her. He says he is now ready to have amputation. PAST MEDICAL HISTORY: Peripheral vascular disease; diabetes type 2; chronic kidney disease, on hemodialysis; coronary artery disease; congestive heart failure; hypertension; hyperlipidemia; peripheral neuropathy; GERD; CVA; atrial fibrillation; COPD; BPH. History of gallstone pancreatitis. History of MRSA, history of MRSE bacteremia, history of Klebsiella in urine (resistant to ampicillin). PAST SURGICAL HISTORY: Pacemaker placement. CABG. Cataract removal. Tonsillectomy. Adenoidectomy. Right shoulder surgery. AV fistula. Laparoscopic cholecystectomy. Left femoral to anterior tibial bypass. Open ray type amputation of the left fourth and fifth toes in May 2017. SOCIAL HISTORY: The patient is and lives at home. FAMILY HISTORY: Noncontributory. ALLERGIES: NEOMYCIN, BACITRACIN, ATORVASTATIN, ROSIGLITAZONE, POLYMYXIN B. MEDICATIONS: Vancomycin, Zosyn, probiotics, Plavix. Other medications are available and have been reviewed in the MAR. REVIEW OF SYSTEMS: Other than complaints of constant pain of right heel, the patient denies fevers, chills, sweats or bodyaches. He denies cough, shortness of air, chest discomfort. He denies nausea, vomiting or diarrhea. He says he ambulates on the ball of his foot. His appetite is all right. Denies headache, nasal/sinus congestion or sore throat. He left his dentures at home. PHYSICAL EXAMINATION: VITAL SIGNS: Temperature 98.4, blood pressure 124/52, heart rate 74, respiratory rate 18, pulse oximetry is 93% on room air. BMI 31. GENERAL: The patient is propped up in bed, alert and eating. HEENT: Pupils are equally round. Normal conjunctivae. Oral cavity: Pharynx pink and moist. NECK: Supple. LUNGS: Clear to auscultation. HEART: S1 and S2. Pacemaker. ABDOMEN: Obese, soft and nontender with bowel sounds present. EXTREMITIES: No gross edema or cyanosis. He has a small ulcer of right great toe with nonviable tissue covering the base and without surrounding redness. On the right heel is a large wound that is very close to the bone, also with nonviable tissue and some black eschar about the edge. Dorsalis pedis pulses difficult to palpate. RUE-AV fistula unremarkable. SKIN: Warm without generalized rash. NEUROLOGIC: Alert and oriented x 3. LABORATORY DATA: Today's WBC 9.3; hemoglobin 11.2; platelets 190,000. Creatinine 4.1, BUN 78, sodium 131, potassium 4.8, glucose 238. Total bilirubin 0.5, AST 12, ALT 11. Troponin 0.032. BNP 9818, albumin 2.8, lipase 77. Lactic acid 1.5. Urinalysis and cultures indicated pending. IMAGING: Recent x-ray of right foot showed patchy bony demineralization; subtle cortical discontinuity along the posterior margin of the calcaneus, raising the possibility of osteomyelitis versus neuropathic change. ASSESSMENT: 1. Large nonhealing calcaneal wound with suspected osteomyelitis on x-ray. 2. Peripheral vascular disease. 3. Diabetes mellitus type 2. 4. Chronic kidney disease, on hemodialysis. 5. Pacemaker. 6. History of methicillin-resistant Staphylococcus aureus. 7. History of Klebsiella (resistant to ampicillin). PLAN: Vascular surgeon has been consulted, awaiting evaluation. The patient is now wanting an amputation as he is tired of fighting and burdening his with complaints of pain. Continue the vancomycin and Zosyn. Monitor labs and temperature. We will add a sed rate in the morning. Local wound care. Thank you, Dr. Neff and Dr. Fiore, for asking us to participate in this patient's care. Should you have further questions or concerns, please call. ELISE MANE MD DR: MARIAJOSE/thais JOB#: [id number] / [id number]
[2018-05-11 03:08] VITALS: BP 91/46
--- NOTE | 2018-05-11 03:19 | CONS ---
DATE OF CONSULTATION: 05/10/2018 CHIEF COMPLAINT: Bilateral foot wounds. HISTORY OF PRESENT ILLNESS: The patient is a 77-year-old male with diabetes; chronic renal failure, on dialysis; and severe peripheral arterial disease, who was admitted to the hospital for some generalized malaise. He has missed dialysis 3 times this past week. He has been treated for bilateral foot wounds over the last few months. He had an angiogram with right tibial artery intervention in February. This angiogram demonstrated severe tibial artery occlusive disease. The right anterior tibial artery was successfully opened, but there was no appreciable arterial filling in the region of the right calcaneus and heel. The right heel wound has continued to worsen. He has been followed through the [facility]. He has also had the lateral toes amputated from his left foot. He has had some chronic callus in his left foot that has now opened up 2 ulcers. The angiogram in February also demonstrated diffuse tibial artery disease on the left lower leg. There was single vessel runoff via the peroneal artery with poor filling on to the foot. PAST MEDICAL HISTORY: 1. Diabetes. 2. Coronary artery disease. 3. Hypertension. 4. Chronic renal failure, on hemodialysis. 5. COPD. PAST SURGICAL HISTORY: 1. Coronary artery bypass surgery. 2. Pacemaker implantation. 3. Tonsillectomy. 4. Left toe amputations. 5. Right arm fistula construction. CURRENT MEDICATIONS: Please see detailed medication administration record for dosing details. He is on vancomycin, simvastatin, trazodone, insulin, Zoloft, Zaroxolyn, Bumex, Flomax, metoprolol, Plavix, vitamin D, aspirin, trazodone, [place], Zosyn, lactobacillus. ALLERGIES: ADVERSE REACTION to ATORVASTATIN, BACITRACIN, NEOMYCIN, POLYMYXIN B and ROSIGLITAZONE. SOCIAL HISTORY: He denies any smoking or alcohol use. FAMILY HISTORY: Significant for previous family members with hypertension. REVIEW OF SYSTEMS: Denies any recent fevers, chills, chest pain or shortness of breath. He denies any cough. He denies any nausea, vomiting, diarrhea, constipation, hematochezia or melena. He has chronic renal failure, on hemodialysis and has missed some recent dialysis. He has some chronic sensory loss and weakness of both lower extremities. No lateralizing TIA or stroke symptoms. PHYSICAL EXAMINATION: GENERAL: This is an elderly, chronically ill-appearing male, in no acute distress. VITAL SIGNS: Temperature 97.7, pulse 73, blood pressure 106/51, respirations 18. NECK: Supple, no lymphadenopathy. CARDIOVASCULAR: Regular rhythm. ABDOMEN: Soft, nontender, nondistended. No palpable masses. EXTREMITIES: He has a right arm fistula. He has good radial pulses bilaterally. His femoral pulses are weak. His popliteal and pedal pulses are nonpalpable. He has healed surgical scars on the left lower extremity. His lateral toes on the left foot have been amputated. He has an ulcer over a bony prominence on the lateral aspect of the left foot. He has more superficial ulceration more distally along his surgical amputation site incision. He has a large wound with necrotic tissue in the base on his right heel. This extends down to the calcaneus. He also has a dorsal ulcer on the right first toe. He has mild swelling in both lower legs. LABORATORY DATA: Significant for white blood cell 9.3, hemoglobin 11.2, platelet count of 190. Sodium 131, potassium 4.8, BUN 78, creatinine 4.1, glucose 238. His BNP was 9818. Angiogram with details as described above. IMPRESSION: 1. 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 2. Left lateral foot ulcer. 3. Peripheral arterial disease. 4. Diabetes. 5. Chronic renal failure, on hemodialysis. 6. Coronary artery disease. 7. Chronic obstructive pulmonary disease. RECOMMENDATIONS: 1. Offloading of both foot ulcers. He has Rooke boots for protection. 2. Continue local wound care. 3. We will get an arterial ultrasound to assess arterial flow to both legs. He has known severe tibial artery occlusive disease, likely due to a combination of diabetes and chronic kidney failure. 4. I do not feel that there is a reasonable chance of salvage of the right foot due to the extent of his right heel wounds as well as his underlying diabetes and renal failure, in addition to his severe peripheral arterial disease. He has no appreciable flow to the right heel on previous angiogram. His best option is likely going to be a right below-knee amputation. I discussed risks and benefits with him. He was understanding and mainly concerned about the level of amputation on the right. 5. The prognosis of his left foot is also suspect, but it is not an immediate danger at this time. I am concerned that he may have very poor healing in his lateral foot wounds and will likely end up with a left leg amputation as well. We will await arterial ultrasound before scheduling definitive level of amputation. EMANUEL LONG MD DR: OTTO/thais JOB#: [id number] / [id number] RYAN Morales MD, VENKAT MD PULS, DARCY MD
[2018-05-11 05:04] LABS: BASO % 0 % (0-3); EOS # 0.5 x10^3/uL (0.0-0.7); EOS % 5 % (0-3); HEMATOCRIT 34.9 % (39.0-53.0); HEMOGLOBIN 11.6 g/dL (13.0-17.5); LYMPH # 1.8 x10^3/uL (1.0-4.8); LYMPH % 17 % (24-48); MEAN CORPUSCULAR HEMOGLOBIN 32 pg (25-35); MEAN CORPUSCULAR HGB CONC 33 g/dL (31-37); MEAN CORPUSCULAR VOLUME 96 fL (79-100); MONO # 1.2 x10^3/uL (0.0-1.1); MONO % 11 % (0-9); NEUT # 7.3 x10^3uL (1.8-7.7); NEUT % 67 % (31-73); PLATELET COUNT 198 x10^3/uL (140-400); RED BLOOD COUNT 3.65 x10^6/uL (4.30-5.70); RED CELL DISTRIBUTION WIDTH 13.3 % (11.5-14.5); WHITE BLOOD COUNT 10.9 x10^3/uL (4.0-11.0)
[2018-05-11 05:52] LABS: ALBUMIN 2.4 g/dL (3.4-5.0); ALBUMIN/GLOBULIN RATIO 0.6 (1.0-1.7); CALCIUM 8.5 mg/dL (8.5-10.1); CREATININE 3.1 mg/dL (0.7-1.3); GFR 19.7; POTASSIUM 4.3 mmol/L (3.5-5.1); TOTAL BILIRUBIN 0.5 mg/dL (0.2-1.0); TOTAL PROTEIN 6.6 g/dL (6.4-8.2)
[2018-05-11] MEDS: PIPERACILLIN/TAZOBACTAM 2.25 GM in IV NORMAL SALINE 50ML 50 ML IV SCH ×3 (06:16→21:25)
[2018-05-11 07:00] VITALS: BP 105/54
[2018-05-11] MEDS: INSULIN LISPRO 300 UNITS/3 ML INSULN.PEN. SQ SCH ×3 (08:00→16:53)
[2018-05-11] MEDS: BUMETANIDE 1 MG TABLET. PO SCH (08:27)
[2018-05-11] MEDS: metOLazone 2.5 MG TABLET PO SCH (08:28)
--- NOTE | 2018-05-11 08:29 | NUR ---
Patient refusing P500 bed in spite of coccyx ulcer and encouragement for skin care, patient states cannot sleep on bed, has wedge and does better with turning and reposition off of coccyx with wedge. Patient refusing breakfast this morning, states tired and wants to rest. Insulin held r/t. Diuretics held r/t BP 105/54 and hypotension after dialysis yesterday. See VS record and emar. Patient verb. understanding POC.
--- NOTE | 2018-05-11 08:37 | RAD ---
Arterial Doppler of both lower extremities. HISTORY: Bilateral foot ulcers Duplex ultrasound was used to evaluate the arteries of both lower extremities. Color flow imaging and Doppler were utilized for evaluation. There is a mild atherosclerotic change at the right common femoral artery. Flow at the right common femoral artery is triphasic with a velocity 146 cm/s. There is a biphasic flow pattern in the profunda femoral artery with velocity 1 35 cm/s. Is a biphasic flow pattern in the right femoral artery with velocity 163 cm/s proximally and 130 cm/s distally. There is a monophasic flow pattern with a velocity of 99 cm/s in the popliteal artery. Velocity decreases to 44 cm in the distal right popliteal artery. There is monophasic flow in the mid right anterior tibial with velocity of 63 cm/s. There is a monophasic flow with a velocity of 43 cm/s at the proximal posterior tibial. Velocity is monophasic with a velocity of 40 cm/s the distal posterior tibial on the right. Flow in the dorsalis pedis is not identified at the right foot. There is biphasic flow at the left common femoral artery with velocity of 75 cm/s. There is biphasic flow in the deep femoral with velocity of 61 cm/s on the left. There is biphasic flow with velocity of 67 cm per sec in the proximal superficial femoral artery on the left. There is a focal stenosis with increased velocity up to 143 cm/s in the left mid superficial femoral artery. Biphasic flow is noted in the distal left superficial femoral artery with velocity of 106 cm/s. Velocity of 71 cm/s is noted in the mid popliteal artery. There is atherosclerotic change on the images. There is stenosis of the popliteal with velocity increasing 110 cm/s the distal popliteal artery on the left. There is monophasic flow velocity of 40 cm/s in the mid anterior tibial. Flow was not identified in the left posterior tibial. There is a monophasic flow in the left peroneal artery. Flow is not identified in the dorsalis pedis or posterior tibial distally. IMPRESSION: 1. A biphasic pattern at the left common femoral suggests left aortoiliac disease. 2. There is evidence of stenosis of the superficial femoral artery on the left without occlusion. 3. There is evidence of stenosis in the left popliteal artery. 4. 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 5. Change from biphasic to monophasic at the right superficial femoral artery to popliteal artery suggests a superficial femoral artery stenosis 6. Decreased velocity in the distal popliteal suggests popliteal stenosis. 7. No flow in the dorsalis pedis on the right suggests occlusion the right anterior tibial. 8. Low velocity monophasic flow in the posterior tibial and peroneal on the right suggesting some element of the trifurcation stenosis. Electronically signed by: Agustin Jo MD (05/11/2018 8:33 AM) [facility]
[2018-05-11] MEDS: ASPIRIN ENTERIC COATED 81 MG TABLET.DR. PO SCH (09:06)
[2018-05-11] MEDS: CHOLECALCIFEROL (VITAMIN D3) 1,000 UNIT TABLET PO SCH (09:06)
[2018-05-11] MEDS: SODIUM BICARBONATE 650 MG TABLET. PO SCH ×2 (09:06→21:24)
[2018-05-11] MEDS: CLOPIDOGREL BISULFATE 75 MG TABLET PO SCH (09:07)
[2018-05-11] MEDS: SERTRALINE 50 MG TABLET. PO SCH (09:07)
[2018-05-11] MEDS: LACTOBACILLUS RHAMNOSUS GG 1 CAPSULE. PO SCH ×2 (09:07→21:24)
[2018-05-11] MEDS: METOPROLOL TART IMMED RELEASE 25 MG TABLET. PO SCH ×2 (09:08→21:26)
[2018-05-11] MEDS: TAMSULOSIN 0.4 MG CAP.ER.24H. PO SCH (09:08)
--- NOTE | 2018-05-11 09:43 | PDOC ---
Renal-Progress Notes Subjective Notes Notes FEELING BETTER History of Present Illness Hx of present illness STABLE Vitals Vitals Vital Signs Date Time Temp Pulse Resp B/P (MAP) Pulse Ox O2 Delivery O2 Flow Rate FiO2 05/11/18 09:08 61 105/54 05/11/18 07:00 98.5 18 91 Room Air 98.5 05/10/18 10:40 3.0 Weight Weight [ ] I.O. Intake and Output Intake and Output 05/11/18 07:00 Intake Total 250 ml Output Total 350 ml Balance -100 ml Intake Oral 200 ml IV Total 50 ml Output Urine Total 350 ml # Voids 2 Labs Labs Laboratory Tests Test 05/10/18 14:00 05/10/18 14:08 05/10/18 16:43 05/10/18 20:26 Hepatitis B Surface Antigen Nonreactive (Nonreactive) Hepatitis B Surface Antibody Nonreactive Glucose (Fingerstick) 146 mg/dL (70-99) 196 mg/dL (70-99) 197 mg/dL (70-99) Test 05/11/18 03:35 05/11/18 07:43 White Blood Count 10.9 x10^3/uL (4.0-11.0) Red Blood Count 3.65 x10^6/uL (4.30-5.70) Hemoglobin 11.6 g/dL (13.0-17.5) Hematocrit 34.9 % (39.0-53.0) Mean Corpuscular Volume 96 fL (79-100) Mean Corpuscular Hemoglobin 32 pg (25-35) Mean Corpuscular Hemoglobin Concent 33 g/dL (31-37) Red Cell Distribution Width 13.3 % (11.5-14.5) Platelet Count 198 x10^3/uL (140-400) Neutrophils (%) (Auto) 67 % (31-73) Lymphocytes (%) (Auto) 17 % (24-48) Monocytes (%) (Auto) 11 % (0-9) Eosinophils (%) (Auto) 5 % (0-3) Basophils (%) (Auto) 0 % (0-3) Neutrophils # (Auto) 7.3 x10^3uL (1.8-7.7) Lymphocytes # (Auto) 1.8 x10^3/uL (1.0-4.8) Monocytes # (Auto) 1.2 x10^3/uL (0.0-1.1) Eosinophils # (Auto) 0.5 x10^3/uL (0.0-0.7) Basophils # (Auto) 0.0 x10^3/uL (0.0-0.2) Erythrocyte Sedimentation Rate 76 (0-15) Sodium Level 135 mmol/L (136-145) Potassium Level 4.3 mmol/L (3.5-5.1) Chloride Level 96 mmol/L (98-107) Carbon Dioxide Level 29 mmol/L (21-32) Anion Gap 10 (6-14) Blood Urea Nitrogen 45 mg/dL (8-26) Creatinine 3.1 mg/dL (0.7-1.3) Estimated GFR (Cockcroft-Gault) 19.7 BUN/Creatinine Ratio 15 (6-20) Glucose Level 129 mg/dL (70-99) Calcium Level 8.5 mg/dL (8.5-10.1) Total Bilirubin 0.5 mg/dL (0.2-1.0) Aspartate Amino Transf (AST/SGOT) 14 U/L (15-37) Alanine Aminotransferase (ALT/SGPT) 10 U/L (16-63) Alkaline Phosphatase 87 U/L (46-116) Total Protein 6.6 g/dL (6.4-8.2) Albumin 2.4 g/dL (3.4-5.0) Albumin/Globulin Ratio 0.6 (1.0-1.7) Glucose (Fingerstick) 121 mg/dL (70-99) Review of Systems Constitutional: yes: alert, oriented Ears/Nose/Throat: Yes: no symptom reported Eyes: Yes: no symptom reported Pulmonary: Yes no symptom reported Cardiovascular: Yes no symptom reported Gastrointestional: Yes: diarrhea Genitourinary: Yes: no symptom reported Musculoskeletal: Yes: no symptom reported Skin: Yes no symptom reported Psychiatric/Neurological: Yes: no symptom reported Endocrine: Yes: no symptom reported Physical Exam General Appearance: no apparent distress Skin: warm Respiratory: decreased breath sounds Heart: S1S2 Abdomen: soft, bowel sounds present Genitourinary: bladder flat Extremities: pulses present Neurology: alert Musculoskeletal: Osteoarthritis Assessment Assessment IMP [id number] M AND W THIS WK NON COMPLIANCE DIARRHEA-BETTER ANEMIA DM II HTN RIGHT HEEL WOUND PLAN WOUND CARE ANTIBIOTICS HD TOMORROW LOUIE CHOPRA MD May 11, 2018 09:43
--- NOTE | 2018-05-11 10:00 | PDOC ---
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 Change from biphasic to monophasic at the right superficial femoral artery to popliteal artery suggests a superficial femoral artery stenosis Decreased velocity in the distal popliteal suggests popliteal stenosis. No flow in the dorsalis pedis on the right suggests occlusion the right anterior tibial. Diabetes type 2 with HX hypoglycemic episodes- Generalized weakness- ESRD on dialysis Saturday, noncompliance x 1 week with dialysis Anemia of ESRD Hypertension controlled Indwelling right HD catheter Right calcaneal wound s/p debridement, excision subcutaneous tissue and skin . Right big toe ulcer - increased redness 2 small ulcers OF left lateral foot. PAD ESRD/HD via AVF History of Present Illness History of Present Illness MRI foot, cannot have contrast due to ESRD ID consult wound care consult nephrology consult VASCULAR SURGERY CONSULT Vitals Vitals Vital Signs Date Time Temp Pulse Resp B/P (MAP) Pulse Ox O2 Delivery O2 Flow Rate FiO2 05/11/18 09:08 61 105/54 05/11/18 07:00 98.5 18 91 Room Air 98.5 05/10/18 10:40 3.0 Physical Exam General: Alert, Oriented X3, Cooperative, No acute distress Heart: Regular rate, Normal S1, Normal S2 Lungs: Clear, Other Abdomen: Normal bowel sounds, Soft, No tenderness Extremities: No cyanosis Skin: No breakdown Labs LABS HISTORY: Bilateral foot ulcers Duplex ultrasound was used to evaluate the arteries of both lower extremities. Color flow imaging and Doppler were utilized for evaluation. There is a mild atherosclerotic change at the right common femoral artery. Flow at the right common femoral artery is triphasic with a velocity 146 cm/s. There is a biphasic flow pattern in the profunda femoral artery with velocity 1 35 cm/s. Is a biphasic flow pattern in the right femoral artery with velocity 163 cm/s proximally and 130 cm/s distally. There is a monophasic flow pattern with a velocity of 99 cm/s in the popliteal artery. Velocity decreases to 44 cm in the distal right popliteal artery. There is monophasic flow in the mid right anterior tibial with velocity of 63 cm/s. There is a monophasic flow with a velocity of 43 cm/s at the proximal posterior tibial. Velocity is monophasic with a velocity of 40 cm/s the distal posterior tibial on the right. Flow in the dorsalis pedis is not identified at the right foot. There is biphasic flow at the left common femoral artery with velocity of 75 cm/s. There is biphasic flow in the deep femoral with velocity of 61 cm/s on the left. There is biphasic flow with velocity of 67 cm per sec in the proximal superficial femoral artery on the left. There is a focal stenosis with increased velocity up to 143 cm/s in the left mid superficial femoral artery. Biphasic flow is noted in the distal left superficial femoral artery with velocity of 106 cm/s. Velocity of 71 cm/s is noted in the mid popliteal artery. There is atherosclerotic change on the images. There is stenosis of the popliteal with velocity increasing 110 cm/s the distal popliteal artery on the left. There is monophasic flow velocity of 40 cm/s in the mid anterior tibial. Flow was not identified in the left posterior tibial. There is a monophasic flow in the left peroneal artery. Flow is not identified in the dorsalis pedis or posterior tibial distally. IMPRESSION: 1. A biphasic pattern at the left common femoral suggests left aortoiliac disease. 2. There is evidence of stenosis of the superficial femoral artery on the left without occlusion. 3. There is evidence of stenosis in the left popliteal artery. 4. 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 5. Change from biphasic to monophasic at the right superficial femoral artery to popliteal artery suggests a superficial femoral artery stenosis 6. Decreased velocity in the distal popliteal suggests popliteal stenosis. 7. No flow in the dorsalis pedis on the right suggests occlusion the right anterior tibial. 8. Low velocity monophasic flow in the posterior tibial and peroneal on the right suggesting some element of the trifurcation stenosis. Electronically signed by: Agustin Jo MD (05/11/2018 8:33 AM) [facility] Laboratory Tests Test 05/10/18 14:00 05/10/18 14:08 05/10/18 16:43 05/10/18 20:26 Hepatitis B Surface Antigen Nonreactive (Nonreactive) Hepatitis B Surface Antibody Nonreactive Glucose (Fingerstick) 146 mg/dL (70-99) 196 mg/dL (70-99) 197 mg/dL (70-99) Test 05/11/18 03:35 05/11/18 07:43 White Blood Count 10.9 x10^3/uL (4.0-11.0) Red Blood Count 3.65 x10^6/uL (4.30-5.70) Hemoglobin 11.6 g/dL (13.0-17.5) Hematocrit 34.9 % (39.0-53.0) Mean Corpuscular Volume 96 fL (79-100) Mean Corpuscular Hemoglobin 32 pg (25-35) Mean Corpuscular Hemoglobin Concent 33 g/dL (31-37) Red Cell Distribution Width 13.3 % (11.5-14.5) Platelet Count 198 x10^3/uL (140-400) Neutrophils (%) (Auto) 67 % (31-73) Lymphocytes (%) (Auto) 17 % (24-48) Monocytes (%) (Auto) 11 % (0-9) Eosinophils (%) (Auto) 5 % (0-3) Basophils (%) (Auto) 0 % (0-3) Neutrophils # (Auto) 7.3 x10^3uL (1.8-7.7) Lymphocytes # (Auto) 1.8 x10^3/uL (1.0-4.8) Monocytes # (Auto) 1.2 x10^3/uL (0.0-1.1) Eosinophils # (Auto) 0.5 x10^3/uL (0.0-0.7) Basophils # (Auto) 0.0 x10^3/uL (0.0-0.2) Erythrocyte Sedimentation Rate 76 (0-15) Sodium Level 135 mmol/L (136-145) Potassium Level 4.3 mmol/L (3.5-5.1) Chloride Level 96 mmol/L (98-107) Carbon Dioxide Level 29 mmol/L (21-32) Anion Gap 10 (6-14) Blood Urea Nitrogen 45 mg/dL (8-26) Creatinine 3.1 mg/dL (0.7-1.3) Estimated GFR (Cockcroft-Gault) 19.7 BUN/Creatinine Ratio 15 (6-20) Glucose Level 129 mg/dL (70-99) Calcium Level 8.5 mg/dL (8.5-10.1) Total Bilirubin 0.5 mg/dL (0.2-1.0) Aspartate Amino Transf (AST/SGOT) 14 U/L (15-37) Alanine Aminotransferase (ALT/SGPT) 10 U/L (16-63) Alkaline Phosphatase 87 U/L (46-116) Total Protein 6.6 g/dL (6.4-8.2) Albumin 2.4 g/dL (3.4-5.0) Albumin/Globulin Ratio 0.6 (1.0-1.7) Glucose (Fingerstick) 121 mg/dL (70-99) Assessment and Plan Assessmemt and Plan Problems Medical Problems: (1) Open wound of right foot Status: Acute (2) Osteomyelitis Status: Acute Comment Review of Relevant I have reviewed the following items sukumar (where applicable) has been applied. Labs Laboratory Tests Test 05/09/18 13:57 05/09/18 17:45 05/09/18 20:38 05/10/18 05:00 White Blood Count 9.3 x10^3/uL (4.0-11.0) 9.3 x10^3/uL (4.0-11.0) Red Blood Count 3.93 x10^6/uL (4.30-5.70) 3.49 x10^6/uL (4.30-5.70) Hemoglobin 12.5 g/dL (13.0-17.5) 11.2 g/dL (13.0-17.5) Hematocrit 37.6 % (39.0-53.0) 33.6 % (39.0-53.0) Mean Corpuscular Volume 96 fL (79-100) 96 fL (79-100) Mean Corpuscular Hemoglobin 32 pg (25-35) 32 pg (25-35) Mean Corpuscular Hemoglobin Concent 33 g/dL (31-37) 33 g/dL (31-37) Red Cell Distribution Width 13.2 % (11.5-14.5) 13.1 % (11.5-14.5) Platelet Count 210 x10^3/uL (140-400) 190 x10^3/uL (140-400) Neutrophils (%) (Auto) 63 % (31-73) 59 % (31-73) Lymphocytes (%) (Auto) 20 % (24-48) 23 % (24-48) Monocytes (%) (Auto) 11 % (0-9) 12 % (0-9) Eosinophils (%) (Auto) 5 % (0-3) 7 % (0-3) Basophils (%) (Auto) 1 % (0-3) 1 % (0-3) Neutrophils # (Auto) 5.9 x10^3uL (1.8-7.7) 5.4 x10^3uL (1.8-7.7) Lymphocytes # (Auto) 1.8 x10^3/uL (1.0-4.8) 2.1 x10^3/uL (1.0-4.8) Monocytes # (Auto) 1.0 x10^3/uL (0.0-1.1) 1.1 x10^3/uL (0.0-1.1) Eosinophils # (Auto) 0.5 x10^3/uL (0.0-0.7) 0.6 x10^3/uL (0.0-0.7) Basophils # (Auto) 0.1 x10^3/uL (0.0-0.2) 0.0 x10^3/uL (0.0-0.2) Sodium Level 130 mmol/L (136-145) 131 mmol/L (136-145) Potassium Level 5.1 mmol/L (3.5-5.1) 4.8 mmol/L (3.5-5.1) Chloride Level 94 mmol/L (98-107) 95 mmol/L (98-107) Carbon Dioxide Level 26 mmol/L (21-32) 24 mmol/L (21-32) Anion Gap 10 (6-14) 12 (6-14) Blood Urea Nitrogen 73 mg/dL (8-26) 78 mg/dL (8-26) Creatinine 4.0 mg/dL (0.7-1.3) 4.1 mg/dL (0.7-1.3) Estimated GFR (Cockcroft-Gault) 14.7 14.3 Glucose Level 282 mg/dL (70-99) 238 mg/dL (70-99) Lactic Acid Level 1.5 mmol/L (0.4-2.0) Calcium Level 9.2 mg/dL (8.5-10.1) 8.5 mg/dL (8.5-10.1) Total Bilirubin 0.5 mg/dL (0.2-1.0) Direct Bilirubin 0.2 mg/dL (0.0-0.2) Aspartate Amino Transf (AST/SGOT) 12 U/L (15-37) Alanine Aminotransferase (ALT/SGPT) 11 U/L (16-63) Alkaline Phosphatase 87 U/L (46-116) Troponin I Quantitative 0.032 ng/mL (0.000-0.055) EJ-Oji-X-Type Natriuretic Peptide 9818 pg/mL (0-449) Total Protein 7.4 g/dL (6.4-8.2) Albumin 2.8 g/dL (3.4-5.0) Lipase 77 U/L (73-393) Glucose (Fingerstick) 197 mg/dL (70-99) 240 mg/dL (70-99) Test 05/10/18 08:04 05/10/18 14:00 05/10/18 14:08 05/10/18 16:43 Glucose (Fingerstick) 202 mg/dL (70-99) 146 mg/dL (70-99) 196 mg/dL (70-99) Hepatitis B Surface Antigen Nonreactive (Nonreactive) Hepatitis B Surface Antibody Nonreactive Test 05/10/18 20:26 05/11/18 03:35 05/11/18 07:43 Glucose (Fingerstick) 197 mg/dL (70-99) 121 mg/dL (70-99) White Blood Count 10.9 x10^3/uL (4.0-11.0) Red Blood Count 3.65 x10^6/uL (4.30-5.70) Hemoglobin 11.6 g/dL (13.0-17.5) Hematocrit 34.9 % (39.0-53.0) Mean Corpuscular Volume 96 fL (79-100) Mean Corpuscular Hemoglobin 32 pg (25-35) Mean Corpuscular Hemoglobin Concent 33 g/dL (31-37) Red Cell Distribution Width 13.3 % (11.5-14.5) Platelet Count 198 x10^3/uL (140-400) Neutrophils (%) (Auto) 67 % (31-73) Lymphocytes (%) (Auto) 17 % (24-48) Monocytes (%) (Auto) 11 % (0-9) Eosinophils (%) (Auto) 5 % (0-3) Basophils (%) (Auto) 0 % (0-3) Neutrophils # (Auto) 7.3 x10^3uL (1.8-7.7) Lymphocytes # (Auto) 1.8 x10^3/uL (1.0-4.8) Monocytes # (Auto) 1.2 x10^3/uL (0.0-1.1) Eosinophils # (Auto) 0.5 x10^3/uL (0.0-0.7) Basophils # (Auto) 0.0 x10^3/uL (0.0-0.2) Erythrocyte Sedimentation Rate 76 (0-15) Sodium Level 135 mmol/L (136-145) Potassium Level 4.3 mmol/L (3.5-5.1) Chloride Level 96 mmol/L (98-107) Carbon Dioxide Level 29 mmol/L (21-32) Anion Gap 10 (6-14) Blood Urea Nitrogen 45 mg/dL (8-26) Creatinine 3.1 mg/dL (0.7-1.3) Estimated GFR (Cockcroft-Gault) 19.7 BUN/Creatinine Ratio 15 (6-20) Glucose Level 129 mg/dL (70-99) Calcium Level 8.5 mg/dL (8.5-10.1) Total Bilirubin 0.5 mg/dL (0.2-1.0) Aspartate Amino Transf (AST/SGOT) 14 U/L (15-37) Alanine Aminotransferase (ALT/SGPT) 10 U/L (16-63) Alkaline Phosphatase 87 U/L (46-116) Total Protein 6.6 g/dL (6.4-8.2) Albumin 2.4 g/dL (3.4-5.0) Albumin/Globulin Ratio 0.6 (1.0-1.7) Laboratory Tests Test 05/10/18 14:00 05/10/18 14:08 05/10/18 16:43 05/10/18 20:26 Hepatitis B Surface Antigen Nonreactive (Nonreactive) Hepatitis B Surface Antibody Nonreactive Glucose (Fingerstick) 146 mg/dL (70-99) 196 mg/dL (70-99) 197 mg/dL (70-99) Test 05/11/18 03:35 05/11/18 07:43 White Blood Count 10.9 x10^3/uL (4.0-11.0) Red Blood Count 3.65 x10^6/uL (4.30-5.70) Hemoglobin 11.6 g/dL (13.0-17.5) Hematocrit 34.9 % (39.0-53.0) Mean Corpuscular Volume 96 fL (79-100) Mean Corpuscular Hemoglobin 32 pg (25-35) Mean Corpuscular Hemoglobin Concent 33 g/dL (31-37) Red Cell Distribution Width 13.3 % (11.5-14.5) Platelet Count 198 x10^3/uL (140-400) Neutrophils (%) (Auto) 67 % (31-73) Lymphocytes (%) (Auto) 17 % (24-48) Monocytes (%) (Auto) 11 % (0-9) Eosinophils (%) (Auto) 5 % (0-3) Basophils (%) (Auto) 0 % (0-3) Neutrophils # (Auto) 7.3 x10^3uL (1.8-7.7) Lymphocytes # (Auto) 1.8 x10^3/uL (1.0-4.8) Monocytes # (Auto) 1.2 x10^3/uL (0.0-1.1) Eosinophils # (Auto) 0.5 x10^3/uL (0.0-0.7) Basophils # (Auto) 0.0 x10^3/uL (0.0-0.2) Erythrocyte Sedimentation Rate 76 (0-15) Sodium Level 135 mmol/L (136-145) Potassium Level 4.3 mmol/L (3.5-5.1) Chloride Level 96 mmol/L (98-107) Carbon Dioxide Level 29 mmol/L (21-32) Anion Gap 10 (6-14) Blood Urea Nitrogen 45 mg/dL (8-26) Creatinine 3.1 mg/dL (0.7-1.3) Estimated GFR (Cockcroft-Gault) 19.7 BUN/Creatinine Ratio 15 (6-20) Glucose Level 129 mg/dL (70-99) Calcium Level 8.5 mg/dL (8.5-10.1) Total Bilirubin 0.5 mg/dL (0.2-1.0) Aspartate Amino Transf (AST/SGOT) 14 U/L (15-37) Alanine Aminotransferase (ALT/SGPT) 10 U/L (16-63) Alkaline Phosphatase 87 U/L (46-116) Total Protein 6.6 g/dL (6.4-8.2) Albumin 2.4 g/dL (3.4-5.0) Albumin/Globulin Ratio 0.6 (1.0-1.7) Glucose (Fingerstick) 121 mg/dL (70-99) Medications Current Medications Vancomycin HCl (Vanco Per Pharmacy) 1 each PRN DAILY PRN MC SEE COMMENTS Last administered on 05/10/18at 11:37; Start 05/09/18 at 14:15 Piperacillin Sod/ Tazobactam Sod (Zosyn Per Pharmacy) 1 each PRN DAILY PRN MC SEE COMMENTS; Start 05/09/18 at 14:15 Piperacillin Sod/ Tazobactam Sod 2.25 gm/Sodium Chloride 50 ml @ 100 mls/hr 1X ONCE IV Last administered on 05/09/18at 14:52; Start 05/09/18 at 14:15; Stop 05/09/18 at 14:44; Status DC Vancomycin HCl 2 gm/Sodium Chloride 500 ml @ 250 mls/hr 1X ONCE IV Last administered on 05/09/18at 15:28; Start 05/09/18 at 15:00; Stop 05/09/18 at 16:59 ; Status DC Ondansetron HCl (Zofran) 4 mg PRN Q8HRS PRN IV NAUSEA/VOMITING; Start 05/09/18 at 15:15; Stop 05/10/18 at 15:14; Status DC Morphine Sulfate (Morphine Sulfate) 2 mg PRN Q2HR PRN IV PAIN Last administered on 05/10/18at 06:43; Start 05/09/18 at 15:15; Stop 05/10/18 at 15:14 ; Status DC Piperacillin Sod/ Tazobactam Sod 2.25 gm/Sodium Chloride 50 ml @ 100 mls/hr Q8HRS IV Last administered on 05/11/18at 06:16; Start 05/09/18 at 22:00 Vancomycin HCl (Vancomycin Random Level) 1 each 1X ONCE MC ; Start 05/12/18 at 06:00; Stop 05/12/18 at 06:01 Lactobacillus Rhamnosus (Culturelle) 1 cap BID PO Last administered on 09:07; Start 05/09/18 at 21:00 Aspirin (Ecotrin) 81 mg DAILYWBKFT PO Last administered on 05/11/18 09:06; Start 05/10/18 at 09:00 Vitamin D (Vitamin D3) 1,000 unit DAILY PO Last administered on 05/11/18 09:06 ; Start 05/10/18 at 09:00 Clopidogrel Bisulfate (Plavix) 75 mg DAILY PO Last administered on 05/11/18 09 :07; Start 05/10/18 at 09:00 Acetaminophen/ Hydrocodone Bitart (Lortab 5/325) 1 tab PRN Q4HRS PRN PO pain MILD TO MOD Last administered on 05/10/18 09:40; Start 05/10/18 at 08:45 Insulin Glargine (Lantus) 20 units QHS SQ Last administered on 05/10/18 21:40 ; Start 05/10/18 at 21:00 Metoprolol Tartrate (Lopressor) 25 mg BID PO Last administered on 05/11/18 09: 08; Start 05/10/18 at 09:00 Sodium Bicarbonate (Sodium Bicarbonate) 650 mg BID PO Last administered on 05/11 09:06; Start 05/10/18 at 09:00 Tamsulosin HCl (Flomax) 0.4 mg DAILY PO Last administered on 05/11/18at 09:08; Start 05/10/18 at 09:00 Trazodone HCl (Desyrel) 25 mg PRN QHS PRN PO INSOMNIA; Start 05/10/18 at 08:45 Trazodone HCl (Desyrel) 150 mg QHS PO Last administered on 05/10/18 21:33; Start 05/10/18 at 21:00 Bumetanide (Bumex) 2 mg DAILY PO ; Start 05/10/18 at 09:30 Insulin Human Lispro (HumaLOG) 10 units TIDWMEALS SQ Last administered on 17:19; Start 05/10/18 at 12:00 Metolazone (Zaroxolyn) 5 mg DAILY PO ; Start 05/10/18 at 09:30 Simvastatin (Zocor) 80 mg QHS PO Last administered on 05/10/18at 21:35; Start at 21:00 Sertraline HCl (Zoloft) 100 mg DAILY PO Last administered on 05/11/18at 09:07; Start 05/10/18 at 09:30 Sodium Chloride 1,000 ml @ 1,000 mls/hr Q1H PRN IV hypotension; Start 05/10/18 at 10:59; Stop 05/10/18 at 16:58; Status DC Sodium Chloride 1,000 ml @ 400 mls/hr Q2H30M PRN IV PATENCY; Start 05/10/18 at 10:59; Stop 05/10/18 at 22:58; Status DC Info (PHARMACY MONITORING -- do not chart) 1 each PRN DAILY PRN MC SEE COMMENTS ; Start 05/10/18 at 11:00 Info (PHARMACY MONITORING -- do not chart) 1 each PRN DAILY PRN MC SEE COMMENTS ; Start 05/10/18 at 11:00; Status UNV Active Scripts Active Lantus Solostar (Insulin Glargine,Hum.rec.anlog) 100 Unit/1 Ml Insuln.pen 20 Units SQ QHS 30 Days Vancomycin Hcl 1 Gm Vial 1 Each MWF WITH DIALYSIS PRN 14 Days [place] 5-325 Tablet (Acetaminophen/Hydrocodone Bitart) 1 Each Tablet 1-2 Tab PO Q4-6HRS 6 Days Aspirin Ec (Aspirin) 81 Mg Tablet.dr 81 Mg PO DAILYWBKFT 30 Days Flomax (Tamsulosin Hcl) 0.4 Mg Cap.er.24h 0.4 Mg PO DAILY Reported Trazodone Hcl 50 Mg Tablet 0.5 Tab PO PRN 1X Trazodone Hcl 50 Mg Tablet 3 Tab PO QHS Lisinopril 20 Mg Tablet 1 Tab PO DAILY Crestor (Rosuvastatin Calcium) 20 Mg Tablet 0.5 Tab PO DAILY Plavix (Clopidogrel Bisulfate) 75 Mg Tablet 75 Mg PO DAILY Sodium Bicarbonate 650 Mg Tablet 650 Mg PO BID Sertraline Hcl 100 Mg Tablet 100 Mg PO DAILY Novolog (Insulin Aspart) 100 Unit/1 Ml Cartridge 10 Unit SQ TIDAC Metoprolol Tartrate 25 Mg Tablet 1 Tab PO BID Metolazone 5 Mg Tablet 5 Mg PO DAILY Vitamin D3 (Cholecalciferol (Vitamin D3)) 1,000 Unit Tablet 1 Tab PO DAILY Bumetanide 2 Mg Tablet 1 Tab PO DAILY Vitals/I & O Vital Sign - Last 24 Hours 05/10/18 05/10/18 05/10/18 05/10/18 10:40 11:00 15:00 16:15 Temp 98.4 98.6 97.7 98.4 98.6 97.7 Pulse 74 65 73 Resp 18 18 18 18 B/P (MAP) 124/52 (76) 120/50 (73) 106/51 (69) Pulse Ox 93 92 92 O2 Delivery Room Air Room Air Room Air O2 Flow Rate 3.0 05/10/18 05/10/18 05/10/18 05/10/18 19:00 19:23 21:36 23:08 Temp 98.6 100.0 98.6 100.0 Pulse 70 70 69 Resp 20 20 B/P (MAP) 116/39 (64) 116/39 109/51 (70) Pulse Ox 93 95 O2 Delivery Room Air Room Air Room Air 05/11/18 05/11/18 05/11/18 03:08 07:00 09:08 Temp 100.0 98.5 100.0 98.5 Pulse 63 61 61 Resp 20 18 B/P (MAP) 91/46 (61) 105/54 (71) 105/54 Pulse Ox 91 91 O2 Delivery Room Air Room Air Intake and Output 05/10/18 05/10/18 05/11/18 14:59 22:59 06:59 Intake Total 200 ml 50 ml Output Total 150 ml 200 ml 0 ml Balance 50 ml -150 ml 0 ml RYAN ROY MD May 11, 2018 10:00
--- NOTE | 2018-05-11 10:20 | NUR ---
Patient with asymptomatic three beat V-tach. reported to Dr. Neff.
[2018-05-11 11:00] VITALS: BP 101/50
--- NOTE | 2018-05-11 11:05 | PDOC ---
Infectious Disease Note Subjective Subjective Having a better day today, pain better controlled. Now he says hoping to save his foot if possible. Low-grade fevers Tmax 100.0 3-beat run V-tach earlier Denies chills/aches/N/V/D/SOA ROS ROS per HPI Vital Sign Vital Signs Vital Signs Date Time Temp Pulse Resp B/P (MAP) Pulse Ox O2 Delivery O2 Flow Rate FiO2 05/11/18 09:08 61 105/54 05/11/18 07:00 98.5 18 91 Room Air 98.5 05/10/18 10:40 3.0 Physical Exam PHYSICAL EXAM GENERAL: Resting quietly HEENT: Pupils are equally round. Normal conjunctivae. Oral cavity: Pharynx pink and moist. NECK: Supple. LUNGS: Clear to auscultation. HEART: S1 and S2. Pacemaker. ABDOMEN: Obese, soft and nontender with bowel sounds present. EXTREMITIES: No gross edema or cyanosis. He has a small ulcer of right great toe with nonviable tissue covering the base and without surrounding redness. On the right heel is a large wound that is very close to the bone, also with nonviable tissue and some black eschar about the edge. He also has 2 small ulcers left lateral foot. Dorsalis pedis pulses difficult to palpate. Rooke boots. RUE-AV fistula unremarkable. SKIN: Warm without generalized rash. coccyx ulcer (pic) NEUROLOGIC: Arouse to name, responds appropriately. PIV ok Labs Lab Laboratory Tests Test 05/10/18 14:00 05/10/18 14:08 05/10/18 16:43 05/10/18 20:26 Hepatitis B Surface Antigen Nonreactive (Nonreactive) Hepatitis B Surface Antibody Nonreactive Glucose (Fingerstick) 146 mg/dL (70-99) 196 mg/dL (70-99) 197 mg/dL (70-99) Test 05/11/18 03:35 05/11/18 07:43 White Blood Count 10.9 x10^3/uL (4.0-11.0) Red Blood Count 3.65 x10^6/uL (4.30-5.70) Hemoglobin 11.6 g/dL (13.0-17.5) Hematocrit 34.9 % (39.0-53.0) Mean Corpuscular Volume 96 fL (79-100) Mean Corpuscular Hemoglobin 32 pg (25-35) Mean Corpuscular Hemoglobin Concent 33 g/dL (31-37) Red Cell Distribution Width 13.3 % (11.5-14.5) Platelet Count 198 x10^3/uL (140-400) Neutrophils (%) (Auto) 67 % (31-73) Lymphocytes (%) (Auto) 17 % (24-48) Monocytes (%) (Auto) 11 % (0-9) Eosinophils (%) (Auto) 5 % (0-3) Basophils (%) (Auto) 0 % (0-3) Neutrophils # (Auto) 7.3 x10^3uL (1.8-7.7) Lymphocytes # (Auto) 1.8 x10^3/uL (1.0-4.8) Monocytes # (Auto) 1.2 x10^3/uL (0.0-1.1) Eosinophils # (Auto) 0.5 x10^3/uL (0.0-0.7) Basophils # (Auto) 0.0 x10^3/uL (0.0-0.2) Erythrocyte Sedimentation Rate 76 (0-15) Sodium Level 135 mmol/L (136-145) Potassium Level 4.3 mmol/L (3.5-5.1) Chloride Level 96 mmol/L (98-107) Carbon Dioxide Level 29 mmol/L (21-32) Anion Gap 10 (6-14) Blood Urea Nitrogen 45 mg/dL (8-26) Creatinine 3.1 mg/dL (0.7-1.3) Estimated GFR (Cockcroft-Gault) 19.7 BUN/Creatinine Ratio 15 (6-20) Glucose Level 129 mg/dL (70-99) Calcium Level 8.5 mg/dL (8.5-10.1) Total Bilirubin 0.5 mg/dL (0.2-1.0) Aspartate Amino Transf (AST/SGOT) 14 U/L (15-37) Alanine Aminotransferase (ALT/SGPT) 10 U/L (16-63) Alkaline Phosphatase 87 U/L (46-116) Total Protein 6.6 g/dL (6.4-8.2) Albumin 2.4 g/dL (3.4-5.0) Albumin/Globulin Ratio 0.6 (1.0-1.7) Glucose (Fingerstick) 121 mg/dL (70-99) IMPRESSION: 1. A biphasic pattern at the left common femoral suggests left aortoiliac disease. 2. There is evidence of stenosis of the superficial femoral artery on the left without occlusion. 3. There is evidence of stenosis in the left popliteal artery. 4. 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 5. Change from biphasic to monophasic at the right superficial femoral artery to popliteal artery suggests a superficial femoral artery stenosis 6. Decreased velocity in the distal popliteal suggests popliteal stenosis. 7. No flow in the dorsalis pedis on the right suggests occlusion the right anterior tibial. 8. Low velocity monophasic flow in the posterior tibial and peroneal on the right suggesting some element of the trifurcation stenosis. Objective Assessment Fever Large nonhealing calcaneal wound with suspected osteo on x-ray/exam. ESR 76 -h/o debridement subcutaneous tissue and skin, 02/2018. no cultures and CT neg -d/c home on vanc and Augmentin x 3 weeks on 03/27/18. Left foot ulcers Coccyx ulcer PVD DM II CKD/HD Pacemaker h/o MRSA h/o Klebsiella (R amp) Plan Plan of Care Patient says he is having a better day to day with less pain, hoping to save his foot if possible Continue vanc and Zosyn. BC Monitor labs/temp. Local wound care Awaiting vascular follow-up Patient seen and examined. Chart reviewed in detail. Case discussed with [employer]. Agree with above plan. NTA BARAKAT APRN May 11, 2018 11:05 ELISE MANE MD May 11, 2018 19:59
--- NOTE | 2018-05-11 12:14 | NUR ---
Patient refusing lunch and did not want RN to order him something else, states to bring him food from home. Insulin held r/t not eating and blood sugar 139.
[2018-05-11] MEDS: VANCOMYCIN PER PHARMACY MC PRN ×2 (12:44→14:26)
[2018-05-11] MEDS: HYDROcodone/APAP 5/325MG 1 TAB TABLET PO PRN ×2 (14:44→19:33)
[2018-05-11 15:00] VITALS: BP 120/33
[2018-05-11] MEDS ORDERED: VANCOMYCIN 500 MG in IV NORMAL SALINE 100ML 100 ML IV ONE (15:00)
--- NOTE | 2018-05-11 16:58 | PDOC ---
SURGICAL PROGRESS NOTE Subjective He is more comfortable today. He reports some right shoulder pain (chronic). No foot pain today. Vital Signs Vital Signs Date Time Temp Pulse Resp B/P (MAP) Pulse Ox O2 Delivery O2 Flow Rate FiO2 05/11/18 15:47 18 Room Air 05/11/18 15:00 98.7 61 120/33 (62) 94 98.7 05/10/18 10:40 3.0 General: Alert, No acute distress Lungs: Normal air movement Heart: Regular rate Abdomen: Soft, No tenderness Extremities: Other (Bilateral foot dressings in place. Refer to yesterday dictation for descripton of ulcers.) I have reviewed the following Arterial US showed reasonable flow through the popliteal arteries with severe bilateral tibial artery disease. There is single vessel runoff via the left peroneal artery. 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 Problem List Problems Medical Problems: (1) Open wound of right foot Status: Acute (2) Osteomyelitis Status: Acute Assessment/Plan Severe PVD with bilateral foot ulcers (right > left) Right calcaneous osteomyelitis ESRD DM I do not feel that the right foot is salvageable. Would recommend a right below knee amputation. I discussed the risks and benefits with him. I also discussed time for healing (6-12 weeks) prior to fitting with a prosthesis. Would continue local wound care to the left foot. Very poor prognosis for the left foot as well, but it is not as bad as right. He is going to speak with his . Would be happy to proceed with right BKA if he is agreeable. EMANUEL LONG MD May 11, 2018 16:58
[2018-05-11 19:00] VITALS: BP 110/38
[2018-05-11] MEDS: SIMVASTATIN 40 MG TABLET. PO SCH (21:24)
[2018-05-11] MEDS: traZODone 50 MG TABLET. PO SCH (21:25)
[2018-05-11] MEDS: INSULIN GLARGINE 300 UNITS/3 ML INSULN.PEN. SQ SCH (21:27)
[2018-05-11 23:06] VITALS: BP 104/34
[2018-05-12] MEDS: HYDROcodone/APAP 5/325MG 1 TAB TABLET PO PRN ×3 (02:32→20:10)
[2018-05-12 03:13] VITALS: BP 108/38
[2018-05-12] MEDS ORDERED: VANCOMYCIN RANDOM LEVEL. MC ONE (06:00)
[2018-05-12] MEDS: PIPERACILLIN/TAZOBACTAM 2.25 GM in IV NORMAL SALINE 50ML 50 ML IV SCH ×3 (06:10→21:50)
[2018-05-12 06:35] LABS: BASO # 0.1 x10^3/uL (0.0-0.2); BASO % 1 % (0-3); EOS # 0.7 x10^3/uL (0.0-0.7); EOS % 5 % (0-3); HEMATOCRIT 33.7 % (39.0-53.0); HEMOGLOBIN 11.2 g/dL (13.0-17.5); LYMPH # 2.2 x10^3/uL (1.0-4.8); LYMPH % 15 % (24-48); MEAN CORPUSCULAR HEMOGLOBIN 32 pg (25-35); MEAN CORPUSCULAR HGB CONC 33 g/dL (31-37); MEAN CORPUSCULAR VOLUME 95 fL (79-100); MONO # 1.1 x10^3/uL (0.0-1.1); MONO % 8 % (0-9); NEUT # 10.1 x10^3uL (1.8-7.7); NEUT % 72 % (31-73); PLATELET COUNT 202 x10^3/uL (140-400); RED BLOOD COUNT 3.55 x10^6/uL (4.30-5.70); RED CELL DISTRIBUTION WIDTH 13.3 % (11.5-14.5); WHITE BLOOD COUNT 14.1 x10^3/uL (4.0-11.0)
[2018-05-12 06:57] LABS: CALCIUM 8.6 mg/dL (8.5-10.1); CREATININE 3.5 mg/dL (0.7-1.3); GFR 17.1; POTASSIUM 4.2 mmol/L (3.5-5.1)
[2018-05-12 07:00] VITALS: BP 96/36
[2018-05-12 07:07] LABS: VANC TR 15.6 mcg/mL (10.0-20.0)
[2018-05-12] MEDS: CLOPIDOGREL BISULFATE 75 MG TABLET PO SCH (09:22)
[2018-05-12] MEDS: SODIUM BICARBONATE 650 MG TABLET. PO SCH ×2 (09:22→21:48)
[2018-05-12] MEDS: LACTOBACILLUS RHAMNOSUS GG 1 CAPSULE. PO SCH ×2 (09:22→21:48)
[2018-05-12] MEDS: ASPIRIN ENTERIC COATED 81 MG TABLET.DR. PO SCH (09:22)
[2018-05-12] MEDS: TAMSULOSIN 0.4 MG CAP.ER.24H. PO SCH (09:23)
[2018-05-12] MEDS: CHOLECALCIFEROL (VITAMIN D3) 1,000 UNIT TABLET PO SCH (09:23)
[2018-05-12] MEDS: SERTRALINE 50 MG TABLET. PO SCH (09:23)
[2018-05-12] MEDS: METOPROLOL TART IMMED RELEASE 25 MG TABLET. PO SCH ×2 (09:23→21:00)
[2018-05-12] MEDS: BUMETANIDE 1 MG TABLET. PO SCH (09:23)
[2018-05-12] MEDS: metOLazone 2.5 MG TABLET PO SCH (09:24)
[2018-05-12] MEDS: INSULIN LISPRO 300 UNITS/3 ML INSULN.PEN. SQ SCH ×3 (09:30→17:00)
--- NOTE | 2018-05-12 09:52 | PDOC ---
PROGRESS NOTES Subjective Subjective Patient seen and examined in room. c/o right foot pain, well controlled with pain medication. Objective Objective Vital Signs Date Time Temp Pulse Resp B/P (MAP) Pulse Ox O2 Delivery O2 Flow Rate FiO2 05/12/18 09:23 60 96/36 05/12/18 09:23 Room Air 05/12/18 07:00 98.3 17 97 98.3 05/10/18 10:40 3.0 Intake and Output 05/12/18 07:00 Intake Total 575 ml Output Total 0 ml Balance 575 ml Intake Oral 425 ml IV Total 150 ml Output Urine Total 0 ml # Voids 2 Physical Exam Physical Exam Awake and alert HRR BLE: Dressings dry, feet warm Assessment Assessment Problems Medical Problems: (1) Open wound of right foot Status: Acute (2) Osteomyelitis Status: Acute Plan Plan of Care Severe PVD with bilateral foot ulcers (right > left) Right calcaneous osteomyelitis ESRD DM Do not feel that the right foot is salvageable. Would recommend a right below knee amputation. Discussed with patient, he still wound like to discuss with his . Please let us know if patient is willing to proceed. Continue local wound care and off-loading bilateral feet with rooke boots. Abx per ID Comment Review of Relevant I have reviewed the following items sukumar (where applicable) has been applied. Labs Laboratory Tests Test 05/10/18 14:00 05/10/18 14:08 05/10/18 16:43 05/10/18 20:26 Hepatitis B Surface Antigen Nonreactive (Nonreactive) Hepatitis B Surface Antibody Nonreactive Glucose (Fingerstick) 146 mg/dL (70-99) 196 mg/dL (70-99) 197 mg/dL (70-99) Test 05/11/18 03:35 05/11/18 07:43 05/11/18 11:48 05/11/18 16:26 White Blood Count 10.9 x10^3/uL (4.0-11.0) Red Blood Count 3.65 x10^6/uL (4.30-5.70) Hemoglobin 11.6 g/dL (13.0-17.5) Hematocrit 34.9 % (39.0-53.0) Mean Corpuscular Volume 96 fL (79-100) Mean Corpuscular Hemoglobin 32 pg (25-35) Mean Corpuscular Hemoglobin Concent 33 g/dL (31-37) Red Cell Distribution Width 13.3 % (11.5-14.5) Platelet Count 198 x10^3/uL (140-400) Neutrophils (%) (Auto) 67 % (31-73) Lymphocytes (%) (Auto) 17 % (24-48) Monocytes (%) (Auto) 11 % (0-9) Eosinophils (%) (Auto) 5 % (0-3) Basophils (%) (Auto) 0 % (0-3) Neutrophils # (Auto) 7.3 x10^3uL (1.8-7.7) Lymphocytes # (Auto) 1.8 x10^3/uL (1.0-4.8) Monocytes # (Auto) 1.2 x10^3/uL (0.0-1.1) Eosinophils # (Auto) 0.5 x10^3/uL (0.0-0.7) Basophils # (Auto) 0.0 x10^3/uL (0.0-0.2) Erythrocyte Sedimentation Rate 76 (0-15) Sodium Level 135 mmol/L (136-145) Potassium Level 4.3 mmol/L (3.5-5.1) Chloride Level 96 mmol/L (98-107) Carbon Dioxide Level 29 mmol/L (21-32) Anion Gap 10 (6-14) Blood Urea Nitrogen 45 mg/dL (8-26) Creatinine 3.1 mg/dL (0.7-1.3) Estimated GFR (Cockcroft-Gault) 19.7 BUN/Creatinine Ratio 15 (6-20) Glucose Level 129 mg/dL (70-99) Calcium Level 8.5 mg/dL (8.5-10.1) Total Bilirubin 0.5 mg/dL (0.2-1.0) Aspartate Amino Transf (AST/SGOT) 14 U/L (15-37) Alanine Aminotransferase (ALT/SGPT) 10 U/L (16-63) Alkaline Phosphatase 87 U/L (46-116) Total Protein 6.6 g/dL (6.4-8.2) Albumin 2.4 g/dL (3.4-5.0) Albumin/Globulin Ratio 0.6 (1.0-1.7) Random Vancomycin Level 12.5 mcg/mL Glucose (Fingerstick) 121 mg/dL (70-99) 139 mg/dL (70-99) 262 mg/dL (70-99) Test 05/11/18 20:13 05/12/18 06:15 05/12/18 07:55 Glucose (Fingerstick) 156 mg/dL (70-99) 103 mg/dL (70-99) White Blood Count 14.1 x10^3/uL (4.0-11.0) Red Blood Count 3.55 x10^6/uL (4.30-5.70) Hemoglobin 11.2 g/dL (13.0-17.5) Hematocrit 33.7 % (39.0-53.0) Mean Corpuscular Volume 95 fL (79-100) Mean Corpuscular Hemoglobin 32 pg (25-35) Mean Corpuscular Hemoglobin Concent 33 g/dL (31-37) Red Cell Distribution Width 13.3 % (11.5-14.5) Platelet Count 202 x10^3/uL (140-400) Neutrophils (%) (Auto) 72 % (31-73) Lymphocytes (%) (Auto) 15 % (24-48) Monocytes (%) (Auto) 8 % (0-9) Eosinophils (%) (Auto) 5 % (0-3) Basophils (%) (Auto) 1 % (0-3) Neutrophils # (Auto) 10.1 x10^3uL (1.8-7.7) Lymphocytes # (Auto) 2.2 x10^3/uL (1.0-4.8) Monocytes # (Auto) 1.1 x10^3/uL (0.0-1.1) Eosinophils # (Auto) 0.7 x10^3/uL (0.0-0.7) Basophils # (Auto) 0.1 x10^3/uL (0.0-0.2) Sodium Level 133 mmol/L (136-145) Potassium Level 4.2 mmol/L (3.5-5.1) Chloride Level 96 mmol/L (98-107) Carbon Dioxide Level 26 mmol/L (21-32) Anion Gap 11 (6-14) Blood Urea Nitrogen 55 mg/dL (8-26) Creatinine 3.5 mg/dL (0.7-1.3) Estimated GFR (Cockcroft-Gault) 17.1 Glucose Level 133 mg/dL (70-99) Calcium Level 8.6 mg/dL (8.5-10.1) Vancomycin Level Trough 15.6 mcg/mL (10.0-20.0) Vancomycin Last Dose Date 05/09/18 Vancomycin Last Dose Time 1528 Laboratory Tests Test 05/11/18 11:48 05/11/18 16:26 05/11/18 20:13 05/12/18 06:15 Glucose (Fingerstick) 139 mg/dL (70-99) 262 mg/dL (70-99) 156 mg/dL (70-99) White Blood Count 14.1 x10^3/uL (4.0-11.0) Red Blood Count 3.55 x10^6/uL (4.30-5.70) Hemoglobin 11.2 g/dL (13.0-17.5) Hematocrit 33.7 % (39.0-53.0) Mean Corpuscular Volume 95 fL (79-100) Mean Corpuscular Hemoglobin 32 pg (25-35) Mean Corpuscular Hemoglobin Concent 33 g/dL (31-37) Red Cell Distribution Width 13.3 % (11.5-14.5) Platelet Count 202 x10^3/uL (140-400) Neutrophils (%) (Auto) 72 % (31-73) Lymphocytes (%) (Auto) 15 % (24-48) Monocytes (%) (Auto) 8 % (0-9) Eosinophils (%) (Auto) 5 % (0-3) Basophils (%) (Auto) 1 % (0-3) Neutrophils # (Auto) 10.1 x10^3uL (1.8-7.7) Lymphocytes # (Auto) 2.2 x10^3/uL (1.0-4.8) Monocytes # (Auto) 1.1 x10^3/uL (0.0-1.1) Eosinophils # (Auto) 0.7 x10^3/uL (0.0-0.7) Basophils # (Auto) 0.1 x10^3/uL (0.0-0.2) Sodium Level 133 mmol/L (136-145) Potassium Level 4.2 mmol/L (3.5-5.1) Chloride Level 96 mmol/L (98-107) Carbon Dioxide Level 26 mmol/L (21-32) Anion Gap 11 (6-14) Blood Urea Nitrogen 55 mg/dL (8-26) Creatinine 3.5 mg/dL (0.7-1.3) Estimated GFR (Cockcroft-Gault) 17.1 Glucose Level 133 mg/dL (70-99) Calcium Level 8.6 mg/dL (8.5-10.1) Vancomycin Level Trough 15.6 mcg/mL (10.0-20.0) Vancomycin Last Dose Date 05/09/18 Vancomycin Last Dose Time 1528 Test 05/12/18 07:55 Glucose (Fingerstick) 103 mg/dL (70-99) Medications Current Medications Vancomycin HCl (Vanco Per Pharmacy) 1 each PRN DAILY PRN MC SEE COMMENTS Last administered on 05/11/18at 14:26; Start 05/09/18 at 14:15 Piperacillin Sod/ Tazobactam Sod (Zosyn Per Pharmacy) 1 each PRN DAILY PRN MC SEE COMMENTS; Start 05/09/18 at 14:15 Piperacillin Sod/ Tazobactam Sod 2.25 gm/Sodium Chloride 50 ml @ 100 mls/hr 1X ONCE IV Last administered on 05/09/18at 14:52; Start 05/09/18 at 14:15; Stop 05/09/18 at 14:44; Status DC Vancomycin HCl 2 gm/Sodium Chloride 500 ml @ 250 mls/hr 1X ONCE IV Last administered on 05/09/18at 15:28; Start 05/09/18 at 15:00; Stop 05/09/18 at 16:59 ; Status DC Ondansetron HCl (Zofran) 4 mg PRN Q8HRS PRN IV NAUSEA/VOMITING; Start 05/09/18 at 15:15; Stop 05/10/18 at 15:14; Status DC Morphine Sulfate (Morphine Sulfate) 2 mg PRN Q2HR PRN IV PAIN Last administered on 05/10/18at 06:43; Start 05/09/18 at 15:15; Stop 05/10/18 at 15:14 ; Status DC Piperacillin Sod/ Tazobactam Sod 2.25 gm/Sodium Chloride 50 ml @ 100 mls/hr Q8HRS IV Last administered on 05/12/18at 06:10; Start 05/09/18 at 22:00 Vancomycin HCl (Vancomycin Random Level) 1 each 1X ONCE MC Last administered on 05/12/18 06:00; Start 05/12/18 at 06:00; Stop 05/12/18 at 06:01; Status DC Lactobacillus Rhamnosus (Culturelle) 1 cap BID PO Last administered on 09:22; Start 05/09/18 at 21:00 Aspirin (Ecotrin) 81 mg DAILYWBKFT PO Last administered on 05/12/18 09:22; Start 05/10/18 at 09:00 Vitamin D (Vitamin D3) 1,000 unit DAILY PO Last administered on 05/12/18 09:23 ; Start 05/10/18 at 09:00 Clopidogrel Bisulfate (Plavix) 75 mg DAILY PO Last administered on 05/12/18 09 :22; Start 05/10/18 at 09:00 Acetaminophen/ Hydrocodone Bitart (Lortab 5/325) 1 tab PRN Q4HRS PRN PO pain MILD TO MOD Last administered on 05/12/18 09:23; Start 05/10/18 at 08:45 Insulin Glargine (Lantus) 20 units QHS SQ Last administered on 05/11/18 21:27 ; Start 05/10/18 at 21:00 Metoprolol Tartrate (Lopressor) 25 mg BID PO Last administered on 05/12/18 09: 23; Start 05/10/18 at 09:00 Sodium Bicarbonate (Sodium Bicarbonate) 650 mg BID PO Last administered on 05/12 09:22; Start 05/10/18 at 09:00 Tamsulosin HCl (Flomax) 0.4 mg DAILY PO Last administered on 05/12/18 09:23; Start 05/10/18 at 09:00 Trazodone HCl (Desyrel) 25 mg PRN QHS PRN PO INSOMNIA; Start 05/10/18 at 08:45 Trazodone HCl (Desyrel) 150 mg QHS PO Last administered on 05/11/18 21:25; Start 05/10/18 at 21:00 Bumetanide (Bumex) 2 mg DAILY PO Last administered on 05/12/18 09:23; Start at 09:30 Insulin Human Lispro (HumaLOG) 10 units TIDWMEALS SQ Last administered on at 09:30; Start 05/10/18 at 12:00 Metolazone (Zaroxolyn) 5 mg DAILY PO Last administered on 05/12/18at 09:24; Start 05/10/18 at 09:30 Simvastatin (Zocor) 80 mg QHS PO Last administered on 05/11/18at 21:24; Start at 21:00 Sertraline HCl (Zoloft) 100 mg DAILY PO Last administered on 05/12/18at 09:23; Start 05/10/18 at 09:30 Sodium Chloride 1,000 ml @ 1,000 mls/hr Q1H PRN IV hypotension; Start 05/10/18 at 10:59; Stop 05/10/18 at 16:58; Status DC Sodium Chloride 1,000 ml @ 400 mls/hr Q2H30M PRN IV PATENCY; Start 05/10/18 at 10:59; Stop 05/10/18 at 22:58; Status DC Info (PHARMACY MONITORING -- do not chart) 1 each PRN DAILY PRN MC SEE COMMENTS ; Start 05/10/18 at 11:00 Info (PHARMACY MONITORING -- do not chart) 1 each PRN DAILY PRN MC SEE COMMENTS ; Start 05/10/18 at 11:00; Status UNV Vancomycin HCl 500 mg/Sodium Chloride 100 ml @ 100 mls/hr 1X ONCE IV Last administered on 05/11/18at 14:31; Start 05/11/18 at 15:00; Stop 05/11/18 at 15:59 ; Status DC Active Scripts Active Lantus Solostar (Insulin Glargine,Hum.rec.anlog) 100 Unit/1 Ml Insuln.pen 20 Units SQ QHS 30 Days Vancomycin Hcl 1 Gm Vial 1 Each MC MWF WITH DIALYSIS PRN 14 Days Tullos 5-325 Tablet (Acetaminophen/Hydrocodone Bitart) 1 Each Tablet 1-2 Tab PO Q4-6HRS 6 Days Aspirin Ec (Aspirin) 81 Mg Tablet. 81 Mg PO DAILYWBKFT 30 Days Flomax (Tamsulosin Hcl) 0.4 Mg Cap.er.24h 0.4 Mg PO DAILY Reported Trazodone Hcl 50 Mg Tablet 0.5 Tab PO PRN 1X Trazodone Hcl 50 Mg Tablet 3 Tab PO QHS Lisinopril 20 Mg Tablet 1 Tab PO DAILY Crestor (Rosuvastatin Calcium) 20 Mg Tablet 0.5 Tab PO DAILY Plavix (Clopidogrel Bisulfate) 75 Mg Tablet 75 Mg PO DAILY Sodium Bicarbonate 650 Mg Tablet 650 Mg PO BID Sertraline Hcl 100 Mg Tablet 100 Mg PO DAILY Novolog (Insulin Aspart) 100 Unit/1 Ml Cartridge 10 Unit SQ TIDAC Metoprolol Tartrate 25 Mg Tablet 1 Tab PO BID Metolazone 5 Mg Tablet 5 Mg PO DAILY Vitamin D3 (Cholecalciferol (Vitamin D3)) 1,000 Unit Tablet 1 Tab PO DAILY Bumetanide 2 Mg Tablet 1 Tab PO DAILY Vitals/I & O Vital Sign - Last 24 Hours 05/11/18 05/11/18 05/11/18 05/11/18 11:00 14:44 15:00 15:47 Temp 98.5 98.7 98.5 98.7 Pulse 61 61 Resp 18 18 B/P (MAP) 101/50 (67) 120/33 (62) Pulse Ox 94 94 O2 Delivery Room Air Room Air Room Air 05/11/18 05/11/18 05/11/18 05/11/18 19:00 19:33 20:00 21:26 Temp 99.0 99.0 Pulse 62 62 Resp 20 B/P (MAP) 110/38 (62) 110/38 Pulse Ox 96 O2 Delivery Room Air Room Air Room Air 05/11/18 05/12/18 05/12/18 05/12/18 23:06 02:32 03:13 07:00 Temp 98.7 98.7 98.3 98.7 98.7 98.3 Pulse 63 56 60 Resp 20 20 17 B/P (MAP) 104/34 (57) 108/38 (61) 96/36 (56) Pulse Ox 94 95 97 O2 Delivery Room Air Room Air Room Air Room Air 05/12/18 05/12/18 09:23 09:23 Pulse 60 B/P (MAP) 96/36 O2 Delivery Room Air Intake and Output 05/11/18 05/11/18 05/12/18 15:00 23:00 07:00 Intake Total 75 ml 200 ml 300 ml Output Total 0 ml Balance 75 ml 200 ml 300 ml MARIANNE ARIZA APRN May 12, 2018 09:52
[2018-05-12] MEDS ORDERED: 0.9 % SODIUM CHLORIDE 10 ML DISP.SYRIN. IV PRN ×2 (10:30)
[2018-05-12] MEDS ORDERED: IV NORMAL SALINE 1000ML BAG 1,000 ML IV PRN ×2 (10:30)
[2018-05-12] MEDS ORDERED: DIALYSIS PATIENT. MC PRN ×2 (10:30)
[2018-05-12] MEDS ORDERED: ALBUMIN HUMAN 25% 200 ML IV PRN (10:30)
--- NOTE | 2018-05-12 10:39 | PDOC ---
Infectious Disease Note Subjective Subjective Having a better day today, pain better controlled. Accepting he needs surgery Denies chills/aches/N/V/D/SOA ROS ROS o/w neg Vital Sign Vital Signs Vital Signs Date Time Temp Pulse Resp B/P (MAP) Pulse Ox O2 Delivery O2 Flow Rate FiO2 05/12/18 09:23 60 96/36 05/12/18 09:23 Room Air 05/12/18 07:00 98.3 17 97 98.3 Physical Exam PHYSICAL EXAM GENERAL: NAD, coop HEENT: Pupils are equally round. Normal conjunctivae. Oral cavity: Pharynx pink and moist. NECK: Supple. LUNGS: Clear to auscultation. HEART: S1 and S2. Pacemaker. ABDOMEN: Obese, soft and nontender with bowel sounds present. EXTREMITIES: No gross edema or cyanosis. Rooke boots. RUE-AV fistula unremarkable. SKIN: Warm without generalized rash. coccyx ulcer (pic) NEUROLOGIC: Arouse to name, responds appropriately. PIV ok Labs Lab Laboratory Tests Test 05/11/18 11:48 05/11/18 16:26 05/11/18 20:13 05/12/18 06:15 Glucose (Fingerstick) 139 mg/dL (70-99) 262 mg/dL (70-99) 156 mg/dL (70-99) White Blood Count 14.1 x10^3/uL (4.0-11.0) Red Blood Count 3.55 x10^6/uL (4.30-5.70) Hemoglobin 11.2 g/dL (13.0-17.5) Hematocrit 33.7 % (39.0-53.0) Mean Corpuscular Volume 95 fL (79-100) Mean Corpuscular Hemoglobin 32 pg (25-35) Mean Corpuscular Hemoglobin Concent 33 g/dL (31-37) Red Cell Distribution Width 13.3 % (11.5-14.5) Platelet Count 202 x10^3/uL (140-400) Neutrophils (%) (Auto) 72 % (31-73) Lymphocytes (%) (Auto) 15 % (24-48) Monocytes (%) (Auto) 8 % (0-9) Eosinophils (%) (Auto) 5 % (0-3) Basophils (%) (Auto) 1 % (0-3) Neutrophils # (Auto) 10.1 x10^3uL (1.8-7.7) Lymphocytes # (Auto) 2.2 x10^3/uL (1.0-4.8) Monocytes # (Auto) 1.1 x10^3/uL (0.0-1.1) Eosinophils # (Auto) 0.7 x10^3/uL (0.0-0.7) Basophils # (Auto) 0.1 x10^3/uL (0.0-0.2) Sodium Level 133 mmol/L (136-145) Potassium Level 4.2 mmol/L (3.5-5.1) Chloride Level 96 mmol/L (98-107) Carbon Dioxide Level 26 mmol/L (21-32) Anion Gap 11 (6-14) Blood Urea Nitrogen 55 mg/dL (8-26) Creatinine 3.5 mg/dL (0.7-1.3) Estimated GFR (Cockcroft-Gault) 17.1 Glucose Level 133 mg/dL (70-99) Calcium Level 8.6 mg/dL (8.5-10.1) Vancomycin Level Trough 15.6 mcg/mL (10.0-20.0) Vancomycin Last Dose Date 05/09/18 Vancomycin Last Dose Time 1528 Test 05/12/18 07:55 Glucose (Fingerstick) 103 mg/dL (70-99) Objective Assessment Fever - better Leukocytosis ? reactive Large nonhealing calcaneal wound with suspected osteo on x-ray/exam. ESR 77 -h/o debridement subcutaneous tissue and skin, 02/2018. no cultures and CT neg -d/c home on vanc and Augmentin x 3 weeks on 03/27/18. Left foot ulcers Coccyx ulcer PVD DM II CKD/HD Pacemaker h/o MRSA h/o Klebsiella (R amp) Plan Plan of Care Continue vanc and Zosyn - add micafungin CBC in am BC Monitor labs/temp. Local wound care Awaiting vascular follow-up ASHLYN BRADLEY MD May 12, 2018 10:39
[2018-05-12 11:00] VITALS: BP 126/103
[2018-05-12] MEDS: MICAFUNGIN 100 MG in IV DEXTROSE 5% 100ML 100 ML IV SCH (11:00)
--- NOTE | 2018-05-12 11:03 | NUR ---
IP: Pt has a hx of + mrsa screens with most recent on 12/31/17. Pt has one documented negative on [id number]. Pt to be in contact precautions until a second screen is obtained and verified.
[2018-05-12] MEDS: DEXTROSE 50% 25 GM / 50ML DISP.SYRIN. IV PRN (11:56)
[2018-05-12] MEDS: VANCOMYCIN PER PHARMACY MC PRN (12:40)
--- NOTE | 2018-05-12 12:40 | NUR ---
Pharmacy Vancomycin Dosing Note S:Consulted to monitor and dose vancomycin started 05/09/18. O:BRIDGET TATE is a 77 year old M with Cellulitis Osteomyelitis . Height: 6 feet, 0 inches Weight: 105.737052 kg [place] Body Weight: 77.60 Adjusted Body Weight: 88.28 Dosing Weight: Actual Other Antibiotics: MYCAMINE 03/11 - Zosyn LABS: Last BUN: 55 Last Creatinine: 3.5 Creatinine Clearance: HD on - mL/min Last WBC: 14.1 Last Procalcitonin: - Tmax (past 24 hours): 98.8 Microbiology: 05/12 BCX NG I/O: 250/350 Drug Levels: Last Random level: 15.6 on 05/12/18 at 0615 Last dose given 05/11/18 at 1430 Vancomycin Dosing: Loading Dose: 2000 mg x1 Dosing Weight: Actual Target Trough: 15-20 A: Based on: pre-HD level 15.6, expected 25-30% removal via HD, P: 1. Initiate Vancomycin 500 mg IV POST HD RUN MWF starting today. 2. Follow up Random level as needed. 3. Pharmacy will continue to monitor, follow and adjust therapy as needed. RIDDHI HORAN FORMERLY [facility] [place], 05/12/18 [id number]
--- NOTE | 2018-05-12 13:59 | EKG ---
[facility] [address] [place] [address] Test Date: 2018-05-09 Test Time: 14:09:51 Pat Name: BRIDGET TATE Department: Room: [facility] Gender: Senior Quality Methods Specialist: : [id number] Requested By: DARCIE BOROKS Order Number: [id number] Reading MD: Alberto Ruiz Measurements Intervals [place] Rate: P: AK: QRS: QRSD: T: QT: QTc: Interpretive Statements AV SEQUENTIAL PACED RHYTHM Electronically Signed On 05-14-2018 8:45:31 QUALITY ENGINEERING MANAGER by Alberto Ruiz
--- NOTE | 2018-05-12 14:58 | PDOC ---
SUBJECTIVE ROS Seen on HD, tolerating well , No complaints OBJECTIVE Vital Signs Vital Signs Date Time Temp Pulse Resp B/P (MAP) Pulse Ox O2 Delivery O2 Flow Rate FiO2 05/12/18 11:00 98.1 60 17 126/103 (111) 95 Room Air 98.1 I & 0 Intake and Output 05/12/18 06:59 Intake Total 575 ml Output Total 0 ml Balance 575 ml Intake Oral 425 ml IV Total 150 ml Output Urine Total 0 ml # Voids 2 PHYSICAL EXAM Physical Exam GENERAL: NAD, HEENT: OM moist NECK: Supple. LUNGS: Clear to auscultation. HEART: S1 and S2. Pacemaker. ABDOMEN: Obese, soft and nontender EXTREMITIES: No gross edema Rooke boots. RUE-AV fistula - Thrill/Bruit+ SKIN: No rash. coccyx ulcer + DIAGNOSIS/ASSESSMENT Assessment & Plan ESRD- MWF Seen on HD, tolerating well , Continue as Ordered Discussed with Program Admin Large nonhealing calcaneal wound with suspected osteo on x-ray/exam. -h/o debridement subcutaneous tissue and skin d/evan home on vanc and Augmentin x 3 weeks on 03/27/18 Vascular recommends right below knee amputation Left foot ulcers/Coccyx ulcer Anemia- Hgb stable No indication for KVNG DM II Pacemaker COMMENT/RELEVANT DATA Meds Current Medications Medications (Trade) Dose Ordered Sig/Cherie Start Time Stop Time Status Last Admin Dose Admin Acetaminophen/ Hydrocodone Bitart (Lortab 5/325) 1 tab PRN Q4HRS PRN 05/10/18 08:45 05/12/18 09:23 1 TAB Albumin Human 200 ml @ 200 mls/hr 1X PRN PRN 05/12/18 10:30 05/12/18 16:29 Aspirin (Ecotrin) 81 mg DAILYWBKFT 05/10/18 09:00 05/12/18 09:22 81 MG Bumetanide (Bumex) 2 mg DAILY 05/10/18 09:30 05/12/18 09:23 2 MG Clopidogrel Bisulfate (Plavix) 75 mg DAILY 05/10/18 09:00 05/12/18 09:22 75 MG Dextrose (Dextrose 50%-Water Syringe) 12.5 gm PRN Q15MIN PRN 05/12/18 11:45 05/12/18 11:56 12.5 GM Info (PHARMACY MONITORING -- do not chart) 1 each PRN DAILY PRN 05/12/18 10:30 UNV Insulin Glargine (Lantus) 20 units QHS 05/10/18 21:00 05/11/18 21:27 20 UNITS Insulin Human Lispro (HumaLOG) 10 units TIDWMEALS 05/10/18 12:00 05/12/18 09:30 10 UNITS Lactobacillus Rhamnosus (Culturelle) 1 cap BID 05/09/18 21:00 05/12/18 09:22 1 CAP Metolazone (Zaroxolyn) 5 mg DAILY 05/10/18 09:30 05/12/18 09:24 5 MG Metoprolol Tartrate (Lopressor) 25 mg BID 05/10/18 09:00 05/12/18 09:23 25 MG Micafungin Sodium 100 mg/Dextrose 100 ml @ 100 mls/hr Q24H 05/12/18 11:00 Morphine Sulfate (Morphine Sulfate) 2 mg PRN Q2HR PRN 05/09/18 15:15 05/10/18 15:14 DC 05/10/18 06:43 2 MG Ondansetron HCl (Zofran) 4 mg PRN Q8HRS PRN 05/09/18 15:15 05/10/18 15:14 DC Piperacillin Sod/ Tazobactam Sod (Zosyn Per Pharmacy) 1 each PRN DAILY PRN 05/09/18 14:15 Piperacillin Sod/ Tazobactam Sod 2.25 gm/Sodium Chloride 50 ml @ 100 mls/hr Q8HRS 05/09/18 22:00 05/12/18 06:10 100 MLS/HR Sertraline HCl (Zoloft) 100 mg DAILY 05/10/18 09:30 05/12/18 09:23 100 MG Simvastatin (Zocor) 80 mg QHS 05/10/18 21:00 05/11/18 21:24 80 MG Sodium Bicarbonate (Sodium Bicarbonate) 650 mg BID 05/10/18 09:00 05/12/18 09:22 650 MG Sodium Chloride 1,000 ml @ 400 mls/hr Q2H30M PRN 05/12/18 10:30 05/12/18 18:00 Sodium Chloride (Normal Saline Flush) 10 ml 1X PRN PRN 05/12/18 10:30 05/12/18 18:00 Tamsulosin HCl (Flomax) 0.4 mg DAILY 05/10/18 09:00 05/12/18 09:23 0.4 MG Trazodone HCl (Desyrel) 150 mg QHS 05/10/18 21:00 05/11/18 21:25 150 MG Vancomycin HCl (Vanco Per Pharmacy) 1 each PRN DAILY PRN 05/09/18 14:15 05/12/18 12:40 1 EACH Vancomycin HCl (Vancomycin Random Level) 1 each 1X ONCE 05/12/18 06:00 05/12/18 06:01 DC 05/12/18 06:00 1 EACH Vancomycin HCl 500 mg/Sodium Chloride 100 ml @ 100 mls/hr QMWF@1600 05/12/18 16:00 Vancomycin HCl 2 gm/Sodium Chloride 500 ml @ 250 mls/hr 1X ONCE 05/09/18 15:00 05/09/18 16:59 DC 05/09/18 15:28 250 MLS/HR Vitamin D (Vitamin D3) 1,000 unit DAILY 05/10/18 09:00 05/12/18 09:23 1,000 UNIT Lab Laboratory Tests Test 05/11/18 16:26 05/11/18 20:13 05/12/18 06:15 05/12/18 07:55 Glucose (Fingerstick) 262 mg/dL (70-99) 156 mg/dL (70-99) 103 mg/dL (70-99) White Blood Count 14.1 x10^3/uL (4.0-11.0) Red Blood Count 3.55 x10^6/uL (4.30-5.70) Hemoglobin 11.2 g/dL (13.0-17.5) Hematocrit 33.7 % (39.0-53.0) Mean Corpuscular Volume 95 fL (79-100) Mean Corpuscular Hemoglobin 32 pg (25-35) Mean Corpuscular Hemoglobin Concent 33 g/dL (31-37) Red Cell Distribution Width 13.3 % (11.5-14.5) Platelet Count 202 x10^3/uL (140-400) Neutrophils (%) (Auto) 72 % (31-73) Lymphocytes (%) (Auto) 15 % (24-48) Monocytes (%) (Auto) 8 % (0-9) Eosinophils (%) (Auto) 5 % (0-3) Basophils (%) (Auto) 1 % (0-3) Neutrophils # (Auto) 10.1 x10^3uL (1.8-7.7) Lymphocytes # (Auto) 2.2 x10^3/uL (1.0-4.8) Monocytes # (Auto) 1.1 x10^3/uL (0.0-1.1) Eosinophils # (Auto) 0.7 x10^3/uL (0.0-0.7) Basophils # (Auto) 0.1 x10^3/uL (0.0-0.2) Sodium Level 133 mmol/L (136-145) Potassium Level 4.2 mmol/L (3.5-5.1) Chloride Level 96 mmol/L (98-107) Carbon Dioxide Level 26 mmol/L (21-32) Anion Gap 11 (6-14) Blood Urea Nitrogen 55 mg/dL (8-26) Creatinine 3.5 mg/dL (0.7-1.3) Estimated GFR (Cockcroft-Gault) 17.1 Glucose Level 133 mg/dL (70-99) Calcium Level 8.6 mg/dL (8.5-10.1) Vancomycin Level Trough 15.6 mcg/mL (10.0-20.0) Vancomycin Last Dose Date 05/09/18 Vancomycin Last Dose Time 1528 Test 05/12/18 11:43 Glucose (Fingerstick) 50 mg/dL (70-99) Results All relevant outside records, renal labs, imaging studies, telemetry/EKG's were reviewed. ONDINA YAO MD May 12, 2018 14:58
[2018-05-12 15:00] VITALS: BP 125/64
--- NOTE | 2018-05-12 15:19 | PDOC ---
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 Change from biphasic to monophasic at the right superficial femoral artery to popliteal artery suggests a superficial femoral artery stenosis Decreased velocity in the distal popliteal suggests popliteal stenosis. No flow in the dorsalis pedis on the right suggests occlusion the right anterior tibial. Diabetes type 2 with HX hypoglycemic episodes- Generalized weakness- ESRD on dialysis Saturday, noncompliance x 1 week with dialysis Anemia of ESRD Hypertension controlled Indwelling right HD catheter Right calcaneal wound s/p debridement, excision subcutaneous tissue and skin . Right big toe ulcer - increased redness 2 small ulcers OF left lateral foot. PAD ESRD/HD via AVF History of Present Illness History of Present Illness ID consult wound care consult nephrology consult rec. BKA, Vitals Vitals Vital Signs Date Time Temp Pulse Resp B/P (MAP) Pulse Ox O2 Delivery O2 Flow Rate FiO2 05/12/18 11:00 98.1 60 17 126/103 (111) 95 Room Air 98.1 Physical Exam Physical Exam GENERAL: NAD, coop HEENT: Pupils are equally round. Normal conjunctivae. Oral cavity: Pharynx pink and moist. NECK: Supple. LUNGS: Clear to auscultation. HEART: S1 and S2. Pacemaker. ABDOMEN: Obese, soft and nontender with bowel sounds present. EXTREMITIES: No gross edema or cyanosis. Rooke boots. RUE-AV fistula unremarkable. SKIN: Warm without generalized rash. coccyx ulcer (pic) NEUROLOGIC: Arouse to name, responds appropriately. PIV ok General: Alert, No acute distress Heart: Regular rate Lungs: Clear, Other Abdomen: Soft, No tenderness Extremities: Other (Bilateral foot dressings in place. Refer to yesterday dictation for descripton of ulcers.) Skin: No breakdown Labs LABS Laboratory Tests Test 05/11/18 16:26 05/11/18 20:13 05/12/18 06:15 05/12/18 07:55 Glucose (Fingerstick) 262 mg/dL (70-99) 156 mg/dL (70-99) 103 mg/dL (70-99) White Blood Count 14.1 x10^3/uL (4.0-11.0) Red Blood Count 3.55 x10^6/uL (4.30-5.70) Hemoglobin 11.2 g/dL (13.0-17.5) Hematocrit 33.7 % (39.0-53.0) Mean Corpuscular Volume 95 fL (79-100) Mean Corpuscular Hemoglobin 32 pg (25-35) Mean Corpuscular Hemoglobin Concent 33 g/dL (31-37) Red Cell Distribution Width 13.3 % (11.5-14.5) Platelet Count 202 x10^3/uL (140-400) Neutrophils (%) (Auto) 72 % (31-73) Lymphocytes (%) (Auto) 15 % (24-48) Monocytes (%) (Auto) 8 % (0-9) Eosinophils (%) (Auto) 5 % (0-3) Basophils (%) (Auto) 1 % (0-3) Neutrophils # (Auto) 10.1 x10^3uL (1.8-7.7) Lymphocytes # (Auto) 2.2 x10^3/uL (1.0-4.8) Monocytes # (Auto) 1.1 x10^3/uL (0.0-1.1) Eosinophils # (Auto) 0.7 x10^3/uL (0.0-0.7) Basophils # (Auto) 0.1 x10^3/uL (0.0-0.2) Sodium Level 133 mmol/L (136-145) Potassium Level 4.2 mmol/L (3.5-5.1) Chloride Level 96 mmol/L (98-107) Carbon Dioxide Level 26 mmol/L (21-32) Anion Gap 11 (6-14) Blood Urea Nitrogen 55 mg/dL (8-26) Creatinine 3.5 mg/dL (0.7-1.3) Estimated GFR (Cockcroft-Gault) 17.1 Glucose Level 133 mg/dL (70-99) Calcium Level 8.6 mg/dL (8.5-10.1) Vancomycin Level Trough 15.6 mcg/mL (10.0-20.0) Vancomycin Last Dose Date 05/09/18 Vancomycin Last Dose Time 1528 Test 05/12/18 11:43 Glucose (Fingerstick) 50 mg/dL (70-99) Assessment and Plan Assessmemt and Plan Problems Medical Problems: (1) Open wound of right foot Status: Acute (2) Osteomyelitis Status: Acute Comment Review of Relevant I have reviewed the following items sukumar (where applicable) has been applied. Labs Laboratory Tests Test 05/10/18 16:43 05/10/18 20:26 05/11/18 03:35 05/11/18 07:43 Glucose (Fingerstick) 196 mg/dL (70-99) 197 mg/dL (70-99) 121 mg/dL (70-99) White Blood Count 10.9 x10^3/uL (4.0-11.0) Red Blood Count 3.65 x10^6/uL (4.30-5.70) Hemoglobin 11.6 g/dL (13.0-17.5) Hematocrit 34.9 % (39.0-53.0) Mean Corpuscular Volume 96 fL (79-100) Mean Corpuscular Hemoglobin 32 pg (25-35) Mean Corpuscular Hemoglobin Concent 33 g/dL (31-37) Red Cell Distribution Width 13.3 % (11.5-14.5) Platelet Count 198 x10^3/uL (140-400) Neutrophils (%) (Auto) 67 % (31-73) Lymphocytes (%) (Auto) 17 % (24-48) Monocytes (%) (Auto) 11 % (0-9) Eosinophils (%) (Auto) 5 % (0-3) Basophils (%) (Auto) 0 % (0-3) Neutrophils # (Auto) 7.3 x10^3uL (1.8-7.7) Lymphocytes # (Auto) 1.8 x10^3/uL (1.0-4.8) Monocytes # (Auto) 1.2 x10^3/uL (0.0-1.1) Eosinophils # (Auto) 0.5 x10^3/uL (0.0-0.7) Basophils # (Auto) 0.0 x10^3/uL (0.0-0.2) Erythrocyte Sedimentation Rate 76 (0-15) Sodium Level 135 mmol/L (136-145) Potassium Level 4.3 mmol/L (3.5-5.1) Chloride Level 96 mmol/L (98-107) Carbon Dioxide Level 29 mmol/L (21-32) Anion Gap 10 (6-14) Blood Urea Nitrogen 45 mg/dL (8-26) Creatinine 3.1 mg/dL (0.7-1.3) Estimated GFR (Cockcroft-Gault) 19.7 BUN/Creatinine Ratio 15 (6-20) Glucose Level 129 mg/dL (70-99) Calcium Level 8.5 mg/dL (8.5-10.1) Total Bilirubin 0.5 mg/dL (0.2-1.0) Aspartate Amino Transf (AST/SGOT) 14 U/L (15-37) Alanine Aminotransferase (ALT/SGPT) 10 U/L (16-63) Alkaline Phosphatase 87 U/L (46-116) Total Protein 6.6 g/dL (6.4-8.2) Albumin 2.4 g/dL (3.4-5.0) Albumin/Globulin Ratio 0.6 (1.0-1.7) Random Vancomycin Level 12.5 mcg/mL Test 05/11/18 11:48 05/11/18 16:26 05/11/18 20:13 05/12/18 06:15 Glucose (Fingerstick) 139 mg/dL (70-99) 262 mg/dL (70-99) 156 mg/dL (70-99) White Blood Count 14.1 x10^3/uL (4.0-11.0) Red Blood Count 3.55 x10^6/uL (4.30-5.70) Hemoglobin 11.2 g/dL (13.0-17.5) Hematocrit 33.7 % (39.0-53.0) Mean Corpuscular Volume 95 fL (79-100) Mean Corpuscular Hemoglobin 32 pg (25-35) Mean Corpuscular Hemoglobin Concent 33 g/dL (31-37) Red Cell Distribution Width 13.3 % (11.5-14.5) Platelet Count 202 x10^3/uL (140-400) Neutrophils (%) (Auto) 72 % (31-73) Lymphocytes (%) (Auto) 15 % (24-48) Monocytes (%) (Auto) 8 % (0-9) Eosinophils (%) (Auto) 5 % (0-3) Basophils (%) (Auto) 1 % (0-3) Neutrophils # (Auto) 10.1 x10^3uL (1.8-7.7) Lymphocytes # (Auto) 2.2 x10^3/uL (1.0-4.8) Monocytes # (Auto) 1.1 x10^3/uL (0.0-1.1) Eosinophils # (Auto) 0.7 x10^3/uL (0.0-0.7) Basophils # (Auto) 0.1 x10^3/uL (0.0-0.2) Sodium Level 133 mmol/L (136-145) Potassium Level 4.2 mmol/L (3.5-5.1) Chloride Level 96 mmol/L (98-107) Carbon Dioxide Level 26 mmol/L (21-32) Anion Gap 11 (6-14) Blood Urea Nitrogen 55 mg/dL (8-26) Creatinine 3.5 mg/dL (0.7-1.3) Estimated GFR (Cockcroft-Gault) 17.1 Glucose Level 133 mg/dL (70-99) Calcium Level 8.6 mg/dL (8.5-10.1) Vancomycin Level Trough 15.6 mcg/mL (10.0-20.0) Vancomycin Last Dose Date 05/09/18 Vancomycin Last Dose Time 1528 Test 05/12/18 07:55 05/12/18 11:43 Glucose (Fingerstick) 103 mg/dL (70-99) 50 mg/dL (70-99) Laboratory Tests Test 05/11/18 16:26 05/11/18 20:13 05/12/18 06:15 05/12/18 07:55 Glucose (Fingerstick) 262 mg/dL (70-99) 156 mg/dL (70-99) 103 mg/dL (70-99) White Blood Count 14.1 x10^3/uL (4.0-11.0) Red Blood Count 3.55 x10^6/uL (4.30-5.70) Hemoglobin 11.2 g/dL (13.0-17.5) Hematocrit 33.7 % (39.0-53.0) Mean Corpuscular Volume 95 fL (79-100) Mean Corpuscular Hemoglobin 32 pg (25-35) Mean Corpuscular Hemoglobin Concent 33 g/dL (31-37) Red Cell Distribution Width 13.3 % (11.5-14.5) Platelet Count 202 x10^3/uL (140-400) Neutrophils (%) (Auto) 72 % (31-73) Lymphocytes (%) (Auto) 15 % (24-48) Monocytes (%) (Auto) 8 % (0-9) Eosinophils (%) (Auto) 5 % (0-3) Basophils (%) (Auto) 1 % (0-3) Neutrophils # (Auto) 10.1 x10^3uL (1.8-7.7) Lymphocytes # (Auto) 2.2 x10^3/uL (1.0-4.8) Monocytes # (Auto) 1.1 x10^3/uL (0.0-1.1) Eosinophils # (Auto) 0.7 x10^3/uL (0.0-0.7) Basophils # (Auto) 0.1 x10^3/uL (0.0-0.2) Sodium Level 133 mmol/L (136-145) Potassium Level 4.2 mmol/L (3.5-5.1) Chloride Level 96 mmol/L (98-107) Carbon Dioxide Level 26 mmol/L (21-32) Anion Gap 11 (6-14) Blood Urea Nitrogen 55 mg/dL (8-26) Creatinine 3.5 mg/dL (0.7-1.3) Estimated GFR (Cockcroft-Gault) 17.1 Glucose Level 133 mg/dL (70-99) Calcium Level 8.6 mg/dL (8.5-10.1) Vancomycin Level Trough 15.6 mcg/mL (10.0-20.0) Vancomycin Last Dose Date 05/09/18 Vancomycin Last Dose Time 1528 Test 05/12/18 11:43 Glucose (Fingerstick) 50 mg/dL (70-99) Microbiology 05/11/18 Blood Culture - Preliminary, Resulted NO GROWTH AFTER 1 DAY Medications Current Medications Vancomycin HCl (Vanco Per Pharmacy) 1 each PRN DAILY PRN MC SEE COMMENTS Last administered on 05/12/18at 12:40; Start 05/09/18 at 14:15 Piperacillin Sod/ Tazobactam Sod (Zosyn Per Pharmacy) 1 each PRN DAILY PRN MC SEE COMMENTS; Start 05/09/18 at 14:15 Piperacillin Sod/ Tazobactam Sod 2.25 gm/Sodium Chloride 50 ml @ 100 mls/hr 1X ONCE IV Last administered on 05/09/18at 14:52; Start 05/09/18 at 14:15; Stop 05/09/18 at 14:44; Status DC Vancomycin HCl 2 gm/Sodium Chloride 500 ml @ 250 mls/hr 1X ONCE IV Last administered on 05/09/18at 15:28; Start 05/09/18 at 15:00; Stop 05/09/18 at 16:59 ; Status DC Ondansetron HCl (Zofran) 4 mg PRN Q8HRS PRN IV NAUSEA/VOMITING; Start 05/09/18 at 15:15; Stop 05/10/18 at 15:14; Status DC Morphine Sulfate (Morphine Sulfate) 2 mg PRN Q2HR PRN IV PAIN Last administered on 05/10/18at 06:43; Start 05/09/18 at 15:15; Stop 05/10/18 at 15:14 ; Status DC Piperacillin Sod/ Tazobactam Sod 2.25 gm/Sodium Chloride 50 ml @ 100 mls/hr Q8HRS IV Last administered on 05/12/18 06:10; Start 05/09/18 at 22:00 Vancomycin HCl (Vancomycin Random Level) 1 each 1X ONCE MC Last administered on 05/12/18 06:00; Start 05/12/18 at 06:00; Stop 05/12/18 at 06:01; Status DC Lactobacillus Rhamnosus (Culturelle) 1 cap BID PO Last administered on 09:22; Start 05/09/18 at 21:00 Aspirin (Ecotrin) 81 mg DAILYWBKFT PO Last administered on 05/12/18at 09:22; Start 05/10/18 at 09:00 Vitamin D (Vitamin D3) 1,000 unit DAILY PO Last administered on 05/12/18 09:23 ; Start 05/10/18 at 09:00 Clopidogrel Bisulfate (Plavix) 75 mg DAILY PO Last administered on 05/12/18at 09 :22; Start 05/10/18 at 09:00 Acetaminophen/ Hydrocodone Bitart (Lortab 5/325) 1 tab PRN Q4HRS PRN PO pain MILD TO MOD Last administered on 05/12/18at 09:23; Start 05/10/18 at 08:45 Insulin Glargine (Lantus) 20 units QHS SQ Last administered on 05/11/18 21:27 ; Start 05/10/18 at 21:00 Metoprolol Tartrate (Lopressor) 25 mg BID PO Last administered on 05/12/18 09: 23; Start 05/10/18 at 09:00 Sodium Bicarbonate (Sodium Bicarbonate) 650 mg BID PO Last administered on 05/12 09:22; Start 05/10/18 at 09:00 Tamsulosin HCl (Flomax) 0.4 mg DAILY PO Last administered on 05/12/18 09:23; Start 05/10/18 at 09:00 Trazodone HCl (Desyrel) 25 mg PRN QHS PRN PO INSOMNIA; Start 05/10/18 at 08:45 Trazodone HCl (Desyrel) 150 mg QHS PO Last administered on 05/11/18 21:25; Start 05/10/18 at 21:00 Bumetanide (Bumex) 2 mg DAILY PO Last administered on 05/12/18 09:23; Start at 09:30 Insulin Human Lispro (HumaLOG) 10 units TIDWMEALS SQ Last administered on 09:30; Start 05/10/18 at 12:00 Metolazone (Zaroxolyn) 5 mg DAILY PO Last administered on 05/12/18 09:24; Start 05/10/18 at 09:30 Simvastatin (Zocor) 80 mg QHS PO Last administered on 05/11/18 21:24; Start at 21:00 Sertraline HCl (Zoloft) 100 mg DAILY PO Last administered on 05/12/18 09:23; Start 05/10/18 at 09:30 Sodium Chloride 1,000 ml @ 1,000 mls/hr Q1H PRN IV hypotension; Start 05/10/18 at 10:59; Stop 05/10/18 at 16:58; Status DC Sodium Chloride 1,000 ml @ 400 mls/hr Q2H30M PRN IV PATENCY; Start 05/10/18 at 10:59; Stop 05/10/18 at 22:58; Status DC Info (PHARMACY MONITORING -- do not chart) 1 each PRN DAILY PRN MC SEE COMMENTS ; Start 05/10/18 at 11:00 Info (PHARMACY MONITORING -- do not chart) 1 each PRN DAILY PRN MC SEE COMMENTS ; Start 05/10/18 at 11:00; Status UNV Vancomycin HCl 500 mg/Sodium Chloride 100 ml @ 100 mls/hr 1X ONCE IV Last administered on 05/11/18at 14:31; Start 05/11/18 at 15:00; Stop 05/11/18 at 15:59 ; Status DC Sodium Chloride 1,000 ml @ 1,000 mls/hr Q1H PRN IV hypotension; Start 05/12/18 at 10:30; Stop 05/12/18 at 19:00 Albumin Human 200 ml @ 200 mls/hr 1X PRN PRN IV Hypotension; Start 05/12/18 at 10:30; Stop 05/12/18 at 16:29 Sodium Chloride (Normal Saline Flush) 10 ml 1X PRN PRN IV AP catheter pack; Start 05/12/18 at 10:30; Stop 05/12/18 at 18:00 Sodium Chloride (Normal Saline Flush) 10 ml 1X PRN PRN IV PREFORM [employer]ATE [employer]KER catheter pack; Start 05/12/18 at 10:30; Stop 05/12/18 at 18:00 Sodium Chloride 1,000 ml @ 400 mls/hr Q2H30M PRN IV PATENCY; Start 05/12/18 at 10:30; Stop 05/12/18 at 18:00 Info (PHARMACY MONITORING -- do not chart) 1 each PRN DAILY PRN MC SEE COMMENTS ; Start 05/12/18 at 10:30; Status UNV Info (PHARMACY MONITORING -- do not chart) 1 each PRN DAILY PRN MC SEE COMMENTS ; Start 05/12/18 at 10:30; Status UNV Micafungin Sodium 100 mg/Dextrose 100 ml @ 100 mls/hr Q24H IV ; Start 05/12/18 at 11:00 Dextrose (Dextrose 50%-Water Syringe) 12.5 gm PRN Q15MIN PRN IV SEE COMMENTS Last administered on 05/12/18at 11:56; Start 05/12/18 at 11:45 Vancomycin HCl 500 mg/Sodium Chloride 100 ml @ 100 mls/hr QMWF@1600 IV ; Start 05/12/18 at 16:00 Active Scripts Active Lantus Solostar (Insulin Glargine,Hum.rec.anlog) 100 Unit/1 Ml Insuln.pen 20 Units SQ QHS 30 Days Vancomycin Hcl 1 Gm Vial 1 Each MWF WITH DIALYSIS PRN 14 Days [place] 5-325 Tablet (Acetaminophen/Hydrocodone Bitart) 1 Each Tablet 1-2 Tab PO Q4-6HRS 6 Days Aspirin Ec (Aspirin) 81 Mg Tablet.dr 81 Mg PO DAILYWBKFT 30 Days Flomax (Tamsulosin Hcl) 0.4 Mg Cap.er.24h 0.4 Mg PO DAILY Reported Trazodone Hcl 50 Mg Tablet 0.5 Tab PO PRN 1X Trazodone Hcl 50 Mg Tablet 3 Tab PO QHS Lisinopril 20 Mg Tablet 1 Tab PO DAILY Crestor (Rosuvastatin Calcium) 20 Mg Tablet 0.5 Tab PO DAILY Plavix (Clopidogrel Bisulfate) 75 Mg Tablet 75 Mg PO DAILY Sodium Bicarbonate 650 Mg Tablet 650 Mg PO BID Sertraline Hcl 100 Mg Tablet 100 Mg PO DAILY Novolog (Insulin Aspart) 100 Unit/1 Ml Cartridge 10 Unit SQ TIDAC Metoprolol Tartrate 25 Mg Tablet 1 Tab PO BID Metolazone 5 Mg Tablet 5 Mg PO DAILY Vitamin D3 (Cholecalciferol (Vitamin D3)) 1,000 Unit Tablet 1 Tab PO DAILY Bumetanide 2 Mg Tablet 1 Tab PO DAILY Vitals/I & O Vital Sign - Last 24 Hours 05/11/18 05/11/18 05/11/18 05/11/18 15:47 19:00 19:33 20:00 Temp 99.0 99.0 Pulse 62 Resp 18 20 B/P (MAP) 110/38 (62) Pulse Ox 96 O2 Delivery Room Air Room Air Room Air 05/11/18 05/11/18 05/12/18 05/12/18 21:26 23:06 02:32 03:13 Temp 98.7 98.7 98.7 98.7 Pulse 62 63 56 Resp 20 20 B/P (MAP) 110/38 104/34 (57) 108/38 (61) Pulse Ox 94 95 O2 Delivery Room Air Room Air Room Air 05/12/18 05/12/18 05/12/18 05/12/18 07:00 09:23 09:23 10:23 Temp 98.3 98.3 Pulse 60 60 Resp 17 B/P (MAP) 96/36 (56) 96/36 Pulse Ox 97 O2 Delivery Room Air Room Air Room Air 05/12/18 11:00 Temp 98.1 98.1 Pulse 60 Resp 17 B/P (MAP) 126/103 (111) Pulse Ox 95 O2 Delivery Room Air Intake and Output 05/11/18 05/11/18 05/12/18 15:00 23:00 07:00 Intake Total 75 ml 200 ml 300 ml Output Total 0 ml Balance 75 ml 200 ml 300 ml Nutrition Consultation Dietary Evaluation: Recommendations by RD: Increase Calorie Intake, Protein supplementation, Add supplement feedings Comments: Pt. states he uses an adaptive spoon at home due to difficulty holding onto spoon when feeding himself. Notified OT. Expected Outcomes/Goals: P.O. intake >75% Supplement intake Continue Renal/ADA diet Malnutrition Findings: Food and Nutrition Intake (Mod: <75% est energy req 7days Body Fat Depletion (Non Severe: Mild Depletion Weight Status: Obese VICENTE FLORES MD May 12, 2018 15:19
--- NOTE | 2018-05-12 16:23 | NUR ---
Wound care: Attempted to see patient regarding wound care. Patient currently in dialysis at this time. Wound care will follow up with patient tomorrow.
[2018-05-12] MEDS: VANCOMYCIN 500 MG in IV NORMAL SALINE 100ML 100 ML IV SCH (17:22)
[2018-05-12 20:11] VITALS: BP 96/41
[2018-05-12] MEDS: traZODone 50 MG TABLET. PO SCH (21:48)
[2018-05-12] MEDS: SIMVASTATIN 40 MG TABLET. PO SCH (21:49)
[2018-05-12] MEDS: INSULIN GLARGINE 300 UNITS/3 ML INSULN.PEN. SQ SCH (21:58)
[2018-05-12 22:35] VITALS: BP 101/45
[2018-05-13] VITALS (8 sets, daily range): BP systolic 73–122; BP diastolic 38–80
[2018-05-13 04:35] LABS: BILIRUBIN,URINE SMALL (NEG); CLARITY,URINE CLEAR; COLOR,URINE AMBER; NITRITE,URINE NEGATIVE (NEG); PH,URINE 5.5; PROTEIN,URINE NEGATIVE (NEG-TRACE); UROBILINOGEN,URINE 0.2 mg/dL (0.2 mg/dL)
[2018-05-13 04:56] LABS: BACTERIA,URINE FEW /HPF (0-FEW); HYALINE CASTS, URINE FEW /HPF; RBC,URINE 0 /HPF (0-2); SQUAMOUS EPITHELIAL CELL,UR MOD /LPF
[2018-05-13] MEDS: PIPERACILLIN/TAZOBACTAM 2.25 GM in IV NORMAL SALINE 50ML 50 ML IV SCH ×3 (05:35→20:58)
[2018-05-13] MEDS: HYDROcodone/APAP 5/325MG 1 TAB TABLET PO PRN ×3 (06:40→19:04)
[2018-05-13 08:07] LABS: HEMOGLOBIN 11.7 g/dL (13.0-17.5); RED BLOOD COUNT 3.72 x10^6/uL (4.30-5.70); RED CELL DISTRIBUTION WIDTH 13.2 % (11.5-14.5); WHITE BLOOD COUNT 13.6 x10^3/uL (4.0-11.0)
[2018-05-13] MEDS: LACTOBACILLUS RHAMNOSUS GG 1 CAPSULE. PO SCH ×2 (08:11→20:55)
[2018-05-13] MEDS: SODIUM BICARBONATE 650 MG TABLET. PO SCH ×2 (08:12→20:56)
[2018-05-13] MEDS: CHOLECALCIFEROL (VITAMIN D3) 1,000 UNIT TABLET PO SCH (08:12)
[2018-05-13] MEDS: ASPIRIN ENTERIC COATED 81 MG TABLET.DR. PO SCH (08:12)
[2018-05-13] MEDS: SERTRALINE 50 MG TABLET. PO SCH (08:12)
[2018-05-13] MEDS: CLOPIDOGREL BISULFATE 75 MG TABLET PO SCH (08:12)
[2018-05-13] MEDS: TAMSULOSIN 0.4 MG CAP.ER.24H. PO SCH (08:12)
[2018-05-13] MEDS: INSULIN LISPRO 300 UNITS/3 ML INSULN.PEN. SQ SCH ×3 (08:26→17:15)
--- NOTE | 2018-05-13 08:37 | NUR ---
SW following pt for anticipated dc needs. Chart reviewed. Pt lives at home with spouse and currently with Nash SALIN[facility]. Wound care and ID following pt. JP Daley to order PT/OT to evaluate skilled needs. Will continue to follow.
[2018-05-13] MEDS: BUMETANIDE 1 MG TABLET. PO SCH (09:00)
[2018-05-13] MEDS: metOLazone 2.5 MG TABLET PO SCH (09:00)
[2018-05-13] MEDS: METOPROLOL TART IMMED RELEASE 25 MG TABLET. PO SCH ×2 (09:00→20:56)
--- NOTE | 2018-05-13 09:08 | NUR ---
Patient's blood pressure 77/38 with heart rate 71- spoke to Dr. Mendiola who ordered NS bolus of 1 L over 3 hours.
[2018-05-13] MEDS ORDERED: IV NORMAL SALINE 1000ML BAG 1,000 ML IV ONE (09:15)
[2018-05-13] MEDS: MICAFUNGIN 100 MG in IV DEXTROSE 5% 100ML 100 ML IV SCH (10:43)
--- NOTE | 2018-05-13 11:13 | PDOC ---
SUBJECTIVE ROS Reports feeling better OBJECTIVE Vital Signs Vital Signs Date Time Temp Pulse Resp B/P (MAP) Pulse Ox O2 Delivery O2 Flow Rate FiO2 05/13/18 09:20 80 85/43 (57) 05/13/18 09:19 Room Air 05/13/18 07:00 98.3 20 96 98.3 05/12/18 21:10 3.0 I & 0 Intake and Output 05/13/18 06:59 Intake Total 980 ml Balance 980 ml Intake Oral 980 ml # Voids 3 # Bowel Movements 1 PHYSICAL EXAM Physical Exam GENERAL: NAD, HEENT: OM moist NECK: Supple. LUNGS: Clear to auscultation. HEART: S1 and S2. Pacemaker. ABDOMEN: Obese, soft and nontender EXTREMITIES: No gross edema Rooke boots. RUE-AV fistula - Thrill/Bruit+ SKIN: No rash. coccyx ulcer + DIAGNOSIS/ASSESSMENT Assessment & Plan ESRD- MWF Clinically no indication for HD today Tomorrow as per his schedule Large nonhealing calcaneal wound with suspected osteo on x-ray/exam. -h/o debridement subcutaneous tissue and skin d/evan home on vanc and Augmentin x 3 weeks on 03/27/18 Vascular recommends right below knee amputation Left foot ulcers/Coccyx ulcer Anemia- Hgb stable No indication for KVNG DM II Pacemaker COMMENT/RELEVANT DATA Meds Current Medications Medications (Trade) Dose Ordered Sig/Cherie Start Time Stop Time Status Last Admin Dose Admin Acetaminophen/ Hydrocodone Bitart (Lortab 5/325) 1 tab PRN Q4HRS PRN 05/10/18 08:45 05/13/18 06:40 1 TAB Albumin Human 200 ml @ 200 mls/hr 1X PRN PRN 05/12/18 10:30 05/12/18 16:29 DC Aspirin (Ecotrin) 81 mg DAILYWBKFT 05/10/18 09:00 05/13/18 08:12 81 MG Bumetanide (Bumex) 2 mg DAILY 05/10/18 09:30 05/12/18 09:23 2 MG Clopidogrel Bisulfate (Plavix) 75 mg DAILY 05/10/18 09:00 05/13/18 08:12 75 MG Dextrose (Dextrose 50%-Water Syringe) 12.5 gm PRN Q15MIN PRN 05/12/18 11:45 05/12/18 11:56 12.5 GM Info (PHARMACY MONITORING -- do not chart) 1 each PRN DAILY PRN 05/12/18 10:30 UNV Insulin Glargine (Lantus) 20 units QHS 05/10/18 21:00 05/12/18 21:58 20 UNITS Insulin Human Lispro (HumaLOG) 10 units TIDWMEALS 05/10/18 12:00 05/13/18 08:26 10 UNITS Lactobacillus Rhamnosus (Culturelle) 1 cap BID 05/09/18 21:00 05/13/18 08:11 1 CAP Metolazone (Zaroxolyn) 5 mg DAILY 05/10/18 09:30 05/12/18 09:24 5 MG Metoprolol Tartrate (Lopressor) 25 mg BID 05/10/18 09:00 05/12/18 09:23 25 MG Micafungin Sodium 100 mg/Dextrose 100 ml @ 100 mls/hr Q24H 05/12/18 11:00 05/13/18 10:43 100 MLS/HR Morphine Sulfate (Morphine Sulfate) 2 mg PRN Q2HR PRN 05/09/18 15:15 05/10/18 15:14 DC 05/10/18 06:43 2 MG Ondansetron HCl (Zofran) 4 mg PRN Q8HRS PRN 05/09/18 15:15 05/10/18 15:14 DC Piperacillin Sod/ Tazobactam Sod (Zosyn Per Pharmacy) 1 each PRN DAILY PRN 05/09/18 14:15 Piperacillin Sod/ Tazobactam Sod 2.25 gm/Sodium Chloride 50 ml @ 100 mls/hr Q8HRS 05/09/18 22:00 05/13/18 05:35 100 MLS/HR Sertraline HCl (Zoloft) 100 mg DAILY 05/10/18 09:30 05/13/18 08:12 100 MG Simvastatin (Zocor) 80 mg QHS 05/10/18 21:00 05/12/18 21:49 80 MG Sodium Bicarbonate (Sodium Bicarbonate) 650 mg BID 05/10/18 09:00 05/13/18 08:12 650 MG Sodium Chloride 1,000 ml @ 1,000 mls/hr 1X ONCE 05/13/18 09:15 05/13/18 10:14 DC 05/13/18 09:16 1,000 MLS/HR Sodium Chloride (Normal Saline Flush) 10 ml 1X PRN PRN 05/12/18 10:30 05/12/18 18:00 DC Tamsulosin HCl (Flomax) 0.4 mg DAILY 05/10/18 09:00 05/13/18 08:12 0.4 MG Trazodone HCl (Desyrel) 150 mg QHS 05/10/18 21:00 05/12/18 21:48 150 MG Vancomycin HCl (Vanco Per Pharmacy) 1 each PRN DAILY PRN 05/09/18 14:15 05/12/18 12:40 1 EACH Vancomycin HCl (Vancomycin Random Level) 1 each 1X ONCE 05/12/18 06:00 05/12/18 06:01 DC 05/12/18 06:00 1 EACH Vancomycin HCl 500 mg/Sodium Chloride 100 ml @ 100 mls/hr QMWF@1600 05/12/18 16:00 05/12/18 17:22 100 MLS/HR Vancomycin HCl 2 gm/Sodium Chloride 500 ml @ 250 mls/hr 1X ONCE 05/09/18 15:00 05/09/18 16:59 DC 05/09/18 15:28 250 MLS/HR Vitamin D (Vitamin D3) 1,000 unit DAILY 05/10/18 09:00 05/13/18 08:12 1,000 UNIT Lab Laboratory Tests Test 05/12/18 11:43 05/12/18 16:58 05/12/18 21:07 05/13/18 03:15 Glucose (Fingerstick) 50 mg/dL (70-99) 156 mg/dL (70-99) 235 mg/dL (70-99) Urine Collection Type Unknown Urine Color [place] Urine Clarity Clear Urine pH 5.5 Urine Specific [place] 1.020 Urine Protein Negative mg/dL (NEG-TRACE) Urine Glucose (UA) 100 mg/dL (NEG) Urine Ketones (Stick) Negative mg/dL (NEG) Urine Blood Negative (NEG) Urine Nitrite Negative (NEG) Urine Bilirubin Small (NEG) Urine Urobilinogen Dipstick 0.2 mg/dL (0.2 mg/dL) Urine Leukocyte Esterase Small (NEG) Urine RBC 0 /HPF (0-2) Urine WBC 5-10 /HPF (0-4) Urine Squamous Epithelial Cells Mod /LPF Urine Bacteria Few /HPF (0-FEW) Urine Hyaline Casts Few /HPF Urine Mucus Slight /LPF Test 05/13/18 07:35 05/13/18 07:50 Glucose (Fingerstick) 147 mg/dL (70-99) White Blood Count 13.6 x10^3/uL (4.0-11.0) Red Blood Count 3.72 x10^6/uL (4.30-5.70) Hemoglobin 11.7 g/dL (13.0-17.5) Hematocrit 35.0 % (39.0-53.0) Mean Corpuscular Volume 94 fL (79-100) Mean Corpuscular Hemoglobin 31 pg (25-35) Mean Corpuscular Hemoglobin Concent 33 g/dL (31-37) Red Cell Distribution Width 13.2 % (11.5-14.5) Platelet Count 216 x10^3/uL (140-400) Results All relevant outside records, renal labs, imaging studies, telemetry/EKG's were reviewed. ONDINA YAO MD May 13, 2018 11:13
--- NOTE | 2018-05-13 11:51 | PDOC ---
Infectious Disease Note Subjective Subjective pain better controlled. Accepting he needs surgery Denies chills/aches/N/V/D/SOA Vital Sign Vital Signs Vital Signs Date Time Temp Pulse Resp B/P (MAP) Pulse Ox O2 Delivery O2 Flow Rate FiO2 05/13/18 11:32 Room Air 05/13/18 11:00 98.6 69 20 112/43 (66) 93 98.6 05/12/18 21:10 3.0 Physical Exam PHYSICAL EXAM GENERAL: NAD, coop, in bed HEENT: Pupils are equally round. Normal conjunctivae. Oral cavity: Pharynx pink and moist. NECK: Supple. LUNGS: Clear to auscultation. HEART: S1 and S2. Pacemaker. ABDOMEN: Obese, soft and nontender with bowel sounds present. EXTREMITIES: No gross edema or cyanosis. Rooke boots. RUE-AV fistula unremarkable. SKIN: Warm without generalized rash. coccyx ulcer (pic) NEUROLOGIC: nonfocal responds appropriately. PIV ok Labs Lab Laboratory Tests Test 05/12/18 16:58 05/12/18 21:07 05/13/18 03:15 05/13/18 07:35 Glucose (Fingerstick) 156 mg/dL (70-99) 235 mg/dL (70-99) 147 mg/dL (70-99) Urine Collection Type Unknown Urine Color Gabby Urine Clarity Clear Urine pH 5.5 Urine Specific [place] 1.020 Urine Protein Negative mg/dL (NEG-TRACE) Urine Glucose (UA) 100 mg/dL (NEG) Urine Ketones (Stick) Negative mg/dL (NEG) Urine Blood Negative (NEG) Urine Nitrite Negative (NEG) Urine Bilirubin Small (NEG) Urine Urobilinogen Dipstick 0.2 mg/dL (0.2 mg/dL) Urine Leukocyte Esterase Small (NEG) Urine RBC 0 /HPF (0-2) Urine WBC 5-10 /HPF (0-4) Urine Squamous Epithelial Cells Mod /LPF Urine Bacteria Few /HPF (0-FEW) Urine Hyaline Casts Few /HPF Urine Mucus Slight /LPF Test 05/13/18 07:50 White Blood Count 13.6 x10^3/uL (4.0-11.0) Red Blood Count 3.72 x10^6/uL (4.30-5.70) Hemoglobin 11.7 g/dL (13.0-17.5) Hematocrit 35.0 % (39.0-53.0) Mean Corpuscular Volume 94 fL (79-100) Mean Corpuscular Hemoglobin 31 pg (25-35) Mean Corpuscular Hemoglobin Concent 33 g/dL (31-37) Red Cell Distribution Width 13.2 % (11.5-14.5) Platelet Count 216 x10^3/uL (140-400) Micro Microbiology 05/11/18 Blood Culture - Preliminary, Resulted NO GROWTH AFTER 2 DAYS Objective Assessment Fever - better Leukocytosis - better Large nonhealing calcaneal wound with suspected osteo on x-ray/exam. ESR 76 -h/o debridement subcutaneous tissue and skin, 02/2018. no cultures and CT neg -d/c home on vanc and Augmentin x 3 weeks on 03/27/18. Left foot ulcers Coccyx ulcer PVD DM II CKD/HD Pacemaker h/o MRSA h/o Klebsiella (R amp) Plan Plan of Care Continue vanc and Zosyn, micafungin f/u BC Monitor labs/temp. Local wound care Awaiting vascular follow-up D/w D/w nursing ASHLYN BRADLEY MD May 13, 2018 11:51
--- NOTE | 2018-05-13 14:51 | PDOC ---
Provider Note Provider Note Discussed with patient and their choice to proceed with right Below knee amputation. Discussed risks/benefits of procedure and post op care, They consented. Will schedule for tomorrow morning. Discussed with RN. Miguel Galan PA-C Vascular Surgery MIGUEL GALAN May 13, 2018 14:51
--- NOTE | 2018-05-13 15:23 | NUR ---
Wound Care Wound care follow up for multiple wounds. Pt is scheduled to have BKA tomorrow on right leg, so R foot wounds not assessed due to pain with dressing changes. L foot dressed with xeroform, ABD and kerlix. Recommend to change every 3 days. Coccyx wound dressed with hydrocolloid, foam then larger hydrocolloid. Recommend to change every 3 days. No other wounds noted on full skin inspection. Pt left on left side with rooke boots on. WC will continue to follow for possible changes.
--- NOTE | 2018-05-13 15:42 | NUR ---
SW following pt. PT recommends acute rehab and OT recommends SNU. Pt is scheduled for a procedure tomorrow. SW will hold SNU/Rehab evaluation until after procedure. Will continue to follow.
--- NOTE | 2018-05-13 15:45 | PDOC ---
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 Change from biphasic to monophasic at the right superficial femoral artery to popliteal artery suggests a superficial femoral artery stenosis Decreased velocity in the distal popliteal suggests popliteal stenosis. No flow in the dorsalis pedis on the right suggests occlusion the right anterior tibial. Diabetes type 2 with HX hypoglycemic episodes- Generalized weakness- ESRD on dialysis Saturday, noncompliance x 1 week with dialysis Anemia of ESRD Hypertension controlled Indwelling right HD catheter Right calcaneal wound s/p debridement, excision subcutaneous tissue and skin . Right big toe ulcer - increased redness 2 small ulcers OF left lateral foot. PAD ESRD/HD via AVF History of Present Illness History of Present Illness hypotension today ID consult wound care consult nephrology consult rec. BKA, planned for tomorrow Vitals Vitals Vital Signs Date Time Temp Pulse Resp B/P (MAP) Pulse Ox O2 Delivery O2 Flow Rate FiO2 05/13/18 12:44 Room Air 05/13/18 11:00 98.6 69 20 112/43 (66) 93 98.6 05/12/18 21:10 3.0 Physical Exam Physical Exam GENERAL: NAD, coop, in bed HEENT: Pupils are equally round. Normal conjunctivae. Oral cavity: Pharynx pink and moist. NECK: Supple. LUNGS: Clear to auscultation. HEART: S1 and S2. Pacemaker. ABDOMEN: Obese, soft and nontender with bowel sounds present. EXTREMITIES: No gross edema or cyanosis. Rooke boots. RUE-AV fistula unremarkable. SKIN: Warm without generalized rash. coccyx ulcer (pic) NEUROLOGIC: nonfocal responds appropriately. PIV ok General: Alert, No acute distress Heart: Regular rate Lungs: Clear, Other Abdomen: Soft, No tenderness Extremities: Other (Bilateral foot dressings in place. Refer to yesterday dictation for descripton of ulcers.) Skin: No breakdown Labs LABS Laboratory Tests Test 05/12/18 16:58 05/12/18 21:07 05/13/18 03:15 05/13/18 05:00 Glucose (Fingerstick) 156 mg/dL (70-99) 235 mg/dL (70-99) Urine Collection Type Unknown Urine Color Gabby Urine Clarity Clear Urine pH 5.5 Urine Specific [place] 1.020 Urine Protein Negative mg/dL (NEG-TRACE) Urine Glucose (UA) 100 mg/dL (NEG) Urine Ketones (Stick) Negative mg/dL (NEG) Urine Blood Negative (NEG) Urine Nitrite Negative (NEG) Urine Bilirubin Small (NEG) Urine Urobilinogen Dipstick 0.2 mg/dL (0.2 mg/dL) Urine Leukocyte Esterase Small (NEG) Urine RBC 0 /HPF (0-2) Urine WBC 5-10 /HPF (0-4) Urine Squamous Epithelial Cells Mod /LPF Urine Bacteria Few /HPF (0-FEW) Urine Hyaline Casts Few /HPF Urine Mucus Slight /LPF Nasal Screen MRSA (PCR) Negative (Negative) Test 05/13/18 07:35 05/13/18 07:50 Glucose (Fingerstick) 147 mg/dL (70-99) White Blood Count 13.6 x10^3/uL (4.0-11.0) Red Blood Count 3.72 x10^6/uL (4.30-5.70) Hemoglobin 11.7 g/dL (13.0-17.5) Hematocrit 35.0 % (39.0-53.0) Mean Corpuscular Volume 94 fL (79-100) Mean Corpuscular Hemoglobin 31 pg (25-35) Mean Corpuscular Hemoglobin Concent 33 g/dL (31-37) Red Cell Distribution Width 13.2 % (11.5-14.5) Platelet Count 216 x10^3/uL (140-400) Review of Systems Review of Systems no n/v/d feels improved Assessment and Plan Assessmemt and Plan Problems Medical Problems: (1) Open wound of right foot Status: Acute (2) Osteomyelitis Status: Acute Comment Review of Relevant I have reviewed the following items sukumar (where applicable) has been applied. Labs Laboratory Tests Test 05/11/18 16:26 05/11/18 20:13 05/12/18 06:15 05/12/18 07:55 Glucose (Fingerstick) 262 mg/dL (70-99) 156 mg/dL (70-99) 103 mg/dL (70-99) White Blood Count 14.1 x10^3/uL (4.0-11.0) Red Blood Count 3.55 x10^6/uL (4.30-5.70) Hemoglobin 11.2 g/dL (13.0-17.5) Hematocrit 33.7 % (39.0-53.0) Mean Corpuscular Volume 95 fL (79-100) Mean Corpuscular Hemoglobin 32 pg (25-35) Mean Corpuscular Hemoglobin Concent 33 g/dL (31-37) Red Cell Distribution Width 13.3 % (11.5-14.5) Platelet Count 202 x10^3/uL (140-400) Neutrophils (%) (Auto) 72 % (31-73) Lymphocytes (%) (Auto) 15 % (24-48) Monocytes (%) (Auto) 8 % (0-9) Eosinophils (%) (Auto) 5 % (0-3) Basophils (%) (Auto) 1 % (0-3) Neutrophils # (Auto) 10.1 x10^3uL (1.8-7.7) Lymphocytes # (Auto) 2.2 x10^3/uL (1.0-4.8) Monocytes # (Auto) 1.1 x10^3/uL (0.0-1.1) Eosinophils # (Auto) 0.7 x10^3/uL (0.0-0.7) Basophils # (Auto) 0.1 x10^3/uL (0.0-0.2) Sodium Level 133 mmol/L (136-145) Potassium Level 4.2 mmol/L (3.5-5.1) Chloride Level 96 mmol/L (98-107) Carbon Dioxide Level 26 mmol/L (21-32) Anion Gap 11 (6-14) Blood Urea Nitrogen 55 mg/dL (8-26) Creatinine 3.5 mg/dL (0.7-1.3) Estimated GFR (Cockcroft-Gault) 17.1 Glucose Level 133 mg/dL (70-99) Calcium Level 8.6 mg/dL (8.5-10.1) Vancomycin Level Trough 15.6 mcg/mL (10.0-20.0) Vancomycin Last Dose Date 05/09/18 Vancomycin Last Dose Time 1528 Test 05/12/18 11:43 05/12/18 16:58 05/12/18 21:07 05/13/18 03:15 Glucose (Fingerstick) 50 mg/dL (70-99) 156 mg/dL (70-99) 235 mg/dL (70-99) Urine Collection Type Unknown Urine Color Gabby Urine Clarity Clear Urine pH 5.5 Urine Specific [place] 1.020 Urine Protein Negative mg/dL (NEG-TRACE) Urine Glucose (UA) 100 mg/dL (NEG) Urine Ketones (Stick) Negative mg/dL (NEG) Urine Blood Negative (NEG) Urine Nitrite Negative (NEG) Urine Bilirubin Small (NEG) Urine Urobilinogen Dipstick 0.2 mg/dL (0.2 mg/dL) Urine Leukocyte Esterase Small (NEG) Urine RBC 0 /HPF (0-2) Urine WBC 5-10 /HPF (0-4) Urine Squamous Epithelial Cells Mod /LPF Urine Bacteria Few /HPF (0-FEW) Urine Hyaline Casts Few /HPF Urine Mucus Slight /LPF Test 05/13/18 05:00 05/13/18 07:35 05/13/18 07:50 Nasal Screen MRSA (PCR) Negative (Negative) Glucose (Fingerstick) 147 mg/dL (70-99) White Blood Count 13.6 x10^3/uL (4.0-11.0) Red Blood Count 3.72 x10^6/uL (4.30-5.70) Hemoglobin 11.7 g/dL (13.0-17.5) Hematocrit 35.0 % (39.0-53.0) Mean Corpuscular Volume 94 fL (79-100) Mean Corpuscular Hemoglobin 31 pg (25-35) Mean Corpuscular Hemoglobin Concent 33 g/dL (31-37) Red Cell Distribution Width 13.2 % (11.5-14.5) Platelet Count 216 x10^3/uL (140-400) Laboratory Tests Test 05/12/18 16:58 05/12/18 21:07 05/13/18 03:15 05/13/18 05:00 Glucose (Fingerstick) 156 mg/dL (70-99) 235 mg/dL (70-99) Urine Collection Type Unknown Urine Color Gabby Urine Clarity Clear Urine pH 5.5 Urine Specific [place] 1.020 Urine Protein Negative mg/dL (NEG-TRACE) Urine Glucose (UA) 100 mg/dL (NEG) Urine Ketones (Stick) Negative mg/dL (NEG) Urine Blood Negative (NEG) Urine Nitrite Negative (NEG) Urine Bilirubin Small (NEG) Urine Urobilinogen Dipstick 0.2 mg/dL (0.2 mg/dL) Urine Leukocyte Esterase Small (NEG) Urine RBC 0 /HPF (0-2) Urine WBC 5-10 /HPF (0-4) Urine Squamous Epithelial Cells Mod /LPF Urine Bacteria Few /HPF (0-FEW) Urine Hyaline Casts Few /HPF Urine Mucus Slight /LPF Nasal Screen MRSA (PCR) Negative (Negative) Test 05/13/18 07:35 05/13/18 07:50 Glucose (Fingerstick) 147 mg/dL (70-99) White Blood Count 13.6 x10^3/uL (4.0-11.0) Red Blood Count 3.72 x10^6/uL (4.30-5.70) Hemoglobin 11.7 g/dL (13.0-17.5) Hematocrit 35.0 % (39.0-53.0) Mean Corpuscular Volume 94 fL (79-100) Mean Corpuscular Hemoglobin 31 pg (25-35) Mean Corpuscular Hemoglobin Concent 33 g/dL (31-37) Red Cell Distribution Width 13.2 % (11.5-14.5) Platelet Count 216 x10^3/uL (140-400) Microbiology 05/11/18 Blood Culture - Preliminary, Resulted NO GROWTH AFTER 2 DAYS Medications Current Medications Vancomycin HCl (Vanco Per Pharmacy) 1 each PRN DAILY PRN MC SEE COMMENTS Last administered on 05/12/18at 12:40; Start 05/09/18 at 14:15 Piperacillin Sod/ Tazobactam Sod (Zosyn Per Pharmacy) 1 each PRN DAILY PRN MC SEE COMMENTS; Start 05/09/18 at 14:15 Piperacillin Sod/ Tazobactam Sod 2.25 gm/Sodium Chloride 50 ml @ 100 mls/hr 1X ONCE IV Last administered on 05/09/18at 14:52; Start 05/09/18 at 14:15; Stop 05/09/18 at 14:44; Status DC Vancomycin HCl 2 gm/Sodium Chloride 500 ml @ 250 mls/hr 1X ONCE IV Last administered on 05/09/18at 15:28; Start 05/09/18 at 15:00; Stop 05/09/18 at 16:59 ; Status DC Ondansetron HCl (Zofran) 4 mg PRN Q8HRS PRN IV NAUSEA/VOMITING; Start 05/09/18 at 15:15; Stop 05/10/18 at 15:14; Status DC Morphine Sulfate (Morphine Sulfate) 2 mg PRN Q2HR PRN IV PAIN Last administered on 05/10/18 06:43; Start 05/09/18 at 15:15; Stop 05/10/18 at 15:14 ; Status DC Piperacillin Sod/ Tazobactam Sod 2.25 gm/Sodium Chloride 50 ml @ 100 mls/hr Q8HRS IV Last administered on 05/13/18 14:09; Start 05/09/18 at 22:00 Vancomycin HCl (Vancomycin Random Level) 1 each 1X ONCE MC Last administered on 05/12/18 06:00; Start 05/12/18 at 06:00; Stop 05/12/18 at 06:01; Status DC Lactobacillus Rhamnosus (Culturelle) 1 cap BID PO Last administered on 08:11; Start 05/09/18 at 21:00 Aspirin (Ecotrin) 81 mg DAILYWBKFT PO Last administered on 05/13/18 08:12; Start 05/10/18 at 09:00 Vitamin D (Vitamin D3) 1,000 unit DAILY PO Last administered on 05/13/18 08:12 ; Start 05/10/18 at 09:00 Clopidogrel Bisulfate (Plavix) 75 mg DAILY PO Last administered on 05/13/18 08 :12; Start 05/10/18 at 09:00 Acetaminophen/ Hydrocodone Bitart (Lortab 5/325) 1 tab PRN Q4HRS PRN PO pain MILD TO MOD Last administered on 05/13/18 11:32; Start 05/10/18 at 08:45 Insulin Glargine (Lantus) 20 units QHS SQ Last administered on 05/12/18 21:58 ; Start 05/10/18 at 21:00 Metoprolol Tartrate (Lopressor) 25 mg BID PO Last administered on 05/12/18 09: 23; Start 05/10/18 at 09:00 Sodium Bicarbonate (Sodium Bicarbonate) 650 mg BID PO Last administered on 05/13 08:12; Start 05/10/18 at 09:00 Tamsulosin HCl (Flomax) 0.4 mg DAILY PO Last administered on 05/13/18 08:12; Start 05/10/18 at 09:00 Trazodone HCl (Desyrel) 25 mg PRN QHS PRN PO INSOMNIA; Start 05/10/18 at 08:45 Trazodone HCl (Desyrel) 150 mg QHS PO Last administered on 05/12/18at 21:48; Start 05/10/18 at 21:00 Bumetanide (Bumex) 2 mg DAILY PO Last administered on 05/12/18 09:23; Start at 09:30 Insulin Human Lispro (HumaLOG) 10 units TIDWMEALS SQ Last administered on 12:12; Start 05/10/18 at 12:00 Metolazone (Zaroxolyn) 5 mg DAILY PO Last administered on 05/12/18 09:24; Start 05/10/18 at 09:30 Simvastatin (Zocor) 80 mg QHS PO Last administered on 05/12/18at 21:49; Start at 21:00 Sertraline HCl (Zoloft) 100 mg DAILY PO Last administered on 05/13/18 08:12; Start 05/10/18 at 09:30 Sodium Chloride 1,000 ml @ 1,000 mls/hr Q1H PRN IV hypotension; Start 05/10/18 at 10:59; Stop 05/10/18 at 16:58; Status DC Sodium Chloride 1,000 ml @ 400 mls/hr Q2H30M PRN IV PATENCY; Start 05/10/18 at 10:59; Stop 05/10/18 at 22:58; Status DC Info (PHARMACY MONITORING -- do not chart) 1 each PRN DAILY PRN MC SEE COMMENTS ; Start 05/10/18 at 11:00 Info (PHARMACY MONITORING -- do not chart) 1 each PRN DAILY PRN MC SEE COMMENTS ; Start 05/10/18 at 11:00; Status UNV Vancomycin HCl 500 mg/Sodium Chloride 100 ml @ 100 mls/hr 1X ONCE IV Last administered on 05/11/18at 14:31; Start 05/11/18 at 15:00; Stop 05/11/18 at 15:59 ; Status DC Sodium Chloride 1,000 ml @ 1,000 mls/hr Q1H PRN IV hypotension; Start 05/12/18 at 10:30; Stop 05/12/18 at 19:02; Status DC Albumin Human 200 ml @ 200 mls/hr 1X PRN PRN IV Hypotension; Start 05/12/18 at 10:30; Stop 05/12/18 at 16:29; Status DC Sodium Chloride (Normal Saline Flush) 10 ml 1X PRN PRN IV AP catheter pack; Start 05/12/18 at 10:30; Stop 05/12/18 at 18:00; Status DC Sodium Chloride (Normal Saline Flush) 10 ml 1X PRN PRN IV SAP BW ARCHITECT catheter pack; Start 05/12/18 at 10:30; Stop 05/12/18 at 18:00; Status DC Sodium Chloride 1,000 ml @ 400 mls/hr Q2H30M PRN IV PATENCY; Start 05/12/18 at 10:30; Stop 05/12/18 at 18:00; Status DC Info (PHARMACY MONITORING -- do not chart) 1 each PRN DAILY PRN MC SEE COMMENTS ; Start 05/12/18 at 10:30; Status UNV Info (PHARMACY MONITORING -- do not chart) 1 each PRN DAILY PRN MC SEE COMMENTS ; Start 05/12/18 at 10:30; Status UNV Micafungin Sodium 100 mg/Dextrose 100 ml @ 100 mls/hr Q24H IV Last administered on 05/13/18at 10:43; Start 05/12/18 at 11:00 Dextrose (Dextrose 50%-Water Syringe) 12.5 gm PRN Q15MIN PRN IV SEE COMMENTS Last administered on 05/12/18at 11:56; Start 05/12/18 at 11:45 Vancomycin HCl 500 mg/Sodium Chloride 100 ml @ 100 mls/hr QMWF@1600 IV Last administered on 05/12/18at 17:22; Start 05/12/18 at 16:00 Sodium Chloride 1,000 ml @ 1,000 mls/hr 1X ONCE IV Last administered on at 09:16; Start 05/13/18 at 09:15; Stop 05/13/18 at 10:14; Status DC Ondansetron HCl (Zofran) 4 mg PRN Q6HRS PRN IV NAUSEA/VOMITING; Start 05/14/18 at 07:00; Stop 05/15/18 at 06:59 Fentanyl Citrate (Fentanyl 2ml Vial) 25 mcg PRN Q5MIN PRN IV MILD PAIN; Start 05/14/18 at 07:00; Stop 05/15/18 at 06:59 Fentanyl Citrate (Fentanyl 2ml Vial) 50 mcg PRN Q5MIN PRN IV MODERATE TO SEVERE PAIN; Start 05/14/18 at 07:00; Stop 05/15/18 at 06:59 Morphine Sulfate (Morphine Sulfate) 1 mg PRN Q10MIN PRN IV SEVERE PAIN; Start 05/14/18 at 07:00; Stop 05/15/18 at 06:59 Ringer's Solution 1,000 ml @ 30 mls/hr Q24H IV ; Start 05/14/18 at 07:00; Stop 05/14/18 at 18:59 Lidocaine HCl (Xylocaine-Mpf 1% 2ml Vial) 2 ml PRN 1X PRN ID IV START; Start at 07:00; Stop 05/15/18 at 06:59 Hydromorphone HCl (Dilaudid) 0.5 mg PRN Q10MIN PRN IV SEV PAIN, Second choice; Start 05/14/18 at 07:00; Stop 05/15/18 at 06:59 Prochlorperazine Edisylate (Compazine) 5 mg PACU PRN PRN IV NAUSEA, MRX1; Start 05/14/18 at 07:00; Stop 05/15/18 at 06:59 Active Scripts Active Lantus Solostar (Insulin Glargine,Hum.rec.anlog) 100 Unit/1 Ml Insuln.pen 20 Units SQ QHS 30 Days Vancomycin Hcl 1 Gm Vial 1 Each MC MWF WITH DIALYSIS PRN 14 Days [place] 5-325 Tablet (Acetaminophen/Hydrocodone Bitart) 1 Each Tablet 1-2 Tab PO Q4-6HRS 6 Days Aspirin Ec (Aspirin) 81 Mg Tablet.dr 81 Mg PO DAILYWBKFT 30 Days Flomax (Tamsulosin Hcl) 0.4 Mg Cap.er.24h 0.4 Mg PO DAILY Reported Trazodone Hcl 50 Mg Tablet 0.5 Tab PO PRN 1X Trazodone Hcl 50 Mg Tablet 3 Tab PO QHS Lisinopril 20 Mg Tablet 1 Tab PO DAILY Crestor (Rosuvastatin Calcium) 20 Mg Tablet 0.5 Tab PO DAILY Plavix (Clopidogrel Bisulfate) 75 Mg Tablet 75 Mg PO DAILY Sodium Bicarbonate 650 Mg Tablet 650 Mg PO BID Sertraline Hcl 100 Mg Tablet 100 Mg PO DAILY Novolog (Insulin Aspart) 100 Unit/1 Ml Cartridge 10 Unit SQ TIDAC Metoprolol Tartrate 25 Mg Tablet 1 Tab PO BID Metolazone 5 Mg Tablet 5 Mg PO DAILY Vitamin D3 (Cholecalciferol (Vitamin D3)) 1,000 Unit Tablet 1 Tab PO DAILY Bumetanide 2 Mg Tablet 1 Tab PO DAILY Vitals/I & O Vital Sign - Last 24 Hours 05/12/18 05/12/18 05/12/18 05/12/18 19:45 20:00 20:10 20:11 Temp 100.2 100.2 100.2 100.2 Pulse 77 74 Resp 20 20 B/P (MAP) 96/41 (59) Pulse Ox 92 95 92 O2 Delivery Room Air Room Air Room Air Room Air 05/12/18 05/12/18 05/13/18 05/13/18 21:10 22:35 02:55 06:40 Temp 98.4 98.6 98.4 98.6 Pulse 57 73 Resp 18 18 18 20 B/P (MAP) 101/45 (63) 121/46 (71) Pulse Ox 93 92 93 93 O2 Delivery Room Air Room Air Room Air O2 Flow Rate 3.0 05/13/18 05/13/18 05/13/18 05/13/18 07:00 07:01 08:00 09:00 Temp 98.3 98.3 Pulse 68 71 71 Resp 20 B/P (MAP) 73/39 (50) 77/38 (51) 77/38 Pulse Ox 96 O2 Delivery Room Air Room Air 05/13/18 05/13/18 05/13/18 05/13/18 09:20 11:00 11:32 12:44 Temp 98.6 98.6 Pulse 80 69 Resp 20 B/P (MAP) 85/43 (57) 112/43 (66) Pulse Ox 93 O2 Delivery Room Air Room Air Room Air Intake and Output 05/12/18 05/12/18 05/13/18 15:00 23:00 07:00 Intake Total 540 ml 320 ml 170 ml Balance 540 ml 320 ml 170 ml Nutrition Consultation Dietary Evaluation: Recommendations by RD: Increase Calorie Intake, Protein supplementation, Add supplement feedings Comments: Pt. states he uses an adaptive spoon at home due to difficulty holding onto spoon when feeding himself. Notified OT. Expected Outcomes/Goals: P.O. intake >75% Supplement intake Continue Renal/ADA diet Malnutrition Findings: Food and Nutrition Intake (Mod: <75% est energy req 7days Body Fat Depletion (Non Severe: Mild Depletion Weight Status: Obese VICENTE FLORES MD May 13, 2018 15:45
[2018-05-13] MEDS: traZODone 50 MG TABLET. PO SCH (20:57)
[2018-05-13] MEDS: SIMVASTATIN 40 MG TABLET. PO SCH (20:57)
[2018-05-13] MEDS: INSULIN GLARGINE 300 UNITS/3 ML INSULN.PEN. SQ SCH (21:07)
[2018-05-14] VITALS (16 sets, daily range): BP systolic 73–128; BP diastolic 35–77
[2018-05-14] MEDS: HYDROcodone/APAP 5/325MG 1 TAB TABLET PO PRN (03:31)
[2018-05-14] MEDS: PIPERACILLIN/TAZOBACTAM 2.25 GM in IV NORMAL SALINE 50ML 50 ML IV SCH ×3 (05:38→21:33)
[2018-05-14] MEDS ORDERED: LIDOCAINE 2% PF 5 ML VIAL. ONE (06:38)
[2018-05-14] MEDS ORDERED: ONDANSETRON PF 4 MG/2 ML VIAL. ONE (06:38)
[2018-05-14] MEDS ORDERED: PROPOFOL 20 ML IV ONE (06:38)
[2018-05-14] MEDS ORDERED: DEXAMETHASONE SOD PHOS 20 MG/5 ML VIAL. ONE (06:38)
[2018-05-14] MEDS ORDERED: ONDANSETRON PF 4 MG/2 ML VIAL. IV PRN (07:00)
[2018-05-14] MEDS ORDERED: MORPHINE SULFATE 4 MG/ML VIAL. IV PRN (07:00)
[2018-05-14] MEDS ORDERED: IV RINGERS,LACTATED 1000ML 1,000 ML IV SCH (07:00)
[2018-05-14] MEDS ORDERED: HYDROmorphone 2 MG/ML VIAL IV PRN (07:00)
[2018-05-14] MEDS ORDERED: LIDOCAINE 1% PF 2 ML VIAL. ID PRN (07:00)
[2018-05-14] MEDS ORDERED: PROCHLORPERAZINE 10 MG/2 ML VIAL. IV PRN (07:00)
[2018-05-14] MEDS ORDERED: fentaNYL PF VIAL 100 MCG/2 ML VIAL IV PRN (07:00)
[2018-05-14] MEDS ORDERED: BACITRACIN 50,000 UNIT VIAL. IRR ONE (07:21)
[2018-05-14] MEDS ORDERED: fentaNYL PF VIAL 100 MCG/2 ML VIAL ONE ×3 (07:21→09:35)
[2018-05-14] MEDS ORDERED: PHENYLEPHRINE 10 MG/ML VIAL. ONE (07:49)
[2018-05-14] MEDS: INSULIN LISPRO 300 UNITS/3 ML INSULN.PEN. SQ SCH ×3 (08:00→17:17)
[2018-05-14] MEDS: ASPIRIN ENTERIC COATED 81 MG TABLET.DR. PO SCH (08:00)
[2018-05-14] MEDS: BUMETANIDE 1 MG TABLET. PO SCH (08:16)
[2018-05-14] MEDS: TAMSULOSIN 0.4 MG CAP.ER.24H. PO SCH (08:17)
[2018-05-14] MEDS: CLOPIDOGREL BISULFATE 75 MG TABLET PO SCH (08:17)
[2018-05-14] MEDS: LACTOBACILLUS RHAMNOSUS GG 1 CAPSULE. PO SCH ×2 (08:17→21:31)
[2018-05-14] MEDS: SERTRALINE 50 MG TABLET. PO SCH (08:17)
[2018-05-14] MEDS: METOPROLOL TART IMMED RELEASE 25 MG TABLET. PO SCH ×2 (08:17→21:32)
[2018-05-14] MEDS: metOLazone 2.5 MG TABLET PO SCH (08:17)
[2018-05-14] MEDS: CHOLECALCIFEROL (VITAMIN D3) 1,000 UNIT TABLET PO SCH (08:17)
[2018-05-14] MEDS: SODIUM BICARBONATE 650 MG TABLET. PO SCH ×2 (08:17→21:31)
[2018-05-14] MEDS ORDERED: TOBRAMYCIN POWDER 1.2 GM VIAL. ONE (08:24)
[2018-05-14] MEDS ORDERED: SEVOFLURANE > 120 MINUTES. IH ONE (08:28)
[2018-05-14] MEDS ORDERED: SEVOFLURANE 61 TO 120 MINUTES. IH ONE (08:28)
[2018-05-14] MEDS ORDERED: 0.9 % SODIUM CHLORIDE 20 ML VIAL. IJ ONE (08:45)
--- NOTE | 2018-05-14 08:59 | PDOC ---
BRIEF OPERATIVE NOTE Date: May 14, 2018 Pre-Op Diagnosis PVD with non-healing right heel ulcer Post-Op Diagnosis same Procedure Performed Right below knee amputation Surgeon Dr. Walters Van Driver Helper Marianne Ariza NP Anesthesia Type: General Blood Loss 200cc Specimens Obtained right leg Findings necrotic heel Complications none Operative Note see dictated note MARIANNE ARIZA MANAGER MARKETING May 14, 2018 08:59
[2018-05-14] MEDS ORDERED: oxyCODONE/APAP 5/325 1 TAB TABLET PO PRN (09:00)
[2018-05-14] MEDS: fentaNYL PF VIAL 100 MCG/2 ML VIAL IV PRN ×4 (09:15→09:55)
--- NOTE | 2018-05-14 09:21 | PDOC ---
Infectious Disease Note Subjective Subjective A little pain but controlled. Denies chills/aches/N/V/D/SOA/Rash Vital Sign Vital Signs Vital Signs Date Time Temp Pulse Resp B/P (MAP) Pulse Ox O2 Delivery O2 Flow Rate FiO2 05/14/18 09:15 16 99 Simple Mask 8.0 05/14/18 06:40 98.8 61 126/55 98.8 Physical Exam PHYSICAL EXAM GENERAL: NAD, coop, in bed HEENT: Pupils are equally round. Normal conjunctivae. Oral cavity: Pharynx pink and moist. NECK: Supple. LUNGS: Clear to auscultation. HEART: S1 and S2. Pacemaker. ABDOMEN: Obese, soft and nontender with bowel sounds present. EXTREMITIES: No gross edema or cyanosis. R BKA dressed. RUE-AV fistula unremarkable. SKIN: Warm without generalized rash. coccyx ulcer (pic) NEUROLOGIC: nonfocal responds appropriately. PIV ok Labs Lab Laboratory Tests Test 05/13/18 10:36 05/13/18 16:51 05/13/18 20:11 05/14/18 06:42 Glucose (Fingerstick) 159 mg/dL (70-99) 204 mg/dL (70-99) 145 mg/dL (70-99) 84 mg/dL (70-99) Test 05/14/18 09:11 Glucose (Fingerstick) 86 mg/dL (70-99) Micro Microbiology 05/11/18 Blood Culture - Preliminary, Resulted NO GROWTH AFTER 2 DAYS Objective Assessment Fever - better Leukocytosis - better - but now s/p BKA and Dexamethasone 05/14 S/p Right BKA 05/14 am Large nonhealing calcaneal wound with suspected osteo on x-ray/exam. ESR 76 -h/o debridement subcutaneous tissue and skin, 02/2018. no cultures and CT neg -d/c home on vanc and Augmentin x 3 weeks on 03/27/18. Left foot ulcers Coccyx ulcer PVD DM II CKD/HD Pacemaker h/o MRSA h/o Klebsiella (R amp) Plan Plan of Care Continue vanc and Zosyn, micafungin - taper to po for LLE f/u BC Monitor labs/temp. Local wound care D/w Dr. Walters D/w nursing ASHLYN BRADLEY MD May 14, 2018 09:21
--- NOTE | 2018-05-14 09:37 | OP ---
DATE OF SURGERY: 05/14/2018 SURGEON: Yesy Walters MD. SALESPERSON [employer]ILDREN'[employer] SHOES: Elma Hewitt. 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 OPERATION PERFORMED: Right [id number] closed amputation. BLOOD LOSS: 200 mL. ANESTHESIA USED: General anesthesia. INDICATIONS: The patient is a 77-year-old male with a long history of peripheral arterial disease in his lower extremities. He has developed extensive gangrene of his right heel and forefoot, which despite wound care has not healed and has exposure of the calcaneus bone suggestive of osteomyelitis. Dr. Sotelo recommended a right [id number] amputation, which I agree with. Informed consent was obtained from the patient and the family including the risks of bleeding, infection, wound healing difficulties and need for long-term wound care versus a possible above-knee amputation in the future if this does not heal. DETAILS OF THE OPERATION: The patient was brought into the operating room and placed on table in supine position. He received general anesthesia, monitored throughout the case by the anesthesiologist. His right lower extremity from the groin down to the ankle was prepped and draped circumferentially by normal sterile fashion. His right foot was placed in an impervious stockinette with Coban over top of it and he was draped by normal sterile fashion. We used a sterile tourniquet in the thigh. An Esmarch wrap was used to exsanguinate the blood from his foot up to the thigh and then the tourniquet was inflated. The right below the knee amputation was performed with a posterior flap type incision. We made a transverse incision around the anterior surface of the mid lower leg at the normal location and then an incision down the posterior flap. The subcutaneous tissue and fascial layers were divided with electrocautery along with all muscle layers. We dissected down to the tibia bone on the anterior surface and medially. We dissected down through muscle and the medial compartment down to the popliteal vessels. The popliteal artery and vein were dissected out and clamped proximally and distally. A 0 silk suture ligatures were used to ligate the arteries proximally and distally along with the vein. We continued dissection laterally down to the anterior tibial artery. It was also clamped proximally and distally and suture ligated with 0 silk sutures and divided. We dissected out the tibia circumferentially and elevated it under the fascial layer proximally within the wound. I then dissected out the fibula bone in the lateral region of the leg and elevated it proximally as well. All anterior muscular layers were divided with electrocautery. Venous branches were clipped and divided throughout the dissection. We then used the bone saw and cut the tibia proximal within the wound in an angled fashion to create no tension on the anterior skin wall. We divided the bone. We then used the cutter to divide the fibula. Bone elevator was used. We divided the posterior muscle layers with electrocautery and then removed the leg. 0 silk sutures were used to ligate bleeding identified vessels. We then let the tourniquet down. We explored the wound. All areas of bleeding were ligated with silk sutures or clips or electrocautery. We continued to evaluate the wound meticulously until there was good hemostasis throughout the wound bed. The arterial bundles were well ligated. The wound was irrigated with copious amounts of antibiotic solution. When there was good hemostasis, we left bone wax over each bone stump. We left a 10-Nigerian MANOLO flat drain within the wound through a separate medial incision and cut it to length. There was very good hemostasis. We closed the posterior flap up to the anterior incision closing the fascial layers with interrupted 2-0 Vicryl sutures along the length of the incision. We ensured there were no gaps between the closure. It was very tight closure. We then closed the skin with a running 3-0 nylon sutures. MANOLO bulb was left to the drain. We washed the leg, placed Xeroform over the incision along with 4 x 4 gauze, Kerlix wraps and an Fran bandage. He tolerated the surgery with no immediate complications. YESY WALTERS MD DR: BARBARA/thais JOB#: [id number] / [id number]
--- NOTE | 2018-05-14 10:07 | PDOC ---
PROGRESS NOTES Chief Complaint Chief Complaint DM DEEP complicated wound/HEEL right foot suspect osteomyelitis, now to BKA severe pvd Severe trifurcation disease on the left with no significant flow noted distally except for in the peroneal artery. Change from biphasic to monophasic at the right superficial femoral artery to popliteal artery suggests a superficial femoral artery stenosis Decreased velocity in the distal popliteal suggests popliteal stenosis. No flow in the dorsalis pedis on the right suggests occlusion the right anterior tibial. Diabetes type 2 with HX hypoglycemic episodes- Generalized weakness- ESRD on dialysis Saturday, noncompliance x 1 week with dialysis Anemia of ESRD Hypertension controlled Indwelling right HD catheter Right calcaneal wound s/p debridement, excision subcutaneous tissue and skin . Right big toe ulcer - increased redness 2 small ulcers OF left lateral foot. PAD ESRD/HD via AVF History of Present Illness History of Present Illness wound care consult following BKA, Dr. Walters, this AM, went well may be able to DC at POD #2, to snu, soc service consulted Vitals Vitals Vital Signs Date Time Temp Pulse Resp B/P (MAP) Pulse Ox O2 Delivery O2 Flow Rate FiO2 05/14/18 09:42 16 94 Nasal Cannula 2.0 05/14/18 06:40 98.8 61 126/55 98.8 Physical Exam Physical Exam GENERAL: NAD, coop, in bed HEENT: Pupils are equally round. Normal conjunctivae. Oral cavity: Pharynx pink and moist. NECK: Supple. LUNGS: Clear to auscultation. HEART: S1 and S2. Pacemaker. ABDOMEN: Obese, soft and nontender with bowel sounds present. EXTREMITIES: No gross edema or cyanosis. Rooke boots. RUE-AV fistula unremarkable. SKIN: Warm without generalized rash. coccyx ulcer (pic) NEUROLOGIC: nonfocal responds appropriately. PIV ok General: Alert, No acute distress Heart: Regular rate Lungs: Clear, Other Abdomen: Soft, No tenderness Extremities: Other (Bilateral foot dressings in place. Refer to yesterday dictation for descripton of ulcers.) Skin: No breakdown Labs LABS Laboratory Tests Test 05/13/18 10:36 05/13/18 16:51 05/13/18 20:11 05/14/18 06:42 Glucose (Fingerstick) 159 mg/dL (70-99) 204 mg/dL (70-99) 145 mg/dL (70-99) 84 mg/dL (70-99) Test 05/14/18 09:11 Glucose (Fingerstick) 86 mg/dL (70-99) Assessment and Plan Assessmemt and Plan Problems Medical Problems: (1) Open wound of right foot Status: Acute (2) Osteomyelitis Status: Acute Comment Review of Relevant I have reviewed the following items sukumar (where applicable) has been applied. Labs Laboratory Tests Test 05/12/18 11:43 05/12/18 16:58 05/12/18 21:07 05/13/18 03:15 Glucose (Fingerstick) 50 mg/dL (70-99) 156 mg/dL (70-99) 235 mg/dL (70-99) Urine Collection Type Unknown Urine Color Gabby Urine Clarity Clear Urine pH 5.5 Urine Specific [place] 1.020 Urine Protein Negative mg/dL (NEG-TRACE) Urine Glucose (UA) 100 mg/dL (NEG) Urine Ketones (Stick) Negative mg/dL (NEG) Urine Blood Negative (NEG) Urine Nitrite Negative (NEG) Urine Bilirubin Small (NEG) Urine Urobilinogen Dipstick 0.2 mg/dL (0.2 mg/dL) Urine Leukocyte Esterase Small (NEG) Urine RBC 0 /HPF (0-2) Urine WBC 5-10 /HPF (0-4) Urine Squamous Epithelial Cells Mod /LPF Urine Bacteria Few /HPF (0-FEW) Urine Hyaline Casts Few /HPF Urine Mucus Slight /LPF Test 05/13/18 05:00 05/13/18 07:35 05/13/18 07:50 05/13/18 10:36 Nasal Screen MRSA (PCR) Negative (Negative) Glucose (Fingerstick) 147 mg/dL (70-99) 159 mg/dL (70-99) White Blood Count 13.6 x10^3/uL (4.0-11.0) Red Blood Count 3.72 x10^6/uL (4.30-5.70) Hemoglobin 11.7 g/dL (13.0-17.5) Hematocrit 35.0 % (39.0-53.0) Mean Corpuscular Volume 94 fL (79-100) Mean Corpuscular Hemoglobin 31 pg (25-35) Mean Corpuscular Hemoglobin Concent 33 g/dL (31-37) Red Cell Distribution Width 13.2 % (11.5-14.5) Platelet Count 216 x10^3/uL (140-400) Test 05/13/18 16:51 05/13/18 20:11 05/14/18 06:42 05/14/18 09:11 Glucose (Fingerstick) 204 mg/dL (70-99) 145 mg/dL (70-99) 84 mg/dL (70-99) 86 mg/dL (70-99) Laboratory Tests Test 05/13/18 10:36 05/13/18 16:51 05/13/18 20:11 05/14/18 06:42 Glucose (Fingerstick) 159 mg/dL (70-99) 204 mg/dL (70-99) 145 mg/dL (70-99) 84 mg/dL (70-99) Test 05/14/18 09:11 Glucose (Fingerstick) 86 mg/dL (70-99) Microbiology 05/11/18 Blood Culture - Preliminary, Resulted NO GROWTH AFTER 2 DAYS Medications Current Medications Vancomycin HCl (Vanco Per Pharmacy) 1 each PRN DAILY PRN MC SEE COMMENTS Last administered on 05/12/18at 12:40; Start 05/09/18 at 14:15 Piperacillin Sod/ Tazobactam Sod (Zosyn Per Pharmacy) 1 each PRN DAILY PRN MC SEE COMMENTS; Start 05/09/18 at 14:15 Piperacillin Sod/ Tazobactam Sod 2.25 gm/Sodium Chloride 50 ml @ 100 mls/hr 1X ONCE IV Last administered on 05/09/18at 14:52; Start 05/09/18 at 14:15; Stop 05/09/18 at 14:44; Status DC Vancomycin HCl 2 gm/Sodium Chloride 500 ml @ 250 mls/hr 1X ONCE IV Last administered on 05/09/18at 15:28; Start 05/09/18 at 15:00; Stop 05/09/18 at 16:59 ; Status DC Ondansetron HCl (Zofran) 4 mg PRN Q8HRS PRN IV NAUSEA/VOMITING; Start 05/09/18 at 15:15; Stop 05/10/18 at 15:14; Status DC Morphine Sulfate (Morphine Sulfate) 2 mg PRN Q2HR PRN IV PAIN Last administered on 05/10/18at 06:43; Start 05/09/18 at 15:15; Stop 05/10/18 at 15:14 ; Status DC Piperacillin Sod/ Tazobactam Sod 2.25 gm/Sodium Chloride 50 ml @ 100 mls/hr Q8HRS IV Last administered on 05/14/18at 05:38; Start 05/09/18 at 22:00 Vancomycin HCl (Vancomycin Random Level) 1 each 1X ONCE MC Last administered on 05/12/18 06:00; Start 05/12/18 at 06:00; Stop 05/12/18 at 06:01; Status DC Lactobacillus Rhamnosus (Culturelle) 1 cap BID PO Last administered on 20:55; Start 05/09/18 at 21:00 Aspirin (Ecotrin) 81 mg DAILYWBKFT PO Last administered on 05/13/18at 08:12; Start 05/10/18 at 09:00 Vitamin D (Vitamin D3) 1,000 unit DAILY PO Last administered on 05/13/18 08:12 ; Start 05/10/18 at 09:00 Clopidogrel Bisulfate (Plavix) 75 mg DAILY PO Last administered on 05/13/18at 08 :12; Start 05/10/18 at 09:00 Acetaminophen/ Hydrocodone Bitart (Lortab 5/325) 1 tab PRN Q4HRS PRN PO pain MILD TO MOD Last administered on 05/14/18at 03:31; Start 05/10/18 at 08:45 Insulin Glargine (Lantus) 20 units QHS SQ Last administered on 05/13/18at 21:07 ; Start 05/10/18 at 21:00 Metoprolol Tartrate (Lopressor) 25 mg BID PO Last administered on 05/13/18at 20: 56; Start 05/10/18 at 09:00 Sodium Bicarbonate (Sodium Bicarbonate) 650 mg BID PO Last administered on 05/13 20:56; Start 05/10/18 at 09:00 Tamsulosin HCl (Flomax) 0.4 mg DAILY PO Last administered on 05/13/18at 08:12; Start 05/10/18 at 09:00 Trazodone HCl (Desyrel) 25 mg PRN QHS PRN PO INSOMNIA; Start 05/10/18 at 08:45 Trazodone HCl (Desyrel) 150 mg QHS PO Last administered on 05/13/18 20:57; Start 05/10/18 at 21:00 Bumetanide (Bumex) 2 mg DAILY PO Last administered on 05/12/18at 09:23; Start at 09:30 Insulin Human Lispro (HumaLOG) 10 units TIDWMEALS SQ Last administered on at 17:15; Start 05/10/18 at 12:00 Metolazone (Zaroxolyn) 5 mg DAILY PO Last administered on 05/12/18at 09:24; Start 05/10/18 at 09:30 Simvastatin (Zocor) 80 mg QHS PO Last administered on 05/13/18at 20:57; Start at 21:00 Sertraline HCl (Zoloft) 100 mg DAILY PO Last administered on 05/13/18at 08:12; Start 05/10/18 at 09:30 Sodium Chloride 1,000 ml @ 1,000 mls/hr Q1H PRN IV hypotension; Start 05/10/18 at 10:59; Stop 05/10/18 at 16:58; Status DC Sodium Chloride 1,000 ml @ 400 mls/hr Q2H30M PRN IV PATENCY; Start 05/10/18 at 10:59; Stop 05/10/18 at 22:58; Status DC Info (PHARMACY MONITORING -- do not chart) 1 each PRN DAILY PRN MC SEE COMMENTS ; Start 05/10/18 at 11:00 Info (PHARMACY MONITORING -- do not chart) 1 each PRN DAILY PRN MC SEE COMMENTS ; Start 05/10/18 at 11:00; Status UNV Vancomycin HCl 500 mg/Sodium Chloride 100 ml @ 100 mls/hr 1X ONCE IV Last administered on 05/11/18at 14:31; Start 05/11/18 at 15:00; Stop 05/11/18 at 15:59 ; Status DC Sodium Chloride 1,000 ml @ 1,000 mls/hr Q1H PRN IV hypotension; Start 05/12/18 at 10:30; Stop 05/12/18 at 19:02; Status DC Albumin Human 200 ml @ 200 mls/hr 1X PRN PRN IV Hypotension; Start 05/12/18 at 10:30; Stop 05/12/18 at 16:29; Status DC Sodium Chloride (Normal Saline Flush) 10 ml 1X PRN PRN IV AP catheter pack; Start 05/12/18 at 10:30; Stop 05/12/18 at 18:00; Status DC Sodium Chloride (Normal Saline Flush) 10 ml 1X PRN PRN IV SLINGER SEQUINS catheter pack; Start 05/12/18 at 10:30; Stop 05/12/18 at 18:00; Status DC Sodium Chloride 1,000 ml @ 400 mls/hr Q2H30M PRN IV PATENCY; Start 05/12/18 at 10:30; Stop 05/12/18 at 18:00; Status DC Info (PHARMACY MONITORING -- do not chart) 1 each PRN DAILY PRN MC SEE COMMENTS ; Start 05/12/18 at 10:30; Status UNV Info (PHARMACY MONITORING -- do not chart) 1 each PRN DAILY PRN MC SEE COMMENTS ; Start 05/12/18 at 10:30; Status UNV Micafungin Sodium 100 mg/Dextrose 100 ml @ 100 mls/hr Q24H IV Last administered on 05/13/18at 10:43; Start 05/12/18 at 11:00 Dextrose (Dextrose 50%-Water Syringe) 12.5 gm PRN Q15MIN PRN IV SEE COMMENTS Last administered on 05/12/18at 11:56; Start 05/12/18 at 11:45 Vancomycin HCl 500 mg/Sodium Chloride 100 ml @ 100 mls/hr QMWF@1600 IV Last administered on 05/12/18at 17:22; Start 05/12/18 at 16:00 Sodium Chloride 1,000 ml @ 1,000 mls/hr 1X ONCE IV Last administered on at 09:16; Start 05/13/18 at 09:15; Stop 05/13/18 at 10:14; Status DC Ondansetron HCl (Zofran) 4 mg PRN Q6HRS PRN IV NAUSEA/VOMITING; Start 05/14/18 at 07:00; Stop 05/15/18 at 06:59 Fentanyl Citrate (Fentanyl 2ml Vial) 25 mcg PRN Q5MIN PRN IV MILD PAIN; Start 05/14/18 at 07:00; Stop 05/15/18 at 06:59 Fentanyl Citrate (Fentanyl 2ml Vial) 50 mcg PRN Q5MIN PRN IV MODERATE TO SEVERE PAIN Last administered on 05/14/18at 09:42; Start 05/14/18 at 07:00; Stop 05/15/18 at 06:59 Morphine Sulfate (Morphine Sulfate) 1 mg PRN Q10MIN PRN IV SEVERE PAIN; Start 05/14/18 at 07:00; Stop 05/15/18 at 06:59 Ringer's Solution 1,000 ml @ 30 mls/hr Q24H IV ; Start 05/14/18 at 07:00; Stop 05/14/18 at 18:59 Lidocaine HCl (Xylocaine-Mpf 1% 2ml Vial) 2 ml PRN 1X PRN ID IV START; Start at 07:00; Stop 05/15/18 at 06:59 Hydromorphone HCl (Dilaudid) 0.5 mg PRN Q10MIN PRN IV SEV PAIN, Second choice; Start 05/14/18 at 07:00; Stop 05/15/18 at 06:59 Prochlorperazine Edisylate (Compazine) 5 mg PACU PRN PRN IV NAUSEA, MRX1; Start 05/14/18 at 07:00; Stop 05/15/18 at 06:59 Propofol 20 ml @ As Directed STK-MED ONCE IV ; Start 05/14/18 at 06:38; Stop at 06:39; Status DC Lidocaine HCl (Lidocaine Pf 2% Vial) 5 ml STK-MED ONCE .ROUTE ; Start 05/14/18 at 06:38; Stop 05/14/18 at 06:39; Status DC Dexamethasone Sodium Phosphate (Decadron) 20 mg STK-MED ONCE .ROUTE ; Start at 06:38; Stop 05/14/18 at 06:39; Status DC Ondansetron HCl (Zofran) 4 mg STK-MED ONCE .ROUTE ; Start 05/14/18 at 06:38; Stop 05/14/18 at 06:39; Status DC Bacitracin (Bacitracin) 50,000 unit STK-MED ONCE IRR ; Start 05/14/18 at 07:21; Stop 05/14/18 at 07:22; Status DC Fentanyl Citrate (Fentanyl 2ml Vial) 100 mcg STK-MED ONCE .ROUTE ; Start at 07:21; Stop 05/14/18 at 07:22; Status DC Ephedrine Sulfate (Akovaz) 50 mg STK-MED ONCE .ROUTE ; Start 05/14/18 at 07:38; Stop 05/14/18 at 07:39; Status DC Phenylephrine HCl (Kiran-Synephrine Inj) 10 mg STK-MED ONCE .ROUTE ; Start at 07:49; Stop 05/14/18 at 07:50; Status DC Cefazolin Sodium/ Dextrose 50 ml @ As Directed STK-MED ONCE IV Last administered on 05/14/18at 08:24; Start 05/14/18 at 08:24; Stop 05/14/18 at 08:25 ; Status DC Tobramycin Sulfate (Tobramycin Powder) 1.2 gm STK-MED ONCE .ROUTE ; Start at 08:24; Stop 05/14/18 at 08:25; Status DC Sevoflurane (Ultane) 90 ml STK-MED ONCE IH ; Start 05/14/18 at 08:28; Stop 05/14 at 08:29; Status DC Sevoflurane (Ultane) 60 ml STK-MED ONCE IH ; Start 05/14/18 at 08:28; Stop 05/14 at 08:29; Status DC Sodium Chloride (SODIUM CHLORIDE 20ml) 20 ml STK-MED ONCE IJ ; Start 05/14/18 at 08:45; Stop 05/14/18 at 08:46; Status DC Morphine Sulfate (Morphine Sulfate) 4 mg PRN Q2HR PRN IV SEVERE PAIN; Start at 09:00 Oxycodone/ Acetaminophen (Percocet 5/325) 1 tab PRN Q4HRS PRN PO MODERATE PAIN ; Start 05/14/18 at 09:00 Oxycodone/ Acetaminophen (Percocet 5/325) 2 tab PRN Q4HRS PRN PO SEVERE PAIN; Start 05/14/18 at 09:00 Fentanyl Citrate (Fentanyl 2ml Vial) 100 mcg STK-MED ONCE .ROUTE ; Start at 09:12; Stop 05/14/18 at 09:13; Status DC Fentanyl Citrate (Fentanyl 2ml Vial) 100 mcg STK-MED ONCE .ROUTE ; Start at 09:35; Stop 05/14/18 at 09:36; Status DC Active Scripts Active Lantus Solostar (Insulin Glargine,Hum.rec.anlog) 100 Unit/1 Ml Insuln.pen 20 Units SQ QHS 30 Days Vancomycin Hcl 1 Gm Vial 1 Each MWF WITH DIALYSIS PRN 14 Days [place] 5-325 Tablet (Acetaminophen/Hydrocodone Bitart) 1 Each Tablet 1-2 Tab PO Q4-6HRS 6 Days Aspirin Ec (Aspirin) 81 Mg Tablet.dr 81 Mg PO DAILYWBKFT 30 Days Flomax (Tamsulosin Hcl) 0.4 Mg Cap.er.24h 0.4 Mg PO DAILY Reported Trazodone Hcl 50 Mg Tablet 0.5 Tab PO PRN 1X Trazodone Hcl 50 Mg Tablet 3 Tab PO QHS Lisinopril 20 Mg Tablet 1 Tab PO DAILY Crestor (Rosuvastatin Calcium) 20 Mg Tablet 0.5 Tab PO DAILY Plavix (Clopidogrel Bisulfate) 75 Mg Tablet 75 Mg PO DAILY Sodium Bicarbonate 650 Mg Tablet 650 Mg PO BID Sertraline Hcl 100 Mg Tablet 100 Mg PO DAILY Novolog (Insulin Aspart) 100 Unit/1 Ml Cartridge 10 Unit SQ TIDAC Metoprolol Tartrate 25 Mg Tablet 1 Tab PO BID Metolazone 5 Mg Tablet 5 Mg PO DAILY Vitamin D3 (Cholecalciferol (Vitamin D3)) 1,000 Unit Tablet 1 Tab PO DAILY Bumetanide 2 Mg Tablet 1 Tab PO DAILY Vitals/I & O Vital Sign - Last 24 Hours 05/13/18 05/13/18 05/13/18 05/13/18 11:00 11:32 15:00 19:00 Temp 98.6 99.0 99.3 98.6 99.0 99.3 Pulse 69 66 69 Resp 20 20 20 B/P (MAP) 112/43 (66) 104/40 (61) 122/80 (94) Pulse Ox 93 93 93 O2 Delivery Room Air Room Air Room Air Room Air 05/13/18 05/13/18 05/13/18 05/13/18 19:04 20:00 20:05 20:56 Pulse 80 B/P (MAP) 122/80 Pulse Ox 98 O2 Delivery Room Air Room Air 05/13/18 05/14/18 05/14/18 05/14/18 23:00 03:00 03:31 04:35 Temp 98.9 98.9 98.9 98.9 Pulse 70 63 Resp 20 20 18 18 B/P (MAP) 119/74 (89) 121/37 (65) Pulse Ox 95 94 O2 Delivery Room Air Room Air Room Air Room Air 05/14/18 05/14/18 05/14/18 05/14/18 06:40 09:15 09:30 09:42 Temp 98.8 98.8 Pulse 61 Resp 18 16 16 B/P (MAP) 126/55 Pulse Ox 93 99 93 94 O2 Delivery Room Air Simple Mask Nasal Cannula Nasal Cannula O2 Flow Rate 8.0 2.0 2.0 Intake and Output 05/13/18 05/13/18 05/14/18 15:00 23:00 07:00 Intake Total 500 ml 390 ml Output Total 1 ml Balance 500 ml 389 ml Nutrition Consultation Dietary Evaluation: Recommendations by RD: Increase Calorie Intake, Protein supplementation, Add supplement feedings Comments: Pt. states he uses an adaptive spoon at home due to difficulty holding onto spoon when feeding himself. Notified OT. Expected Outcomes/Goals: P.O. intake >75% Supplement intake Continue Renal/ADA diet Malnutrition Findings: Food and Nutrition Intake (Mod: <75% est energy req 7days Body Fat Depletion (Non Severe: Mild Depletion Weight Status: Obese VICENTE FLROES MD May 14, 2018 10:07
[2018-05-14] MEDS: VANCOMYCIN PER PHARMACY MC PRN (10:36)
[2018-05-14] MEDS: MORPHINE SULFATE 4 MG/ML VIAL. IV PRN ×5 (10:47→22:13)
[2018-05-14] MEDS: MICAFUNGIN 100 MG in IV DEXTROSE 5% 100ML 100 ML IV SCH (11:22)
[2018-05-14] MEDS: oxyCODONE/APAP 5/325 1 TAB TABLET PO PRN ×2 (11:30→17:01)
[2018-05-14] MEDS ORDERED: IV NORMAL SALINE 500ML BAG 500 ML IV ONE (12:45)
[2018-05-14 14:37] LABS: CALCIUM 8.5 mg/dL (8.5-10.1); CREATININE 3.8 mg/dL (0.7-1.3); GFR 15.6; POTASSIUM 4.5 mmol/L (3.5-5.1)
--- NOTE | 2018-05-14 14:48 | PDOC ---
SUBJECTIVE ROS s/p BKA, doesn't want to do HD today , reports his leg is hurting a lot OBJECTIVE Vital Signs Vital Signs Date Time Temp Pulse Resp B/P (MAP) Pulse Ox O2 Delivery O2 Flow Rate FiO2 05/14/18 14:04 95 Nasal Cannula 2.0 05/14/18 14:00 72 96/54 (68) 05/14/18 09:55 18 05/14/18 09:45 97.7 97.7 I & 0 Intake and Output 05/14/18 07:00 Intake Total 890 ml Output Total 1 ml Balance 889 ml Intake Oral 240 ml IV Total 650 ml Stool Total 1 ml # Bowel Movements 2 PHYSICAL EXAM Physical Exam GENERAL: NAD, HEENT: OM moist NECK: Supple. LUNGS: Clear to auscultation. HEART: S1 and S2. Pacemaker. ABDOMEN: Obese, soft and nontender EXTREMITIES: Rt BKA Rooke boots. RUE-AV fistula - Thrill/Bruit+ SKIN: No rash. coccyx ulcer + DIAGNOSIS/ASSESSMENT Assessment & Plan ESRD- MWF Pt refusing HD today, leg is hurting post BKA this am E-Lytes and acid base stable, Vol status stable Will schedule HD for Tomorrow Discussed with Regional E[facility] Manager Large nonhealing calcaneal wound with suspected osteo on x-ray/exam. -h/o debridement subcutaneous tissue and skin d/evan home on vanc and Augmentin x 3 weeks on 03/27/18 S/P right below knee amputation this am Left foot ulcers/Coccyx ulcer Anemia- Hgb stable No indication for KVNG DM II Pacemaker COMMENT/RELEVANT DATA Meds Current Medications Medications (Trade) Dose Ordered Sig/Cherie Start Time Stop Time Status Last Admin Dose Admin Acetaminophen/ Hydrocodone Bitart (Lortab 5/325) 1 tab PRN Q4HRS PRN 05/10/18 08:45 05/14/18 03:31 1 TAB Albumin Human 200 ml @ 200 mls/hr 1X PRN PRN 05/12/18 10:30 05/12/18 16:29 DC Aspirin (Ecotrin) 81 mg DAILYWBKFT 05/10/18 09:00 05/13/18 08:12 81 MG Bacitracin (Bacitracin) 50,000 unit STK-MED ONCE 05/14/18 07:21 05/14/18 07:22 DC Bumetanide (Bumex) 2 mg DAILY 05/10/18 09:30 05/12/18 09:23 2 MG Cefazolin Sodium/ Dextrose 50 ml @ As Directed STK-MED ONCE 05/14/18 08:24 05/14/18 08:25 DC 05/14/18 08:24 Clopidogrel Bisulfate (Plavix) 75 mg DAILY 05/10/18 09:00 05/13/18 08:12 75 MG Dexamethasone Sodium Phosphate (Decadron) 20 mg STK-MED ONCE 05/14/18 06:38 05/14/18 06:39 DC Dextrose (Dextrose 50%-Water Syringe) 12.5 gm PRN Q15MIN PRN 05/12/18 11:45 05/12/18 11:56 12.5 GM Ephedrine Sulfate (Akovaz) 50 mg STK-MED ONCE 05/14/18 07:38 05/14/18 07:39 DC Fentanyl Citrate (Fentanyl 2ml Vial) 100 mcg STK-MED ONCE 05/14/18 09:35 05/14/18 09:36 DC Hydromorphone HCl (Dilaudid) 0.5 mg PRN Q10MIN PRN 05/14/18 07:00 05/15/18 06:59 Info (PHARMACY MONITORING -- do not chart) 1 each PRN DAILY PRN 05/12/18 10:30 UNV Insulin Glargine (Lantus) 20 units QHS 05/10/18 21:00 05/13/18 21:07 20 UNITS Insulin Human Lispro (HumaLOG) 10 units TIDWMEALS 05/10/18 12:00 05/13/18 17:15 10 UNITS Lactobacillus Rhamnosus (Culturelle) 1 cap BID 05/09/18 21:00 05/13/18 20:55 1 CAP Lidocaine HCl (Lidocaine Pf 2% Vial) 5 ml STK-MED ONCE 05/14/18 06:38 05/14/18 06:39 DC Lidocaine HCl (Xylocaine-Mpf 1% 2ml Vial) 2 ml PRN 1X PRN 05/14/18 07:00 05/15/18 06:59 Metolazone (Zaroxolyn) 5 mg DAILY 05/10/18 09:30 05/12/18 09:24 5 MG Metoprolol Tartrate (Lopressor) 25 mg BID 05/10/18 09:00 05/13/18 20:56 25 MG Micafungin Sodium 100 mg/Dextrose 100 ml @ 100 mls/hr Q24H 05/12/18 11:00 05/14/18 11:22 100 MLS/HR Morphine Sulfate (Morphine Sulfate) 4 mg PRN Q2HR PRN 05/14/18 09:00 05/14/18 12:36 4 MG Ondansetron HCl (Zofran) 4 mg STK-MED ONCE 05/14/18 06:38 05/14/18 06:39 DC Oxycodone HCl (Roxicodone) 10 mg PRN Q6HRS PRN 05/14/18 12:45 Oxycodone/ Acetaminophen (Percocet 5/325) 2 tab PRN Q4HRS PRN 05/14/18 09:00 05/14/18 11:30 2 TAB Phenylephrine HCl (Kiran-Synephrine Inj) 10 mg STK-MED ONCE 05/14/18 07:49 05/14/18 07:50 DC Piperacillin Sod/ Tazobactam Sod (Zosyn Per Pharmacy) 1 each PRN DAILY PRN 05/09/18 14:15 Piperacillin Sod/ Tazobactam Sod 2.25 gm/Sodium Chloride 50 ml @ 100 mls/hr Q8HRS 05/09/18 22:00 05/14/18 14:02 100 MLS/HR Prochlorperazine Edisylate (Compazine) 5 mg PACU PRN PRN 05/14/18 07:00 05/15/18 06:59 Propofol 20 ml @ As Directed STK-MED ONCE 05/14/18 06:38 05/14/18 06:39 DC Ringer's Solution 1,000 ml @ 30 mls/hr Q24H 05/14/18 07:00 05/14/18 18:59 Sertraline HCl (Zoloft) 100 mg DAILY 05/10/18 09:30 05/13/18 08:12 100 MG Sevoflurane (Ultane) 60 ml STK-MED ONCE 05/14/18 08:28 05/14/18 08:29 DC Simvastatin (Zocor) 80 mg QHS 05/10/18 21:00 05/13/18 20:57 80 MG Sodium Bicarbonate (Sodium Bicarbonate) 650 mg BID 05/10/18 09:00 05/13/18 20:56 650 MG Sodium Chloride 500 ml @ 500 mls/hr 1X ONCE 05/14/18 12:45 05/14/18 13:44 DC 05/14/18 14:04 500 MLS/HR Sodium Chloride (Normal Saline Flush) 10 ml 1X PRN PRN 05/12/18 10:30 05/12/18 18:00 DC Sodium Chloride (SODIUM CHLORIDE 20ml) 20 ml STK-MED ONCE 05/14/18 08:45 05/14/18 08:46 DC Tamsulosin HCl (Flomax) 0.4 mg DAILY 05/10/18 09:00 05/13/18 08:12 0.4 MG Tobramycin Sulfate (Tobramycin Powder) 1.2 gm STK-MED ONCE 05/14/18 08:24 05/14/18 08:25 DC Trazodone HCl (Desyrel) 150 mg QHS 05/10/18 21:00 05/13/18 20:57 150 MG Vancomycin HCl (Vanco Per Pharmacy) 1 each PRN DAILY PRN 05/09/18 14:15 05/14/18 10:36 1 EACH Vancomycin HCl (Vancomycin Random Level) 1 each 1X ONCE 05/12/18 06:00 05/12/18 06:01 DC 05/12/18 06:00 1 EACH Vancomycin HCl 500 mg/Sodium Chloride 100 ml @ 100 mls/hr QMWF@1600 05/12/18 16:00 05/12/18 17:22 100 MLS/HR Vancomycin HCl 2 gm/Sodium Chloride 500 ml @ 250 mls/hr 1X ONCE 05/09/18 15:00 05/09/18 16:59 DC 05/09/18 15:28 250 MLS/HR Vitamin D (Vitamin D3) 1,000 unit DAILY 05/10/18 09:00 05/13/18 08:12 1,000 UNIT Lab Laboratory Tests Test 05/13/18 16:51 05/13/18 20:11 05/14/18 06:42 05/14/18 09:11 Glucose (Fingerstick) 204 mg/dL (70-99) 145 mg/dL (70-99) 84 mg/dL (70-99) 86 mg/dL (70-99) Test 05/14/18 14:10 Sodium Level 134 mmol/L (136-145) Potassium Level 4.5 mmol/L (3.5-5.1) Chloride Level 95 mmol/L (98-107) Carbon Dioxide Level 25 mmol/L (21-32) Anion Gap 14 (6-14) Blood Urea Nitrogen 62 mg/dL (8-26) Creatinine 3.8 mg/dL (0.7-1.3) Estimated GFR (Cockcroft-Gault) 15.6 Glucose Level 207 mg/dL (70-99) Calcium Level 8.5 mg/dL (8.5-10.1) Results All relevant outside records, renal labs, imaging studies, telemetry/EKG's were reviewed. ONDINA YAO MD May 14, 2018 14:47
--- NOTE | 2018-05-14 15:10 | NUR ---
SW following pt. Spoke with pt regarding SNU vs Rehab and discussed options. Pt reported he wants to go to [facility]. SW phoned and faxed referral to [facility]. Pt admission and acceptance pending. Will continue to follow. NIC AMIN.
[2018-05-14] MEDS: VANCOMYCIN 500 MG in IV NORMAL SALINE 100ML 100 ML IV SCH (17:03)
[2018-05-14] MEDS: SIMVASTATIN 40 MG TABLET. PO SCH (21:32)
[2018-05-14] MEDS: traZODone 50 MG TABLET. PO SCH (21:32)
[2018-05-14] MEDS: INSULIN GLARGINE 300 UNITS/3 ML INSULN.PEN. SQ SCH (21:50)
[2018-05-15] MEDS: oxyCODONE IR 5 MG TABLET PO PRN ×2 (03:14→18:58)
[2018-05-15 03:15] VITALS: BP 110/49
[2018-05-15] MEDS: PIPERACILLIN/TAZOBACTAM 2.25 GM in IV NORMAL SALINE 50ML 50 ML IV SCH ×3 (05:48→22:16)
[2018-05-15] MEDS: MORPHINE SULFATE 4 MG/ML VIAL. IV PRN ×5 (06:03→18:58)
[2018-05-15 07:00] VITALS: BP 106/46
[2018-05-15 07:29] LABS: BASO % 0 % (0-3); EOS # 0.3 x10^3/uL (0.0-0.7); EOS % 2 % (0-3); HEMATOCRIT 31.7 % (39.0-53.0); HEMOGLOBIN 10.4 g/dL (13.0-17.5); LYMPH # 1.5 x10^3/uL (1.0-4.8); LYMPH % 10 % (24-48); MEAN CORPUSCULAR HEMOGLOBIN 31 pg (25-35); MEAN CORPUSCULAR HGB CONC 33 g/dL (31-37); MEAN CORPUSCULAR VOLUME 95 fL (79-100); MONO # 1.1 x10^3/uL (0.0-1.1); MONO % 8 % (0-9); NEUT # 11.8 x10^3uL (1.8-7.7); NEUT % 80 % (31-73); PLATELET COUNT 217 x10^3/uL (140-400); RED BLOOD COUNT 3.32 x10^6/uL (4.30-5.70); RED CELL DISTRIBUTION WIDTH 13.4 % (11.5-14.5); WHITE BLOOD COUNT 14.7 x10^3/uL (4.0-11.0)
--- NOTE | 2018-05-15 08:18 | NUR ---
PERFECTO following pt. Pt has been accepted at [facility] and facility will have a bed available upon dc. NIC AMIN. PERFECTO will continue to follow.
[2018-05-15 08:21] LABS: ALBUMIN 2.2 g/dL (3.4-5.0); ALBUMIN/GLOBULIN RATIO 0.5 (1.0-1.7); CALCIUM 8.7 mg/dL (8.5-10.1); CREATININE 4.2 mg/dL (0.7-1.3); GFR 13.9; POTASSIUM 4.8 mmol/L (3.5-5.1); TOTAL BILIRUBIN 0.5 mg/dL (0.2-1.0); TOTAL PROTEIN 6.7 g/dL (6.4-8.2)
--- NOTE | 2018-05-15 08:46 | PDOC ---
Provider Note Provider Note S: POD#1 of right BKA - Reports doing well today. Only complaint is "the service here, yesterday I waited 1.5 hr after pushing my help button before someone came in." Good appetite, intake and output. MANOLO drain with about 90 out yesterday. Small drop in Hgb post op. O: VSS, afebrile Alert, oriented, in no apparent distress Respirations non labored Right BKA drain in tact, small amount of output, dressing clean, dry and intact. Small area of old blood drainage to medial stump. A/P: POD#1 of right BKA - Pt doing well, pain well controlled. Dressing/drain to be removed tomorrow. - Rigid Amp protector from [employer] to help prevent flexion contracture - Continue PT/OT - SS to assist with dispo planning, pt will require rehab upon discharge Left foot DM ulcers - continue wound care - Pt can be weight bearing on left foot for PT immediately post op, may adjust in future for optimizing wound healing Anemia - stable ESRD - for dialysis today DM - continue management per primary MIGUEL WASSERMAN May 15, 2018 08:46
[2018-05-15] MEDS: BUMETANIDE 1 MG TABLET. PO SCH (09:00)
[2018-05-15] MEDS: METOPROLOL TART IMMED RELEASE 25 MG TABLET. PO SCH ×2 (09:00→20:21)
[2018-05-15] MEDS: metOLazone 2.5 MG TABLET PO SCH (09:00)
--- NOTE | 2018-05-15 09:19 | PDOC ---
Infectious Disease Note Subjective Subjective pain but controlled. + Flatus but no BM yet. Eating Denies chills/aches/N/V/D/SOA/Rash ROS ROS o/w neg Vital Sign Vital Signs Vital Signs Date Time Temp Pulse Resp B/P (MAP) Pulse Ox O2 Delivery O2 Flow Rate FiO2 05/15/18 07:00 98.2 55 20 106/46 (66) 99 Room Air 98.2 05/15/18 06:33 2.0 Physical Exam PHYSICAL EXAM GENERAL: NAD, coop, in bed, in HD HEENT: Pupils are equally round. Normal conjunctivae. Oral cavity: Pharynx pink and moist. NECK: Supple. LUNGS: Clear to auscultation. HEART: S1 and S2. Pacemaker. ABDOMEN: Obese, soft and nontender with bowel sounds present. EXTREMITIES: No gross edema or cyanosis. R BKA dressed, MANOLO in place. RUE-AV fistula unremarkable. LLE [place] SKIN: Warm without generalized rash. coccyx ulcer (pic) NEUROLOGIC: nonfocal responds appropriately. PIV ok Labs Lab Laboratory Tests Test 05/14/18 11:27 05/14/18 14:10 05/14/18 16:51 05/14/18 20:44 Glucose (Fingerstick) 123 mg/dL (70-99) 277 mg/dL (70-99) 260 mg/dL (70-99) Sodium Level 134 mmol/L (136-145) Potassium Level 4.5 mmol/L (3.5-5.1) Chloride Level 95 mmol/L (98-107) Carbon Dioxide Level 25 mmol/L (21-32) Anion Gap 14 (6-14) Blood Urea Nitrogen 62 mg/dL (8-26) Creatinine 3.8 mg/dL (0.7-1.3) Estimated GFR (Cockcroft-Gault) 15.6 Glucose Level 207 mg/dL (70-99) Calcium Level 8.5 mg/dL (8.5-10.1) Test 05/15/18 06:45 05/15/18 08:06 White Blood Count 14.7 x10^3/uL (4.0-11.0) Red Blood Count 3.32 x10^6/uL (4.30-5.70) Hemoglobin 10.4 g/dL (13.0-17.5) Hematocrit 31.7 % (39.0-53.0) Mean Corpuscular Volume 95 fL (79-100) Mean Corpuscular Hemoglobin 31 pg (25-35) Mean Corpuscular Hemoglobin Concent 33 g/dL (31-37) Red Cell Distribution Width 13.4 % (11.5-14.5) Platelet Count 217 x10^3/uL (140-400) Neutrophils (%) (Auto) 80 % (31-73) Lymphocytes (%) (Auto) 10 % (24-48) Monocytes (%) (Auto) 8 % (0-9) Eosinophils (%) (Auto) 2 % (0-3) Basophils (%) (Auto) 0 % (0-3) Neutrophils # (Auto) 11.8 x10^3uL (1.8-7.7) Lymphocytes # (Auto) 1.5 x10^3/uL (1.0-4.8) Monocytes # (Auto) 1.1 x10^3/uL (0.0-1.1) Eosinophils # (Auto) 0.3 x10^3/uL (0.0-0.7) Basophils # (Auto) 0.0 x10^3/uL (0.0-0.2) Sodium Level 134 mmol/L (136-145) Potassium Level 4.8 mmol/L (3.5-5.1) Chloride Level 96 mmol/L (98-107) Carbon Dioxide Level 26 mmol/L (21-32) Anion Gap 12 (6-14) Blood Urea Nitrogen 72 mg/dL (8-26) Creatinine 4.2 mg/dL (0.7-1.3) Estimated GFR (Cockcroft-Gault) 13.9 BUN/Creatinine Ratio 17 (6-20) Glucose Level 192 mg/dL (70-99) Calcium Level 8.7 mg/dL (8.5-10.1) Total Bilirubin 0.5 mg/dL (0.2-1.0) Aspartate Amino Transf (AST/SGOT) 18 U/L (15-37) Alanine Aminotransferase (ALT/SGPT) 11 U/L (16-63) Alkaline Phosphatase 94 U/L (46-116) Total Protein 6.7 g/dL (6.4-8.2) Albumin 2.2 g/dL (3.4-5.0) Albumin/Globulin Ratio 0.5 (1.0-1.7) Glucose (Fingerstick) 159 mg/dL (70-99) Micro Microbiology 05/11/18 Blood Culture - Preliminary, Resulted NO GROWTH AFTER 2 DAYS Objective Assessment Fever - better Leukocytosis - better - but now s/p BKA and Dexamethasone 05/14 S/p Right BKA 05/14 am Large nonhealing calcaneal wound with suspected osteo on x-ray/exam. ESR 76 -h/o debridement subcutaneous tissue and skin, 02/2018. no cultures and CT neg -d/c home on vanc and Augmentin x 3 weeks on 03/27/18. Left foot ulcers Coccyx ulcer PVD DM II CKD/HD Pacemaker h/o MRSA h/o Klebsiella (R amp) Plan Plan of Care Continue vanc and Zosyn, micafungin - taper to po for LLE f/u BC Monitor labs/temp. Local wound care D/w nursing ASHLYN BRADLEY MD May 15, 2018 09:19
[2018-05-15] MEDS: oxyCODONE/APAP 5/325 1 TAB TABLET PO PRN ×3 (09:28→20:20)
[2018-05-15] MEDS ORDERED: IV NORMAL SALINE 1000ML BAG 1,000 ML IV PRN ×2 (09:34)
[2018-05-15] MEDS: INSULIN LISPRO 300 UNITS/3 ML INSULN.PEN. SQ SCH ×3 (09:43→17:00)
[2018-05-15] MEDS ORDERED: DIALYSIS PATIENT. MC PRN ×2 (09:45)
[2018-05-15] MEDS: MICAFUNGIN 100 MG in IV DEXTROSE 5% 100ML 100 ML IV SCH (12:28)
[2018-05-15] MEDS: CLOPIDOGREL BISULFATE 75 MG TABLET PO SCH (12:29)
[2018-05-15] MEDS: CHOLECALCIFEROL (VITAMIN D3) 1,000 UNIT TABLET PO SCH (12:29)
[2018-05-15] MEDS: ASPIRIN ENTERIC COATED 81 MG TABLET.DR. PO SCH (12:29)
[2018-05-15] MEDS: LACTOBACILLUS RHAMNOSUS GG 1 CAPSULE. PO SCH ×2 (12:29→20:21)
[2018-05-15] MEDS: TAMSULOSIN 0.4 MG CAP.ER.24H. PO SCH (12:29)
[2018-05-15] MEDS: SODIUM BICARBONATE 650 MG TABLET. PO SCH ×2 (12:29→20:21)
[2018-05-15] MEDS: SERTRALINE 50 MG TABLET. PO SCH (12:30)
--- NOTE | 2018-05-15 13:13 | PDOC ---
SUBJECTIVE ROS s/p BKA, pain better OBJECTIVE Vital Signs Vital Signs Date Time Temp Pulse Resp B/P (MAP) Pulse Ox O2 Delivery O2 Flow Rate FiO2 05/15/18 12:56 99 Room Air 2.0 05/15/18 09:00 55 106/46 05/15/18 07:00 98.2 20 98.2 I & 0 Intake and Output 05/15/18 07:00 Intake Total 650 ml Output Total 590 ml Balance 60 ml IV Total 650 ml Output Urine Total 300 ml Drainage Total 90 ml Estimated Blood Loss 200 ml PHYSICAL EXAM Physical Exam GENERAL: NAD, HEENT: OM moist NECK: Supple. LUNGS: Clear to auscultation. HEART: S1 and S2. Pacemaker. ABDOMEN: Obese, soft and nontender EXTREMITIES: No gross edema , Rt BKA RUE-AV fistula - Thrill/Bruit+ SKIN: No rash. coccyx ulcer + DIAGNOSIS/ASSESSMENT Assessment & Plan ESRD- MWF He refused Yesterday due to pain post BKA Seen on HD today, Tolerating well, continue as Ordered Dw care tech Again tomorrow to put him back on schedule Large nonhealing calcaneal wound with suspected osteo on x-ray/exam. -h/o debridement subcutaneous tissue and skin d/evan home on vanc and Augmentin x 3 weeks on 03/27/18 S/P right below knee amputation Left foot ulcers/Coccyx ulcer Anemia- Drop in Hgbpost BKS, Monitor No indication for KVNG DM II Pacemaker COMMENT/RELEVANT DATA Meds Current Medications Medications (Trade) Dose Ordered Sig/Cherie Start Time Stop Time Status Last Admin Dose Admin Acetaminophen/ Hydrocodone Bitart (Lortab 5/325) 1 tab PRN Q4HRS PRN 05/10/18 08:45 05/14/18 03:31 1 TAB Albumin Human 200 ml @ 200 mls/hr 1X PRN PRN 05/12/18 10:30 05/12/18 16:29 DC Aspirin (Ecotrin) 81 mg [id number] 05/10/18 09:00 05/15/18 12:29 81 MG Bacitracin (Bacitracin) 50,000 unit STK-MED ONCE 05/14/18 07:21 05/14/18 07:22 DC Bumetanide (Bumex) 2 mg DAILY 05/10/18 09:30 05/12/18 09:23 2 MG Cefazolin Sodium/ Dextrose 50 ml @ As Directed STK-MED ONCE 05/14/18 08:24 05/14/18 08:25 DC 05/14/18 08:24 Clopidogrel Bisulfate (Plavix) 75 mg DAILY 05/10/18 09:00 05/15/18 12:29 75 MG Dexamethasone Sodium Phosphate (Decadron) 20 mg STK-MED ONCE 05/14/18 06:38 05/14/18 06:39 DC Dextrose (Dextrose 50%-Water Syringe) 12.5 gm PRN Q15MIN PRN 05/12/18 11:45 05/12/18 11:56 12.5 GM Ephedrine Sulfate (Akovaz) 50 mg STK-MED ONCE 05/14/18 07:38 05/14/18 07:39 DC Fentanyl Citrate (Fentanyl 2ml Vial) 100 mcg STK-MED ONCE 05/14/18 09:35 05/14/18 09:36 DC Hydromorphone HCl (Dilaudid) 0.5 mg PRN Q10MIN PRN 05/14/18 07:00 05/15/18 06:59 DC Info (PHARMACY MONITORING -- do not chart) 1 each PRN DAILY PRN 05/15/18 09:45 Insulin Glargine (Lantus) 20 units QHS 05/10/18 21:00 05/14/18 21:50 20 UNITS Insulin Human Lispro (HumaLOG) 10 units TIDWMEALS 05/10/18 12:00 05/15/18 09:43 10 UNITS Lactobacillus Rhamnosus (Culturelle) 1 cap BID 05/09/18 21:00 05/15/18 12:29 1 CAP Lidocaine HCl (Lidocaine Pf 2% Vial) 5 ml STK-MED ONCE 05/14/18 06:38 05/14/18 06:39 DC Lidocaine HCl (Xylocaine-Mpf 1% 2ml Vial) 2 ml PRN 1X PRN 05/14/18 07:00 05/15/18 06:59 DC Metolazone (Zaroxolyn) 5 mg DAILY 05/10/18 09:30 05/12/18 09:24 5 MG Metoprolol Tartrate (Lopressor) 25 mg BID 05/10/18 09:00 05/14/18 21:32 25 MG Micafungin Sodium 100 mg/Dextrose 100 ml @ 100 mls/hr Q24H 05/12/18 11:00 05/15/18 12:28 100 MLS/HR Morphine Sulfate (Morphine Sulfate) 4 mg PRN Q2HR PRN 05/14/18 09:00 05/15/18 12:28 4 MG Ondansetron HCl (Zofran) 4 mg STK-MED ONCE 05/14/18 06:38 05/14/18 06:39 DC Oxycodone HCl (Roxicodone) 10 mg PRN Q6HRS PRN 05/14/18 12:45 05/15/18 03:14 10 MG Oxycodone/ Acetaminophen (Percocet 5/325) 2 tab PRN Q4HRS PRN 05/14/18 09:00 05/15/18 09:28 2 TAB Phenylephrine HCl (Kiran-Synephrine Inj) 10 mg STK-MED ONCE 05/14/18 07:49 05/14/18 07:50 DC Piperacillin Sod/ Tazobactam Sod (Zosyn Per Pharmacy) 1 each PRN DAILY PRN 05/09/18 14:15 Piperacillin Sod/ Tazobactam Sod 2.25 gm/Sodium Chloride 50 ml @ 100 mls/hr Q8HRS 05/09/18 22:00 05/15/18 05:48 100 MLS/HR Prochlorperazine Edisylate (Compazine) 5 mg PACU PRN PRN 05/14/18 07:00 05/15/18 06:59 DC Propofol 20 ml @ As Directed STK-MED ONCE 05/14/18 06:38 05/14/18 06:39 DC Ringer's Solution 1,000 ml @ 30 mls/hr Q24H 05/14/18 07:00 05/14/18 18:59 DC Sertraline HCl (Zoloft) 100 mg DAILY 05/10/18 09:30 05/15/18 12:30 100 MG Sevoflurane (Ultane) 60 ml STK-MED ONCE 05/14/18 08:28 05/14/18 08:29 DC Simvastatin (Zocor) 80 mg QHS 05/10/18 21:00 05/14/18 21:32 80 MG Sodium Bicarbonate (Sodium Bicarbonate) 650 mg BID 05/10/18 09:00 05/15/18 12:29 650 MG Sodium Chloride 1,000 ml @ 400 mls/hr Q2H30M PRN 05/15/18 09:34 05/15/18 21:33 Sodium Chloride (Normal Saline Flush) 10 ml 1X PRN PRN 05/12/18 10:30 05/12/18 18:00 DC Sodium Chloride (SODIUM CHLORIDE 20ml) 20 ml STK-MED ONCE 05/14/18 08:45 05/14/18 08:46 DC Tamsulosin HCl (Flomax) 0.4 mg DAILY 05/10/18 09:00 05/15/18 12:29 0.4 MG Tobramycin Sulfate (Tobramycin Powder) 1.2 gm STK-MED ONCE 05/14/18 08:24 05/14/18 08:25 DC Trazodone HCl (Desyrel) 150 mg QHS 05/10/18 21:00 05/14/18 21:32 150 MG Vancomycin HCl (Vanco Per Pharmacy) 1 each PRN DAILY PRN 05/09/18 14:15 05/14/18 10:36 1 EACH Vancomycin HCl (Vancomycin Random Level) 1 each 1X ONCE 05/12/18 06:00 05/12/18 06:01 DC 05/12/18 06:00 1 EACH Vancomycin HCl 500 mg/Sodium Chloride 100 ml @ 100 mls/hr QMWF@1600 05/12/18 16:00 05/14/18 17:03 100 MLS/HR Vancomycin HCl 2 gm/Sodium Chloride 500 ml @ 250 mls/hr 1X ONCE 05/09/18 15:00 05/09/18 16:59 DC 05/09/18 15:28 250 MLS/HR Vitamin D (Vitamin D3) 1,000 unit DAILY 05/10/18 09:00 05/15/18 12:29 1,000 UNIT Lab Laboratory Tests Test 05/14/18 14:10 05/14/18 16:51 05/14/18 20:44 05/15/18 06:45 Sodium Level 134 mmol/L (136-145) 134 mmol/L (136-145) Potassium Level 4.5 mmol/L (3.5-5.1) 4.8 mmol/L (3.5-5.1) Chloride Level 95 mmol/L (98-107) 96 mmol/L (98-107) Carbon Dioxide Level 25 mmol/L (21-32) 26 mmol/L (21-32) Anion Gap 14 (6-14) 12 (6-14) Blood Urea Nitrogen 62 mg/dL (8-26) 72 mg/dL (8-26) Creatinine 3.8 mg/dL (0.7-1.3) 4.2 mg/dL (0.7-1.3) Estimated GFR (Cockcroft-Gault) 15.6 13.9 Glucose Level 207 mg/dL (70-99) 192 mg/dL (70-99) Calcium Level 8.5 mg/dL (8.5-10.1) 8.7 mg/dL (8.5-10.1) Glucose (Fingerstick) 277 mg/dL (70-99) 260 mg/dL (70-99) White Blood Count 14.7 x10^3/uL (4.0-11.0) Red Blood Count 3.32 x10^6/uL (4.30-5.70) Hemoglobin 10.4 g/dL (13.0-17.5) Hematocrit 31.7 % (39.0-53.0) Mean Corpuscular Volume 95 fL (79-100) Mean Corpuscular Hemoglobin 31 pg (25-35) Mean Corpuscular Hemoglobin Concent 33 g/dL (31-37) Red Cell Distribution Width 13.4 % (11.5-14.5) Platelet Count 217 x10^3/uL (140-400) Neutrophils (%) (Auto) 80 % (31-73) Lymphocytes (%) (Auto) 10 % (24-48) Monocytes (%) (Auto) 8 % (0-9) Eosinophils (%) (Auto) 2 % (0-3) Basophils (%) (Auto) 0 % (0-3) Neutrophils # (Auto) 11.8 x10^3uL (1.8-7.7) Lymphocytes # (Auto) 1.5 x10^3/uL (1.0-4.8) Monocytes # (Auto) 1.1 x10^3/uL (0.0-1.1) Eosinophils # (Auto) 0.3 x10^3/uL (0.0-0.7) Basophils # (Auto) 0.0 x10^3/uL (0.0-0.2) BUN/Creatinine Ratio 17 (6-20) Total Bilirubin 0.5 mg/dL (0.2-1.0) Aspartate Amino Transf (AST/SGOT) 18 U/L (15-37) Alanine Aminotransferase (ALT/SGPT) 11 U/L (16-63) Alkaline Phosphatase 94 U/L (46-116) Total Protein 6.7 g/dL (6.4-8.2) Albumin 2.2 g/dL (3.4-5.0) Albumin/Globulin Ratio 0.5 (1.0-1.7) Test 05/15/18 08:06 05/15/18 12:37 05/15/18 12:51 Glucose (Fingerstick) 159 mg/dL (70-99) 58 mg/dL (70-99) 64 mg/dL (70-99) Results All relevant outside records, renal labs, imaging studies, telemetry/EKG's were reviewed. ONDINA YAO MD May 15, 2018 13:13
[2018-05-15] MEDS: VANCOMYCIN PER PHARMACY MC PRN (14:34)
[2018-05-15 15:00] VITALS: BP 105/39
--- NOTE | 2018-05-15 15:20 | PDOC ---
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 Change from biphasic to monophasic at the right superficial femoral artery to popliteal artery suggests a superficial femoral artery stenosis Decreased velocity in the distal popliteal suggests popliteal stenosis. No flow in the dorsalis pedis on the right suggests occlusion the right anterior tibial. Diabetes type 2 with HX hypoglycemic episodes- Generalized weakness- ESRD on dialysis Saturday, noncompliance x 1 week with dialysis Anemia of ESRD Hypertension controlled Indwelling right HD catheter Right calcaneal wound s/p debridement, excision subcutaneous tissue and skin . Right big toe ulcer - increased redness 2 small ulcers OF left lateral foot. PAD ESRD/HD via AVF History of Present Illness History of Present Illness wound care consult following BKA, Dr. Walters, this AM, went well may be able to DC at POD #2, to snu, soc service consulted Vitals Vitals Vital Signs Date Time Temp Pulse Resp B/P (MAP) Pulse Ox O2 Delivery O2 Flow Rate FiO2 05/15/18 15:15 99 Room Air 2.0 05/15/18 15:00 98.0 73 18 105/39 (61) 98.0 Physical Exam Physical Exam GENERAL: NAD, coop, in bed, in HD HEENT: Pupils are equally round. Normal conjunctivae. Oral cavity: Pharynx pink and moist. NECK: Supple. LUNGS: Clear to auscultation. HEART: S1 and S2. Pacemaker. ABDOMEN: Obese, soft and nontender with bowel sounds present. EXTREMITIES: No gross edema or cyanosis. R BKA dressed, MANOLO in place. RUE-AV fistula unremarkable. LLE [place] SKIN: Warm without generalized rash. coccyx ulcer (pic) NEUROLOGIC: nonfocal responds appropriately. PIV ok General: Alert, No acute distress Heart: Regular rate Lungs: Clear, Other Abdomen: Soft, No tenderness Extremities: Other (Bilateral foot dressings in place. Refer to yesterday dictation for descripton of ulcers.) Skin: No breakdown Labs LABS Laboratory Tests Test 05/14/18 16:51 05/14/18 20:44 05/15/18 06:45 05/15/18 08:06 Glucose (Fingerstick) 277 mg/dL (70-99) 260 mg/dL (70-99) 159 mg/dL (70-99) White Blood Count 14.7 x10^3/uL (4.0-11.0) Red Blood Count 3.32 x10^6/uL (4.30-5.70) Hemoglobin 10.4 g/dL (13.0-17.5) Hematocrit 31.7 % (39.0-53.0) Mean Corpuscular Volume 95 fL (79-100) Mean Corpuscular Hemoglobin 31 pg (25-35) Mean Corpuscular Hemoglobin Concent 33 g/dL (31-37) Red Cell Distribution Width 13.4 % (11.5-14.5) Platelet Count 217 x10^3/uL (140-400) Neutrophils (%) (Auto) 80 % (31-73) Lymphocytes (%) (Auto) 10 % (24-48) Monocytes (%) (Auto) 8 % (0-9) Eosinophils (%) (Auto) 2 % (0-3) Basophils (%) (Auto) 0 % (0-3) Neutrophils # (Auto) 11.8 x10^3uL (1.8-7.7) Lymphocytes # (Auto) 1.5 x10^3/uL (1.0-4.8) Monocytes # (Auto) 1.1 x10^3/uL (0.0-1.1) Eosinophils # (Auto) 0.3 x10^3/uL (0.0-0.7) Basophils # (Auto) 0.0 x10^3/uL (0.0-0.2) Sodium Level 134 mmol/L (136-145) Potassium Level 4.8 mmol/L (3.5-5.1) Chloride Level 96 mmol/L (98-107) Carbon Dioxide Level 26 mmol/L (21-32) Anion Gap 12 (6-14) Blood Urea Nitrogen 72 mg/dL (8-26) Creatinine 4.2 mg/dL (0.7-1.3) Estimated GFR (Cockcroft-Gault) 13.9 BUN/Creatinine Ratio 17 (6-20) Glucose Level 192 mg/dL (70-99) Calcium Level 8.7 mg/dL (8.5-10.1) Total Bilirubin 0.5 mg/dL (0.2-1.0) Aspartate Amino Transf (AST/SGOT) 18 U/L (15-37) Alanine Aminotransferase (ALT/SGPT) 11 U/L (16-63) Alkaline Phosphatase 94 U/L (46-116) Total Protein 6.7 g/dL (6.4-8.2) Albumin 2.2 g/dL (3.4-5.0) Albumin/Globulin Ratio 0.5 (1.0-1.7) Test 05/15/18 12:37 05/15/18 12:51 05/15/18 13:33 Glucose (Fingerstick) 58 mg/dL (70-99) 64 mg/dL (70-99) 71 mg/dL (70-99) Assessment and Plan Assessmemt and Plan Problems Medical Problems: (1) Open wound of right foot Status: Acute (2) Osteomyelitis Status: Acute Comment Review of Relevant I have reviewed the following items sukumar (where applicable) has been applied. Labs Laboratory Tests Test 05/13/18 16:51 05/13/18 20:11 05/14/18 06:42 05/14/18 09:11 Glucose (Fingerstick) 204 mg/dL (70-99) 145 mg/dL (70-99) 84 mg/dL (70-99) 86 mg/dL (70-99) Test 05/14/18 11:27 05/14/18 14:10 05/14/18 16:51 05/14/18 20:44 Glucose (Fingerstick) 123 mg/dL (70-99) 277 mg/dL (70-99) 260 mg/dL (70-99) Sodium Level 134 mmol/L (136-145) Potassium Level 4.5 mmol/L (3.5-5.1) Chloride Level 95 mmol/L (98-107) Carbon Dioxide Level 25 mmol/L (21-32) Anion Gap 14 (6-14) Blood Urea Nitrogen 62 mg/dL (8-26) Creatinine 3.8 mg/dL (0.7-1.3) Estimated GFR (Cockcroft-Gault) 15.6 Glucose Level 207 mg/dL (70-99) Calcium Level 8.5 mg/dL (8.5-10.1) Test 05/15/18 06:45 05/15/18 08:06 05/15/18 12:37 05/15/18 12:51 White Blood Count 14.7 x10^3/uL (4.0-11.0) Red Blood Count 3.32 x10^6/uL (4.30-5.70) Hemoglobin 10.4 g/dL (13.0-17.5) Hematocrit 31.7 % (39.0-53.0) Mean Corpuscular Volume 95 fL (79-100) Mean Corpuscular Hemoglobin 31 pg (25-35) Mean Corpuscular Hemoglobin Concent 33 g/dL (31-37) Red Cell Distribution Width 13.4 % (11.5-14.5) Platelet Count 217 x10^3/uL (140-400) Neutrophils (%) (Auto) 80 % (31-73) Lymphocytes (%) (Auto) 10 % (24-48) Monocytes (%) (Auto) 8 % (0-9) Eosinophils (%) (Auto) 2 % (0-3) Basophils (%) (Auto) 0 % (0-3) Neutrophils # (Auto) 11.8 x10^3uL (1.8-7.7) Lymphocytes # (Auto) 1.5 x10^3/uL (1.0-4.8) Monocytes # (Auto) 1.1 x10^3/uL (0.0-1.1) Eosinophils # (Auto) 0.3 x10^3/uL (0.0-0.7) Basophils # (Auto) 0.0 x10^3/uL (0.0-0.2) Sodium Level 134 mmol/L (136-145) Potassium Level 4.8 mmol/L (3.5-5.1) Chloride Level 96 mmol/L (98-107) Carbon Dioxide Level 26 mmol/L (21-32) Anion Gap 12 (6-14) Blood Urea Nitrogen 72 mg/dL (8-26) Creatinine 4.2 mg/dL (0.7-1.3) Estimated GFR (Cockcroft-Gault) 13.9 BUN/Creatinine Ratio 17 (6-20) Glucose Level 192 mg/dL (70-99) Calcium Level 8.7 mg/dL (8.5-10.1) Total Bilirubin 0.5 mg/dL (0.2-1.0) Aspartate Amino Transf (AST/SGOT) 18 U/L (15-37) Alanine Aminotransferase (ALT/SGPT) 11 U/L (16-63) Alkaline Phosphatase 94 U/L (46-116) Total Protein 6.7 g/dL (6.4-8.2) Albumin 2.2 g/dL (3.4-5.0) Albumin/Globulin Ratio 0.5 (1.0-1.7) Glucose (Fingerstick) 159 mg/dL (70-99) 58 mg/dL (70-99) 64 mg/dL (70-99) Test 05/15/18 13:33 Glucose (Fingerstick) 71 mg/dL (70-99) Laboratory Tests Test 05/14/18 16:51 05/14/18 20:44 05/15/18 06:45 05/15/18 08:06 Glucose (Fingerstick) 277 mg/dL (70-99) 260 mg/dL (70-99) 159 mg/dL (70-99) White Blood Count 14.7 x10^3/uL (4.0-11.0) Red Blood Count 3.32 x10^6/uL (4.30-5.70) Hemoglobin 10.4 g/dL (13.0-17.5) Hematocrit 31.7 % (39.0-53.0) Mean Corpuscular Volume 95 fL (79-100) Mean Corpuscular Hemoglobin 31 pg (25-35) Mean Corpuscular Hemoglobin Concent 33 g/dL (31-37) Red Cell Distribution Width 13.4 % (11.5-14.5) Platelet Count 217 x10^3/uL (140-400) Neutrophils (%) (Auto) 80 % (31-73) Lymphocytes (%) (Auto) 10 % (24-48) Monocytes (%) (Auto) 8 % (0-9) Eosinophils (%) (Auto) 2 % (0-3) Basophils (%) (Auto) 0 % (0-3) Neutrophils # (Auto) 11.8 x10^3uL (1.8-7.7) Lymphocytes # (Auto) 1.5 x10^3/uL (1.0-4.8) Monocytes # (Auto) 1.1 x10^3/uL (0.0-1.1) Eosinophils # (Auto) 0.3 x10^3/uL (0.0-0.7) Basophils # (Auto) 0.0 x10^3/uL (0.0-0.2) Sodium Level 134 mmol/L (136-145) Potassium Level 4.8 mmol/L (3.5-5.1) Chloride Level 96 mmol/L (98-107) Carbon Dioxide Level 26 mmol/L (21-32) Anion Gap 12 (6-14) Blood Urea Nitrogen 72 mg/dL (8-26) Creatinine 4.2 mg/dL (0.7-1.3) Estimated GFR (Cockcroft-Gault) 13.9 BUN/Creatinine Ratio 17 (6-20) Glucose Level 192 mg/dL (70-99) Calcium Level 8.7 mg/dL (8.5-10.1) Total Bilirubin 0.5 mg/dL (0.2-1.0) Aspartate Amino Transf (AST/SGOT) 18 U/L (15-37) Alanine Aminotransferase (ALT/SGPT) 11 U/L (16-63) Alkaline Phosphatase 94 U/L (46-116) Total Protein 6.7 g/dL (6.4-8.2) Albumin 2.2 g/dL (3.4-5.0) Albumin/Globulin Ratio 0.5 (1.0-1.7) Test 05/15/18 12:37 05/15/18 12:51 05/15/18 13:33 Glucose (Fingerstick) 58 mg/dL (70-99) 64 mg/dL (70-99) 71 mg/dL (70-99) Microbiology 05/11/18 Blood Culture - Preliminary, Resulted NO GROWTH AFTER 4 DAYS 05/13/18 Urine Culture - Final, Complete 05/13/18 Urine Culture Result 1 (RIANNA) - Final, Complete Medications Current Medications Vancomycin HCl (Vanco Per Pharmacy) 1 each PRN DAILY PRN MC SEE COMMENTS Last administered on 05/15/18at 14:34; Start 05/09/18 at 14:15 Piperacillin Sod/ Tazobactam Sod (Zosyn Per Pharmacy) 1 each PRN DAILY PRN MC SEE COMMENTS; Start 05/09/18 at 14:15 Piperacillin Sod/ Tazobactam Sod 2.25 gm/Sodium Chloride 50 ml @ 100 mls/hr 1X ONCE IV Last administered on 05/09/18 14:52; Start 05/09/18 at 14:15; Stop 05/09/18 at 14:44; Status DC Vancomycin HCl 2 gm/Sodium Chloride 500 ml @ 250 mls/hr 1X ONCE IV Last administered on 05/09/18 15:28; Start 05/09/18 at 15:00; Stop 05/09/18 at 16:59 ; Status DC Ondansetron HCl (Zofran) 4 mg PRN Q8HRS PRN IV NAUSEA/VOMITING; Start 05/09/18 at 15:15; Stop 05/10/18 at 15:14; Status DC Morphine Sulfate (Morphine Sulfate) 2 mg PRN Q2HR PRN IV PAIN Last administered on 05/10/18 06:43; Start 05/09/18 at 15:15; Stop 05/10/18 at 15:14 ; Status DC Piperacillin Sod/ Tazobactam Sod 2.25 gm/Sodium Chloride 50 ml @ 100 mls/hr Q8HRS IV Last administered on 05/15/18 14:31; Start 05/09/18 at 22:00 Vancomycin HCl (Vancomycin Random Level) 1 each 1X ONCE MC Last administered on 05/12/18 06:00; Start 05/12/18 at 06:00; Stop 05/12/18 at 06:01; Status DC Lactobacillus Rhamnosus (Culturelle) 1 cap BID PO Last administered on 12:29; Start 05/09/18 at 21:00 Aspirin (Ecotrin) 81 mg DAILYWBKFT PO Last administered on 05/15/18 12:29; Start 05/10/18 at 09:00 Vitamin D (Vitamin D3) 1,000 unit DAILY PO Last administered on 05/15/18 12:29 ; Start 05/10/18 at 09:00 Clopidogrel Bisulfate (Plavix) 75 mg DAILY PO Last administered on 05/15/18 12 :29; Start 05/10/18 at 09:00 Acetaminophen/ Hydrocodone Bitart (Lortab 5/325) 1 tab PRN Q4HRS PRN PO pain MILD TO MOD Last administered on 05/14/18at 03:31; Start 05/10/18 at 08:45 Insulin Glargine (Lantus) 20 units QHS SQ Last administered on 05/14/18 21:50 ; Start 05/10/18 at 21:00 Metoprolol Tartrate (Lopressor) 25 mg BID PO Last administered on 05/14/18 21: 32; Start 05/10/18 at 09:00 Sodium Bicarbonate (Sodium Bicarbonate) 650 mg BID PO Last administered on 05/15 12:29; Start 05/10/18 at 09:00 Tamsulosin HCl (Flomax) 0.4 mg DAILY PO Last administered on 05/15/18 12:29; Start 05/10/18 at 09:00 Trazodone HCl (Desyrel) 25 mg PRN QHS PRN PO INSOMNIA; Start 05/10/18 at 08:45 Trazodone HCl (Desyrel) 150 mg QHS PO Last administered on 05/14/18 21:32; Start 05/10/18 at 21:00 Bumetanide (Bumex) 2 mg DAILY PO Last administered on 05/12/18 09:23; Start at 09:30 Insulin Human Lispro (HumaLOG) 10 units TIDWMEALS SQ Last administered on 09:43; Start 05/10/18 at 12:00 Metolazone (Zaroxolyn) 5 mg DAILY PO Last administered on 05/12/18 09:24; Start 05/10/18 at 09:30 Simvastatin (Zocor) 80 mg QHS PO Last administered on 05/14/18 21:32; Start at 21:00 Sertraline HCl (Zoloft) 100 mg DAILY PO Last administered on 05/15/18at 12:30; Start 05/10/18 at 09:30 Sodium Chloride 1,000 ml @ 1,000 mls/hr Q1H PRN IV hypotension; Start 05/10/18 at 10:59; Stop 05/10/18 at 16:58; Status DC Sodium Chloride 1,000 ml @ 400 mls/hr Q2H30M PRN IV PATENCY; Start 05/10/18 at 10:59; Stop 05/10/18 at 22:58; Status DC Info (PHARMACY MONITORING -- do not chart) 1 each PRN DAILY PRN MC SEE COMMENTS ; Start 05/10/18 at 11:00 Info (PHARMACY MONITORING -- do not chart) 1 each PRN DAILY PRN MC SEE COMMENTS ; Start 05/10/18 at 11:00; Status UNV Vancomycin HCl 500 mg/Sodium Chloride 100 ml @ 100 mls/hr 1X ONCE IV Last administered on 05/11/18at 14:31; Start 05/11/18 at 15:00; Stop 05/11/18 at 15:59 ; Status DC Sodium Chloride 1,000 ml @ 1,000 mls/hr Q1H PRN IV hypotension; Start 05/12/18 at 10:30; Stop 05/12/18 at 19:02; Status DC Albumin Human 200 ml @ 200 mls/hr 1X PRN PRN IV Hypotension; Start 05/12/18 at 10:30; Stop 05/12/18 at 16:29; Status DC Sodium Chloride (Normal Saline Flush) 10 ml 1X PRN PRN IV AP catheter pack; Start 05/12/18 at 10:30; Stop 05/12/18 at 18:00; Status DC Sodium Chloride (Normal Saline Flush) 10 ml 1X PRN PRN IV [employer] catheter pack; Start 05/12/18 at 10:30; Stop 05/12/18 at 18:00; Status DC Sodium Chloride 1,000 ml @ 400 mls/hr Q2H30M PRN IV PATENCY; Start 05/12/18 at 10:30; Stop 05/12/18 at 18:00; Status DC Info (PHARMACY MONITORING -- do not chart) 1 each PRN DAILY PRN MC SEE COMMENTS ; Start 05/12/18 at 10:30; Status UNV Info (PHARMACY MONITORING -- do not chart) 1 each PRN DAILY PRN MC SEE COMMENTS ; Start 05/12/18 at 10:30; Status UNV Micafungin Sodium 100 mg/Dextrose 100 ml @ 100 mls/hr Q24H IV Last administered on 05/15/18at 12:28; Start 05/12/18 at 11:00 Dextrose (Dextrose 50%-Water Syringe) 12.5 gm PRN Q15MIN PRN IV SEE COMMENTS Last administered on 05/12/18at 11:56; Start 05/12/18 at 11:45 Vancomycin HCl 500 mg/Sodium Chloride 100 ml @ 100 mls/hr QMWF@1600 IV Last administered on 05/14/18at 17:03; Start 05/12/18 at 16:00; Stop 05/15/18 at 14:26 ; Status DC Sodium Chloride 1,000 ml @ 1,000 mls/hr 1X ONCE IV Last administered on at 09:16; Start 05/13/18 at 09:15; Stop 05/13/18 at 10:14; Status DC Ondansetron HCl (Zofran) 4 mg PRN Q6HRS PRN IV NAUSEA/VOMITING; Start 05/14/18 at 07:00; Stop 05/15/18 at 06:59; Status DC Fentanyl Citrate (Fentanyl 2ml Vial) 25 mcg PRN Q5MIN PRN IV MILD PAIN; Start 05/14/18 at 07:00; Stop 05/15/18 at 06:59; Status DC Fentanyl Citrate (Fentanyl 2ml Vial) 50 mcg PRN Q5MIN PRN IV MODERATE TO SEVERE PAIN Last administered on 05/14/18at 09:55; Start 05/14/18 at 07:00; Stop 05/15/18 at 06:59; Status DC Morphine Sulfate (Morphine Sulfate) 1 mg PRN Q10MIN PRN IV SEVERE PAIN; Start 05/14/18 at 07:00; Stop 05/15/18 at 06:59; Status DC Ringer's Solution 1,000 ml @ 30 mls/hr Q24H IV ; Start 05/14/18 at 07:00; Stop 05/14/18 at 18:59; Status DC Lidocaine HCl (Xylocaine-Mpf 1% 2ml Vial) 2 ml PRN 1X PRN ID IV START; Start at 07:00; Stop 05/15/18 at 06:59; Status DC Hydromorphone HCl (Dilaudid) 0.5 mg PRN Q10MIN PRN IV SEV PAIN, Second choice; Start 05/14/18 at 07:00; Stop 05/15/18 at 06:59; Status DC Prochlorperazine Edisylate (Compazine) 5 mg PACU PRN PRN IV NAUSEA, MRX1; Start 05/14/18 at 07:00; Stop 05/15/18 at 06:59; Status DC Propofol 20 ml @ As Directed STK-MED ONCE IV ; Start 05/14/18 at 06:38; Stop at 06:39; Status DC Lidocaine HCl (Lidocaine Pf 2% Vial) 5 ml STK-MED ONCE .ROUTE ; Start 05/14/18 at 06:38; Stop 05/14/18 at 06:39; Status DC Dexamethasone Sodium Phosphate (Decadron) 20 mg STK-MED ONCE .ROUTE ; Start at 06:38; Stop 05/14/18 at 06:39; Status DC Ondansetron HCl (Zofran) 4 mg STK-MED ONCE .ROUTE ; Start 05/14/18 at 06:38; Stop 05/14/18 at 06:39; Status DC Bacitracin (Bacitracin) 50,000 unit STK-MED ONCE IRR ; Start 05/14/18 at 07:21; Stop 05/14/18 at 07:22; Status DC Fentanyl Citrate (Fentanyl 2ml Vial) 100 mcg STK-MED ONCE .ROUTE ; Start at 07:21; Stop 05/14/18 at 07:22; Status DC Ephedrine Sulfate (Akovaz) 50 mg STK-MED ONCE .ROUTE ; Start 05/14/18 at 07:38; Stop 05/14/18 at 07:39; Status DC Phenylephrine HCl (Kiran-Synephrine Inj) 10 mg STK-MED ONCE .ROUTE ; Start at 07:49; Stop 05/14/18 at 07:50; Status DC Cefazolin Sodium/ Dextrose 50 ml @ As Directed STK-MED ONCE IV Last administered on 05/14/18at 08:24; Start 05/14/18 at 08:24; Stop 05/14/18 at 08:25 ; Status DC Tobramycin Sulfate (Tobramycin Powder) 1.2 gm STK-MED ONCE .ROUTE ; Start at 08:24; Stop 05/14/18 at 08:25; Status DC Sevoflurane (Ultane) 90 ml STK-MED ONCE IH ; Start 05/14/18 at 08:28; Stop 05/14 at 08:29; Status DC Sevoflurane (Ultane) 60 ml STK-MED ONCE IH ; Start 05/14/18 at 08:28; Stop 05/14 at 08:29; Status DC Sodium Chloride (SODIUM CHLORIDE 20ml) 20 ml STK-MED ONCE IJ ; Start 05/14/18 at 08:45; Stop 05/14/18 at 08:46; Status DC Morphine Sulfate (Morphine Sulfate) 4 mg PRN Q2HR PRN IV SEVERE PAIN Last administered on 05/15/18at 14:30; Start 05/14/18 at 09:00 Oxycodone/ Acetaminophen (Percocet 5/325) 1 tab PRN Q4HRS PRN PO MODERATE PAIN ; Start 05/14/18 at 09:00 Oxycodone/ Acetaminophen (Percocet 5/325) 2 tab PRN Q4HRS PRN PO SEVERE PAIN Last administered on 05/15/18at 15:15; Start 05/14/18 at 09:00 Fentanyl Citrate (Fentanyl 2ml Vial) 100 mcg STK-MED ONCE .ROUTE ; Start at 09:12; Stop 05/14/18 at 09:13; Status DC Fentanyl Citrate (Fentanyl 2ml Vial) 100 mcg STK-MED ONCE .ROUTE ; Start at 09:35; Stop 05/14/18 at 09:36; Status DC Sodium Chloride 500 ml @ 500 mls/hr 1X ONCE IV Last administered on at 14:04; Start 05/14/18 at 12:45; Stop 05/14/18 at 13:44; Status DC Oxycodone HCl (Roxicodone) 10 mg PRN Q6HRS PRN PO SEVERE PAIN Last administered on 05/15/18at 03:14; Start 05/14/18 at 12:45 Sodium Chloride 1,000 ml @ 1,000 mls/hr Q1H PRN IV hypotension; Start 05/15/18 at 09:34; Stop 05/15/18 at 15:33 Sodium Chloride 1,000 ml @ 400 mls/hr Q2H30M PRN IV PATENCY; Start 05/15/18 at 09:34; Stop 05/15/18 at 21:33 Info (PHARMACY MONITORING -- do not chart) 1 each PRN DAILY PRN MC SEE COMMENTS ; Start 05/15/18 at 09:45; Status UNV Info (PHARMACY MONITORING -- do not chart) 1 each PRN DAILY PRN MC SEE COMMENTS ; Start 05/15/18 at 09:45 Active Scripts Active Lantus Solostar (Insulin Glargine,Hum.rec.anlog) 100 Unit/1 Ml Insuln.pen 20 Units SQ QHS 30 Days Vancomycin Hcl 1 Gm Vial 1 Each MWF WITH DIALYSIS PRN 14 Days [place] 5-325 Tablet (Acetaminophen/Hydrocodone Bitart) 1 Each Tablet 1-2 Tab PO Q4-6HRS 6 Days Aspirin Ec (Aspirin) 81 Mg Tablet.dr 81 Mg PO DAILYWBKFT 30 Days Flomax (Tamsulosin Hcl) 0.4 Mg Cap.er.24h 0.4 Mg PO DAILY Reported Trazodone Hcl 50 Mg Tablet 0.5 Tab PO PRN 1X Trazodone Hcl 50 Mg Tablet 3 Tab PO QHS Lisinopril 20 Mg Tablet 1 Tab PO DAILY Crestor (Rosuvastatin Calcium) 20 Mg Tablet 0.5 Tab PO DAILY Plavix (Clopidogrel Bisulfate) 75 Mg Tablet 75 Mg PO DAILY Sodium Bicarbonate 650 Mg Tablet 650 Mg PO BID Sertraline Hcl 100 Mg Tablet 100 Mg PO DAILY Novolog (Insulin Aspart) 100 Unit/1 Ml Cartridge 10 Unit SQ TIDAC Metoprolol Tartrate 25 Mg Tablet 1 Tab PO BID Metolazone 5 Mg Tablet 5 Mg PO DAILY Vitamin D3 (Cholecalciferol (Vitamin D3)) 1,000 Unit Tablet 1 Tab PO DAILY Bumetanide 2 Mg Tablet 1 Tab PO DAILY Vitals/I & O Vital Sign - Last 24 Hours 05/14/18 05/14/18 05/14/18 05/14/18 17:01 17:01 19:16 20:15 Temp 98.3 98.3 Pulse 78 Resp 18 B/P (MAP) 107/55 (72) Pulse Ox 95 95 95 O2 Delivery Nasal Cannula Nasal Cannula Room Air Nasal Cannula O2 Flow Rate 2.0 2.0 2.0 05/14/18 05/14/18 05/14/18 05/15/18 21:32 22:13 23:01 03:14 Temp 98.1 98.1 Pulse 78 66 Resp 20 B/P (MAP) 107/55 110/45 (66) Pulse Ox 97 O2 Delivery Nasal Cannula Room Air Nasal Cannula O2 Flow Rate 2.0 2.0 05/15/18 05/15/18 05/15/18 05/15/18 03:15 04:15 06:03 07:00 Temp 98.8 98.2 98.8 98.2 Pulse 68 55 Resp 20 20 B/P (MAP) 110/49 (69) 106/46 (66) Pulse Ox 95 99 O2 Delivery Room Air Nasal Cannula Nasal Cannula Room Air O2 Flow Rate 2.0 2.0 05/15/18 05/15/18 05/15/18 05/15/18 08:00 09:00 09:28 09:28 Pulse 55 B/P (MAP) 106/46 Pulse Ox 99 99 O2 Delivery Room Air Nasal Cannula Nasal Cannula O2 Flow Rate 2.0 2.0 05/15/18 05/15/18 05/15/18 05/15/18 12:28 12:36 14:30 15:00 Temp 98.0 98.0 Pulse 73 Resp 18 B/P (MAP) 105/39 (61) Pulse Ox 99 99 99 94 O2 Delivery Room Air Room Air Room Air Room Air O2 Flow Rate 2.0 2.0 2.0 05/15/18 05/15/18 15:10 15:15 Pulse Ox 99 99 O2 Delivery Room Air Room Air O2 Flow Rate 2.0 2.0 Intake and Output 05/14/18 05/14/18 05/15/18 15:00 23:00 07:00 Intake Total 650 ml Output Total 200 ml 90 ml 300 ml Balance 450 ml -90 ml -300 ml Nutrition Consultation Dietary Evaluation: Recommendations by RD: Increase Calorie Intake, Protein supplementation, Add supplement feedings Comments: Pt. states he uses an adaptive spoon at home due to difficulty holding onto spoon when feeding himself. Notified OT. Expected Outcomes/Goals: P.O. intake >75% Supplement intake Continue Renal/ADA diet Malnutrition Findings: Food and Nutrition Intake (Mod: <75% est energy req 7days Body Fat Depletion (Non Severe: Mild Depletion Weight Status: Obese VICENTE FLORES MD May 15, 2018 15:20
--- NOTE | 2018-05-15 15:52 | NUR ---
Patient had a 3 beat run of Charles Mendiola MD notfied no new orders at this time. Continue to monitor patient
[2018-05-15 19:00] VITALS: BP 112/36
[2018-05-15] MEDS: SIMVASTATIN 40 MG TABLET. PO SCH (20:21)
[2018-05-15] MEDS: INSULIN GLARGINE 300 UNITS/3 ML INSULN.PEN. SQ SCH (21:56)
[2018-05-15] MEDS ORDERED: INSULIN GLARGINE 300 UNITS/3 ML INSULN.PEN. SQ SCH (22:00)
[2018-05-15] MEDS: traZODone 50 MG TABLET. PO SCH (22:15)
[2018-05-15 23:00] VITALS: BP 98/65
[2018-05-16 03:00] VITALS: BP 110/49
[2018-05-16] MEDS: MORPHINE SULFATE 4 MG/ML VIAL. IV PRN ×2 (06:04→08:13)
[2018-05-16] MEDS: PIPERACILLIN/TAZOBACTAM 2.25 GM in IV NORMAL SALINE 50ML 50 ML IV SCH (06:05)
[2018-05-16 07:00] VITALS: BP 114/56
[2018-05-16] MEDS: INSULIN LISPRO 300 UNITS/3 ML INSULN.PEN. SQ SCH ×2 (08:00→12:00)
--- NOTE | 2018-05-16 08:08 | PDOC ---
Provider Note Provider Note S: Pt resting comfortably in bed, without complaints. Has worked with PT. Reports doing knee extension exercises intermittently. Reports good appetite and intake. Pt has chosen to go to [facility] upon discharge. O: VSS, afebrile Alert, oriented, in no apparent distress Respirations non labored Right arm fistula functioning appropriately Right BKA MANOLO removed, incision clean, dry and intact. Without surrounding erythema. Minimal drainage from drain site. Right Knee extends fully to 180 degrees active and passively Left leg bypass pulse present, foot warm. Lateral food wounds dry, without surrounding erythema. A/P: POD#2 right BKA - Pt doing well post operatively. Pain controlled. - Continue PT/OT, ok to be full weight bearing left foot - Drain removed today. Dry dressing changes over right BKA incision. Ok to leave incision open to air starting tomorrow. Do not shower for 48 hours. - Continue AmbuSheild to right BKA when not doing knee extension exercises. - cont abx per ID Left foot DM ulcers - stable, continue wound care, dry dressings - Pt can be full weight bearing on left foot for PT Anemia - stable ESRD - successful dialysis yesterday DM - continue management per primary Pt is ok for discharge to rehab from vascular standpoint once pain controlled on PO meds and medically stable. He will follow up with us in our office in 3-4 weeks. MIGUEL WASSERMAN May 16, 2018 08:08
[2018-05-16] MEDS: metOLazone 2.5 MG TABLET PO SCH (08:13)
[2018-05-16] MEDS: CHOLECALCIFEROL (VITAMIN D3) 1,000 UNIT TABLET PO SCH (08:14)
[2018-05-16] MEDS: SODIUM BICARBONATE 650 MG TABLET. PO SCH (08:14)
[2018-05-16] MEDS: ASPIRIN ENTERIC COATED 81 MG TABLET.DR. PO SCH (08:14)
[2018-05-16] MEDS: CLOPIDOGREL BISULFATE 75 MG TABLET PO SCH (08:14)
[2018-05-16] MEDS: BUMETANIDE 1 MG TABLET. PO SCH (08:14)
[2018-05-16] MEDS: TAMSULOSIN 0.4 MG CAP.ER.24H. PO SCH (08:14)
[2018-05-16] MEDS: SERTRALINE 50 MG TABLET. PO SCH (08:14)
[2018-05-16] MEDS: LACTOBACILLUS RHAMNOSUS GG 1 CAPSULE. PO SCH (08:14)
[2018-05-16] MEDS: METOPROLOL TART IMMED RELEASE 25 MG TABLET. PO SCH (08:22)
--- NOTE | 2018-05-16 08:48 | PDOC ---
Infectious Disease Note Subjective Subjective pain but controlled. Doing well + Flatus Denies chills/aches/N/V/D/SOA/Rash Vital Sign Vital Signs Vital Signs Date Time Temp Pulse Resp B/P (MAP) Pulse Ox O2 Delivery O2 Flow Rate FiO2 05/16/18 08:22 78 114/56 05/16/18 08:13 16 Room Air 05/16/18 07:00 99.0 95 99.0 05/15/18 18:58 2.0 Physical Exam PHYSICAL EXAM GENERAL: NAD, coop, in bed, in HD HEENT: Pupils are equally round. Normal conjunctivae. Oral cavity: Pharynx pink and moist. NECK: Supple. LUNGS: Clear to auscultation. HEART: S1 and S2. Pacemaker. ABDOMEN: Obese, soft and nontender with bowel sounds present. EXTREMITIES: No gross edema or cyanosis. R BKA dressed. RUE-AV fistula unremarkable. LLE foot wound dry with min erythema and no edema SKIN: Warm without generalized rash. coccyx ulcer (pic) NEUROLOGIC: nonfocal responds appropriately. PIV ok Labs Lab Laboratory Tests Test 05/15/18 12:37 05/15/18 12:51 05/15/18 13:33 05/15/18 17:04 Glucose (Fingerstick) 58 mg/dL (70-99) 64 mg/dL (70-99) 71 mg/dL (70-99) 87 mg/dL (70-99) Test 05/15/18 20:45 05/16/18 08:01 Glucose (Fingerstick) 88 mg/dL (70-99) 56 mg/dL (70-99) Micro Microbiology 05/11/18 Blood Culture - Preliminary, Resulted NO GROWTH AFTER 2 DAYS Objective Assessment Fever - better Leukocytosis - better - but now s/p BKA and Dexamethasone 05/14 S/p Right BKA 05/14 am Large nonhealing calcaneal wound with suspected osteo on x-ray/exam. ESR 76 -h/o debridement subcutaneous tissue and skin, 02/2018. no cultures and CT neg -d/c home on vanc and Augmentin x 3 weeks on 03/27/18. Left foot ulcers Coccyx ulcer PVD DM II CKD/HD Pacemaker h/o MRSA h/o Klebsiella (R amp) Plan Plan of Care Discontinue vanc and Zosyn, micafungin Augmentin for 5 days ok to transfer D/w nursing ID to sign off ASHLYN BRADLEY MD May 16, 2018 08:48
[2018-05-16] MEDS: DEXTROSE 50% 25 GM / 50ML DISP.SYRIN. IV PRN (08:53)
--- NOTE | 2018-05-16 09:22 | NUR ---
SW following. Spoke with pt's via phone and confirmed plan to PP upon dc. Will continue to follow.
--- NOTE | 2018-05-16 09:59 | NUR ---
IP: Pt now has 2 consecutive negative mrsa screens and may be removed from contact precautions.
[2018-05-16] MEDS ORDERED: AMOXICILLIN/K CLAV 500/125MG TABLET. PO SCH (10:00)
[2018-05-16] MEDS: oxyCODONE/APAP 5/325 1 TAB TABLET PO PRN ×2 (10:52→16:26)
[2018-05-16 11:00] VITALS: BP_SYST 87; BP_SYST 95; BP_DIAS 25; BP_DIAS 27
[2018-05-16] MEDS ORDERED: IV NORMAL SALINE 1000ML BAG 1,000 ML IV PRN ×2 (11:08)
[2018-05-16] MEDS ORDERED: ALBUMIN HUMAN 25% 200 ML IV PRN (11:15)
[2018-05-16] MEDS ORDERED: DIALYSIS PATIENT. MC PRN (11:15)
[2018-05-16] MEDS ORDERED: ACETAMINOPHEN 500 MG TABLET PO PRN (11:15)
[2018-05-16] MEDS ORDERED: diphenhydrAMINE 50 MG/ML VIAL IV PRN ×2 (11:15)
[2018-05-16] MEDS ORDERED: IV NORMAL SALINE 500ML BAG 500 ML IV ONE (11:30)
[2018-05-16 12:33] VITALS: BP 124/67
[2018-05-16] MEDS ORDERED: AMOX1TAB10 PO (13:07)
[2018-05-16] MEDS ORDERED: INSU100V34 SQ (13:07)
[2018-05-16] MEDS ORDERED: INSU100I13 SQ (13:07)
[2018-05-16] MEDS ORDERED: HYDR-3164 PO (13:07)
--- NOTE | 2018-05-16 13:08 | DISCH ---
DISCHARGE DISCHARGE INFORMATION: DISCHARGE DATE: May 16, 2018 FINAL DIAGNOSIS Problems Medical Problems: (1) Open wound of right foot Status: Acute (2) Osteomyelitis Status: Acute CONDITION ON DISCHARGE: Stable CODE STATUS: Code Status: Full NURSING HOME: SNF STAY <30 DAYS: Yes POST DISCHARGE ORDERS: ACTIVITY ORDERS: Other, see below (right BKA care, wound) WEIGHT BEARING STATUS: Non weight bearing DIET AFTER DISCHARGE: Renal WOUND/INCISION CARE: Other, see below CHECKS AFTER DISCHARGE: CHECKS AFTER DISCHARGE: Check blood press - daily, Check blood sugar, ac/hs, Weigh Yourself Daily FOLLOW-UP: PHYSICIAN FOLLOW-UP: Dr. Walters, ADDITIONAL FOLLOW-UP: primary care TREATMENT/EQUIPMENT ORDERS: ADAPTIVE EQUIPMENT NEEDED: Walker, Wheelchair Physical Therapy For: Evalulation/Treatment Occupational Therapy For: Evaluation/Treatment DISCHARGE MEDICATIONS: Home Meds Active Scripts Amoxicillin/Potassium Clav (AMOX TR-K CLV 500-125 MG TAB) 1 Each Tablet, 1 TAB PO DAILY for wound infection, #5 TAB Prov:VICENTE FLORES MD 05/16/18 Hydrocodone/Apap 5-325 (NORCO 5-325 TABLET) 1 Each Tablet, 1 TAB PO Q4-6HRS for pain for 6 Days, #30 TAB Prov:VICENTE FLORES MD 05/16/18 Insulin Glargine,Hum.rec.anlog (LANTUS SOLOSTAR) 100 Unit/1 Ml Insuln.pen, 20 UNITS SQ QHS for diabetes for 30 Days, #30 EACH Prov:RYAN ROY MD 03/27/18 Vancomycin Hcl (VANCOMYCIN HCL) 1 Gm Vial, 1 EACH MC mwf with dialysis PRN for SEE COMMENTS for 14 Days, #30 EACH Prov:RYAN ROY MD 03/27/18 Aspirin (ASPIRIN EC) 81 Mg Tablet.dr, 81 MG PO DAILYWBKFT for PAD for 30 Days, # 30 TAB.SR 11 Refills Prov:JOSE MORA MD 03/08/18 Tamsulosin Hcl (FLOMAX) 0.4 Mg Cap.er.24h, 0.4 MG PO DAILY, #30 3 Refills Prov:VICENTE FLORES MD 08/01/15 Reported Medications Trazodone Hcl (TRAZODONE HCL) 50 Mg Tablet, 0.5 TAB PO PRN 1X for mood, #30 TAB 1 Refill 03/07/18 Trazodone Hcl (TRAZODONE HCL) 50 Mg Tablet, 3 TAB PO QHS for Sleep and depression, #30 TAB 1 Refill 03/07/18 Lisinopril (LISINOPRIL) 20 Mg Tablet, 1 TAB PO DAILY for HTN, #30 TAB 5 Refills 03/07/18 Rosuvastatin Calcium (CRESTOR) 20 Mg Tablet, 0.5 TAB PO DAILY for high cholesterol, #30 TAB 5 Refills 03/07/18 Clopidogrel Bisulfate (PLAVIX) 75 Mg Tablet, 75 MG PO DAILY for TO PREVENT BLOOD CLOTS, #30 TAB 0 Refills 01/08/18 Sodium Bicarbonate (SODIUM BICARBONATE) 650 Mg Tablet, 650 MG PO BID, TAB 01/08/18 Sertraline Hcl (SERTRALINE HCL) 100 Mg Tablet, 100 MG PO DAILY for ANTI- DEPRESSANT, TAB 0 Refills 01/08/18 Insulin Aspart (NOVOLOG) 100 Unit/1 Ml Cartridge, 10 UNIT SQ TIDAC, EACH 01/07/18 Metoprolol Tartrate (METOPROLOL TARTRATE) 25 Mg Tablet, 1 TAB PO BID, #180 TAB 1 Refill 12/27/17 Metolazone (METOLAZONE) 5 Mg Tablet, 5 MG PO DAILY, #30 TAB 0 Refills 12/27/17 Cholecalciferol (Vitamin D3) (VITAMIN D3) 1,000 Unit Tablet, 1 TAB PO DAILY, # 90 TAB 3 Refills 07/30/15 Bumetanide (BUMETANIDE) 2 Mg Tablet, 1 TAB PO DAILY, #30 TAB 5 Refills 07/29/15 VICENTE FLORES MD May 16, 2018 13:08
[2018-05-16] MEDS: oxyCODONE IR 5 MG TABLET PO PRN (13:38)
--- NOTE | 2018-05-16 14:38 | DISCH ---
DISCHARGE DISCHARGE INFORMATION: DISCHARGE DATE: May 16, 2018 FINAL DIAGNOSIS Problems Medical Problems: (1) Open wound of right foot Status: Acute (2) Osteomyelitis Status: Acute CONDITION ON DISCHARGE: Stable CODE STATUS: Code Status: Full DETENTION: SNF STAY <30 DAYS: Yes POST DISCHARGE ORDERS: ACTIVITY ORDERS: Other, see below (right BKA care, wound) WEIGHT BEARING STATUS: Non weight bearing DIET AFTER DISCHARGE: Renal WOUND/INCISION CARE: Other, see below CHECKS AFTER DISCHARGE: CHECKS AFTER DISCHARGE: Check blood press - daily, Check blood sugar, ac/hs, Weigh Yourself Daily FOLLOW-UP: PHYSICIAN FOLLOW-UP: Dr. Walters, 1week ADDITIONAL FOLLOW-UP: primary care TREATMENT/EQUIPMENT ORDERS: ADAPTIVE EQUIPMENT NEEDED: Walker, Wheelchair Physical Therapy For: Evalulation/Treatment Occupational Therapy For: Evaluation/Treatment DISCHARGE MEDICATIONS: Home Meds Active Scripts Insulin Aspart (Niacinamide) (Fiasp 100 Unit/ml Vial) 100 Unit/1 Ml Vial, 7 UNIT SQ TIDAC for diabetes for 30 Days, EACH Prov:VICENTE FLORES MD 05/16/18 Insulin Glargine,Hum.rec.anlog (LANTUS SOLOSTAR) 100 Unit/1 Ml Insuln.pen, 8 UNIT SQ QHS for diabetes, #15 ML 3 Refills Prov:VICENTE FLORES MD 05/16/18 Amoxicillin/Potassium Clav (AMOX TR-K CLV 500-125 MG TAB) 1 Each Tablet, 1 TAB PO DAILY for wound infection, #5 TAB Prov:VICENTE FLORES MD 05/16/18 Hydrocodone/Apap 5-325 (NOR[place] 5-325 TABLET) 1 Each Tablet, 1 TAB PO Q4-6HRS for pain for 6 Days, #30 TAB Prov:VICENTE FLORES MD 05/16/18 Aspirin (ASPIRIN EC) 81 Mg Tablet.dr, 81 MG PO DAILYWBKFT for PAD for 30 Days, # 30 TAB.SR 11 Refills Prov:JOSE MORA MD 03/08/18 Tamsulosin Hcl (FLOMAX) 0.4 Mg Cap.er.24h, 0.4 MG PO DAILY, #30 3 Refills Prov:VICENTE FLORES MD 08/01/15 Reported Medications Trazodone Hcl (TRAZODONE HCL) 50 Mg Tablet, 3 TAB PO QHS for Sleep and depression, #30 TAB 1 Refill 03/07/18 Lisinopril (LISINOPRIL) 20 Mg Tablet, 1 TAB PO DAILY for HTN, #30 TAB 5 Refills 03/07/18 Rosuvastatin Calcium (CRESTOR) 20 Mg Tablet, 0.5 TAB PO DAILY for high cholesterol, #30 TAB 5 Refills 03/07/18 Clopidogrel Bisulfate (PLAVIX) 75 Mg Tablet, 75 MG PO DAILY for TO PREVENT BLOOD CLOTS, #30 TAB 0 Refills 01/08/18 Sodium Bicarbonate (SODIUM BICARBONATE) 650 Mg Tablet, 650 MG PO BID, TAB 01/08/18 Sertraline Hcl (SERTRALINE HCL) 100 Mg Tablet, 100 MG PO DAILY for ANTI- DEPRESSANT, TAB 0 Refills 01/08/18 Metoprolol Tartrate (METOPROLOL TARTRATE) 25 Mg Tablet, 1 TAB PO BID, #180 TAB 1 Refill 12/27/17 Metolazone (METOLAZONE) 5 Mg Tablet, 5 MG PO DAILY, #30 TAB 0 Refills 12/27/17 Cholecalciferol (Vitamin D3) (VITAMIN D3) 1,000 Unit Tablet, 1 TAB PO DAILY, # 90 TAB 3 Refills 07/30/15 Bumetanide (BUMETANIDE) 2 Mg Tablet, 1 TAB PO DAILY, #30 TAB 5 Refills 07/29/15 Discontinued Reported Medications Trazodone Hcl (TRAZODONE HCL) 50 Mg Tablet, 0.5 TAB PO PRN 1X for mood, #30 TAB 1 Refill 03/07/18 Insulin Aspart (NOVOLOG) 100 Unit/1 Ml Cartridge, 10 UNIT SQ TIDAC, EACH 01/07/18 Discontinued Scripts Insulin Glargine,Hum.rec.anlog (LANTUS SOLOSTAR) 100 Unit/1 Ml Insuln.pen, 20 UNITS SQ QHS for diabetes for 30 Days, #30 EACH Prov:RYAN ROY MD 03/27/18 Vancomycin Hcl (VANCOMYCIN HCL) 1 Gm Vial, 1 EACH mwf with dialysis PRN for SEE COMMENTS for 14 Days, #30 EACH Prov:RYAN ROY MD 03/27/18 VICENTE FLORES MD May 16, 2018 14:37
--- NOTE | 2018-05-16 14:43 | PDOC ---
SUBJECTIVE ROS s/p BKA, c/o pain today , refusing HD, was Dialyzed Yesterday OBJECTIVE Vital Signs Vital Signs Date Time Temp Pulse Resp B/P (MAP) Pulse Ox O2 Delivery O2 Flow Rate FiO2 05/16/18 13:38 18 Room Air 05/16/18 12:33 124/67 (86) 05/16/18 11:00 98.5 56 92 98.5 05/15/18 18:58 2.0 I & 0 Intake and Output 05/16/18 06:59 Intake Total 100 ml Output Total 170 ml Balance -70 ml Intake Oral 0 ml IV Total 100 ml Output Urine Total 150 ml Drainage Total 20 ml PHYSICAL EXAM Physical Exam GENERAL: NAD, HEENT: OM moist NECK: Supple. LUNGS: Clear to auscultation. HEART: S1 and S2. Pacemaker. ABDOMEN: Obese, soft and nontender EXTREMITIES: No gross edema , Rt BKA RUE-AV fistula - Thrill/Bruit+ SKIN: No rash. coccyx ulcer + DIAGNOSIS/ASSESSMENT Assessment & Plan ESRD- MWF He refusing today due to pain post BKA , BP low this am as well , repeat Normal Was Dialyzed yesterday Will Schedule for Tomorrow Large nonhealing calcaneal wound with suspected osteo on x-ray/exam. -h/o debridement subcutaneous tissue and skin d/evan home on vanc and Augmentin x 3 weeks on 03/27/18 S/P right below knee amputation Left foot ulcers/Coccyx ulcer Anemia- No indication for KVNG DM II Pacemaker COMMENT/RELEVANT DATA Meds Current Medications Medications (Trade) Dose Ordered Sig/Cherie Start Time Stop Time Status Last Admin Dose Admin Acetaminophen (Tylenol) 500 mg 1X PRN PRN 05/16/18 11:15 05/17/18 11:14 Acetaminophen/ Hydrocodone Bitart (Lortab 5/325) 1 tab PRN Q4HRS PRN 05/10/18 08:45 05/16/18 09:32 DC 05/14/18 03:31 1 TAB Albumin Human 200 ml @ 200 mls/hr 1X PRN PRN 05/16/18 11:15 05/16/18 17:14 Amoxicillin/ Clavulanate Potassium (Augmentin 500/ 125mg) 1 tab DAILY 05/16/18 10:00 05/16/18 10:52 1 TAB Aspirin (Ecotrin) 81 mg DAILYWBKFT 2/16/19 09:00 05/16/18 08:14 81 MG Bacitracin (Bacitracin) 50,000 unit STK-MED ONCE 05/14/18 07:21 05/14/18 07:22 DC Bumetanide (Bumex) 2 mg DAILY 05/10/18 09:30 05/16/18 08:14 2 MG Cefazolin Sodium/ Dextrose 50 ml @ As Directed STK-MED ONCE 05/14/18 08:24 05/14/18 08:25 DC 05/14/18 08:24 Clopidogrel Bisulfate (Plavix) 75 mg DAILY 05/10/18 09:00 05/16/18 08:14 75 MG Dexamethasone Sodium Phosphate (Decadron) 20 mg STK-MED ONCE 05/14/18 06:38 05/14/18 06:39 DC Dextrose (Dextrose 50%-Water Syringe) 12.5 gm PRN Q15MIN PRN 05/12/18 11:45 05/16/18 08:53 12.5 GM Diphenhydramine HCl (Benadryl) 25 mg 1X PRN PRN 05/16/18 11:15 05/17/18 11:14 Ephedrine Sulfate (Akovaz) 50 mg STK-MED ONCE 05/14/18 07:38 05/14/18 07:39 DC Fentanyl Citrate (Fentanyl 2ml Vial) 100 mcg STK-MED ONCE 05/14/18 09:35 05/14/18 09:36 DC Hydromorphone HCl (Dilaudid) 0.5 mg PRN Q10MIN PRN 05/14/18 07:00 05/15/18 06:59 DC Info (PHARMACY MONITORING -- do not chart) 1 each PRN DAILY PRN 05/16/18 11:15 Insulin Glargine (Lantus) 12 units QHS 05/15/18 22:00 05/16/18 10:15 DC 05/15/18 22:21 12 UNITS Insulin Human Lispro (HumaLOG) 10 units TIDWMEALS 05/10/18 12:00 05/15/18 09:43 10 UNITS Lactobacillus Rhamnosus (Culturelle) 1 cap BID 05/09/18 21:00 05/16/18 08:14 1 CAP Lidocaine HCl (Lidocaine Pf 2% Vial) 5 ml STK-MED ONCE 05/14/18 06:38 05/14/18 06:39 DC Lidocaine HCl (Xylocaine-Mpf 1% 2ml Vial) 2 ml PRN 1X PRN 05/14/18 07:00 05/15/18 06:59 DC Metolazone (Zaroxolyn) 5 mg DAILY 05/10/18 09:30 05/16/18 08:13 5 MG Metoprolol Tartrate (Lopressor) 25 mg BID 05/10/18 09:00 05/16/18 08:22 25 MG Micafungin Sodium 100 mg/Dextrose 100 ml @ 100 mls/hr Q24H 05/12/18 11:00 05/16/18 10:02 DC 05/15/18 12:28 100 MLS/HR Morphine Sulfate (Morphine Sulfate) 4 mg PRN Q2HR PRN 05/14/18 09:00 05/16/18 08:13 4 MG Ondansetron HCl (Zofran) 4 mg STK-MED ONCE 05/14/18 06:38 05/14/18 06:39 DC Oxycodone HCl (Roxicodone) 10 mg PRN Q6HRS PRN 05/14/18 12:45 05/16/18 13:38 10 MG Oxycodone/ Acetaminophen (Percocet 5/325) 2 tab PRN Q4HRS PRN 05/14/18 09:00 05/16/18 10:52 2 TAB Phenylephrine HCl (Kiran-Synephrine Inj) 10 mg STK-MED ONCE 05/14/18 07:49 05/14/18 07:50 DC Piperacillin Sod/ Tazobactam Sod (Zosyn Per Pharmacy) 1 each PRN DAILY PRN 05/09/18 14:15 05/16/18 10:05 DC Piperacillin Sod/ Tazobactam Sod 2.25 gm/Sodium Chloride 50 ml @ 100 mls/hr Q8HRS 05/09/18 22:00 05/16/18 10:02 DC 05/16/18 06:05 100 MLS/HR Prochlorperazine Edisylate (Compazine) 5 mg PACU PRN PRN 05/14/18 07:00 05/15/18 06:59 DC Propofol 20 ml @ As Directed STK-MED ONCE 05/14/18 06:38 05/14/18 06:39 DC Ringer's Solution 1,000 ml @ 30 mls/hr Q24H 05/14/18 07:00 05/14/18 18:59 DC Sertraline HCl (Zoloft) 100 mg DAILY 05/10/18 09:30 05/16/18 08:14 100 MG Sevoflurane (Ultane) 60 ml STK-MED ONCE 05/14/18 08:28 05/14/18 08:29 DC Simvastatin (Zocor) 80 mg QHS 05/10/18 21:00 05/15/18 20:21 80 MG Sodium Bicarbonate (Sodium Bicarbonate) 650 mg BID 05/10/18 09:00 05/16/18 08:14 650 MG Sodium Chloride 500 ml @ 500 mls/hr 1X ONCE 05/16/18 11:30 05/16/18 12:29 DC 05/16/18 12:28 500 MLS/HR Sodium Chloride (Normal Saline Flush) 10 ml 1X PRN PRN 05/12/18 10:30 05/12/18 18:00 DC Sodium Chloride (SODIUM CHLORIDE 20ml) 20 ml STK-MED ONCE 05/14/18 08:45 05/14/18 08:46 DC Tamsulosin HCl (Flomax) 0.4 mg DAILY 05/10/18 09:00 05/16/18 08:14 0.4 MG Tobramycin Sulfate (Tobramycin Powder) 1.2 gm STK-MED ONCE 05/14/18 08:24 05/14/18 08:25 DC Trazodone HCl (Desyrel) 150 mg QHS 05/10/18 21:00 05/15/18 22:15 150 MG Vancomycin HCl (Vanco Per Pharmacy) 1 each PRN DAILY PRN 05/09/18 14:15 05/16/18 10:02 DC 05/15/18 14:34 1 EACH Vancomycin HCl (Vancomycin Random Level) 1 each 1X ONCE 05/12/18 06:00 05/12/18 06:01 DC 05/12/18 06:00 1 EACH Vancomycin HCl 500 mg/Sodium Chloride 100 ml @ 100 mls/hr QMWF@1600 05/12/18 16:00 05/15/18 14:26 DC 05/14/18 17:03 100 MLS/HR Vancomycin HCl 2 gm/Sodium Chloride 500 ml @ 250 mls/hr 1X ONCE 05/09/18 15:00 05/09/18 16:59 DC 05/09/18 15:28 250 MLS/HR Vitamin D (Vitamin D3) 1,000 unit DAILY 05/10/18 09:00 05/16/18 08:14 1,000 UNIT Lab Laboratory Tests Test 05/15/18 17:04 05/15/18 20:45 05/16/18 08:01 05/16/18 08:46 Glucose (Fingerstick) 87 mg/dL (70-99) 88 mg/dL (70-99) 56 mg/dL (70-99) 58 mg/dL (70-99) Test 05/16/18 09:57 05/16/18 11:26 Glucose (Fingerstick) 77 mg/dL (70-99) 71 mg/dL (70-99) Results All relevant outside records, renal labs, imaging studies, telemetry/EKG's were reviewed. ONDINA YAO MD May 16, 2018 14:43
--- NOTE | 2018-05-16 14:59 | NUR ---
SW following pt. SW phoned and faxed orders to PP. PERFECTO arranged transportation via [facility] at 1600. Pt and aware of plan and agreeable. Packet on chart. NIC AMIN.
[2018-05-16 15:01] VITALS: BP 135/64
--- NOTE | 2018-05-16 16:07 | PATHOLOGY ---
[facility] Accession Number: [id number] . 01 Material submitted: . RIGHT BELOW KNEE LEG . 01 Clinical history: . Infection . 02 Diagnosis: Leg, right below knee amputation: - Viable skin, soft tissue, and bone at margin of excision. - Skin ulcerations, two. - Bone underlying areas of ulceration with no significant histopathologic diagnosis. - Blood vessels with calcified atherosclerosis and focal narrowing. (SKM:saritha; 05/16/2018) QMS/05/16/2018 . 02 Electronically signed: . Peyman Burns MD, Pathologist NPI- [id number] . 01 Gross description: . Received in a red biohazard bag without fixative labeled "Vivek Mei JR, right below knee leg", is a below the knee amputation of right leg measuring 30 cm from proximal skin resection margin to heel and 35 cm from heel to tip of big toe. Extending above the soft tissue resection margin are two segments of bone, fibula measuring 5.0 cm in length by 3.7 x 2.5 cm and a tibia 3.0 cm in length by 1.6 x 1.0 cm. The proximal skin, underlying soft tissue, muscle and bone margins appear viable. There are two ulcers with joyce-yellow purulent exudate and focal area of necrosis within the ulcer bed. The largest ulcer is at the heel measuring 5.5 x 5.2 cm and a the other on the medial aspect ofbig toe measuring 1.8 x 1.5 cm. Sectioningthrough the ulcers show a necrotic underlying cut surface with possible extension to the underlying bone. The vasculature is patent. Sample Grader tissue is submitted as follows: A1. Proximal margin, skin and muscle A2. Proximal margin, bone after decalcification (fibula = inked black) A3. Proximal margin, vasculature A4. Heel ulcer to underlying bone after decalcification A5. Big toe ulcer to underlying bone after decalcification A6. Vessels, posterior inked black and dorsalis pedis inked blue (SWS; 05/14/2018) SHS/SHS . 02 Pathologist provided ICD-10: I70.239 . 02 CPT . 397806 Specimen Comment: A courtesy copy of this report has been sent to Specimen Comment: [phone], , , . Specimen Comment: Report sent to ,DR ROY,DR TSANG / DR BROOKS Specimen Comment: A duplicate report has been generated due to demographic updates. Performed at: 01 [facility] [address], [place] [id number] MD Peter De Leon MD Phone: [phone] Performed at: 02 [facility] [address], [place] [id number] MD Ricky Knight MD Phone: [phone]
--- NOTE | 2018-05-16 17:58 | NUR ---
Discharge Note: [facility] [address] Discharge instructions and discharge home medications reviewed with Other facility and a copy given. All questions have been answered and understanding verbalized. The following instructions and handouts were given: Discharge Instructions Discontinued lines and drains: Left Peripheral IV, Catheter intact. Patient discharged to [facility] via Transport. Report called in to Gilda. Discussed orders, wound care, follow up appointments, blood glucose levels, and prescriptions included.
--- NOTE | 2018-06-11 07:25 | PDOC3 ---
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 PAD Problems Medical Problems: (1) Open wound of right foot Status: Acute (2) Osteomyelitis Status: Acute Brief Hospital Course Allergies Allergies Coded Allergies Type Severity Reaction Last Updated Verified atorvastatin Allergy Intermediate 03/07/18 Yes bacitracin Allergy Intermediate 05/31/17 Yes neomycin Allergy Intermediate 05/31/17 Yes polymyxin B Allergy Intermediate 05/31/17 Yes rosiglitazone Allergy Intermediate 03/07/18 Yes Brief Hospital Course Mr. Zuniga is a 77 old male with PVD, hx Dm2, poor control and had prior problems with this same foot, had refused prior surgery, this time, wound worse, entire leg at risk, he agreed to BKRubi, Dr. Walters, surg went well DC to SNU and f/u with vasc surg one weeek Discharge Information Condition at Discharge: Improved Follow Up: Weeks Disposition/Orders: D/C to Another Facility Scheduled Amoxicillin/Potassium Clav (Amox Tr-K Clv 500-125 Mg Tab) 1 Each Tablet, 1 TAB PO DAILY for wound infection, #5 Prescribed by: VICENTE FLORES on 05/16/18 1307 Aspirin (Aspirin Ec) 81 Mg Tablet., 81 MG PO DAILYWBKFT for PAD for 30 Days, # 30 Ref 11 Prescribed by: JOSE MORA MD on 03/08/18 1350 Last Action: Continued on 05/10/18832 by VICENTE FLORES Bumetanide (Bumetanide) 2 Mg Tablet, 1 TAB PO DAILY, #30 Ref 5 (Reported) Entered as Reported by: JOSE R FINK on 07/29/15 2244 Last Action: Converted on 05/10/18832 by VICENTE FLORES Cholecalciferol (Vitamin D3) (Vitamin D3) 1,000 Unit Tablet, 1 TAB PO DAILY, # 90 Ref 3 (Reported) Entered as Reported by: WILLI MOHAMUD on 07/30/15 1128 Last Action: Continued on 05/10/18832 by VICENTE FLORES Clopidogrel Bisulfate (Plavix) 75 Mg Tablet, 75 MG PO DAILY for TO PREVENT BLOOD CLOTS, #30 Ref 0 (Reported) Entered as Reported by: JOANN ROBERTSON on 01/08/18 0739 Last Action: Continued on 05/10/18832 by VICENTE FLORES Hydrocodone/Apap 5-325 ([place] 5-325 Tablet) 1 Each Tablet, 1 TAB PO Q4-6HRS for pain for 6 Days, #30 Prescribed by: VICENTE FLORES on 05/16/18 1307 Insulin Aspart (Niacinamide) (Fiasp 100 Unit/ml Vial) 100 Unit/1 Ml Vial, 7 UNIT SQ TIDAC for diabetes for 30 Days Prescribed by: VICENTE FLORES on 05/16/18 1307 Insulin Glargine,Hum.rec.anlog (Lantus Solostar) 100 Unit/1 Ml Insuln.pen, 8 UNIT SQ QHS for diabetes, #15 Ref 3 Prescribed by: VICENTE FLORES on 05/16/18 1307 Lisinopril (Lisinopril) 20 Mg Tablet, 1 TAB PO DAILY for HTN, #30 Ref 5 ( Reported) Entered as Reported by: KENNEDY GROSS on 03/07/18 07 Metolazone (Metolazone) 5 Mg Tablet, 5 MG PO DAILY, #30 Ref 0 (Reported) Entered as Reported by: RUBÉN KWON on 12/27/172202 Last Action: Converted on 05/10/18832 by VICENTE FLORES Metoprolol Tartrate (Metoprolol Tartrate) 25 Mg Tablet, 1 TAB PO BID, #180 Ref 1 (Reported) Entered as Reported by: RUBÉN KWON on 12/27/172202 Last Action: Continued on 05/10/18832 by VICENTE FLORES Rosuvastatin Calcium (Crestor) 20 Mg Tablet, 0.5 TAB PO DAILY for high cholesterol, #30 Ref 5 (Reported) Entered as Reported by: KENNEDY GROSS on 03/07/18 0700 Last Action: Converted on 05/10/18832 by VICENTE FLORES Sertraline Hcl (Sertraline Hcl) 100 Mg Tablet, 100 MG PO DAILY for ANTI- DEPRESSANT, Ref 0 (Reported) Entered as Reported by: JOANN ROBERTSON on 01/08/1836 Last Action: Converted on 05/10/18832 by VICENTE FLORES Sodium Bicarbonate (Sodium Bicarbonate) 650 Mg Tablet, 650 MG PO BID, (Reported) Entered as Reported by: JOANN ROBERTSON on 01/08/18 0739 Last Action: Continued on 05/10/18832 by VICENTE FLORES Tamsulosin Hcl (Flomax) 0.4 Mg Cap.er.24h, 0.4 MG PO DAILY, #30 Ref 3 Prescribed by: VICENTE FLORES on 08/01/15 1425 Last Action: Continued on 05/10/18832 by VICENTE FLORES Trazodone Hcl (Trazodone Hcl) 50 Mg Tablet, 3 TAB PO QHS for Sleep and depression, #30 Ref 1 (Reported) Entered as Reported by: KENNEDY GROSS on 03/07/18 0716 Last Action: Continued on 05/10/18832 by VICENTE FLORES Patient Instructions Patient Instructions > 30 minutes today w. face to face discusssion VICENTE FLORES MD Jun 11, 2018 07:25
== END 2018-05-16 15:20 | DRG 239 ==
LOC: ER 12:52 → 5 NORTH 15:05
PROVIDERS: ADMIT Family Medicine; ATTEND Family Medicine
PROC: 5A1D70Z Performance of Urinary Filtration, Intermittent, Less than 6 Hours Per Day (ICD-10-PCS; 2018-05-10)
PROC: 5A1D70Z Performance of Urinary Filtration, Intermittent, Less than 6 Hours Per Day (ICD-10-PCS; 2018-05-12)
PROC: 0Y6H0Z1 Detachment at Right Lower Leg, High, Open Approach (ICD-10-PCS; principal; 2018-05-14 09:30)
PROC: 5A1D70Z Performance of Urinary Filtration, Intermittent, Less than 6 Hours Per Day (ICD-10-PCS; 2018-05-15)
PROC: 5A1D70Z Performance of Urinary Filtration, Intermittent, Less than 6 Hours Per Day (ICD-10-PCS; 2018-05-16)
DX: E11.52 Type 2 diabetes mellitus with diabetic peripheral angiopathy with gangrene (principal); N18.6 End stage renal disease; M86.171 Other acute osteomyelitis, right ankle and foot; I13.2 Hypertensive heart and chronic kidney disease with heart failure and with stage 5 chronic kidney disease, or end stage renal disease; L97.419 Non-pressure chronic ulcer of right heel and midfoot with unspecified severity; I96 Gangrene, not elsewhere classified; E11.69 Type 2 diabetes mellitus with other specified complication; E11.621 Type 2 diabetes mellitus with foot ulcer; E11.22 Type 2 diabetes mellitus with diabetic chronic kidney disease; I70.202 Unspecified atherosclerosis of native arteries of extremities, left leg; D63.1 Anemia in chronic kidney disease; L98.429 Non-pressure chronic ulcer of back with unspecified severity; L97.529 Non-pressure chronic ulcer of other part of left foot with unspecified severity; E11.42 Type 2 diabetes mellitus with diabetic polyneuropathy; F41.9 Anxiety disorder, unspecified; E21.3 Hyperparathyroidism, unspecified; E78.5 Hyperlipidemia, unspecified; I25.10 Atherosclerotic heart disease of native coronary artery without angina pectoris; I48.91 Unspecified atrial fibrillation; I50.9 Heart failure, unspecified; J44.9 Chronic obstructive pulmonary disease, unspecified; K21.9 Gastro-esophageal reflux disease without esophagitis; M19.90 Unspecified osteoarthritis, unspecified site; N40.0 Benign prostatic hyperplasia without lower urinary tract symptoms; Z79.899 Other long term (current) drug therapy; Z99.2 Dependence on renal dialysis; Z82.49 Family history of ischemic heart disease and other diseases of the circulatory system; Z86.14 Personal history of Methicillin resistant Staphylococcus aureus infection; Z86.73 Personal history of transient ischemic attack (TIA), and cerebral infarction without residual deficits; Z89.511 Acquired absence of right leg below knee; Z91.19 Patient's noncompliance with other medical treatment and regimen; Z95.0 Presence of cardiac pacemaker; Z95.1 Presence of aortocoronary bypass graft
CPT/HCPCS: 36415; 73630; 80048; 80053; 80076; 80202; 81001; 82962; 83605; 83690; 83880; 84484; 85025; 85027; 85651; 86706; 87040; 87086; 87340; 87641; 88305; 88311; 93005; 93925; 96365; 96367; A7015; J0696; J1100; J1815; J2001; J2248; J2270; J2405; J2543; J2704; J3010; J3260; J3370; J3490; J7030; J7040; J7042; 97110; 97530; 99285-25

== ENCOUNTER → 2018-05-09 | Outpatient (CLI) | payer MEDICARE ==
[2018-03-26 07:00] VITALS: BP 132/80
== END | disposition home or self-care (01) ==
LOC: PMGWOUND 11:03
PROVIDERS: ATTEND Preventive Medicine Undersea and Hyperbaric Medicine
DX: E11.621 Type 2 diabetes mellitus with foot ulcer (principal); I87.313 Chronic venous hypertension (idiopathic) with ulcer of bilateral lower extremity; L97.524 Non-pressure chronic ulcer of other part of left foot with necrosis of bone; L97.515 Non-pressure chronic ulcer of other part of right foot with muscle involvement without evidence of necrosis; L97.416 Non-pressure chronic ulcer of right heel and midfoot with bone involvement without evidence of necrosis; I70.203 Unspecified atherosclerosis of native arteries of extremities, bilateral legs; E11.69 Type 2 diabetes mellitus with other specified complication; M86.8X7 Other osteomyelitis, ankle and foot; E11.52 Type 2 diabetes mellitus with diabetic peripheral angiopathy with gangrene; I96 Gangrene, not elsewhere classified; E11.42 Type 2 diabetes mellitus with diabetic polyneuropathy; E11.649 Type 2 diabetes mellitus with hypoglycemia without coma; E11.51 Type 2 diabetes mellitus with diabetic peripheral angiopathy without gangrene; I13.2 Hypertensive heart and chronic kidney disease with heart failure and with stage 5 chronic kidney disease, or end stage renal disease; E11.22 Type 2 diabetes mellitus with diabetic chronic kidney disease; N18.6 End stage renal disease; I50.89 Other heart failure; L84 Corns and callosities; I48.1 Persistent atrial fibrillation; I48.2 Chronic atrial fibrillation; G89.29 Other chronic pain; M54.9 Dorsalgia, unspecified; F41.9 Anxiety disorder, unspecified; I42.9 Cardiomyopathy, unspecified; I25.2 Old myocardial infarction; E78.49 Other hyperlipidemia; M19.90 Unspecified osteoarthritis, unspecified site; J44.9 Chronic obstructive pulmonary disease, unspecified; K21.9 Gastro-esophageal reflux disease without esophagitis; F32.9 Major depressive disorder, single episode, unspecified; I25.10 Atherosclerotic heart disease of native coronary artery without angina pectoris; E66.01 Morbid (severe) obesity due to excess calories; Z68.38 Body mass index [BMI] 38.0-38.9, adult; Z99.2 Dependence on renal dialysis; Z79.4 Long term (current) use of insulin; Z90.49 Acquired absence of other specified parts of digestive tract
CPT/HCPCS: 99214; G0463

== ENCOUNTER → 2018-05-21 | Outpatient (CLI) | payer MEDICARE ==
[2018-05-16 15:01] VITALS: BP 135/64
[~2018-05-21] MED LIST changes: +AMOX1TAB10 PO; +INSU100V34 SQ
== END | disposition home or self-care (01) ==
LOC: PMGWOUND 09:21
PROVIDERS: ATTEND Preventive Medicine Undersea and Hyperbaric Medicine
DX: T87.89 Other complications of amputation stump (principal); E11.621 Type 2 diabetes mellitus with foot ulcer; I87.313 Chronic venous hypertension (idiopathic) with ulcer of bilateral lower extremity; I70.203 Unspecified atherosclerosis of native arteries of extremities, bilateral legs; L97.524 Non-pressure chronic ulcer of other part of left foot with necrosis of bone; L97.511 Non-pressure chronic ulcer of other part of right foot limited to breakdown of skin; L97.411 Non-pressure chronic ulcer of right heel and midfoot limited to breakdown of skin; E11.622 Type 2 diabetes mellitus with other skin ulcer; L97.221 Non-pressure chronic ulcer of left calf limited to breakdown of skin; L98.411 Non-pressure chronic ulcer of buttock limited to breakdown of skin; L89.322 Pressure ulcer of left buttock, stage 2; E11.52 Type 2 diabetes mellitus with diabetic peripheral angiopathy with gangrene; I96 Gangrene, not elsewhere classified; E11.69 Type 2 diabetes mellitus with other specified complication; M86.171 Other acute osteomyelitis, right ankle and foot; E11.649 Type 2 diabetes mellitus with hypoglycemia without coma; E11.42 Type 2 diabetes mellitus with diabetic polyneuropathy; I13.2 Hypertensive heart and chronic kidney disease with heart failure and with stage 5 chronic kidney disease, or end stage renal disease; E11.22 Type 2 diabetes mellitus with diabetic chronic kidney disease; N18.6 End stage renal disease; I50.9 Heart failure, unspecified; L84 Corns and callosities; G89.29 Other chronic pain; M54.9 Dorsalgia, unspecified; F41.9 Anxiety disorder, unspecified; I25.2 Old myocardial infarction; E78.49 Other hyperlipidemia; I48.0 Paroxysmal atrial fibrillation; I48.1 Persistent atrial fibrillation; I48.2 Chronic atrial fibrillation; I42.9 Cardiomyopathy, unspecified; E21.3 Hyperparathyroidism, unspecified; M19.90 Unspecified osteoarthritis, unspecified site; F32.9 Major depressive disorder, single episode, unspecified; K21.9 Gastro-esophageal reflux disease without esophagitis; J44.0 Chronic obstructive pulmonary disease with (acute) lower respiratory infection; I25.10 Atherosclerotic heart disease of native coronary artery without angina pectoris; E66.01 Morbid (severe) obesity due to excess calories; Z68.38 Body mass index [BMI] 38.0-38.9, adult; Z79.4 Long term (current) use of insulin; Z99.2 Dependence on renal dialysis; Z90.49 Acquired absence of other specified parts of digestive tract; Z86.73 Personal history of transient ischemic attack (TIA), and cerebral infarction without residual deficits; Y83.5 Amputation of limb(s) as the cause of abnormal reaction of the patient, or of later complication, without mention of misadventure at the time of the procedure
CPT/HCPCS: 99214; G0463